=== PATIENT | male | born 1965 | race Caucasian/White ===

== ENCOUNTER 2018-05-18 14:30 | Outpatient (RCR) | payer MEDICAID, SELFPAY ==
--- NOTE | 2018-07-21 13:14 | COCO.CNN ---
Primary Reason for Visit Medical/Dental/Vision (DSMES (Visit date 05/18/18 at [facility]) Referral to Care Coordination Referral to Care Coordination: No Referral to Services: No - Referral From Referral From: PCP Care Plan - Plan of Care Assessment/Background: Edward is here for f/u DSME support. He presents with the following. DM MEDS: Started Victoza 0.6mg 3 days ago. Currently taking U-500 45u at breakfast and supper. Unable to routinely take dose of U-500 at lunch. MONITORING: FBS today 145mg/dl. Had woke up with some sweating in the early AM over the past 2 days, he did not check BS at the time however symptoms relieved with glucose tablets. Previous CGM did show pattern of nocturnal hypoglycemia more than ? the nights in a week. OTHER: Injury to R thigh from latrine cleaner chain ~1wk ago. Had used some ointment initially but is not now. He feels it is ?not? improving. Visual inspection reveals dry, healing/scabbed wound bed ~ thumb size with no pain, erythema or warmth. Bruised area fading. . INTERVENTION: DM MEDS: (Discussed Victoza dosing and what to do if he misses dose, and how to titrate. Reviewed importance of insulin timing). RISK REDUCTION: (Hypoglycemia risks, prevention, treatment protocol. LT complications of hyperglycemia and evident need of mid-day insulin coverage. Wound care/monitoring measures) PROBLEM SOLVING: (options to improve success with lifestyle and DM management). HEALTHY EATING: (Carb ID, goals, carb counting and portion review). Plan of Care: Edward is still interested in moving forward to get his own personal CGM and eventually would like an insulin pump. He is assisted with completing the CGM application so insurance coverage may be determined. Drop supper U-500 by additional 10% to 35u, especially on days he is able to take noon time U-500 dose. F/u appt scheduled with CDE in 2wks. SMPE Self Management Goals: Prevent low blood sugars by taking U-500 BEFORE breakfast and supper meals, and at lunch when able (as above with supper dose reduction). * *. Increase Victoza to 1.2mg on Tuesday and then 1.8mg in 1 more week. Continue to monitor leg wound for s/s of infection. Report in 3 days if no improvement. Confidence Level (enter 1-10): 7 Action Plan/Progress: Pt did not show for 06/14/18 DSMES visit with CDE at [facility]. Attempt made to reschedule. MONET Cabrera, CDE
--- NOTE | 2018-07-21 13:22 | PDOC.CNN_ITS ---
Primary Reason for Visit Medical/Dental/Vision (DSMES (Visit date 05/18/18 at [facility]) Referral to Care Coordination Referral to Care Coordination: No Referral to Services: No - Referral From Referral From: PCP Care Plan - Plan of Care Assessment/Background: Edward is here for f/u DSME support. He presents with the following. DM MEDS: Started Victoza 0.6mg 3 days ago. Currently taking U-500 45u at breakfast and supper. Unable to routinely take dose of U-500 at lunch. MONITORING: FBS today 145mg/dl. Had woke up with some sweating in the early AM over the past 2 days, he did not check BS at the time however symptoms relieved with glucose tablets. Previous CGM did show pattern of nocturnal hypoglycemia more than the nights in a week. 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 Had used some ointment initially but is not now. He feels it is not improving. Visual inspection reveals dry, healing/scabbed wound bed ~ thumb size with no pain, erythema or warmth. Bruised area fading. - . INTERVENTION: DM MEDS: (Discussed Victoza dosing and what to do if he misses dose, and how to titrate. Reviewed importance of insulin timing). RISK REDUCTION: (Hypoglycemia risks, prevention , treatment protocol. LT complications of hyperglycemia and evident need of mid -day insulin coverage. Wound care/monitoring measures) PROBLEM SOLVING: ( options to improve success with lifestyle and DM management). HEALTHY EATING: (Carb ID, goals, carb counting and portion review). Plan of Care: Edward is still interested in moving forward to get his own personal CGM and eventually would like an insulin pump. He is assisted with completing the CGM application so insurance coverage may be determined. Drop supper U-500 by additional 10% to 35u, especially on days he is able to take noon time U-500 dose. F/u appt scheduled with CDE in 2wks. SMPE Self Management Goals: Prevent low blood sugars by taking U-500 BEFORE breakfast and supper meals, and at lunch when able (as above with supper dose reduction). * *. Increase Victoza to 1.2mg on Tuesday and then 1.8mg in 1 more week. Continue to monitor leg wound for s/s of infection. Report in 3 days if no improvement. Confidence Level (enter 1-10): 7 Action Plan/Progress: Pt did not show for 06/14/18 DSMES visit with CDE at [facility]. Attempt made to reschedule. Rick RN, CDE
== END 2018-07-21 14:30 ==
LOC: COCO 14:30
PROVIDERS: PCP Nurse Practitioner Family; Visit Provider Nurse Practitioner
DX: E11.65 Type 2 diabetes mellitus with hyperglycemia (principal)

== ENCOUNTER 2018-07-26 18:56 | Emergency (ER) | payer MEDICAID, SELFPAY ==
[2018-07-26 19:09] VITALS: BP 141/86; PULSE 96; RESP 16; TEMP 36.5; O2SAT 97
--- NOTE | 2018-07-26 20:02 | W.ED.GENAD ---
Discharge Plan Disposition Patient Disposition: HOME Condition: Fair Discharge Details Chief Complaint: Laceration Clinical Impression: Cellulitis Primary Care Provider: Camilla Sherman ED Provider: Cindy Snow Home Meds and New Rx's Prescriptions: New clindamycin HCl 150 mg capsule 450 mg PO TID Qty: 63 RF: 0 No Action clopidogrel 75 MG tablet 75 mg PO DAILY RF: 0 nitroglycerin 0.4 MG tablet, sublingual 0.4 mg Sublingual q5 minutes as direct RF: 0 sertraline [Zoloft] 100 MG tablet 100 mg PO DAILY Qty: 90 RF: 3 metformin 1,000 MG tablet 1,000 mg PO BID Qty: 180 RF: 3 aspirin 81 MG tablet,chewable 81 mg PO DAILY Qty: 90 RF: 3 rosuvastatin [Crestor] 40 MG tablet 40 mg PO HS Qty: 90 RF: 3 lisinopril 5 MG tablet 5 mg PO DAILY Qty: 90 RF: 3 spironolactone 25 MG tablet 12.5 mg PO DAILY RF: 0 blood sugar diagnostic [[employer] Ultra Test] 1 EACH strip 1 ea Miscellaneous AC & HS Qty: 350 RF: 3 lancets 1 EACH misc 1 ea Miscellaneous QID Qty: 350 RF: 3 triamcinolone acetonide 15 GM cream 1 film Topical 2-4 times daily PRN Qty: 1 RF: 0 pen needle, diabetic 1 EACH needle Miscellaneous TID Qty: 300 RF: 3 insulin regular hum U-500 conc [Humulin R U-500 (Conc) Kwikpen] 500 UNIT/1 ML insulin pen SQ See instructions Qty: 5 RF: 0 liraglutide [Victoza 2-Alfonso] 0.6 MG/0.1 ML pen injector 1.2 mg SQ DAILY Qty: 3 RF: 3 metoprolol succinate 100 MG tablet extended release 24 hr 100 mg PO DAILY RF: 0 Discharge Instructions Instructions: Cellulitis (ED) Additional Instructions: Encourage hydration. Take antibiotics as prescribed. If symptoms take the entire course. I would like you to follow-up with recyclable materials collector as soon as possible. If you develop fever/chills, pain, discharge from spreading of the redness or new/worsening symptoms please seek care urgently once again. Please call recyclable materials collector tomorrow to schedule ointment. Referrals: Karlos Worrell DPM [DPM [facility] STAFF PHYSICIAN] - 3 days ( ) Discharge Data Discharge Date/Time-TO BE ENTERED AT DEPARTURE: 07/26/18 20:26 Medical Decision Making [facility] Narrative Medical decision making narrative: Patient presents today with chief complaint of erythema at the base of the right great toe where the nail has recently fallen off. On exam. He is noted to have erythema. No warmth, no discharge. There are bits of the nail still embedded in the base of the nailbed. Patient is afebrile, nontoxic-appearing. Patient is afebrile. Denies any fevers or chills at home. Will be treated with antibiotics and close follow-up with recyclable materials collector. I asked her daycare director to ensure that follow-up does occur. We discussed new/worsening symptoms emergency care urgently once again. All questions and concerns were addressed and he is in agreement with this plan. HPI - General Adult General Mode of arrival: ambulatory. Date/Time Provider Initiated Documentation: 07/26/18 19:47. Limitations to Documentation: no limitations. Information obtained by: patient and family. HPI Narrative: Patient is a 52-year-old type I diabetic presenting today with chief complaint of right great toe erythema. His report that his very thickened toenail fell off last week. He reports that yesterday he began noting erythema at the base of the nail bed. Has not noted any discharge. Patient has severe neuropathy and is insensate at the affected area. He denies any fevers or chills. Reports that he has been ambulating well and has not noted any systemic symptoms. Glucose is typically well controlled. Reports over the past several days it has been around 130 when he is congested. Patient does have a recyclable materials collector in [facility] but has not seen them in quite some time. Related Data Home Medications Medication Instructions Recorded Confirmed clopidogrel 75 mg PO DAILY tab-cap 07/15/17 07/31/18 nitroglycerin 0.4 mg SUBLINGUAL q5 minutes as 07/20/17 07/31/18 direct spironolactone 12.5 mg PO DAILY 08/04/17 07/31/18 metoprolol succinate 100 mg PO DAILY tab-cap 07/19/18 07/31/18 Previous Rx's Medication Instructions Recorded clindamycin HCl 450 mg PO TID #63 cap 07/26/18 Allergies Allergy/AdvReac Type Severity Reaction Status Date / Time bee venom protein (honey bee) Allergy Severe Swelling/Ed Unverified 07/31/18 14:17 capri Penicillins Allergy Unknown Rash Unverified 07/31/18 14:17 shellfish derived Allergy Unknown Rash; Unverified 07/31/18 14:17 swelling General Stated Complaint: Laceration VAN: 3 Review of Systems Constitutional Reports as per HPI, Denies chills and Denies fever(s) Cardiovascular Denies chest pain and Denies dyspnea Respiratory Denies cough and Denies dyspnea Gastrointestinal Denies change in bowel habits, Denies nausea and Denies vomiting Musculoskeletal Reports as per HPI and Reports numbness (associates with chronic peripheral neuropathy secondary to diabetes. No recent chagne in this) Integumentary/Breasts Reports as per HPI Neurologic Reports as per HPI and Reports numbness (associates with chronic peripheral neuropathy secondary to diabetes. No recent chagne in this) Exam Const General: cooperative, comfortable, no acute distress and well developed Nutritional Appearance: overweight Orientation: alert and awake Eyes General: appearance normal, both eyes and all related structures Resp Effort & Inspection: normal respiratory effort and no respiratory distress Auscultation: clear to auscultation bilaterally Cardio Rate: regular rate Rhythm: regular rhythm Heart Sounds: S1 normal and S2 normal Skin General skin exam: rashes and/or lesions noted (please see below for description) Neuro General: alert and awake Cognition: normal cognition Speech: speech normal Gait: normal gait Sensory Exam: sensory deficits noted (bilateral lower extremity numbness) Extrem General: abnormal to inspection (Exam of RLE signfiicant for a missing great toe nail. Surrounding tissue is erythematous and warm. No discharge. No area of fluctuance. The erythema is primarily at the base of the nail bed. Small amounts of nail remain in the bed. Does not extend proximally), full ROM and normal capillary refill (3 second cap refill) Psych Appearance: grossly normal Mental Status: mental status grossly normal Speech and Movement: speech and movement normal Mood: congruent mood Course Vital Signs Temperature 36.5 C 07/26/18 19:09 Pulse 96 H 07/26/18 19:09 Respiratory Rate 16 07/26/18 19:09 Blood Pressure 141/86 H 07/26/18 19:09 Pulse Oximetry 97 07/26/18 19:09 Temperature 36.5 C 07/26/18 19:09 Pulse 96 H 07/26/18 19:09 Respiratory Rate 16 07/26/18 19:09 Blood Pressure 141/86 H 07/26/18 19:09 Pulse Oximetry 97 07/26/18 19:09
--- NOTE | 2018-07-26 20:06 | ED.GENADUL_ITS ---
Discharge Plan Disposition Patient Disposition: HOME Condition: Fair Discharge Details Chief Complaint: Laceration Clinical Impression: Cellulitis Primary Care Provider: Camilla Sherman ED Provider: Cindy Snow Home Meds and New Rx's Prescriptions: New clindamycin HCl 150 mg capsule 450 mg PO TID Qty: 63 RF: 0 No Action clopidogrel 75 MG tablet 75 mg PO DAILY RF: 0 nitroglycerin 0.4 MG tablet, sublingual 0.4 mg Sublingual q5 minutes as direct RF: 0 sertraline [Zoloft] 100 MG tablet 100 mg PO DAILY Qty: 90 RF: 3 metformin 1,000 MG tablet 1,000 mg PO BID Qty: 180 RF: 3 aspirin 81 MG tablet,chewable 81 mg PO DAILY Qty: 90 RF: 3 rosuvastatin [Crestor] 40 MG tablet 40 mg PO HS Qty: 90 RF: 3 lisinopril 5 MG tablet 5 mg PO DAILY Qty: 90 RF: 3 spironolactone 25 MG tablet 12.5 mg PO DAILY RF: 0 blood sugar diagnostic [[employer] Ultra Test] 1 EACH strip 1 ea Miscellaneous AC & HS Qty: 350 RF: 3 lancets 1 EACH misc 1 ea Miscellaneous QID Qty: 350 RF: 3 triamcinolone acetonide 15 GM cream 1 film Topical 2-4 times daily PRN Qty: 1 RF: 0 pen needle, diabetic 1 EACH needle Miscellaneous TID Qty: 300 RF: 3 insulin regular hum U-500 conc [Humulin R U-500 (Conc) Kwikpen] 500 UNIT/1 ML insulin pen SQ See instructions Qty: 5 RF: 0 liraglutide [Victoza 2-Alfonso] 0.6 MG/0.1 ML pen injector 1.2 mg SQ DAILY Qty: 3 RF: 3 metoprolol succinate 100 MG tablet extended release 24 hr 100 mg PO DAILY RF: 0 Discharge Instructions Instructions: Cellulitis (ED) Additional Instructions: Encourage hydration. Take antibiotics as prescribed. If symptoms take the entire course. I would like you to follow-up with physical instructor as soon as possible. If you develop fever/chills, pain, discharge from spreading of the redness or new/worsening symptoms please seek care urgently once again. Please call physical instructor tomorrow to schedule ointment. Referrals: Karlos Worrell DPM [DPM [facility] STAFF PHYSICIAN] - 3 days ( ) Discharge Data Discharge Date/Time-TO BE ENTERED AT DEPARTURE: 07/26/18 20:26 Medical Decision Making [facility] Narrative Medical decision making narrative: Patient presents today with chief complaint of erythema at the base of the right great toe where the nail has recently fallen off. On exam. He is noted to have erythema. No warmth, no discharge. There are bits of the nail still embedded in the base of the nailbed. Patient is afebrile, nontoxic-appearing. Patient is afebrile. Denies any fevers or chills at home. Will be treated with antibiotics and close follow-up with physical instructor. I asked her career technical supervisor to ensure that follow-up does occur. We discussed new/worsening symptoms emergency care urgently once again. All questions and concerns were addressed and he is in agreement with this plan. HPI - General Adult General Mode of arrival: ambulatory . Date/Time Provider Initiated Documentation: 07/26/18 19:47 . Limitations to Documentation: no limitations . Information obtained by: patient and family . HPI Narrative: Patient is a 52-year-old type I diabetic presenting today with chief complaint of right great toe erythema. His report that his very thickened toenail fell off last week. He reports that yesterday he began noting erythema at the base of the nail bed. Has not noted any discharge. Patient has severe neuropathy and is insensate at the affected area. He denies any fevers or chills. Reports that he has been ambulating well and has not noted any systemic symptoms. Glucose is typically well controlled. Reports over the past several days it has been around 130 when he is congested. Patient does have a physical instructor in [facility] but has not seen them in quite some time. Related Data Home Medications Medication Instructions Recorded Confirmed clopidogrel 75 mg PO DAILY tab-cap 07/15/17 07/31/18 nitroglycerin 0.4 mg SUBLINGUAL q5 minutes as 07/20/17 07/31/18 direct spironolactone 12.5 mg PO DAILY 08/04/17 07/31/18 metoprolol succinate 100 mg PO DAILY tab-cap 07/19/18 07/31/18 Previous Rx's Medication Instructions Recorded clindamycin HCl 450 mg PO TID #63 cap 07/26/18 Allergies Allergy/AdvReac Type Severity Reaction Status Date / Time bee venom protein (honey bee) Allergy Severe Swelling/Ed Unverified 07/31/18 14: 17 capri Penicillins Allergy Unknown Rash Unverified 07/31/18 14:17 shellfish derived Allergy Unknown Rash; Unverified 07/31/18 14:17 swelling General Stated Complaint: Laceration VAN: 3 Review of Systems Constitutional Reports as per HPI, Denies chills and Denies fever(s) Cardiovascular Denies chest pain and Denies dyspnea Respiratory Denies cough and Denies dyspnea Gastrointestinal Denies change in bowel habits, Denies nausea and Denies vomiting Musculoskeletal Reports as per HPI and Reports numbness (associates with chronic peripheral neuropathy secondary to diabetes. No recent chagne in this) Integumentary/Breasts Reports as per HPI Neurologic Reports as per HPI and Reports numbness (associates with chronic peripheral neuropathy secondary to diabetes. No recent chagne in this) Exam Const General: cooperative, comfortable, no acute distress and well developed Nutritional Appearance: overweight Orientation: alert and awake Eyes General: appearance normal, both eyes and all related structures Resp Effort & Inspection: normal respiratory effort and no respiratory distress Auscultation: clear to auscultation bilaterally Cardio Rate: regular rate Rhythm: regular rhythm Heart Sounds: S1 normal and S2 normal Skin General skin exam: rashes and/or lesions noted (please see below for description ) Neuro General: alert and awake Cognition: normal cognition Speech: speech normal Gait: normal gait Sensory Exam: sensory deficits noted (bilateral lower extremity numbness) Extrem General: abnormal to inspection (Exam of RLE signfiicant for a missing great toe nail. Surrounding tissue is erythematous and warm. No discharge. No area of fluctuance. The erythema is primarily at the base of the nail bed. Small amounts of nail remain in the bed. Does not extend proximally), full ROM and normal capillary refill (3 second cap refill) Psych Appearance: grossly normal Mental Status: mental status grossly normal Speech and Movement: speech and movement normal Mood: congruent mood Course Vital Signs Temperature 36.5 C 07/26/18 19:09 Pulse 96 H 07/26/18 19:09 Respiratory Rate 16 07/26/18 19:09 Blood Pressure 141/86 H 07/26/18 19:09 Pulse Oximetry 97 07/26/18 19:09 Temperature 36.5 C 07/26/18 19:09 Pulse 96 H 07/26/18 19:09 Respiratory Rate 16 07/26/18 19:09 Blood Pressure 141/86 H 07/26/18 19:09 Pulse Oximetry 97 07/26/18 19:09
[2018-07-26] MEDS: Clindamycin 150 MG CAP 450 MG PO ×2 (20:20)
[2018-07-26 20:24] VITALS: BP 133/93; PULSE 90; RESP 16; TEMP 37; O2SAT 100
--- NOTE | 2018-07-31 10:48 | PDOC.ERCMPRO ---
Care Management Progress Note 07/31/18-Pt seen in ED on 07/26/18 by DEEPAK Roldan for infected Right Great Toe due poorly controlled Diabetes. Referral faxed to Dr. Josseline Worrell at [facility].
== END 2018-07-26 20:26 | disposition home or self-care (01) ==
PROVIDERS: Emergency Provider Physician Assistant; PCP Nurse Practitioner Family
DX: L03.031 Cellulitis of right toe (principal); I11.0 Hypertensive heart disease with heart failure; I50.9 Heart failure, unspecified; E11.9 Type 2 diabetes mellitus without complications; Z79.4 Long term (current) use of insulin
CPT/HCPCS: 99283

== ENCOUNTER 2018-10-27 06:55 | Day surgery (SDC) | payer MEDICAID, SELFPAY ==
[2018-10-27 07:22] VITALS: BP 128/88; PULSE 99; RESP 20; TEMP 35.3; O2SAT 96
[2018-10-27] MEDS: Lactated Ringers 1,000 ML 30 ML IV (07:49)
--- NOTE | 2018-10-27 08:40 | W.COLOREPORT ---
Date of service: 10/27/18 Time of Service: 08:40 Colonoscopy Report Date of procedure: 10/27/18 Pre-op diagnosis general: Personal history of colon polyps Post-op diagnosis procedure note: other (Normal colon to the cecum) Procedure: Colonoscopy to the cecum Surgeon: Garcia Perry Anesthesia proc note operative: MAC (Rodriguez Kumar CRNA; ASA 2 Mallampati class II) Estimated blood loss (mL): 0 Pathology: none sent Complications: None Disposition: same day Indications: 52-year-old gentleman presenting for colorectal cancer screening with a personal history of colon polyps. He is been asymptomatic since his last colonoscopy, and has no family history of colorectal cancer. The risks and benefits of the procedure have been reviewed with him as has the procedure itself. Consents been obtained to proceed with colonoscopy Prep: Miralax/Dulcolax (Prep quality good) Procedure Start Time: 08:42 Procedure End Time: 09:10 Retraction Time: 15 Findings: In examining the colon from cecum to anus, no abnormalities were noted. Procedure Description: The patient was seen in the day surgery waiting area. His identification was confirmed, and procedure checked. He was then brought to the procedure room. Monitoring for telemetry, blood pressure, oxygen saturation, and end tidal CO2 monitoring were applied. An appropriate time out was performed to confirm, identification, allergies, medication, procedure, was performed. Sedation was titrated for affect by the [employer]; Once adequate sedation was achieved, I performed a inspection of the external perineum, and a digitial rectal examination. No significant external abnormalities were noted. On digital rectal examination, there was no blood, no masses, good rectal tone, and a normal prostate. I advanced the colonoscope from the anus to the cecum under direct visualization. The cecum was identified by the ileal-cecal valve, and the appendiceal orifice. The scope was then withdrawn in circumferential manner from the cecum to the rectum. No abnormalites were noted in the colon. The scope was then withdrawn into the rectum, and retroflexed. No abnormalities were noted of the rectum or anorectal junction. The scope was then withdrawn, terminating the procedure. There were no complications during the procedure, and the patient tolerated the procedure well. He was returned to the day surgery recovery area in good condition. Plan: Will continue with routine screening for colorectal cancer according to current consensus guidelines, which is currently 10 years.
--- NOTE | 2018-10-27 09:19 | W.PM.DSUDISC ---
Discharge Plan Disposition Patient Disposition: HOME Condition: Good Discharge Details Reason For Visit: SCREENING Attending Provider: Garcia Perry Primary Care Provider: Camilla Sherman Home Meds and New Rx's Prescriptions: Continue empagliflozin [Jardiance] 25 mg tablet 25 mg PO DAILY Qty: 90 RF: 3 gabapentin 100 mg capsule 100 mg PO .QHS PRN (Reason: foot pain) Qty: 20 RF: 0 clopidogrel 75 MG tablet 75 mg PO DAILY RF: 0 nitroglycerin 0.4 MG tablet, sublingual 0.4 mg Sublingual q5 minutes as direct RF: 0 metformin 1,000 MG tablet 1,000 mg PO BID Qty: 180 RF: 3 aspirin 81 MG tablet,chewable 81 mg PO DAILY Qty: 90 RF: 3 spironolactone 25 MG tablet 12.5 mg PO DAILY RF: 0 blood sugar diagnostic [[employer] Ultra Test] 1 EACH strip 1 ea Miscellaneous AC & HS Qty: 350 RF: 3 lancets 1 EACH misc 1 ea Miscellaneous QID Qty: 350 RF: 3 pen needle, diabetic 1 EACH needle Miscellaneous TID Qty: 300 RF: 3 insulin regular hum U-500 conc [Humulin R U-500 (Conc) Kwikpen] 500 UNIT/1 ML insulin pen 40 unit SQ BID Qty: 5 RF: 0 metoprolol succinate 100 MG tablet extended release 24 hr 100 mg PO DAILY RF: 0 lisinopril 5 mg tablet 5 mg PO DAILY Qty: 90 RF: 3 rosuvastatin [Crestor] 40 mg tablet 40 mg PO DAILY Qty: 90 RF: 3 sertraline [Zoloft] 100 mg tablet 100 mg PO DAILY Qty: 90 RF: 3 triamcinolone acetonide 15 GM cream 1 film Topical 2-4 times daily PRN PRNRF: 0 liraglutide [Victoza 2-Alfonso] 0.6 MG/0.1 ML pen injector 1.8 mg SQ DAILY RF: 0 Discharge Instructions Instructions: Colonoscopy (DC) Activity:: Activity as Tolerated Diet:: As Tolerated Discharge Orders Discharge Orders: Discharge Order (Routine); Ordered 10/27/18 Ordered By: Garcia Perry DS: Diagnosis Discharge Diagnosis (1) Personal history of colonic polyps: Status: Acute Asessment and Plan: Colonoscopy performed: Colonoscopy Report Date of procedure: 10/27/18 Pre-op diagnosis general: Personal history of colon polyps Post-op diagnosis procedure note: other (Normal colon to the cecum) Procedure: Colonoscopy to the cecum Surgeon: Garcia Perry Anesthesia proc note operative: MAC (Rodriguez Kumar CRNA; ASA 2 Mallampati class II) Estimated blood loss (mL): 0 Pathology: none sent Complications: None Disposition: same day Indications: 52-year-old gentleman presenting for colorectal cancer screening with a personal history of colon polyps. He is been asymptomatic since his last colonoscopy, and has no family history of colorectal cancer. The risks and benefits of the procedure have been reviewed with him as has the procedure itself. Consents been obtained to proceed with colonoscopy Prep: Miralax/Dulcolax (Prep quality good) Procedure Start Time: 08:42 Procedure End Time: 09:10 Retraction Time: 15 Findings: In examining the colon from cecum to anus, no abnormalities were noted. Procedure Description: The patient was seen in the day surgery waiting area. His identification was confirmed, and procedure checked. He was then brought to the procedure room. Monitoring for telemetry, blood pressure, oxygen saturation, and end tidal CO2 monitoring were applied. An appropriate time out was performed to confirm, identification, allergies, medication, procedure, was performed. Sedation was titrated for affect by the PLANT OPERATOR CONTROL ROOM OPERATOR; Once adequate sedation was achieved, I performed a inspection of the external perineum, and a digitial rectal examination. No significant external abnormalities were noted. On digital rectal examination, there was no blood, no masses, good rectal tone, and a normal prostate. I advanced the colonoscope from the anus to the cecum under direct visualization. The cecum was identified by the ileal-cecal valve, and the appendiceal orifice. The scope was then withdrawn in circumferential manner from the cecum to the rectum. No abnormalites were noted in the colon. The scope was then withdrawn into the rectum, and retroflexed. No abnormalities were noted of the rectum or anorectal junction. The scope was then withdrawn, terminating the procedure. There were no complications during the procedure, and the patient tolerated the procedure well. He was returned to the day surgery recovery area in good condition. Plan: Will continue with routine screening for colorectal cancer according to current consensus guidelines, which is currently 10 years.
[2018-10-27 09:40] VITALS: BP 126/79; PULSE 100; RESP 18; TEMP 36.4; O2SAT 99
== END 2018-10-27 09:55 | disposition home or self-care (01) ==
PROVIDERS: PCP Nurse Practitioner Family; Visit Provider Surgery
PROC: 0DJD8ZZ Inspection of Lower Intestinal Tract, Via Natural or Artificial Opening Endoscopic (ICD-10-PCS; CPT 45378; principal; 2018-10-27 08:15)
DX: Z12.11 Encounter for screening for malignant neoplasm of colon (principal); Z86.010 Personal history of colon polyps; E11.9 Type 2 diabetes mellitus without complications; Z79.4 Long term (current) use of insulin; I10 Essential (primary) hypertension; G47.33 Obstructive sleep apnea (adult) (pediatric); I25.10 Atherosclerotic heart disease of native coronary artery without angina pectoris
CPT/HCPCS: 45378

== ENCOUNTER 2018-11-02 05:57 | Emergency (ER) | payer MEDICAID, SELFPAY ==
[2018-11-02] VITALS (47 sets, daily range): BP systolic 103–118; BP diastolic 72–86; PULSE 93–115; RESP 12–38; O2SAT 90–96
--- NOTE | 2018-11-02 06:38 | DI.RAD_ITS ---
SYMPTOM/DIAGNOSIS: CHEST PAIN CHEST X-RAY: Portable AP view. The cardiac silhouette is within normal limits. The lungs are clear and well expanded. No effusions or pneumothoraces are identified. The bones are intact. There is a gas bubble seen in the region of the left hemidiaphragm which appears mostly subdiaphragmatic. There is a question of a supradiaphragmatic component and a hiatal hernia, or gastric volvulus should be considered. Follow up as clinically appropriate.
[2018-11-02] MEDS: Normal Saline Flush 10 ML SYR IVP (06:39)
[2018-11-02] MEDS: fentaNYL 100 MCG/2 ML VIAL IM (06:40)
[2018-11-02] MEDS: Aspirin 81 MG CHEW 243 MG CH (06:41)
--- NOTE | 2018-11-02 06:46 | ED.GENADUL_ITS ---
Discharge Plan Disposition Patient Disposition: HOME Condition: Stable Discharge Details Clinical Impression: Chest pain Primary Care Provider: Camilla Sherman ED Provider: Jaime Taylor Home Meds and New Rx's Prescriptions: No Action empagliflozin [Jardiance] 25 mg tablet 25 mg PO DAILY Qty: 90 RF: 3 gabapentin 100 mg capsule 100 mg PO .QHS PRN (Reason: foot pain) Qty: 20 RF: 0 clopidogrel 75 MG tablet 75 mg PO DAILY RF: 0 nitroglycerin 0.4 MG tablet, sublingual 0.4 mg Sublingual q5 minutes as direct RF: 0 metformin 1,000 MG tablet 1,000 mg PO BID Qty: 180 RF: 3 aspirin 81 MG tablet,chewable 81 mg PO DAILY Qty: 90 RF: 3 spironolactone 25 MG tablet 12.5 mg PO DAILY RF: 0 blood sugar diagnostic [[employer] Ultra Test] 1 EACH strip 1 ea Miscellaneous AC & HS Qty: 350 RF: 3 lancets 1 EACH misc 1 ea Miscellaneous QID Qty: 350 RF: 3 pen needle, diabetic 1 EACH needle Miscellaneous TID Qty: 300 RF: 3 insulin regular hum U-500 conc [Humulin R U-500 (Conc) Kwikpen] 500 UNIT/1 ML insulin pen 40 unit SQ BID Qty: 5 RF: 0 metoprolol succinate 100 MG tablet extended release 24 hr 100 mg PO DAILY RF: 0 lisinopril 5 mg tablet 5 mg PO DAILY Qty: 90 RF: 3 rosuvastatin [Crestor] 40 mg tablet 40 mg PO DAILY Qty: 90 RF: 3 sertraline [Zoloft] 100 mg tablet 100 mg PO DAILY Qty: 90 RF: 3 triamcinolone acetonide 15 GM cream 1 film Topical 2-4 times daily PRN PRNRF: 0 liraglutide [Victoza 2-Alfonso] 0.6 MG/0.1 ML pen injector 1.8 mg SQ DAILY RF: 0 Discharge Instructions Instructions: Chest Pain (ED) Additional Instructions: Please follow-up on November 08 at 1030 for your stress test here in the hospital. In the meantime if you notice any worsening of your symptoms, or any new symptoms such as vomiting, diarrhea, fever, chills, shortness of breath, chest pain, numbness, weakness, or fainting , please return immediately to the emergency department for reevaluation. Please follow up with your primary care provider as soon as possible for reassessment and reevaluation. As always, it was a pleasure participating in your medical care today. Referrals: Camilla Sherman NP [Primary Care Provider] - Medical Decision Making <Pantera Booth MD - Last Filed: 11/02/18 07:14> 53 yo male who states he has a hx of cad with prior stent placement, T2DM, htn, who comes in with chief complaint of chest pain while laying down around 430 this morning. He denies any recent sob, fevers, chills. Denies radiation of the pain, n/v, diaphoresis. HE is in no distress on my exam, no jvd or pedal edema, no abd tenderness, clear lungs on auscultation. HE tried nitro prior to arrival without relief. He has a heart score of 3 based on risk factors and age, will send troponin. He has no significant tachycardia or hypoxia and no evidence of dvt so doubt PE. Has no tearing back pain so doubt dissection and normal vascular exam. labs show no acute findings, he remains hd stable. Recommended observation but he declined and has capacity to make his own decisions, understands risks/benefits including /becoming disabled. HE is willing to stay for a second troponin so will order this and will be signed out to oncoming provider for continued monitoring Differential Diagnosis nstemi, chest wall pain, dissection Imaging Data Radiologic Study: Attestation: I personally reviewed and interpreted this imaging study as follows: Imaging: X-Ray My impression: no acute findings, does have elevation of right hemidiaphragm Lab Data Lab results reviewed: Yes I reviewed the patient's lab results. ECG Data Attestation: I personally reviewed and interpreted this ECG (s) as follows: Interpretation: sinus tachycardia, rate of 111, pr 192, qtc 440, no acute ischemic findings <Jaime Taylor DO - Last Filed: 11/02/18 11:28> The patient was signed out to me my my colleague Dr. Booth. Patient has been doing well, he is still chest pain-free at this time. Heart rate appears stable at around 100-103. While waiting for the second troponin I did order a d-dimer, out of concern for the low likelihood of a PE. D-dimer was negative. Lung sounds remain clear, the patient continues to appear hemodynamically stable and is asking to be discharged. Chest x-ray shows evidence of suspected hiatal hernia, however the radiologist said gastric volvulus may be on the differential of symptomatology correlated with this. Repeat exam demonstrates no abdominal tenderness whatsoever, no complaint of abdominal tenderness, and no history of nausea or vomiting. The patient signs and symptoms are clinically inconsistent with a gastric volvulus. I feel his symptoms are secondary to a hiatal hernia for the chest x-ray findings. With a negative EKG, serial troponins that are negative, and a negative d-dimer, after being rehydrated and still continuing to feel very well I feel he can be discharged home with close cardiology follow-up, as well as an outpatient stress test. 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 We discussed red flags for which to return and the patient understands. We also again offered admission the patient is refusing this and requested to be discharged. I have extensively reviewed the treatment plan and discharge instructions with the patient. I have addressed all patient concerns at this time. The patient was made aware of what symptoms to monitor for that would warrant a return to the emergency department. Discussed the plan with the patient, they demonstrate verbal understanding and agreement with our assessment and plan at this time. CHEST X-RAY: Portable AP view. The cardiac silhouette is within normal limits. The lungs are clear and well expanded. No effusions or pneumothoraces are identified. The bones are intact. There is a gas bubble seen in the region of the left hemidiaphragm which appears mostly subdiaphragmatic. There is a question of a supradiaphragmatic component and a hiatal hernia, or gastric volvulus should be considered. Follow up as clinically appropriate. HPI <Pantera Booth MD - Last Filed: 11/02/18 07:14> General Mode of arrival: ambulatory . Date/Time Provider Initiated Documentation: 11/02/18 06:37 . Limitations to Documentation: no limitations . Information obtained by: patient . History of Present Illness 53 year old M presents to the emergency department with the chief complaint of chest pain, described as moderate, with intensity rated at 5. Quality is described as aching, and is localized to the chest. Patient reports no radiation. Patient started experiencing this hour(s) (2) and it has been constant. No relieving factors improve symptom(s), No exacerbating factors reported . P atient notes no other symptoms.. Patient did receive the following treatments prior to arrival, other (nitro) Related Data Home Medications Medication Instructions Recorded Confirmed clopidogrel 75 mg PO DAILY tab-cap 07/15/17 10/27/18 nitroglycerin 0.4 mg SUBLINGUAL q5 minutes as 07/20/17 10/27/18 direct aspirin 81 mg PO DAILY #90 tab-cap 07/28/17 10/27/18 metformin 1,000 mg PO BID #180 tab-cap 07/28/17 10/27/18 spironolactone 12.5 mg PO DAILY 08/04/17 10/27/18 blood sugar diagnostic [OneTouch #350 strip 08/16/17 08/07/18 Ultra Test] lancets #350 ea 08/24/17 08/07/18 pen needle, diabetic #300 03/02/18 08/07/18 insulin regular hum U-500 conc 40 unit SQ BID #5 box 05/01/18 10/27/18 [Humulin R U-500 (Conc) Kwikpen] metoprolol succinate 100 mg PO DAILY tab-cap 07/19/18 10/27/18 empagliflozin 25 mg tablet 25 mg PO DAILY #90 tab-cap 08/11/18 10/27/18 lisinopril 5 mg tablet 5 mg PO DAILY #90 tab-cap 09/13/18 10/27/18 rosuvastatin 40 mg tablet 40 mg PO DAILY #90 tab-cap 09/13/18 10/27/18 sertraline 100 mg tablet 100 mg PO DAILY #90 tab-cap 09/13/18 10/27/18 gabapentin 100 mg capsule 100 mg PO .QHS PRN #20 cap 10/10/18 10/27/18 liraglutide [Victoza 2-Alfonso] 1.8 mg SQ DAILY 10/26/18 10/27/18 triamcinolone acetonide 1 film TOPICAL 2-4 times daily PRN 10/26/18 10/27/18 PRN Previous Rx's Medication Instructions Recorded blood sugar diagnostic [OneTouch #350 strip 08/16/17 Ultra Test] lancets #350 ea 08/24/17 empagliflozin 25 mg tablet 25 mg PO DAILY #90 tab-cap 08/11/18 lisinopril 5 mg tablet 5 mg PO DAILY #90 tab-cap 09/13/18 rosuvastatin 40 mg tablet 40 mg PO DAILY #90 tab-cap 09/13/18 sertraline 100 mg tablet 100 mg PO DAILY #90 tab-cap 09/13/18 gabapentin 100 mg capsule 100 mg PO .QHS PRN #20 cap 10/10/18 Allergies Allergy/AdvReac Type Severity Reaction Status Date / Time bee venom protein (honey bee) Allergy Severe Swelling/Ed Unverified 10/27/18 07:09 capri Penicillins Allergy Unknown Rash Unverified 10/27/18 07:09 shellfish derived Allergy Unknown Rash; Unverified 10/27/18 07:09 swelling General VAN: 3 Review of Systems <Pantera Booth MD - Last Filed: 11/02/18 07:14> Review of Systems All systems reviewed & are unremarkable except as noted in HPI and below Constitutional Denies chills, Denies fever(s) and Denies weakness ENT Denies change in voice Cardiovascular Denies chest pain and Denies dyspnea Respiratory Denies dyspnea Gastrointestinal Denies abdominal pain, Denies nausea and Denies vomiting Musculoskeletal Denies joint swelling Neurologic Denies weakness Endocrine Denies cold intolerance and Denies heat intolerance Allergic/Immunologic Denies urticaria PFS <Pantera Booth MD - Last Filed: 11/02/18 07:14> Type 2 diabetes mellitus with retinopathy, with long-term current use of insulin (Chronic 10/27/17) Tubular adenoma of colon (Inactive 10/18/14) Sensorineural hearing loss, bilateral (Chronic 11/24/17) Restless leg syndrome (Chronic 10/31/14) Pulmonary hypertension (Chronic 07/14/17) Obstructive sleep apnea, adult (Chronic 10/31/14) Nonproliferative diabetic retinopathy (Chronic) Noncompliance with medication regimen (Chronic 07/06/13) NSTEMI (non-ST elevated myocardial infarction) (Inactive 07/11/17) Morbid obesity (Chronic 07/06/13) Hyperlipidemia (Chronic 07/06/13) Erectile dysfunction (Chronic 07/06/13) Essential hypertension (Chronic 07/06/13) Elevated ferritin level (Chronic 10/20/17) Depression (Chronic 11/25/11) Conductive hearing loss (Chronic 07/06/13) Chronic HFrEF (heart failure with reduced ejection fraction) (Chronic 07/20/18) ASCVD (arteriosclerotic cardiovascular disease) (Chronic 07/28/17) ASCVD (arteriosclerotic cardiovascular disease) Adult BMI > 30 HFrEF (heart failure with reduced ejection fraction) (07/11/17) HLD (hyperlipidemia) HTN (hypertension) Hyperuricemia NSTEMI (non-ST elevated myocardial infarction) (07/11/17) VIVIANE (obstructive sleep apnea) RLS (restless legs syndrome) T2DM (type 2 diabetes mellitus) Social History number of children: 1 current occupational status: employed 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 Smoking/Tobacco Use Status: Never alcohol intake: current alcohol intake frequency: holidays/special occasions only substance use type: does not use Exam <Pantera Booth MD - Last Filed: 11/02/18 07:14> Const General: no acute distress Orientation: alert HENMT Head: normal to inspection Ears: external ears normal General nose exam: external nose normal Mouth: moist mucous membranes Eyes General: appearance normal, both eyes and all related structures Neck Neck: normal visual inspection Resp Effort & Inspection: normal respiratory effort and able to speak in complete sentences Cardio Rate: regular rate GI Palpation: soft Skin General skin exam: no rashes or lesions noted Neuro General: alert and oriented x3 Extrem General: normal to inspection Psych Mental Status: mental status grossly normal Course <Pantera Booth MD - Last Filed: 11/02/18 07:14> Pain Level 8 11/02/18 06:40
[2018-11-02 06:52] LABS: Anion Gap 14.2 mmol/L (3-11); BUN 25 mg/dL (7-18); CO2 23.8 mmol/L (21.0-32.0); CREATININE 0.87 mg/dL (0.70-1.30); Chloride 99 mmol/L (98-107); Glucose 243 mg/dL (70-100); Magnesium 1.6 mg/dL (1.8-2.4); Potassium 3.9 mmol/L (3.5-5.1); Sodium 137 mmol/L (136-145)
[2018-11-02 06:53] LABS: Troponin I < 0.02 ng/mL (0.00-0.06)
[2018-11-02 06:55] LABS: Abs Immature Grans 0.03 k/cumm (0.0-0.09); Absolute Basophil Count 0.02 k/cumm (0.0-0.2); Absolute Eosinophil Count 0.29 k/cumm (0.0-0.7); Absolute Monocyte Count 0.85 k/cumm (0.11-0.7); Absolute Neutrophil Count 7.81 k/cumm (1.2-6.7); Basophils % 0.2; Eosinophils % 2.9; HCT 47.2 % (40.0-50.0); HGB 17.2 g/dL (13.5-17.5); Immature Grans % 0.3; Mean Corp. HGB Concentration 36.4 g/dL (32.0-36.0); Mean Corpuscular Hemoglobin 30.9 pg (27.0-33.0); Mean Corpuscular Volume 84.7 fL (80-95); Mean Platelet Volume 9.7 fL (8.0-11.0); Monocytes % 8.5; Neutrophils % 78.1; Platelet Count 203 x1000/uL (130-400); RBC 5.57 m/cumm (4.50-6.00); RBC Distribution Width 12.5 % (11.8-14.1)
[2018-11-02 06:57] LABS: INR 1.1 (1.0-3.5); PTT Activated 28.1 sec (21.0-31.4)
[2018-11-02] MEDS: Normal Saline 1,000 ML 1000 ML IV (09:04)
[2018-11-02 09:39] LABS: D-Dimer 266 ng/mlFEU (<500)
[2018-11-02 10:56] LABS: Troponin I 0.02 ng/mL (0.00-0.06)
== END 2018-11-02 11:22 | disposition home or self-care (01) ==
PROVIDERS: Emergency Medicine; Emergency Provider Student in an Organized Health Care Education/Training Program; PCP Nurse Practitioner Family
DX: R07.9 Chest pain, unspecified (principal); I10 Essential (primary) hypertension; E11.9 Type 2 diabetes mellitus without complications; Z79.4 Long term (current) use of insulin; Z95.5 Presence of coronary angioplasty implant and graft
CPT/HCPCS: 36415; 80048; 93005; 96360; 96361; 96372; 99285; 71045; 83735; 84484; 85025; 85379; 85610; 85730; 93010

== ENCOUNTER 2018-11-08 00:19 | Outpatient (CLI) | payer MEDICAID, SELFPAY ==
--- NOTE | 2018-11-08 10:30 | ETT_ITS ---
*[facility]* *[facility]* [address] [place] [address] Stress Electrocardiography Fercho protocol Date of study: 11/08/2018 *PATIENT PRESENTATION* Height: 180.3cm (71in) Blood Pressure: Weight: 115.9kg (255lb) BSA: 2.45m^2 Referring physician: Kendal Carr Ordering physician: Jaime Taylor Impressions: Negative stress test after maximal exercise. Summary: 1. Stress ECG conclusions: The stress ECG is negative. De Jesus treadmill score: 6. This score predicts a low risk of cardiac events. 2. Stress: The target heart rate was achieved. The heart rate response to stress is normal. There is a normal resting blood pressure with an appropriate response to stress. The patient experienced no chest pain during stress. Exercise capacity is moderately diminished for age (7 METS). 3. Baseline ECG: Normal sinus rhythm with left anterior fascicular block. Indication: R07.9. History: REASON FOR VISIT: THIS PATIENT WITH A SIGNIFICANT HISTORY OF INSULIN DEPENDENT DIABETES, CORONARY ARTERY DISEASE WITH STENT PLACEMENT IN 2017 AND HYPERTENSION WAS SEEN IN THE ED ON 11/02/18 BECAUSE OF AN EPISODE OF NON RADIATING CHEST PAIN ON 11/02/18 WHILE LYING DOWN THAT AM. PT REPORTS HE HAS HAD NO FURTHER CHEST PAIN SINCE THE AM OF 11/02/18. Risk factors: Hypertension. Diabetes mellitus. Obesity. Dyslipidemia. Cholesterol: 212mg/dl. HDL: 42mg/dl. LDL: 36mg/dl. Triglycerides: 123mg/dl. ALLERGIES: PENICILLIN. SHRIMP. BEE STINGS. MEDICATIONS: CLOPIDOGREL 75 MG DAILY. NITROGLYCERIN 0.4 MG PRN. LISINOPRIL 5 MG DAILY. ASPIRIN 81 MG DAILY. METFORMIN 1000 MG BID. ROSUVASTATIN 40 MG DAILY. SERTRALINE 100 MG DAILY. INSULIN U-500 40 UNITS MORNING AND HS. INSULIN U-500 5 UNITS AT NOON. SPIRONOLACTONE 12.5 MG DAILY. CARVEDILOL 12.5 MG BID. HYDROCHLOROTHIAZIDE 25 MG DAILY. VICTOZA 1.8 MG SQ Q AM. Protocol: Fercho protocol. Baseline ECG: SINUS RHYTHM. HR 97 BPM. Normal sinus rhythm with left anterior fascicular block. Stress protocol: + +---+ + !Stage !HR !BP (mmHg) ! + +---+ + !Baseline supine !97 !142/98 (113)! + +---+ + !Baseline standing !119!122/82 (95) ! + +---+ + !Stage I; 1.7mph, 10degrees; 3 min !129!126/82 (97) ! + +---+ + !Stage II; 2.5mph, 12degrees; 3 min!143!168/92 (117)! + +---+ + !Peak stress !143! ! + +---+ + !Immediate post stress !143!130/78 (95) ! + +---+ + !Recovery; 3 min !106!152/98 (116)! + +---+ + !Recovery; 6 min !103!136/78 (97) ! + +---+ + * Stress results: Maximal heart rate during stress was 143bpm (87% of maximal predicted heart rate). The maximal predicted heart rate was 165bpm. The target heart rate was achieved. The heart rate response to stress is normal. There is a normal resting blood pressure with an appropriate response to stress. The rate-pressure product for the peak heart rate and blood pressure was 65643gi Hg/min. The patient experienced no chest pain during stress. Exercise capacity is moderately diminished for age (7 METS). Stress ECG: TREADMILL PORTION OF STRESS TEST ENDED IN 5 MINUTES & 53 SECONDS DUE TO SHORTNESS OF BREATH AND FATIGUE. NORMAL HEART RATE AND BLOOD PRESSURE RESPONSE TO EXERCISE MAX HR = 143 % OF TARGET = 86 NO ECTOPY APPROXIMATE METS ACHIEVED = 7.05 NO ANGINA NO SIGNIFICANT ST SEGMENT CHANGES MODERATELY DIMINISHED FUNCTIONAL CAPACITY FOR EXERCISE. The stress ECG is negative. De Jesus treadmill score: 6. This score predicts a low risk of cardiac events. Study data: Gonzalo Wilson MD supervised and was readily available during the procedure. This study was interpreted by [facility]. Study status: Routine. Consent: The risks, benefits, and alternatives to the procedure were explained to the patient and informed consent was obtained. Procedure: Initial setup. A baseline ECG was recorded. Surface ECG leads and manual cuff blood pressure measurements were monitored. Heart sounds: Normal. Lung sounds: Normal. Treadmill exercise testing was performed using the Fercho protocol. Study completion: The patient tolerated the procedure well and was discharged from the lab. Discharge: The patient left the laboratory in stable condition. Birthdate: Patient birthdate: 1965. Sex: Gender: male. Study date: Study date: 11/08/2018. Study time: 10:30 AM. Signature Documentation: The Stress ECG portion of this study was interpreted by Gonzalo Wilson MD. Electronically signed by Gonzalo Wilson 11/08/2018 13:13
== END 2018-11-08 00:39 ==
PROVIDERS: PCP Nurse Practitioner Family; Visit Provider Student in an Organized Health Care Education/Training Program
DX: R07.9 Chest pain, unspecified (principal); E11.9 Type 2 diabetes mellitus without complications; Z79.4 Long term (current) use of insulin; I10 Essential (primary) hypertension; I25.2 Old myocardial infarction; I25.10 Atherosclerotic heart disease of native coronary artery without angina pectoris; Z95.5 Presence of coronary angioplasty implant and graft
CPT/HCPCS: 93017

== ENCOUNTER 2018-11-08 09:36 | Outpatient (CLI) | payer MEDICAID, SELFPAY ==
[2018-11-08 10:27] LABS: Abs Immature Grans 0.03 k/cumm (0.0-0.09); Absolute Basophil Count 0.03 k/cumm (0.0-0.2); Absolute Eosinophil Count 0.16 k/cumm (0.0-0.7); Absolute Lymphocyte Count 1.87 k/cumm (1.2-3.4); Absolute Neutrophil Count 4.45 k/cumm (1.2-6.7); Basophils % 0.4; Eosinophils % 2.3; HCT 46.8 % (40.0-50.0); HGB 16.5 g/dL (13.5-17.5); Immature Grans % 0.4; Lymphocytes % 26.6; Mean Corp. HGB Concentration 35.3 g/dL (32.0-36.0); Mean Corpuscular Hemoglobin 30.4 pg (27.0-33.0); Mean Corpuscular Volume 86.3 fL (80-95); Mean Platelet Volume 9.6 fL (8.0-11.0); Monocytes % 7.1; Neutrophils % 63.2; Platelet Count 234 x1000/uL (130-400); RBC 5.42 m/cumm (4.50-6.00); RBC Distribution Width 12.6 % (11.8-14.1); White Blood Cell Count 7.04 k/cumm (4.4-10.8)
[2018-11-08 11:12] LABS: ALT 62 U/L (12-78); AST 24 U/L (15-37); Alkaline Phosphatase 150 U/L (46-116); Anion Gap 10.6 mmol/L (3-11); BUN 25 mg/dL (7-18); Bilirubin, Total 0.5 mg/dL (0.2-1.0); CO2 25.4 mmol/L (21.0-32.0); Calcium 10.3 mg/dL (8.5-10.1); Chloride 98 mmol/L (98-107); Cholesterol 187 mg/dL (50-200); Glucose 363 mg/dL (70-100); HDL Cholesterol 35 mg/dL (40-60); LDL CHOLESTEROL 84 mg/dL (<100); Magnesium 1.9 mg/dL (1.8-2.4); Potassium 4.7 mmol/L (3.5-5.1); Sodium 134 mmol/L (136-145); Total Protein 7.4 g/dL (6.4-8.2); Triglyceride 473 mg/dL (30-150)
[2018-11-08 11:13] LABS: Microalb ug/mg Crea 46.3 ug/mg Cr
[2018-11-08 11:17] LABS: Ferritin 677 ng/mL (8-388)
== END 2018-11-08 09:56 ==
PROVIDERS: PCP Nurse Practitioner Family; Visit Provider Nurse Practitioner Family
DX: E83.42 Hypomagnesemia (principal); E11.65 Type 2 diabetes mellitus with hyperglycemia; E78.5 Hyperlipidemia, unspecified; Z79.4 Long term (current) use of insulin
CPT/HCPCS: 36415; 80053; 80061; 83721; 82043; 82570; 82728; 83735; 85025

== ENCOUNTER 2019-02-05 11:17 | Outpatient (CLI) | payer MEDICAID, SELFPAY ==
[2019-02-05 12:10] LABS: Albumin 3.9 g/dL (3.4-5.0); Calcium 9.5 mg/dL (8.5-10.1)
== END 2019-02-05 11:37 ==
PROVIDERS: PCP Nurse Practitioner Family; Visit Provider Nurse Practitioner Family
DX: E83.52 Hypercalcemia (principal)
CPT/HCPCS: 36415; 82040; 82310

== ENCOUNTER 2019-02-13 11:45 | Observation (INO) | payer MEDICAID, SELFPAY ==
[2019-02-13] VITALS (54 sets, daily range): BP systolic 108–137; BP diastolic 71–90; PULSE 70–97; RESP 14–24; TEMP 36–36.6; O2SAT 94–99
--- NOTE | 2019-02-13 12:08 | DI.RAD_ITS ---
SYMPTOMS/DIAGNOSIS: CHEST PAIN PORTABLE AP CHEST AT 12:35 HOURS: There is mild elevation of the diaphragm on the right as noted on previous examinations. The heart is not enlarged. The lungs are grossly clear. CONCLUSION: No evidence of acute disease.
--- NOTE | 2019-02-13 12:09 | W.ED.GENAD ---
Discharge Plan Disposition Patient Disposition: [facility] INPATIENT Condition: Fair Discharge Details Chief Complaint: Chest Pain Clinical Impression: Chest pain Primary Care Provider: Camilla Sherman ED Provider: Anson Chew [place] Meds and New Rx's Prescriptions: No Action Jardiance 25 mg tablet 25 mg PO DAILY Qty: 90 RF: 3 gabapentin 100 mg capsule 100 mg PO .QHS PRN (Reason: foot pain) Qty: 20 RF: 0 spironolactone 25 mg tablet 12.5 mg PO DAILY Qty: 45 RF: 3 clopidogrel 75 MG tablet 75 mg PO DAILY RF: 0 OneTouch Ultra Test 1 EACH strip 1 ea Miscellaneous AC & HS Qty: 350 RF: 3 lancets 1 EACH misc 1 ea Miscellaneous QID Qty: 350 RF: 3 pen needle, diabetic 1 EACH needle Miscellaneous TID Qty: 300 RF: 3 metoprolol succinate 100 MG tablet extended release 24 hr 100 mg PO DAILY RF: 0 lisinopril 5 mg tablet 5 mg PO DAILY Qty: 90 RF: 3 rosuvastatin [Crestor] 40 mg tablet 40 mg PO DAILY Qty: 90 RF: 3 sertraline [Zoloft] 100 mg tablet 100 mg PO DAILY Qty: 90 RF: 3 Humulin R U-500 (Conc) Kwikpen 500 unit/mL (3 mL) insulin pen 40 unit subcut BID Qty: 5 RF: 6 metformin 1,000 mg tablet 1,000 mg PO BID Qty: 180 RF: 3 nitroglycerin 0.4 mg tablet, sublingual 0.4 mg SL Q5M MDD 3 doses PRN (Reason: chest pain) Qty: 30 RF: 0 aspirin 81 mg tablet,chewable 81 mg PO DAILY Qty: 90 RF: 3 triamcinolone acetonide 15 GM cream 1 film Topical 2-4 times daily PRN PRNRF: 0 Victoza 2-Alfonso 0.6 MG/0.1 ML pen injector 1.8 mg SQ DAILY RF: 0 Medical Decision Making Patient presenting with dyspnea with exertion for the last few days associated with a couple episodes of chest pain at rest. Nitroglycerin resolved his chest pain this morning. His initial EKG shows sinus rhythm at [address] segments. Pulse ox is normal. He has no symptoms currently. He will receive aspirin and we will obtain labs and chest x-ray. I will discuss with cardiology at [facility] but at the very least he should be admitted here to trend his troponins and receive stress testing. Laboratory studies are unremarkable other than his glucose being elevated to 375 and his magnesium being a little low at 1.6. First troponin is negative. Chest x-ray is unremarkable per radiology. Case discussed with cardiology at [facility]. Agree with admission to trend troponins as well as to observe for any further episodes of chest pain. If no issues overnight, echo and stress testing in the morning. Continue his aspirin and Plavix but no heparin necessary at this time. If his troponin trends positive or he redevelops symptoms recommend contacting [facility]. Case discussed with hospitalist. The above discussion with cardiology was relayed to hospitalist, Dr. Yoon. Patient accepted for admission to telemetry for further management and evaluation. Lab Data Lab results reviewed: Yes I reviewed the patient's lab results. ECG Data Attestation: I personally reviewed and interpreted this ECG (s) as follows: Prior ECG tracings: available for review Interpretation: Sinus rhythm at 94. Left axis with normal intervals. Normal ST segments. HPI General Mode of arrival: ambulatory. Date/Time Provider Initiated Documentation: 02/13/19 12:00. Limitations to Documentation: no limitations. Information obtained by: patient and old records reviewed. HPI Narrative: Patient presents to ED with complaint of chest pain. Patient reports that over the last few days he has noticed increased dyspnea with exertion but not pain. 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 Maybe had some shortness of breath associated with it. Bowers sweaty but not lightheaded or nauseated. Resolved on its own. Again this morning when he woke up he had a little more intense chest pain with diaphoresis and shortness of breath. He took a nitroglycerin and this resolved his symptoms but did give him a headache. He laid back down and went to sleep. When he woke up his told him he needed to come here for evaluation. He has not had recurrent chest pain since taking the nitroglycerin. The pain reminded him of the discomfort he had when he had his [place]. He has a stent in the mid LAD. Related Data Home Medications Medication Instructions Recorded Confirmed clopidogrel 75 mg PO DAILY tab-cap 07/15/17 02/13/19 [employer] Ultra Test #350 strip 08/16/17 02/05/19 lancets #350 ea 08/24/17 02/05/19 pen needle, diabetic #300 03/02/18 02/05/19 metoprolol succinate 100 mg PO DAILY tab-cap 07/19/18 02/13/19 empagliflozin 25 mg tablet 25 mg PO DAILY #90 tab-cap 08/11/18 02/13/19 lisinopril 5 mg tablet 5 mg PO DAILY #90 tab-cap 09/13/18 02/13/19 rosuvastatin 40 mg tablet 40 mg PO DAILY #90 tab-cap 09/13/18 02/13/19 sertraline 100 mg tablet 100 mg PO DAILY #90 tab-cap 09/13/18 02/13/19 gabapentin 100 mg capsule 100 mg PO .QHS PRN #20 cap 10/10/18 02/13/19 Victoza 2-Alfonso 1.8 mg SQ DAILY 10/26/18 02/13/19 triamcinolone acetonide 1 film TOPICAL 2-4 times daily PRN 10/26/18 02/13/19 PRN insulin regular human U-500 40 unit SUBCUT BID #5 ml 11/29/18 02/13/19 concentrate 500 unit/mL(3 mL) subcut pen metformin 1,000 mg tablet 1,000 mg PO BID #180 tab-cap 12/08/18 02/13/19 nitroglycerin 0.4 mg sublingual 0.4 mg SL Q5M PRN #30 tab-cap MDD 01/08/19 02/13/19 tablet 3 doses aspirin 81 mg chewable tablet 81 mg PO DAILY #90 tab-cap 01/18/19 02/13/19 spironolactone 25 mg tablet 12.5 mg PO DAILY #45 tab-cap 02/05/19 02/13/19 Previous Rx's Medication Instructions Recorded OneTouch Ultra Test #350 strip 08/16/17 lancets #350 ea 08/24/17 empagliflozin 25 mg tablet 25 mg PO DAILY #90 tab-cap 08/11/18 lisinopril 5 mg tablet 5 mg PO DAILY #90 tab-cap 09/13/18 rosuvastatin 40 mg tablet 40 mg PO DAILY #90 tab-cap 09/13/18 sertraline 100 mg tablet 100 mg PO DAILY #90 tab-cap 09/13/18 gabapentin 100 mg capsule 100 mg PO .QHS PRN #20 cap 10/10/18 insulin regular human U-500 40 unit SUBCUT BID #5 ml 11/29/18 concentrate 500 unit/mL(3 mL) subcut pen metformin 1,000 mg tablet 1,000 mg PO BID #180 tab-cap 12/08/18 nitroglycerin 0.4 mg sublingual 0.4 mg SL Q5M PRN #30 tab-cap MDD 01/08/19 tablet 3 doses aspirin 81 mg chewable tablet 81 mg PO DAILY #90 tab-cap 01/18/19 spironolactone 25 mg tablet 12.5 mg PO DAILY #45 tab-cap 02/05/19 Allergies Allergy/AdvReac Type Severity Reaction Status Date / Time bee venom protein (honey bee) Allergy Severe Swelling/Ed Verified 02/13/19 12:56 capri Penicillins Allergy Unknown Rash Verified 02/13/19 12:56 shellfish derived Allergy Unknown Rash; Verified 02/13/19 12:56 swelling General Stated Complaint: Chest Pain VAN: 2 Review of Systems Constitutional Denies chills, Denies fever(s), Reports headache(s), Denies poor appetite and Denies weakness Eyes Denies change in vision and Denies eye pain ENT Denies dizziness, Denies otalgia, Denies facial pain, Reports headache(s), Denies nasal congestion, Denies neck pain and Denies sore throat Cardiovascular Reports chest pain, Reports diaphoresis, Denies syncope, Denies pedal edema, Denies lightheadedness, Denies radiating jaw, neck or arm pain and Reports dyspnea on exertion Respiratory Denies chest congestion, Denies cough and Reports dyspnea on exertion Gastrointestinal Denies abdominal pain, Denies diarrhea, Reports nausea and Denies vomiting Genitourinary Denies dysuria and Denies flank pain Musculoskeletal Denies back pain and Denies neck pain Integumentary/Breasts Denies rash Neurologic Denies dizziness, Denies syncope, Reports headache(s), Denies focal weakness, Denies sensory deficit, Denies paresthesias and Denies weakness [facility] Medical History Microalbuminuria (Chronic) Type 2 diabetes mellitus with retinopathy, with long-term current use of insulin (Chronic 10/27/17) Tubular adenoma of colon (Inactive 10/18/14) Sensorineural hearing loss, bilateral (Chronic 11/24/17) Restless leg syndrome (Chronic 10/31/14) Pulmonary hypertension (Chronic 07/14/17) Obstructive sleep apnea, adult (Chronic 10/31/14) Nonproliferative diabetic retinopathy (Chronic) Noncompliance with medication regimen (Chronic 07/06/13) NSTEMI (non-ST elevated myocardial infarction) (Inactive 07/11/17) Morbid obesity (Chronic 07/06/13) Hyperlipidemia (Chronic 07/06/13) Erectile dysfunction (Chronic 07/06/13) Essential hypertension (Chronic 07/06/13) Elevated ferritin level (Chronic 10/20/17) Depression (Chronic 11/25/11) Conductive hearing loss (Chronic 07/06/13) Chronic HFrEF (heart failure with reduced ejection fraction) (Chronic 07/20/18) ASCVD (arteriosclerotic cardiovascular disease) (Chronic 07/28/17) Adult BMI > 30 Hyperuricemia RLS (restless legs syndrome) Surgical History S/P coronary artery stent placement (Inactive) Cholecystectomy (Inactive) Colonoscopy - IV Sedation (Inactive 10/14/14) Social History Smoking/Tobacco Use Status: Never Alcohol Intake: current Alcohol Intake frequency: holidays/special occasions only Drug use: Never Substance use type: does not use Household members: spouse Housing: apartment Number of Children: 1 Communication Needs: None 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 Pets and animals: No Current gender identity: male What type of physical activity do you participate in: other Details: skiing Frequency: other 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 mobile lounge driver or operator: No Do you feel safe at home: Yes Do you feel safe in your relationship?: Yes Exam Const General: cooperative, comfortable and no acute distress Orientation: alert and oriented x3 HENMT Head: normocephalic and atraumatic Mouth: moist mucous membranes Neck Neck: trachea midline and supple Chest Chest: no tenderness Resp Effort & Inspection: normal respiratory effort Auscultation: clear to auscultation bilaterally Cardio Rate: regular rate Rhythm: regular rhythm Heart Sounds: S1 normal and S2 normal Pulses: radial pulses present GI Inspection: normal to inspection and non-distended Palpation: soft and nontender Skin Rashes: no rashes Neuro General: alert, oriented x3, moves all extremities, no focal motor deficits and CN's II-XI intact bilaterally Cognition: normal cognition Speech: speech normal Sensory Exam: no sensory deficits noted Extrem General: normal to inspection, no clubbing, cyanosis or edema, no pedal edema and no calf tenderness Course Vital Signs Temperature 97.7 F 02/13/19 11:58 Pulse 97 H 02/13/19 11:58 Respiratory Rate 18 02/13/19 11:58 Blood Pressure 118/82 02/13/19 11:58 Pulse Oximetry 98 02/13/19 11:58 Temperature 97.7 F 02/13/19 11:58 Temperature Source Tympanic 02/13/19 11:58 Pulse 97 H 02/13/19 11:58 Respiratory Rate 18 02/13/19 11:58 Blood Pressure 118/82 02/13/19 11:58 Blood Pressure Position Supine 02/13/19 11:58 Pulse Oximetry 98 02/13/19 11:58 Oxygen Delivery Method Room Air 02/13/19 11:58 Oxygen Flow Rate 0 02/13/19 11:58 Pain Level 9 02/13/19 11:58
[2019-02-13] MEDS: Aspirin 81 MG CHEW 324 MG CH (12:27)
[2019-02-13 12:40] LABS: Abs Immature Grans 0.04 k/cumm (0.0-0.09); Absolute Basophil Count 0.03 k/cumm (0.0-0.2); Absolute Eosinophil Count 0.18 k/cumm (0.0-0.7); Absolute Lymphocyte Count 1.89 k/cumm (1.2-3.4); Absolute Monocyte Count 0.54 k/cumm (0.11-0.7); Absolute Neutrophil Count 5.45 k/cumm (1.2-6.7); Basophils % 0.4; Eosinophils % 2.2; HCT 42.8 % (40.0-50.0); HGB 15.1 g/dL (13.5-17.5); Immature Grans % 0.5; Lymphocytes % 23.2; Mean Corp. HGB Concentration 35.3 g/dL (32.0-36.0); Mean Corpuscular Hemoglobin 30.6 pg (27.0-33.0); Mean Corpuscular Volume 86.8 fL (80-95); Monocytes % 6.6; Neutrophils % 67.1; Platelet Count 205 x1000/uL (130-400); RBC 4.93 m/cumm (4.50-6.00); RBC Distribution Width 12.5 % (11.8-14.1); White Blood Cell Count 8.13 k/cumm (4.4-10.8)
[2019-02-13 12:59] LABS: ALT 81 U/L (12-78); AST 33 U/L (15-37); Albumin 3.5 g/dL (3.4-5.0); Alkaline Phosphatase 122 U/L (46-116); Anion Gap 10.6 mmol/L (3-11); BUN 19 mg/dL (7-18); Bilirubin, Total 0.5 mg/dL (0.2-1.0); CO2 24.4 mmol/L (21.0-32.0); CREATININE 1.05 mg/dL (0.70-1.30); Calcium 8.7 mg/dL (8.5-10.1); Chloride 99 mmol/L (98-107); Glucose 375 mg/dL (70-100); Magnesium 1.6 mg/dL (1.8-2.4); NT-proBNP 115 pg/mL; Potassium 4.3 mmol/L (3.5-5.1); Sodium 134 mmol/L (136-145); Total Protein 6.7 g/dL (6.4-8.2)
[2019-02-13 13:00] LABS: Troponin I < 0.02 ng/mL (0.00-0.06)
--- NOTE | 2019-02-13 15:11 | NUR.NOTE ---
Offered po liquids/solids x2. Patient declined both times. States he eats one meal a day. Declines water to drinkNursing Note:
[2019-02-13] MEDS: Clopidogrel 75 MG TAB PO (16:11)
[2019-02-13 16:47] LABS: Troponin I < 0.02 ng/mL (0.00-0.06)
[2019-02-13] MEDS: Insulin Aspart 300 UNITS/3 ML PEN SC (17:26)
--- NOTE | 2019-02-13 18:15 | W.PM.HP.N ---
Date of service: 02/13/19 Time of Service: 18:15 Assessment and Plan (1) Chest pain: Current visit: Yes Status: Acute Question of unstable angina. [facility] cardiology consulted by ED: recommends trending troponins, but continuing asa/plavix until then. May need a stress test vs heart cath, depending on troponin results. Monitor on tele. (2) ASCVD (arteriosclerotic cardiovascular disease): Current visit: No Status: Chronic S/p MADONNA to LAD in 06/2017 - continue asa, plavix, BB (finding out which one the patient is actually taking), sofie-i, statin. Check lipid panel. (3) Chronic HFrEF (heart failure with reduced ejection fraction): Current visit: No Status: Chronic EF improved to 50%. Monitor volume status. (4) Type 2 diabetes mellitus with hyperglycemia, with long-term current use of insulin: Current visit: No Status: Chronic I asked the patient's to bring in U 500. For now, will cover with 40 units of regular insulin with meals as well as resistant sliding scale. (5) Obstructive sleep apnea, adult: Current visit: No Status: Chronic Patient uses a mouth guard. Previously intolerant of CPAP. (6) Essential hypertension: Current visit: No Status: Chronic Clarifying medications. (7) Hyperlipidemia: Current visit: No Status: Chronic Checking fasting lipid panel Qualifiers: Hyperlipidemia type: unspecified Qualified Code(s): E78.5 - Hyperlipidemia, unspecified (8) DVT prophylaxis: Current visit: Yes Status: Acute Heparin SQ (9) Discharge planning issues: Current visit: Yes Status: Acute Full code. May require transfer to [facility] if cardiac cath is indicated. History of Present Illness Chief Complaint: Chest pain this morning Narrative: Mr Tang is a 53 year old male with PMHx of CAD s/p NSTEMI/MADONNA to LAD at [facility] in 06/2017, chronic systolic CHF/ICMO with EF of 50% in 11/06, poorly controlled IDDM2 with microalbuminuria, hypertension, hyperlipidemia, medical noncompliance, who presented to [facility] ED this morning reporting 2 episodes of chest pain that concerned his , who made him come to the hospital. 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 It happened around noon while he was working. It was dull, L-sided, accompanied by dizziness, nausea, and sweating. His blood sugar at the time was 171. He also noticed he got unusually short of breath walking up a hill. The pain lasted 1 hour. He did not take nitroglycerin with this pain. Today, the same pain woke him up from sleep at 5 am. It didn't go away until he took his nitroglycerin at 5:30. It did completely relieve the pain, but his insisted that he come to the hospital. The pain does remind him of the pain he had when he had the NSTEMI. He states he takes his medications as prescribed. Of note, the patient has a medication list on him that does not match either the medication list we have in our system or the one at [facility]. We are obtaining his medication list from [employer]. Review of Systems Review of Systems 12 systems reviewed. Pertinent positives and negatives are as per HPI. [facility] Medical History Microalbuminuria (Chronic) Type 2 diabetes mellitus with retinopathy, with long-term current use of insulin (Chronic 10/27/17) Tubular adenoma of colon (Inactive 10/18/14) Sensorineural hearing loss, bilateral (Chronic 11/24/17) Restless leg syndrome (Chronic 10/31/14) Pulmonary hypertension (Chronic 07/14/17) Obstructive sleep apnea, adult (Chronic 10/31/14) Nonproliferative diabetic retinopathy (Chronic) Noncompliance with medication regimen (Chronic 07/06/13) NSTEMI (non-ST elevated myocardial infarction) (Inactive 07/11/17) Morbid obesity (Chronic 07/06/13) Hyperlipidemia (Chronic 07/06/13) Erectile dysfunction (Chronic 07/06/13) Essential hypertension (Chronic 07/06/13) Elevated ferritin level (Chronic 10/20/17) Depression (Chronic 11/25/11) Conductive hearing loss (Chronic 07/06/13) Chronic HFrEF (heart failure with reduced ejection fraction) (Chronic 07/20/18) ASCVD (arteriosclerotic cardiovascular disease) (Chronic 07/28/17) Adult BMI > 30 Hyperuricemia RLS (restless legs syndrome) Surgical History S/P coronary artery stent placement (Inactive) Cholecystectomy (Inactive) Colonoscopy - IV Sedation (Inactive 10/14/14) Social History Smoking/Tobacco Use Status: Never Alcohol Intake: current Alcohol Intake frequency: holidays/special occasions only Drug use: Never Substance use type: does not use Household members: spouse Housing: apartment Number of Children: 1 Communication Needs: None 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 Pets and animals: No Current gender identity: male What type of physical activity do you participate in: other Details: skiing Frequency: other 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 cdl driver: No Do you feel safe at home: Yes Do you feel safe in your relationship?: Yes Meds Home Medications Medication Instructions Recorded Confirmed Type clopidogrel 75 mg PO DAILY tab-cap 07/15/17 02/13/19 History OneTouch Ultra Test #350 strip 08/16/17 02/05/19 Rx lancets #350 ea 08/24/17 02/05/19 Rx pen needle, diabetic #300 03/02/18 02/05/19 History lisinopril 5 mg tablet 5 mg PO DAILY #90 tab-cap 09/13/18 02/13/19 Rx sertraline 100 mg tablet 100 mg PO DAILY #90 tab-cap 09/13/18 02/13/19 Rx metformin 1,000 mg tablet 1,000 mg PO BID #180 tab-cap 12/08/18 02/13/19 Rx nitroglycerin 0.4 mg sublingual 0.4 mg SL Q5M PRN #30 tab-cap MDD 01/08/19 02/13/19 Rx tablet 3 doses aspirin 81 mg chewable tablet 81 mg PO DAILY #90 tab-cap 01/18/19 02/13/19 Rx spironolactone 25 mg tablet 12.5 mg PO DAILY #45 tab-cap 02/05/19 02/13/19 Rx carvedilol 12.5 mg PO BID 02/13/19 02/13/19 History insulin regular hum U-500 conc 40 unit SUBCUT AC 02/13/19 02/13/19 History [Humulin R U-500 (Conc) Kwikpen] rosuvastatin [Crestor] 40 mg PO HS 02/13/19 02/13/19 History Allergies Allergy/AdvReac Type Severity Reaction Status Date / Time bee venom protein (honey bee) Allergy Severe Swelling/Ed Verified 02/13/19 12:56 capri Penicillins Allergy Unknown Rash Verified 02/13/19 12:56 shellfish derived Allergy Unknown Rash; Verified 02/13/19 12:56 swelling Exam Narrative Exam Narrative: General: Very pleasant obese male, eating dinner in his bed, not in acute distress Neurological: A&Ox3, no focal deficits Psychiatric: appropriate speech pattern/content Skin: intact HEENT: Atraumatic, normocephalic, EOMI, MMM, no submandibular or cervical lymphadenopathy, no goiter or JVD Cardiovascular: RRR, no m/r/g Lungs: CTAB Gastrointestinal: abdomen is soft, nontender, nondistended Extremities: no e/c/c BLE's, 1+ pedal pulses B. Results Imaging Additional studies: CXR: No evidence of acute disease. EKG: SR, HR 93, L anterior fasciular block, no acute ischemia Labs : 02/13/19 12:05 02/13/19 12:05 Laboratory Results - last 24 hr 02/13/19 02/13/19 02/13/19 12:05 12:05 16:23 WBC 8.13 RBC 4.93 Hgb 15.1 Hct 42.8 MCV 86.8 MCH 30.6 MCHC 35.3 RDW 12.5 Plt Count 205 MPV 10.0 Immature Gran % 0.5 Neutrophils % 67.1 Lymphocytes % 23.2 Monocytes % 6.6 Eosinophils % 2.2 Basophils % 0.4 Absolute Neutrophils 5.45 Absolute Lymphocytes 1.89 Absolute Monocytes 0.54 Absolute Eosinophils 0.18 Absolute Basophils 0.03 Sodium 134 L Potassium 4.3 Chloride 99 Carbon Dioxide 24.4 Anion Gap 10.6 BUN 19 H Creatinine 1.05 Estimated GFR/1.73 m2 >= 60.00 Glucose 375 H Calcium 8.7 Magnesium 1.6 L Total Bilirubin 0.5 AST 33 ALT 81 H Alkaline Phosphatase 122 H Troponin I < 0.02 < 0.02 NT-Pro-B Natriuret Pep 115 Total Protein 6.7 Albumin 3.5 Last Vital Signs Temp 36.5 C 02/13/19 15:10 Pulse 93 H 02/13/19 15:10 Resp 21 02/13/19 16:00 BP 116/84 02/13/19 15:10 Pulse Ox 95 02/13/19 16:00
--- NOTE | 2019-02-13 18:20 | HPE_ITS ---
Date of service: 02/13/19 Time of Service: 18:15 Assessment and Plan (1) Chest pain: Current visit: Yes Status: Acute Question of unstable angina. [facility] cardiology consulted by ED: recommends trending troponins, but continuing asa/plavix until then. May need a stress test vs heart cath, depending on troponin results. Monitor on tele. (2) ASCVD (arteriosclerotic cardiovascular disease): Current visit: No Status: Chronic S/p MADONNA to LAD in 06/2017 - continue asa, plavix, BB (finding out which one the patient is actually taking), sofie-i, statin. Check lipid panel. (3) Chronic HFrEF (heart failure with reduced ejection fraction): Current visit: No Status: Chronic EF improved to 50%. Monitor volume status. (4) Type 2 diabetes mellitus with hyperglycemia, with long-term current use of insulin: Current visit: No Status: Chronic I asked the patient's to bring in U 500. For now, will cover with 40 units of regular insulin with meals as well as resistant sliding scale. (5) Obstructive sleep apnea, adult: Current visit: No Status: Chronic Patient uses a mouth guard. Previously intolerant of CPAP. (6) Essential hypertension: Current visit: No Status: Chronic Clarifying medications. (7) Hyperlipidemia: Current visit: No Status: Chronic Checking fasting lipid panel Qualifiers: Hyperlipidemia type: unspecified Qualified Code(s): E78.5 - Hyperlipidemia, unspecified (8) DVT prophylaxis: Current visit: Yes Status: Acute Heparin SQ (9) Discharge planning issues: Current visit: Yes Status: Acute Full code. May require transfer to [facility] if cardiac cath is indicated. History of Present Illness Chief Complaint: Chest pain this morning Narrative: Mr Tang is a 53 year old male with PMHx of CAD s/p NSTEMI/MADONNA to LAD at [facility] in 06/2017, chronic systolic CHF/ICMO with EF of 50% in 11/06, poorly controlled IDDM2 with microalbuminuria, hypertension, hyperlipidemia, medical noncompliance, who presented to [facility] ED this morning reporting 2 episodes of chest pain that concerned his , who made him come to the hospital. 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 It happened around noon while he was working. It was dull, L-sided, accompanied by dizziness, nausea, and sweating. His blood sugar at the time was 171. He also noticed he got unusually short of breath walking up a hill. The pain lasted 1 hour. He did not take nitroglycerin with this pain. Today, the same pain woke him up from sleep at 5 am. It didn't go away until he took his nitroglycerin at 5:30. It did completely relieve the pain, but his insisted that he come to the hospital. The pain does remind him of the pain he had when he had the NSTEMI. He states he takes his medications as prescribed. Of note, the patient has a medication list on him that does not match either the medication list we have in our system or the one at [facility]. We are obtaining his medication list from [employer]. Review of Systems Review of Systems 12 systems reviewed. Pertinent positives and negatives are as per HPI. [facility] Medical History Microalbuminuria (Chronic) Type 2 diabetes mellitus with retinopathy, with long-term current use of insulin (Chronic 10/27/17) Tubular adenoma of colon (Inactive 10/18/14) Sensorineural hearing loss, bilateral (Chronic 11/24/17) Restless leg syndrome (Chronic 10/31/14) Pulmonary hypertension (Chronic 07/14/17) Obstructive sleep apnea, adult (Chronic 10/31/14) Nonproliferative diabetic retinopathy (Chronic) Noncompliance with medication regimen (Chronic 07/06/13) NSTEMI (non-ST elevated myocardial infarction) (Inactive 07/11/17) Morbid obesity (Chronic 07/06/13) Hyperlipidemia (Chronic 07/06/13) Erectile dysfunction (Chronic 07/06/13) Essential hypertension (Chronic 07/06/13) Elevated ferritin level (Chronic 10/20/17) Depression (Chronic 11/25/11) Conductive hearing loss (Chronic 07/06/13) Chronic HFrEF (heart failure with reduced ejection fraction) (Chronic 07/20/18) ASCVD (arteriosclerotic cardiovascular disease) (Chronic 07/28/17) Adult BMI > 30 Hyperuricemia RLS (restless legs syndrome) Surgical History S/P coronary artery stent placement (Inactive) Cholecystectomy (Inactive) Colonoscopy - IV Sedation (Inactive 10/14/14) Social History Smoking/Tobacco Use Status: Never Alcohol Intake: current Alcohol Intake frequency: holidays/special occasions only Drug use: Never Substance use type: does not use Household members: spouse Housing: apartment Number of Children: 1 Communication Needs: None 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 Pets and animals: No Current gender identity: male What type of physical activity do you participate in: other Details: skiing Frequency: other 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: No Do you feel safe at home: Yes Do you feel safe in your relationship?: Yes Meds Home Medications Medication Instructions Recorded Confirmed Type clopidogrel 75 mg PO DAILY tab-cap 07/15/17 02/13/19 History OneTouch Ultra Test #350 strip 08/16/17 02/05/19 Rx lancets #350 ea 08/24/17 02/05/19 Rx pen needle, diabetic #300 03/02/18 02/05/19 History lisinopril 5 mg tablet 5 mg PO DAILY #90 tab-cap 09/13/18 02/13/19 Rx sertraline 100 mg tablet 100 mg PO DAILY #90 tab-cap 09/13/18 02/13/19 Rx metformin 1,000 mg tablet 1,000 mg PO BID #180 tab-cap 12/08/18 02/13/19 Rx nitroglycerin 0.4 mg sublingual 0.4 mg SL Q5M PRN #30 tab-cap MDD 01/08/19 02/13/19 Rx tablet 3 doses aspirin 81 mg chewable tablet 81 mg PO DAILY #90 tab-cap 01/18/19 02/13/19 Rx spironolactone 25 mg tablet 12.5 mg PO DAILY #45 tab-cap 02/05/19 02/13/19 Rx carvedilol 12.5 mg PO BID 02/13/19 02/13/19 History insulin regular hum U-500 conc 40 unit SUBCUT AC 02/13/19 02/13/19 History [Humulin R U-500 (Conc) Kwikpen] rosuvastatin [Crestor] 40 mg PO HS 02/13/19 02/13/19 History Allergies Allergy/AdvReac Type Severity Reaction Status Date / Time bee venom protein (honey bee) Allergy Severe Swelling/Ed Verified 02/13/19 12:56 capri Penicillins Allergy Unknown Rash Verified 02/13/19 12:56 shellfish derived Allergy Unknown Rash; Verified 02/13/19 12:56 swelling Exam Narrative Exam Narrative: General: Very pleasant obese male, eating dinner in his bed, not in acute distress Neurological: A&Ox3, no focal deficits Psychiatric: appropriate speech pattern/content Skin: intact HEENT: Atraumatic, normocephalic, EOMI, MMM, no submandibular or cervical lymph adenopathy, no goiter or JVD Cardiovascular: RRR, no m/r/g Lungs: CTAB Gastrointestinal: abdomen is soft, nontender, nondistended Extremities: no e/c/c BLE's, 1+ pedal pulses B. Results Imaging Additional studies: CXR: No evidence of acute disease. EKG: SR, HR 93, L anterior fasciular block, no acute ischemia Labs : 02/13/19 12:05 02/13/19 12:05 Laboratory Results - last 24 hr 02/13/19 02/13/19 02/13/19 12:05 12:05 16:23 WBC 8.13 RBC 4.93 Hgb 15.1 Hct 42.8 MCV 86.8 MCH 30.6 MCHC 35.3 RDW 12.5 Plt Count 205 MPV 10.0 Immature Gran % 0.5 Neutrophils % 67.1 Lymphocytes % 23.2 Monocytes % 6.6 Eosinophils % 2.2 Basophils % 0.4 Absolute Neutrophils 5.45 Absolute Lymphocytes 1.89 Absolute Monocytes 0.54 Absolute Eosinophils 0.18 Absolute Basophils 0.03 Sodium 134 L Potassium 4.3 Chloride 99 Carbon Dioxide 24.4 Anion Gap 10.6 BUN 19 H Creatinine 1.05 Estimated GFR/1.73 m2 >= 60.00 Glucose 375 H Calcium 8.7 Magnesium 1.6 L Total Bilirubin 0.5 AST 33 ALT 81 H Alkaline Phosphatase 122 H Troponin I < 0.02 < 0.02 NT-Pro-B Natriuret Pep 115 Total Protein 6.7 Albumin 3.5 Last Vital Signs Temp 36.5 C 02/13/19 15:10 Pulse 93 H 02/13/19 15:10 Resp 21 02/13/19 16:00 BP 116/84 03/26/19 15:10 Pulse Ox 95 02/13/19 16:00
[2019-02-13 19:20] LABS: Troponin I < 0.02 ng/mL (0.00-0.06)
[2019-02-13] MEDS: Carvedilol 6.25 MG TAB 12.5 MG PO (19:28)
[2019-02-13] MEDS: Insulin REGULAR-Human 100 UNITS/ML UNIT 40 UNITS SC (19:28)
[2019-02-13] MEDS: Rosuvastatin 10 MG TAB 40 MG PO (21:44)
[2019-02-14] VITALS (7 sets, daily range): BP systolic 106–124; BP diastolic 65–86; PULSE 72–87; RESP 14–20; TEMP 35.6–36.5; O2SAT 95–97
[2019-02-14 00:38] LABS: Troponin I 0.02 ng/mL (0.00-0.06)
[2019-02-14 07:05] LABS: HCT 43.8 % (40.0-50.0); HGB 15.2 g/dL (13.5-17.5); Mean Corp. HGB Concentration 34.7 g/dL (32.0-36.0); Mean Corpuscular Hemoglobin 30.2 pg (27.0-33.0); Mean Corpuscular Volume 87.1 fL (80-95); Mean Platelet Volume 9.7 fL (8.0-11.0); Platelet Count 214 x1000/uL (130-400); RBC 5.03 m/cumm (4.50-6.00); RBC Distribution Width 12.6 % (11.8-14.1); White Blood Cell Count 7.25 k/cumm (4.4-10.8)
[2019-02-14 07:43] LABS: Anion Gap 10.1 mmol/L (3-11); BUN 21 mg/dL (7-18); CO2 24.9 mmol/L (21.0-32.0); CREATININE 0.77 mg/dL (0.70-1.30); Calcium 8.9 mg/dL (8.5-10.1); Chloride 103 mmol/L (98-107); Glucose 150 mg/dL (70-100); Magnesium 1.8 mg/dL (1.8-2.4); Potassium 4.6 mmol/L (3.5-5.1); Sodium 138 mmol/L (136-145)
[2019-02-14] MEDS: Spironolactone 25 MG TAB 12.5 MG PO (07:43)
[2019-02-14] MEDS: Lisinopril 5 MG TAB PO (07:44)
[2019-02-14] MEDS: Insulin Aspart 300 UNITS/3 ML PEN SC ×2 (07:45→11:52)
[2019-02-14] MEDS: Clopidogrel 75 MG TAB PO (07:45)
[2019-02-14] MEDS: Sertraline 50 MG TAB 100 MG PO (07:45)
[2019-02-14] MEDS: Aspirin 81 MG CHEW PO (07:45)
[2019-02-14] MEDS: Carvedilol 6.25 MG TAB 12.5 MG PO ×2 (07:45→20:20)
--- NOTE | 2019-02-14 07:57 | PDOC.CMIN ---
- If Service Date Differs Date of service: 02/14/19 Time of Service: 07:57 Care Management Initial Assess REASON FOR HOSPITALIZATION:: Chest Pain PAST MEDICAL HISTORY/PAST SURGICAL HISTORY:: Microalbuminuria (Chronic). Type 2 diabetes mellitus with retinopathy, with long-term current use of insulin (Chronic 10/27/17). Tubular adenoma of colon (Inactive 10/18/14). Sensorineural hearing loss, bilateral (Chronic 11/24/17). Restless leg syndrome (Chronic 10/31/14). Pulmonary hypertension (Chronic 07/14/17). Obstructive sleep apnea, adult (Chronic 10/31/14). Nonproliferative diabetic retinopathy (Chronic). Noncompliance with medication regimen (Chronic 07/06/13). NSTEMI (non-ST elevated myocardial infarction) (Inactive 07/11/17). Morbid obesity (Chronic 07/06/13). Hyperlipidemia (Chronic 07/06/13). Erectile dysfunction (Chronic 07/06/13). Essential hypertension (Chronic 07/06/13). Elevated ferritin level (Chronic 10/20/17). Depression (Chronic 11/25/11). Conductive hearing loss (Chronic 07/06/13). Chronic HFrEF (heart failure with reduced ejection fraction) (Chronic 07/20/18). ASCVD (arteriosclerotic cardiovascular disease) (Chronic 07/28/17). Adult BMI > 30. Hyperuricemia. RLS (restless legs syndrome). S/P coronary artery stent placement (Inactive). Cholecystectomy (Inactive). Colonoscopy - IV Sedation (Inactive 10/14/14) PREVIOUS FUNCTIONAL STATUS/SOCIAL/FAMILY SUPPORTS:: Ganesh resides with his Nancy in [facility]. He states that he has a daughter whom does not reside locally though is supportive. 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 At baseline he is independent, drives, and manages ADL's CURRENT FUNCTIONAL STATUS:: Currently Edward is lying in bed when this automotive service writer visits. His Nancy is also in the room, both are pleasant and receptive to discussion. ADVANCE DIRECTIVES:: On file - Candy Tang is agent, Nancy Huston is alternate Has patient been provided with information about the portal?: Yes Did the patient sign up for the portal?: No CODE STATUS:: Full Code INSURANCE COVERAGE / FINANCIAL ISSUES:: Medicare, Financial Asst 100 CURRENT HOME/COMMUNITY SERVICES/EQUIPMENT:: Currently Ganesh has no services in the community. There are two FWW's in the home PRIMARY CARE PHYSICIAN:: Camilla Shreman POTENTIAL DISCHARGE NEEDS:: F/U appointment with PCP. Home Health - RN services for med management PATIENT/FAMILY EDUCATION NEEDS:: Review DC instructions, any limitations, and ongoing DC planning discussion. Discuss 'Ask Me Three' ANTICIPATED BARRIERS TO DISCHARGE:: None identified at this time. TRANSPORTATION:: To transport self home. PLAN:: Ganesh will return home with new home health RN services. He will F/U with PCP and plan of care as prescribed. Edward's car is at [facility] and he will transport himself home.
--- NOTE | 2019-02-14 08:06 | INITIAL_ITS ---
- If Service Date Differs Date of service: 02/14/19 Time of Service: 07:57 Care Management Initial Assess REASON FOR HOSPITALIZATION:: Chest Pain PAST MEDICAL HISTORY/PAST SURGICAL HISTORY:: Microalbuminuria (Chronic). Type 2 diabetes mellitus with retinopathy, with long-term current use of insulin (Chronic 10/27/17). Tubular adenoma of colon (Inactive 10/18/14). Sensorineural hearing loss, bilateral (Chronic 11/24/17). Restless leg syndrome (Chronic 10/31/14). Pulmonary hypertension (Chronic 07/14/17). Obstructive sleep apnea, adult (Chronic 10/31/14). Nonproliferative diabetic retinopathy (Chronic). Noncompliance with medication regimen (Chronic 07/06/13). NSTEMI (non-ST elevated myocardial infarction) (Inactive 07/11/17). Morbid obesity (Chronic 07/06/13). Hyperlipidemia (Chronic 07/06/13). Erectile dysfunction (Chronic 07/06/13). Essential hypertension (Chronic 07/06/13). Elevated ferritin level (Chronic 10/20/17). Depression (Chronic 11/25/11). Conductive hearing loss (Chronic 07/06/13). Chronic HFrEF (heart failure with reduced ejection fraction) (Chronic 07/20/18). ASCVD (arteriosclerotic cardiovascular disease) (Chronic 07/28/17). Adult BMI > 30. Hyperuricemia. RLS (restless legs syndrome). S/P coronary artery stent placement (Inactive). Cholecystectomy (Inactive). Colonoscopy - IV Sedation (Inactive 10/14/14) PREVIOUS FUNCTIONAL STATUS/SOCIAL/FAMILY SUPPORTS:: Ganesh resides with his Nancy in [facility]. He states that he has a daughter whom does not reside locally though is supportive. 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 At baseline he is independent, drives, and manages ADL's CURRENT FUNCTIONAL STATUS:: Currently Edward is lying in bed when this insurance underwriter visits. His Nancy is also in the room, both are pleasant and receptive to discussion. ADVANCE DIRECTIVES:: On file - Candy Tang is agent, Nancy Huston is alternate Has patient been provided with information about the portal?: Yes Did the patient sign up for the portal?: No CODE STATUS:: Full Code INSURANCE COVERAGE / FINANCIAL ISSUES:: Medicare, Financial Asst 100 CURRENT HOME/COMMUNITY SERVICES/EQUIPMENT:: Currently Ganesh has no services in the community. There are two FWW's in the home PRIMARY CARE PHYSICIAN:: Camilla Shemran POTENTIAL DISCHARGE NEEDS:: F/U appointment with PCP. Home Health - RN services for med management PATIENT/FAMILY EDUCATION NEEDS:: Review DC instructions, any limitations, and ongoing DC planning discussion. Discuss 'Ask Me Three' ANTICIPATED BARRIERS TO DISCHARGE:: None identified at this time. TRANSPORTATION:: To transport self home. PLAN:: Ganesh will return home with new home health RN services. He will F/U with PCP and plan of care as prescribed. Edward's car is at [facility] and he will transport himself home.
[2019-02-14] MEDS: Normal Saline Flush 10 ML SYR IVP ×2 (10:05→18:17)
[2019-02-14 11:36] LABS: Cholesterol 112 mg/dL (50-200); HDL Cholesterol 35 mg/dL (40-60); LDL CHOLESTEROL 50 mg/dL (<100); Triglyceride 182 mg/dL (30-150)
--- NOTE | 2019-02-14 11:58 | CHAPLAIN ---
I had a short visit with Ganesh, introduced myself and offered support. According to our [employer], Ganesh is part of the [employer], but he said he is no longer attending there. He was not interested in further conversation.
--- NOTE | 2019-02-14 12:09 | PHARADMIT ---
Admission Pharmacy Clinical Review CHEST PAIN, ? UNSTABLE ANGINA Code Status Full Code Current Weight Wgt- 114.2 kg Renally Cleared and Narrow Therapeutic Index Meds CrCl~ 111mL/min Meds-OK QTc Value / Action Taken QTc-425 NA BP Control, Fever BP- 106/73 Tmax- 36.5C Electrolytes reviewed Na- 138 K+4.6 Mag-1.8 DVT Prophylaxis Lovenox 40mg, Plavix Opiate Usage / Scheduled Bowel Regimen Ordered No Yes Plt/SCr for Heparin / Enoxaparin Plts-214 SCr-0.77 INR for Warfarin NA H/H stable, WBC/Bands H&H- 15.2/43.8 WBC- 7.25 Antibiotic appropriateness none Cultures and Sensitivities none Surgical ABX d/c within 24 hr NA DM control / Insulin Dosing BG-150 Aspart PatOwn U-500 reg Ins Heart Failure (Check EF%) (YVETTE's, B-Block, Diuretics) Coreg, Lisinopril, NTG, Spironolactone IV to PO Switch No Home Meds Reviewed Yes Home Meds Not Ordered Victoza, Metformin, Tresiba, TAC crm, Comments
--- NOTE | 2019-02-14 12:49 | CCONE_ITS ---
Date of service: 02/14/19 Assessment and Plan (1) Chest pain: Current visit: Yes Status: Acute Atypical angina. Ruled out for [place]. Need to consider esophageal and vasospasm. Currently chest pain-free. Normotensive. No evidence of overt heart failure. Electrically stable. Continue all cardiac medications at current dosage including dual antiplatelet therapy. Pending upon the frequency of nitro one can consider adding IMDUR. Obtain exercise treadmill nuclear rest stress test. If high risk stress test transfer for cardiac catheterization. Patient discussed with the daytime hospitalist Dr. Sejal Yoon. Follow-up with outpatient cardiology at [facility] as scheduled (February 2019) Qualifiers: Chest pain type: other chest pain Qualified Code(s): R07.89 - Other chest pain; R07.8 - Other chest pain History of Present Illness Chief Complaint: Chest pain Narrative: 53-year-old and with obesity, sleep apnea, hypertension, hyperlipidemia, insulin-dependent diabetes mellitus and ischemic cardia myopathy. June 2017 non-STEMI; LAD PCI. LVEF of 30-35%, improved to 50% by October 2017. October 2018 at typical, positional chest pain; negative exercise treadmill stress test, low risk De Jesus treadmill score. Yesterday and the day before yesterday 2 episodes of nonexertional chest pain. First episode improved after he drank some water. Second episode resolved with nitro. No recurrent chest pain since yesterday. No ischemic EKG changes. Negative serial troponins. No tachycardia or bradycardia arrhythmias on telemetry. Denies shortness of breath, edema, palpitations, syncope, claudication, focal deficits, bleeding, GI or symptoms. ROS: 10 point ROS was performed; all pertinent positives as mentioned in HPI, all others negative. Allergies reviewed. Medications reviewed. Cardiac medications include. Aspirin 81 mg daily clopidogrel 75 mill grams daily carvedilol 12.5 mg twice daily lisinopril 5 mg daily Spironolactone 12.5 mg daily Rosuvastatin 40 mg nightly PFSH reviewed; pertinent history mentioned as mentioned HPI. Social history: Non-smoker. No alcohol. Family history: No premature coronary artery disease PHYSICAL EXAM General: pleasant, no acute distress HEENT: Anicteric, mucus membranes moist Neck: Supple, normal JVP, brisk carotid upstrokes, no bruits Chest: Non-tender Lungs: Clear to auscultation bilaterally, no crackles or wheezes Cardiac: Regular rate, regular rhythm, normal S1S2, no murmurs Abdomen: Soft, non-tender, bowel sounds present Extremities: No clubbing, cyanosis or edema, equal pulses in all 4 extremities Skin: Warm and dry, no rashes Neuro: Alert and oriented x3, grossly intact DATA: Available records including laboratory and cardiac studies reviewed; pertinent findings mentioned above. Consults Consult date: 02/14/19 Requesting physician: Ivory Yoon [facility] Medical History Microalbuminuria (Chronic) Type 2 diabetes mellitus with retinopathy, with long-term current use of insulin (Chronic 10/27/17) Tubular adenoma of colon (Inactive 10/18/14) Sensorineural hearing loss, bilateral (Chronic 11/24/17) Restless leg syndrome (Chronic 10/31/14) Pulmonary hypertension (Chronic 07/14/17) Obstructive sleep apnea, adult (Chronic 10/31/14) Nonproliferative diabetic retinopathy (Chronic) Noncompliance with medication regimen (Chronic 07/06/13) NSTEMI (non-ST elevated myocardial infarction) (Inactive 07/11/17) Morbid obesity (Chronic 07/06/13) Hyperlipidemia (Chronic 07/06/13) Erectile dysfunction (Chronic 07/06/13) Essential hypertension (Chronic 07/06/13) Elevated ferritin level (Chronic 10/20/17) Depression (Chronic 11/25/11) Conductive hearing loss (Chronic 07/06/13) Chronic HFrEF (heart failure with reduced ejection fraction) (Chronic 07/20/18) ASCVD (arteriosclerotic cardiovascular disease) (Chronic 07/28/17) Adult BMI > 30 Hyperuricemia RLS (restless legs syndrome) Surgical History S/P coronary artery stent placement (Inactive) Cholecystectomy (Inactive) Colonoscopy - IV Sedation (Inactive 10/14/14) Social History Smoking/Tobacco Use Status: Never Alcohol Intake: current Alcohol Intake frequency: holidays/special occasions only Drug use: Never Substance use type: does not use Household members: spouse Housing: apartment Number of Children: 1 Communication Needs: None 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 Pets and animals: No Current gender identity: male What type of physical activity do you participate in: other Details: skiing Frequency: other 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: No Do you feel safe at home: Yes Do you feel safe in your relationship?: Yes Results Last Vital Signs Temp 36.4 C L 02/14/19 11:02 Pulse 82 02/14/19 11:02 Resp 20 02/14/19 11:02 BP 106/73 02/14/19 11:02 Pulse Ox 96 02/14/19 11:02 Labs : 02/14/19 06:40 02/14/19 06:40 Laboratory Results - last 24 hr 02/13/19 02/13/19 02/13/19 12:05 12:05 16:23 WBC 8.13 RBC 4.93 Hgb 15.1 Hct 42.8 MCV 86.8 MCH 30.6 MCHC 35.3 RDW 12.5 Plt Count 205 MPV 10.0 Immature Gran % 0.5 Neutrophils % 67.1 Lymphocytes % 23.2 Monocytes % 6.6 Eosinophils % 2.2 Basophils % 0.4 Absolute Neutrophils 5.45 Absolute Lymphocytes 1.89 Absolute Monocytes 0.54 Absolute Eosinophils 0.18 Absolute Basophils 0.03 Sodium 134 L Potassium 4.3 Chloride 99 Carbon Dioxide 24.4 Anion Gap 10.6 BUN 19 H Creatinine 1.05 Estimated GFR/1.73 m2 >= 60.00 Glucose 375 H Calcium 8.7 Magnesium 1.6 L Total Bilirubin 0.5 AST 33 ALT 81 H Alkaline Phosphatase 122 H Troponin I < 0.02 < 0.02 NT-Pro-B Natriuret Pep 115 Total Protein 6.7 Albumin 3.5 Triglycerides Total Cholesterol LDL Cholesterol Direct HDL Cholesterol 02/13/19 02/14/19 02/14/19 18:35 00:15 06:40 WBC RBC Hgb Hct MCV MCH MCHC RDW Plt Count MPV Immature Gran % Neutrophils % Lymphocytes % Monocytes % Eosinophils % Basophils % Absolute Neutrophils Absolute Lymphocytes Absolute Monocytes Absolute Eosinophils Absolute Basophils Sodium 138 Potassium 4.6 Chloride 103 Carbon Dioxide 24.9 Anion Gap 10.1 BUN 21 H Creatinine 0.77 Estimated GFR/1.73 m2 >= 60.00 Glucose 150 H D Calcium 8.9 Magnesium 1.8 Total Bilirubin AST ALT Alkaline Phosphatase Troponin I < 0.02 0.02 NT-Pro-B Natriuret Pep Total Protein Albumin Triglycerides 182 H Total Cholesterol 112 LDL Cholesterol Direct 50 HDL Cholesterol 35 L 02/14/19 06:40 WBC 7.25 RBC 5.03 Hgb 15.2 Hct 43.8 MCV 87.1 MCH 30.2 MCHC 34.7 RDW 12.6 Plt Count 214 MPV 9.7 Immature Gran % Neutrophils % Lymphocytes % Monocytes % Eosinophils % Basophils % Absolute Neutrophils Absolute Lymphocytes Absolute Monocytes Absolute Eosinophils Absolute Basophils Sodium Potassium Chloride Carbon Dioxide Anion Gap BUN Creatinine Estimated GFR/1.73 m2 Glucose Calcium Magnesium Total Bilirubin AST ALT Alkaline Phosphatase Troponin I NT-Pro-B Natriuret Pep Total Protein Albumin Triglycerides Total Cholesterol LDL Cholesterol Direct HDL Cholesterol
[2019-02-14] MEDS: Acetaminophen 325 MG TAB PO (16:18)
[2019-02-14] MEDS: Enoxaparin 40 MG/0.4 ML SYR SC (18:16)
--- NOTE | 2019-02-14 19:29 | W.PM.PROGNOT ---
Date of Service Date of service: 02/14/19 Time of Service: 14:30 Assessment and Plan (1) Chest pain: Current visit: Yes Status: Acute Will need stress test. Qualifiers: Chest pain type: other chest pain Ischemic chest pain type: Qualified Code(s): R07.89 - Other chest pain; R07.8 - Other chest pain (2) ASCVD (arteriosclerotic cardiovascular disease): Current visit: No Status: Chronic S/p MADONNA to LAD in 06/2017 - continue asa, plavix, BB (finding out which one the patient is actually taking), sofie-i, statin. Lipids at goal. (3) Chronic HFrEF (heart failure with reduced ejection fraction): Current visit: No Status: Chronic EF improved to 50%. Monitor volume status. (4) Type 2 diabetes mellitus with hyperglycemia, with long-term current use of insulin: Current visit: No Status: Chronic Continue U500 + SSI (5) Obstructive sleep apnea, adult: Current visit: No Status: Chronic Patient uses a mouth guard. Previously intolerant of CPAP. (6) Essential hypertension: Current visit: No Status: Chronic patient was actually taking toprol XL as outpatient (at least, he has a full bottle of it, it's not clear he was actually taking it). We will stop coreg and transition to toprol xl. (7) Hyperlipidemia: Current visit: No Status: Chronic lipids at goal Qualifiers: Hyperlipidemia type: unspecified Qualified Code(s): E78.5 - Hyperlipidemia, unspecified (8) DVT prophylaxis: Current visit: Yes Status: Acute Heparin SQ (9) Discharge planning issues: Current visit: Yes Status: Acute Full code. Needs a stress test prior to discharge Subjective Interval history since last seen: The patient states he hadn't had any chest pain today. Denies dizziness, shortness of breath, nausea, vomiting. Recommended by cardiology to undergo a stress test. The patient insists that he takes all his medications while, in fact, I have reviewed patient's physical medications with pharmacy - most of them are in full bottles filled almost 3 months ago, indicating that he wasn't taking them. Exam Narrative Exam Narrative: General: Very pleasant obese male, in bed, comfortable HEENT: Atraumatic, normocephalic, EOMI, MMM, no submandibular or cervical lymphadenopathy, no goiter or JVD Cardiovascular: RRR, no m/r/g Lungs: CTAB Gastrointestinal: abdomen is soft, nontender, nondistended Extremities: no e/c/c BLE's, 1+ pedal pulses B. Objective Objective Clinical Data: Abnormal lab results 02/14/19 Range/Units 06:40 BUN 21 H (7-18) mg/dL Glucose 150 H D (70-100) mg/dL Triglycerides 182 H (30-150) mg/dL HDL Cholesterol 35 L (40-60) mg/dL Vital Signs Temperature 36.5 C 02/14/19 16:13 Temperature Source Tympanic 02/14/19 16:13 Pulse 80 02/14/19 16:13 Pulse Rhythm Regular 02/14/19 18:27 Pulse 91 H 02/13/19 16:00 Respiratory Rate 14 02/14/19 16:13 Respiratory Effort Non-Labored 02/14/19 18:27 Respiratory Depth Normal 02/14/19 18:27 Respiratory Pattern Normal 02/14/19 18:27 Blood Pressure 124/86 02/14/19 16:13 Blood Pressure Mean 92 02/13/19 15:01 Blood Pressure Position Supine 02/13/19 11:58 Pulse Oximetry 95 02/14/19 16:13 Oxygen Delivery Method Room Air 02/14/19 16:13 Oxygen Flow Rate 0 02/14/19 16:13 Pain Level 0 02/14/19 16:13 Intake & Output 02/13/19 02/14/19 02/14/19 23:59 11:59 23:59 Intake Total 600 / 600 980 / 1220 240 / 1220 Output Total 1100 / 1100 Balance 600 / 600 -120 / 120 240 / 120 Weight 118.841 kg 114.2 kg Intake: Oral 600 / 600 980 / 1220 240 / 1220 Output: Urine 1100 / 1100 Other: Urine Color Yellow Yellow Urine Appearance Clear Clear Clear Urine Odor None Normal Comment no urinary issues voiced Stool Characteristics Soft Formed Liquid Voiding Methods Toilet Toilet # Voids 1 Laboratory Results WBC 7.25 k/cumm (4.4-10.8) 02/14/19 06:40 RBC 5.03 m/cumm (4.50-6.00) 02/14/19 06:40 Hgb 15.2 g/dL (13.5-17.5) 02/14/19 06:40 Hct 43.8 % (40.0-50.0) 02/14/19 06:40 MCV 87.1 fL (80-95) 02/14/19 06:40 MCH 30.2 pg (27.0-33.0) 02/14/19 06:40 MCHC 34.7 g/dL (32.0-36.0) 02/14/19 06:40 RDW 12.6 % (11.8-14.1) 02/14/19 06:40 Plt Count 214 x1000/uL (130-400) 02/14/19 06:40 MPV 9.7 fL (8.0-11.0) 02/14/19 06:40 Immature Gran % 0.5 02/13/19 12:05 Neutrophils % 67.1 02/13/19 12:05 Lymphocytes % 23.2 02/13/19 12:05 Monocytes % 6.6 02/13/19 12:05 Eosinophils % 2.2 02/13/19 12:05 Basophils % 0.4 02/13/19 12:05 Absolute Neutrophils 5.45 k/cumm (1.2-6.7) 02/13/19 12:05 Absolute Lymphocytes 1.89 k/cumm (1.2-3.4) 02/13/19 12:05 Absolute Monocytes 0.54 k/cumm (0.11-0.7) 02/13/19 12:05 Absolute Eosinophils 0.18 k/cumm (0.0-0.7) 02/13/19 12:05 Absolute Basophils 0.03 k/cumm (0.0-0.2) 02/13/19 12:05 Sodium 138 mmol/L (136-145) 02/14/19 06:40 Potassium 4.6 mmol/L (3.5-5.1) 02/14/19 06:40 Chloride 103 mmol/L (98-107) 02/14/19 06:40 Carbon Dioxide 24.9 mmol/L (21.0-32.0) 02/14/19 06:40 Anion Gap 10.1 mmol/L (3-11) 02/14/19 06:40 BUN 21 mg/dL (7-18) H 02/14/19 06:40 Creatinine 0.77 mg/dL (0.70-1.30) 02/14/19 06:40 Estimated GFR/1.73 m2 >= 60.00 (mL/min/1.73m2) 02/14/19 06:40 Glucose 150 mg/dL (70-100) H D 02/14/19 06:40 Calcium 8.9 mg/dL (8.5-10.1) 02/14/19 06:40 Magnesium 1.8 mg/dL (1.8-2.4) 02/14/19 06:40 Total Bilirubin 0.5 mg/dL (0.2-1.0) 02/13/19 12:05 AST 33 U/L (15-37) 02/13/19 12:05 ALT 81 U/L (12-78) H 02/13/19 12:05 Alkaline Phosphatase 122 U/L (46-116) H 02/13/19 12:05 Troponin I 0.02 ng/mL (0.00-0.06) 02/14/19 00:15 NT-Pro-B Natriuret Pep 115 pg/mL (-299) 02/13/19 12:05 Total Protein 6.7 g/dL (6.4-8.2) 02/13/19 12:05 Albumin 3.5 g/dL (3.4-5.0) 02/13/19 12:05 Triglycerides 182 mg/dL (30-150) H 02/14/19 06:40 Total Cholesterol 112 mg/dL (50-200) 02/14/19 06:40 LDL Cholesterol Direct 50 mg/dL (<100) 02/14/19 06:40 HDL Cholesterol 35 mg/dL (40-60) L 02/14/19 06:40
[2019-02-14] MEDS: ROSUVASTATIN 20 MG TAB 40 MG PO (22:08)
[2019-02-15 00:37] VITALS: BP 110/68; PULSE 76; RESP 18; TEMP 36.6; O2SAT 96
[2019-02-15 04:00] VITALS: BP 106/66; PULSE 80; RESP 20; TEMP 36.4; O2SAT 98
[2019-02-15 07:00] VITALS: PULSE 66
[2019-02-15 07:30] VITALS: BP 109/74; PULSE 82; RESP 18; TEMP 36.1; O2SAT 97
[2019-02-15] MEDS: Insulin Aspart 300 UNITS/3 ML PEN SC ×2 (08:03→12:07)
[2019-02-15] MEDS: Lisinopril 5 MG TAB PO (08:04)
[2019-02-15] MEDS: Metoprolol CR 100 MG TABCR PO (08:05)
[2019-02-15] MEDS: Sertraline 50 MG TAB 100 MG PO (08:05)
[2019-02-15] MEDS: Clopidogrel 75 MG TAB PO (08:05)
[2019-02-15] MEDS: Spironolactone 25 MG TAB 12.5 MG PO (08:05)
[2019-02-15] MEDS: Aspirin 81 MG CHEW PO (08:05)
[2019-02-15 11:25] VITALS: BP 110/71; PULSE 55; RESP 18; TEMP 36.3; O2SAT 98
--- NOTE | 2019-02-15 12:36 | DSE_ITS ---
Date of service: 02/15/19 Time of Service: 12:25 DS: Diagnosis Discharge Diagnosis (1) Chest pain: Status: Acute (2) ASCVD (arteriosclerotic cardiovascular disease): Status: Chronic (3) Chronic HFrEF (heart failure with reduced ejection fraction): Status: Chronic (4) Type 2 diabetes mellitus with hyperglycemia, with long-term current use of insulin: Status: Chronic (5) Obstructive sleep apnea, adult: Status: Chronic (6) Essential hypertension: Status: Chronic (7) Hyperlipidemia: Status: Chronic Discharge Plan Disposition Patient Disposition: HOME Condition: Stable Discharge Details Chief Complaint: Chest Pain Reason For Visit: CHEST PAIN, ?UNSTABLE ANGINA Admit Date/Time: 02/13/19 14:29 Admit Provider: Ivory Yoon Attending Provider: Ivory Yoon Primary Care Provider: Camilla Sherman ED Provider: Anson Chew [facility] Course Hospital Course: Mr Tang is a 53 year old male with PMHx of CAD/s/p NSTEMI/MADONNA to LAD at [facility] (07/07), no longer on plavix at the time of presentation, as well as ICMO/CHF with latest known EF of 50%, IDDM2, medical noncompliance, who presented to [facility] ED on 02/13/19 with several episodes of chest pain, latest of which was relieved with nitroglycerin. He was placed in observation status on the medical surgical floor under the hospitalist service. He did not have any recurrences of chest pain while observed here. He did not have any arrhythmias, his troponins were negative and EKGs nonischemic. He was evaluated by cardiology and recommended to undergo repeat stress testing (he had a negative stress test in October of 2018, but has been generally noncompliant with his medications). Unfortunately, we will be unable to do this stress test as an inpatient in a reasonable amount of time. Per Dr Wilson, it would be reasonable to obtain this stress test as outpatient. We did resume plavix on this admission and are discharge the patient home with it. The patient should not return to work until he undergoes the stress test as it sounds like his work could be physically demanding. The patient is meeting with a family life educator prior to his discharge. Additionally, as we were able to physically see the patient's pill bottles (there are many of the same medication, he is clearly not taking most of his medications), our case management is arranging for home health nursing to come to the patient's house to assess/help with medications as well as provide some teaching. The patient does have a known reading difficulty and, I am afraid, does not have a good understanding of which medications he is supposed to take and how. It is my recommendation on this patient's discharge that whenever the patient goes to see his health care providers, he is asked to bring in his actual medications rather than a list - to make sure that we all know exactly what he is taking. The list the patient brought with him had major discrepancies from the prescriptions filled at the pharmacy and the pill bottles physically brought in. He will need to follow up for the outpatient stress test early next week - as well as with his PCP. Home Meds and New Rx's Prescriptions: New clopidogrel [Plavix] 75 mg Tablet 75 mg PO DAILY Qty: 30 RF: 0 Continued OneTouch Ultra Test 1 EACH strip 1 ea Miscellaneous AC & HS Qty: 350 RF: 3 lancets 1 EACH misc 1 ea Miscellaneous QID Qty: 350 RF: 3 pen needle, diabetic 1 EACH needle Miscellaneous TID Qty: 300 RF: 3 lisinopril 5 mg tablet 5 mg PO DAILY Qty: 90 RF: 3 sertraline [Zoloft] 100 mg tablet 100 mg PO DAILY Qty: 90 RF: 3 metformin 1,000 mg tablet 1,000 mg PO BID Qty: 180 RF: 3 nitroglycerin 0.4 mg tablet, sublingual 0.4 mg SL Q5M MDD 3 doses PRN (Reason: chest pain) Qty: 30 RF: 0 aspirin 81 mg tablet,chewable 81 mg PO DAILY Qty: 90 RF: 3 rosuvastatin [Crestor] 40 mg tablet 40 mg PO HS RF: 0 Humulin R U-500 (Conc) Kwikpen 500 unit/mL (3 mL) insulin pen 40 unit subcut AC RF: 0 metoprolol succinate [Toprol XL] 100 mg Tablet Extended Release 24 Hr 100 mg PO DAILY RF: 0 Victoza 2-Alfonso 0.6 mg/0.1 mL (18 mg/3 mL) Pen Injector 1.8 mg subcut DAILY RF: 0 Jardiance 25 mg Tablet 25 mg PO DAILY RF: 0 Discharge Instructions Instructions: Cardiac Stress Test (DC), Chest Pain (DC) Additional Instructions: Return to the hospital with any fever, bleeding, chest pain which is prolonged/does not respond to nitroglycerin, or shortness of breath. You may not return to work until you get your stress test. Stand Alone Forms: Nursing Discharge Form Referrals: Camilla Sherman NP [Primary Care Provider] - 03/02/19 10:00 am Activity:: May not return to work until stress test Equipment/Supplies:: No Equipment Needed Diet:: Diabetic cardiac, low caffeine Discharge Orders Discharge Orders: Discharge Order (Routine); Ordered 02/15/19 Ordered By: Ivory Yoon Other Ambulatory Orders: Nuclear Medicine Stress Test (Outpt) (ONCE) Timeframe: [id number] Facility: [facility] - Location: STRESS LAB Ordered By: Ivory Yoon Exam Narrative Exam Narrative: General: Very pleasant obese male, in bed, comfortable HEENT: Atraumatic, normocephalic, EOMI, MMM, no submandibular or cervical lymphadenopathy, no goiter or JVD Cardiovascular: RRR, no m/r/g Lungs: CTAB Gastrointestinal: abdomen is soft, nontender, nondistended Extremities: no e/c/c BLE's, 1+ pedal pulses B. DS: Data Vitals/I&O Vitals and I&O: Vital Signs Temperature 36.1 C L 02/15/19 07:30 Temperature Source Tympanic 02/15/19 07:30 Pulse 82 02/15/19 07:30 Pulse Rhythm Regular 02/14/19 20:20 Pulse 91 H 02/13/19 16:00 Respiratory Rate 18 02/15/19 07:30 Respiratory Effort Non-Labored 02/14/19 20:20 Respiratory Depth Normal 02/14/19 20:20 Respiratory Pattern Normal 02/14/19 20:20 Blood Pressure 109/74 02/15/19 07:30 Blood Pressure Mean 92 02/13/19 15:01 Blood Pressure Position Supine 02/13/19 11:58 Pulse Oximetry 97 02/15/19 07:30 Oxygen Delivery Method Room Air 02/15/19 07:30 Oxygen Flow Rate 0 02/15/19 07:30 Pain Level 0 02/15/19 07:30 Comment 02/15/19 04:00 Intake & Output 0302/15/19 02/15/19 23:59 11:59 23:59 Intake Total 480 / 1460 Output Total 600 / 600 Balance 480 / 360 -600 / -600 Weight 113.8 kg Intake: Oral 480 / 1460 Output: Urine 600 / 600 Other: Urine Color Pale Urine Appearance Clear Clear Urine Odor Normal Voiding Methods Urinal Completed studies during hospitalization [Text1]: CXR: 02/13/19: No evidence of acute disease. [facility] Medical History Microalbuminuria (Chronic) Type 2 diabetes mellitus with retinopathy, with long-term current use of insulin (Chronic 10/27/17) Tubular adenoma of colon (Inactive 10/18/14) Sensorineural hearing loss, bilateral (Chronic 11/24/17) Restless leg syndrome (Chronic 10/31/14) Pulmonary hypertension (Chronic 07/14/17) Obstructive sleep apnea, adult (Chronic 10/31/14) Nonproliferative diabetic retinopathy (Chronic) Noncompliance with medication regimen (Chronic 07/06/13) NSTEMI (non-ST elevated myocardial infarction) (Inactive 07/11/17) Morbid obesity (Chronic 07/06/13) Hyperlipidemia (Chronic 07/06/13) Erectile dysfunction (Chronic 07/06/13) Essential hypertension (Chronic 07/06/13) Elevated ferritin level (Chronic 10/20/17) Depression (Chronic 11/25/11) Conductive hearing loss (Chronic 07/06/13) Chronic HFrEF (heart failure with reduced ejection fraction) (Chronic 07/20/18) ASCVD (arteriosclerotic cardiovascular disease) (Chronic 07/28/17) Adult BMI > 30 Hyperuricemia RLS (restless legs syndrome) Surgical History S/P coronary artery stent placement (Inactive) Cholecystectomy (Inactive) Colonoscopy - IV Sedation (Inactive 10/14/14) Social History Smoking/Tobacco Use Status: Never Alcohol Intake: current Alcohol Intake frequency: holidays/special occasions only Drug use: Never Substance use type: does not use Household members: spouse Housing: apartment Number of Children: 1 Communication Needs: None 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 Pets and animals: No Current gender identity: male What type of physical activity do you participate in: other Details: skiing Frequency: other 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 service parts driver: No Do you feel safe at home: Yes Do you feel safe in your relationship?: Yes
--- NOTE | 2019-02-15 12:41 | PDOC.HHF2F ---
1. Encounter Date and Reason I certify that DANAY HAHN was seen by Ivory Yoon on 02/15/19 and that I had a [id number] encounter with this patient that meets the physician face to face encounter requirements. 2. Clinical Findings Supporting Skilled Need and Homebound Status I certify that home health services are medically necessary, include either intermittent half-way and/or physical/speech therapy, and that this patient is homebound in that absences from the home require considerable and taxing effort and are infrequent or of short duration, or are attributable to the need to receive medical care. [X] (a) Attached documentation from encounter provides clinical findings supporting skilled need and homebound status (including what assistance patient requires to leave the home). The encounter with the patient was in whole, or in part, for the following medical condition, which is the primary reason for home health care: CHEST PAIN, ?UNSTABLE ANGINA Detention: medication assessment and teaching. Help set up pill box. Patient has difficulty with reading. 3. Certification and Authentication I certify that I composed the above information based on my clinical judgement relating to this patient's medical condition and, if applicable, clinical findings communicated to me by the NPP or inpatient physician who performed the Home Health Referral. All further orders will be obtained through ___Sharon Sherman NP (Community Based Physician - PCP)
[2019-02-15 13:06] VITALS: PULSE 80
--- NOTE | 2019-02-15 14:42 | PDOC.CMDIS ---
- If Service Date Differs Date of service: 02/15/19 Time of Service: 14:42 LACE Index Scoring Tool - Questions: Length of Stay (in days): 2 Acuity (Admit via E.D.?): Yes Comorbidities: Diabetes w/o Complication E.D. Visits: 3 - Answers: Total Score: 9 Risk of Readmission: Low Risk Care Management Discharge Reason for Hospitalization: Chest Pain Discharge Plan: Edward will return home today with home health RN services. He will F/U with PCP and plan of care as prescribed. Edward will transport himself home via private vehicle. Patient/Family Education Needs: Review DC instructions, any limitations, and discuss 'Ask Me Three' Services Needed at Discharge: Home Health Care Services (RN)
--- NOTE | 2019-02-15 17:40 | W.NUTRFU ---
Date of service: 02/15/19 Time of Service: 11:30 Nutritional Follow up NOTE: Met with Mr. Tang to discuss meals and snacks that would appropriate for bringing to work and that would sustain his blood sugars. We also discussed eliminating sugar sweetened beverages and using sugar free flavors if he gets tired of water. Provided written materials. Mr. Tang made mention that sometimes he does not have time to eat at work. I strongly encouraged him to discuss with his employer the importance of his eating during his break at work so that he does not get a low blood sugar. He verbalized that he would talk to them about it. Mr. Tang verbalized a good understanding of our session. He will follow up with Danita Casiano RN, CDE in the community for his regular diabetes self management education. Thank you for the consult. Time Spent in Nutritional Counseling and Treatment: ANANTH
== END 2019-02-15 14:28 | disposition home or self-care (01) ==
LOC: ER 16:07 → MS 17:00
PROVIDERS: Admitting Provider Internal Medicine; Emergency Provider Emergency Medicine; PCP Nurse Practitioner Family; Visit Provider Internal Medicine
DX: R07.89 Other chest pain (principal); R42 Dizziness and giddiness; R11.0 Nausea; R06.02 Shortness of breath; E11.65 Type 2 diabetes mellitus with hyperglycemia; I25.10 Atherosclerotic heart disease of native coronary artery without angina pectoris; I50.22 Chronic systolic (congestive) heart failure; I25.2 Old myocardial infarction; I10 Essential (primary) hypertension; E78.5 Hyperlipidemia, unspecified; Z79.4 Long term (current) use of insulin; Z95.5 Presence of coronary angioplasty implant and graft; Z91.19 Patient's noncompliance with other medical treatment and regimen; Z71.3 Dietary counseling and surveillance
CPT/HCPCS: 36415; 80048; 80053; 80061; 83721; 85027; 93005; 99217; 99220; 99225; 99254; 99285; J1650; 71045; 83735; 83880; 84484; 85025; 93010; G0378

== ENCOUNTER 2019-02-19 00:09 | Outpatient (CLI) | payer MEDICAID, SELFPAY ==
--- NOTE | 2019-02-19 08:45 | MERGEMPI_ITS ---
*[facility]* *[facility]* [address] [place] [address] Myocardial Perfusion Imaging - SPECT Fercho protocol Date of study: 02/19/2019 *PATIENT PRESENTATION* Height: 180.3cm (71in) Blood Pressure: Weight: 115.9kg (255lb) BSA: 2.45m^2 Referring physician: Pantera Mcgee MD Ordering physician: Ivory Yoon Impressions: - Abnormal study after pharmacologic stress. - Abnormal contraction consistent with cardiomyopathy. - Med RX for CAD reasonable. Summary: 1. Myocardial perfusion imaging: There is a small sized, moderately intense, predominantly fixed defect involving the inferolateral and apical wall(s). in the distribution of the left circumflex coronary artery. Overall ischemia: small. 2. The calculated left ventricular ejection fraction after stress: 49%. Diffuse left ventricular regional motion abnormalities. 3. Stress: The target heart rate was not achieved. Indication: R07.89. History: REASON FOR VISIT: PT WAS ADMITTED TO THE HOSPITAL ON 02/13/19 DUE TO CHEST PAIN. HE HAS A SIGNIFICANT PAST MEDICAL HISTORY OF CAD S/P NSTEMI/MADONNA TO LAD AT [facility] IN 06/2017. PT NO LONGER ON PLAVIX AT DAY OF HOSPITAL ADMISSISON. HISTORY OF ICMO/CHF WITH LATEST EF OF 50%, HE IS IDDM2. TROPONINS WERE NEGATIVE AND EKGs NON ISCHEMIC. HE IS HERE TODAY PER CARDIOLOGY RECOMMENDATION FOR FOLLOW UP. NO FURTHER EPISODES OF CHEST PAIN SINCE BEING DISCHARGED FROM HOSPITAL ON 02/15/19. Risk factors: Family history of coronary artery disease. Hypertension. Diabetes mellitus. Obesity. Dyslipidemia. Cholesterol: 112mg/dl. HDL: 35mg/dl. LDL: 50mg/dl. Triglycerides: 182mg/dl. ALLERGIES: BEE VENUM PROTEIN. PENICILLINS. SHELLFISH. MEDICATIONS: METOPROLOL SUCCINATE 100 MG DAILY. CLOPIDOGREL 75 MG DAILY. LISINOPRIL 5 MG DAILY. ASPIRIN 81 MG DAILY. NITROGLYCERIN 0.4 MG SL PRN. ROSUVASTATIN 40 MG DAILY AT HS. SERTRALINE 100 MG DAILY. METFORMIN 1,000 MG DAILY. HUMULIN R U-500 40 UNITS SQ AC. VICTOZA 1.8 MG SQ DAILY. JARDIANCE 25 MG DAILY. Imaging Technique: Protocol: Fercho protocol. Acquisition: Gated SPECT; 1 day - rest/stress. The patient was imaged in the supine position. Attenuation correction used. Isotope administration: - Rest. Tc[99m]-sestamibi. Dose: 12.2mCi. Injection time: 08:30 AM. Injection to stress time: 00:45. - Stress. Tc[99m]-sestamibi. Dose: 36.8mCi. Injection time: 10:10 AM. 1-2 min before end of exercise Baseline ECG: SINUS RHYTHM. HR 85 BPM. ABNORMAL R WAVE PROGRESSION, LATE TRANSITION. Stress protocol: + +---+ + + !Stage !HR !BP (mmHg) !Comments ! + +---+ + + !Baseline supine !85 !110/70 (83) ! ! + +---+ + + !Baseline standing !106!100/80 (87) ! ! + +---+ + + !Stage I; 1.7mph, 10degrees; 3 min!113!100/72 (81) ! ! + +---+ + + !Stage II; 2.5mph, 12degrees; 3 !125!140/84 (103)! ! !min ! ! ! ! + +---+ + + !Recovery; 1 min !125!90/62 (71) ! ! + +---+ + + !Recovery; 3 min !104!130/90 (103)! ! + +---+ + + !1 min !117!112/76 (88) !Inject Regadenoson.! + +---+ + + !3 min !113!102/80 (87) ! ! + +---+ + + !6 min !107!112/80 (91) ! ! + +---+ + + * Stress results: Maximal heart rate during stress was 129bpm (78% of maximal predicted heart rate). The maximal predicted heart rate was 165bpm. The target heart rate was not achieved. The rate-pressure product for the peak heart rate and blood pressure was 41839hi Hg/min. Stress ECG: TREADMILL PORTION OF STRESS TEST ENDED IN 6 MINUTES & 20 SECONDS DUE TO LEG CRAMPS AND SHORTNESS OF BREATH. PT UNABLE TO MEET 85% OF TARGET HEART RATE. NORMAL HEART RATE RESPONSE TO EXERCISE. BRIEF DROP IN SYSTOLIC BLOOD PRESSURE OF 50 mmHg UPON IMMEDIATE RECOVERY, OTHERWISE NORMAL BP RESPONSE TO EXERCISE OCCASIONAL PVCs. NO ANGINA NO SIGNIFICANT ST SEGMENT CHANGES. MILDLY DIMINISHED FUNCTIONAL CAPACITY FOR EXERCISE. TRANSITIONED TO PHARMACOLOGICAL STRESS TEST DUE TO PT UNABLE TO REACH HIS TARGET HEART RATE. LEXISCAN STRESS TEST ENDED IN 6 MINUTES AND 16 SECONDS. PT EXPERIENCED NO SYMPTOMS FROM LEXISCAN INJECTION. NORMAL HEART RATE AND BLOOD PRESSURE RESPONSE TO LEXISCAN INJECTION. RARE PVCs. NO ANGINA. NO SIGNIFICANT ST SEGMENT CHANGES. Myocardial perfusion: Imaging information: gated. There is a small sized, moderately intense, predominantly fixed defect involving the inferolateral and apical wall(s). in the distribution of the left circumflex coronary artery. Overall ischemia: small. Ventricular Function (Wall Motion): The calculated left ventricular ejection fraction after stress: 49%. Diffuse left ventricular regional motion abnormalities. Study data: Panetra Mcgee MD supervised and was readily available during the procedure. This study was interpreted by [facility]. Study status: Routine. Consent: The risks, benefits, and alternatives to the procedure were explained to the patient and informed consent was obtained. Procedure: Initial setup. A baseline ECG was recorded. Surface ECG leads and manual cuff blood pressure measurements were monitored. Heart sounds: Normal. Lung sounds: Normal. Treadmill exercise testing was performed using the Fercho protocol. Study completion: All catheters inserted during the procedure were removed. The patient tolerated the procedure well and was discharged from the lab. Discharge: The patient left the laboratory in stable condition. Birthdate: Patient birthdate: 1965. Sex: Gender: male. Study date: Study date: 02/19/2019. Study time: 00:01 AM. Electronically signed by Pantera Mcgee MD 02/19/2019 18:15
[2019-02-19] MEDS: Regadenoson 0.4 MG/5 ML SYR IVP (11:06)
== END 2019-02-19 00:29 ==
PROVIDERS: PCP Nurse Practitioner Family; Visit Provider Internal Medicine
DX: R07.89 Other chest pain (principal); Z95.5 Presence of coronary angioplasty implant and graft; I51.7 Cardiomegaly
CPT/HCPCS: 78452; 93017; J2785

== ENCOUNTER 2019-04-13 13:35 | Outpatient (CLI) | payer MEDICAID, SELFPAY ==
--- NOTE | 2019-04-17 12:04 | DIABASSESS_ITS ---
DESCRIPTION: Ewdard Tang presents for diabetes self management with focus on medical nutrition therapy to identify carbohydrate in foods. He has had longstanding support for his diabetes in the past. NUTRITION: eating low sugar cereal and milk for breakfast; protein and pasta for supper, occasionally has pie chef salad with croutons and olives. 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 He often is not able to eat lunch because he is working. He sometimes has flatbread with olive loaf, cheese and daily. He has given up coke; drinks green tea and diet cranberry juice. He states he is still losing weight. PHYSICAL ACTIVITY/STRESS: States he spends most of his time in his room inactive if he isn't working. He voices a desire to go for a walk, but just can't get there. He admits to being depressed because of his work situation where he is not getting enough hours. 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 MEDICATION: U500 40 units breakfast nad supper. Novolog 3-12 when he eats, if he monitors his blood sugars before. He often does not monitor blood sugars. MONITORIN/22 blood sugar read HIGH; currently less than 200mg/dl. INTERVENTION: He feels he is here to review carbohydrate sources and this is done with him. He voices portions of fruit and bread accurately. Given that his blood sugars are improved and he feels he is doing well with taking insulin, he voices no interest in other diabetes support at this time. Denies hypoglycemia. He does carry butterscotch and cinnamon candies at work. States he has support for work but it isn't helping. PLAN: He will continue to be mindful of his carbohydrate intake and attempt to dose insulin with each meal. Stay in touch with his support for help with his work situation. Individual MNT _2___ units billed TIME IN: 0448 OUT: [id number] No DM group education series being offered at this time.
== END 2019-04-13 13:55 ==
PROVIDERS: PCP Nurse Practitioner Family; Visit Provider Dietitian, Registered
DX: E11.9 Type 2 diabetes mellitus without complications (principal); Z79.4 Long term (current) use of insulin; Z71.3 Dietary counseling and surveillance
CPT/HCPCS: 97802

== ENCOUNTER 2019-05-15 06:01 | Observation (INO) | payer MEDICAID, SELFPAY ==
[2019-05-15] VITALS (56 sets, daily range): BP systolic 91–123; BP diastolic 61–101; PULSE 41–86; RESP 10–174; TEMP 36.1–36.8; O2SAT 94–98
--- NOTE | 2019-05-15 06:08 | ED.GENADUL_ITS ---
Discharge Plan Disposition Patient Disposition: HOME Condition: Stable Discharge Details Chief Complaint: Chest Pain Clinical Impression: Chest pain Admit Date/Time: 05/15/19 09:51 Admit Provider: Mars Tobias Attending Provider: Mars Tobias Primary Care Provider: Camilla Sherman ED Provider: Blake Flower Discharge Data Discharge Date/Time-TO BE ENTERED AT DEPARTURE: 05/15/19 10:27 Medical Decision Making <Pantera Booth MD - Last Filed: 05/15/19 07:06> 53yo male with hx of CAD/s/p NSTEMI/MADONNA to LAD at [facility] (07/07), Iischemic cardiomyopathy, IDDM2, htn, who presents today with chest pain that started last night. He is rating his pain at 10/10 though appears in no distress on arrival speaking in full sentences with no evidence of severe pain on exam. He localizes the pain o the left chest just lateral to the left breast, no rashes, denies falls, fevers, n/v .He denies any radiation of pain. He is very tender in this area on exam, no abdominal tenderness. Denies diaphoresis or increased pain with walking. Given his hx will obtain troponin, ecg unchanged. Given he states that there is an increased pain with deep breaths will obtain CTA to eval for pe. No tearing back pain and normal vascular exam so doubt dissection at this time pt states pain is gone, remains hd stable, lab work shows no acute pathology, awaiting vrad read of the cta. Patient would prefer to have second ecg/troponin and if negative d/c and came to the decision after risks/benefits were discussed of this vs admission. He will remain in the ED And have a 2nd troponin and ecg done at 9am and if negative will d/c and have him f/u with his pcp Medical Records Medical records reviewed: Yes I reviewed the patient's medical records. Imaging Data Radiologic Study: Attestation: I personally reviewed and interpreted this imaging study as follows: Imaging: CT Scan Radiologist's impression: no acute findings Lab Data Lab results reviewed: Yes I reviewed the patient's lab results. ECG Data Attestation: I personally reviewed and interpreted this ECG (s) as follows: Prior ECG tracings: available for review Interpretation: sinus rhythm, rate of 80, pr 194, qtc 425, no acute st t wave ischemic changes from prior ecg <Blake Flower MD - Last Filed: 06/05/19 08:30> Repeat trop neg. Patient has risk factors for acs. Plan to admit for further care. Repeat ecg revieed and interpreted by me: nsr 68bpm, left axis dev, 1mm st elev V1. I spoke with hospitalist and discussed ED presentation and course. He will admit. Care transitioned to hospitalist. HPI <Pantera Booth MD - Last Filed: 05/15/19 07:06> General Mode of arrival: ambulatory . Date/Time Provider Initiated Documentation: 05/15/19 06:05 . Limitations to Documentation: no limitations . Information obtained by: patient . History of Present Illness 53 year old M presents to the emergency department with the chief complaint of chest pain, described as moderate, Quality is described as aching, and is localized to the chest. Patient reports no radiation. Patient started experiencing this day(s) (1) and it has been constant. No relieving factors improve symptom(s), No exacerbating factors reported . Patient notes shortness of breath. Patient did receive the following treatments prior to arrival, none Related Data Home Medications Medication Instructions Recorded Confirmed OneTouch Ultra Test #350 strip 08/16/17 05/22/19 lancets #350 ea 08/24/17 05/22/19 pen needle, diabetic #300 03/02/18 05/22/19 lisinopril 5 mg tablet 5 mg PO DAILY #90 tab-cap 09/13/18 05/22/19 sertraline 100 mg tablet 100 mg PO DAILY #90 tab-cap 09/13/18 05/22/19 metformin 1,000 mg tablet 1,000 mg PO BID #180 tab-cap 12/08/18 05/22/19 nitroglycerin 0.4 mg sublingual 0.4 mg SL Q5M PRN #30 tab-cap MDD 01/08/19 05/22/19 tablet 3 doses aspirin 81 mg chewable tablet 81 mg PO DAILY #90 tab-cap 01/18/19 05/22/19 rosuvastatin [Crestor] 40 mg PO HS 02/13/19 05/22/19 Jardiance 25 mg PO DAILY 02/15/19 05/22/19 clopidogrel [Plavix] 75 mg PO DAILY #30 tab 02/15/19 05/22/19 metoprolol succinate 100 mg 150 mg PO DAILY tab 03/05/19 05/22/19 tablet,extended release 24 hr insulin aspart U-100 100 100 See Rx Instructions SC AC #15 ml 03/14/19 05/22/19 unit/mL subcutaneous pen insulin regular hum U-500 conc 500 See Rx Instructions SC QAM 03/14/19 05/22/19 unit/mL(3 mL) subcut pen flash glucose sensor #1 each 05/03/19 05/22/19 magnesium oxide 400 mg PO DAILY #7 tab 05/16/19 05/22/19 pantoprazole 40 mg PO DAILY@0730 #30 tab 05/16/19 05/22/19 Previous Rx's Medication Instructions Recorded OneTouch Ultra Test #350 strip 08/16/17 lancets #350 ea 08/24/17 lisinopril 5 mg tablet 5 mg PO DAILY #90 tab-cap 09/13/18 sertraline 100 mg tablet 100 mg PO DAILY #90 tab-cap 09/13/18 metformin 1,000 mg tablet 1,000 mg PO BID #180 tab-cap 12/08/18 nitroglycerin 0.4 mg sublingual 0.4 mg SL Q5M PRN #30 tab-cap MDD 01/08/19 tablet 3 doses aspirin 81 mg chewable tablet 81 mg PO DAILY #90 tab-cap 01/18/19 clopidogrel [Plavix] 75 mg PO DAILY #30 tab 02/15/19 insulin aspart U-100 100 100 See Rx Instructions GA AC #15 ml 03/14/19 unit/mL subcutaneous pen flash glucose sensor #1 each 05/03/19 magnesium oxide 400 mg PO DAILY #7 tab 05/16/19 pantoprazole 40 mg PO DAILY@0730 #30 tab 05/16/19 Allergies Allergy/AdvReac Type Severity Reaction Status Date / Time bee venom protein (honey bee) Allergy Severe Swelling/Ed Verified 05/22/19 11:19 capri Penicillins Allergy Unknown Rash Verified 05/22/19 11:19 shellfish derived Allergy Unknown Rash; Verified 05/22/19 11:19 swelling General VAN: 2 Review of Systems <Pantera Booth MD - Last Filed: 05/15/19 07:06> Review of Systems All systems reviewed & are unremarkable except as noted in HPI and below Constitutional Denies chills, Denies fever(s) and Denies weakness Respiratory Denies cough Gastrointestinal Denies abdominal pain, Denies nausea and Denies vomiting Neurologic Denies weakness [facility] <Pantera Booth MD - Last Filed: 05/15/19 07:06> Medical History Hyperuricemia (Inactive) Adult BMI > 30 (Chronic) Microalbuminuria (Chronic) Callus of foot (Chronic) Type 2 diabetes mellitus with retinopathy, with long-term current use of insulin (Chronic 10/27/17) Tubular adenoma of colon (Inactive 10/18/14) Sensorineural hearing loss, bilateral (Chronic 11/24/17) Restless leg syndrome (Chronic 10/31/14) Pulmonary hypertension (Chronic 07/14/17) Obstructive sleep apnea, adult (Chronic 10/31/14) Nonproliferative diabetic retinopathy (Chronic) Noncompliance with medication regimen (Chronic 07/06/13) NSTEMI (non-ST elevated myocardial infarction) (Inactive 07/11/17) Hyperlipidemia (Chronic 07/06/13) Erectile dysfunction (Chronic 07/06/13) Essential hypertension (Chronic 07/06/13) Elevated ferritin level (Chronic 10/20/17) Depression (Chronic 11/25/11) Conductive hearing loss (Chronic 07/06/13) Chronic HFrEF (heart failure with reduced ejection fraction) (Chronic 07/20/18) ASCVD (arteriosclerotic cardiovascular disease) (Chronic 07/28/17) Surgical History S/P coronary artery stent placement (Inactive) Cholecystectomy (Resolved) Colonoscopy - IV Sedation (Resolved 10/14/14) Family History Mother Essential hypertension Father Lung cancer Social History Smoking/Tobacco Use Status: Never Alcohol Intake: never Drug use: Never Substance use type: does not use Household members: spouse Housing: apartment Number of Children: 1 Communication Needs: None 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 Pets and animals: No Current gender identity: male What type of physical activity do you participate in: other Details: skiing Frequency: other 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 haul driver: No Do you feel safe at home: Yes Do you feel safe in your relationship?: Yes Exam <Pantera Booth MD - Last Filed: 05/15/19 07:06> Const General: no acute distress Orientation: alert HENMT Head: normal to inspection Ears: external ears normal General nose exam: external nose normal Mouth: moist mucous membranes Eyes General: appearance normal, both eyes and all related structures Neck Neck: normal visual inspection Resp Effort & Inspection: normal respiratory effort and able to speak in complete sentences Cardio Rate: regular rate Skin General skin exam: no rashes or lesions noted Neuro General: alert and oriented x3 Extrem General: normal to inspection Psych Mental Status: mental status grossly normal Sign Out <Pantera Booth MD - Last Filed: 05/15/19 07:06> Sign Out Data: Sign Out Comment: follow up on repeat troponin and ecg Last updated by Pantera Booth MD at 05/15/19 06:59
[2019-05-15 06:18] LABS: Abs Immature Grans 0.01 k/cumm (0.0-0.09); Absolute Basophil Count 0.02 k/cumm (0.0-0.2); Absolute Eosinophil Count 0.21 k/cumm (0.0-0.7); Absolute Lymphocyte Count 2.09 k/cumm (1.2-3.4); Absolute Monocyte Count 0.76 k/cumm (0.11-0.7); Absolute Neutrophil Count 3.91 k/cumm (1.2-6.7); Basophils % 0.3; HCT 42.4 % (40.0-50.0); HGB 15.1 g/dL (13.5-17.5); Immature Grans % 0.1; Lymphocytes % 29.9; Mean Corp. HGB Concentration 35.6 g/dL (32.0-36.0); Mean Corpuscular Hemoglobin 30.8 pg (27.0-33.0); Mean Corpuscular Volume 86.4 fL (80-95); Mean Platelet Volume 9.4 fL (8.0-11.0); Monocytes % 10.9; Neutrophils % 55.8; Platelet Count 230 x1000/uL (130-400); RBC 4.91 m/cumm (4.50-6.00); RBC Distribution Width 12.3 % (11.8-14.1)
[2019-05-15] MEDS: fentaNYL 100 MCG/2 ML VIAL 75 MCG IVP (06:18)
[2019-05-15] MEDS: Aspirin 81 MG CHEW (06:19)
[2019-05-15] MEDS: Normal Saline Flush 10 ML SYR IVP ×2 (06:21→18:43)
[2019-05-15 06:32] LABS: INR 1.1 (0.9-1.1); PTT Activated 28.1 sec (21.0-31.4)
[2019-05-15] MEDS: Omnipaque 350 MG/ML 100 ML BTL IJ (06:33)
[2019-05-15 06:36] LABS: ALT 51 U/L (12-78); AST 33 U/L (15-37); Albumin 3.8 g/dL (3.4-5.0); Alkaline Phosphatase 152 U/L (46-116); Anion Gap 10.5 mmol/L (3-11); BUN 26 mg/dL (7-18); Bilirubin, Total 0.5 mg/dL (0.2-1.0); CO2 23.5 mmol/L (21.0-32.0); CREATININE 0.95 mg/dL (0.70-1.30); Calcium 9.2 mg/dL (8.5-10.1); Chloride 103 mmol/L (98-107); Glucose 281 mg/dL (70-100); Magnesium 1.6 mg/dL (1.8-2.4); Potassium 4.5 mmol/L (3.5-5.1); Sodium 137 mmol/L (136-145); Total Protein 7.1 g/dL (6.4-8.2)
--- NOTE | 2019-05-15 06:40 | DI.CT_ITS ---
SYMPTOM/DIAGNOSIS: LEFT SIDED PLEURITIC CHEST PAIN CHEST CT FOR PULMONARY EMBOLISM: CT angiography was performed with multi slice acquisition and multi planar and 3D reconstruction. There is no evidence of pulmonary emboli or aortic dissection There is mild aortic and coronary artery calcifications. The aorta is normal in diameter. No pleural or pericardial effusions or infiltrates are seen. There is no evidence of adenopathy. The patient is status post cholecystectomy. The upper portions of the liver and spleen are unremarkable. Degenerative changes are seen in the lower thoracic spine. IMPRESSION: No evidence of pulmonary emboli or other acute abnormality.
[2019-05-15 06:44] LABS: Troponin I < 0.05 ng/mL (0.00-0.06)
[2019-05-15 07:02] LABS: NT-proBNP 237 pg/mL
--- NOTE | 2019-05-15 07:02 | DI.VRAD_ITS ---
EXAM: CT Angiography Chest With Contrast EXAM DATE/TIME: 05/15/2019 6:14 AM CLINICAL HISTORY: 53 years old, male; Left-sided chest pain; Patient HX: Left sided pleuritic chest pain; Additional info: Rescanned bases dur to missed anatomy TECHNIQUE: Imaging protocol: Axial computed tomographic angiography images of the chest with intravenous contrast using CT angiography protocol. Coronal and sagittal reformatted images were created and reviewed. 3D rendering: MIP reconstructed images were created and reviewed. Radiation optimization: All CT scans at this facility use at least one of these dose optimization techniques: automated exposure control; mA and/or kV adjustment per patient size (includes targeted exams where dose is matched to clinical indication); or iterative reconstruction. Contrast material: OMNI 350; Contrast volume: 90 ml; Contrast route: IV; COMPARISON: CR XR PORTABLE CHEST AP 02/13/2019 12:32 PM FINDINGS: Pulmonary arteries: There is no evidence for PE. Aorta: Unremarkable. No aortic aneurysm. No aortic dissection. Lungs: Unremarkable. No consolidation. No masses. Pleural space: Unremarkable. No pneumothorax. No pleural effusion. Heart: Unremarkable. No cardiomegaly. No pericardial effusion. Lymph nodes: Unremarkable. No enlarged lymph nodes. Bones/joints: Unremarkable. No acute fracture. Soft tissues: Unremarkable. IMPRESSION: No acute findings Dictated and Authenticated by: Tereso Howell MD. Ordering:ANDRADE Mott MD
[2019-05-15 09:33] LABS: Troponin I < 0.05 ng/mL (0.00-0.06)
--- NOTE | 2019-05-15 11:00 | MERGE_ITS ---
*[facility]* *[facility]* [address] [place] [address] Date of study: 05/15/2019 Transthoracic Echocardiography M-mode, complete 2D, complete spectral Doppler, and color Doppler *STUDY CONCLUSIONS* Summary: 1. Left ventricle: The cavity size was normal. Wall thickness was normal. Systolic function was mildly to moderately reduced. The estimated ejection fraction was 40-45%. Akinesis of the apical myocardium. Moderate hypokinesis of the entireinferior myocardium. Moderate hypokinesis of the basalinferolateral myocardium. 2. Right ventricle: The cavity size was normal. Wall thickness was normal. Systolic function was normal. *PATIENT PRESENTATION* Height: 180.3cm ((71in) ) S/D Pressure: 108 / 73 Weight: 120.7kg ((265.4lb) ) BSA: 2.5m^2 Test start time: 11:00 AM. Test stop time: 11:50 AM. PERFORMING Unknown PERFORMING [facility] SENIOR WEALTH ADVISOR Trini Bettencourt RT (R)(CT), RDCS CONSULTING Camilla Sherman ORDERING Lisa Arredondo REFERRING Lisa Arredondo *PROCEDURE DATA* Procedure information: The patient was identified by two identifiers. This study was interpreted by [facility]. Pertinent images and digital data are archived for permanent storage and are available for subsequent review. Comparison was made to the study of 07/12/2017. Study status: Routine. Transthoracic echocardiography. M-mode, complete 2D, complete spectral Doppler, and color Doppler. A Transthoracic Echocardiogram was performed. Scanning was performed from the parasternal, apical, subcostal, and suprasternal notch acoustic windows. Images were obtained using an [id number] cardiac ultrasound machine. Image quality was adequate. Study completion: The patient tolerated the procedure well. There were no complications. History: PMH: CP HFrEF LVRF 30-35% hx NSTEMI. *CARDIAC ANATOMY* Left ventricle: The cavity size was normal. Wall thickness was normal. Systolic function was mildly to moderately reduced. The estimated ejection fraction was 40-45%. Regional wall motion abnormalities: Akinesis of the apical myocardium. Moderate hypokinesis of the entireinferior myocardium. Moderate hypokinesis of the basalinferolateral myocardium. There was no evidence of elevated ventricular filling pressure by Doppler parameters. Aortic valve: Trileaflet; normal thickness leaflets. Mobility was not restricted. Doppler: Transvalvular velocity was within the normal range. There was no stenosis. There was no significant regurgitation. VTI ratio of LVOT to aortic valve: 0.85. Valve area (VTI): 3.1cm^2. Indexed valve area (VTI): 1.2cm^2/m^2. Peak velocity ratio of LVOT to aortic valve: 0.75. Valve area (Vmax): 2.7cm^2. Indexed valve area (Vmax): 1.1cm^2/m^2. Mean velocity ratio of LVOT to aortic valve: 0.66. Valve area (Vmean): 2.4cm^2. Indexed valve area (Vmean): 1cm^2/m^2. Mean gradient (S): 3.3mm Hg. Peak gradient (S): 6mm Hg. Aorta: Aortic root: The aortic root was normal in size. Ascending aorta: The ascending aorta was normal in size. Mitral valve: Structurally normal valve. Mobility was not restricted. Doppler: Transvalvular velocity was within the normal range. There was no evidence for stenosis. There was no significant regurgitation. Valve area by pressure half-time: 2.9cm^2. Indexed valve area by pressure half-time: 1.2cm^2/m^2. Left atrium: The atrium was normal in size. Right ventricle: The cavity size was normal. Wall thickness was normal. Systolic function was normal. Pulmonic valve: Structurally normal valve. Doppler: Transvalvular velocity was within the normal range. There was no evidence for stenosis. There was no significant regurgitation. Tricuspid valve: Structurally normal valve. Doppler: Transvalvular velocity was within the normal range. There was no evidence for stenosis. There was trivial regurgitation. Pulmonary artery: Pulmonary systolic pressure was within the normal range, in the range of 20mm Hg to 25mm Hg. Right atrium: The atrium was normal in size. Pericardium: There was no pericardial effusion. Systemic veins: Inferior vena cava: Well visualized. The vessel was patent and normal in size. The respirophasic diameter changes were in the normal range (greater than or equal to 50%). Baseline ECG: Normal sinus rhythm. Measurements Left ventricle Value 07/12/2017 Reference LV ID, ED, PLAX 5.2 cm 6.1 3.5 - 6.0 LV ID, ES, PLAX (H) 4.1 cm 5.1 2.1 - 4.0 LV PW thickness, ED, PLAX 1.0 cm 1.0 LV end-diastolic volume, 100 ml 110 1-p A2C LV ejection fraction, 1-p 39 % 20 A2C LV end-diastolic volume, 99 ml 190 1-p A4C LV ejection fraction, 1-p 45 % 30 A4C LV e', lateral 0.094 m/sec LV E/e', lateral 7 LV e', medial 0.064 m/sec LV E/e', medial 10 LV e', average 0.079 m/sec LV E/e', average 8 Ventricular septum Value 07/12/2017 Reference IVS thickness, ED, PLAX 1.0 cm 1.0 LVOT Value 07/12/2017 Reference LVOT ID, A-P 2.1 cm 2.2 LVOT area 3.6 cm^2 3.8 LVOT peak velocity, S 0.91 m/sec 0.9 LVOT mean velocity, S 0.58 m/sec LVOT VTI, S 18.6 cm 16.1 LVOT peak gradient, S 3.3 mm Hg LVOT mean gradient, S 1.6 mm Hg 2 Stroke volume (SV), LVOT 67 ml DP Stroke index (SV/bsa), 27 ml/m^2 LVOT DP Aortic valve Value 07/12/2017 Reference Aortic valve peak 1.2 m/sec velocity, S Aortic valve mean 0.87 m/sec velocity, S Aortic valve VTI, S 22.0 cm Aortic mean gradient, S 3.3 mm Hg 3 Aortic peak gradient, S 6 mm Hg 5 VTI ratio, LVOT/AV 0.85 0.93 Aortic valve area, VTI 3.1 cm^2 3.6 Velocity ratio, peak, 0.75 LVOT/AV Aortic valve area, peak 2.7 cm^2 3.1 velocity Velocity ratio, mean, 0.66 LVOT/AV Aortic valve area, mean 2.4 cm^2 velocity Aortic valve area/bsa, 1 cm^2/m^2 mean velocity Aorta Value 07/12/2017 Reference Aortic root ID, ED 3.2 cm 3.2 Ascending aorta ID, A-P, S 3.0 cm 2.9 Left atrium Value 07/12/2017 Reference LA ID, A-P, ES 3.7 cm LA ID/bsa, A-P 1.5 cm/m^2 <=2.2 LA area, ES, A4C (H) 23.6 cm^2 29 8.8 - 23.4 LA area, ES, A2C 19 cm^2 LA volume/bsa, ES, 1-p A4C 29 ml/m^2 40 LA volume, ES, 2-p 66 ml LA volume/bsa, ES, 2-p 26 ml/m^2 LA/aortic root ratio 1.17 Mitral valve Value 07/12/2017 Reference Mitral E-wave peak 0.67 m/sec 1.02 velocity Mitral A-wave peak 0.68 m/sec velocity Mitral deceleration time (H) 258 ms 150 - 230 Mitral pressure half-time 75 ms 43 Mitral E/A ratio, peak 0.98 Mitral valve area, PHT, DP 2.9 cm^2 5.1 Tricuspid valve Value 07/12/2017 Reference Tricuspid regurg peak 2.2 m/sec 2.8 velocity Tricuspid peak RV-RA 20.2 mm Hg 31.1 gradient Right atrium Value 07/12/2017 Reference RA area, ES, A4C (H) 21.3 cm^2 15 8.3 - 19.5 Legend: (L) and (H) adonay values outside specified reference range. I have personally reviewed the images and have reviewed and edited the reported findings. Electronically signed by Gonzalo Wilson 05/15/2019 13:34
[2019-05-15] MEDS: Magnesium Oxide 400 MG TAB PO ×2 (11:59→19:16)
[2019-05-15] MEDS: Enoxaparin 40 MG/0.4 ML SYR SC (12:00)
[2019-05-15 13:52] LABS: Troponin I < 0.05 ng/mL (0.00-0.06)
[2019-05-15] MEDS: Insulin Aspart 300 UNITS/3 ML PEN SC (16:35)
--- NOTE | 2019-05-15 16:48 | HPE_ITS ---
Date of service: 05/15/19 Time of Service: 16:48 Assessment and Plan (1) Chest pain: Current visit: No Status: Resolved With history of NSTEMI with MADONNA placement in 2017. With ischemic cariomyopathy with LVEF on echo today of 40-45% with Akinesis of the apical myocardium. Moderate hypokinesis of the entireinferior myocardium. Moderate hypokinesis of the basalinferolateral myocardium. His troponin has been <0.05 x3. He will have stress test tomorrow. Nitro PRN. Continue home regimen including aspirin, plavix, metoprolol, lisinopril and statin. Qualifiers: Chest pain type: other chest pain Qualified Code(s): R07.89 - Other chest pain; R07.8 - Other chest pain (2) ASCVD (arteriosclerotic cardiovascular disease): Current visit: No Status: Chronic as above. (3) Type 2 diabetes mellitus with retinopathy, with long-term current use of insulin: Current visit: No Status: Chronic Poorly controlled, most recent Hgb A1c 13/8 in 01/2019. Continue home insulin regimen with U-500 insulin and aspart per sliding scale. Hold metformin. Continue ADA diet. adjust as needed. Repeat Hgb A1c in the morning. (4) Obstructive sleep apnea, adult: Current visit: No Status: Chronic Has CPAP but does not currently use CPAP. (5) Chronic HFrEF (heart failure with reduced ejection fraction): Current visit: No Status: Chronic Echo today shows LVEF of 40-45% with Akinesis of the apical myocardium. Moderate hypokinesis of the entireinferior myocardium. Moderate hypokinesis of the basalinferolateral myocardium. Appears euvolemic. For MPI tomorrow. (6) DVT prophylaxis: Current visit: Yes Status: Acute Subcutaneous lovenox. (7) Discharge planning issues: Current visit: Yes Status: Acute He is a FULL code. This case was discussed with Dr. Tobias who is in agreement. History of Present Illness Chief Complaint: Chest pain and shortness of breath Narrative: Ganesh Tang is a 53-year-old man with a past medical history significant for coronary artery disease, status post and STEMI with drug-eluting stent to LAD at [facility] in 06/2017, with ischemic cardiomyopathy with previous echo from 2017 showing LVEF of 30 to 35%, type 2 diabetes with diabetic retinopathy, obstructive sleep apnea, does not use CPAP, hyperlipidemia, hypertension and depression. He presented to the emergency department today with chest pain that woke him up in the night and worsened this morning with associated shortness of breath. He described the pain as severe and reminiscent of his previous myocardial infarction. In the emergency department, he had negative troponins x2, his EKG showed normal sinus rhythm with a heart rate in the 80s, no acute ST changes as compared to prior. He had a CTA which was negative. His labs were unremarkable. His vital signs are stable. He was admitted to the [facility] floor to continue to trend his troponins, for echocardiogram and stress test. His repeat echocardiogram today showed his LVEF improved to 40 to 45% with Akinesis of the apical myocardium. Moderate hypokinesis of the entireinferior myocardium. Moderate hypokinesis of the basalinferolateral myocardium. His third troponin was <0.05. At the time of his admission to the [facility], he denies any chest pain at all, no shortness of breath, chest pressure or palpitations. He denies GERD, he is a nonsmoker, he has been eating and drinking without nausea, vomiting or diarrhea. A full review of systems was obtained and was otherwise negative. He will be monitored overnight on telemetry with MPI tomorrow. Of note, he has been seen by [facility] cardiology in the past, and it has been approximately 1 year since his last visit. Review of Systems Review of Systems All systems reviewed & are unremarkable except as noted in HPI and below PFSH Medical History Hyperuricemia (Inactive) Adult BMI > 30 (Chronic) Microalbuminuria (Chronic) Callus of foot (Chronic) Type 2 diabetes mellitus with retinopathy, with long-term current use of insulin (Chronic 10/27/17) Tubular adenoma of colon (Inactive 10/18/14) Sensorineural hearing loss, bilateral (Chronic 11/24/17) Restless leg syndrome (Chronic 10/31/14) Pulmonary hypertension (Chronic 07/14/17) Obstructive sleep apnea, adult (Chronic 10/31/14) Nonproliferative diabetic retinopathy (Chronic) Noncompliance with medication regimen (Chronic 07/06/13) NSTEMI (non-ST elevated myocardial infarction) (Inactive 07/11/17) Hyperlipidemia (Chronic 07/06/13) Erectile dysfunction (Chronic 07/06/13) Essential hypertension (Chronic 07/06/13) Elevated ferritin level (Chronic 10/20/17) Depression (Chronic 11/25/11) Conductive hearing loss (Chronic 07/06/13) Chronic HFrEF (heart failure with reduced ejection fraction) (Chronic 07/20/18) ASCVD (arteriosclerotic cardiovascular disease) (Chronic 07/28/17) Surgical History S/P coronary artery stent placement (Inactive) Cholecystectomy (Resolved) Colonoscopy - IV Sedation (Resolved 10/14/14) Family History Mother Essential hypertension Father Lung cancer Social History Smoking/Tobacco Use Status: Never Alcohol Intake: never Drug use: Never Substance use type: does not use Household members: spouse Housing: apartment Number of Children: 1 Communication Needs: None 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 Pets and animals: No Current gender identity: male What type of physical activity do you participate in: other Details: skiing Frequency: other 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 service parts driver: No Do you feel safe at home: Yes Do you feel safe in your relationship?: Yes Meds Home Medications Medication Instructions Recorded Confirmed Type [place] USATouch Ultra Test #350 strip 08/16/17 05/15/19 Rx lancets #350 ea 08/24/17 05/15/19 Rx pen needle, diabetic #300 03/02/18 05/15/19 History lisinopril 5 mg tablet 5 mg PO DAILY #90 tab-cap 09/13/18 05/15/19 Rx sertraline 100 mg tablet 100 mg PO DAILY #90 tab-cap 09/13/18 05/15/19 Rx metformin 1,000 mg tablet 1,000 mg PO BID #180 tab-cap 12/08/18 05/15/19 Rx nitroglycerin 0.4 mg sublingual 0.4 mg SL Q5M PRN #30 tab-cap MDD 01/08/19 05/15/19 Rx tablet 3 doses aspirin 81 mg chewable tablet 81 mg PO DAILY #90 tab-cap 01/18/19 05/15/19 Rx rosuvastatin [Crestor] 40 mg PO HS 02/13/19 05/15/19 History Jardiance 25 mg PO DAILY 02/15/19 05/15/19 History clopidogrel [Plavix] 75 mg PO DAILY #30 tab 02/15/19 05/15/19 Rx metoprolol succinate ER 100 mg 150 mg PO DAILY tab 03/05/19 05/15/19 History tablet,extended release 24 hr insulin aspart U- 100 100 unit/mL See Rx Instructions SC AC #15 ml 03/14/19 05/15/19 Rx subcutaneous pen insulin regular human U-500 See Rx Instructions SC QAM 03/14/19 05/15/19 History concentrate 500 unit/mL(3 mL) subcut pen flash glucose sensor kit #1 each 05/03/19 05/15/19 Rx Allergies Allergy/AdvReac Type Severity Reaction Status Date / Time bee venom protein (honey bee) Allergy Severe Swelling/Ed Verified 03/14/19 15:11 capri Penicillins Allergy Unknown Rash Verified 03/14/19 15:11 shellfish derived Allergy Unknown Rash; Verified 03/14/19 15:11 swelling Exam Narrative Exam Narrative: General: male, appears older than stated age, overweight, alert and oriented x3, no acute distress. HEENT: Normocephalic, atraumatic, pupils equal and round, extraocular movements intact, mucous membranes moist. Neck: Supple, no JVD. Cardiovascular: Heart has regular rate and rhythm, no murmur appreciated. Respiratory: Respirations even and unlabored, lung sounds clear to auscultation throughout. Gastrointestinal: Normoactive bowel sounds throughout, abdomen soft, nontender on palpation. Extremities: No clubbing, cyanosis or edema. Results Labs : 05/15/19 06:10 05/15/19 06:10 Laboratory Results - last 24 hr 05/15/19 05/15/19 05/15/19 06:10 06:10 06:10 WBC 7.00 RBC 4.91 Hgb 15.1 Hct 42.4 MCV 86.4 MCH 30.8 MCHC 35.6 RDW 12.3 Plt Count 230 MPV 9.4 Immature Gran % 0.1 Neutrophils % 55.8 Lymphocytes % 29.9 Monocytes % 10.9 Eosinophils % 3.0 Basophils % 0.3 Absolute Neutrophils 3.91 Absolute Lymphocytes 2.09 Absolute Monocytes 0.76 H Absolute Eosinophils 0.21 Absolute Basophils 0.02 PT 11.0 INR 1.1 APTT 28.1 Sodium 137 Potassium 4.5 Chloride 103 Carbon Dioxide 23.5 Anion Gap 10.5 BUN 26 H Creatinine 0.95 Estimated GFR/1.73 m2 >= 60.00 Glucose 281 H Calcium 9.2 Magnesium 1.6 L Total Bilirubin 0.5 AST 33 ALT 51 Alkaline Phosphatase 152 H Troponin I < 0.05 NT-Pro-B Natriuret Pep 237 Total Protein 7.1 Albumin 3.8 05/15/19 05/15/19 09:00 13:15 WBC RBC Hgb Hct MCV MCH MCHC RDW Plt Count MPV Immature Gran % Neutrophils % Lymphocytes % Monocytes % Eosinophils % Basophils % Absolute Neutrophils Absolute Lymphocytes Absolute Monocytes Absolute Eosinophils Absolute Basophils PT INR APTT Sodium Potassium Chloride Carbon Dioxide Anion Gap BUN Creatinine Estimated GFR/1.73 m2 Glucose Calcium Magnesium Total Bilirubin AST ALT Alkaline Phosphatase Troponin I < 0.05 < 0.05 NT-Pro-B Natriuret Pep Total Protein Albumin Last Vital Signs Temp 36.7 C 05/15/19 15:00 Pulse 75 05/15/19 15:00 Resp 28 H 05/15/19 15:00 BP 105/78 05/15/19 15:00 Pulse Ox 98 05/15/19 15:00
[2019-05-15] MEDS: Rosuvastatin 10 MG TAB 40 MG PO (21:32)
[2019-05-16] VITALS (9 sets, daily range): BP systolic 98–114; BP diastolic 70–88; PULSE 73–110; RESP 17–18; TEMP 35.9–36.5; O2SAT 97–98
[2019-05-16 07:18] LABS: HGB 14.6 g/dL (13.5-17.5); Mean Corp. HGB Concentration 34.8 g/dL (32.0-36.0); Mean Corpuscular Hemoglobin 30.4 pg (27.0-33.0); Mean Corpuscular Volume 87.3 fL (80-95); Mean Platelet Volume 9.3 fL (8.0-11.0); Platelet Count 218 x1000/uL (130-400); RBC 4.81 m/cumm (4.50-6.00); RBC Distribution Width 12.5 % (11.8-14.1); White Blood Cell Count 6.13 k/cumm (4.4-10.8)
[2019-05-16 07:30] LABS: Anion Gap 8.5 mmol/L (3-11); BUN 22 mg/dL (7-18); CO2 24.5 mmol/L (21.0-32.0); CREATININE 0.79 mg/dL (0.70-1.30); Calcium 8.8 mg/dL (8.5-10.1); Chloride 104 mmol/L (98-107); Glucose 154 mg/dL (70-100); Magnesium 1.6 mg/dL (1.8-2.4); Potassium 4.6 mmol/L (3.5-5.1); Sodium 137 mmol/L (136-145)
--- NOTE | 2019-05-16 09:30 | MERGEMPI_ITS ---
*[facility]* *[facility]* [address] [place] [address] Myocardial Perfusion Imaging - SPECT Fercho protocol Date of study: 05/16/2019 *PATIENT PRESENTATION* Height: 180.3cm (71in) Blood Pressure: Weight: 118.6kg (261lb) BSA: 2.48m^2 Referring physician: Lisa Arredondo Ordering physician: Lisa Arredondo Impressions: Normal myocardial perfusion and contraction after pharmacological stress. Summary: 1. Myocardial perfusion imaging: No myocardial perfusion defects noted. 2. The calculated left ventricular ejection fraction after stress: 51%. LV global systolic function is low normal. 3. Stress ECG conclusions: The stress ECG is negative. 4. Imaging information: gated. Image quality reduced due to diaphragmatic attenuation. Attenuation correction used. Indication: R07.9, Appropriate Use Criteria: A (Appropriate). History: REASON FOR TESTING: ADMITTED 05/15/19 TO [facility] FOR CHEST PAIN. SHARP PAINTO LESFT CHEST WITH ASSOCIATED SHORTNESS OF BREATH. PAIN DID NOT RADIATE. LAST MPI 02/19/2019- SEE REPORT IN [facility]. PMH: NSTEMI WITH MADONNA TO LAD IN 2017. ASCVD, TYPE 2 DM WITH RETINOPATHY, VIVIANE BUT DOES NOT USE CPAP, CHRONIC HEART FAILURE WITH REDUCED EF. (SEE ECHO REPORT FROM 05/15/19.) HYPERTENSION, HYPERLIPIDEMIA,DEPRESSION, TUBULAR ADENOMA OF COLON, PULMONARY HYPERTENSION, RESTLESS LEG SYNDROME. FAMILY HX: MOTHER- HYPERTENSION. SMOKING: NEVER. EXCERCISE:NO REGULAR EXCERCISE. STARTED WORKING IN [employer] 1 WEEK AGO. Risk factors: Hypertension. Diabetes mellitus. Obesity. Dyslipidemia. Cholesterol: 112mg/dl. HDL: 35mg/dl. LDL: 50mg/dl. Triglycerides: 182mg/dl. ALLERGIES: BEE VENOM, PENICILLINS, SHELLFISH. MEDICATIONS: REGULAR INSULIN U-500 DIRECTED, SERTRALINE 100 MG DAILY, ROSUVASTATIN 40 MG HS, NITROGLYCERIN 0.4 MG DIRECTED, METOPROLOL SUCCINATE ER 150 MG DAILY, METFORMIN 1000 MG BID, LISINOPRIL 5 MG DAILY, CLOPIDOGREL 75 MG DAILY, ASPIRIN 81 MG DAILY, JARDIANCE 25 MG DAILY. Imaging Technique: Protocol: Fercho protocol. Acquisition: Gated SPECT; 1 day - rest/stress. The patient was imaged in the supine position. Attenuation correction used. Isotope administration: - Rest. Tc[99m]-sestamibi. Dose: 12.5mCi. Injection time: 09:30 AM. Injection to stress time: 00:45. - Stress. Tc[99m]-sestamibi. Dose: 37mCi. Injection time: 10:30 AM. 1-2 min before end of exercise Baseline ECG: LAST EKG 05/15/19=SINUS RHYTHM, OLD INFERIOR INFARCT. TODAY'S EKG- SINUS RHYTHM , LAD LAFB, ABNORMAL R-WAVE PROGRESSION. Normal ECG. Stress protocol: +--------+---+ + + !Stage !HR !BP (mmHg) !Comments ! +--------+---+ + + !Baseline!92 !126/88 (101)! ! +--------+---+ + + !1 min !103!120/58 (79) !Inject Regadenoson.! +--------+---+ + + !3 min !110!118/70 (86) ! ! +--------+---+ + + !6 min !107!118/76 (90) ! ! +--------+---+ + + * Stress results: The rate-pressure product for the peak heart rate and blood pressure was 92913ah Hg/min. Stress ECG: LEXISCAN TESTING ENDED IN 6 MINS THE MEDICATION EFFECT NO LONGER PRESENT. MAX HR WAS 114, WITH A NORMAL BLOOD PRESSURE RESPONSE. ECTOPY: NONE SEEN. ANGINA: NO REPORTED CHEST PAIN OR PRESSURE. ISCHEMIA: NO ISCHEMIC CHANGES NOTED. The stress ECG is negative. Myocardial perfusion: Imaging information: gated. Image quality reduced due to diaphragmatic attenuation. Left ventricular size is normal. No myocardial perfusion defects noted. Ventricular Function (Wall Motion): The calculated left ventricular ejection fraction after stress: 51%. LV global systolic function is low normal. Study data: Gonzalo Wilson MD supervised and was readily available during the procedure. This study was interpreted by [facility]. Study status: Routine. Consent: The risks, benefits, and alternatives to the procedure were explained to the patient and informed consent was obtained. Procedure: Initial setup. A baseline ECG was recorded. Surface ECG leads and manual cuff blood pressure measurements were monitored. Heart sounds: Normal. Lung sounds: Normal. Regadenoson stress test. Stress testing was performed, with regadenoson infusion. Study completion: All catheters inserted during the procedure were removed. The patient tolerated the procedure well and was discharged from the lab. Discharge: The patient left the laboratory in stable condition. Birthdate: Patient birthdate: 1965. Sex: Gender: male. Study date: Study date: 05/16/2019. Study time: 00:01 AM. Signature Documentation: - The imaging portion of this study was interpreted by Nuclear Canvass Manager Gonzalo Wilson MD. - The imaging portion of this study was interpreted by Nuclear Radiologist Gerry Santiago MD. - The Stress ECG portion of this study was interpreted by Gonzalo Wilson MD. Electronically signed by Gonzalo Wilson 05/16/2019 12:59
--- NOTE | 2019-05-16 09:54 | PDOC.CMIN ---
- If Service Date Differs Date of service: 05/16/19 Time of Service: 09:54 Care Management Initial Assess REASON FOR HOSPITALIZATION:: chest pain PAST MEDICAL HISTORY/PAST SURGICAL HISTORY:: Medical History: Hyperuricemia (Inactive). Adult BMI > 30 (Chronic). Microalbuminuria (Chronic). Callus of foot (Chronic). Type 2 diabetes mellitus with retinopathy, with long-term current use of insulin (Chronic 10/27/17). Tubular adenoma of colon (Inactive 10/18/14). Sensorineural hearing loss, bilateral (Chronic 11/24/17). Restless leg syndrome (Chronic 10/31/14). Pulmonary hypertension (Chronic 07/14/17). Obstructive sleep apnea, adult (Chronic 10/31/14). Nonproliferative diabetic retinopathy (Chronic). Noncompliance with medication regimen (Chronic 07/06/13). NSTEMI (non-ST elevated myocardial infarction) (Inactive 07/11/17). Hyperlipidemia (Chronic 07/06/13). Erectile dysfunction (Chronic 07/06/13). Essential hypertension (Chronic 07/06/13). Elevated ferritin level (Chronic 10/20/17). Depression (Chronic 11/25/11). Conductive hearing loss (Chronic 07/06/13). Chronic HFrEF (heart failure with reduced ejection fraction) (Chronic 07/20/18). ASCVD (arteriosclerotic cardiovascular disease) (Chronic 07/28/17). Surgical History: S/P coronary artery stent placement (Inactive). Cholecystectomy (Resolved). Colonoscopy - IV Sedation (Resolved 10/14/14) PREVIOUS FUNCTIONAL STATUS/SOCIAL/FAMILY SUPPORTS:: Edward lives in [facility] in a first floor apartment with his . 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 He is independent with self care and all activities. Edward did share that he is considering disability because he finds that he doesn not have the stamina he used to following his cardiac problems. CURRENT FUNCTIONAL STATUS:: Edward was sitting up in bed during CM visit. He was pleasant and readily engaged in conversation. He expects to be discharged later today. ADVANCE DIRECTIVES:: On file at [facility]. JAMARCUS Tang [phone] Has patient been provided with information about the portal?: Yes Did the patient sign up for the portal?: No CODE STATUS:: Full Code INSURANCE COVERAGE / FINANCIAL ISSUES:: Medicaid Vt. Financial Assist 100 CURRENT HOME/COMMUNITY SERVICES/EQUIPMENT:: none currently PRIMARY CARE PHYSICIAN:: Camilla Sherman POTENTIAL DISCHARGE NEEDS:: follow up with PCP and discharge plan of care PATIENT/FAMILY EDUCATION NEEDS:: Discharge plan, limitations, folow up plan, Ask Me Three ANTICIPATED BARRIERS TO DISCHARGE:: none identified TRANSPORTATION:: via private vehicle with family when ready PLAN:: Edward will be discharged home with no new services. He will be transported by family via private vehicle. He will follow up with his PCP and hat lining blocker and discharge plan of care.
--- NOTE | 2019-05-16 10:17 | INITIAL_ITS ---
- If Service Date Differs Date of service: 05/16/19 Time of Service: 09:54 Care Management Initial Assess REASON FOR HOSPITALIZATION:: chest pain PAST MEDICAL HISTORY/PAST SURGICAL HISTORY:: Medical History: Hyperuricemia (Inactive). Adult BMI > 30 (Chronic). Microalbuminuria (Chronic). Callus of foot (Chronic). Type 2 diabetes mellitus with retinopathy, with long-term current use of insulin (Chronic 10/27/17). Tubular adenoma of colon (Inactive 10/18/14). Sensorineural hearing loss, bilateral (Chronic 11/24/17). Restless leg syndrome (Chronic 10/31/14). Pulmonary hypertension (Chronic 07/14/17). Obstructive sleep apnea, adult (Chronic 10/31/14). Nonproliferative diabetic retinopathy (Chronic). Noncompliance with medication regimen (Chronic 07/06/13). NSTEMI (non-ST elevated myocardial infarction) (Inactive 07/11/17). Hyperlipidemia (Chronic 07/06/13). Erectile dysfunction (Chronic 07/06/13). Essential hypertension (Chronic 07/06/13). Elevated ferritin level (Chronic 10/20/17). Depression (Chronic 11/25/11). Conductive hearing loss (Chronic 07/06/13). Chronic HFrEF (heart failure with reduced ejection fraction) (Chronic 07/20/18). ASCVD (arteriosclerotic cardiovascular disease) (Chronic 07/28/17). Surgical History: S/P coronary artery stent placement (Inactive). Cholecystectomy (Resolved). Colonoscopy - IV Sedation (Resolved 10/14/14) PREVIOUS FUNCTIONAL STATUS/SOCIAL/FAMILY SUPPORTS:: Edward lives in [facility] in a first floor apartment with his . 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 He is independent with self care and all activities. Edward did share that he is considering disability because he finds that he doesn not have the stamina he used to following his cardiac problems. CURRENT FUNCTIONAL STATUS:: Edward was sitting up in bed during CM visit. He was pleasant and readily engaged in conversation. He expects to be discharged later today. ADVANCE DIRECTIVES:: On file at [facility]. JAMARCUS Tang [phone] Has patient been provided with information about the portal?: Yes Did the patient sign up for the portal?: No CODE STATUS:: Full Code INSURANCE COVERAGE / FINANCIAL ISSUES:: Medicaid Vt. Financial Assist 100 CURRENT HOME/COMMUNITY SERVICES/EQUIPMENT:: none currently PRIMARY CARE PHYSICIAN:: Camilla Sherman POTENTIAL DISCHARGE NEEDS:: follow up with PCP and discharge plan of care PATIENT/FAMILY EDUCATION NEEDS:: Discharge plan, limitations, folow up plan, Ask Me Three ANTICIPATED BARRIERS TO DISCHARGE:: none identified TRANSPORTATION:: via private vehicle with family when ready PLAN:: Edward will be discharged home with no new services. He will be transported by family via private vehicle. He will follow up with his PCP and coal tram driver and discharge plan of care.
[2019-05-16] MEDS: Regadenoson 0.4 MG/5 ML SYR IVP (11:03)
[2019-05-16] MEDS: Enoxaparin 40 MG/0.4 ML SYR SC (11:33)
[2019-05-16] MEDS: Pantoprazole 40 MG TABCR PO (11:34)
[2019-05-16] MEDS: Aspirin 81 MG CHEW PO (11:34)
[2019-05-16] MEDS: Sertraline 50 MG TAB 100 MG PO (11:35)
[2019-05-16] MEDS: Clopidogrel 75 MG TAB PO (11:35)
[2019-05-16] MEDS: Magnesium Oxide 400 MG TAB PO (11:35)
[2019-05-16] MEDS: Metoprolol CR 50 MG TABCR 150 MG PO (11:35)
[2019-05-16] MEDS: MAGNESIUM SULFATE 2 GM/50 ML BAG IVPB (11:36)
[2019-05-16] MEDS: Lisinopril 5 MG TAB PO (11:36)
[2019-05-16] MEDS: Normal Saline Flush 10 ML SYR IVP (11:37)
[2019-05-16] MEDS: Insulin Aspart 300 UNITS/3 ML PEN SC (11:46)
[2019-05-16] MEDS: Normal Saline 500 ML 30 ML IVPB (11:57)
--- NOTE | 2019-05-16 15:10 | CHAPLAIN ---
Ganesh said he hadn't seen a doctor yet, when I visited this morning, so he was unsure what that plans are for him. He is listed as being a member of the [facility] [employer], but said he no longer attends there. He was not interested in a longer conversation.
--- NOTE | 2019-05-16 15:44 | DSE_ITS ---
Date of service: 05/16/19 Time of Service: 15:44 DS: Diagnosis Discharge Diagnosis (1) Chest pain: Status: Resolved (2) ASCVD (arteriosclerotic cardiovascular disease): Status: Chronic (3) Type 2 diabetes mellitus with retinopathy, with long-term current use of insulin: Status: Chronic (4) Obstructive sleep apnea, adult: Status: Chronic (5) Chronic HFrEF (heart failure with reduced ejection fraction): Status: Chronic Discharge Plan Disposition Patient Disposition: HOME Condition: Stable Discharge Details Reason For Visit: CHEST PAIN, ECG CHANGE Admit Date/Time: 05/15/19 09:51 Admit Provider: Mars Tobias Attending Provider: Mars Tobias Primary Care Provider: Camilla Sherman Hospital Course Hospital Course: Ganesh Tang is a 53-year-old man with a past medical history significant for coronary artery disease, status post and STEMI with drug-eluting stent to LAD at [facility] in 06/2017, with ischemic cardiomyopathy with previous echo from 2017 showing LVEF of 30 to 35%, type 2 diabetes with diabetic retinopathy, obstructive sleep apnea, does not use CPAP, hyperlipidemia, hypertension and depression. He presented to the emergency department yesterday with chest pain that woke him up in the night and worsened in the morning with associated shortness of breath. He described the pain as severe and reminiscent of his previous myocardial infarction. In the emergency department, he had negative troponins x2, his EKG showed normal sinus rhythm with a heart rate in the 80s, no acute ST changes as compared to prior. He had a CTA which was negative. His labs were unremarkable. His vital signs are stable. He was admitted to the [facility] floor to continue to trend his troponins, for echocardiogram and stress test. His echocardiogram showed an improved LEVF from previous in 2017, of 40-45% with Akinesis of the apical myocardium. Moderate hypokinesis of the entireinferior myocardium. Moderate hypokinesis of the basalinferolateral myocardium. His troponins were <0.05 x3. He had no chest pain throughout his overnight stay. He was monitored on telemetry and in sinus rhythm in 70s-90s. He went on to have an MPI which was negative. He had no further chest pain. He is on aspirin and plavix and has not been on a PPI. He was started on started on Protonix. It is possible that his chest pain could represent GERD. He will be continued on PPI therapy at the time of discharge. Of note, he had what appeared to be a possible IV infiltration to his right forearm. Given that he had a Lexiscan, this was discussed with Radiology due to the concern for skin/tissue injury. Pantera in Radiology stated that he actually flushed the IV himself and administrated the medications for the Lexiscan and he reports that the site flushed well prior to and after the medication. He did not feel that it was likely that if this is an infiltration that it happened during the MPI. He is advised to monitor the site closely, apply warm and cool compresses, elevated and contact his PCP or return to the ED if the site changes. His diabetes was fairly well controlled while at the hospital. His previous Hgb A1c was elevated at 13.8. A repeat A1c was pending at the time of discharge. He will follow up with his PCP and cardiology. Home Meds and New Rx's Prescriptions: New magnesium oxide 400 mg (241.3 mg magnesium) Tablet 400 mg PO DAILY Qty: 7 RF: 0 pantoprazole 40 mg Tablet,Delayed Release (Dr/Ec) 40 mg PO DAILY@0730 Qty: 30 RF: 0 Continued Novolog Flexpen U-100 Insulin 100 unit/mL insulin pen See Rx Instructions SC AC Qty: 15 RF: 3 insulin regular hum U-500 conc 500 unit/mL (3 mL) insulin pen See Patient Comments SC QAM RF: 0 OneTouch Ultra Test 1 EACH strip 1 ea Miscellaneous AC & HS Qty: 350 RF: 3 lancets 1 EACH misc 1 ea Miscellaneous QID Qty: 350 RF: 3 pen needle, diabetic 1 EACH needle Miscellaneous TID Qty: 300 RF: 3 lisinopril 5 mg tablet 5 mg PO DAILY Qty: 90 RF: 3 sertraline [Zoloft] 100 mg tablet 100 mg PO DAILY Qty: 90 RF: 3 metformin 1,000 mg tablet 1,000 mg PO BID Qty: 180 RF: 3 nitroglycerin 0.4 mg tablet, sublingual 0.4 mg SL Q5M MDD 3 doses PRN (Reason: chest pain) Qty: 30 RF: 0 aspirin 81 mg tablet,chewable 81 mg PO DAILY Qty: 90 RF: 3 metoprolol succinate 100 mg tablet extended release 24 hr 150 mg PO DAILY RF: 0 FreeStyle Flako 14 Day Sensor kit .ROUTE .MEDSUPPLY Qty: 1 RF: 0 rosuvastatin [Crestor] 40 mg tablet 40 mg PO HS RF: 0 Jardiance 25 mg Tablet 25 mg PO DAILY RF: 0 clopidogrel [Plavix] 75 mg Tablet 75 mg PO DAILY Qty: 30 RF: 0 Discharge Instructions Instructions: Chest Pain (ED), Gastroesophageal Reflux Disease (DC) Additional Instructions: Your MPI was negative. Follow up with your PCP and cardiology as scheduled. Continue taking Magnesium for 1 week. Take Protonix every day. Elevate your Right arm and apply warm and cool compresses. Monitor your arm, if you notice skin changes, return to the ED or have your PCP evaluate it. Referrals: Mar Goncalves NP [NURSE PRACTITIONER] - 05/22/19 11:30 am Activity:: Activity as Tolerated Equipment/Supplies:: No Equipment Needed Diet:: Carb Counting Discharge Orders Discharge Orders: Discharge Order (Routine); Ordered 05/16/19 Ordered By: Lisa Arredondo Exam Narrative Exam Narrative: General: male, appears older than stated age, overweight, alert and oriented x3, no acute distress. HEENT: Normocephalic, atraumatic, pupils equal and round, extraocular movements intact, mucous membranes moist. Neck: Supple, no JVD. Cardiovascular: Heart has regular rate and rhythm, no murmur appreciated. Respiratory: Respirations even and unlabored, lung sounds clear to auscultation throughout. Gastrointestinal: Normoactive bowel sounds throughout, abdomen soft, nontender on palpation. Extremities: No clubbing, cyanosis or edema. DS: Data Vitals/I&O Vitals and I&O: Vital Signs Temperature 36.2 C L 05/16/19 11:23 Temperature Source Tympanic 05/16/19 11:23 Pulse 82 05/16/19 14:49 Pulse Rhythm Regular 05/16/19 07:27 Pulse 80 05/15/19 10:01 Respiratory Rate 17 05/16/19 11:23 Respiratory Effort Non-Labored 05/16/19 07:27 Respiratory Depth Normal 05/16/19 07:27 Respiratory Pattern Normal 05/16/19 07:27 Blood Pressure 114/88 05/16/19 11:23 Blood Pressure Mean 105 05/15/19 10:01 Blood Pressure Position Sitting 05/15/19 06:07 Pulse Oximetry 98 05/16/19 11:23 Oxygen Delivery Method Room Air 05/16/19 11:23 Oxygen Flow Rate 0 05/16/19 11:23 Pain Level 0 05/15/19 19:28 Intake & Output 05/15/19 05/16/19 05/16/19 23:59 11:59 23:59 Intake Total 490 / 490 Balance 490 / -110 Weight 114.8 kg Intake: IV Oral 480 / 480 Other: Urine Color Yellow Urine Appearance Clear Comment Patient reports voiding. This RN did not assess void. Voiding Methods Toilet Completed studies during hospitalization [Text1]: 05/15/19: CHEST CT FOR PULMONARY EMBOLISM: CT angiography was performed with multi slice acquisition and multi planar and 3D reconstruction. There is no evidence of pulmonary emboli or aortic dissection There is mild aortic and coronary artery calcifications. The aorta is normal in diameter. No pleural or pericardial effusions or infiltrates are seen. There is no evidence of adenopathy. The patient is status post cholecystectomy. The upper portions of the liver and spleen are unremarkable. Degenerative changes are seen in the lower thoracic spine. IMPRESSION: No evidence of pulmonary emboli or other acute abnormality. Date of study: 05/15/2019 Transthoracic Echocardiography M-mode, complete 2D, complete spectral Doppler, and color Doppler *STUDY CONCLUSIONS* Summary: 1. Left ventricle: The cavity size was normal. Wall thickness was normal. Systolic function was mildly to moderately reduced. The estimated ejection fraction was 40-45%. Akinesis of the apical myocardium. Moderate hypokinesis of the entireinferior myocardium. Moderate hypokinesis of the basalinferolateral myocardium. 2. Right ventricle: The cavity size was normal. Wall thickness was normal. Systolic function was normal. Date of study: 05/16/2019 *PATIENT PRESENTATION* Height: 180.3cm (71in) Blood Pressure: Weight: 118.6kg (261lb) BSA: 2.48m^2 Referring physician: Lisa Arredondo Ordering physician: Lisa Arredondo Impressions: Normal myocardial perfusion and contraction after pharmacological stress. Summary: 1. Myocardial perfusion imaging: No myocardial perfusion defects noted. 2. The calculated left ventricular ejection fraction after stress: 51%. LV global systolic function is low normal. 3. Stress ECG conclusions: The stress ECG is negative. 4. Imaging information: gated. Image quality reduced due to diaphragmatic attenuation. Attenuation correction used. Labs on day of discharge: Labs from last 24 hours 05/16/19 05/16/19 05/16/19 06:46 06:46 06:46 WBC 6.13 RBC 4.81 Hgb 14.6 Hct 42.0 MCV 87.3 MCH 30.4 MCHC 34.8 RDW 12.5 Plt Count 218 MPV 9.3 Sodium 137 Potassium 4.6 Chloride 104 Carbon Dioxide 24.5 Anion Gap 8.5 BUN 22 H Creatinine 0.79 Estimated GFR/1.73 m2 >= 60.00 Glucose 154 H D Hemoglobin A1c Pending Calcium 8.8 Magnesium 1.6 L [facility] Medical History Hyperuricemia (Inactive) Adult BMI > 30 (Chronic) Microalbuminuria (Chronic) Callus of foot (Chronic) Type 2 diabetes mellitus with retinopathy, with long-term current use of insulin (Chronic 10/27/17) Tubular adenoma of colon (Inactive 10/18/14) Sensorineural hearing loss, bilateral (Chronic 11/24/17) Restless leg syndrome (Chronic 10/31/14) Pulmonary hypertension (Chronic 07/14/17) Obstructive sleep apnea, adult (Chronic 10/31/14) Nonproliferative diabetic retinopathy (Chronic) Noncompliance with medication regimen (Chronic 07/06/13) NSTEMI (non-ST elevated myocardial infarction) (Inactive 07/11/17) Hyperlipidemia (Chronic 07/06/13) Erectile dysfunction (Chronic 07/06/13) Essential hypertension (Chronic 07/06/13) Elevated ferritin level (Chronic 10/20/17) Depression (Chronic 11/25/11) Conductive hearing loss (Chronic 07/06/13) Chronic HFrEF (heart failure with reduced ejection fraction) (Chronic 07/20/18) ASCVD (arteriosclerotic cardiovascular disease) (Chronic 07/28/17) Surgical History S/P coronary artery stent placement (Inactive) Cholecystectomy (Resolved) Colonoscopy - IV Sedation (Resolved 10/14/14) Family History Mother Essential hypertension Father Lung cancer Social History Smoking/Tobacco Use Status: Never Alcohol Intake: never Drug use: Never Substance use type: does not use Household members: spouse Housing: apartment Number of Children: 1 Communication Needs: None 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
--- NOTE | 2019-05-16 16:18 | PDOC.CMDIS ---
- If Service Date Differs Date of service: 05/16/19 Time of Service: 16:18 LACE Index Scoring Tool - Questions: Length of Stay (in days): 1 Acuity (Admit via E.D.?): Yes Comorbidities: Previous M.I., Diabetes w/o Complication, Congestive Heart Failure E.D. Visits: 4 - Answers: Total Score: 13 Risk of Readmission: High Risk Care Management Discharge Reason for Hospitalization: chest pain Discharge Plan: Edward will be discharged home with no new services. He will be transported by family via private vehicle. 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 Patient/Family Education Needs: Discharge plan, limitations, follow up plan and Ask Me Three.
--- NOTE | 2019-05-16 16:23 | CMDISCH_ITS ---
- If Service Date Differs Date of service: 05/16/19 Time of Service: 16:18 LACE Index Scoring Tool - Questions: Length of Stay (in days): 1 Acuity (Admit via E.D.?): Yes Comorbidities: Previous M.I., Diabetes w/o Complication, Congestive Heart Failure E.D. Visits: 4 - Answers: Total Score: 13 Risk of Readmission: High Risk Care Management Discharge Reason for Hospitalization: chest pain Discharge Plan: Edward will be discharged home with no new services. He will be transported by family via private vehicle. He will follow up with his PCP and client professional and discharge plan of care. Patient/Family Education Needs: Discharge plan, limitations, follow up plan and Ask Me Three.
[2019-05-17 08:34] LABS: Hemoglobin A1C 7.7 % (4.5-6.2)
== END 2019-05-16 18:00 | disposition home or self-care (01) ==
LOC: ER 10:10 → MS 10:33
PROVIDERS: Emergency Medicine; Nurse Practitioner; Admitting Provider Internal Medicine; Emergency Provider Student in an Organized Health Care Education/Training Program; PCP Nurse Practitioner Family; Visit Provider Internal Medicine
DX: R07.89 Other chest pain (principal); I25.10 Atherosclerotic heart disease of native coronary artery without angina pectoris; E11.319 Type 2 diabetes mellitus with unspecified diabetic retinopathy without macular edema; G47.33 Obstructive sleep apnea (adult) (pediatric); I50.22 Chronic systolic (congestive) heart failure; I25.2 Old myocardial infarction; Z95.5 Presence of coronary angioplasty implant and graft; I25.5 Ischemic cardiomyopathy; I11.0 Hypertensive heart disease with heart failure; E78.5 Hyperlipidemia, unspecified; Z79.4 Long term (current) use of insulin
CPT/HCPCS: 36410; 36415; 71275; 78452; 80048; 80053; 85027; 93005; 96374; 99222; 99239; 99285; J1650; 83036; 83735; 83880; 84484; 85025; 85610; 85730; 93010; 93017; 93306; 99217; 99219; G0378; J2785; J3010; J3490

== ENCOUNTER 2019-07-19 21:46 | Emergency (ER) | payer MEDICAID, SELFPAY ==
[2019-07-19 21:52] VITALS: BP 125/69; PULSE 85; RESP 16; TEMP 36.4; O2SAT 97
--- NOTE | 2019-07-19 22:34 | DI.RAD_ITS ---
SYMPTOM/DIAGNOSIS: DIABETIC, PLANTAR FOOT INFECTION RIGHT FOOT: There is soft tissue swelling over the metatarsal region. No foreign body is seen. There is no evidence of fracture or bony erosions. IMPRESSION: Soft tissue swelling.
--- NOTE | 2019-07-19 22:45 | ED.GENADUL_ITS ---
Discharge Plan Disposition Patient Disposition: HOME Condition: Stable Discharge Details Chief Complaint: Cellulitis Clinical Impression: Diabetic infection of right foot Primary Care Provider: Camilla Sherman ED Provider: Amauri Malone Home Meds and New Rx's Prescriptions: New clindamycin HCl 150 mg capsule 450 mg PO TID 10 Days Qty: 90 RF: 0 Continued Victoza 3-Alfonso 0.6 mg/0.1 mL (18 mg/3 mL) pen injector 1.8 mg SC DAILY Qty: 9 RF: 3 magnesium oxide 400 mg (241.3 mg magnesium) tablet 400 mg PO DAILY Qty: 90 RF: 0 Novolog Flexpen U-100 Insulin 100 unit/mL insulin pen See Rx Instructions SC AC Qty: 15 RF: 3 insulin regular hum U-500 conc 500 unit/mL (3 mL) insulin pen See Rx Instructions SC BID RF: 0 (DME) lancets 1 EACH misc 1 ea Miscellaneous QID Qty: 350 RF: 3 (DME) pen needle, diabetic 1 EACH needle Miscellaneous TID Qty: 300 RF: 3 lisinopril 5 mg tablet 5 mg PO DAILY Qty: 90 RF: 3 sertraline [Zoloft] 100 mg tablet 100 mg PO DAILY Qty: 90 RF: 3 metformin 1,000 mg tablet 1,000 mg PO BID Qty: 180 RF: 3 nitroglycerin 0.4 mg tablet, sublingual 0.4 mg SL Q5M MDD 3 doses PRN (Reason: chest pain) Qty: 30 RF: 0 aspirin 81 mg tablet,chewable 81 mg PO DAILY Qty: 90 RF: 3 metoprolol succinate 100 mg tablet extended release 24 hr 150 mg PO DAILY RF: 0 (DME) FreeStyle Flako 14 Day Sensor kit See Dose Instructions .ROUTE .MEDSUPPLY Qty: 1 RF: 0 (DME) Blood Glucose Test Strip See Rx Instructions .ROUTE .MEDSUPPLY Qty: 400 RF: 3 pantoprazole 40 mg tablet,delayed release (DR/EC) 40 mg PO QAM Qty: 90 RF: 3 rosuvastatin [Crestor] 40 mg tablet 40 mg PO HS RF: 0 Jardiance 25 mg Tablet 25 mg PO DAILY RF: 0 clopidogrel [Plavix] 75 mg Tablet 75 mg PO DAILY Qty: 30 RF: 0 Discharge Instructions Instructions: Cellulitis (ED), Diabetic Foot Ulcers (ED) Additional Instructions: Please take the antibiotic as prescribed and for the full course of medication. While on the antibiotic it is important that you use a probiotic just take 2 hours after your morning dose of antibiotic for the next 2 weeks. Stay well- hydrated and return to the emergency department immediately for any significant or rapid worsening of symptoms otherwise return to the emergency department in 2 days for reassessment. Stand Alone Forms: Work Release Referrals: [facility] Emergency Dept. [Outside] - 2 days (Return for reassessment) Discharge Data Discharge Date/Time-TO BE ENTERED AT DEPARTURE: 07/19/19 23:41 Medical Decision Making Patient presenting the emergency department chief complaint of swelling to the right foot. Patient states that he stands all day at work and when he took his boots and shoes off he noted some redness and swelling to his right foot. Physical exam shows a blister to the plantar aspect of the foot with significant erythema surrounding the second through fourth toe and also going on to the dorsal aspect of the foot. Patient does have 1+ edema to the foot but no calf or thigh tenderness, no diffuse erythema, otherwise unremarkable exam. Concern for cellulitis and given that patient is a diabetic plan to check radiological imaging to ensure no signs of osteomyelitis. Given moderate infection I do feel that clindamycin is an appropriate choice. Patient does have penicillin allergy. Discussed with patient use of probiotics while on clindamycin. Radiological imaging reviewed and shows no signs of osteomyelitis/that patient is able to be safely discharged on p.o. medications. Plan to have patient return in 48 hours for wound recheck or return sooner for any significant or rapid worsening of symptoms. Patient is agreeable to this plan of care. After discussion of diagnosis and plan of care patient has no further needs, questions, or concerns and states clear understanding to return to the emergency department for any worsening symptoms. HPI General Mode of arrival: ambulatory . Date/Time Provider Initiated Documentation: 07/19/19 21:58 . Limitations to Documentation: no limitations . Information obtained by: patient and RN notes reviewed . History of Present Illness 53 year old M presents to the emergency department with the chief complaint of Right foot swelling, described as moderate, Quality is described as other (Denies pain or discomfort), and is localized to the right and lower extremity. Patient started experiencing this day(s) (1) and it has been constant. No relieving factors improve symptom(s), No exacerbating factors reported . Patient notes no other symptoms.. Patient did receive the following treatments prior to arrival, none Related Data Home Medications Medication Instructions Recorded Confirmed lancets #350 ea 08/24/17 05/22/19 pen needle, diabetic #300 03/02/18 05/22/19 lisinopril 5 mg tablet 5 mg PO DAILY #90 tab-cap 09/13/18 07/21/19 sertraline 100 mg tablet 100 mg PO DAILY #90 tab-cap 09/13/18 07/21/19 metformin 1,000 mg tablet 1,000 mg PO BID #180 tab-cap 12/08/18 07/21/19 nitroglycerin 0.4 mg sublingual 0.4 mg SL Q5M PRN #30 tab-cap MDD 01/08/19 07/21/19 tablet 3 doses aspirin 81 mg chewable tablet 81 mg PO DAILY #90 tab-cap 01/18/19 07/21/19 rosuvastatin [Crestor] 40 mg PO HS 02/13/19 07/21/19 Jardiance 25 mg PO DAILY 02/15/19 07/21/19 clopidogrel [Plavix] 75 mg PO DAILY #30 tab 02/15/19 07/21/19 metoprolol succinate 100 mg 150 mg PO DAILY tab 03/05/19 07/21/19 tablet,extended release 24 hr insulin aspart U-100 100 unit/mL See Rx Instructions SC AC #15 ml 03/14/19 07/21/19 (3 mL) subcutaneous pen flash glucose sensor #1 each 05/03/19 05/22/19 blood sugar diagnostic #400 each 06/22/19 pantoprazole 40 mg tablet,delayed 40 mg PO QAM #90 tab-cap 06/28/19 07/21/19 release clindamycin HCl 450 mg PO TID 10 Days #90 cap 07/19/19 07/21/19 insulin regular hum U-500 conc See Rx Instructions SC BID ml 07/19/19 07/21/19 liraglutide 0.6 mg/0.1 mL (18 mg/3 1.8 mg SC DAILY #9 ml 07/19/19 07/21/19 mL) subcutaneous pen injector magnesium oxide 400 mg (241.3 mg 400 mg PO DAILY #90 tab-cap 07/19/19 07/21/19 magnesium) tablet Previous Rx's Medication Instructions Recorded lancets #350 ea 08/24/17 lisinopril 5 mg tablet 5 mg PO DAILY #90 tab-cap 09/13/18 sertraline 100 mg tablet 100 mg PO DAILY #90 tab-cap 09/13/18 metformin 1,000 mg tablet 1,000 mg PO BID #180 tab-cap 12/08/18 nitroglycerin 0.4 mg sublingual 0.4 mg SL Q5M PRN #30 tab-cap MDD 01/08/19 tablet 3 doses aspirin 81 mg chewable tablet 81 mg PO DAILY #90 tab-cap 01/18/19 clopidogrel [Plavix] 75 mg PO DAILY #30 tab 02/15/19 insulin aspart U-100 100 unit/mL See Rx Instructions SC AC #15 ml 03/14/19 (3 mL) subcutaneous pen flash glucose sensor #1 each 05/03/19 blood sugar diagnostic #400 each 06/22/19 pantoprazole 40 mg tablet,delayed 40 mg PO QAM #90 tab-cap 06/28/19 release clindamycin HCl 450 mg PO TID 10 Days #90 cap 07/19/19 liraglutide 0.6 mg/0.1 mL (18 mg/3 1.8 mg SC DAILY #9 ml 07/19/19 mL) subcutaneous pen injector magnesium oxide 400 mg (241.3 mg 400 mg PO DAILY #90 tab-cap 07/19/19 magnesium) tablet Allergies Allergy/AdvReac Type Severity Reaction Status Date / Time bee venom protein (honey bee) Allergy Severe Swelling/Ed Verified 07/21/19 09:44 capri Penicillins Allergy Unknown Rash Verified 07/21/19 09:44 shellfish derived Allergy Unknown Rash; Verified 07/21/19 09:44 swelling General Stated Complaint: Cellulitis VAN: 4 Review of Systems Constitutional Denies body ache(s), Denies chills and Denies fever(s) Cardiovascular Denies chest pain, Reports pedal edema (Right leg) and Denies dyspnea Respiratory Denies dyspnea Gastrointestinal Denies abdominal pain, Denies nausea and Denies vomiting Musculoskeletal Denies limited range of motion and Denies tingling Integumentary/Breasts Reports as per HPI, Denies rash and Reports skin swelling Neurologic Denies tingling PFS Social History (Updated 07/19/19 @ 13:57 by Danita Oh) Smoking/Tobacco Use Status: Never Alcohol Intake: never Drug use: Never Substance use type: does not use Household members: spouse Housing: apartment Number of Children: 1 Communication Needs: None 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: No Do you feel safe at home: Yes Do you feel safe in your relationship?: Yes Exam Const General: cooperative, no acute distress and not ill appearing Orientation: alert, awake and oriented x3 HENMT Mouth: moist mucous membranes Resp Effort & Inspection: normal respiratory effort, able to speak in complete sentences and no respiratory distress Auscultation: clear to auscultation bilaterally Cardio Rate: regular rate and not tachycardic Rhythm: regular rhythm Heart Sounds: no click, no gallops, no murmurs and no rubs Pulses: posterior tibial pulses present and dorsalis pedis pulses present Neuro General: alert, awake, oriented x3, moves all extremities and no focal motor deficits Extrem Left lower extremity: lower leg Details: erythema Location: of the mid lower leg Location: anteriorly, ankle Details: pitting edema and foot Details: normal capillary refill, toes with normal ROM and other (Blister to the plantar aspect of foot with surrounding erythema. No purulent drainage. ); no tenderness Course Vital Signs Temperature 36.4 C L 07/19/19 21:52 Pulse 85 07/19/19 21:52 Respiratory Rate 16 07/19/19 21:52 Blood Pressure 125/69 07/19/19 21:52 Pulse Oximetry 97 07/19/19 21:52 Temperature 36.4 C L 07/19/19 21:52 Temperature Source Temporal Artery Scan 07/19/19 21:52 Pulse 85 07/19/19 21:52 Respiratory Rate 16 07/19/19 21:52 Respiratory Effort 07/19/19 21:52 Blood Pressure 125/69 07/19/19 21:52 Pulse Oximetry 97 07/19/19 21:52 Oxygen Delivery Method Room Air 07/19/19 21:52 Oxygen Flow Rate 0 07/19/19 21:52 Pain Level 0 07/19/19 21:52
--- NOTE | 2019-07-19 22:52 | DI.VRAD_ITS ---
EXAM: XR Right Foot Complete EXAM DATE/TIME: 07/19/2019 10:29 PM CLINICAL HISTORY: 53 years old, male; Other: Diabetic plantar foot infection TECHNIQUE: Imaging protocol: XR Right foot. Views: 3 or more views. COMPARISON: No relevant prior studies available. FINDINGS: Bones/joints: No fracture or dislocation. Soft tissues: Soft tissue edema. This likely represents cellulitis. No osteomyelitis. IMPRESSION: Soft tissue edema. This likely represents cellulitis. No osteomyelitis. Dictated and Authenticated by: Ranjit Simpson MD. Ordering:MARVIN Baugh MD
[2019-07-19] MEDS: Clindamycin 150 MG CAP 450 MG PO ×2 (22:54→23:35)
[2019-07-19 23:42] VITALS: BP 123/82; PULSE 85; RESP 16; O2SAT 95
== END 2019-07-19 23:41 | disposition home or self-care (01) ==
PROVIDERS: Emergency Provider Nurse Practitioner Family; PCP Nurse Practitioner Family
DX: E11.621 Type 2 diabetes mellitus with foot ulcer (principal); Z79.4 Long term (current) use of insulin
CPT/HCPCS: 99283; 73630

== ENCOUNTER 2019-07-21 09:38 | Emergency (ER) | payer MEDICAID, SELFPAY ==
[2019-07-21 09:42] VITALS: BP 127/87; PULSE 91; RESP 18; TEMP 36.4; O2SAT 96
--- NOTE | 2019-07-21 09:51 | ED.GENADUL_ITS ---
Discharge Plan Disposition Patient Disposition: HOME Condition: Improving Discharge Details Chief Complaint: Recheck Clinical Impression: Encounter for wound re-check Primary Care Provider: Camilla Sherman ED Provider: Amauri Malone Home Meds and New Rx's Prescriptions: Continued Victoza 3-Alfonso 0.6 mg/0.1 mL (18 mg/3 mL) pen injector 1.8 mg SC DAILY Qty: 9 RF: 3 magnesium oxide 400 mg (241.3 mg magnesium) tablet 400 mg PO DAILY Qty: 90 RF: 0 Novolog Flexpen U-100 Insulin 100 unit/mL insulin pen See Rx Instructions SC AC Qty: 15 RF: 3 insulin regular hum U-500 conc 500 unit/mL (3 mL) insulin pen See Rx Instructions SC BID RF: 0 (DME) lancets 1 EACH misc 1 ea Miscellaneous QID Qty: 350 RF: 3 (DME) pen needle, diabetic 1 EACH needle Miscellaneous TID Qty: 300 RF: 3 lisinopril 5 mg tablet 5 mg PO DAILY Qty: 90 RF: 3 sertraline [Zoloft] 100 mg tablet 100 mg PO DAILY Qty: 90 RF: 3 metformin 1,000 mg tablet 1,000 mg PO BID Qty: 180 RF: 3 nitroglycerin 0.4 mg tablet, sublingual 0.4 mg SL Q5M MDD 3 doses PRN (Reason: chest pain) Qty: 30 RF: 0 aspirin 81 mg tablet,chewable 81 mg PO DAILY Qty: 90 RF: 3 metoprolol succinate 100 mg tablet extended release 24 hr 150 mg PO DAILY RF: 0 (DME) FreeStyle Flako 14 Day Sensor kit See Dose Instructions .ROUTE .MEDSUPPLY Qty: 1 RF: 0 (DME) Blood Glucose Test Strip See Rx Instructions .ROUTE .MEDSUPPLY Qty: 400 RF: 3 pantoprazole 40 mg tablet,delayed release (DR/EC) 40 mg PO QAM Qty: 90 RF: 3 rosuvastatin [Crestor] 40 mg tablet 40 mg PO HS RF: 0 Jardiance 25 mg Tablet 25 mg PO DAILY RF: 0 clopidogrel [Plavix] 75 mg Tablet 75 mg PO DAILY Qty: 30 RF: 0 clindamycin HCl 150 mg capsule 450 mg PO TID 10 Days Qty: 90 RF: 0 Discharge Instructions Instructions: Diabetic Foot Ulcers (ED) Additional Instructions: Continue to take your antibiotics as prescribed and return to the emergency department immediately for any new or significant worsening of symptoms. Follow-up with your primary care provider next week for reassessment. Continue to take and use probiotics to help prevent any gastrointestinal side effects. Referrals: Camilla Sherman NP [Primary Care Provider] - (Please call the office on Tuesday for arrangement of follow-up appointment) Discharge Data Discharge Date/Time-TO BE ENTERED AT DEPARTURE: 07/21/19 09:57 Medical Decision Making Patient presenting to the emergency department for wound recheck. Patient is a diabetic with a open blister to the plantar aspect of the right foot. I saw patient 2 days ago when he had significant erythema to the second through fourth toes starting at the plantar surface and going up to the dorsal midfoot. Patient also had significant edema of the foot and ankle at that time. Patient has been on clindamycin and taking it as prescribed and has noticed significant improvement of symptoms, no further swelling or edema, and drastic decrease of erythema. Given this improvement I do not feel that patient requires any fur ther treatment but to continue to take antibiotics and his normally prescribed medication. Return precautions were discussed. After discussion of diagnosis and plan of care patient has no further needs, questions, or concerns and states clear understanding to return to the emergency department for any worsening symptoms. HPI General Mode of arrival: ambulatory . Date/Time Provider Initiated Documentation: 07/21/19 09:51 . Limitations to Documentation: no limitations . Information obtained by: patient and RN notes reviewed . History of Present Illness 53 year old M presents to the emergency department with the chief complaint of Foot infection recheck, Quality is described as other (Denies pain or discomfort), and is localized to the right and lower extremity. Patient started experiencing this day(s) (2) Patient notes no other symptoms.. Related Data Home Medications Medication Instructions Recorded Confirmed lancets #350 ea 08/24/17 05/22/19 pen needle, diabetic #300 03/02/18 05/22/19 lisinopril 5 mg tablet 5 mg PO DAILY #90 tab-cap 09/13/18 07/21/19 sertraline 100 mg tablet 100 mg PO DAILY #90 tab-cap 09/13/18 07/21/19 metformin 1,000 mg tablet 1,000 mg PO BID #180 tab-cap 12/08/18 07/21/19 nitroglycerin 0.4 mg sublingual 0.4 mg SL Q5M PRN #30 tab-cap MDD 01/08/19 07/21/19 tablet 3 doses aspirin 81 mg chewable tablet 81 mg PO DAILY #90 tab-cap 01/18/19 07/21/19 rosuvastatin [Crestor] 40 mg PO HS 02/13/19 07/21/19 Jardiance 25 mg PO DAILY 02/15/19 07/21/19 clopidogrel [Plavix] 75 mg PO DAILY #30 tab 02/15/19 07/21/19 metoprolol succinate 100 mg 150 mg PO DAILY tab 03/05/19 07/21/19 tablet,extended release 24 hr insulin aspart U-100 100 unit/mL See Rx Instructions SC AC #15 ml 03/14/19 07/21/19 (3 mL) subcutaneous pen flash glucose sensor #1 each 05/03/19 05/22/19 blood sugar diagnostic #400 each 06/22/19 pantoprazole 40 mg tablet,delayed 40 mg PO QAM #90 tab-cap 06/28/19 07/21/19 release clindamycin HCl 450 mg PO TID 10 Days #90 cap 07/19/19 07/21/19 insulin regular hum U-500 conc See Rx Instructions SC BID ml 07/19/19 07/21/19 liraglutide 0.6 mg/0.1 mL (18 mg/3 1.8 mg SC DAILY #9 ml 07/19/19 07/21/19 mL) subcutaneous pen injector magnesium oxide 400 mg (241.3 mg 400 mg PO DAILY #90 tab-cap 07/19/19 07/21/19 magnesium) tablet Previous Rx's Medication Instructions Recorded lancets #350 ea 08/24/17 lisinopril 5 mg tablet 5 mg PO DAILY #90 tab-cap 09/13/18 sertraline 100 mg tablet 100 mg PO DAILY #90 tab-cap 09/13/18 metformin 1,000 mg tablet 1,000 mg PO BID #180 tab-cap 12/08/18 nitroglycerin 0.4 mg sublingual 0.4 mg SL Q5M PRN #30 tab-cap MDD 01/08/19 tablet 3 doses aspirin 81 mg chewable tablet 81 mg PO DAILY #90 tab-cap 01/18/19 clopidogrel [Plavix] 75 mg PO DAILY #30 tab 02/15/19 insulin aspart U-100 100 unit/mL See Rx Instructions SC AC #15 ml 03/14/19 (3 mL) subcutaneous pen flash glucose sensor #1 each 05/03/19 blood sugar diagnostic #400 each 06/22/19 pantoprazole 40 mg tablet,delayed 40 mg PO QAM #90 tab-cap 06/28/19 release clindamycin HCl 450 mg PO TID 10 Days #90 cap 07/19/19 liraglutide 0.6 mg/0.1 mL (18 mg/3 1.8 mg SC DAILY #9 ml 07/19/19 mL) subcutaneous pen injector magnesium oxide 400 mg (241.3 mg 400 mg PO DAILY #90 tab-cap 07/19/19 magnesium) tablet Allergies Allergy/AdvReac Type Severity Reaction Status Date / Time bee venom protein (honey bee) Allergy Severe Swelling/Ed Verified 07/21/19 09:44 capri Penicillins Allergy Unknown Rash Verified 07/21/19 09:44 shellfish derived Allergy Unknown Rash; Verified 07/21/19 09:44 swelling General Stated Complaint: Recheck VAN: 5 Review of Systems Constitutional Denies chills and Denies fever(s) Gastrointestinal Denies abdominal pain, Denies nausea and Denies vomiting Integumentary/Breasts Reports as per HPI, Reports erythema and Denies skin swelling [facility] Social History (Updated 07/19/19 @ 13:57 by Danita Casiano) Smoking/Tobacco Use Status: Never Alcohol Intake: never Drug use: Never Substance use type: does not use Household members: spouse Housing: apartment Number of Children: 1 Communication Needs: None 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 Do you feel safe at home: Yes Do you feel safe in your relationship?: Yes Exam Const General: cooperative, no acute distress and not ill appearing Orientation: alert, awake and oriented x3 HENMT Mouth: moist mucous membranes Resp Effort & Inspection: normal respiratory effort, able to speak in complete sentences and no respiratory distress Cardio Rate: regular rate Rhythm: regular rhythm Neuro General: alert, awake, oriented x3, moves all extremities and no focal motor deficits Extrem Right lower extremity: ankle Details: normal to inspection, no edema and normal ROM; no tenderness, no swelling and no ecchymosis and foot Details: toes with normal ROM, no edema, vascular exam Details: dorsalis pedis pulse present, posterior tibial pulse present and normal capillary refill, tendon exam Details: active flexion normal and active extension normal and other (Blister still present on the plantar aspect but significant improvement of erythema surrounding); no tenderness Course Vital Signs Temperature 36.4 C L 07/21/19 09:42 Pulse 91 H 07/21/19 09:42 Respiratory Rate 18 07/21/19 09:42 Blood Pressure 127/87 07/21/19 09:42 Pulse Oximetry 96 07/21/19 09:42 Temperature 36.4 C L 07/21/19 09:42 Temperature Source Skin 07/21/19 09:42 Pulse 91 H 07/21/19 09:42 Respiratory Rate 18 07/21/19 09:42 Blood Pressure 127/87 07/21/19 09:42 Pulse Oximetry 96 07/21/19 09:42 Pain Level 0 07/21/19 09:42
--- NOTE | 2019-07-21 11:20 | NUR.NOTE ---
Faxed referral to [facility] 07/21/19
== END 2019-07-21 09:57 | disposition home or self-care (01) ==
LOC: ER 09:55
PROVIDERS: Emergency Provider Nurse Practitioner Family; PCP Nurse Practitioner Family
DX: L08.9 Local infection of the skin and subcutaneous tissue, unspecified (principal); Z48.02 Encounter for removal of sutures; E11.9 Type 2 diabetes mellitus without complications; Z79.4 Long term (current) use of insulin
CPT/HCPCS: 99281; 99282

== ENCOUNTER 2019-09-08 16:42 | Emergency (ER) | payer SELFPAY ==
[2019-09-08 16:46] VITALS: BP 134/93; PULSE 68; RESP 16; TEMP 36.5; O2SAT 95
--- NOTE | 2019-09-08 17:09 | DI.RAD_ITS ---
EXAM: XR FOOT RT COMPLETE INDICATION: diabetic wound plantar foot, r/o osteomyelitis. COMPARISON: XR ANKLE RT COMPLETE from 09/08/2019 TECHNIQUE: 2D digital imaging was performed. FINDINGS: No fracture or dislocation is seen. There are no bony erosions or foreign bodies. Mild degenerativ e changes are seen. IMPRESSION: No radiographic evidence osteomyelitis.
--- NOTE | 2019-09-08 17:10 | DI.RAD_ITS ---
EXAM: XR ANKLE RT COMPLETE CLINICAL HISTORY: pain, eccymosis TECHNIQUE: COMPARISON: No exams were available for comparison FINDINGS: Three views were obtained. The ankle mortise appears well maintained. There are degenerative change s of the joints of the ankle. No evidence of acute fracture. No specific evidence of osteomyelitis. If there is a high clinical suspicion of osteomyelitis, additional evaluation with MRI would be rec ommended. IMPRESSION:
--- NOTE | 2019-09-08 17:11 | W.ED.GENAD ---
Discharge Plan Disposition Patient Disposition: HOME Condition: Good Discharge Details Chief Complaint: Cellulitis Clinical Impression: Cellulitis, Ulcer Primary Care Provider: Camilla Sherman ED Provider: Armida Bates Home Meds and New Rx's Prescriptions: New clindamycin HCl 300 mg capsule 300 mg PO TID Qty: 30 RF: 0 No Action Victoza 3-Alfonso 0.6 mg/0.1 mL (18 mg/3 mL) pen injector 1.8 mg SC DAILY Qty: 9 RF: 3 magnesium oxide 400 mg (241.3 mg magnesium) tablet 400 mg PO DAILY Qty: 90 RF: 0 insulin regular hum U-500 conc 500 unit/mL (3 mL) insulin pen See Rx Instructions SC BID RF: 0 Novolog Flexpen U-100 Insulin 100 unit/mL insulin pen See Rx Instructions SC AC Qty: 15 RF: 3 (DME) lancets 1 EACH misc 1 ea Miscellaneous QID Qty: 350 RF: 3 (DME) pen needle, diabetic 1 EACH needle Miscellaneous TID Qty: 300 RF: 3 lisinopril 5 mg tablet 5 mg PO DAILY Qty: 90 RF: 3 sertraline [Zoloft] 100 mg tablet 100 mg PO DAILY Qty: 90 RF: 3 metformin 1,000 mg tablet 1,000 mg PO BID Qty: 180 RF: 3 nitroglycerin 0.4 mg tablet, sublingual 0.4 mg SL Q5M MDD 3 doses PRN (Reason: chest pain) Qty: 30 RF: 0 aspirin 81 mg tablet,chewable 81 mg PO DAILY Qty: 90 RF: 3 metoprolol succinate 100 mg tablet extended release 24 hr 150 mg PO DAILY RF: 0 (DME) FreeStyle Flako 14 Day Sensor kit See Dose Instructions .ROUTE .MEDSUPPLY Qty: 1 RF: 0 (DME) Blood Glucose Test Strip See Rx Instructions .ROUTE .MEDSUPPLY Qty: 400 RF: 3 pantoprazole 40 mg tablet,delayed release (DR/EC) 40 mg PO QAM Qty: 90 RF: 3 rosuvastatin [Crestor] 40 mg tablet 40 mg PO HS RF: 0 Jardiance 25 mg Tablet 25 mg PO DAILY RF: 0 clopidogrel [Plavix] 75 mg Tablet 75 mg PO DAILY Qty: 30 RF: 0 Discharge Instructions Instructions: Cellulitis (ED) Additional Instructions: Elevate leg for swelling. Wash foot with soap and water once or twice daily. Apply topical anabolic ointment to the wound. Using antibiotic by mouth as prescribed. Please follow-up promptly with your pantry goods maker. For any increase in swelling, pain or worsening have immediate reevaluation in the emergency room as discussed. Please follow your blood sugars closely. They were noted to be elevated today. Return for any worsening or concerns sooner if needed Medical Decision Making 53-year-old diabetic man with multiple comorbidities presents for pain in his foot for the last 2 weeks associated with mild skin changes specifically mild erythema of the cotton and ecchymosis of the lateral foot. Patient does have a ulcerative wound on the plantar aspect of his foot which is been managed with podiatry this year. Patient reports he was seen in the end of June for similar concerns of foot infection. Patient reports at that time his symptoms were significantly worse. Patient reports very minimal swelling at this time his previous infection of his foot he had significant swelling. Patient reports he was treated with oral antibiotics which successfully relieved his swelling and infectious symptoms. He is followed by podiatry Dr. Lieberman. Patient denies fever, chills, nausea, vomiting. He reports his blood sugars have been adequate recently. Patient denies obvious injury or trauma to his foot On exam patient has chronic pretibial skin changes bilaterally mild increase in erythema of the pretibial distal cotton noted on the right. Patient with a large callus approximately the size of a quarter on the plantar aspect of his right foot with some foul odor without obvious drainage. Pain with palpation of the site. No significant cellulitis of the right foot. Ecchymosis noted at the medial and lateral aspects of the foot on exam. X-ray does not reveal any osteomyelitis. No obvious fractures. Labs are reassuring no obvious leukocytosis. Patient does have elevation of his blood sugar did receive IV fluid and blood sugars did improve to 262. Patient counseled regarding care and management of his blood sugars and compliance with his medications. I spoke with a nurse who called back to send along a message to his pantry goods maker regarding his current infection and necessity for prompt follow-up. Patient also advised to call his pantry goods maker on Tuesday morning. Will prescribe clindamycin as the patient responded well to this management in the end of June. Patient agrees with plan of care. The patient was stable and requested discharge. Prior to discharge, my usual and customary return precautions were reviewed with the patient - this included follow-up instructions and reasons to return to the Emergency Department if conditions worsens, does not improve as expected, or other new concerns arise. HPI General Date/Time Provider Initiated Documentation: 09/08/19 16:45. HPI Narrative: Patient presents for complaints of wound on the right foot which is chronic. Patient is diabetic. Patient noted ecchymosis to the lateral foot which prompted his evaluation today. Patient also reports 2 weeks of increased discomfort with ambulation on the right foot. Denies any specific injury or trauma. Patient reports 1 month ago he was seen for swelling of the foot which was causing difficulty ambulating. He required antibiotics to improve swelling. He is concerned with the possibility of developing another infection. Denies ill feeling or systemic symptoms. Specifically no fever, chills, nausea or vomiting. Eating and drink without difficulty. Patient is followed by podiatry. Related Data Home Medications Medication Instructions Recorded Confirmed lancets #350 ea 08/24/17 05/22/19 pen needle, diabetic #300 03/02/18 05/22/19 lisinopril 5 mg tablet 5 mg PO DAILY #90 tab-cap 09/13/18 09/08/19 sertraline 100 mg tablet 100 mg PO DAILY #90 tab-cap 09/13/18 09/08/19 metformin 1,000 mg tablet 1,000 mg PO BID #180 tab-cap 12/08/18 09/08/19 nitroglycerin 0.4 mg sublingual 0.4 mg SL Q5M PRN #30 tab-cap MDD 01/08/19 09/08/19 tablet 3 doses aspirin 81 mg chewable tablet 81 mg PO DAILY #90 tab-cap 01/18/19 09/08/19 rosuvastatin [Crestor] 40 mg PO HS 02/13/19 09/08/19 Jardiance 25 mg PO DAILY 02/15/19 09/08/19 clopidogrel [Plavix] 75 mg PO DAILY #30 tab 02/15/19 09/08/19 metoprolol succinate 100 mg 150 mg PO DAILY tab 03/05/19 09/08/19 tablet,extended release 24 hr insulin aspart U-100 100 unit/mL See Rx Instructions SC AC #15 ml 03/14/19 09/08/19 (3 mL) subcutaneous pen flash glucose sensor #1 each 05/03/19 05/22/19 blood sugar diagnostic #400 each 06/22/19 pantoprazole 40 mg tablet,delayed 40 mg PO QAM #90 tab-cap 06/28/19 09/08/19 release liraglutide 0.6 mg/0.1 mL (18 mg/3 1.8 mg SC DAILY #9 ml 07/19/19 09/08/19 mL) subcutaneous pen injector magnesium oxide 400 mg (241.3 mg 400 mg PO DAILY #90 tab-cap 07/19/19 09/08/19 magnesium) tablet insulin regular hum U-500 conc See Rx Instructions SC BID ml 08/16/19 09/08/19 clindamycin HCl 300 mg PO TID #30 cap 09/08/19 Previous Rx's Medication Instructions Recorded lancets #350 ea 08/24/17 lisinopril 5 mg tablet 5 mg PO DAILY #90 tab-cap 09/13/18 sertraline 100 mg tablet 100 mg PO DAILY #90 tab-cap 09/13/18 metformin 1,000 mg tablet 1,000 mg PO BID #180 tab-cap 12/08/18 nitroglycerin 0.4 mg sublingual 0.4 mg SL Q5M PRN #30 tab-cap MDD 01/08/19 tablet 3 doses aspirin 81 mg chewable tablet 81 mg PO DAILY #90 tab-cap 01/18/19 clopidogrel [Plavix] 75 mg PO DAILY #30 tab 02/15/19 insulin aspart U-100 100 unit/mL See Rx Instructions SC AC #15 ml 03/14/19 (3 mL) subcutaneous pen flash glucose sensor #1 each 05/03/19 blood sugar diagnostic #400 each 06/22/19 pantoprazole 40 mg tablet,delayed 40 mg PO QAM #90 tab-cap 06/28/19 release liraglutide 0.6 mg/0.1 mL (18 mg/3 1.8 mg SC DAILY #9 ml 07/19/19 mL) subcutaneous pen injector magnesium oxide 400 mg (241.3 mg 400 mg PO DAILY #90 tab-cap 07/19/19 magnesium) tablet clindamycin HCl 300 mg PO TID #30 cap 09/08/19 Allergies Allergy/AdvReac Type Severity Reaction Status Date / Time bee venom protein (honey bee) Allergy Severe Swelling/Ed Verified 09/08/19 16:49 capri Penicillins Allergy Unknown Rash Verified 09/08/19 16:49 shellfish derived Allergy Unknown Rash; Verified 09/08/19 16:49 swelling General Stated Complaint: Cellulitis VAN: 4 Review of Systems Review of Systems ROS Unobtainable: All systems reviewed & are unremarkable except as noted in HPI and below Constitutional Constitutional: Denies chills, Denies fever(s) and Denies malaise Musculoskeletal Musculoskeletal: Denies numbness Integumentary/Breasts Skin/Breast: Reports unusual bruising and Reports wounds Neurologic Neurologic: Denies numbness [facility] Medical History Adult BMI > 30 (Chronic) ASCVD (arteriosclerotic cardiovascular disease) (Chronic 07/28/17) NSTEMI with HFrEF 07/11/2017 s/p MADONNA to mLAD on 07/14/2017 at [facility] Callus of foot (Chronic) I advised to purchase pumice stone and gentle smooth out the surface of the callus. Chronic HFrEF (heart failure with reduced ejection fraction) (Chronic 07/20/18) LVEF 30-35% on index presentation improved to 50% on f/u echo Conductive hearing loss (Chronic 07/06/13) Depression (Chronic 11/25/11) Elevated ferritin level (Chronic 10/20/17) Erectile dysfunction (Chronic 07/06/13) Essential hypertension (Chronic 07/06/13) Gastroesophageal reflux disease (Chronic) Hyperlipidemia (Chronic 07/06/13) 11/2017 labwork: 10-year ASCVD risk = ~6.1% --> continue current high intensity statin therapy (h/o ASCVD) Hyperuricemia (Inactive) Hypomagnesemia (Acute) Microalbuminuria (Chronic) Noncompliance with medication regimen (Chronic 07/06/13) Nonproliferative diabetic retinopathy (Chronic) NSTEMI (non-ST elevated myocardial infarction) (Inactive 07/11/17) 06/2017: S/p MADONNA to mLAD at [facility] Will require DAPT for a minimum of 1 year Obstructive sleep apnea, adult (Chronic 10/31/14) Severe, C-pap, Dr. Almeida continue on CPAP therapy with mask of choice,heated humidification and ramp. pressure should be set at 12 cm/H2o,alternatively auto CPAP 8-14 cm/H2O can be used. (sleep study note cameron Pulmonary hypertension (Chronic 07/14/17) 07/14/17 mild pulm hypertension, mild pulm capillary wedge pressure, elevated left ventricular end diastolic pressure, one vessel CAD-LAD w/ stent oinsertion Restless leg syndrome (Chronic 10/31/14) Per Sleep Lab Dr. Bui Sensorineural hearing loss, bilateral (Chronic 11/24/17) Tubular adenoma of colon (Inactive 10/18/14) Type 2 diabetes mellitus with retinopathy, with long-term current use of insulin (Chronic 10/27/17) Surgical History Cholecystectomy (Resolved) Colonoscopy - IV Sedation (Resolved 10/14/14) tubular adenoma Dr. Blancas S/P coronary artery stent placement (Inactive) s/p MADONNA to LAD mid 2; Dr. 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 Well hydrated. Alert and alert. MUSCULOSKELETAL: Normal Gait. FROM of all extremities. No calf pain with palpation, ankle pain with palpation. Mild foot pain with palpation specifically at the site of a plantar ulcer. Malodorous. Ulcers approximately the size of a quarter with a small central area without obvious necrosis of the tissue. Pain with palpation of the foot. Ecchymosis noted along the lateral aspects of the foot. SKIN: Normal. Dry. No rashes. Patient with a plantar foot ulcer. NEURO: Alert and awake. Speech clear. PSYCH: Normal affect. Cooperative. Course Vital Signs Vital signs: Vital Signs Temperature 36.5 C 09/08/19 16:46 Pulse 68 09/08/19 16:46 Respiratory Rate 16 09/08/19 16:46 Blood Pressure 134/93 H 09/08/19 16:46 Pulse Oximetry 95 09/08/19 16:46 Temperature 36.5 C 09/08/19 16:46 Temperature Source Skin 09/08/19 16:46 Pulse 68 09/08/19 16:46 Respiratory Rate 16 09/08/19 16:46 Respiratory Effort Incrsd Work of Breathing 09/08/19 16:50 Blood Pressure 134/93 H 09/08/19 16:46 Pulse Oximetry 95 09/08/19 16:46 Pain Level 1 09/08/19 16:46
[2019-09-08 17:30] LABS: Abs Immature Grans 0.03 k/cumm (0.0-0.09); Absolute Basophil Count 0.04 k/cumm (0.0-0.2); Absolute Eosinophil Count 0.21 k/cumm (0.0-0.7); Absolute Lymphocyte Count 2.15 k/cumm (1.2-3.4); Absolute Monocyte Count 0.84 k/cumm (0.11-0.7); Absolute Neutrophil Count 5.85 k/cumm (1.2-6.7); Basophils % 0.4; Eosinophils % 2.3; HCT 41.9 % (40.0-50.0); HGB 14.9 g/dL (13.5-17.5); Immature Grans % 0.3; Lymphocytes % 23.6; Mean Corp. HGB Concentration 35.6 g/dL (32.0-36.0); Mean Corpuscular Hemoglobin 30.6 pg (27.0-33.0); Mean Platelet Volume 9.3 fL (8.0-11.0); Monocytes % 9.2; Neutrophils % 64.2; Platelet Count 245 x1000/uL (130-400); RBC 4.87 m/cumm (4.50-6.00); RBC Distribution Width 12.9 % (11.8-14.1); White Blood Cell Count 9.12 k/cumm (4.4-10.8)
[2019-09-08 17:40] LABS: ALT 30 U/L (16-63); AST 21 U/L (15-37); Albumin 3.6 g/dL (3.4-5.0); Alkaline Phosphatase 134 U/L (46-116); Anion Gap 8.2 mmol/L (3-11); BUN 18 mg/dL (7-18); Bilirubin, Total 0.5 mg/dL (0.2-1.0); CO2 26.8 mmol/L (21.0-32.0); CREATININE 1.23 mg/dL (0.70-1.30); Chloride 98 mmol/L (98-107); Glucose 357 mg/dL (70-100); Potassium 4.4 mmol/L (3.5-5.1); Sodium 133 mmol/L (136-145); Total Protein 7.1 g/dL (6.4-8.2)
[2019-09-08] MEDS: Normal Saline 1,000 ML 1000 ML IV (17:51)
--- NOTE | 2019-09-08 18:18 | DI.VRAD_ITS ---
PROCEDURE INFORMATION: Exam: XR Right Foot Complete Exam date and time: 09/08/2019 5:11 PM Clinical history: 53 years old, male; Other: Diabetic wound plantar foot, R/O osteomyelitis TECHNIQUE: Imaging protocol: XR Right foot. Views: 3 or more views. COMPARISON: CR XR foot RT complete 07/19/2019 10:32 PM FINDINGS: Bones/joints: Osseous anatomic alignment is well preserved. No acutely displaced fracture or dislocation. Joint spaces are well preserved. Soft tissues: Mild plantar soft tissue swelling. IMPRESSION: No definitive radiographic evidence for acute osteomyelitis. Dictated and Authenticated by: Geoffrey Viramontes MD. Ordering:JORJE Huffman MD
--- NOTE | 2019-09-08 18:19 | DI.VRAD_ITS ---
PROCEDURE INFORMATION: Exam: XR Right Ankle Exam date and time: 09/08/2019 5:11 PM Clinical history: 53 years old, male; Other: Diabetic wound plantar foot, R/O osteomyelitis TECHNIQUE: Imaging protocol: XR Right ankle. Views: 3 or more views. COMPARISON: CR XR foot RT complete 07/19/2019 10:32 PM FINDINGS: Bones/joints: Osseous anatomic alignment is well preserved. No acutely displaced fracture or dislocation. Joint spaces are well preserved. Soft tissues: No significant soft tissue swelling. IMPRESSION: Negative for acute skeletal pathology. Specifically, no discrete evidence for acute osteomyelitis. Dictated and Authenticated by: Geoffrey Viramontes MD. Ordering:JORJE Huffman MD
[2019-09-08] MEDS: CLINDAMYCIN 600 MG/50 ML BAG 100 MG IVPB (18:26)
[2019-09-08 20:00] VITALS: BP 133/81; PULSE 77; RESP 17; O2SAT 98
== END 2019-09-08 20:00 | disposition home or self-care (01) ==
PROVIDERS: Emergency Provider Physician Assistant; PCP Nurse Practitioner Family
DX: L97.519 Non-pressure chronic ulcer of other part of right foot with unspecified severity (principal); L03.115 Cellulitis of right lower limb; I10 Essential (primary) hypertension; E11.8 Type 2 diabetes mellitus with unspecified complications; Z79.4 Long term (current) use of insulin
CPT/HCPCS: 80053; 96361; 96365; 99284; 73610; 73630; 85025

== ENCOUNTER 2019-09-15 18:28 | Emergency (ER) | payer SELFPAY ==
[2019-09-15 18:31] VITALS: BP 111/75; PULSE 82; RESP 22; TEMP 36.7; O2SAT 96
--- NOTE | 2019-09-15 18:52 | W.ED.GENAD ---
Discharge Plan Disposition Patient Disposition: HOME Discharge Details Chief Complaint: Cellulitis Clinical Impression: Foot ulcer, right, Foot callus Primary Care Provider: Camilla Sherman ED Provider: Blake Flower Home Meds and New Rx's Prescriptions: Continued Victoza 3-Alfonso 0.6 mg/0.1 mL (18 mg/3 mL) pen injector 1.8 mg SC DAILY Qty: 9 RF: 3 magnesium oxide 400 mg (241.3 mg magnesium) tablet 400 mg PO DAILY Qty: 90 RF: 0 insulin regular hum U-500 conc 500 unit/mL (3 mL) insulin pen See Rx Instructions SC BID RF: 0 Novolog Flexpen U-100 Insulin 100 unit/mL insulin pen See Rx Instructions SC AC Qty: 15 RF: 3 (DME) lancets 1 EACH misc 1 ea Miscellaneous QID Qty: 350 RF: 3 (DME) pen needle, diabetic 1 EACH needle Miscellaneous TID Qty: 300 RF: 3 lisinopril 5 mg tablet 5 mg PO DAILY Qty: 90 RF: 3 sertraline [Zoloft] 100 mg tablet 100 mg PO DAILY Qty: 90 RF: 3 metformin 1,000 mg tablet 1,000 mg PO BID Qty: 180 RF: 3 nitroglycerin 0.4 mg tablet, sublingual 0.4 mg SL Q5M MDD 3 doses PRN (Reason: chest pain) Qty: 30 RF: 0 aspirin 81 mg tablet,chewable 81 mg PO DAILY Qty: 90 RF: 3 metoprolol succinate 100 mg tablet extended release 24 hr 150 mg PO DAILY RF: 0 (DME) FreeStyle Flako 14 Day Sensor kit See Dose Instructions .ROUTE .MEDSUPPLY Qty: 1 RF: 0 (DME) Blood Glucose Test Strip See Rx Instructions .ROUTE .MEDSUPPLY Qty: 400 RF: 3 pantoprazole 40 mg tablet,delayed release (DR/EC) 40 mg PO QAM Qty: 90 RF: 3 Jardiance 25 mg tablet 25 mg PO DAILY Qty: 90 RF: 3 clindamycin HCl 300 mg capsule 300 mg PO TID Qty: 30 RF: 0 rosuvastatin [Crestor] 40 mg tablet 40 mg PO HS RF: 0 clopidogrel [Plavix] 75 mg Tablet 75 mg PO DAILY Qty: 30 RF: 0 Discharge Instructions Instructions: [facility] for People with Diabetes (ED) Additional Instructions: Please continue to take antibiotic as prescribed. Complete the full course. Please keep wound clean, dry and protected. Please contact podiatry to arrange follow-up. Please contact your primary care physician to arrange follow-up. Return to the ER for any worsening or new concerning symptoms. Stand Alone Forms: Work Release Referrals: Camilla Sherman NP [Primary Care Provider] - Karlos Worrell DPM [[facility] STAFF PHYSICIAN] - Discharge Data Discharge Date/Time-TO BE ENTERED AT DEPARTURE: 09/15/19 19:10 Medical Decision Making 53-year-old male with with chronic calluses of his right foot, currently being treated with clindamycin for associated cellulitis, here today with decreased inflammation but with cracking and bleeding from central callus. Inflammatory changes have significantly improved. Patient was advised to continue clindamycin and complete full course. Blood sugar only mildly elevated today. We discussed need to monitor sugars closely and take insulin as prescribed. Patient was instructed on foot hygiene. Patient was encouraged to follow-up with podiatry. I explained that while the skin lesion is likely a callus with central skin cracking, I do have concerns that this could be neoplastic. He verbalized understanding discharge instructions and importance of timely follow-up. HPI General Mode of arrival: ambulatory. Date/Time Provider Initiated Documentation: 09/15/19 18:29. Limitations to Documentation: no limitations. Information obtained by: patient. HPI Narrative: 53-year-old male with history of diabetes presents with bleeding foot ulcer. Patient notes that he had a callus on the sole of right foot for months. He was seen here on 09/08/2019 for increased inflammation surrounding the callus. He was thought to have cellulitiis and was started on clindamycin which he has been taking as prescribed. He notes redness and inflammation has improved. Last night he notes foot callus seemed to split and was bleeding. Bleeding was mild and has stopped with dressing. Patient also notes that blood sugars have been elevated despite taking insulin. He is still on course of clindamycin. Related Data Home Medications Medication Instructions Recorded Confirmed lancets #350 ea 08/24/17 05/22/19 pen needle, diabetic #300 03/02/18 05/22/19 lisinopril 5 mg tablet 5 mg PO DAILY #90 tab-cap 09/13/18 09/15/19 sertraline 100 mg tablet 100 mg PO DAILY #90 tab-cap 09/13/18 09/15/19 metformin 1,000 mg tablet 1,000 mg PO BID #180 tab-cap 12/08/18 09/15/19 nitroglycerin 0.4 mg sublingual 0.4 mg SL Q5M PRN #30 tab-cap MDD 01/08/19 09/15/19 tablet 3 doses aspirin 81 mg chewable tablet 81 mg PO DAILY #90 tab-cap 01/18/19 09/15/19 rosuvastatin [Crestor] 40 mg PO HS 02/13/19 09/15/19 clopidogrel [Plavix] 75 mg PO DAILY #30 tab 02/15/19 09/15/19 metoprolol succinate 100 mg 150 mg PO DAILY tab 03/05/19 09/15/19 tablet,extended release 24 hr insulin aspart U-100 100 unit/mL See Rx Instructions SC AC #15 ml 03/14/19 09/15/19 (3 mL) subcutaneous pen flash glucose sensor #1 each 05/03/19 05/22/19 blood sugar diagnostic #400 each 06/22/19 pantoprazole 40 mg tablet,delayed 40 mg PO QAM #90 tab-cap 06/28/19 09/15/19 release liraglutide 0.6 mg/0.1 mL (18 mg/3 1.8 mg SC DAILY #9 ml 07/19/19 09/15/19 mL) subcutaneous pen injector magnesium oxide 400 mg (241.3 mg 400 mg PO DAILY #90 tab-cap 07/19/19 09/15/19 magnesium) tablet insulin regular hum U-500 conc See Rx Instructions SC BID ml 08/16/19 09/15/19 clindamycin HCl 300 mg PO TID #30 cap 09/08/19 09/15/19 empagliflozin 25 mg tablet 25 mg PO DAILY #90 tab-cap 09/10/19 09/15/19 Previous Rx's Medication Instructions Recorded lancets #350 ea 08/24/17 lisinopril 5 mg tablet 5 mg PO DAILY #90 tab-cap 09/13/18 sertraline 100 mg tablet 100 mg PO DAILY #90 tab-cap 09/13/18 metformin 1,000 mg tablet 1,000 mg PO BID #180 tab-cap 12/08/18 nitroglycerin 0.4 mg sublingual 0.4 mg SL Q5M PRN #30 tab-cap MDD 01/08/19 tablet 3 doses aspirin 81 mg chewable tablet 81 mg PO DAILY #90 tab-cap 01/18/19 clopidogrel [Plavix] 75 mg PO DAILY #30 tab 02/15/19 insulin aspart U-100 100 unit/mL See Rx Instructions SC AC #15 ml 03/14/19 (3 mL) subcutaneous pen flash glucose sensor #1 each 05/03/19 blood sugar diagnostic #400 each 06/22/19 pantoprazole 40 mg tablet,delayed 40 mg PO QAM #90 tab-cap 06/28/19 release liraglutide 0.6 mg/0.1 mL (18 mg/3 1.8 mg SC DAILY #9 ml 07/19/19 mL) subcutaneous pen injector magnesium oxide 400 mg (241.3 mg 400 mg PO DAILY #90 tab-cap 07/19/19 magnesium) tablet clindamycin HCl 300 mg PO TID #30 cap 09/08/19 empagliflozin 25 mg tablet 25 mg PO DAILY #90 tab-cap 09/10/19 Allergies Allergy/AdvReac Type Severity Reaction Status Date / Time bee venom protein (honey bee) Allergy Severe Swelling/Ed Verified 09/15/19 18:36 capri Penicillins Allergy Unknown Rash Verified 09/15/19 18:36 shellfish derived Allergy Unknown Rash; Verified 09/15/19 18:36 swelling General Stated Complaint: Cellulitis VAN: 3 Review of Systems Constitutional Constitutional: Denies fever(s) Integumentary/Breasts Skin/Breast: Reports as per [facility] Medical History Adult BMI > 30 (Chronic) ASCVD (arteriosclerotic cardiovascular disease) (Chronic 07/28/17) NSTEMI with HFrEF 07/11/2017 [place] MADONNA [place] [facility] [place]us of foot (Chronic) I advised to purchase pumice stone and gentle smooth out the surface of the callus. Chronic HFrEF (heart failure with reduced ejection fraction) (Chronic 07/20/18) LVEF 30-35% on index presentation improved to 50% on f/u echo Conductive hearing loss (Chronic 07/06/13) Depression (Chronic 11/25/11) Elevated ferritin level (Chronic 10/20/17) Erectile dysfunction (Chronic 07/06/13) Essential hypertension (Chronic 07/06/13) Gastroesophageal reflux disease (Chronic) Hyperlipidemia (Chronic 07/06/13) 11/2017 labwork: 10-year ASCVD risk = ~6.1% --> continue current high intensity statin therapy (h/o ASCVD) Hyperuricemia (Inactive) Hypomagnesemia (Acute) Microalbuminuria (Chronic) Noncompliance with medication regimen (Chronic 07/06/13) Nonproliferative diabetic retinopathy (Chronic) NSTEMI (non-ST elevated myocardial infarction) (Inactive 07/11/17) 06/2017: [place] [facility] [place] require DAPT for a minimum of 1 year Obstructive sleep apnea, adult (Chronic 10/31/14) Severe, C-pap, Dr. Almeida continue on CPAP therapy with mask of choice,heated humidification and ramp. pressure should be set at 12 cm/H2o,alternatively auto CPAP 8-14 cm/H2O can be used. (sleep study note cameron Pulmonary hypertension (Chronic 07/14/17) 07/14/17 mild pulm hypertension, mild pulm capillary wedge pressure, elevated left ventricular end diastolic pressure, one vessel CAD-LAD w/ stent oinsertion Restless leg syndrome (Chronic 10/31/14) Per Sleep Lab Dr. Bui Sensorineural hearing loss, bilateral (Chronic 11/24/17) Tubular adenoma of colon (Inactive 10/18/14) Type 2 diabetes mellitus with retinopathy, with long-term current use of insulin (Chronic 10/27/17) Surgical History Cholecystectomy (Resolved) Colonoscopy - IV Sedation (Resolved 10/14/14) tubular adenoma Dr. Blancas S/P coronary artery stent placement (Inactive) s/p MADONNA to LAD mid 2; Dr. 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 residential recycle driver: No Do you feel safe at home: Yes Do you feel safe in your relationship?: Yes Exam Const General: cooperative, comfortable and no acute distress Cardio Rate: regular rate Pulses: dorsalis pedis pulses present on the right 1+ Skin Lesions: lesion noted (Quarter size callus base of right foot with central cracking, no bleeding) Other: No inflammatory changes surrounding callus, no erythema, no fluctuance or induration Course Vital Signs Vital signs: Vital Signs Temperature 36.7 C 09/15/19 18:31 Pulse 82 09/15/19 18:31 Respiratory Rate 22 09/15/19 18:31 Blood Pressure 111/75 09/15/19 18:31 Pulse Oximetry 96 09/15/19 18:31 Temperature 36.7 C 09/15/19 18:31 Temperature Source Skin 09/15/19 18:31 Pulse 82 09/15/19 18:31 Respiratory Rate 22 09/15/19 18:31 Blood Pressure 111/75 09/15/19 18:31 Blood Pressure Position Sitting 09/15/19 18:31 Pulse Oximetry 96 09/15/19 18:31 Oxygen Delivery Method Room Air 09/15/19 18:31 Oxygen Flow Rate 0 09/15/19 18:31 Pain Level 0 09/15/19 18:31
== END 2019-09-15 19:10 | disposition home or self-care (01) ==
LOC: ER 18:54
PROVIDERS: Emergency Provider Student in an Organized Health Care Education/Training Program; PCP Nurse Practitioner Family
DX: E11.621 Type 2 diabetes mellitus with foot ulcer (principal); L84 Corns and callosities; I10 Essential (primary) hypertension
CPT/HCPCS: 36415; 36416; 80053; 82962; 99283; 85025

== ENCOUNTER 2019-10-15 19:43 | Emergency (ER) | payer BC, SELFPAY ==
[2019-10-15 19:47] VITALS: BP 141/77; PULSE 98; RESP 19; TEMP 36.8; O2SAT 96
--- NOTE | 2019-10-15 19:57 | W.ED.GENAD ---
Discharge Plan Disposition Patient Disposition: HOME Condition: Good Discharge Details Chief Complaint: RashLesion Clinical Impression: Purpura Primary Care Provider: Camilla Sherman ED Provider: Cindy Snow Home Meds and New Rx's Prescriptions: Continued Victoza 3-Alfonso 0.6 mg/0.1 mL (18 mg/3 mL) pen injector 1.8 mg SC DAILY Qty: 9 RF: 3 magnesium oxide 400 mg (241.3 mg magnesium) tablet 400 mg PO DAILY Qty: 90 RF: 0 (DME) lancets 1 EACH misc 1 ea Miscellaneous QID Qty: 350 RF: 3 (DME) pen needle, diabetic 1 EACH needle Miscellaneous TID Qty: 300 RF: 3 sertraline [Zoloft] 100 mg tablet 100 mg PO DAILY Qty: 90 RF: 3 metformin 1,000 mg tablet 1,000 mg PO BID Qty: 180 RF: 3 nitroglycerin 0.4 mg tablet, sublingual 0.4 mg SL Q5M MDD 3 doses PRN (Reason: chest pain) Qty: 30 RF: 0 aspirin 81 mg tablet,chewable 81 mg PO DAILY Qty: 90 RF: 3 (DME) FreeStyle Flako 14 Day Sensor kit See Dose Instructions .ROUTE .MEDSUPPLY Qty: 1 RF: 0 (DME) Blood Glucose Test Strip See Rx Instructions .ROUTE .MEDSUPPLY Qty: 400 RF: 3 pantoprazole 40 mg tablet,delayed release (DR/EC) 40 mg PO QAM Qty: 90 RF: 3 Jardiance 25 mg tablet 25 mg PO DAILY Qty: 90 RF: 3 Novolog Flexpen U-100 Insulin 100 unit/mL (3 mL) insulin pen See Rx Instructions SC AC Qty: 15 RF: 3 insulin regular hum U-500 conc 500 unit/mL (3 mL) insulin pen See Rx Instructions SC BID Qty: 6 RF: 3 lisinopril 5 mg tablet 5 mg PO DAILY Qty: 90 RF: 3 metoprolol succinate 100 mg tablet extended release 24 hr 150 mg PO DAILY Qty: 135 RF: 3 rosuvastatin [Crestor] 40 mg tablet 40 mg PO HS Qty: 90 RF: 3 clopidogrel [Plavix] 75 mg Tablet 75 mg PO DAILY Qty: 30 RF: 0 Discharge Instructions Instructions: Hydrocortisone (On the skin), Purpura (ED) Additional Instructions: Encourage hydration. Please monitor your glucose closely. Please contact your venue attendant tomorrow to reschedule appointment. If you develop fever/chills, spreading of the rash, pain with rash, have blood in your stool, blood in your urine, coughing up blood or have other new/worsening symptoms please seek care urgently once again. Otherwise, please follow-up with primary care this week for reevaluation. Referrals: Camilla Sherman NP [Primary Care Provider] - Discharge Data Discharge Date/Time-TO BE ENTERED AT DEPARTURE: 10/15/19 20:31 Medical Decision Making Patient is a 53-year-old male with history of hypomagnesemia, GERD, hyperuricemia, callus of the right foot, insulin-dependent type 2 diabetes, hypertension, VIVIANE, and STEMI, hyperlipidemia, depression, chronic heart failure with reduced ejection fraction, aortic sclerotic cardiovascular disease. He reports that this afternoon he was getting to the shower when he noted a rash to bilateral lower extremities. States of 5 today, these areas have been slightly itchy and he has been scratching at them. Is currently reporting that he has absolutely no symptoms. Is denying any itching, pain. No recent fevers or chills. Denies any chest pain, shortness of breath. Has not noted easy bleeding. Patient is on Plavix and has been taking this as prescribed. Denies any paresthesia, melena, hemoptysis, hematuria. Has not noted bleeding in his gums. Patient does see a accounting methods analyst regularly for a large callus on his right foot. Missed an appointment with them today. Patient is nondiabetic and reports that his glucose is typically in the 200s. On exam, patient has purpura rash but this area is also scaly consistent with dry skin. Patient was also evaluated by Dr. Gordon. He agrees with assesment of dry skin with non palpable purpura. Without systemic symptoms or evidence of bleeding, he felt that this is most consistent with hypersensitivity vasculitis, likely linked to his boots that he wears at work. He has a new pair of boots being made through podiatry. Dr. Gordon advised hydrocortisone cream be applied to rash Discussed these findings and recommendations with the patient in depth. Patient was given strict return precautions. He will be begun on the hydrocortisone this evening. Advised follow-up with primary care this week. He will also call accounting methods analyst tomorrow to schedule follow-up appointment. All of his questions or concerns were addressed and is in agreement this plan HPI General Mode of arrival: ambulatory. Date/Time Provider Initiated Documentation: 10/15/19 19:57. Limitations to Documentation: no limitations. Information obtained by: RN notes reviewed. History of Present Illness 53 year old M presents to the emergency department with the chief complaint of rash to bilateral lower extremities, described as mild, Quality is described as other (denies feeling hte rash, patient visualized this evening during shower), and is localized to the left, right and lower extremity. Patient reports no radiation. Patient started experiencing this hour(s) and it has been constant. No relieving factors improve symptom(s), No exacerbating factors reported . Patient notes no other symptoms.. Patient did receive the following treatments prior to arrival, none Related Data Home Medications Medication Instructions Recorded Confirmed lancets #350 ea 08/24/17 10/15/19 pen needle, diabetic #300 03/02/18 10/15/19 sertraline 100 mg tablet 100 mg PO DAILY #90 tab-cap 09/13/18 10/15/19 metformin 1,000 mg tablet 1,000 mg PO BID #180 tab-cap 12/08/18 10/15/19 nitroglycerin 0.4 mg sublingual 0.4 mg SL Q5M PRN #30 tab-cap MDD 01/08/19 10/15/19 tablet 3 doses aspirin 81 mg chewable tablet 81 mg PO DAILY #90 tab-cap 01/18/19 10/15/19 clopidogrel [Plavix] 75 mg PO DAILY #30 tab 02/15/19 10/15/19 flash glucose sensor #1 each 05/03/19 10/15/19 blood sugar diagnostic #400 each 06/22/19 10/15/19 pantoprazole 40 mg tablet,delayed 40 mg PO QAM #90 tab-cap 06/28/19 10/15/19 release liraglutide 0.6 mg/0.1 mL (18 mg/3 1.8 mg SC DAILY #9 ml 07/19/19 10/15/19 mL) subcutaneous pen injector magnesium oxide 400 mg (241.3 mg 400 mg PO DAILY #90 tab-cap 07/19/19 10/15/19 magnesium) tablet empagliflozin 25 mg tablet 25 mg PO DAILY #90 tab-cap 09/10/19 10/15/19 insulin aspart U-100 100 unit/mL See Rx Instructions SC AC #15 ml 10/04/19 10/15/19 (3 mL) subcutaneous pen insulin regular hum U-500 conc See Rx Instructions SC BID #6 ml 10/04/19 10/15/19 lisinopril 5 mg tablet 5 mg PO DAILY #90 tab-cap 10/04/19 10/15/19 metoprolol succinate 100 mg 150 mg PO DAILY #135 tab-cap 10/04/19 10/15/19 tablet,extended release 24 hr rosuvastatin 40 mg tablet 40 mg PO HS #90 tab-cap 10/04/19 10/15/19 Previous Rx's Medication Instructions Recorded lancets #350 ea 08/24/17 sertraline 100 mg tablet 100 mg PO DAILY #90 tab-cap 09/13/18 metformin 1,000 mg tablet 1,000 mg PO BID #180 tab-cap 12/08/18 nitroglycerin 0.4 mg sublingual 0.4 mg SL Q5M PRN #30 tab-cap MDD 01/08/19 tablet 3 doses aspirin 81 mg chewable tablet 81 mg PO DAILY #90 tab-cap 01/18/19 clopidogrel [Plavix] 75 mg PO DAILY #30 tab 02/15/19 flash glucose sensor #1 each 05/03/19 blood sugar diagnostic #400 each 06/22/19 pantoprazole 40 mg tablet,delayed 40 mg PO QAM #90 tab-cap 06/28/19 release liraglutide 0.6 mg/0.1 mL (18 mg/3 1.8 mg SC DAILY #9 ml 07/19/19 mL) subcutaneous pen injector magnesium oxide 400 mg (241.3 mg 400 mg PO DAILY #90 tab-cap 07/19/19 magnesium) tablet empagliflozin 25 mg tablet 25 mg PO DAILY #90 tab-cap 09/10/19 insulin aspart U-100 100 unit/mL See Rx Instructions SC AC #15 ml 10/04/19 (3 mL) subcutaneous pen insulin regular hum U-500 conc See Rx Instructions SC BID #6 ml 10/04/19 lisinopril 5 mg tablet 5 mg PO DAILY #90 tab-cap 10/04/19 metoprolol succinate 100 mg 150 mg PO DAILY #135 tab-cap 10/04/19 tablet,extended release 24 hr rosuvastatin 40 mg tablet 40 mg PO HS #90 tab-cap 10/04/19 Allergies Allergy/AdvReac Type Severity Reaction Status Date / Time bee venom protein (honey bee) Allergy Severe Swelling/Ed Verified 10/15/19 20:07 capri Penicillins Allergy Unknown Rash Verified 10/15/19 20:07 shellfish derived Allergy Unknown Rash; Verified 10/15/19 20:07 swelling General Stated Complaint: RashLesion VAN: 4 Review of Systems Constitutional Constitutional: Reports as per HPI, Denies chills and Denies fever(s) ENT Ears, Nose, Mouth, and Throat: Denies bleeding gums Cardiovascular Cardiovascular: Denies chest pain, Denies chest pain at rest, Denies diaphoresis, Denies claudication, Denies leg ulcers, Denies leg edema, Denies lightheadedness, Denies palpitations, Denies dyspnea and Reports dyspnea on exertion (chronic SOB when going up stairs >1 year) Respiratory Respiratory: Denies cough, Denies hemoptysis, Denies dyspnea and Reports dyspnea on exertion (chronic SOB when going up stairs >1 year) Gastrointestinal Gastrointestinal: Denies melena and Denies hematochezia Genitourinary Genitourinary: Denies hematuria Musculoskeletal Musculoskeletal: Reports as per HPI Integumentary/Breasts Skin/Breast: Reports as per HPI Neurologic Neurologic: Reports as per HPI, Denies sensory deficit and Denies paresthesias Endocrine Endocrine: Denies palpitations [facility] Medical History Adult BMI > 30 (Chronic) ASCVD (arteriosclerotic cardiovascular disease) (Chronic 07/28/17) NSTEMI with HFrEF 07/11/2017 [place]AD[place]NA [place] [facility] [place]us of foot (Chronic) I advised to purchase pumice stone and gentle smooth out the surface of the callus. Chronic HFrEF (heart failure with reduced ejection fraction) (Chronic 07/20/18) LVEF 30-35% on index presentation improved to 50% on f/u echo Conductive hearing loss (Chronic 07/06/13) Depression (Chronic 11/25/11) Elevated ferritin level (Chronic 10/20/17) Erectile dysfunction (Chronic 07/06/13) Essential hypertension (Chronic 07/06/13) Gastroesophageal reflux disease (Chronic) Hyperlipidemia (Chronic 07/06/13) 11/2017 labwork: 10-year ASCVD risk = ~6.1% --> continue current high intensity statin therapy (h/o ASCVD) Hyperuricemia (Inactive) Hypomagnesemia (Acute) Microalbuminuria (Chronic) Noncompliance with medication regimen (Chronic 07/06/13) Nonproliferative diabetic retinopathy (Chronic) NSTEMI (non-ST elevated myocardial infarction) (Inactive 07/11/17) 06/2017: [place] [facility] [place] require DAPT for a minimum of 1 year Obstructive sleep apnea, adult (Chronic 10/31/14) Severe, C-pap, Dr. Almeida continue on CPAP therapy with mask of choice,heated humidification and ramp. pressure should be set at 12 cm/H2o,alternatively auto CPAP 8-14 cm/H2O can be used. (sleep study note cameron Pulmonary hypertension (Chronic 07/14/17) 07/14/17 mild pulm hypertension, mild pulm capillary wedge pressure, elevated left ventricular end diastolic pressure, one vessel CAD-LAD w/ stent oinsertion Restless leg syndrome (Chronic 10/31/14) Per Sleep Lab Dr. Bui Sensorineural hearing loss, bilateral (Chronic 11/24/17) Tubular adenoma of colon (Inactive 10/18/14) Type 2 diabetes mellitus with retinopathy, with long-term current use of insulin (Chronic 10/27/17) Surgical History Cholecystectomy (Resolved) Colonoscopy - IV Sedation (Resolved 10/14/14) tubular adenoma Dr. Blancas S/P coronary artery stent placement (Inactive) s/p MADONNA to LAD mid 2; Dr. Fercho Eddy, [facility], 07/14/2017 Social History Smoking/Tobacco Use Status: Never Alcohol Intake: never Drug use: Never Substance use type: does not use Household members: spouse Housing: apartment Number of Children: 1 Communication Needs: None 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 patient transportation driver: No Do you feel safe at home: Yes Do you feel safe in your relationship?: Yes Exam Const General: cooperative, healthy appearing, comfortable, no acute distress and well developed Nutritional Appearance: well nourished and overweight Orientation: alert and awake Resp Effort & Inspection: normal respiratory effort, able to speak in complete sentences and no respiratory distress Auscultation: clear to auscultation bilaterally Cardio Rate: regular rate Rhythm: regular rhythm Heart Sounds: S1 normal and S2 normal Neuro General: alert and awake Cognition: normal cognition Speech: speech normal Gait: normal gait Sensory Exam: no sensory deficits noted Extrem Upper/lower leg/hip images: 1. 2. areas of rash. Patient has 2+ distal pulses, calves are soft and nontender. No pedal edema. Has scattered dry/scaly areas of skin over nonpalpable purpura. Non blanchable. Anterior only. Psych Appearance: grossly normal and well kempt Mental Status: mental status grossly normal Speech and Movement: speech and movement normal Course Vital Signs Vital signs: Vital Signs Temperature 36.8 C 10/15/19 19:47 Pulse 98 H 10/15/19 19:47 Respiratory Rate 10/15/19 19:47 Blood Pressure 141/77 H 10/15/19 19:47 Pulse Oximetry 96 10/15/19 19:47 Temperature 36.8 C 10/15/19 19:47 Temperature Source Skin 10/15/19 19:47 Pulse 98 H 10/15/19 19:47 Respiratory Rate 10/15/19 19:47 Blood Pressure 141/77 H 10/15/19 19:47 Blood Pressure Position Sitting 10/15/19 19:47 Pulse Oximetry 96 10/15/19 19:47 Oxygen Delivery Method Room Air 10/15/19 19:47 Oxygen Flow Rate 0 10/15/19 19:47 Pain Level 0 10/15/19 19:47
[2019-10-15] MEDS: Hydrocortisone 1% CR 30 GM TUBE TP (20:19)
== END 2019-10-15 20:31 | disposition home or self-care (01) ==
PROVIDERS: Emergency Provider Physician Assistant; PCP Nurse Practitioner Family
DX: D69.2 Other nonthrombocytopenic purpura (principal); I50.9 Heart failure, unspecified; I11.0 Hypertensive heart disease with heart failure; E11.9 Type 2 diabetes mellitus without complications; Z79.4 Long term (current) use of insulin
CPT/HCPCS: 99282

== ENCOUNTER 2019-12-26 15:07 | Emergency (ER) | payer BC, SELFPAY ==
[2019-12-26] VITALS (35 sets, daily range): BP systolic 128–155; BP diastolic 67–97; PULSE 83–113; RESP 13–38; TEMP 36.6; O2SAT 94–97
--- NOTE | 2019-12-26 15:20 | DI.RAD_ITS ---
EXAM: XR PORTABLE CHEST AP CLINICAL HISTORY: CENTRAL LEFT CHEST PAIN. TECHNIQUE: 2D digital imaging was performed. COMPARISON: XR PORTABLE CHEST AP from 02/13/2019 FINDINGS: LUNGS: Clear. No pleural abnormality seen. HEART: Normal. MEDIASTINUM: Normal. OTHER FINDINGS: None. IMPRESSION: No acute pulmonary findings.
--- NOTE | 2019-12-26 15:25 | ED.GENADUL_ITS ---
Discharge Plan Disposition Patient Disposition: [facility] Condition: Good Discharge Details Chief Complaint: Chest Pain Clinical Impression: Chest pain Primary Care Provider: Camilla Sherman ED Provider: Jaime Taylor Home Meds and New Rx's Prescriptions: No Action Victoza 3-Alfonso 0.6 mg/0.1 mL (18 mg/3 mL) pen injector 1.8 mg SC DAILY Qty: 9 RF: 3 magnesium oxide 400 mg (241.3 mg magnesium) tablet 400 mg PO DAILY Qty: 90 RF: 0 sertraline [Zoloft] 100 mg tablet 150 mg PO DAILY Qty: 145 RF: 3 rosuvastatin [Crestor] 40 mg tablet 40 mg PO HS Qty: 90 RF: 3 triamcinolone acetonide 0.5 % cream 1 applic TP .BID-QID Qty: 15 RF: 0 ammonium lactate 12 % cream 1 applic TP QD-BID PRN (Reason: dry skin) Qty: 140 RF: 3 (DME) lancets 1 EACH misc 1 ea Miscellaneous QID Qty: 350 RF: 3 (DME) pen needle, diabetic 1 EACH needle Miscellaneous TID Qty: 300 RF: 3 metformin 1,000 mg tablet 1,000 mg PO BID Qty: 180 RF: 3 nitroglycerin 0.4 mg tablet, sublingual 0.4 mg SL Q5M MDD 3 doses PRN (Reason: chest pain) Qty: 30 RF: 0 aspirin 81 mg tablet,chewable 81 mg PO DAILY Qty: 90 RF: 3 (DME) FreeStyle Flako 14 Day Sensor kit See Dose Instructions .ROUTE .MEDSUPPLY Qty: 1 RF: 0 (DME) Blood Glucose Test Strip See Rx Instructions .ROUTE .MEDSUPPLY Qty: 400 RF: 3 pantoprazole 40 mg tablet,delayed release (DR/EC) 40 mg PO QAM Qty: 90 RF: 3 Jardiance 25 mg tablet 25 mg PO DAILY Qty: 90 RF: 3 insulin aspart U-100 [Novolog Flexpen U-100 Insulin] 100 unit/mL (3 mL) insulin pen See Rx Instructions SC AC Qty: 15 RF: 3 insulin regular hum U-500 conc 500 unit/mL (3 mL) insulin pen See Rx Instructions SC BID Qty: 6 RF: 3 lisinopril 5 mg tablet 5 mg PO DAILY Qty: 90 RF: 3 metoprolol succinate 100 mg tablet extended release 24 hr 150 mg PO DAILY Qty: 135 RF: 3 clopidogrel [Plavix] 75 mg Tablet 75 mg PO DAILY Qty: 30 RF: 0 Medical Decision Making 54-year-old male with a past medical history of coronary artery disease with stent, hypertension, high cholesterol, diabetes, who presents today for evaluation of chest pain. Patient states that earlier this morning while resting he developed mild sternal left-sided chest pain and achiness. No radiation to his arm neck or shoulder. He took 1 nitroglycerin at 1 PM and had a slight improvement of his symptoms. Then later today 2 PM when he stood up he got lightheaded, and syncopized and this was at 2 PM. His chest pain continued throughout the day, and EMS was called, he was given 2 nitroglycerin by EMS, this notably improved his symptomatology. He was brought to the ER for further evaluation. Currently the patient has mild to moderate chest pain. He denies any tearing or ripping sensation. He denies history of PE, DVT, dissection or aneurysm. He does take aspirin and Plavix daily. He states that this feels slightly different than when he had his myocardial infarction in the past. Physical exam is notably unremarkable, lung sounds are clear, no calf tenderness. No tearing or ripping sensation, normal pulses bilaterally, vital signs stable. Patient has continued pain, he was given nitroglycerin ointment and had near complete resolution of his pain after this. Differential at this time includes cardiac etiology, pneumonia, signs and symptoms are clinically inconsistent with dissection at this time. We will continue to monitor closely. With the patient's resolution of his pain with the nitroglycerin I feel most concerned for cardiac etiology. 8:36 PM Patient's troponin has returned normal, EKG shows no evidence of STEMI. White count normal hemoglobin normal. Chest x-ray negative for acute process. Bedside personally limited cardiac echo demonstrates a small trace pericardial effusion, no focal hypokinesis that I can appreciate. Ejection fraction appears to be roughly around 45 to 50%. Patient's pain is nearly completely resolved with the nitroglycerin ointment. Patient feels well. With the patient's notable cardiac disease, in conjunction with his symptomatology that is relieved with nitroglycerin I am concerned for potential cardiac etiology. At this time his symptoms appear clinically inconsistent with dissection or aneurysm or PE. We did attempt to admit the patient here, Dr. Friedman did accept the patient, however we are informed shortly thereafter that there is no staffing available for the bed that was currently available here at [facility]. Because of this the patient will require transfer. We did contact Marie and I spoke with Fallon Olivares, she agrees with the assessment and plan, patient will be admitted under to [facility]. I have extensively reviewed the treatment plan with the patient. I have addressed all patient concerns at this time. I have also discussed the plan with the admitting physician and they agree with the current assessment and plan and have agreed to assume responsibility for the patient. All parties demonstrate verbal understanding and agreement with our assessment and plan at this time. At time of transfer the patient was reassessed and continued to demonstrate current medical stability. No signs of acute respiratory distress requiring intubation, hemodynamic instability requiring pressor support, or rapidly declining mental status. The patient is stable for transport. EKG 15: 10 Rate 107, sinus tachycardia, [place] 174, QTc 470, QRS 112, sinus tachycardia with a left axis anterior fascicular block, no significant ST elevations or depressions, mild artifact. No evidence of STEMI. No significant changes from prior EKG of 05/15/2019 FINDINGS: LUNGS: Clear. No pleural abnormality seen. HEART: Normal. MEDIASTINUM: Normal. OTHER FINDINGS: None. IMPRESSION: No acute pulmonary findings. HPI General Date/Time Provider Initiated Documentation: 12/26/19 15:12 . HPI Narrative: 54-year-old male with a past medical history of coronary artery disease with stent, hypertension, high cholesterol, diabetes, who presents today for evaluation of chest pain. Patient states that earlier this morning while resting he developed mild sternal left-sided chest pain and achiness. No radiation to his arm neck or shoulder. He took 1 nitroglycerin at 1 PM and had a slight improvement of his symptoms. Then later today 2 PM when he stood up he got lightheaded, and syncopized and this was at 2 PM. His chest pain continued throughout the day, and EMS was called, he was given 2 nitroglycerin by EMS, this notably improved his symptomatology. He was brought to the ER for further evaluation. Currently the patient has mild to moderate chest pain. He denies any tearing or ripping sensation. He denies history of PE, DVT, dissection or aneurysm. He does take aspirin and Plavix daily. He states that this feels slightly different than when he had his myocardial infarction in the past. He denies any other complaints at this time. No other modifying factors. Related Data Home Medications Medication Instructions Recorded Confirmed lancets #350 ea 08/24/17 12/26/19 pen needle, diabetic #300 03/02/18 12/26/19 metformin 1,000 mg tablet 1,000 mg PO BID #180 tab-cap 12/08/18 12/26/19 nitroglycerin 0.4 mg sublingual 0.4 mg SL Q5M PRN #30 tab-cap MDD 01/08/19 12/26/19 tablet 3 doses aspirin 81 mg chewable tablet 81 mg PO DAILY #90 tab-cap 01/18/19 12/26/19 clopidogrel [Plavix] 75 mg PO DAILY #30 tab 02/15/19 12/26/19 flash glucose sensor #1 each 05/03/19 12/26/19 blood sugar diagnostic #400 each 06/22/19 12/26/19 pantoprazole 40 mg tablet,delayed 40 mg PO QAM #90 tab-cap 06/28/19 12/26/19 release liraglutide 0.6 mg/0.1 mL (18 mg/3 1.8 mg SC DAILY #9 ml 07/19/19 12/26/19 mL) subcutaneous pen injector magnesium oxide 400 mg (241.3 mg 400 mg PO DAILY #90 tab-cap 07/19/19 12/26/19 magnesium) tablet empagliflozin 25 mg tablet 25 mg PO DAILY #90 tab-cap 09/10/19 12/26/19 insulin aspart U-100 100 unit/mL See Rx Instructions SC AC #15 ml 10/04/19 12/26/19 (3 mL) subcutaneous pen insulin regular hum U-500 conc See Rx Instructions SC BID #6 ml 10/04/19 12/26/19 lisinopril 5 mg tablet 5 mg PO DAILY #90 tab-cap 10/04/19 12/26/19 metoprolol succinate 100 mg 150 mg PO DAILY #135 tab-cap 10/04/19 12/26/19 tablet,extended release 24 hr ammonium lactate 12 % topical cream 1 applic TP QD-BID PRN #140 gm 10/19/19 12/26/19 triamcinolone acetonide 0.5 % 1 applic TP .BID-QID #15 gm 10/19/19 12/26/19 topical cream rosuvastatin 40 mg tablet 40 mg PO HS #90 tab-cap 11/22/19 12/26/19 sertraline 100 mg tablet 150 mg PO DAILY #145 tab-cap 11/22/19 12/26/19 Previous Rx's Medication Instructions Recorded lancets #350 ea 08/24/17 metformin 1,000 mg tablet 1,000 mg PO BID #180 tab-cap 12/08/18 nitroglycerin 0.4 mg sublingual 0.4 mg SL Q5M PRN #30 tab-cap MDD 01/08/19 tablet 3 doses aspirin 81 mg chewable tablet 81 mg PO DAILY #90 tab-cap 01/18/19 clopidogrel [Plavix] 75 mg PO DAILY #30 tab 02/15/19 flash glucose sensor #1 each 05/03/19 blood sugar diagnostic #400 each 06/22/19 pantoprazole 40 mg tablet,delayed 40 mg PO QAM #90 tab-cap 06/28/19 release liraglutide 0.6 mg/0.1 mL (18 mg/3 1.8 mg SC DAILY #9 ml 07/19/19 mL) subcutaneous pen injector magnesium oxide 400 mg (241.3 mg 400 mg PO DAILY #90 tab-cap 07/19/19 magnesium) tablet empagliflozin 25 mg tablet 25 mg PO DAILY #90 tab-cap 09/10/19 insulin aspart U-100 100 unit/mL See Rx Instructions SC AC #15 ml 10/04/19 (3 mL) subcutaneous pen insulin regular hum U-500 conc See Rx Instructions SC BID #6 ml 10/04/19 lisinopril 5 mg tablet 5 mg PO DAILY #90 tab-cap 10/04/19 metoprolol succinate 100 mg 150 mg PO DAILY #135 tab-cap 10/04/19 tablet,extended release 24 hr ammonium lactate 12 % topical cream 1 applic TP QD-BID PRN #140 gm 10/19/19 triamcinolone acetonide 0.5 % 1 applic TP .BID-QID #15 gm 10/19/19 topical cream rosuvastatin 40 mg tablet 40 mg PO HS #90 tab-cap 11/22/19 sertraline 100 mg tablet 150 mg PO DAILY #145 tab-cap 11/22/19 Allergies Allergy/AdvReac Type Severity Reaction Status Date / Time bee venom protein (honey bee) Allergy Severe Swelling/Ed Verified 12/26/19 15:11 capri Penicillins Allergy Unknown Rash Verified 12/26/19 15:11 shellfish derived Allergy Unknown Rash; Verified 12/26/19 15:11 swelling General Stated Complaint: Chest Pain VAN: 2 Review of Systems All systems reviewed & are unremarkable except as noted in HPI and below PFSH Medical History Adult BMI > 30 (Chronic) ASCVD (arteriosclerotic cardiovascular disease) (Chronic 07/28/17) NSTEMI with HFrEF 07/11/2017 s/p MADONNA to mLAD on 07/14/2017 at [facility] [place] Callus of foot (Chronic) I advised to purchase pumice stone and gentle smooth out the surface of the callus. Chronic HFrEF (heart failure with reduced ejection fraction) (Chronic 07/20/18) LVEF 30-35% on index presentation improved to 50% on f/u echo Conductive hearing loss (Chronic 07/06/13) Depression (Chronic 11/25/11) Elevated ferritin level (Chronic 10/20/17) Erectile dysfunction (Chronic 07/06/13) Essential hypertension (Chronic 07/06/13) Gastroesophageal reflux disease (Chronic) Hyperlipidemia (Chronic 07/06/13) 11/2017 labwork: 10-year ASCVD risk = ~6.1% --> continue current high intensity statin therapy (h/o ASCVD) Hyperuricemia (Inactive) Hypomagnesemia (Acute) Microalbuminuria (Chronic) Noncompliance with medication regimen (Chronic 07/06/13) Nonproliferative diabetic retinopathy (Chronic) NSTEMI (non-ST elevated myocardial infarction) (Inactive 07/11/17) 06/2017: S/p MADONNA to mLAD at [facility] Will require DAPT for a minimum of 1 year Obstructive sleep apnea, adult (Chronic 10/31/14) Severe, C-pap, Dr. Almeida continue on CPAP therapy with mask of choice,heated humidification and ramp. pressure should be set at 12 cm/H2o,alternatively auto CPAP 8-14 cm/H2O can be used. (sleep study note cameron Pulmonary hypertension (Chronic 07/14/17) 07/14/17 mild pulm hypertension, mild pulm capillary wedge pressure, elevated left ventricular end diastolic pressure, one vessel CAD-LAD w/ stent oinsertion Restless leg syndrome (Chronic 10/31/14) Per Sleep Lab Dr. Bui Sensorineural hearing loss, bilateral (Chronic 11/24/17) Tubular adenoma of colon (Inactive 10/18/14) Type 2 diabetes mellitus with retinopathy, with long-term current use of insulin (Chronic 10/27/17) Surgical History Cholecystectomy (Resolved) Colonoscopy - IV Sedation (Resolved 10/14/14) tubular adenoma Dr. Blancas S/P coronary artery stent placement (Inactive) s/p AMDONNA to LAD mid 2; Dr. 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 3.ENT: Atraumatic external nose and ears. Moist MM. Neck: Symmetric, trachea midline, No thyromegaly. 4.CVS: +S1/S2, No murmurs or gallops. Peripheral pulses 2+ and equal in all extremities. Brisk capillary refill in all extremities. Radial pulses +2 bilaterally. 5.RESP: Unlabored respiratory effort. Clear to auscultation bilaterally. No wheezes rales or rhonchi 6.GI: Soft, Nontender/Nondistended, No hepatosplenomegaly. No guarding or rebound. 7.MSK: Normocephalic/Atraumatic, Extremities w/o deformity or ttp No cyanosis or clubbing, Normal movement of all extremities, no calf tenderness. 8.Skin: Warm, Dry. No rashes or lesions. 9.Neuro: associate justice II-XII grossly intact. Sensation grossly intact, no focal neurologic deficits. 10.Psych: (AAO) x3. Appropriate mood and affect Course Vital Signs Vital signs: Vital Signs Temperature 36.6 C 12/26/19 15:08 Pulse 113 H 12/26/19 15:08 Respiratory Rate 13 12/26/19 15:08 Blood Pressure 148/93 H 12/26/19 15:08 Pulse Oximetry 95 12/26/19 15:08 Temperature 36.6 C 12/26/19 15:08 Temperature Source Temporal Artery Scan 12/26/19 15:08 Pulse 113 H 12/26/19 15:08 Respiratory Rate 13 12/26/19 15:08 Blood Pressure 148/93 H 12/26/19 15:08 Blood Pressure Position Supine 12/26/19 15:08 Pulse Oximetry 95 12/26/19 15:08 Oxygen Delivery Method Room Air 12/26/19 15:08 Oxygen Flow Rate 0 12/26/19 15:08
[2019-12-26 15:27] LABS: Abs Immature Grans 0.01 k/cumm (0.0-0.09); Absolute Basophil Count 0.03 k/cumm (0.0-0.2); Absolute Eosinophil Count 0.31 k/cumm (0.0-0.7); Absolute Monocyte Count 0.67 k/cumm (0.11-0.7); Absolute Neutrophil Count 3.33 k/cumm (1.2-6.7); Basophils % 0.5; Eosinophils % 4.8; HCT 41.3 % (40.0-50.0); HGB 14.4 g/dL (13.5-17.5); Immature Grans % 0.2 %; Lymphocytes % 32.6; Mean Corp. HGB Concentration 34.9 g/dL (32.0-36.0); Mean Corpuscular Hemoglobin 30.5 pg (27.0-33.0); Mean Corpuscular Volume 87.5 fL (80-95); Monocytes % 10.4; Neutrophils % 51.5; Platelet Count 245 x1000/uL (130-400); RBC 4.72 m/cumm (4.50-6.00); RBC Distribution Width 12.8 % (11.8-14.1); White Blood Cell Count 6.45 k/cumm (4.4-10.8)
[2019-12-26 15:39] LABS: INR 1.1 (0.9-1.1); PTT Activated 29.6 sec (21.0-31.4); Prothrombin Time 11.1 sec (9.3-11.0)
[2019-12-26 15:43] LABS: ALT 30 U/L (16-63); AST 15 U/L (15-37); Albumin 3.4 g/dL (3.4-5.0); Alkaline Phosphatase 130 U/L (46-116); BUN 12 mg/dL (7-18); Bilirubin, Total 0.4 mg/dL (0.2-1.0); CREATININE 0.85 mg/dL (0.70-1.30); Calcium 9.1 mg/dL (8.5-10.1); Chloride 105 mmol/L (98-107); Glucose 206 mg/dL (74-106); Lipase 108 U/L (73-393); Potassium 4.2 mmol/L (3.5-5.1); Sodium 139 mmol/L (136-145); Total Protein 6.7 g/dL (6.4-8.2)
[2019-12-26 15:48] LABS: Troponin I < 0.05 ng/Ml (<0.06)
--- NOTE | 2019-12-26 16:00 | NUR.NOTE ---
pt states that he has no money and no insurance . he is running out of all of his med sof Nursing Note:
--- NOTE | 2019-12-26 16:50 | CMPROGNOTE_ITS ---
- If Service Date Differs Date of service: 12/26/19 Time of Service: 16:50 Care Management Progress Note Ganesh is a 54 year old male who lives in [facility] with his , My. He is seen in the ED today for chest pain. FABI meets with Edward and his at the request of the ED provider. Edward reports he is currently unemployed. He has no health insurance, but has applied for Medicaid and is awaiting a determination. Due to lack of health insurance, Edward has been unable to pay for his medications and has been out of some of his meds for at least a week. P: FABI facilitates a referral to [facility] and speaks with Lyla who advises she will outreach to Edward tomorrow morning.
[2019-12-26 18:21] LABS: Troponin I < 0.05 ng/Ml (<0.06)
--- NOTE | 2019-12-26 19:43 | HPE_ITS ---
Date of service: 12/26/19 Time of Service: 19:44 Assessment and Plan Assessment and plan (1) Chest pain: Status: Acute Assessment and plan: CP. Improvement with NTG is non-specific, and negative troponin and no EKG changes is reassuring to a degree regarding ADS. Still patient at increased risk. Will complete troponin series, consider repeat MPI if negative. I do note some evidence in support of chest wall pain, though by no means diagnostic at all. Otherwise usual meds as is, except will cover sugars with sliding scale in place of scheduled evening dose of regular. History of Present Illness History of Present Illness Chief Complaint: CP Narrative: 54 male with h/o CAD, s/p OK 2017, no CP since, negative MPI 05/09. Today, at rest, noted left sided CP, non-radiating, associated with perhaps some diaphoresis and lightheadedness. NYG w/o help. EMS summoned. Received additional NTG and here in ER Nitro paste. Initial EKG (with CP) shows NSR, LAD. poor RW progression -- all no change from baseline. CXR negative, troponin x 2 negative. States pain is improved though not gone. Admitted for further management. States that today's pain is entirely different from that he had during [place]. Review of Systems All systems reviewed & are unremarkable except as noted in HPI and below PFSH Medical History Adult BMI > 30 (Chronic) ASCVD (arteriosclerotic cardiovascular disease) (Chronic 07/28/17) NSTEMI with HFrEF 07/11/2017 s/p MADONNA to [place]AD [place] 07[place]14[place] [facility] [place]us of foot (Chronic) I advised to purchase pumice stone and gentle smooth out the surface of the callus. Chronic HFrEF (heart failure with reduced ejection fraction) (Chronic 07/20/18) LVEF 30-35% on index presentation improved to 50% on f/u echo Conductive hearing loss (Chronic 07/06/13) Depression (Chronic 11/25/11) Elevated ferritin level (Chronic 10/20/17) Erectile dysfunction (Chronic 07/06/13) Essential hypertension (Chronic 07/06/13) Gastroesophageal reflux disease (Chronic) Hyperlipidemia (Chronic 07/06/13) 11/2017 labwork: 10-year ASCVD risk = ~6.1% --> continue current high intensity statin therapy (h/o ASCVD) Hyperuricemia (Inactive) Hypomagnesemia (Acute) Microalbuminuria (Chronic) Noncompliance with medication regimen (Chronic 07/06/13) Nonproliferative diabetic retinopathy (Chronic) NSTEMI (non-ST elevated myocardial infarction) (Inactive 07/11/17) 06/2017: S/[place] MADONNA to [place] [facility] Will require DAPT for a minimum of 1 year Obstructive sleep apnea, adult (Chronic 10/31/14) Severe, C-pap, Dr. Almeida continue on CPAP therapy with mask of choice,heated humidification and ramp. pressure should be set at 12 cm/H2o,alternatively auto CPAP 8-14 cm/H2O can be used. (sleep study note cameron Pulmonary hypertension (Chronic 07/14/17) 07/14/17 mild pulm hypertension, mild pulm capillary wedge pressure, elevated left ventricular end diastolic pressure, one vessel CAD-LAD w/ stent oinsertion Restless leg syndrome (Chronic 10/31/14) Per Sleep Lab Dr. Bui Sensorineural hearing loss, bilateral (Chronic 11/24/17) Tubular adenoma of colon (Inactive 10/18/14) Type 2 diabetes mellitus with retinopathy, with long-term current use of insulin (Chronic 10/27/17) Surgical History Cholecystectomy (Resolved) Colonoscopy - IV Sedation (Resolved 10/14/14) tubular adenoma Dr. Blancas S/P coronary artery stent placement (Inactive) s/p MADONNA to LAD mid 2; Dr. 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: No Do you feel safe at home: Yes Do you feel safe in your relationship?: Yes Meds Home Medications and Allergies Home Medications Medication Instructions Recorded Confirmed Type lancets #350 ea 08/24/17 12/26/19 Rx pen needle, diabetic #300 03/02/18 12/26/19 History metformin 1,000 mg tablet 1,000 mg PO BID #180 tab-cap 12/08/18 12/26/19 Rx nitroglycerin 0.4 mg sublingual 0.4 mg SL Q5M PRN #30 tab-cap MDD 01/08/1904/09 Rx tablet 3 doses aspirin 81 mg chewable tablet 81 mg PO DAILY #90 tab-cap 01/18/19 12/26/19 Rx clopidogrel [Plavix] 75 mg PO DAILY #30 tab 02/15/19 12/26/19 Rx flash glucose sensor #1 each 05/03/19 12/26/19 Rx blood sugar diagnostic #400 each 06/22/19 12/26/19 Rx pantoprazole 40 mg tablet,delayed 40 mg PO QAM #90 tab-cap 06/28/19 12/26/19 Rx release liraglutide 0.6 mg/0.1 mL (18 mg/3 1.8 mg SC DAILY #9 ml 07/19/19 12/26/19 Rx mL) subcutaneous pen injector magnesium oxide 400 mg (241.3 mg 400 mg PO DAILY #90 tab-cap 07/19/19 12/26/19 Rx magnesium) tablet empagliflozin 25 mg tablet 25 mg PO DAILY #90 tab-cap 09/10/19 12/26/19 Rx insulin aspart U-100 100 unit/mL See Rx Instructions SC AC #15 ml 10/04/19 12/26/19 Rx (3 mL) subcutaneous pen insulin regular hum U-500 conc See Rx Instructions SC BID #6 ml 10/04/19 12/26/19 Rx lisinopril 5 mg tablet 5 mg PO DAILY #90 tab-cap 10/04/19 12/26/19 Rx metoprolol succinate 100 mg 150 mg PO DAILY #135 tab-cap 10/04/19 12/26/19 Rx tablet,extended release 24 hr ammonium lactate 12 % topical cream 1 applic TP QD-BID PRN #140 gm 10/19/19 12/26/19 Rx triamcinolone acetonide 0.5 % 1 applic TP .BID-QID #15 gm 10/19/19 12/26/19 Rx topical cream rosuvastatin 40 mg tablet 40 mg PO HS #90 tab-cap 11/22/19 12/26/19 Rx sertraline 100 mg tablet 150 mg PO DAILY #145 tab-cap 11/22/19 12/26/19 Rx Allergies Allergy/AdvReac Type Severity Reaction Status Date / Time bee venom protein (honey bee) Allergy Severe Swelling/Ed Verified 12/26/19 15:11 capri Penicillins Allergy Unknown Rash Verified 12/26/19 15:11 shellfish derived Allergy Unknown Rash; Verified 12/26/19 15:11 swelling Exam Narrative Exam Narrative: 132/86, 90, 18, 36.6. HEENT unremarkable; neck supple w/o JVD; lungs clear; heart RRR w/o MRG; no chest tenderness but resisted LUE adductionj produces left parasternal pain (though not identical to his presenting pain); abdomen soft and NT; extremities w/o edema pulses 2+/= Results Labs Result diagrams: 12/26/19 15:15 12/26/19 15:15 Labs: Laboratory Results - last 24 hr 12/26/19 12/26/19 12/26/19 15:15 15:15 15:15 WBC 6.45 RBC 4.72 Hgb 14.4 Hct 41.3 MCV 87.5 MCH 30.5 MCHC 34.9 RDW 12.8 Plt Count 245 MPV 9.0 Immature Gran % 0.2 Neutrophils % 51.5 Lymphocytes % 32.6 Monocytes % 10.4 Eosinophils % 4.8 Basophils % 0.5 Absolute Neutrophils 3.33 Absolute Lymphocytes 2.10 Absolute Monocytes 0.67 Absolute Eosinophils 0.31 Absolute Basophils 0.03 PT 11.1 H INR 1.1 APTT 29.6 Sodium 139 Potassium 4.2 Chloride 105 Carbon Dioxide 27.0 Anion Gap 7.0 BUN 12 Creatinine 0.85 Estimated GFR/1.73 m2 >= 60.00 Glucose 206 H Calcium 9.1 Total Bilirubin 0.4 AST 15 ALT 30 Alkaline Phosphatase 130 H Troponin I < 0.05 Total Protein 6.7 Albumin 3.4 Lipase 108 12/26/19 18:03 WBC RBC Hgb Hct MCV MCH MCHC RDW Plt Count MPV Immature Gran % Neutrophils % Lymphocytes % Monocytes % Eosinophils % Basophils % Absolute Neutrophils Absolute Lymphocytes Absolute Monocytes Absolute Eosinophils Absolute Basophils PT INR APTT Sodium Potassium Chloride Carbon Dioxide Anion Gap BUN Creatinine Estimated GFR/1.73 m2 Glucose Calcium Total Bilirubin AST ALT Alkaline Phosphatase Troponin I < 0.05 Total Protein Albumin Lipase Last Vital Signs Temp 36.6 C 12/26/19 15:08 Pulse 90 12/26/19 19:10 Resp 18 12/26/19 19:10 BP 132/86 12/26/19 19:10 Pulse Ox 97 12/26/19 19:10
== END 2019-12-26 20:55 | disposition short-term general hospital (02) ==
PROVIDERS: Emergency Provider Student in an Organized Health Care Education/Training Program; PCP Nurse Practitioner Family
DX: R55 Syncope and collapse (principal); R07.9 Chest pain, unspecified; I50.22 Chronic systolic (congestive) heart failure; E11.9 Type 2 diabetes mellitus without complications; Z79.4 Long term (current) use of insulin; I25.10 Atherosclerotic heart disease of native coronary artery without angina pectoris; Z95.5 Presence of coronary angioplasty implant and graft; I10 Essential (primary) hypertension
CPT/HCPCS: 36415; 80053; 83690; 93005; 99222; 99283; 99285; 71045; 84484; 85025; 85610; 85730; 93010

== ENCOUNTER 2020-01-19 10:53 | Emergency (ER) | payer BC, SELFPAY ==
[2020-01-19] VITALS (33 sets, daily range): BP systolic 108–141; BP diastolic 76–91; PULSE 73–103; RESP 14–28; TEMP 36.6–36.9; O2SAT 95–98
[2020-01-19 11:17] LABS: Abs Immature Grans 0.02 k/cumm (0.0-0.09); Absolute Basophil Count 0.05 k/cumm (0.0-0.2); Absolute Eosinophil Count 0.17 k/cumm (0.0-0.7); Absolute Lymphocyte Count 2.24 k/cumm (1.2-3.4); Absolute Monocyte Count 0.57 k/cumm (0.11-0.7); Absolute Neutrophil Count 3.54 k/cumm (1.2-6.7); Basophils % 0.8; Eosinophils % 2.6; HCT 42.1 % (40.0-50.0); HGB 15.2 g/dL (13.5-17.5); Immature Grans % 0.3 %; Mean Corp. HGB Concentration 36.1 g/dL (32.0-36.0); Mean Corpuscular Hemoglobin 30.4 pg (27.0-33.0); Mean Corpuscular Volume 84.2 fL (80-95); Mean Platelet Volume 9.8 fL (8.0-11.0); Monocytes % 8.6; Neutrophils % 53.7; Platelet Count 250 x1000/uL (130-400); RBC Distribution Width 12.2 % (11.8-14.1); White Blood Cell Count 6.59 k/cumm (4.4-10.8)
--- NOTE | 2020-01-19 11:20 | NUR.NOTE ---
Nursing Note: Calex administered 324mg PO Aspirin to PT en route. PA made aware.
[2020-01-19 11:30] LABS: INR 1.1 (0.9-1.1); PTT Activated 29.1 sec (21.0-31.4); Prothrombin Time 11.1 sec (9.3-11.0)
[2020-01-19 11:33] LABS: ALT 19 U/L (16-63); AST 11 U/L (15-37); Albumin 3.7 g/dL (3.4-5.0); Alkaline Phosphatase 191 U/L (46-116); BUN 23 mg/dL (7-18); Bilirubin, Total 0.5 mg/dL (0.2-1.0); CREATININE 1.13 mg/dL (0.70-1.30); Calcium 8.3 mg/dL (8.5-10.1); Chloride 96 mmol/L (98-107); Glucose 470 mg/dL (74-106); Magnesium 1.7 mg/dL (1.8-2.4); Potassium 3.8 mmol/L (3.5-5.1); Sodium 132 mmol/L (136-145); Total Protein 7.2 g/dL (6.4-8.2); Troponin I < 0.05 ng/Ml (<0.06)
[2020-01-19 11:39] LABS: NT-proBNP 301 pg/mL (<300)
--- NOTE | 2020-01-19 12:45 | DI.RAD_ITS ---
EXAM: XR CHEST 2V PA LATERAL INDICATION: cough/CP. COMPARISON: XR PORTABLE CHEST AP from 12/26/2019 TECHNIQUE: 2D digital imaging was performed. FINDINGS: The heart size is normal. The lungs are not well inflated. There are minimal linear areas of scarri ng or atelectasis. No infiltrate, effusion or pulmonary edema is seen. IMPRESSION: No acute abnormality. DATA REPOSITORY: RADIATION DOSE DELIVERED:
--- NOTE | 2020-01-19 13:33 | DI.VRAD_ITS ---
PROCEDURE INFORMATION: Exam: XR Chest, 2 Views Exam date and time: 01/19/2020 12:46 PM Age: 54 years old Clinical indication: Cough TECHNIQUE: Imaging protocol: XR of the chest Views: 2 views. COMPARISON: CR XR PORTABLE CHEST AP 12/26/2019 3:26 PM FINDINGS: Lungs: Unremarkable. No consolidation. Pleural space: Unremarkable. No pleural effusion. No pneumothorax. Heart/Mediastinum: Unremarkable. No cardiomegaly. Bones/joints: Unremarkable. IMPRESSION: No acute findings. Dictated and Authenticated by: Tesfaye Leija MD. Ordering:SELINA Ivory MD
[2020-01-19] MEDS: Normal Saline 1,000 ML 1000 ML IV (13:54)
[2020-01-19 14:19] LABS: D-Dimer 448 ng/mlFEU (<500)
[2020-01-19 14:29] LABS: Troponin I < 0.05 ng/Ml (<0.06)
--- NOTE | 2020-01-19 14:57 | W.ED.GENAD ---
Discharge Plan Disposition Patient Disposition: HOME Condition: Stable Discharge Details Chief Complaint: RespSymp Clinical Impression: Cough Primary Care Provider: Camilla Sherman ED Provider: Cachorro Garza Home Meds and New Rx's Prescriptions: Continued Victoza 3-Alfonso 0.6 mg/0.1 mL (18 mg/3 mL) pen injector 1.8 mg SC DAILY Qty: 9 RF: 3 magnesium oxide 400 mg (241.3 mg magnesium) tablet 400 mg PO DAILY Qty: 90 RF: 0 sertraline [Zoloft] 100 mg tablet 150 mg PO DAILY Qty: 145 RF: 3 rosuvastatin [Crestor] 40 mg tablet 40 mg PO HS Qty: 90 RF: 3 triamcinolone acetonide 0.5 % cream 1 applic TP .BID-QID Qty: 15 RF: 0 ammonium lactate 12 % cream 1 applic TP QD-BID PRN (Reason: dry skin) Qty: 140 RF: 3 (DME) lancets 1 EACH misc 1 ea Miscellaneous QID Qty: 350 RF: 3 (DME) pen needle, diabetic 1 EACH needle Miscellaneous TID Qty: 300 RF: 3 metformin 1,000 mg tablet 1,000 mg PO BID Qty: 180 RF: 3 nitroglycerin 0.4 mg tablet, sublingual 0.4 mg SL Q5M MDD 3 doses PRN (Reason: chest pain) Qty: 30 RF: 0 aspirin 81 mg tablet,chewable 81 mg PO DAILY Qty: 90 RF: 3 (DME) FreeStyle Flako 14 Day Sensor kit See Dose Instructions .ROUTE .MEDSUPPLY Qty: 1 RF: 0 (DME) Blood Glucose Test Strip See Rx Instructions .ROUTE .MEDSUPPLY Qty: 400 RF: 3 pantoprazole 40 mg tablet,delayed release (DR/EC) 40 mg PO QAM Qty: 90 RF: 3 Jardiance 25 mg tablet 25 mg PO DAILY Qty: 90 RF: 3 insulin regular hum U-500 conc 500 unit/mL (3 mL) insulin pen See Rx Instructions SC BID Qty: 6 RF: 3 lisinopril 5 mg tablet 5 mg PO DAILY Qty: 90 RF: 3 metoprolol succinate 100 mg tablet extended release 24 hr 150 mg PO DAILY Qty: 135 RF: 3 clopidogrel [Plavix] 75 mg Tablet 75 mg PO DAILY Qty: 30 RF: 0 Discharge Instructions Instructions: Acute Cough (ED) Additional Instructions: Work-up in the ER reveals no pneumonia, pulmonary embolism, and the cardiac work-up was negative. Likely a viral cough. Please take your medications as directed, do not skip taking your diabetic medications. [id number] medications for symptomatic control. Please watch for new or worsening symptoms and return to the ER for any concerns. I do recommend reaching out your primary care provider on Tuesday for prompt outpatient reevaluation Medical Decision Making 54-year-old gentleman with a significant past medical history, known to be noncompliant, presents to the ER today reporting to me a 2-week history of dry cough worsening in nature. Exacerbated by exertion. Only has some mild right-sided chest wall discomfort with coughing otherwise is pain-free. Patient tells me he is concerned about pneumonia. Patient is afebrile, satting 99% on room air, lungs are clear to auscultation. He did not take his morning diabetic medications. Given his multiple comorbidities and noncompliance will initiate cardiac work-up, obtain chest x-ray, flu swab, give IV fluid and reassess. Differential includes but not exclusive to flu, pneumonia, viral syndrome, bronchitis, ACS, PE, hyperglycemia, noncompliance, CHF, DKA Pulse in triage was 103 however upon my evaluation he was 94. White count of 6.59, sodium 132, chloride 96, anion gap 12, BUN 23, glucose 470, calcium 8.3, magnesium 1.7, BNP 301. D-dimer 448, initial troponin less than 0.05. Chest x-ray negative. Flu negative Upon reevaluation patient is resting comfortably, he has been in the ER for several hours and I have only heard him cough a few times. He appears well, nontoxic and was able to ambulate steadily. Patient is agreeable to stay in the ER for a repeat troponin, 3-hour rule out. His glucose is now in the mid 350s with IV fluid. Patient tells me he plans on taking his daily medications as soon as he gets home. He does not appear to be in DKA, I am hesitant to give additional medications to drive his glucose down further and then have him take additional medications at home and become hypoglycemic. Given his noncompliance, it is reasonable to believe that his glucose does run high on a fairly regular basis. Repeat troponin less than 0.05. Findings and work-up discussed with patient and family. They have no additional questions or concerns and are comfortable discharge. Discussed the importance of being compliant with all of his medications. We discussed the importance of outpatient follow-up. Medical Records Medical records reviewed: Yes I reviewed the patient's medical records. Imaging Data Radiologic Study: Attestation: I personally reviewed and interpreted this imaging study as follows: Imaging: X-Ray My impression: Chest x-ray negative, as read by me. Reviewed impression by virtual radiology as no acute findings Lab Data Lab results reviewed: Yes I reviewed the patient's lab results. Lab results narrative: 01/19/20 11:15 Nasopharynx Influenza Types A,B Antigen - Final Laboratory Tests Range/Units 01/19/20 01/19/20 01/19/20 11:10 11:11 11:11 WBC (4.4-10.8) k/cumm RBC (4.50-6.00) m/cumm Hgb (13.5-17.5) g/dL Hct (40.0-50.0) % MCV (80-95) fL MCH (27.0-33.0) pg MCHC (32.0-36.0) g/dL RDW (11.8-14.1) % Plt Count (130-400) x1000/uL MPV (8.0-11.0) fL Immature Gran % % Neutrophils % Lymphocytes % Monocytes % Eosinophils % Basophils % Absolute Neutrophils (1.2-6.7) k/cumm Absolute Lymphocytes (1.2-3.4) k/cumm Absolute Monocytes (0.11-0.7) k/cumm Absolute Eosinophils (0.0-0.7) k/cumm Absolute Basophils (0.0-0.2) k/cumm PT (9.3-11.0) sec 11.1 H INR (0.9-1.1) 1.1 APTT (21.0-31.4) sec 29.1 D-Dimer (<500) ng/mlFEU 448 Sodium (136-145) mmol/L 132 L Potassium (3.5-5.1) mmol/L 3.8 Chloride (98-107) mmol/L 96 L Carbon Dioxide (21.0-32.0) mmol/L 24.0 Anion Gap (3-11) mmol/L 12.0 H BUN (7-18) mg/dL 23 H Creatinine (0.70-1.30) mg/dL 1.13 Estimated GFR/1.73 m2 (mL/min/1.73m2) >= 60.00 Glucose (74-106) mg/dL 470 H Calcium (8.5-10.1) mg/dL 8.3 L Magnesium (1.8-2.4) mg/dL 1.7 L Total Bilirubin (0.2-1.0) mg/dL 0.5 AST (15-37) U/L 11 L ALT (16-63) U/L 19 Alkaline Phosphatase (46-116) U/L 191 H Troponin I (<0.06) ng/Ml < 0.05 NT-Pro-B Natriuret Pep (<300) pg/mL Total Protein (6.4-8.2) g/dL 7.2 Albumin (3.4-5.0) g/dL 3.7 Range/Units 01/19/20 01/19/20 01/19/20 11:11 11:11 14:09 WBC (4.4-10.8) k/cumm 6.59 RBC (4.50-6.00) m/cumm 5.00 Hgb (13.5-17.5) g/dL 15.2 Hct (40.0-50.0) % 42.1 MCV (80-95) fL 84.2 MCH (27.0-33.0) pg 30.4 MCHC (32.0-36.0) g/dL 36.1 H RDW (11.8-14.1) % 12.2 Plt Count (130-400) x1000/uL 250 MPV (8.0-11.0) fL 9.8 Immature Gran % % 0.3 Neutrophils % 53.7 Lymphocytes % 34.0 Monocytes % 8.6 Eosinophils % 2.6 Basophils % 0.8 Absolute Neutrophils (1.2-6.7) k/cumm 3.54 Absolute Lymphocytes (1.2-3.4) k/cumm 2.24 Absolute Monocytes (0.11-0.7) k/cumm 0.57 Absolute Eosinophils (0.0-0.7) k/cumm 0.17 Absolute Basophils (0.0-0.2) k/cumm 0.05 PT (9.3-11.0) sec INR (0.9-1.1) APTT (21.0-31.4) sec D-Dimer (<500) ng/mlFEU Sodium (136-145) mmol/L Potassium (3.5-5.1) mmol/L Chloride (98-107) mmol/L Carbon Dioxide (21.0-32.0) mmol/L Anion Gap (3-11) mmol/L BUN (7-18) mg/dL Creatinine (0.70-1.30) mg/dL Estimated GFR/1.73 m2 (mL/min/1.73m2) Glucose (74-106) mg/dL Calcium (8.5-10.1) mg/dL Magnesium (1.8-2.4) mg/dL Total Bilirubin (0.2-1.0) mg/dL AST (15-37) U/L ALT (16-63) U/L Alkaline Phosphatase (46-116) U/L Troponin I (<0.06) ng/Ml < 0.05 NT-Pro-B Natriuret Pep (<300) pg/mL 301 H Total Protein (6.4-8.2) g/dL Albumin (3.4-5.0) g/dL ECG Data Attestation: I personally reviewed and interpreted this ECG (s) as follows: Interpretation: EKG performed at 11:00. Sinus rhythm, ventricular rate of 100. There appears to be poor R wave progression. No acute ST elevation or depression segments. HPI General Mode of arrival: EMS. Date/Time Provider Initiated Documentation: 01/19/20 11:06. Limitations to Documentation: no limitations. Information obtained by: patient and family. HPI Narrative: This is a 54-year-old gentleman with a significant past medical history of STEMI, depression, hypomagnesemia, GERD, obesity, type 2 diabetes, pulmonary hypertension, sleep apnea, noncompliance, CHF, ASCVD, presented to the ER via EMS for what he describes as cough and shortness of breath. He reports a dry cough for approximately 2 weeks, getting worse. He reports that he walked to the store today, felt increased shortness of breath after experiencing a coughing episode. He reports that he does have occasional chest discomfort with severe coughing but has had no other chest pain. 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 He is a rather vague and poor historian. He does report that he did not take his morning diabetic medications. Patient denies being a smoker or history of smoking. Related Data Home Medications Medication Instructions Recorded Confirmed lancets #350 ea 08/24/17 01/19/20 pen needle, diabetic #300 03/02/18 01/19/20 metformin 1,000 mg tablet 1,000 mg PO BID #180 tab-cap 12/08/18 01/19/20 nitroglycerin 0.4 mg sublingual 0.4 mg SL Q5M PRN #30 tab-cap MDD 01/08/19 01/19/20 tablet 3 doses aspirin 81 mg chewable tablet 81 mg PO DAILY #90 tab-cap 01/18/19 12/26/19 clopidogrel [Plavix] 75 mg PO DAILY #30 tab 02/15/19 01/19/20 flash glucose sensor #1 each 05/03/19 01/19/20 blood sugar diagnostic #400 each 06/22/19 01/19/20 pantoprazole 40 mg tablet,delayed 40 mg PO QAM #90 tab-cap 06/28/19 01/19/20 release liraglutide 0.6 mg/0.1 mL (18 mg/3 1.8 mg SC DAILY #9 ml 07/19/19 12/26/19 mL) subcutaneous pen injector magnesium oxide 400 mg (241.3 mg 400 mg PO DAILY #90 tab-cap 07/19/19 01/19/20 magnesium) tablet empagliflozin 25 mg tablet 25 mg PO DAILY #90 tab-cap 09/10/19 01/19/20 insulin regular hum U-500 conc See Rx Instructions SC BID #6 ml 10/04/19 01/19/20 lisinopril 5 mg tablet 5 mg PO DAILY #90 tab-cap 10/04/19 01/19/20 metoprolol succinate 100 mg 150 mg PO DAILY #135 tab-cap 10/04/19 01/19/20 tablet,extended release 24 hr ammonium lactate 12 % topical cream 1 applic TP QD-BID PRN #140 gm 10/19/19 01/19/20 triamcinolone acetonide 0.5 % 1 applic TP .BID-QID #15 gm 10/19/19 01/19/20 topical cream rosuvastatin 40 mg tablet 40 mg PO HS #90 tab-cap 11/22/19 01/19/20 sertraline 100 mg tablet 150 mg PO DAILY #145 tab-cap 11/22/19 01/19/20 Previous Rx's Medication Instructions Recorded lancets #350 ea 08/24/17 metformin 1,000 mg tablet 1,000 mg PO BID #180 tab-cap 12/08/18 nitroglycerin 0.4 mg sublingual 0.4 mg SL Q5M PRN #30 tab-cap MDD 01/08/19 tablet 3 doses aspirin 81 mg chewable tablet 81 mg PO DAILY #90 tab-cap 01/18/19 clopidogrel [Plavix] 75 mg PO DAILY #30 tab 02/15/19 flash glucose sensor #1 each 05/03/19 blood sugar diagnostic #400 each 06/22/19 pantoprazole 40 mg tablet,delayed 40 mg PO QAM #90 tab-cap 06/28/19 release liraglutide 0.6 mg/0.1 mL (18 mg/3 1.8 mg SC DAILY #9 ml 07/19/19 mL) subcutaneous pen injector magnesium oxide 400 mg (241.3 mg 400 mg PO DAILY #90 tab-cap 07/19/19 magnesium) tablet empagliflozin 25 mg tablet 25 mg PO DAILY #90 tab-cap 09/10/19 insulin regular hum U-500 conc See Rx Instructions SC BID #6 ml 10/04/19 lisinopril 5 mg tablet 5 mg PO DAILY #90 tab-cap 10/04/19 metoprolol succinate 100 mg 150 mg PO DAILY #135 tab-cap 10/04/19 tablet,extended release 24 hr ammonium lactate 12 % topical cream 1 applic TP QD-BID PRN #140 gm 10/19/19 triamcinolone acetonide 0.5 % 1 applic TP .BID-QID #15 gm 10/19/19 topical cream rosuvastatin 40 mg tablet 40 mg PO HS #90 tab-cap 11/22/19 sertraline 100 mg tablet 150 mg PO DAILY #145 tab-cap 11/22/19 Allergies Allergy/AdvReac Type Severity Reaction Status Date / Time bee venom protein (honey bee) Allergy Severe Swelling/Ed Verified 01/19/20 10:57 capri Penicillins Allergy Unknown Rash Verified 01/19/20 10:57 shellfish derived Allergy Unknown Rash; Verified 01/19/20 10:57 swelling General Stated Complaint: RespSymp VAN: 3 Review of Systems Constitutional Constitutional: Denies chills, Denies fatigue, Denies fever(s) and Denies headache(s) ENT Ears, Nose, Mouth, and Throat: Denies headache(s), Denies nasal discharge and Denies sore throat Cardiovascular Cardiovascular: Reports chest pain (With coughing), Denies chest pain at rest, Denies chest pain with activity and Reports dyspnea Respiratory Respiratory: Reports cough, Reports pain with cough and Reports dyspnea Gastrointestinal Gastrointestinal: Denies abdominal pain, Denies nausea and Denies vomiting Musculoskeletal Musculoskeletal: Denies myalgias Integumentary/Breasts Skin/Breast: Denies rash Neurologic Neurologic: Denies headache(s) Endocrine Endocrine: Denies fatigue [facility] Medical History Adult BMI > 30 (Chronic) ASCVD (arteriosclerotic cardiovascular disease) (Chronic 07/28/17) NSTEMI with HFrEF 07/11/2017 s/p MADONNA to mLAD on 07/14/2017 at [facility] [place] Callus of foot (Chronic) I advised to purchase pumice stone and gentle smooth out the surface of the callus. Chronic HFrEF (heart failure with reduced ejection fraction) (Chronic 07/20/18) LVEF 30-35% on index presentation improved to 50% on f/u echo Conductive hearing loss (Chronic 07/06/13) Depression (Chronic 11/25/11) Elevated ferritin level (Chronic 10/20/17) Erectile dysfunction (Chronic 07/06/13) Essential hypertension (Chronic 07/06/13) Gastroesophageal reflux disease (Chronic) Hyperlipidemia (Chronic 07/06/13) 11/2017 labwork: 10-year ASCVD risk = ~6.1% --> continue current high intensity statin therapy (h/o ASCVD) Hyperuricemia (Inactive) Hypomagnesemia (Acute) Microalbuminuria (Chronic) Noncompliance with medication regimen (Chronic 07/06/13) Nonproliferative diabetic retinopathy (Chronic) NSTEMI (non-ST elevated myocardial infarction) (Inactive 07/11/17) 06/2017: S/p MADONNA to mLAD at [facility] [place] Will require DAPT for a minimum of 1 year Obstructive sleep apnea, adult (Chronic 10/31/14) Severe, C-pap, Dr. Almeida continue on CPAP therapy with mask of choice,heated humidification and ramp. pressure should be set at 12 cm/H2o,alternatively auto CPAP 8-14 cm/H2O can be used. (sleep study note cameron Pulmonary hypertension (Chronic 07/14/17) 07/14/17 mild pulm hypertension, mild pulm capillary wedge pressure, elevated left ventricular end diastolic pressure, one vessel CAD-LAD w/ stent oinsertion Restless leg syndrome (Chronic 10/31/14) Per Sleep Lab Dr. Bui Sensorineural hearing loss, bilateral (Chronic 11/24/17) Tubular adenoma of colon (Inactive 10/18/14) Type 2 diabetes mellitus with retinopathy, with long-term current use of insulin (Chronic 10/27/17) Surgical History Cholecystectomy (Resolved) Colonoscopy - IV Sedation (Resolved 10/14/14) tubular adenoma Dr. Blancas S/P coronary artery stent placement (Inactive) s/p MADONNA to LAD mid 2; Dr. Fercho Eddy, 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 light truck driver: No Do you feel safe at home: Yes Do you feel safe in your relationship?: Yes Exam Const General: cooperative, healthy appearing, comfortable and no acute distress Orientation: alert and awake HENKY Head: normal to inspection, normocephalic and atraumatic Mouth: oral mucosae normal and moist mucous membranes Throat: posterior oropharynx normal Eyes Conjunctivae: conjunctivae normal Neck Neck: normal visual inspection, full ROM, no lymphadenopathy, no meningeal signs, trachea midline and supple Resp Effort & Inspection: normal respiratory effort, able to speak in complete sentences and cough Quality of cough: dry (Mild) Auscultation: clear to auscultation bilaterally Cardio Rate: regular rate Rhythm: regular rhythm GI Palpation: soft, not firm, not rigid and nontender Auscultation: normal bowel sounds Back/Spine/Pelvis Back: No back tenderness Skin General skin exam: no rashes or lesions noted Neuro General: alert, awake, moves all extremities and no focal motor deficits Gait: normal gait Sensory Exam: no sensory deficits noted Extrem General: normal to inspection Psych Appearance: grossly normal Mental Status: mental status grossly normal Course Vital Signs Vital signs: Vital Signs Temperature 36.6 C 01/19/20 10:54 Pulse 103 H 01/19/20 10:54 Respiratory Rate 18 01/19/20 10:54 Blood Pressure 134/90 01/19/20 10:54 Pulse Oximetry 97 01/19/20 10:54 Temperature 36.9 C 01/19/20 14:47 Temperature Source Temporal Artery Scan 01/19/20 10:54 Pulse 86 01/19/20 14:46 Pulse 90 01/19/20 13:40 Respiratory Rate 24 01/19/20 13:40 Respiratory Effort Non-Labored 01/19/20 11:04 Respiratory Depth Normal 01/19/20 11:04 Blood Pressure 129/86 01/19/20 14:46 Blood Pressure Mean 96 01/19/20 14:46 Blood Pressure Position Sitting 01/19/20 10:54 Pulse Oximetry 97 01/19/20 14:46 Oxygen Delivery Method Room Air 01/19/20 10:54 Oxygen Flow Rate 0 01/19/20 10:54 Pain Level 0 01/19/20 14:47 Lab/Test Results Lab/Test Results: 01/19/20 11:15 Nasopharynx Influenza Types A,B Antigen - Final Laboratory Tests Range/Units 01/19/20 01/19/20 01/19/20 11:10 11:11 11:11 WBC (4.4-10.8) k/cumm RBC (4.50-6.00) m/cumm Hgb (13.5-17.5) g/dL Hct (40.0-50.0) % MCV (80-95) fL MCH (27.0-33.0) pg MCHC (32.0-36.0) g/dL RDW (11.8-14.1) % Plt Count (130-400) x1000/uL MPV (8.0-11.0) fL Immature Gran % % Neutrophils % Lymphocytes % Monocytes % Eosinophils % Basophils % Absolute Neutrophils (1.2-6.7) k/cumm Absolute Lymphocytes (1.2-3.4) k/cumm Absolute Monocytes (0.11-0.7) k/cumm Absolute Eosinophils (0.0-0.7) k/cumm Absolute Basophils (0.0-0.2) k/cumm PT (9.3-11.0) sec 11.1 H INR (0.9-1.1) 1.1 APTT (21.0-31.4) sec 29.1 D-Dimer (<500) ng/mlFEU 448 Sodium (136-145) mmol/L 132 L Potassium (3.5-5.1) mmol/L 3.8 Chloride (98-107) mmol/L 96 L Carbon Dioxide (21.0-32.0) mmol/L 24.0 Anion Gap (3-11) mmol/L 12.0 H BUN (7-18) mg/dL 23 H Creatinine (0.70-1.30) mg/dL 1.13 Estimated GFR/1.73 m2 (mL/min/1.73m2) >= 60.00 Glucose (74-106) mg/dL 470 H Calcium (8.5-10.1) mg/dL 8.3 L Magnesium (1.8-2.4) mg/dL 1.7 L Total Bilirubin (0.2-1.0) mg/dL 0.5 AST (15-37) U/L 11 L ALT (16-63) U/L 19 Alkaline Phosphatase (46-116) U/L 191 H Troponin I (<0.06) ng/Ml < 0.05 NT-Pro-B Natriuret Pep (<300) pg/mL Total Protein (6.4-8.2) g/dL 7.2 Albumin (3.4-5.0) g/dL 3.7 Range/Units 01/19/20 01/19/20 01/19/20 11:11 11:11 14:09 WBC (4.4-10.8) k/cumm 6.59 RBC (4.50-6.00) m/cumm 5.00 Hgb (13.5-17.5) g/dL 15.2 Hct (40.0-50.0) % 42.1 MCV (80-95) fL 84.2 MCH (27.0-33.0) pg 30.4 MCHC (32.0-36.0) g/dL 36.1 H RDW (11.8-14.1) % 12.2 Plt Count (130-400) x1000/uL 250 MPV (8.0-11.0) fL 9.8 Immature Gran % % 0.3 Neutrophils % 53.7 Lymphocytes % 34.0 Monocytes % 8.6 Eosinophils % 2.6 Basophils % 0.8 Absolute Neutrophils (1.2-6.7) k/cumm 3.54 Absolute Lymphocytes (1.2-3.4) k/cumm 2.24 Absolute Monocytes (0.11-0.7) k/cumm 0.57 Absolute Eosinophils (0.0-0.7) k/cumm 0.17 Absolute Basophils (0.0-0.2) k/cumm 0.05 PT (9.3-11.0) sec INR (0.9-1.1) APTT (21.0-31.4) sec D-Dimer (<500) ng/mlFEU Sodium (136-145) mmol/L Potassium (3.5-5.1) mmol/L Chloride (98-107) mmol/L Carbon Dioxide (21.0-32.0) mmol/L Anion Gap (3-11) mmol/L BUN (7-18) mg/dL Creatinine (0.70-1.30) mg/dL Estimated GFR/1.73 m2 (mL/min/1.73m2) Glucose (74-106) mg/dL Calcium (8.5-10.1) mg/dL Magnesium (1.8-2.4) mg/dL Total Bilirubin (0.2-1.0) mg/dL AST (15-37) U/L ALT (16-63) U/L Alkaline Phosphatase (46-116) U/L Troponin I (<0.06) ng/Ml < 0.05 NT-Pro-B Natriuret Pep (<300) pg/mL 301 H Total Protein (6.4-8.2) g/dL Albumin (3.4-5.0) g/dL
== END 2020-01-19 15:22 | disposition home or self-care (01) ==
PROVIDERS: Emergency Provider Physician Assistant; PCP Nurse Practitioner Family
DX: R05 Cough (principal); I10 Essential (primary) hypertension; E11.9 Type 2 diabetes mellitus without complications; Z79.4 Long term (current) use of insulin
CPT/HCPCS: 36416; 80053; 82962; 87449; 96360; 99285; 71046; 83735; 83880; 84484; 85025; 85379; 85610; 85730; 99284

== ENCOUNTER 2020-04-03 13:10 | Outpatient (CLI) | payer MEDICAID, SELFPAY ==
--- NOTE | 2020-04-03 14:33 | DI.RAD_ITS ---
EXAM: XR FOOT RT COMPLETE CLINICAL HISTORY: infected DM ulcer, r/o osteomyelitis, E11.621, L97.519 TECHNIQUE: COMPARISON: CR,XR XR FOOT RT COMPLETE from 09/08/2019 FINDINGS: Three views were obtained. There are mild degenerative changes of the joints of midfoot and interpha langeal joints. No gross erosive or destructive process seen. There is reportedly a clinical suspic ion of osteomyelitis, you may wish to consider additional evaluation with MRI. IMPRESSION:
[2020-04-03 15:24] LABS: Abs Immature Grans 0.03 k/cumm (0.0-0.09); Absolute Basophil Count 0.07 k/cumm (0.0-0.2); Absolute Eosinophil Count 0.51 k/cumm (0.0-0.7); Absolute Monocyte Count 0.68 k/cumm (0.11-0.7); Absolute Neutrophil Count 5.99 k/cumm (1.2-6.7); Basophils % 0.7; Eosinophils % 5.4; HCT 43.6 % (40.0-50.0); HGB 15.8 g/dL (13.5-17.5); Immature Grans % 0.3 %; Lymphocytes % 23.2; Mean Corp. HGB Concentration 36.2 g/dL (32.0-36.0); Mean Corpuscular Hemoglobin 30.9 pg (27.0-33.0); Mean Corpuscular Volume 85.2 fL (80-95); Monocytes % 7.2; Neutrophils % 63.2; Platelet Count 281 x1000/uL (130-400); RBC 5.12 m/cumm (4.50-6.00); RBC Distribution Width 12.7 % (11.8-14.1); White Blood Cell Count 9.48 k/cumm (4.4-10.8)
[2020-04-03 16:18] LABS: ESR 8 mm/hr (1-20)
[2020-04-03 17:41] LABS: C-Reactive Protein 0.07 mg/dL (0.0-0.3)
== END 2020-04-03 13:30 ==
PROVIDERS: PCP Nurse Practitioner Family; Visit Provider Nurse Practitioner Family
DX: E11.621 Type 2 diabetes mellitus with foot ulcer (principal); L97.518 Non-pressure chronic ulcer of other part of right foot with other specified severity; M19.071 Primary osteoarthritis, right ankle and foot
CPT/HCPCS: 85652; 87040; 73630; 85025; 86140

== ENCOUNTER 2020-07-21 12:17 | Outpatient (REF) | payer MEDICAID, SELFPAY ==
[2020-07-21 19:55] LABS: COMMENT (LAB VIEW ONLY) 104.41 mg/dL; Microalb ug/mg Crea 40.1 ug/mg Cr
== END 2020-07-21 12:37 ==
LOC: LBN 12:17
PROVIDERS: PCP Nurse Practitioner Family; Visit Provider Nurse Practitioner Family
DX: E11.65 Type 2 diabetes mellitus with hyperglycemia (principal); Z79.4 Long term (current) use of insulin
CPT/HCPCS: 82043; 82570

== ENCOUNTER 2020-07-22 03:14 | Outpatient (CLI) | payer MEDICAID, SELFPAY ==
[2020-07-22 10:40] LABS: Absolute Basophil Count 0.04 10^3/uL (0.0-0.2); Absolute Lymphocyte Count 1.71 10^3/uL (1.2-3.4); Absolute Monocyte Count 1.18 10^3/uL (0.1-0.8); Absolute Neutrophil Count 10.46 10^3/uL (1.2-6.7); Basophils % 0.3; HCT 39.9 % (40.0-50.0); HGB 13.7 g/dL (13.5-17.5); Immature Grans % 0.7; Lymphocytes % 12.4; MCH 29.7 pg (27.0-33.0); MCHC 34.3 % (32.0-36.0); MCV 86.6 fL (80-95); MPV 9.2 fL (8.0-11.0); Monocytes % 8.6; Nucleated RBC 0 %; Platelet Count 275 10^3/uL (130-400); RBC 4.61 10^6/uL (4.36-5.78); RDW 11.9 % (11.8-14.1); RDW-SD 37.7 fL; WBC 13.76 10^3/uL (4.4-10.8)
[2020-07-22 10:41] LABS: Absolute Eosinophil Count 0.28 10^3/uL (0.0-0.7)
[2020-07-22 11:21] LABS: ESR 95 mm/hr (1-20)
[2020-07-22 11:37] LABS: Anion Gap 10.8 mmol/L (3-11); BUN 19 mg/dL (7-18); C-Reactive Protein 14.64 mg/dL (0.0-0.3); CO2 26.2 mmol/L (21.0-32.0); CREATININE 0.99 mg/dL (0.70-1.30); Chloride 98 mmol/L (98-107); Glucose 222 mg/dL (74-106); Potassium 4.1 mmol/L (3.5-5.1); Sodium 135 mmol/L (136-145)
== END 2020-07-22 03:34 ==
PROVIDERS: PCP Nurse Practitioner Family; Visit Provider Nurse Practitioner Family
DX: E11.621 Type 2 diabetes mellitus with foot ulcer (principal); L03.115 Cellulitis of right lower limb; L97.519 Non-pressure chronic ulcer of other part of right foot with unspecified severity
CPT/HCPCS: 36415; 80048; 85652; 85025; 86140

== ENCOUNTER 2020-07-22 22:53 | Inpatient (IN) | payer MEDICAID, SELFPAY ==
[2020-07-22 22:55] VITALS: BP 110/68; PULSE 89; RESP 18; TEMP 36.2; O2SAT 98
--- NOTE | 2020-07-22 23:00 | DI.RAD_ITS ---
EXAM: XR FOOT RT COMPLETE CLINICAL HISTORY: diabetic foot infection, ?osteomyelitis. TECHNIQUE: 2D digital imaging was performed. COMPARISON: CR XR FOOT RT COMPLETE from 04/03/2020 FINDINGS: BONES: No acute fracture is present. No bony destructive lesion is seen. JOINTS: No dislocation present. SOFT TISSUE: Soft tissue swelling of the foot distally. IMPRESSION: No definite radiographic evidence of osteomyelitis. DATA REPOSITORY: RADIATION DOSE DELIVERED:
--- NOTE | 2020-07-22 23:10 | W.ED.GENAD ---
Discharge Plan Disposition Patient Disposition: [facility] INPATIENT Condition: Stable Discharge Details Chief Complaint: RashLesion Clinical Impression: Diabetic foot infection Primary Care Provider: Camilla Sherman ED Provider: Pantera Booth [place] Meds and New Rx's Prescriptions: No Action rosuvastatin [Crestor] 40 mg tablet 40 mg PO HS Qty: 90 RF: 3 triamcinolone acetonide 0.5 % cream 1 applic TP .BID-QID Qty: 15 RF: 0 ammonium lactate 12 % cream 1 applic TP QD-BID PRN (Reason: dry skin) Qty: 140 RF: 3 (DME) lancets Misc See Rx Instructions .ROUTE .MEDSUPPLY Qty: 400 RF: 3 sertraline [Zoloft] 100 mg tablet 200 mg PO DAILY Qty: 180 RF: 3 clindamycin HCl 300 mg capsule 300 mg PO QID 7 Days Qty: 28 RF: 0 insulin regular hum U-500 conc 500 unit/mL (3 mL) insulin pen See Rx Instructions SC BID Qty: 6 RF: 3 (DME) pen needle, diabetic 1 EACH needle Miscellaneous TID Qty: 300 RF: 3 nitroglycerin 0.4 mg tablet, sublingual 0.4 mg SL Q5M MDD 3 doses PRN (Reason: chest pain) Qty: 30 RF: 0 (DME) FreeStyle Flako 14 Day Sensor kit See Dose Instructions .ROUTE .MEDSUPPLY Qty: 1 RF: 0 (DME) Blood Glucose Test Strip See Rx Instructions .ROUTE .MEDSUPPLY Qty: 400 RF: 3 pantoprazole 40 mg tablet,delayed release (DR/EC) 40 mg PO QAM Qty: 90 RF: 3 Jardiance 25 mg tablet 25 mg PO DAILY Qty: 90 RF: 3 lisinopril 5 mg tablet 5 mg PO DAILY Qty: 90 RF: 3 metoprolol succinate 100 mg tablet extended release 24 hr 150 mg PO DAILY Qty: 135 RF: 3 aspirin 81 mg tablet,chewable 81 mg PO DAILY Qty: 90 RF: 3 magnesium oxide 400 mg (241.3 mg magnesium) tablet 400 mg PO DAILY Qty: 90 RF: 3 metformin 1,000 mg tablet 1,000 mg PO BID Qty: 180 RF: 3 spironolactone 25 mg tablet 12.5 mg PO DAILY Qty: 45 RF: 3 clopidogrel [Plavix] 75 mg Tablet 75 mg PO DAILY Qty: 30 RF: 0 Medical Decision Making 54 yo male with multiple medical problems comes in with cc of right foot swelling and redness. He was diagnosed with a diabetic foot infection yesterday via telehealth visit with pcp's office and started on clindamycin and despite taking this for over 24 hours has worsening right foot redness and swelling so came here. No fevers or chills. His right foot is warm to touch and red, full rom, no crepitus or severe pain. HAs a 1cm ulcer on plantar surface of right foot no tunneling noted. Suspect worsening diabetic foot infection vs osteo will obtain lab work and xray and monitor pt remains stable xray without clear osteo, does have leukocytosis and elevated crp, esr still pending. Given worsening infection despite 24 hours of abx will admit for IV abx Differential Diagnosis Differential Diagnosis: diabetic foot infection, osteo Medical Records Medical records reviewed: Yes I reviewed the patient's medical records. Imaging Data Radiologic Study: Attestation: I personally reviewed and interpreted this imaging study as follows: Imaging: X-Ray Radiologist's impression: no acute findings Lab Data Lab results reviewed: Yes I reviewed the patient's lab results. HPI General Mode of arrival: wheelchair. Date/Time Provider Initiated Documentation: 07/22/20 22:55. Limitations to Documentation: no limitations. Information obtained by: patient. History of Present Illness 54 year old M presents to the emergency department with the chief complaint of right foot swelling/redness, Patient started experiencing this day(s) (2) and it has been other (worsening). No relieving factors improve symptom(s), No exacerbating factors reported . Patient did receive the following treatments prior to arrival, none Related Data Home Medications Medication Instructions Recorded Confirmed pen needle, diabetic #300 03/02/18 07/21/20 nitroglycerin 0.4 mg sublingual 0.4 mg SL Q5M PRN #30 tab-cap MDD 01/08/19 07/22/20 tablet 3 doses clopidogrel [Plavix] 75 mg PO DAILY #30 tab 02/15/19 07/22/20 flash glucose sensor #1 each 05/03/19 07/21/20 blood sugar diagnostic #400 each 06/22/19 07/21/20 pantoprazole 40 mg tablet,delayed 40 mg PO QAM #90 tab-cap 06/28/19 07/22/20 release empagliflozin 25 mg tablet 25 mg PO DAILY #90 tab-cap 09/10/19 07/22/20 lisinopril 5 mg tablet 5 mg PO DAILY #90 tab-cap 10/04/19 07/22/20 metoprolol succinate 100 mg 150 mg PO DAILY #135 tab-cap 10/04/19 07/22/20 tablet,extended release 24 hr ammonium lactate 12 % topical cream 1 applic TP QD-BID PRN #140 gm 10/19/19 07/22/20 triamcinolone acetonide 0.5 % 1 applic TP .BID-QID #15 gm 10/19/19 07/22/20 topical cream rosuvastatin 40 mg tablet 40 mg PO HS #90 tab-cap 11/22/19 07/22/20 aspirin 81 mg chewable tablet 81 mg PO DAILY #90 tab-cap 02/06/20 07/22/20 magnesium oxide 400 mg (241.3 mg 400 mg PO DAILY #90 tab-cap 02/06/20 07/22/20 magnesium) tablet metformin 1,000 mg tablet 1,000 mg PO BID #180 tab-cap 02/07/20 07/22/20 lancets #400 each 04/24/20 07/21/20 spironolactone 25 mg tablet 12.5 mg PO DAILY #45 tab-cap 04/25/20 07/22/20 sertraline 100 mg tablet 200 mg PO DAILY #180 tab-cap 06/05/20 07/22/20 clindamycin HCl 300 mg capsule 300 mg PO QID 7 Days #28 tab-cap 07/21/20 07/22/20 insulin regular hum U-500 conc See Rx Instructions SC BID #6 ml 07/21/20 07/22/20 Previous Rx's Medication Instructions Recorded nitroglycerin 0.4 mg sublingual 0.4 mg SL Q5M PRN #30 tab-cap MDD 01/08/19 tablet 3 doses clopidogrel [Plavix] 75 mg PO DAILY #30 tab 02/15/19 flash glucose sensor #1 each 05/03/19 blood sugar diagnostic #400 each 06/22/19 pantoprazole 40 mg tablet,delayed 40 mg PO QAM #90 tab-cap 06/28/19 release empagliflozin 25 mg tablet 25 mg PO DAILY #90 tab-cap 09/10/19 lisinopril 5 mg tablet 5 mg PO DAILY #90 tab-cap 10/04/19 metoprolol succinate 100 mg 150 mg PO DAILY #135 tab-cap 10/04/19 tablet,extended release 24 hr ammonium lactate 12 % topical cream 1 applic TP QD-BID PRN #140 gm 10/19/19 triamcinolone acetonide 0.5 % 1 applic TP .BID-QID #15 gm 10/19/19 topical cream rosuvastatin 40 mg tablet 40 mg PO HS #90 tab-cap 11/22/19 aspirin 81 mg chewable tablet 81 mg PO DAILY #90 tab-cap 02/06/20 magnesium oxide 400 mg (241.3 mg 400 mg PO DAILY #90 tab-cap 02/06/20 magnesium) tablet metformin 1,000 mg tablet 1,000 mg PO BID #180 tab-cap 02/07/20 lancets #400 each 04/24/20 spironolactone 25 mg tablet 12.5 mg PO DAILY #45 tab-cap 04/25/20 sertraline 100 mg tablet 200 mg PO DAILY #180 tab-cap 06/05/20 clindamycin HCl 300 mg capsule 300 mg PO QID 7 Days #28 tab-cap 07/21/20 insulin regular hum U-500 conc See Rx Instructions SC BID #6 ml 07/21/20 Allergies Allergy/AdvReac Type Severity Reaction Status Date / Time bee venom protein (honey bee) Allergy Severe Swelling/Ed Verified 07/22/20 23:00 capri Penicillins Allergy Unknown Rash Verified 07/22/20 23:00 shellfish derived Allergy Unknown Rash; Verified 07/22/20 23:00 swelling General Stated Complaint: RashLesion VAN: 3 Review of Systems All systems reviewed & are unremarkable except as noted in HPI and below Constitutional Constitutional: Denies chills, Denies fever(s) and Denies weakness Cardiovascular Cardiovascular: Denies chest pain and Denies dyspnea Respiratory Respiratory: Denies cough and Denies dyspnea Gastrointestinal Gastrointestinal: Denies abdominal pain, Denies nausea and Denies vomiting Musculoskeletal Musculoskeletal: Denies joint swelling Neurologic Neurologic: Denies weakness Psychiatric Psychiatric: Denies depression [facility] Medical History (Updated 07/22/20 @ 23:54 by Pantera Booth MD) Adult BMI > 30 (Chronic) ASCVD (arteriosclerotic cardiovascular disease) (Chronic 07/28/17) NSTEMI with HFrEF 07/11/2017 s/p MADONNA to [place]AD [place]14[place] [facility] [place]us of foot (Chronic) I advised to purchase pumice stone and gentle smooth out the surface of the callus. Chronic HFrEF (heart failure with reduced ejection fraction) (Chronic 07/20/18) LVEF 30-35% on index presentation improved to 50% on f/u echo Conductive hearing loss (Chronic 07/06/13) Depression (Chronic 11/25/11) Diabetic foot ulcer (Acute) Elevated ferritin level (Chronic 10/20/17) Erectile dysfunction (Chronic 07/06/13) Essential hypertension (Chronic 07/06/13) Gastroesophageal reflux disease (Chronic) Hyperlipidemia (Chronic 07/06/13) 11/2017 labwork: 10-year ASCVD risk = ~6.1% --> continue current high intensity statin therapy (h/o ASCVD) Hyperuricemia (Inactive) Hypomagnesemia (Acute) Microalbuminuria (Chronic) Noncompliance with medication regimen (Chronic 07/06/13) Nonproliferative diabetic retinopathy (Chronic) NSTEMI (non-ST elevated myocardial infarction) (Inactive 07/11/17) 06/2017: S/p MADONNA to [place]AD [place] [facility] Will require DAPT for a minimum of 1 year Obstructive sleep apnea, adult (Chronic 10/31/14) Severe, C-pap, Dr. Almeida continue on CPAP therapy with mask of choice,heated humidification and ramp. pressure should be set at 12 cm/H2o,alternatively auto CPAP 8-14 cm/H2O can be used. (sleep study note cameron Pulmonary hypertension (Chronic 07/14/17) 07/14/17 mild pulm hypertension, mild pulm capillary wedge pressure, elevated left ventricular end diastolic pressure, one vessel CAD-LAD w/ stent oinsertion Restless leg syndrome (Chronic 10/31/14) Per Sleep Lab Dr. Bui Sensorineural hearing loss, bilateral (Chronic 11/24/17) Tubular adenoma of colon (Inactive 10/18/14) Type 2 diabetes mellitus with retinopathy, with long-term current use of insulin (Chronic 10/27/17) Surgical History Cholecystectomy (Resolved) Colonoscopy - IV Sedation (Resolved 10/14/14) tubular adenoma Dr. Blancas S/P coronary artery stent placement (Inactive) s/p MADONNA to LAD mid 2; Dr. 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 Do you feel safe at home: Yes Do you feel safe in your relationship?: Yes Exam Const General: no acute distress Orientation: alert HENMT Head: normal to inspection Ears: external ears normal General nose exam: external nose normal Mouth: moist mucous membranes Eyes General: appearance normal, both eyes and all related structures Neck Neck: normal visual inspection Resp Effort & Inspection: normal respiratory effort and able to speak in complete sentences Cardio Rate: regular rate Skin General skin exam: no petechiae Neuro General: patient alert and patient oriented x3 Extrem General: normal to inspection Psych Mental Status: mental status grossly normal Course Vital Signs Vital signs: Vital Signs Temperature 36.2 C L 07/22/20 22:55 Pulse 89 07/22/20 22:55 Respiratory Rate 18 07/22/20 22:55 Blood Pressure 110/68 07/22/20 22:55 Pulse Oximetry 98 07/22/20 22:55 Temperature 36.2 C L 07/22/20 22:55 Temperature Source Temporal Artery Scan 07/22/20 22:55 Pulse 89 07/22/20 22:55 Respiratory Rate 18 07/22/20 22:55 Respiratory Effort Non-Labored 07/22/20 23:03 Blood Pressure 110/68 07/22/20 22:55 Blood Pressure Position Sitting 07/22/20 22:55 Pulse Oximetry 98 07/22/20 22:55 Oxygen Delivery Method Room Air 07/22/20 22:55 Oxygen Flow Rate 0 07/22/20 22:55 Pain Level 10 07/22/20 22:55 Lab/Test Results Lab/Test Results: 07/22/20 23:04 Blood Blood Culture - Pending 07/22/20 23:04 Blood Blood Culture - Pending
[2020-07-22 23:24] LABS: Abs Immature Grans 0.08 10^3/uL (0.0-0.06); Absolute Basophil Count 0.03 10^3/uL (0.0-0.2); Absolute Eosinophil Count 0.16 10^3/uL (0.0-0.7); Absolute Monocyte Count 1.44 10^3/uL (0.1-0.8); Basophils % 0.2; Eosinophils % 1.1; HCT 37.1 % (40.0-50.0); HGB 12.8 g/dL (13.5-17.5); Immature Grans % 0.6; Lymphocytes % 10.3; MCH 29.5 pg (27.0-33.0); MCHC 34.5 % (32.0-36.0); MCV 85.5 fL (80-95); MPV 9.1 fL (8.0-11.0); Monocytes % 9.9; Neutrophils % 77.9; Nucleated RBC 0 %; Platelet Count 298 10^3/uL (130-400); RBC 4.34 10^6/uL (4.36-5.78); RDW-SD 37.8 fL
[2020-07-22 23:28] LABS: Absolute Lymphocyte Count 1.49 10^3/uL (1.2-3.4)
[2020-07-22 23:37] LABS: ALT 16 U/L (16-63); AST 13 U/L (15-37); Alkaline Phosphatase 110 U/L (46-116); Anion Gap 9.3 mmol/L (3-11); BUN 22 mg/dL (7-18); Bilirubin, Total 0.8 mg/dL (0.2-1.0); C-Reactive Protein 16.75 mg/dL (0.0-0.3); CO2 26.7 mmol/L (21.0-32.0); CREATININE 1.08 mg/dL (0.70-1.30); Calcium 9.2 mg/dL (8.5-10.1); Chloride 97 mmol/L (98-107); Glucose 250 mg/dL (74-106); Potassium 4.1 mmol/L (3.5-5.1); Sodium 133 mmol/L (136-145); Total Protein 7.3 g/dL (6.4-8.2)
[2020-07-22 23:43] LABS: INR 1.2 (0.9-1.1); PTT Activated 38.9 sec (21.0-31.4); Prothrombin Time 11.9 sec (9.3-11.0)
--- NOTE | 2020-07-22 23:45 | DI.VRAD_ITS ---
PROCEDURE INFORMATION: Exam: XR Right Foot Complete Exam date and time: 07/22/2020 11:27 PM Age: 54 years old Clinical indication: Right; Patient HX: Pain and redness in R foot proximal to 2nd , 3rd, and 4th toes. Diabetic foot infection, ? osteomyelitis TECHNIQUE: Imaging protocol: XR Right foot. Views: 3 or more views. COMPARISON: CR XR FOOT RT COMPLETE 04/03/2020 2:18 PM FINDINGS: Bones/joints: Osseous anatomic alignment is well preserved. No acutely displaced fracture or dislocation. Joint spaces are well preserved. Soft tissues: Mild soft tissue swelling at the distal segments of the foot. IMPRESSION: No definitive radiographic evidence for osteomyelitis. Dictated and Authenticated by: Geoffrey Viramontes MD. Ordering:ANDRADE Mott MD
[2020-07-22 23:54] LABS: Procalcitonin 0.1 ng/mL
[2020-07-23] VITALS (9 sets, daily range): BP systolic 96–115; BP diastolic 51–75; PULSE 69–84; RESP 16–20; TEMP 36–37.7; O2SAT 95–99
[2020-07-23 00:06] LABS: ESR 100 mm/hr (1-20)
[2020-07-23] MEDS: CIPROFLOXACIN 400 MG/200 ML BAG 200 MG IVPB ×3 (00:09→23:25)
[2020-07-23] MEDS: VANCOMYCIN 2,000 MG in Normal Saline 500 ML 333.3333 MG IVPB (01:16)
[2020-07-23] MEDS: metroNIDAZOLE 500 MG/100 ML BAG 100 MG IVPB ×4 (03:15→20:52)
[2020-07-23] MEDS: Normal Saline Flush 10 ML SYR IVP ×3 (04:30→23:25)
--- NOTE | 2020-07-23 06:10 | HPE_ITS ---
Date of service: 07/23/20 Time of Service: 06:10 Assessment and Plan Assessment and plan (1) Diabetic foot infection: Status: Acute Assessment and plan: Diabetic foot ulcer. Given overall picture I would strongly suspect osteo. Will obtain wound culture, continue antibiotic regimen as is for now and consult Podiatry. History of Present Illness History of Present Illness Chief Complaint: foot ulcer Narrative: 54 male diabetic. Reports months of right foot ulcer, being managed by podiatry. Reports pain and swelling over past 2-3 days. Started on Clinda as outpatient, h ere due to persistent and worsening symptoms. In ER purulent ulcer noted. Film neg for osteo, ESR 100, CRP 16, WBC 14K. Blood cxx obtained and started on Vanco, Cipro and Flagyl (note PCN allergy). Review of Systems All systems reviewed & are unremarkable except as noted in HPI and below PFSH Medical History Adult BMI > 30 (Chronic) ASCVD (arteriosclerotic cardiovascular disease) (Chronic 07/28/17) NSTEMI with HFrEF 07/11/2017 s/p MADONNA to mLAD on 07/14/2017 at [facility] [place] Callus of foot (Chronic) I advised to purchase pumice stone and gentle smooth out the surface of the callus. Chronic HFrEF (heart failure with reduced ejection fraction) (Chronic 07/20/18) LVEF 30-35% on index presentation improved to 50% on f/u echo Conductive hearing loss (Chronic 07/06/13) Depression (Chronic 11/25/11) Diabetic foot ulcer (Acute) Elevated ferritin level (Chronic 10/20/17) Erectile dysfunction (Chronic 07/06/13) Essential hypertension (Chronic 07/06/13) Gastroesophageal reflux disease (Chronic) Hyperlipidemia (Chronic 07/06/13) 11/2017 labwork: 10-year ASCVD risk = ~6.1% --> continue current high intensity statin therapy (h/o ASCVD) Hyperuricemia (Inactive) Hypomagnesemia (Acute) Microalbuminuria (Chronic) Noncompliance with medication regimen (Chronic 07/06/13) Nonproliferative diabetic retinopathy (Chronic) NSTEMI (non-ST elevated myocardial infarction) (Inactive 07/11/17) 06/2017: S/p MADONNA to mLAD at [facility] [place] Will require DAPT for a minimum of 1 year Obstructive sleep apnea, adult (Chronic 10/31/14) Severe, C-pap, Dr. Almeida continue on CPAP therapy with mask of choice,heated humidification and ramp. pressure should be set at 12 cm/H2o,alternatively auto CPAP 8-14 cm/H2O can be used. (sleep study note cameron Pulmonary hypertension (Chronic 07/14/17) 07/14/17 mild pulm hypertension, mild pulm capillary wedge pressure, elevated left ventricular end diastolic pressure, one vessel CAD-LAD w/ stent oinsertion Restless leg syndrome (Chronic 10/31/14) Per Sleep Lab Dr. Bui Sensorineural hearing loss, bilateral (Chronic 11/24/17) Tubular adenoma of colon (Inactive 10/18/14) Type 2 diabetes mellitus with retinopathy, with long-term current use of insulin (Chronic 10/27/17) Surgical History Cholecystectomy (Resolved) Colonoscopy - IV Sedation (Resolved 10/14/14) tubular adenoma Dr. Blancas S/P coronary artery stent placement (Inactive) s/p MADONNA to LAD mid 2; Dr. 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 Do you feel safe at home: Yes Do you feel safe in your relationship?: Yes Meds Home Medications and Allergies Home Medications Medication Instructions Recorded Confirmed Type pen needle, diabetic #300 03/02/18 07/21/20 History nitroglycerin 0.4 mg sublingual 0.4 mg SL Q5M PRN #30 tab-cap MDD 01/08/19 07/22/20 Rx tablet 3 doses clopidogrel [Plavix] 75 mg PO DAILY #30 tab 02/15/19 07/22/20 Rx flash glucose sensor #1 each 05/03/19 07/21/20 Rx blood sugar diagnostic #400 each 06/22/19 07/21/20 Rx pantoprazole 40 mg tablet,delayed 40 mg PO QAM #90 tab-cap 06/28/19 07/22/20 Rx release empagliflozin 25 mg tablet 25 mg PO DAILY #90 tab-cap 09/10/19 07/22/20 Rx lisinopril 5 mg tablet 5 mg PO DAILY #90 tab-cap 10/04/19 07/22/20 Rx metoprolol succinate 100 mg 150 mg PO DAILY #135 tab-cap 10/04/19 07/22/20 Rx tablet,extended release 24 hr ammonium lactate 12 % topical cream 1 applic TP QD-BID PRN #140 gm 10/19/19 07/22/20 Rx triamcinolone acetonide 0.5 % 1 applic TP .BID-QID #15 gm 10/19/19 07/22/20 Rx topical cream rosuvastatin 40 mg tablet 40 mg PO HS #90 tab-cap 11/22/19 07/22/20 Rx aspirin 81 mg chewable tablet 81 mg PO DAILY #90 tab-cap 02/06/20 07/22/20 Rx magnesium oxide 400 mg (241.3 mg 400 mg PO DAILY #90 tab-cap 02/06/20 07/22/20 Rx magnesium) tablet metformin 1,000 mg tablet 1,000 mg PO BID #180 tab-cap 02/07/20 07/22/20 Rx lancets #400 each 04/24/20 07/21/20 Rx spironolactone 25 mg tablet 12.5 mg PO DAILY #45 tab-cap 04/25/20 07/22/20 Rx sertraline 100 mg tablet 200 mg PO DAILY #180 tab-cap 06/05/20 07/22/20 Rx clindamycin HCl 300 mg capsule 300 mg PO QID 7 Days #28 tab-cap 07/21/20 07/22/20 Rx insulin regular hum U-500 conc See Rx Instructions SC BID #6 ml 07/21/20 07/22/20 Rx Allergies Allergy/AdvReac Type Severity Reaction Status Date / Time bee venom protein (honey bee) Allergy Severe Swelling/Ed Verified 07/22/20 23:00 capri Penicillins Allergy Unknown Rash Verified 07/22/20 23:00 shellfish derived Allergy Unknown Rash; Verified 07/22/20 23:00 swelling Exam Narrative Exam Narrative: 104/67, 82, 37.2, 17, 97% RA. HEENT unremarkable; lungs clear; hear RRR w/o MRG; abdomen soft and NT extremities: right foot is warm, swollen and with ulcer overlying MT 2 with gross purulent D/C. PT pulse strong. Results Labs Result diagrams: 07/22/20 23:13 07/22/20 23:13 Labs: Laboratory Results - last 24 hr 07/22/20 07/22/20 07/22/20 23:13 23:13 23:13 WBC RBC Hgb Hct MCV MCH MCHC RDW Plt Count MPV Immature Gran % Neutrophils % Lymphocytes % Monocytes % Eosinophils % Basophils % Nucleated RBC % Absolute Neutrophils Absolute Lymphocytes Absolute Monocytes Absolute Eosinophils Absolute Basophils ESR PT INR APTT VBG Lactate 1.0 Sodium 133 L Potassium 4.1 Chloride 97 L Carbon Dioxide 26.7 Anion Gap 9.3 BUN 22 H Creatinine 1.08 Estimated GFR/1.73 m2 >= 60.00 Glucose 250 H Calcium 9.2 Total Bilirubin 0.8 AST 13 L ALT 16 Alkaline Phosphatase 110 C-Reactive Protein 16.75 H Total Protein 7.3 Albumin 3.0 L Procalcitonin 0.1 07/22/20 07/22/20 23:13 23:13 WBC 14.50 H RBC 4.34 L Hgb 12.8 L Hct 37.1 L MCV 85.5 MCH 29.5 MCHC 34.5 RDW 12.0 Plt Count 298 MPV 9.1 Immature Gran % 0.6 Neutrophils % 77.9 Lymphocytes % 10.3 Monocytes % 9.9 Eosinophils % 1.1 Basophils % 0.2 Nucleated RBC % 0 Absolute Neutrophils 11.30 H Absolute Lymphocytes 1.49 Absolute Monocytes 1.44 H Absolute Eosinophils 0.16 Absolute Basophils 0.03 ESR 100 H PT 11.9 H INR 1.2 H APTT 38.9 H VBG Lactate Sodium Potassium Chloride Carbon Dioxide Anion Gap BUN Creatinine Estimated GFR/1.73 m2 Glucose Calcium Total Bilirubin AST ALT Alkaline Phosphatase C-Reactive Protein Total Protein Albumin Procalcitonin Last Vital Signs Temp 37.2 C 07/23/20 03:55 Pulse 82 07/23/20 03:55 Resp 17 07/23/20 03:55 BP 104/67 07/23/20 03:55 Pulse Ox 97 07/23/20 03:55 COVID-19 Screening Have you,or household,traveled outside [place] in last 14 days?: No Had IN PERSON contact w/suspected or confirmed C-19 person: No
[2020-07-23 08:07] LABS: HCT 34.6 % (40.0-50.0); HGB 12.1 g/dL (13.5-17.5); MCH 29.7 pg (27.0-33.0); MPV 9.4 fL (8.0-11.0); Platelet Count 255 10^3/uL (130-400); RBC 4.07 10^6/uL (4.36-5.78); RDW-SD 37.3 fL; WBC 13.14 10^3/uL (4.4-10.8)
[2020-07-23] MEDS: Aspirin 81 MG CHEW PO (08:26)
[2020-07-23] MEDS: metFORMIN 500 MG TAB 1000 MG PO ×2 (08:26→17:11)
[2020-07-23] MEDS: Magnesium Oxide 400 MG TAB PO (08:26)
[2020-07-23] MEDS: Pantoprazole 40 MG TABCR PO (08:27)
[2020-07-23] MEDS: Metoprolol CR 50 MG TABCR 150 MG PO (08:27)
[2020-07-23] MEDS: Clopidogrel 75 MG TAB PO (08:27)
[2020-07-23] MEDS: Lisinopril 5 MG TAB PO (08:27)
[2020-07-23] MEDS: Insulin Aspart 300 UNITS/3 ML PEN SC ×3 (08:28→23:39)
[2020-07-23] MEDS: VANCOMYCIN 1,250 MG in Normal Saline 250 ML 166.6666 MG IVPB (10:06)
[2020-07-23 10:36] LABS: Anion Gap 10.7 mmol/L (3-11); BUN 19 mg/dL (7-18); CO2 24.3 mmol/L (21.0-32.0); CREATININE 0.88 mg/dL (0.70-1.30); Calcium 8.7 mg/dL (8.5-10.1); Chloride 99 mmol/L (98-107); Glucose 249 mg/dL (74-106); Magnesium 1.3 mg/dL (1.8-2.4); Potassium 4.1 mmol/L (3.5-5.1); Sodium 134 mmol/L (136-145)
[2020-07-23] MEDS: Heparin 5,000 UNITS/ML VIAL 5000 UNITS SC ×2 (11:08→18:22)
[2020-07-23] MEDS: MAGNESIUM SULFATE 4 GM/100 ML BAG IVPB (12:15)
--- NOTE | 2020-07-23 12:56 | PDOC.CMIN ---
- If Service Date Differs Date of service: 07/23/20 Time of Service: 12:56 Care Management Initial Assess REASON FOR HOSPITALIZATION:: Diabetic foot ulcer PAST MEDICAL HISTORY/PAST SURGICAL HISTORY:: Medical History: Hyperuricemia (Inactive). Adult BMI > 30 (Chronic). Microalbuminuria (Chronic). Callus of foot (Chronic). Type 2 diabetes mellitus with retinopathy, with long-term current use of insulin (Chronic 10/27/17). Tubular adenoma of colon (Inactive 10/18/14). Sensorineural hearing loss, bilateral (Chronic 11/24/17). Restless leg syndrome (Chronic 10/31/14). Pulmonary hypertension (Chronic 07/14/17). Obstructive sleep apnea, adult (Chronic 10/31/14). Nonproliferative diabetic retinopathy (Chronic). Noncompliance with medication regimen (Chronic 07/06/13). NSTEMI (non-ST elevated myocardial infarction) (Inactive 07/11/17). Hyperlipidemia (Chronic 07/06/13). Erectile dysfunction (Chronic 07/06/13). Essential hypertension (Chronic 07/06/13). Elevated ferritin level (Chronic 10/20/17). Depression (Chronic 11/25/11). Conductive hearing loss (Chronic 07/06/13). Chronic HFrEF (heart failure with reduced ejection fraction) (Chronic 07/20/18). ASCVD (arteriosclerotic cardiovascular disease) (Chronic 07/28/17). Surgical History: S/P coronary artery stent placement (Inactive). Cholecystectomy (Resolved). Colonoscopy - IV Sedation (Resolved 10/14/14) PREVIOUS FUNCTIONAL STATUS/SOCIAL/FAMILY SUPPORTS:: Edward lives with his spouse here in [place], he has been out of work related to his foot ulcer. He is applying for disability with the help of [facility]. Edward's spouse is Candy he has one son who lives in [place]. He is independent with ADL's and transportation. Edward has a limited ability to read and write, he learns well by demonstration and verbal teaching. CURRENT FUNCTIONAL STATUS:: Edward is alert he is engaged during assessment. He states he has been seeing for his foot in [place], [place]. He states he stopped working because of the pain and difficulty walking on his foot. He states he has had this ulcer for several months. ADVANCE DIRECTIVES:: On file agent is Candy Has patient been provided with info about the portal/API?: Yes Did the patient sign up for the portal?: No CODE STATUS:: Full Code INSURANCE COVERAGE / FINANCIAL ISSUES:: Medicaid CURRENT HOME/COMMUNITY SERVICES/EQUIPMENT:: [facility], no other services. PRIMARY CARE PHYSICIAN:: Camilla Sherman POTENTIAL DISCHARGE NEEDS:: Follow up with pcp, new referral to home for nursing if needed. PATIENT/FAMILY EDUCATION NEEDS:: Discharge education, limitations and follow up plan of care including ask me three and self management. ANTICIPATED BARRIERS TO DISCHARGE:: None TRANSPORTATION:: Self his car is in the parking lot. PLAN:: Edward will be discharged home when medically ready. Awaiting a podiatry consult to determined treatment. Edward agrees to home health services for nursing for wound care and ongoing assessment of his foot. CM to continue assess for discharge needs.
[2020-07-23 14:21] LABS: COVID-19 RT-PCR UVMMC Result Negative (Negative)
--- NOTE | 2020-07-23 14:36 | CHAPLAIN ---
Ganesh was in bed when I visited. He did not seem interested in further conversation than introductions. I let him know I'm available if I canbe of any help. Ganesh is connected to the [facility] [employer], but declined my offer to contact the jain for him.
--- NOTE | 2020-07-23 16:16 | PHA.REVIEW ---
Pharmacy Admission Review - Admission Clinical Review (Last Reviewed 07/23/20 @ 06:13 by Keven Friedman MD) Diabetic foot infection (Acute) bee venom protein (honey bee) Allergy (Severe, Verified 07/22/20 23:00) Swelling/Edema Penicillins Allergy (Unknown, Verified 07/22/20 23:00) Rash shellfish derived Allergy (Unknown, Verified 07/22/20 23:00) Rash; swelling Height 5 ft 11 in Weight 113.9 kg - Renal Dosing Renal Dosing: BUN 19 mg/dL (7-18) H 07/23/20 07:45 Creatinine 0.88 mg/dL (0.70-1.30) 07/23/20 07:45 Medications needing adjustments: Reviewed - Anticoagulation Anticoagulation: Hgb 12.1 g/dL (13.5-17.5) L 07/23/20 07:55 Hct 34.6 % (40.0-50.0) L 07/23/20 07:55 Plt Count 255 10^3/uL (130-400) 07/23/20 07:55 INR 1.2 (0.9-1.1) H 07/22/20 23:13 Creatinine 0.88 mg/dL (0.70-1.30) 07/23/20 07:45 DVT Prohphylaxis: Reviewed Medications: Heparin Therapeutic Anticoagulation: Reviewed Medications: Aspirin - Opiate Usage Scheduled Bowel Reg ordered if on Opiates?: Yes - Relevant Labs ESR 100 mm/hr (1-20) H 07/22/20 23:13 Sodium 134 mmol/L (136-145) L 07/23/20 07:45 Potassium 4.1 mmol/L (3.5-5.1) 07/23/20 07:45 Chloride 99 mmol/L (98-107) 07/23/20 07:45 Magnesium 1.3 mg/dL (1.8-2.4) L 07/23/20 07:45 C-Reactive Protein 16.75 mg/dL (0.0-0.3) H 07/22/20 23:13 Electrolytes, C-Reactive P, ESR: Reviewed - DM Control DM Control: Glucose 249 mg/dL (74-106) H 07/23/20 07:45 Finger Stick Blood Glucose 250 Finger Stick Blood Glucose 250 Finger Stick Blood Glucose 279 Insulin Dosing: Reviewed - Heart Failure/VT EF%, YVETTE's, B-Blockers, Diuretics: Reviewed - BP Control BP Control: Blood Pressure 106/75 Blood Pressure 115/73 Blood Pressure 106/64 If elevated: Reviewed - Qtc Review If Elevated: N/A - IV to PO Switch IV Medications: Reviewed - Home Meds Home Med List reviewed: Intervened (confirmed home med list; spoke with pt's pharmacy -- jardiance has not been filled in awhile but still active med per PRACHI's med list; dc'd clindamycin from home med list) - Current meds Current Medication Order Review: Intervened (adjusted some times, dc'd ed orders/dup orders)
--- NOTE | 2020-07-23 16:33 | PGE_ITS ---
Date of Service Date of service: 07/23/20 Time of Service: 16:33 Subjective Subjective Interval history since last seen: The patient states that he feels better. His RLE is not hurting as much. He was evaluated by Dr Valencia, who was able to insert the probe to at least 4.5 cm. He obtained a deeper wound culture. Blood cx positive for GPCs. Current abx appropriate. Will recheck cultures in the am, obtain echo, and for MRI w/w/o contrast tomorrow. Anticipate he will require surgical debridement. Objective Objective Clinical Data: Abnormal lab results 07/22/20 07/22/20 07/22/20 Range/Units 23:13 23:13 23:13 WBC 14.50 H (4.4-10.8) 10^3/uL RBC 4.34 L (4.36-5.78) 10^6/uL Hgb 12.8 L (13.5-17.5) g/dL Hct 37.1 L (40.0-50.0) % Absolute Neutrophils 11.30 H (1.2-6.7) 10^3/uL Absolute Monocytes 1.44 H (0.1-0.8) 10^3/uL ESR 100 H (1-20) mm/hr PT (9.3-11.0) sec INR (0.9-1.1) APTT (21.0-31.4) sec Sodium 133 L (136-145) mmol/L Chloride 97 L (98-107) mmol/L BUN 22 H (7-18) mg/dL Glucose 250 H (74-106) mg/dL Magnesium (1.8-2.4) mg/dL AST 13 L (15-37) U/L C-Reactive Protein 16.75 H (0.0-0.3) mg/dL Albumin 3.0 L (3.4-5.0) g/dL 07/22/20 07/23/20 07/23/20 Range/Units 23:13 07:45 07:55 WBC 13.14 H (4.4-10.8) 10^3/uL RBC 4.07 L (4.36-5.78) 10^6/uL Hgb 12.1 L (13.5-17.5) g/dL Hct 34.6 L (40.0-50.0) % Absolute Neutrophils (1.2-6.7) 10^3/uL Absolute Monocytes (0.1-0.8) 10^3/uL ESR (1-20) mm/hr PT 11.9 H (9.3-11.0) sec INR 1.2 H (0.9-1.1) APTT 38.9 H (21.0-31.4) sec Sodium 134 L (136-145) mmol/L Chloride (98-107) mmol/L BUN 19 H (7-18) mg/dL Glucose 249 H (74-106) mg/dL Magnesium 1.3 L (1.8-2.4) mg/dL AST (15-37) U/L C-Reactive Protein (0.0-0.3) mg/dL Albumin (3.4-5.0) g/dL Vital Signs Temperature 36.6 C 07/23/20 16:08 Temperature Source Tympanic 07/23/20 16:08 Pulse 83 07/23/20 16:08 Pulse Rhythm Regular 07/23/20 05:53 Respiratory Rate 20 07/23/20 16:08 Respiratory Effort Non-Labored 07/23/20 05:53 Respiratory Depth Normal 07/23/20 05:53 Respiratory Pattern Normal 07/23/20 05:53 Blood Pressure 106/75 07/23/20 16:08 Blood Pressure Position Sitting 07/22/20 22:55 Pulse Oximetry 96 07/23/20 16:08 Oxygen Delivery Method Room Air 07/23/20 16:08 Oxygen Flow Rate 0 07/23/20 16:08 Pain Level 0 07/23/20 16:08 Intake & Output 07/22/20 07/23/20 07/23/20 23:59 11:59 23:59 Intake Total 1140 / 1620 480 / 1620 Output Total 600 / 600 Balance 540 / 1020 480 / 1020 Weight 102.058 kg 113.9 kg Intake: IV 900 / 900 Oral 240 / 720 480 / 720 Output: Urine 600 / 600 Other: Urine Color Yellow Urine Appearance Clear Urine Odor Normal Voiding Methods Urinal Laboratory Results WBC 13.14 10^3/uL (4.4-10.8) H 07/23/20 07:55 RBC 4.07 10^6/uL (4.36-5.78) L 07/23/20 07:55 Hgb 12.1 g/dL (13.5-17.5) L 07/23/20 07:55 Hct 34.6 % (40.0-50.0) L 07/23/20 07:55 MCV 85.0 fL (80-95) 07/23/20 07:55 MCH 29.7 pg (27.0-33.0) 07/23/20 07:55 MCHC 35.0 % (32.0-36.0) 07/23/20 07:55 RDW 12.0 % (11.8-14.1) 07/23/20 07:55 Plt Count 255 10^3/uL (130-400) 07/23/20 07:55 MPV 9.4 fL (8.0-11.0) 07/23/20 07:55 Immature Gran % 0.6 07/22/20 23:13 Neutrophils % 77.9 07/22/20 23:13 Lymphocytes % 10.3 07/22/20 23:13 Monocytes % 9.9 07/22/20 23:13 Eosinophils % 1.1 07/22/20 23:13 Basophils % 0.2 07/22/20 23:13 Nucleated RBC % 0 % 07/22/20 23:13 Absolute Neutrophils 11.30 10^3/uL (1.2-6.7) H 07/22/20 23:13 Absolute Lymphocytes 1.49 10^3/uL (1.2-3.4) 07/22/20 23:13 Absolute Monocytes 1.44 10^3/uL (0.1-0.8) H 07/22/20 23:13 Absolute Eosinophils 0.16 10^3/uL (0.0-0.7) 07/22/20 23:13 Absolute Basophils 0.03 10^3/uL (0.0-0.2) 07/22/20 23:13 ESR 100 mm/hr (1-20) H 07/22/20 23:13 PT 11.9 sec (9.3-11.0) H 07/22/20 23:13 INR 1.2 (0.9-1.1) H 07/22/20 23:13 APTT 38.9 sec (21.0-31.4) H 07/22/20 23:13 VBG Lactate 1.0 mmol/L (0.6-1.4) 07/22/20 23:13 Sodium 134 mmol/L (136-145) L 07/23/20 07:45 Potassium 4.1 mmol/L (3.5-5.1) 07/23/20 07:45 Chloride 99 mmol/L (98-107) 07/23/20 07:45 Carbon Dioxide 24.3 mmol/L (21.0-32.0) 07/23/20 07:45 Anion Gap 10.7 mmol/L (3-11) 07/23/20 07:45 BUN 19 mg/dL (7-18) H 07/23/20 07:45 Creatinine 0.88 mg/dL (0.70-1.30) 07/23/20 07:45 Estimated GFR/1.73 m2 >= 60.00 (mL/min/1.73m2) 07/23/20 07:45 Glucose 249 mg/dL (74-106) H 07/23/20 07:45 Calcium 8.7 mg/dL (8.5-10.1) 07/23/20 07:45 Magnesium 1.3 mg/dL (1.8-2.4) L 07/23/20 07:45 Total Bilirubin 0.8 mg/dL (0.2-1.0) 07/22/20 23:13 AST 13 U/L (15-37) L 07/22/20 23:13 ALT 16 U/L (16-63) 07/22/20 23:13 Alkaline Phosphatase 110 U/L (46-116) 07/22/20 23:13 C-Reactive Protein 16.75 mg/dL (0.0-0.3) H 07/22/20 23:13 Total Protein 7.3 g/dL (6.4-8.2) 07/22/20 23:13 Albumin 3.0 g/dL (3.4-5.0) L 07/22/20 23:13 Procalcitonin 0.1 ng/mL 07/22/20 23:13 COVID-19 PCR Negative (Negative) 07/23/20 00:09 Nasopharyn COVID-19 PCR Not Applicable 07/23/20 00:09 Ref Test Perform Site [facility] lab 07/23/20 00:09
--- NOTE | 2020-07-23 16:40 | W.PODCONSULT ---
Date of service: 07/23/20 Time of Service: 16:41 History of Present Illness History of Present Illness Chief Complaint: Diabetic ulcer right foot with cellulitis Narrative: 54-year-old white male seen on the floor in his bed with longstanding callus under the right second metatarsal head which is subsequently advanced to become a diabetic wound of the right foot with cellulitis. He had increasing pain and was admitted through the emergency department. He indicates that he is had podiatry care by Dr. Benson for this since early this year which has consisted of wound debridement, diabetic shoes and diabetic inserts. He does admit to neuropathy. [facility] Medical History Adult BMI > 30 (Chronic) ASCVD (arteriosclerotic cardiovascular disease) (Chronic 07/28/17) NSTEMI with HFrEF 07/11/2017 s/p MADONNA to mLAD on 07/14/2017 at [facility] [place] Callus of foot (Chronic) I advised to purchase pumice stone and gentle smooth out the surface of the callus. Chronic HFrEF (heart failure with reduced ejection fraction) (Chronic 07/20/18) LVEF 30-35% on index presentation improved to 50% on f/u echo Conductive hearing loss (Chronic 07/06/13) Depression (Chronic 11/25/11) Diabetic foot ulcer (Acute) Elevated ferritin level (Chronic 10/20/17) Erectile dysfunction (Chronic 07/06/13) Essential hypertension (Chronic 07/06/13) Gastroesophageal reflux disease (Chronic) Hyperlipidemia (Chronic 07/06/13) 11/2017 labwork: 10-year ASCVD risk = ~6.1% --> continue current high intensity statin therapy (h/o ASCVD) Hyperuricemia (Inactive) Hypomagnesemia (Acute) Microalbuminuria (Chronic) Noncompliance with medication regimen (Chronic 07/06/13) Nonproliferative diabetic retinopathy (Chronic) NSTEMI (non-ST elevated myocardial infarction) (Inactive 07/11/17) 06/2017: S/p MADONNA to mLAD at [facility] [place] Will require DAPT for a minimum of 1 year Obstructive sleep apnea, adult (Chronic 10/31/14) Severe, C-pap, Dr. Almeida continue on CPAP therapy with mask of choice,heated humidification and ramp. pressure should be set at 12 cm/H2o,alternatively auto CPAP 8-14 cm/H2O can be used. (sleep study note [facility] Pulmonary hypertension (Chronic 07/14/17) 07/14/17 mild pulm hypertension, mild pulm capillary wedge pressure, elevated left ventricular end diastolic pressure, one vessel CAD-LAD w/ stent oinsertion Restless leg syndrome (Chronic 10/31/14) Per Sleep Lab Dr. Bui Sensorineural hearing loss, bilateral (Chronic 11/24/17) Tubular adenoma of colon (Inactive 10/18/14) Type 2 diabetes mellitus with retinopathy, with long-term current use of insulin (Chronic 10/27/17) Surgical History Cholecystectomy (Resolved) Colonoscopy - IV Sedation (Resolved 10/14/14) tubular adenoma Dr. Blancas S/P coronary artery stent placement (Inactive) s/p MADONNA to LAD mid 2; Dr. Fercho Eddy, [facility], 07/14/2017 Family History Mother Essential hypertension Father Lung cancer Social History Smoking/Tobacco Use Status: Never Alcohol Intake: never Drug use: Never Substance use type: does not use Household members: spouse Housing: apartment Number of Children: 1 Communication Needs: None 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 transit driver: No Do you feel safe at home: Yes Do you feel safe in your relationship?: Yes Exam Narrative Exam Narrative: Patient is resting comfortably in bed. He does indicate that he is feeling a little better since his admission with less foot pain. He denies shortness of breath or chest pain. Peripheral pulses are manually palpable at the ankle 2 out of 4 bilaterally. Feet are warm to the touch. He has good capillary return to all toes. Pedal hair is appreciated. There is a hypertrophic callus centered under the right second metatarsal head with yellowish-green purulence coming from the wound with erythema surrounding the wound with cellulitis extending dorsally through the second intermetatarsal space between the toes and extending proximally to about midway down the metatarsals. Muscle groups of 5 out of 5 bilaterally Skeletal exam reveals contractures of the lesser toes. The wound is under the right second metatarsal head. Admission radiographs are negative for obvious osteomyelitis but additional imaging will be ordered, MRI with and without contrast for tomorrow as osteomyelitis is highly suspect. Neurologically he has decreased sensation in both feet as I am able to debride and manipulate this wound with minimal discomfort. Lab work was reviewed with WBCs at 13.14, absolute neutrophils of 11.30 sed rate 100 CRP 16.75 Impressions: Mal perforans diabetic ulceration right forefoot with cellulitis and abscess Diabetic neuropathy Plan: #10 scalpel I sharply debrided the wound and was able to express approximately 2 cc of a creamy greenish-yellow pus from the wound. The wound was probed and tracked directly down towards the second metatarsal head then distal laterally through the intermetatarsal space practically to the deep surface of the skin dorsally on the foot approximately 4 to 4-1/2 cm in depth. The ulcer itself measured 5 mm in length by 3 mm in width and was 4-1/2 cm deep. The hypertrophic border surrounding the central wound measured 6 cm x 7.2cm. A deep culture was obtained and sent to microbiology for Gram stain and sensitivities. The wound was packed with Nu Gauze, 4 x 4's and a Kerlix roll. Dr. Yoon entered the room and evaluated the wound during the debridement and has offered to order the MRI on the patient's behalf. I agree with the current antibiotic coverage pending culture results. Surgical washout will likely be needed, extent of debridement pending MRI findings. Will follow after the MRI studies. Results Last Vital Signs Temp 36.6 C 07/23/20 16:08 Pulse 83 07/23/20 16:08 Resp 20 07/23/20 16:08 BP 106/75 07/23/20 16:08 Pulse Ox 96 07/23/20 16:08 Labs Result diagrams: 07/23/20 07:55 07/23/20 07:45 Labs: Laboratory Results - last 24 hr 07/22/20 07/22/20 07/22/20 23:13 23:13 23:13 WBC RBC Hgb Hct MCV MCH MCHC RDW Plt Count MPV Immature Gran % Neutrophils % Lymphocytes % Monocytes % Eosinophils % Basophils % Nucleated RBC % Absolute Neutrophils Absolute Lymphocytes Absolute Monocytes Absolute Eosinophils Absolute Basophils ESR PT INR APTT VBG Lactate 1.0 Sodium 133 L Potassium 4.1 Chloride 97 L Carbon Dioxide 26.7 Anion Gap 9.3 BUN 22 H Creatinine 1.08 Estimated GFR/1.73 m2 >= 60.00 Glucose 250 H Calcium 9.2 Magnesium Total Bilirubin 0.8 AST 13 L ALT 16 Alkaline Phosphatase 110 C-Reactive Protein 16.75 H Total Protein 7.3 Albumin 3.0 L Procalcitonin 0.1 COVID-19 PCR Nasopharyn COVID-19 PCR Ref Test Perform Site 07/22/20 07/22/20 07/23/20 23:13 23:13 00:09 WBC 14.50 H RBC 4.34 L Hgb 12.8 L Hct 37.1 L MCV 85.5 MCH 29.5 MCHC 34.5 RDW 12.0 Plt Count 298 MPV 9.1 Immature Gran % 0.6 Neutrophils % 77.9 Lymphocytes % 10.3 Monocytes % 9.9 Eosinophils % 1.1 Basophils % 0.2 Nucleated RBC % 0 Absolute Neutrophils 11.30 H Absolute Lymphocytes 1.49 Absolute Monocytes 1.44 H Absolute Eosinophils 0.16 Absolute Basophils 0.03 ESR 100 H PT 11.9 H INR 1.2 H APTT 38.9 H VBG Lactate Sodium Potassium Chloride Carbon Dioxide Anion Gap BUN Creatinine Estimated GFR/1.73 m2 Glucose Calcium Magnesium Total Bilirubin AST ALT Alkaline Phosphatase C-Reactive Protein Total Protein Albumin Procalcitonin COVID-19 PCR Negative Nasopharyn COVID-19 PCR Not Applicable Ref Test Perform Site [facility] 07/23/20 07/23/20 07:45 07:55 WBC 13.14 H RBC 4.07 L Hgb 12.1 L Hct 34.6 L MCV 85.0 MCH 29.7 MCHC 35.0 RDW 12.0 Plt Count 255 MPV 9.4 Immature Gran % Neutrophils % Lymphocytes % Monocytes % Eosinophils % Basophils % Nucleated RBC % Absolute Neutrophils Absolute Lymphocytes Absolute Monocytes Absolute Eosinophils Absolute Basophils ESR PT INR APTT VBG Lactate Sodium 134 L Potassium 4.1 Chloride 99 Carbon Dioxide 24.3 Anion Gap 10.7 BUN 19 H Creatinine 0.88 Estimated GFR/1.73 m2 >= 60.00 Glucose 249 H Calcium 8.7 Magnesium 1.3 L Total Bilirubin AST ALT Alkaline Phosphatase C-Reactive Protein Total Protein Albumin Procalcitonin COVID-19 PCR Nasopharyn COVID-19 PCR Ref Test Perform Site
[2020-07-23] MEDS: Acetaminophen 500 MG TAB 1000 MG PO (20:52)
[2020-07-23] MEDS: VANCOMYCIN 1,250 MG in Normal Saline 250 ML 167 MG IVPB (21:03)
[2020-07-24 01:55] VITALS: BP 107/71; PULSE 77; RESP 18; TEMP 36.5; O2SAT 94
[2020-07-24] MEDS: metroNIDAZOLE 500 MG/100 ML BAG 100 MG IVPB ×4 (02:04→19:37)
[2020-07-24] MEDS: Heparin 5,000 UNITS/ML VIAL 5000 UNITS SC ×3 (02:05→18:08)
[2020-07-24] MEDS: VANCOMYCIN 1,250 MG in Normal Saline 250 ML 167 MG IVPB (06:35)
[2020-07-24 07:26] LABS: Anion Gap 7.9 mmol/L (3-11); BUN 18 mg/dL (7-18); CO2 24.1 mmol/L (21.0-32.0); CREATININE 0.73 mg/dL (0.70-1.30); Calcium 8.5 mg/dL (8.5-10.1); Calculated LDL 45 mg/dL (<100); Chloride 106 mmol/L (98-107); Cholesterol 92 mg/dL (<200); Glucose 179 mg/dL (74-106); HDL Cholesterol 29 mg/dL (40-60); Magnesium 1.5 mg/dL (1.8-2.4); Potassium 4.1 mmol/L (3.5-5.1); Sodium 138 mmol/L (136-145); Triglyceride 92 mg/dL (<150)
[2020-07-24 07:32] LABS: Absolute Basophil Count 0.05 10^3/uL (0.0-0.2); Absolute Eosinophil Count 0.44 10^3/uL (0.0-0.7); Absolute Lymphocyte Count 1.83 10^3/uL (1.2-3.4); Absolute Monocyte Count 0.94 10^3/uL (0.1-0.8); Absolute Neutrophil Count 6.64 10^3/uL (1.2-6.7); Basophils % 0.5; Eosinophils % 4.4; HCT 33.8 % (40.0-50.0); HGB 11.7 g/dL (13.5-17.5); Lymphocytes % 18.3; MCH 29.8 pg (27.0-33.0); MCHC 34.6 % (32.0-36.0); MCV 86.2 fL (80-95); MPV 9.4 fL (8.0-11.0); Monocytes % 9.4; Neutrophils % 66.4; Nucleated RBC 0 %; Platelet Count 256 10^3/uL (130-400); RBC 3.92 10^6/uL (4.36-5.78); RDW 12.1 % (11.8-14.1); RDW-SD 38.4 fL
[2020-07-24 07:37] LABS: C-Reactive Protein 15.62 mg/dL (0.0-0.3)
--- NOTE | 2020-07-24 08:00 | DI.US_ITS ---
APPROVED REPORT EXAM: Comprehensive 2D, Doppler, and color-flow Echocardiogram Patient Location: In-Patient Room/Bed: [address] Recording Monitor: Yumiko Acosta RDCS (AE) Indications: Bacteremia Other Information Study Quality: Adequate Conclusion Normal left ventricular wall thickness and chamber size. Estimated ejection fraction is 40 to 45%. The inferior and posterior guzman are hypocontractile. Findings are similar to prior echocardiogram f rom 2019. LV function has improved compared to 2017 Normal right ventricular size and function Both atria are normal in size Minimally sclerotic aortic valve, without stenosis or regurgitation Structurally normal mitral, tricuspid, and pulmonic valves Trace mitral and tricuspid regurgitation No valvular vegetations identified Wall motion Left Ventricle The left ventricle is normal size. Left ventricular systolic function is mildly decreased. There is n ormal left ventricular wall thickness. Inferior and posterior guzman are hypokinetic There is no ventr icular septal defect visualized. LVEF is 40 to 45% Right Ventricle The right ventricle is normal size. The right ventricular systolic function is normal. The RVSP is 17 .1 mmHg. Atria The left atrium size is normal. The right atrium size is normal. The interatrial septum is intact wit h no evidence for an atrial septal defect. Aortic Valve The Aortic valve is minimally sclerotic. Aortic valve is trileaflet. There is no aortic valvular sten osis. No aortic regurgitation is present. Mitral Valve The mitral valve is normal in structure. No evidence of mitral valve stenosis. Trace mitral regurgita tion. Tricuspid Valve The tricuspid valve is normal in structure. There is no tricuspid valve stenosis. Trace tricuspid reg urgitation. Pulmonic Valve The pulmonary valve is normal in structure. There is no pulmonic valvular stenosis. There is no pulmo mary valvular regurgitation. Great Vessels The aortic root is normal in size. The ascending aorta is normal in size. Aortic arch is normal in ca liber. IVC is normal in size and collapses >50% with inspiration. Pericardium There is no pericardial effusion. 2D Dimensions IVSD d PLAX 1.02 cm M: 0.6-1.2 LV Vol A2C d MOD 106.4 mL LVPW d PLAX 1.02 cm M: 0.6 - 1.2 LV Vol A4C d MOD 102.7 mL LVID d PLAX 4.62 cm M: 4.2 - 5.8 LA vol/ BSA A2C s A-L 29.6 mL/m2 LVDs 3.55 cm M: 2.5 - 4.0 LA vol/ BSA A4C s A-L 32.0 mL/m2 Ao Root d 2.67 cm M: 3.1 - 3.7 LA Vol/ BSA Biplane s A-L 31.6 mL/m2 RA Area A4C 20.65 cm2 LA Area A4C s MOD 23.99 cm2 RA Vol/ BSA A4C s A-L 29.9 mL/m2 LA Area A2C s MOD 22.48 cm2 Ao Asc Diam d 3.14 cm M: 2.6 - 3.4 LV EF A4C MOD 42.2 % LV EF Teichholz 45.7 % LV EF A2C MOD 43.3 % LVEF (Nix's) 42.11 % M: 52 - 72 LV EF Biplane MOD 42.1 % LV Volume 77.47 mL M: 62 - 150 SV 45.61 mL LV Volume Index 33.39 mL/m2 M: 34 - 74 SV Index 19.64 mL/m2 LV Vol Biplane MOD 108.3 mL FS 22.65 % M-Mode TAPSE 2.35 cm (M/F) >1.7 LV Diastology MV E' medial 0.067 (>0.07 m/s) E/A Ratio 1.1 LV E/e MED 10.70 (<14) MV E Vmax 0.72 (0.4-1.3 m/s) MV E' lateral 0.104 (>0.1 m/s) MV A Vmax 0.65 (0.4-1.3 m/s) LV E/e LAT 6.95 (<14) MV E/A Ratio 1.08 MV E/E' medial 10.70 MV E/E' lateral 6.97 Aortic Valve LVOT Area 3.41 cm2 AoV Area Vmax 2.42 cm2 LVOT Vmax 0.92 m/s AoV Area/ BSA (Vmax) 1.04 cm2/m2 LVOT Mean Antony. 0.60 m/s MARY ELLEN Mean Antony. 2.09 cm2 LVOT Peak Grad 3.4 mmHg MARY ELLEN Mean Antony. Index 0.90 cm2/m2 LVOT Mean Grad 1.7 mmHg LVOT VTI 0.184 m LVOT Diam s 2.05 cm AoV Vmax 1.30 m/s Velocity Ratio 0.70 AoV Mean Antony. 0.98 m/s AoV Peak Grad 6.8 mmHg LVOT SV 62.65 mL AoV Mean Grad 4.2 mmHg AoV VTI 0.244 m AoV Area VTI 2.57 cm2 AoV Area/ BSA (VTI) 1.11 cm/m2 Mitral Valve MV DT 200 (160-240 msec) MV PHT 58 msec MV Area PHT 3.79 cm2 Pulmonary Valve PV Vmax 0.90 (0.5-1.5 m/s) RVOT Peak Gr. 2.23 mmHg PV Peak Grad 3.2 mmHg RVOT Mean Gr. 1.10 mmHg PV Mean Grad 1.7 mmHg RVOT VTI 0.146 m PV VTI 0.162 m RVOT Vmax 0.75 m/s Tricuspid Valve TR Peak Grad 14.0 mmHg TR Vmax 1.88 m/s RA Pressure 3.00 mmHg RVSP (TR) 17.1 mmHg
--- NOTE | 2020-07-24 08:00 | DI.MRI_ITS ---
EXAM: MR LOWER EXTREMITY RT WO/W CLINICAL HISTORY: suspected osteomyelitis R foot; diabetic foot ulce. TECHNIQUE: Multiplanar multisequence MRI was performed. COMPARISON: No exams were available for comparison FINDINGS: The study is limited due to significant patient motion artifact. There is minimal marrow edema seen in the head of the 2nd metatarsal and the base of the proximal phalanx of the 2nd toe. Signal is oth erwise within normal limits. Mild edema is seen in the soft tissues of the plantar surface of the fo ot in the region of the heads of the 2nd and 3rd metatarsals. No focal fluid collection is seen to s uggest an abscess. There is a defect seen on the skin surface beneath the head of the 2nd metatarsal consistent with the patient's ulcer. IMPRESSION: 1. Skin defect beneath the head of the 2nd metatarsal with associated subcutaneous edema consistent w ith the patient's ulcer. 2. No evidence of an abscess. 3. Minimal marrow edema in the head of the 2nd metatarsal and the base of the proximal phalanx of the 2nd toe. This may be reactive. Osteomyelitis cannot be definitely excluded. 4. Findings were discussed with the patient's physician on the date of the examination. DATA REPOSITORY:
[2020-07-24 08:08] VITALS: BP 129/84; PULSE 75; RESP 19; TEMP 36.2; O2SAT 97
[2020-07-24] MEDS: Insulin Aspart 300 UNITS/3 ML PEN SC (08:11)
[2020-07-24] MEDS: Clopidogrel 75 MG TAB PO (08:12)
[2020-07-24] MEDS: Magnesium Oxide 400 MG TAB PO (08:12)
[2020-07-24] MEDS: Metoprolol CR 50 MG TABCR 150 MG PO (08:12)
[2020-07-24] MEDS: metFORMIN 500 MG TAB 1000 MG PO ×2 (08:12→16:29)
[2020-07-24] MEDS: Pantoprazole 40 MG TABCR PO (08:13)
[2020-07-24] MEDS: Lisinopril 5 MG TAB PO (08:13)
[2020-07-24] MEDS: Aspirin 81 MG CHEW PO (08:13)
[2020-07-24] MEDS: Gadoterate meglumine 20 ML VIAL IVP (11:24)
[2020-07-24] MEDS: MAGNESIUM SULFATE 4 GM/100 ML BAG IVPB (12:13)
[2020-07-24] MEDS: CIPROFLOXACIN 400 MG/200 ML BAG 200 MG IVPB ×2 (12:13→23:36)
[2020-07-24 12:19] VITALS: BP 139/81; PULSE 81; RESP 20; TEMP 36.4; O2SAT 97
[2020-07-24 15:30] VITALS: BP 136/55; PULSE 75; RESP 19; TEMP 36.8; O2SAT 97
[2020-07-24 15:31] LABS: Vancomycin, Trough 13.5 ug/mL (10.0-20.0)
--- NOTE | 2020-07-24 16:25 | W.PM.PROGNOT ---
Date of Service Date of service: 07/24/20 Time of Service: 16:25 Assessment and Plan Assessment and plan (1) Sepsis: Status: Acute Assessment and plan: Due to RLE diabetic foot ulcer with abscess (drained yesterday by Dr Valencia) with GPC bacteremia. Echo without evidence of endocarditis (TTE). Repeat blood cultures are pending. Continue empiric vancomycin, cipro/flagyl. (2) Diabetic foot infection: Status: Acute Assessment and plan: as above (3) Type 2 diabetes mellitus with retinopathy, with long-term current use of insulin: Status: Chronic Assessment and plan: I am decreasing his regular insulin in half for tonight and tomorrow morning as he will be NPO after midnight. Qualifiers: Diabetic retinopathy severity: with unspecified retinopathy severity Diabetes mellitus macular edema: macular edema presence unspecified Laterality: unspecified laterality Qualified Code(s): E11.319 - Type 2 diabetes mellitus with unspecified diabetic retinopathy without macular edema; Z79.4 - medical terminologist (current) use of insulin (4) Chronic systolic CHF (congestive heart failure): Status: Chronic Assessment and plan: EF 45%, improved from prior. Clinically euvolemic. Limit IVF intraoperatively, if possible. (5) ASCVD (arteriosclerotic cardiovascular disease): Status: Chronic Assessment and plan: No evidence for ACS on this admission. NSTEMI with HFrEF 07/11/2017 s/p MADONNA to mLAD on 07/14/2017 at [facility] [place]. Given the fact that the patient's EF has improved, I think he is optimized for procedure tomorrow. (6) DVT prophylaxis: Status: Acute Assessment and plan: Hold heparin SC after tonight's dose. (7) Discharge planning issues: Status: Acute Subjective Subjective Interval history since last seen: Mr Tang states that he is feeling ok. His right leg is breading machine tender. He denies dizziness, chest pain, shortness of breath, nausea. Case discussed with Dr Valencia, who is planning to take the patient to the OR tomorrow morning. Exam Narrative Exam Narrative: General: Pleasant obese male, comfortable in bed HEENT: EOMI, MMM Heart: RRR, no m/r/g Lungs: CTAB Abdomen: soft, nontender, nondistended Extremities: RLE - foot dressed, c/d/i; L foot - no lesions. No edema/clubbing/cyanosis. Objective Objective Clinical Data: Abnormal lab results 07/24/20 07/24/20 Range/Units 06:30 06:30 RBC 3.92 L (4.36-5.78) 10^6/uL Hgb 11.7 L (13.5-17.5) g/dL Hct 33.8 L (40.0-50.0) % Absolute Monocytes 0.94 H (0.1-0.8) 10^3/uL Glucose 179 H (74-106) mg/dL Magnesium 1.5 L (1.8-2.4) mg/dL C-Reactive Protein 15.62 H (0.0-0.3) mg/dL HDL Cholesterol 29 L (40-60) mg/dL Vital Signs Temperature 36.8 C 07/24/20 15:30 Temperature Source Tympanic 07/24/20 15:30 Pulse 75 07/24/20 15:30 Pulse Rhythm Regular 07/24/20 12:10 Respiratory Rate 19 07/24/20 15:30 Respiratory Effort Non-Labored 07/24/20 12:10 Respiratory Depth Normal 07/24/20 12:10 Respiratory Pattern Normal 07/24/20 12:10 Blood Pressure 136/55 L 07/24/20 15:30 Blood Pressure Position Sitting 07/22/20 22:55 Pulse Oximetry 97 07/24/20 15:30 Oxygen Delivery Method Room Air 07/24/20 15:30 Oxygen Flow Rate 0 07/24/20 15:30 Pain Level 0 07/24/20 15:30 Intake & Output 07/23/20 07/24/20 07/24/20 23:59 11:59 23:59 Intake Total 1450 / 2840 860 / 860 Output Total 650 / 1550 1300 / 1300 Balance 800 / 1290 -440 / -440 Weight 112.2 kg Intake: IV 770 / 1920 420 / 420 Oral 680 / 920 440 / 440 Output: Urine 650 / 1550 1300 / 1300 Other: Urine Color Light Peyton Yellow Urine Appearance Clear Clear Clear Urine Odor None Normal Stool Size Small Large Stool Characteristics Liquid Liquid Voiding Methods Toilet Urinal Laboratory Results WBC 10.00 10^3/uL (4.4-10.8) 07/24/20 06:30 RBC 3.92 10^6/uL (4.36-5.78) L 07/24/20 06:30 Hgb 11.7 g/dL (13.5-17.5) L 07/24/20 06:30 Hct 33.8 % (40.0-50.0) L 07/24/20 06:30 MCV 86.2 fL (80-95) 07/24/20 06:30 MCH 29.8 pg (27.0-33.0) 07/24/20 06:30 MCHC 34.6 % (32.0-36.0) 07/24/20 06:30 RDW 12.1 % (11.8-14.1) 07/24/20 06:30 Plt Count 256 10^3/uL (130-400) 07/24/20 06:30 MPV 9.4 fL (8.0-11.0) 07/24/20 06:30 Immature Gran % 1.0 07/24/20 06:30 Neutrophils % 66.4 07/24/20 06:30 Lymphocytes % 18.3 07/24/20 06:30 Monocytes % 9.4 07/24/20 06:30 Eosinophils % 4.4 07/24/20 06:30 Basophils % 0.5 07/24/20 06:30 Nucleated RBC % 0 % 07/24/20 06:30 Absolute Neutrophils 6.64 10^3/uL (1.2-6.7) 07/24/20 06:30 Absolute Lymphocytes 1.83 10^3/uL (1.2-3.4) 07/24/20 06:30 Absolute Monocytes 0.94 10^3/uL (0.1-0.8) H 07/24/20 06:30 Absolute Eosinophils 0.44 10^3/uL (0.0-0.7) 07/24/20 06:30 Absolute Basophils 0.05 10^3/uL (0.0-0.2) 07/24/20 06:30 ESR 100 mm/hr (1-20) H 07/22/20 23:13 PT 11.9 sec (9.3-11.0) H 07/22/20 23:13 INR 1.2 (0.9-1.1) H 07/22/20 23:13 APTT 38.9 sec (21.0-31.4) H 07/22/20 23:13 VBG Lactate 1.0 mmol/L (0.6-1.4) 07/22/20 23:13 Sodium 138 mmol/L (136-145) 07/24/20 06:30 Potassium 4.1 mmol/L (3.5-5.1) 07/24/20 06:30 Chloride 106 mmol/L (98-107) 07/24/20 06:30 Carbon Dioxide 24.1 mmol/L (21.0-32.0) 07/24/20 06:30 Anion Gap 7.9 mmol/L (3-11) 07/24/20 06:30 BUN 18 mg/dL (7-18) 07/24/20 06:30 Creatinine 0.73 mg/dL (0.70-1.30) 07/24/20 06:30 Estimated GFR/1.73 m2 >= 60.00 (mL/min/1.73m2) 07/24/20 06:30 Glucose 179 mg/dL (74-106) H 07/24/20 06:30 Calcium 8.5 mg/dL (8.5-10.1) 07/24/20 06:30 Magnesium 1.5 mg/dL (1.8-2.4) L 07/24/20 06:30 Total Bilirubin 0.8 mg/dL (0.2-1.0) 07/22/20 23:13 AST 13 U/L (15-37) L 07/22/20 23:13 ALT 16 U/L (16-63) 07/22/20 23:13 Alkaline Phosphatase 110 U/L (46-116) 07/22/20 23:13 C-Reactive Protein 15.62 mg/dL (0.0-0.3) H 07/24/20 06:30 Total Protein 7.3 g/dL (6.4-8.2) 07/22/20 23:13 Albumin 3.0 g/dL (3.4-5.0) L 07/22/20 23:13 Triglycerides 92 mg/dL (<150) 07/24/20 06:30 Total Cholesterol 92 mg/dL (<200) 07/24/20 06:30 LDL Cholesterol, Calc 45 mg/dL (<100) 07/24/20 06:30 HDL Cholesterol 29 mg/dL (40-60) L 07/24/20 06:30 Procalcitonin 0.1 ng/mL 07/22/20 23:13 Vancomycin Trough Cancelled 07/24/20 23:00 COVID-19 PCR Negative (Negative) 07/23/20 00:09 Bravo COVID-19 PCR Not Applicable 07/23/20 00:09 Ref Test Perform Site [place] [facility] lab 07/23/20 00:09 Echo: Normal left ventricular wall thickness and chamber size. Estimated ejection fraction is 40 to 45%. The inferior and posterior guzman are hypocontractile. Findings are similar to prior echocardiogram from 2019. LV function has improved compared to 2017 Normal right ventricular size and function Both atria are normal in size Minimally sclerotic aortic valve, without stenosis or regurgitation Structurally normal mitral, tricuspid, and pulmonic valves Trace mitral and tricuspid regurgitation No valvular vegetations identified MRI RLE w/w/o contrast: 1. Skin defect beneath the head of the 2nd metatarsal with associated subcutaneous edema consistent with the patient's ulcer. 2. No evidence of an abscess. 3. Minimal marrow edema in the head of the 2nd metatarsal and the base of the proximal phalanx of the 2nd toe. This may be reactive. Osteomyelitis cannot be definitely excluded. (per Dr Valencia, it appears that there is not osteomyelitis). 4. Findings were discussed with the patient's physician on the date of the examination.
[2020-07-24] MEDS: VANCOMYCIN 1,250 MG in Normal Saline 250 ML 166.6666 MG IVPB ×2 (16:28→23:36)
--- NOTE | 2020-07-24 17:43 | PGE_ITS ---
Date of Service Date of service: 07/24/20 Time of Service: 17:44 Subjective Subjective Patient reports: no new complaints and feels better Exam Narrative Exam Narrative: Patient is resting comfortably in bed. He does indicate that he is feeling a little better since his admission with no foot pain. He denies shortness of breath or chest pain. Peripheral pulses are manually palpable at the ankle 2 out of 4 bilaterally. Feet are warm to the touch. He has good capillary return to all toes. Pedal hair is appreciated. There is an ulcer under the right second metatarsal head with ongoing yellowish-green purulence coming from the wound with erythema surrounding the wound with cellulitis extending dorsally through the second intermetatarsal space between the toes and extending proximally to about midway down the metatarsals. This has not significantly improved. Muscle groups of 5 out of 5 bilaterally Skeletal exam reveals contractures of the lesser toes. The wound is located under the right second metatarsal head. An MRI was completed with and without contrast. The study is considered negative for osteomyelitis of the second metatarsal phalangeal joint but there was significant motion during the study and the reading is considered soft. I did discuss the images with Dr. Cleveland of radiology. Neurologically he has decreased sensation (diabetic neuropathy) in both feet as I am able to manipulate this wound with minimal discomfort. Purulence is expressed through the plantar wound with palpation of the foot. Lab work was reviewed with his WBCs normalizing to 10.0, CRP 15.62. Microbiology identifies group C streptococcal infection both from his wound and blood specimen. 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 Potential risk and complications of surgery were discussed with Ganesh including the potential need for serial debridements, ongoing infection and loss of tissue. All of his questions have been answered. Informed consent has been obtained. Objective Objective Clinical Data: Abnormal lab results 07/24/20 07/24/20 Range/Units 06:30 06:30 RBC 3.92 L (4.36-5.78) 10^6/uL Hgb 11.7 L (13.5-17.5) g/dL Hct 33.8 L (40.0-50.0) % Absolute Monocytes 0.94 H (0.1-0.8) 10^3/uL Glucose 179 H (74-106) mg/dL Magnesium 1.5 L (1.8-2.4) mg/dL C-Reactive Protein 15.62 H (0.0-0.3) mg/dL HDL Cholesterol 29 L (40-60) mg/dL Vital Signs Temperature 36.8 C 07/24/20 15:30 Temperature Source Tympanic 07/24/20 15:30 Pulse 75 07/24/20 15:30 Pulse Rhythm Regular 07/24/20 12:10 Respiratory Rate 19 07/24/20 15:30 Respiratory Effort Non-Labored 07/24/20 12:10 Respiratory Depth Normal 07/24/20 12:10 Respiratory Pattern Normal 07/24/20 12:10 Blood Pressure 136/55 L 07/24/20 15:30 Blood Pressure Position Sitting 07/22/20 22:55 Pulse Oximetry 97 07/24/20 15:30 Oxygen Delivery Method Room Air 07/24/20 15:30 Oxygen Flow Rate 0 07/24/20 15:30 Pain Level 0 07/24/20 15:30 Intake & Output 07/23/20 07/24/20 07/24/20 18:59 06:59 18:59 Intake Total 1470 / 2560 1090 / 2560 340 / 340 Output Total 900 / 2100 1200 / 2100 900 / 900 Balance 570 / 460 -110 / 460 -560 / -560 Weight 113.9 kg 112.2 kg Intake: IV 750 / 1440 690 / 1440 100 / 100 Oral 720 / 1120 400 / 1120 240 / 240 Output: Urine 900 / 2100 1200 / 2100 900 / 900 Other: Urine Color Yellow Yellow Urine Appearance Clear Clear Clear Urine Odor Normal Stool Size Small Large Stool Characteristics Liquid Liquid Voiding Methods Urinal Urinal Urinal Laboratory Results WBC 10.00 10^3/uL (4.4-10.8) 07/24/20 06:30 RBC 3.92 10^6/uL (4.36-5.78) L 07/24/20 06:30 Hgb 11.7 g/dL (13.5-17.5) L 07/24/20 06:30 Hct 33.8 % (40.0-50.0) L 07/24/20 06:30 MCV 86.2 fL (80-95) 07/24/20 06:30 MCH 29.8 pg (27.0-33.0) 07/24/20 06:30 MCHC 34.6 % (32.0-36.0) 07/24/20 06:30 RDW 12.1 % (11.8-14.1) 07/24/20 06:30 Plt Count 256 10^3/uL (130-400) 07/24/20 06:30 MPV 9.4 fL (8.0-11.0) 07/24/20 06:30 Immature Gran % 1.0 07/24/20 06:30 Neutrophils % 66.4 07/24/20 06:30 Lymphocytes % 18.3 07/24/20 06:30 Monocytes % 9.4 07/24/20 06:30 Eosinophils % 4.4 07/24/20 06:30 Basophils % 0.5 07/24/20 06:30 Nucleated RBC % 0 % 07/24/20 06:30 Absolute Neutrophils 6.64 10^3/uL (1.2-6.7) 07/24/20 06:30 Absolute Lymphocytes 1.83 10^3/uL (1.2-3.4) 07/24/20 06:30 Absolute Monocytes 0.94 10^3/uL (0.1-0.8) H 07/24/20 06:30 Absolute Eosinophils 0.44 10^3/uL (0.0-0.7) 07/24/20 06:30 Absolute Basophils 0.05 10^3/uL (0.0-0.2) 07/24/20 06:30 ESR 100 mm/hr (1-20) H 07/22/20 23:13 PT 11.9 sec (9.3-11.0) H 07/22/20 23:13 INR 1.2 (0.9-1.1) H 07/22/20 23:13 APTT 38.9 sec (21.0-31.4) H 07/22/20 23:13 VBG Lactate 1.0 mmol/L (0.6-1.4) 07/22/20 23:13 Sodium 138 mmol/L (136-145) 07/24/20 06:30 Potassium 4.1 mmol/L (3.5-5.1) 07/24/20 06:30 Chloride 106 mmol/L (98-107) 07/24/20 06:30 Carbon Dioxide 24.1 mmol/L (21.0-32.0) 07/24/20 06:30 Anion Gap 7.9 mmol/L (3-11) 07/24/20 06:30 BUN 18 mg/dL (7-18) 07/24/20 06:30 Creatinine 0.73 mg/dL (0.70-1.30) 07/24/20 06:30 Estimated GFR/1.73 m2 >= 60.00 (mL/min/1.73m2) 07/24/20 06:30 Glucose 179 mg/dL (74-106) H 07/24/20 06:30 Calcium 8.5 mg/dL (8.5-10.1) 07/24/20 06:30 Magnesium 1.5 mg/dL (1.8-2.4) L 07/24/20 06:30 Total Bilirubin 0.8 mg/dL (0.2-1.0) 07/22/20 23:13 AST 13 U/L (15-37) L 07/22/20 23:13 ALT 16 U/L (16-63) 07/22/20 23:13 Alkaline Phosphatase 110 U/L (46-116) 07/22/20 23:13 C-Reactive Protein 15.62 mg/dL (0.0-0.3) H 07/24/20 06:30 Total Protein 7.3 g/dL (6.4-8.2) 07/22/20 23:13 Albumin 3.0 g/dL (3.4-5.0) L 07/22/20 23:13 Triglycerides 92 mg/dL (<150) 07/24/20 06:30 Total Cholesterol 92 mg/dL (<200) 07/24/20 06:30 LDL Cholesterol, Calc 45 mg/dL (<100) 07/24/20 06:30 HDL Cholesterol 29 mg/dL (40-60) L 07/24/20 06:30 Procalcitonin 0.1 ng/mL 07/22/20 23:13 Vancomycin Trough Cancelled 07/24/20 23:00 COVID-19 PCR Negative (Negative) 07/23/20 00:09 Addiarypaul COVID-19 PCR Not Applicable 07/23/20 00:[address] [facility] [facility] 07/[facility] 00:09
--- NOTE | 2020-07-24 18:03 | PDOC.CMPRO ---
- If Service Date Differs Date of service: 07/24/20 Time of Service: 18:03 Care Management Progress Note S/O: Ganesh was sitting up in bed on his phone when CM met with him. He reported that he was doing well today. Per report, he will be going to the OR tomorrow for debridement and washout of the wound on his foot. CM discussed the potential need for HH RN upon discharge for his wound care. CM will continue to follow. A: Ganesh is a 54 year old male admitted to [facility] on 07/23/20 with a Diabetic foot infection. P: Edward will go to the OR tomorrow with Dr. Trejo. Anticipate he will return home when medically cleared. He will likely have new HH RN for wound care, which he is agreeable to. CM will continue to follow.
[2020-07-24 19:13] VITALS: BP 109/71; PULSE 81; RESP 18; TEMP 36.8; O2SAT 95
[2020-07-24] MEDS: Normal Saline Flush 10 ML SYR IVP ×2 (19:39→23:35)
[2020-07-24] MEDS: Acetaminophen 500 MG TAB 1000 MG PO (20:49)
[2020-07-25] MEDS: metroNIDAZOLE 500 MG/100 ML BAG 100 MG IVPB ×2 (02:16→08:45)
[2020-07-25 03:25] VITALS: BP 122/80; PULSE 79; RESP 17; TEMP 36.2; O2SAT 96
[2020-07-25 07:03] LABS: Abs Immature Grans 0.07 10^3/uL (0.0-0.06); Absolute Basophil Count 0.05 10^3/uL (0.0-0.2); Absolute Eosinophil Count 0.51 10^3/uL (0.0-0.7); Absolute Lymphocyte Count 1.71 10^3/uL (1.2-3.4); Absolute Monocyte Count 0.74 10^3/uL (0.1-0.8); Absolute Neutrophil Count 6.27 10^3/uL (1.2-6.7); Basophils % 0.5; Eosinophils % 5.5; HCT 35.5 % (40.0-50.0); Immature Grans % 0.7; Lymphocytes % 18.3; MCH 29.7 pg (27.0-33.0); MCHC 33.8 % (32.0-36.0); MCV 87.9 fL (80-95); MPV 8.9 fL (8.0-11.0); Monocytes % 7.9; Neutrophils % 67.1; Nucleated RBC 0 %; Platelet Count 278 10^3/uL (130-400); RBC 4.04 10^6/uL (4.36-5.78); RDW 12.1 % (11.8-14.1); RDW-SD 39.1 fL; WBC 9.35 10^3/uL (4.4-10.8)
[2020-07-25 07:09] LABS: BUN 13 mg/dL (7-18); C-Reactive Protein 12.58 mg/dL (0.0-0.3); CREATININE 0.88 mg/dL (0.70-1.30); Calcium 8.8 mg/dL (8.5-10.1); Chloride 103 mmol/L (98-107); Glucose 217 mg/dL (74-106); Magnesium 1.5 mg/dL (1.8-2.4); Potassium 4.3 mmol/L (3.5-5.1); Sodium 135 mmol/L (136-145)
[2020-07-25 07:10] VITALS: BP 124/82; PULSE 83; RESP 16; TEMP 35.9; O2SAT 97
[2020-07-25] MEDS: Lactated Ringers 1,000 ML 50 ML IV (07:33)
[2020-07-25] MEDS: Bupivacaine 0.5% Pres-Free 30 ML VIAL (07:44)
[2020-07-25] MEDS: Lidocaine 1% Multi-Dose 50 ML VIAL (07:44)
[2020-07-25 08:07] LABS: Procalcitonin 0.1 ng/mL
--- NOTE | 2020-07-25 08:31 | ROE_ITS ---
Date of service: 07/25/20 Time of Service: 08:32 Operative Note Operative Note DATE OF PROCEDURE: 07/25/20 PRE-OP DIAGNOSIS: Mal perforans diabetic ulcer right foot POST-OP DIAGNOSIS: same PROCEDURE: debridement wound, right foot SURGEON: Charles Valencia ANESTHESIA: MAC ESTIMATED BLOOD LOSS: 5 PATHOLOGY: none sent COMPLICATIONS: None Patient was transported to: no change Patient's condition: stable Implants: 1/4 kayce drain, 1/4 packing tape Indications: 54-year-old male, poorly controlled diabetic, with ulceration under the right second metatarsal head with cellulitis extending dorsally into the second intermetatarsal space. Wound and blood cultures are positive for group C Streptococcus. He is being brought to the OR for debridement of the wound. Findings: Sinus tract was appreciated from the plantar aspect of the foot just plantar and lateral to the second metatarsal head extending dorsally into the second intermetatarsal space. Creamy yellowish pus noted. Procedure Description: Ganesh was brought to the operating room placed in the supine position with the right foot was prepped and draped in usual sterile podiatric fashion. Anesthesia was achieved through monitored anesthesia and a local block of the right ankle utilizing 17 cc of a 50: 50 mixture, 1% lidocaine plain, 0.5% Marcaine plain. A [place] elevator was inserted into the wound plantarly and went all the way to the deep surface of the dorsal skin between the metatarsal heads 2 and 3. Purulence was noted coming from the wound. With a rounger wound was debrided at its plantar surface opening the wound to healthy margins. Debridement was performed resecting devitalized appearing tissue as needed. The wound was further opened plantarly with a #15 scalpel paralleling the underlying freer elevator. This incision was then deepened in controlled depth fashion. Significantly improved visualization was appreciated. There was some devitalized tissue and fat noted along the sinus tract which was removed with blunt dissection and rongeur debridement. A curette was then inserted and the sinus tract was curettaged until nothing but healthy appearing tissue was appreciated. The wound measured 4.8 cm deep from plantar to dorsal, 1.2 cm in width and 2.8 cm in length. The [place] elevator was then thrust upwards from the plantar wound and a stab incision was made dorsally over the skin so as to afford an exit point dorsally. A hemostat was inserted from plantar to dorsal and 1/4 inch Kayce drain inserted. Copious irrigation was now performed through a 60 cc syringe and an 18-gauge needle utilizing 300 cc of normal sa line, inspection of the wound failed to reveal any additional necrotic tissue and no further purulence was identified. The plantar wound was packed with quarter inch iodoform Nu Gauze and covered with 4 x 4's Kerlix rolls x2Elaine Andersen left the OR with vital signs stable vascular status intact and will remain in-house for bedrest and IV antibiotics.
[2020-07-25] MEDS: Metoprolol CR 50 MG TABCR 150 MG PO (08:43)
[2020-07-25] MEDS: Magnesium Oxide 400 MG TAB PO (08:44)
[2020-07-25] MEDS: Pantoprazole 40 MG TABCR PO (08:44)
[2020-07-25] MEDS: Lisinopril 5 MG TAB PO (08:44)
[2020-07-25] MEDS: metFORMIN 500 MG TAB 1000 MG PO ×2 (08:44→16:21)
[2020-07-25] MEDS: VANCOMYCIN 1,250 MG in Normal Saline 250 ML 166.6666 MG IVPB (08:44)
[2020-07-25] MEDS: Aspirin 81 MG CHEW PO (08:44)
[2020-07-25] MEDS: Insulin Aspart 300 UNITS/3 ML PEN SC ×3 (08:56→17:10)
[2020-07-25] MEDS: MAGNESIUM SULFATE 4 GM/100 ML BAG IVPB (11:01)
[2020-07-25 11:06] VITALS: BP 130/86; PULSE 84; RESP 20; TEMP 36.6; O2SAT 96
--- NOTE | 2020-07-25 11:09 | PDOC.CMPRO ---
- If Service Date Differs Date of service: 07/25/20 Time of Service: 11:09 Care Management Progress Note S/O: Ganesh remains acute, repeat blood cultures are pending, he will need two weeks of IV abx from the time of negative cultures. Frequency and abx coverage to be determined. Edward does have medicaid and depending on frequency could have home abx infusion with home health vs outpatient infusion room. If neither of those work he will transition to [facility] to compete his course of IV abx. A: Ganesh is a 54 year old male admitted to [facility] on 07/23/20 with a Diabetic foot infection, positive blood cultures and now status post debridement and wash out. P: Edward will return home when medically ready, he agrees to RN for wound care and assessment. CM will continue to follow and coordinate discharge disposition and services.
[2020-07-25] MEDS: CIPROFLOXACIN 400 MG/200 ML BAG 200 MG IVPB (12:16)
[2020-07-25 15:19] LABS: Vancomycin, Trough 15.6 ug/mL (10.0-20.0)
--- NOTE | 2020-07-25 15:58 | PGE_ITS ---
Date of Service Date of service: 07/25/20 Time of Service: 15:58 Assessment and Plan Assessment and plan (1) Sepsis: Status: Acute Assessment and plan: Due to RLE diabetic foot ulcer with polymicrobial abscess (drained by Dr Valencia on 07/23/2020) with Group C strep bacteremia. Group C strep is also one of the organisms growing in the wound among with staph. Repeat blood cultures from 07/24/2020 show NGTD. No vegetations on echo. End date for antibiotics should be 08/07/2020. Which antibiotics will be determined by the final wound culture. Continue vancomycin. D/c cipro/flagyl and start cefazolin 2 grams IV Q8 hrs. 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 Clinically euvolemic. Due to cough and slight rales postoperatively, will give one dose of PO lasix now. (5) ASCVD (arteriosclerotic cardiovascular disease): Status: Chronic Assessment and plan: No evidence for ACS on this admission. NSTEMI with HFrEF 07/11/2017 s/p MADONNA to mLAD on 07/14/2017 at [facility] [place]. Resume plavix tomorrow if ok with podiatry. (6) DVT prophylaxis: Status: Acute Assessment and plan: Resume sc heparin (7) Discharge planning issues: Status: Acute Assessment and plan: Full code WIll require 2 weeks of IV abx (choice to be determined by culture results). Subjective Subjective Interval history since last seen: S/p debridement of R foot wound by Dr Valencia today without complications. He denies dizziness, chest pain, endorses a dry cough ever since surgery, denies n/v. No RLE pain today. We talked about awaiting wound cultures as well as blood culture results prior to determining how long and which antibiotics to stay on. Exam Narrative Exam Narrative: General: Pleasant obese male, comfortable in bed HEENT: EOMI, MMM Heart: RRR, no m/r/g Lungs: Slight rales at B bases, dry cough Abdomen: soft, nontender, nondistended Extremities: RLE - foot dressed, c/d/i; No edema/clubbing/cyanosis. Objective Objective Clinical Data: Abnormal lab results 07/25/20 07/25/20 Range/Units 06:30 06:30 RBC 4.04 L (4.36-5.78) 10^6/uL Hgb 12.0 L (13.5-17.5) g/dL Hct 35.5 L (40.0-50.0) % Sodium 135 L (136-145) mmol/L Glucose 217 H (74-106) mg/dL Magnesium 1.5 L (1.8-2.4) mg/dL C-Reactive Protein 12.58 H (0.0-0.3) mg/dL Vital Signs Temperature 36.6 C 07/25/20 11:06 Temperature Source Temporal Artery Scan 07/25/20 11:06 Pulse 84 07/25/20 11:06 Pulse Rhythm Regular 07/25/20 09:06 Respiratory Rate 20 07/25/20 11:06 Respiratory Effort Non-Labored 07/25/20 09:06 Respiratory Depth Normal 07/25/20 09:06 Respiratory Pattern Normal 07/25/20 09:06 Blood Pressure 130/86 07/25/20 11:06 Blood Pressure Position Sitting 07/22/20 22:55 Pulse Oximetry 96 07/25/20 11:06 Oxygen Delivery Method Room Air 07/25/20 11:06 Oxygen Flow Rate 0 07/25/20 11:06 Pain Level 0 07/25/20 07:10 Intake & Output 07/24/20 07/25/20 07/25/20 23:59 11:59 23:59 Intake Total 830 / 1690 1240 / 1730 490 / 1730 Output Total 750 / 2050 200 / 1125 925 / 1125 Balance 80 / -360 1040 / 605 -435 / 605 Weight 112.3 kg Intake: IV 650 / 1070 1000 / 1000 Oral 180 / 620 240 / 730 490 / 730 Output: Urine 750 / 2050 200 / 1125 925 / 1125 Other: Urine Color Yellow Light Peyton Light Peyton Urine Appearance Clear Clear Clear Urine Odor Normal Strong Comment Void x1 in the bedside commode. Mixed with stool. Stool Size Large Moderate Stool Characteristics Liquid Soft Formed Brown Voiding Methods Urinal Urinal Urinal Laboratory Results WBC 9.35 10^3/uL (4.4-10.8) 07/25/20 06:30 RBC 4.04 10^6/uL (4.36-5.78) L 07/25/20 06:30 Hgb 12.0 g/dL (13.5-17.5) L 07/25/20 06:30 Hct 35.5 % (40.0-50.0) L 07/25/20 06:30 MCV 87.9 fL (80-95) 07/25/20 06:30 MCH 29.7 pg (27.0-33.0) 07/25/20 06:30 MCHC 33.8 % (32.0-36.0) 07/25/20 06:30 RDW 12.1 % (11.8-14.1) 07/25/20 06:30 Plt Count 278 10^3/uL (130-400) 07/25/20 06:30 MPV 8.9 fL (8.0-11.0) 07/25/20 06:30 Immature Gran % 0.7 07/25/20 06:30 Neutrophils % 67.1 07/25/20 06:30 Lymphocytes % 18.3 07/25/20 06:30 Monocytes % 7.9 07/25/20 06:30 Eosinophils % 5.5 07/25/20 06:30 Basophils % 0.5 07/25/20 06:30 Nucleated RBC % 0 % 07/25/20 06:30 Absolute Neutrophils 6.27 10^3/uL (1.2-6.7) 07/25/20 06:30 Absolute Lymphocytes 1.71 10^3/uL (1.2-3.4) 07/25/20 06:30 Absolute Monocytes 0.74 10^3/uL (0.1-0.8) 07/25/20 06:30 Absolute Eosinophils 0.51 10^3/uL (0.0-0.7) 09/04/20 06:30 Absolute Basophils 0.05 10^3/uL (0.0-0.2) 07/25/20 06:30 ESR 100 mm/hr (1-20) H 07/22/20 23:13 PT 11.9 sec (9.3-11.0) H 07/22/20 23:13 INR 1.2 (0.9-1.1) H 07/22/20 23:13 APTT 38.9 sec (21.0-31.4) H 07/22/20 23:13 VBG Lactate 1.0 mmol/L (0.6-1.4) 07/22/20 23:13 Sodium 135 mmol/L (136-145) L 07/25/20 06:30 Potassium 4.3 mmol/L (3.5-5.1) 07/25/20 06:30 Chloride 103 mmol/L (98-107) 07/25/20 06:30 Carbon Dioxide 24.0 mmol/L (21.0-32.0) 07/25/20 06:30 Anion Gap 8.0 mmol/L (3-11) 07/25/20 06:30 BUN 13 mg/dL (7-18) 07/25/20 06:30 Creatinine 0.88 mg/dL (0.70-1.30) 07/25/20 06:30 Estimated GFR/1.73 m2 >= 60.00 (mL/min/1.73m2) 07/25/20 06:30 Glucose 217 mg/dL (74-106) H 07/25/20 06:30 Calcium 8.8 mg/dL (8.5-10.1) 07/25/20 06:30 Magnesium 1.5 mg/dL (1.8-2.4) L 07/25/20 06:30 Total Bilirubin 0.8 mg/dL (0.2-1.0) 07/22/20 23:13 AST 13 U/L (15-37) L 07/22/20 23:13 ALT 16 U/L (16-63) 07/22/20 23:13 Alkaline Phosphatase 110 U/L (46-116) 07/22/20 23:13 C-Reactive Protein 12.58 mg/dL (0.0-0.3) H 07/25/20 06:30 Total Protein 7.3 g/dL (6.4-8.2) 07/22/20 23:13 Albumin 3.0 g/dL (3.4-5.0) L 07/22/20 23:13 Triglycerides 92 mg/dL (<150) 07/24/20 06:30 Total Cholesterol 92 mg/dL (<200) 07/24/20 06:30 LDL Cholesterol, Calc 45 mg/dL (<100) 07/24/20 06:30 HDL Cholesterol 29 mg/dL (40-60) L 07/24/20 06:30 Procalcitonin 0.1 ng/mL 07/25/20 06:30 Vancomycin Trough 15.6 ug/mL (10.0-20.0) 07/25/20 15:03 COVID-19 PCR Negative (Negative) 07/23/20 00:09 Nasopharyn COVID-19 PCR Not Applicable 07/23/20 00:09 Ref Test Perform Site [facility] lab 07/23/20 00:09
[2020-07-25 16:05] VITALS: BP 123/82; PULSE 82; RESP 18; TEMP 36.5; O2SAT 96
[2020-07-25] MEDS: Furosemide 20 MG TAB PO (16:20)
[2020-07-25] MEDS: Heparin 5,000 UNITS/ML VIAL 5000 UNITS SC (18:00)
[2020-07-25] MEDS: ceFAZolin 2 GM/50 ML BAG IVPB (18:00)
[2020-07-25 19:30] VITALS: BP 126/82; PULSE 85; RESP 18; TEMP 36.9; O2SAT 95
[2020-07-25] MEDS: Magnesium Chloride 64 MG TABCR PO (19:53)
[2020-07-25] MEDS: Dextrose 50%-Water 25 GM/50 ML SYR IVP (21:45)
[2020-07-25 23:25] VITALS: BP 124/85; PULSE 84; RESP 17; TEMP 36.6; O2SAT 96
[2020-07-25] MEDS: Normal Saline Flush 10 ML SYR IVP (23:33)
[2020-07-26] VITALS (7 sets, daily range): BP systolic 106–132; BP diastolic 65–95; PULSE 63–85; RESP 17–75; TEMP 36.1–36.6; O2SAT 95–98
[2020-07-26] MEDS: ceFAZolin 2 GM/50 ML BAG IVPB ×2 (01:43→10:45)
[2020-07-26] MEDS: Normal Saline Flush 10 ML SYR IVP ×3 (01:43→12:41)
[2020-07-26] MEDS: Heparin 5,000 UNITS/ML VIAL 5000 UNITS SC ×3 (01:44→17:32)
[2020-07-26 07:48] LABS: Abs Immature Grans 0.11 10^3/uL (0.0-0.06); Absolute Basophil Count 0.07 10^3/uL (0.0-0.2); Absolute Eosinophil Count 0.62 10^3/uL (0.0-0.7); Absolute Lymphocyte Count 2.13 10^3/uL (1.2-3.4); Absolute Monocyte Count 0.74 10^3/uL (0.1-0.8); Absolute Neutrophil Count 5.26 10^3/uL (1.2-6.7); Basophils % 0.8; Eosinophils % 6.9; HCT 34.9 % (40.0-50.0); HGB 11.8 g/dL (13.5-17.5); Immature Grans % 1.2; Lymphocytes % 23.9; MCH 29.3 pg (27.0-33.0); MCHC 33.8 % (32.0-36.0); MCV 86.6 fL (80-95); Monocytes % 8.3; Neutrophils % 58.9; Nucleated RBC 0 %; Platelet Count 300 10^3/uL (130-400); RBC 4.03 10^6/uL (4.36-5.78); RDW 11.9 % (11.8-14.1); RDW-SD 38.4 fL; WBC 8.93 10^3/uL (4.4-10.8)
[2020-07-26 08:01] LABS: Anion Gap 5.8 mmol/L (3-11); BUN 10 mg/dL (7-18); C-Reactive Protein 9.36 mg/dL (0.0-0.3); CO2 26.2 mmol/L (21.0-32.0); CREATININE 0.75 mg/dL (0.70-1.30); Calcium 8.7 mg/dL (8.5-10.1); Chloride 102 mmol/L (98-107); Glucose 225 mg/dL (74-106); Magnesium 1.4 mg/dL (1.8-2.4); Potassium 4.2 mmol/L (3.5-5.1); Sodium 134 mmol/L (136-145)
[2020-07-26] MEDS: metFORMIN 500 MG TAB 1000 MG PO ×2 (08:12→16:56)
[2020-07-26] MEDS: Pantoprazole 40 MG TABCR PO (08:12)
[2020-07-26] MEDS: Metoprolol CR 50 MG TABCR 150 MG PO (08:12)
[2020-07-26] MEDS: Magnesium Chloride 64 MG TABCR PO ×2 (08:12→19:51)
[2020-07-26] MEDS: Aspirin 81 MG CHEW PO (08:12)
[2020-07-26] MEDS: Lisinopril 5 MG TAB PO (08:12)
[2020-07-26] MEDS: Insulin Aspart 300 UNITS/3 ML PEN SC ×2 (08:13→12:42)
--- NOTE | 2020-07-26 09:38 | PDOC.CMPRO ---
- If Service Date Differs Date of service: 07/26/20 Time of Service: 09:38 Care Management Progress Note S/O:Edward remains acute today, is consulting and treating RLE diabetic ulcer. Edward will need a total of two weeks of IV abx from time of negitive blood cultures which were done on 07/24/2020 and negative thus far. Abx to be determined based on sensitives. Abx regimen is determined, CM can set up home vs SB1 for completion of the two weeks. Anticipate end date to be August 06. CM reviewed chart, discharge plan and goals of care reviewed at morning rounds. CM to continue to follow for discharge planning and disposition needs. A:Edward is a 54 year old male admitted with Diabetic ulcer, positive blood cultures and long history of uncontrolled diabetes. P: Edward will be discharged home when medically ready, awaiting final abx schedule to determine SB1 vs Home infusions. Edward will need new home health services upon discharge for nursing, and wound care. CM to continue to assess and coordinate discharge needs and disposition.
--- NOTE | 2020-07-26 10:10 | RESPIRATORY ---
RT spoke with patient concerning his medical history of VIVIANE. Patient stated he does have VIVIANE but doesn't use a machine nor us anything for it. RT asked is he used oxygen and patient stated he tried it but it dried his nose out.
--- NOTE | 2020-07-26 11:35 | W.PM.PROGNOT ---
Date of Service Date of service: 07/26/20 Time of Service: 11:35 Subjective Subjective Patient reports: no new complaints Interval history since last seen: He is resting comfortably in bed. He had a reported low sugar last night but this morning is in the upper 200s. The hospitalist is aware. Otherwise he is doing well. Exam Narrative Exam Narrative: Morning labs are reviewed, CRP is trending downward now at 9.36. WBCs are normalized at 8.93, RBCs 4.03, hemoglobin 11.8, hematocrit 34.9 Vitals are stable with a BP 119/80 pulse 75 respiration 18 O2 sat at room air is 96% Dressings on his right foot are clean and dry. The dressings are removed. A little bit of bloody drainage is seen on the deeper layer of dressings as expected. The packing and [place] drain are intact. The packing is removed from the plantar aspect of the right foot. No purulence is identified and the wound appears to be cleaning up nicely. No signs of erythema observed plantarly or dorsally at this time. Deep palpation of the foot fails to elicit any purulent material with just a little bit of bloody drainage being expressed. Microbiology reveals group C Streptococcus and MSSA organisms. His current antibiotics include ceftriaxone 2 g every 24. Impressions: 24 hours status post debridement wound right foot as above doing well Plan: The packing was removed the wound was irrigated and repacked with normal saline gauze dressings. The [place] drain will be removed tomorrow by nursing during dressing change. Ganesh will require 2 weeks of IV antibiotics (timed by his last blood culture) due to his positive blood cultures which should also adequately cover the foot wound. Ganesh understands that this wound is going to heal by secondary intention and will take upwards of couple months to resolve. He is also aware of the need for better diabetic control and hygiene as well as Diabetic shoe gear. He is to remain in house for ongoing bedrest, IV antibiotics and wound care. I did discuss the case with the hospitalist. I plan on returning for rounds on Tuesday but am available if needed over the weekend. Objective Objective Clinical Data: Abnormal lab results 07/26/20 07/26/20 Range/Units 07:00 07:00 RBC 4.03 L (4.36-5.78) 10^6/uL Hgb 11.8 L (13.5-17.5) g/dL Hct 34.9 L (40.0-50.0) % Sodium 134 L (136-145) mmol/L Glucose 225 H (74-106) mg/dL Magnesium 1.4 L (1.8-2.4) mg/dL C-Reactive Protein 9.36 H (0.0-0.3) mg/dL Vital Signs Temperature 36.1 C L 07/26/20 07:43 Temperature Source Temporal Artery Scan 07/26/20 07:43 Pulse 75 07/26/20 07:43 Pulse Rhythm Regular 07/26/20 08:26 Respiratory Rate 18 07/26/20 07:43 Respiratory Effort Non-Labored 07/26/20 08:26 Respiratory Depth Normal 07/26/20 08:26 Respiratory Pattern Normal 07/26/20 08:26 Blood Pressure 119/80 07/26/20 07:43 Blood Pressure Position Sitting 07/22/20 22:55 Pulse Oximetry 96 07/26/20 07:43 Oxygen Delivery Method Room Air 07/26/20 07:43 Oxygen Flow Rate 0 07/26/20 07:43 Pain Level 0 07/26/20 07:43 Intake & Output 07/25/20 07/26/20 07/26/20 18:59 06:59 18:59 Intake Total 1480 / 2770 790 / 2770 500 / 500 Output Total 925 / 2575 1100 / 2575 1650 / 1650 Balance 555 / 195 -310 / 195 -1150 / -1150 Weight 113.2 kg Intake: IV 750 / 1300 550 / 1300 Oral 730 / 1470 240 / 1470 500 / 500 Output: Urine 925 / 2575 1100 / 2575 1650 / 1650 Other: Urine Color Light Peyton Yellow Yellow Urine Appearance Clear Clear Clear Urine Odor Strong Normal None Comment Void x1 in the bedside commode. Mixed with stool. Stool Size Moderate Moderate Stool Characteristics Soft Soft Formed Brown Voiding Methods Urinal Urinal Urinal Laboratory Results WBC 8.93 10^3/uL (4.4-10.8) 07/26/20 07:00 RBC 4.03 10^6/uL (4.36-5.78) L 07/26/20 07:00 Hgb 11.8 g/dL (13.5-17.5) L 07/26/20 07:00 Hct 34.9 % (40.0-50.0) L 07/26/20 07:00 MCV 86.6 fL (80-95) 07/26/20 07:00 MCH 29.3 pg (27.0-33.0) 07/26/20 07:00 MCHC 33.8 % (32.0-36.0) 07/26/20 07:00 RDW 11.9 % (11.8-14.1) 07/26/20 07:00 Plt Count 300 10^3/uL (130-400) 07/26/20 07:00 MPV 9.0 fL (8.0-11.0) 07/26/20 07:00 Immature Gran % 1.2 07/26/20 07:00 Neutrophils % 58.9 07/26/20 07:00 Lymphocytes % 23.9 07/26/20 07:00 Monocytes % 8.3 07/26/20 07:00 Eosinophils % 6.9 07/26/20 07:00 Basophils % 0.8 07/26/20 07:00 Nucleated RBC % 0 % 07/26/20 07:00 Absolute Neutrophils 5.26 10^3/uL (1.2-6.7) 07/26/20 07:00 Absolute Lymphocytes 2.13 10^3/uL (1.2-3.4) 07/26/20 07:00 Absolute Monocytes 0.74 10^3/uL (0.1-0.8) 07/26/20 07:00 Absolute Eosinophils 0.62 10^3/uL (0.0-0.7) 07/26/20 07:00 Absolute Basophils 0.07 10^3/uL (0.0-0.2) 07/26/20 07:00 ESR 100 mm/hr (1-20) H 07/22/20 23:13 PT 11.9 sec (9.3-11.0) H 07/22/20 23:13 INR 1.2 (0.9-1.1) H 07/22/20 23:13 APTT 38.9 sec (21.0-31.4) H 07/22/20 23:13 VBG Lactate 1.0 mmol/L (0.6-1.4) 07/22/20 23:13 Sodium 134 mmol/L (136-145) L 07/26/20 07:00 Potassium 4.2 mmol/L (3.5-5.1) 07/26/20 07:00 Chloride 102 mmol/L (98-107) 07/26/20 07:00 Carbon Dioxide 26.2 mmol/L (21.0-32.0) 07/26/20 07:00 Anion Gap 5.8 mmol/L (3-11) 07/26/20 07:00 BUN 10 mg/dL (7-18) 07/26/20 07:00 Creatinine 0.75 mg/dL (0.70-1.30) 07/26/20 07:00 Estimated GFR/1.73 m2 >= 60.00 (mL/min/1.73m2) 07/26/20 07:00 Glucose 225 mg/dL (74-106) H 07/26/20 07:00 Calcium 8.7 mg/dL (8.5-10.1) 07/26/20 07:00 Magnesium 1.4 mg/dL (1.8-2.4) L 07/26/20 07:00 Total Bilirubin 0.8 mg/dL (0.2-1.0) 07/22/20 23:13 AST 13 U/L (15-37) L 07/22/20 23:13 ALT 16 U/L (16-63) 07/22/20 23:13 Alkaline Phosphatase 110 U/L (46-116) 07/22/20 23:13 C-Reactive Protein 9.36 mg/dL (0.0-0.3) H 07/26/20 07:00 Total Protein 7.3 g/dL (6.4-8.2) 07/22/20 23:13 Albumin 3.0 g/dL (3.4-5.0) L 07/22/20 23:13 Triglycerides 92 mg/dL (<150) 07/24/20 06:30 Total Cholesterol 92 mg/dL (<200) 07/24/20 06:30 LDL Cholesterol, Calc 45 mg/dL (<100) 07/24/20 06:30 HDL Cholesterol 29 mg/dL (40-60) L 07/24/20 06:30 Procalcitonin 0.1 ng/mL 07/25/20 06:30 Vancomycin Trough 15.6 ug/mL (10.0-20.0) 07/25/20 15:03 COVID-19 PCR Negative (Negative) 07/23/20 00:09 Nasopharyn COVID-19 PCR Not Applicable 07/23/20 00:09 Ref Test Perform Site [facility] 07/23/20 00:09
--- NOTE | 2020-07-26 14:17 | PGE_ITS ---
Date of Service Date of service: 07/26/20 Time of Service: 11:11 Assessment and Plan Assessment and plan (1) Sepsis: Status: Acute Assessment and plan: Blood cx growing group C strep. Foot wound growing same and staph aureus. Clinically resolved. Changed antibiotic coverage to Rocephin 2 gram IV daily. Repeat blood cxs NGTD. Will need PICC placement for IV antibiotics; 2 weeks duration with end date of 08/07/2020. Echocardiogram with no vegetations noted. Qualifiers: Sepsis acute organ dysfunction status: unspecified Sepsis type: Streptococcus, unspecified Qualified Code(s): A40.9 - Streptococcal sepsis, unspecified (2) Diabetic foot infection: Status: Acute Assessment and plan: Cont wound care per Podiatry. Planning on removing drain tomorrow. (3) Type 2 diabetes mellitus with retinopathy, with long-term current use of insulin: Status: Chronic Assessment and plan: Cont BID Humulin R U-500 BID with SS correction dosing. Cont Metformin Had been up to 283 yesterday then 57 at 20:34 last PM Rebound to 264 after interventions with glucose. Monitor at current insulin dosing. 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 Cont LIsinopril and Metoprolol (5) Chronic HFrEF (heart failure with reduced ejection fraction): Status: Chronic Assessment and plan: Cont BB, ACEI and ASA (6) Discharge planning issues: Status: Acute Assessment and plan: Home with and daily Rocephin vs swingbed. Subjective Subjective Patient reports: no new complaints Interval history since last seen: No pain in R foot No F/C Appetite is OK Exam Const General: cooperative Nutritional Appearance: obese Orientation: alert Resp Effort & Inspection: normal respiratory effort Auscultation: clear to auscultation bilaterally and diminished lung sounds Cardio Rate: regular rate Rhythm: regular rhythm Heart Sounds: S1 normal and S2 normal Extrem General: no clubbing, cyanosis or edema Ankle/foot/toe images: 1. [place] drain in place that extends through the foot. No erythema or purulent drainage. Objective Objective Clinical Data: Abnormal lab results 07/26/20 07/26/20 Range/Units 07:00 07:00 RBC 4.03 L (4.36-5.78) 10^6/uL Hgb 11.8 L (13.5-17.5) g/dL Hct 34.9 L (40.0-50.0) % Sodium 134 L (136-145) mmol/L Glucose 225 H (74-106) mg/dL Magnesium 1.4 L (1.8-2.4) mg/dL C-Reactive Protein 9.36 H (0.0-0.3) mg/dL Vital Signs Temperature 36.2 C L 07/26/20 11:45 Temperature Source Temporal Artery Scan 07/26/20 11:45 Pulse 75 07/26/20 11:45 Pulse Rhythm Regular 07/26/20 08:26 Respiratory Rate 75 H 07/26/20 11:45 Respiratory Effort Non-Labored 07/26/20 08:26 Respiratory Depth Normal 07/26/20 08:26 Respiratory Pattern Normal 07/26/20 08:26 Blood Pressure 132/86 07/26/20 11:45 Blood Pressure Position Sitting 07/22/20 22:55 Pulse Oximetry 95 07/26/20 11:45 Oxygen Delivery Method Room Air 07/26/20 11:45 Oxygen Flow Rate 0 07/26/20 11:45 Pain Level 0 07/26/20 11:45 Intake & Output 07/25/20 07/26/20 07/26/20 23:59 11:59 23:59 Intake Total 1030 / 2270 1170 / 1170 Output Total 1425 / 1625 2250 / 2250 Balance -395 / 645 -1080 / -1080 Weight 113.2 kg Intake: IV 300 / 1300 550 / 550 Oral 730 / 970 620 / 620 Output: Urine 1425 / 1625 2250 / 2250 Other: Urine Color Yellow Yellow Urine Appearance Clear Clear Urine Odor Normal None Comment Void x1 in the bedside commode. Mixed with stool. Stool Size Moderate Moderate Stool Characteristics Soft Soft Formed Brown Voiding Methods Urinal Urinal Laboratory Results WBC 8.93 10^3/uL (4.4-10.8) 07/26/20 07:00 RBC 4.03 10^6/uL (4.36-5.78) L 07/26/20 07:00 Hgb 11.8 g/dL (13.5-17.5) L 07/26/20 07:00 Hct 34.9 % (40.0-50.0) L 07/26/20 07:00 MCV 86.6 fL (80-95) 07/26/20 07:00 MCH 29.3 pg (27.0-33.0) 07/26/20 07:00 MCHC 33.8 % (32.0-36.0) 07/26/20 07:00 RDW 11.9 % (11.8-14.1) 07/26/20 07:00 Plt Count 300 10^3/uL (130-400) 07/26/20 07:00 MPV 9.0 fL (8.0-11.0) 07/26/20 07:00 Immature Gran % 1.2 07/26/20 07:00 Neutrophils % 58.9 07/26/20 07:00 Lymphocytes % 23.9 07/26/20 07:00 Monocytes % 8.3 07/26/20 07:00 Eosinophils % 6.9 07/26/20 07:00 Basophils % 0.8 07/26/20 07:00 Nucleated RBC % 0 % 07/26/20 07:00 Absolute Neutrophils 5.26 10^3/uL (1.2-6.7) 07/26/20 07:00 Absolute Lymphocytes 2.13 10^3/uL (1.2-3.4) 07/26/20 07:00 Absolute Monocytes 0.74 10^3/uL (0.1-0.8) 07/26/20 07:00 Absolute Eosinophils 0.62 10^3/uL (0.0-0.7) 07/26/20 07:00 Absolute Basophils 0.07 10^3/uL (0.0-0.2) 07/26/20 07:00 ESR 100 mm/hr (1-20) H 07/22/20 23:13 PT 11.9 sec (9.3-11.0) H 07/22/20 23:13 INR 1.2 (0.9-1.1) H 07/22/20 23:13 APTT 38.9 sec (21.0-31.4) H 07/22/20 23:13 VBG Lactate 1.0 mmol/L (0.6-1.4) 07/22/20 23:13 Sodium 134 mmol/L (136-145) L 07/26/20 07:00 Potassium 4.2 mmol/L (3.5-5.1) 07/26/20 07:00 Chloride 102 mmol/L (98-107) 07/26/20 07:00 Carbon Dioxide 26.2 mmol/L (21.0-32.0) 07/26/20 07:00 Anion Gap 5.8 mmol/L (3-11) 07/26/20 07:00 BUN 10 mg/dL (7-18) 07/26/20 07:00 Creatinine 0.75 mg/dL (0.70-1.30) 07/26/20 07:00 Estimated GFR/1.73 m2 >= 60.00 (mL/min/1.73m2) 07/26/20 07:00 Glucose 225 mg/dL (74-106) H 07/26/20 07:00 Calcium 8.7 mg/dL (8.5-10.1) 07/26/20 07:00 Magnesium 1.4 mg/dL (1.8-2.4) L 07/26/20 07:00 Total Bilirubin 0.8 mg/dL (0.2-1.0) 07/22/20 23:13 AST 13 U/L (15-37) L 07/22/20 23:13 ALT 16 U/L (16-63) 07/22/20 23:13 Alkaline Phosphatase 110 U/L (46-116) 07/22/20 23:13 C-Reactive Protein 9.36 mg/dL (0.0-0.3) H 07/26/20 07:00 Total Protein 7.3 g/dL (6.4-8.2) 07/22/20 23:13 Albumin 3.0 g/dL (3.4-5.0) L 07/22/20 23:13 Triglycerides 92 mg/dL (<150) 07/24/20 06:30 Total Cholesterol 92 mg/dL (<200) 07/24/20 06:30 LDL Cholesterol, Calc 45 mg/dL (<100) 07/24/20 06:30 HDL Cholesterol 29 mg/dL (40-60) L 07/24/20 06:30 Procalcitonin 0.1 ng/mL 07/25/20 06:30 Vancomycin Trough 15.6 ug/mL (10.0-20.0) 07/25/20 15:03 COVID-19 PCR Negative (Negative) 07/23/20 00:09 Nasopharyn COVID-19 PCR Not Applicable 07/23/20 00:09 Ref Test Perform Site [facility] 07/23/20 00:09
[2020-07-26] MEDS: cefTRIAXone 2 GM/50 ML BAG IVPB (17:33)
[2020-07-27] MEDS: Heparin 5,000 UNITS/ML VIAL 5000 UNITS SC ×3 (02:59→17:31)
[2020-07-27 03:00] VITALS: BP 130/82; PULSE 90; RESP 18; TEMP 36.2; O2SAT 95
[2020-07-27 08:03] VITALS: BP 121/81; PULSE 88; RESP 18; TEMP 36.7; O2SAT 98
[2020-07-27 08:07] LABS: Abs Immature Grans 0.12 10^3/uL (0.0-0.06); Absolute Basophil Count 0.06 10^3/uL (0.0-0.2); Absolute Eosinophil Count 0.59 10^3/uL (0.0-0.7); Absolute Lymphocyte Count 1.83 10^3/uL (1.2-3.4); Absolute Monocyte Count 0.55 10^3/uL (0.1-0.8); Absolute Neutrophil Count 4.45 10^3/uL (1.2-6.7); Basophils % 0.8; Eosinophils % 7.8; HCT 37.8 % (40.0-50.0); HGB 12.5 g/dL (13.5-17.5); Immature Grans % 1.6; Lymphocytes % 24.1; MCH 28.9 pg (27.0-33.0); MCHC 33.1 % (32.0-36.0); MCV 87.5 fL (80-95); MPV 8.8 fL (8.0-11.0); Monocytes % 7.2; Neutrophils % 58.5; Nucleated RBC 0 %; Platelet Count 316 10^3/uL (130-400); RBC 4.32 10^6/uL (4.36-5.78); RDW 12.2 % (11.8-14.1); RDW-SD 39.4 fL
[2020-07-27] MEDS: Pantoprazole 40 MG TABCR PO (08:26)
[2020-07-27] MEDS: metFORMIN 500 MG TAB 1000 MG PO ×2 (08:26→17:00)
[2020-07-27] MEDS: Aspirin 81 MG CHEW PO (08:26)
[2020-07-27] MEDS: Magnesium Chloride 64 MG TABCR PO ×2 (08:26→20:01)
[2020-07-27] MEDS: Lisinopril 5 MG TAB PO (08:26)
[2020-07-27] MEDS: Metoprolol CR 50 MG TABCR 150 MG PO (08:27)
[2020-07-27] MEDS: Insulin Aspart 300 UNITS/3 ML PEN SC ×2 (08:27→12:04)
--- NOTE | 2020-07-27 11:37 | CMPROGNOTE_ITS ---
- If Service Date Differs Date of service: 07/27/20 Time of Service: 11:37 Care Management Progress Note S/O:Edward remains acute today, is consulting and treating RLE diabetic ulcer. Edward will need a total of two weeks of IV abx from time of negative blood cultures which were done on 07/24/2020 and negative thus far. Edward has transition to IV Rocephrin once a day. He continues to have wound care. He will stay here until the completion of his abx. 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 Edward will potentially transition to swing bed over the weekend at the latest Tuesday per provider. will seem him on Tuesday. Anticipate end date to be August 06. CM reviewed chart, discharge plan and goals of care reviewed at morning rounds. CM to continue to follow for discharge planning and disposition needs. A:Edward is a 54 year old male admitted with Diabetic ulcer, positive blood cultures and long history of uncontrolled diabetes. P: Edward will transition to swing bed level 1 for IV abx and wound care. Edward javed l need new home health services upon discharge for nursing, and wound care. CM to continue to assess and coordinate discharge needs and disposition. Edward will transport himself home at time of discharge.
[2020-07-27 11:49] VITALS: BP 119/76; PULSE 89; RESP 18; TEMP 36.3; O2SAT 96
--- NOTE | 2020-07-27 15:07 | PGE_ITS ---
Date of Service Date of service: 07/27/20 Time of Service: 15:07 Assessment and Plan Assessment and plan (1) Discharge planning issues: Status: Acute Assessment and plan: Planning to d/c to swing bed status; possibly tomorrow. (2) Diabetic foot infection: Status: Acute Assessment and plan: Wound grew staph aureus and strep Cont rocephin. (3) Type 2 diabetes mellitus with hyperglycemia, with long-term current use of insulin: Status: Chronic Assessment and plan: Wide variations in glucose levels; 71 last PM up to 222 this AM. No symptoms with low normal readings. Cont current insulin and metformin (4) Sepsis: Status: Acute Assessment and plan: Resolved. On Ceftriaxone for 2 weeks. Strep group C grew in blood. Qualifiers: Sepsis acute organ dysfunction status: unspecified Sepsis type: Streptococcus, unspecified Qualified Code(s): A40.9 - Streptococcal sepsis, unspecified Subjective Subjective Patient reports: no new complaints and feels better Interval history since last seen: No F/C, pain. Exam Const General: cooperative and no acute distress Nutritional Appearance: obese Resp Effort & Inspection: normal respiratory effort Auscultation: clear to auscultation bilaterally Cardio Rate: regular rate Rhythm: regular rhythm Heart Sounds: S1 normal and S2 normal Skin Lesions: other (R foot ulcer with bandage in place.) Extrem General: no pedal edema and no calf tenderness Objective Objective Clinical Data: Abnormal lab results 07/27/20 Range/Units 07:25 RBC 4.32 L (4.36-5.78) 10^6/uL Hgb 12.5 L (13.5-17.5) g/dL Hct 37.8 L (40.0-50.0) % Vital Signs Temperature 36.3 C L 07/27/20 11:49 Temperature Source Temporal Artery Scan 07/27/20 11:49 Pulse 89 07/27/20 11:49 Pulse Rhythm Regular 07/27/20 11:31 Respiratory Rate 18 07/27/20 11:49 Respiratory Effort 07/27/20 11:31 Respiratory Depth Normal 07/27/20 11:31 Respiratory Pattern Normal 07/27/20 11:31 Blood Pressure 119/76 07/27/20 11:49 Blood Pressure Position Sitting 07/22/20 22:55 Pulse Oximetry 96 07/27/20 11:49 Oxygen Delivery Method Room Air 07/27/20 11:49 Oxygen Flow Rate 0 07/27/20 11:49 Pain Level 0 07/27/20 11:49 Intake & Output 07/26/20 07/27/20 07/27/20 23:59 11:59 23:59 Intake Total 490 / 1960 390 / 630 240 / 630 Output Total 525 / 2775 1600 / 1600 Balance -35 / -815 -1210 / -970 240 / -970 Weight 113.1 kg Intake: Oral 490 / 1110 390 / 630 240 / 630 Output: Drainage 0 / 0 Right Foot 0 / 0 Urine 525 / 2775 1600 / 1600 Other: Urine Color Pale Yellow Yellow Urine Appearance Clear Clear Urine Odor Normal None Voiding Methods Toilet Toilet Laboratory Results WBC 7.60 10^3/uL (4.4-10.8) 07/27/20 07:25 RBC 4.32 10^6/uL (4.36-5.78) L 07/27/20 07:25 Hgb 12.5 g/dL (13.5-17.5) L 07/27/20 07:25 Hct 37.8 % (40.0-50.0) L 07/27/20 07:25 MCV 87.5 fL (80-95) 07/27/20 07:25 MCH 28.9 pg (27.0-33.0) 07/27/20 07:25 MCHC 33.1 % (32.0-36.0) 07/27/20 07:25 RDW 12.2 % (11.8-14.1) 07/27/20 07:25 Plt Count 316 10^3/uL (130-400) 07/27/20 07:25 MPV 8.8 fL (8.0-11.0) 07/27/20 07:25 Immature Gran % 1.6 07/27/20 07:25 Neutrophils % 58.5 07/27/20 07:25 Lymphocytes % 24.1 07/27/20 07:25 Monocytes % 7.2 07/27/20 07:25 Eosinophils % 7.8 07/27/20 07:25 Basophils % 0.8 07/27/20 07:25 Nucleated RBC % 0 % 07/27/20 07:25 Absolute Neutrophils 4.45 10^3/uL (1.2-6.7) 07/27/20 07:25 Absolute Lymphocytes 1.83 10^3/uL (1.2-3.4) 07/27/20 07:25 Absolute Monocytes 0.55 10^3/uL (0.1-0.8) 07/27/20 07:25 Absolute Eosinophils 0.59 10^3/uL (0.0-0.7) 07/27/20 07:25 Absolute Basophils 0.06 10^3/uL (0.0-0.2) 07/27/20 07:25 ESR 100 mm/hr (1-20) H 07/22/20 23:13 PT 11.9 sec (9.3-11.0) H 07/22/20 23:13 INR 1.2 (0.9-1.1) H 07/22/20 23:13 APTT 38.9 sec (21.0-31.4) H 07/22/20 23:13 VBG Lactate 1.0 mmol/L (0.6-1.4) 07/22/20 23:13 Sodium 134 mmol/L (136-145) L 07/26/20 07:00 Potassium 4.2 mmol/L (3.5-5.1) 07/26/20 07:00 Chloride 102 mmol/L (98-107) 07/26/20 07:00 Carbon Dioxide 26.2 mmol/L (21.0-32.0) 07/26/20 07:00 Anion Gap 5.8 mmol/L (3-11) 07/26/20 07:00 BUN 10 mg/dL (7-18) 07/26/20 07:00 Creatinine 0.75 mg/dL (0.70-1.30) 07/26/20 07:00 Estimated GFR/1.73 m2 >= 60.00 (mL/min/1.73m2) 07/26/20 07:00 Glucose 225 mg/dL (74-106) H 07/26/20 07:00 Calcium 8.7 mg/dL (8.5-10.1) 07/26/20 07:00 Magnesium 1.4 mg/dL (1.8-2.4) L 07/26/20 07:00 Total Bilirubin 0.8 mg/dL (0.2-1.0) 07/22/20 23:13 AST 13 U/L (15-37) L 07/22/20 23:13 ALT 16 U/L (16-63) 07/22/20 23:13 Alkaline Phosphatase 110 U/L (46-116) 07/22/20 23:13 C-Reactive Protein 9.36 mg/dL (0.0-0.3) H 07/26/20 07:00 Total Protein 7.3 g/dL (6.4-8.2) 07/22/20 23:13 Albumin 3.0 g/dL (3.4-5.0) L 07/22/20 23:13 Triglycerides 92 mg/dL (<150) 07/24/20 06:30 Total Cholesterol 92 mg/dL (<200) 07/24/20 06:30 LDL Cholesterol, Calc 45 mg/dL (<100) 07/24/20 06:30 HDL Cholesterol 29 mg/dL (40-60) L 07/24/20 06:30 Procalcitonin 0.1 ng/mL 07/25/20 06:30 Vancomycin Trough 15.6 ug/mL (10.0-20.0) 07/25/20 15:03 COVID-19 PCR Negative (Negative) 07/23/20 00:09 Nasopharyn COVID-19 PCR Not Applicable 07/23/20 00:09 Ref Test Perform Site [facility] lab 07/23/20 00:09
[2020-07-27] MEDS: cefTRIAXone 2 GM/50 ML BAG IVPB (17:30)
[2020-07-27] MEDS: Normal Saline Flush 10 ML SYR IVP (17:31)
[2020-07-27 20:02] VITALS: BP 126/80; PULSE 83; RESP 18; TEMP 36.5; O2SAT 96
[2020-07-27 23:52] VITALS: BP 121/82; PULSE 86; RESP 18; TEMP 36.4; O2SAT 97
[2020-07-28] MEDS: Heparin 5,000 UNITS/ML VIAL 5000 UNITS SC ×2 (02:35→10:11)
[2020-07-28 03:52] VITALS: BP 127/78; PULSE 83; RESP 18; TEMP 36.2; O2SAT 98
[2020-07-28 07:15] VITALS: BP 133/83; PULSE 54; RESP 16; TEMP 35.5; O2SAT 97
[2020-07-28 07:16] LABS: Anion Gap 6.7 mmol/L (3-11); BUN 15 mg/dL (7-18); CO2 26.3 mmol/L (21.0-32.0); CREATININE 0.76 mg/dL (0.70-1.30); Calcium 8.9 mg/dL (8.5-10.1); Chloride 102 mmol/L (98-107); Glucose 174 mg/dL (74-106); Potassium 4.3 mmol/L (3.5-5.1); Sodium 135 mmol/L (136-145)
[2020-07-28 07:20] LABS: Abs Immature Grans 0.21 10^3/uL (0.0-0.06); Absolute Basophil Count 0.07 10^3/uL (0.0-0.2); Absolute Eosinophil Count 0.72 10^3/uL (0.0-0.7); Absolute Lymphocyte Count 2.59 10^3/uL (1.2-3.4); Absolute Monocyte Count 0.54 10^3/uL (0.1-0.8); Absolute Neutrophil Count 4.61 10^3/uL (1.2-6.7); Basophils % 0.8; Eosinophils % 8.2; HCT 38.4 % (40.0-50.0); HGB 12.9 g/dL (13.5-17.5); Immature Grans % 2.4; Lymphocytes % 29.6; MCH 29.7 pg (27.0-33.0); MCHC 33.6 % (32.0-36.0); MCV 88.5 fL (80-95); MPV 8.8 fL (8.0-11.0); Monocytes % 6.2; Neutrophils % 52.8; Nucleated RBC 0 %; Platelet Count 350 10^3/uL (130-400); RBC 4.34 10^6/uL (4.36-5.78); RDW 12.2 % (11.8-14.1); RDW-SD 39.8 fL; WBC 8.74 10^3/uL (4.4-10.8)
[2020-07-28] MEDS: Insulin Aspart 300 UNITS/3 ML PEN SC (08:17)
[2020-07-28] MEDS: Magnesium Chloride 64 MG TABCR PO (08:18)
[2020-07-28] MEDS: Metoprolol CR 50 MG TABCR 150 MG PO (08:18)
[2020-07-28] MEDS: metFORMIN 500 MG TAB 1000 MG PO (08:18)
[2020-07-28] MEDS: Aspirin 81 MG CHEW PO (08:19)
[2020-07-28] MEDS: Lisinopril 5 MG TAB PO (08:19)
[2020-07-28] MEDS: Pantoprazole 40 MG TABCR PO (08:19)
--- NOTE | 2020-07-28 09:38 | PDOC.CMPRO ---
- If Service Date Differs Date of service: 07/28/20 Time of Service: 09:38 Care Management Progress Note S/O:Edward was sitting up in bed when CM met with him. He was pleasant and cooperative. He will transition to SB-1 status today to complete his IVAB regimen. A:Edward is a 54 year old male admitted with Diabetic ulcer, positive blood cultures and long history of uncontrolled diabetes. P: Edward will transition to swing bed level 1 for IV abx and wound care. Edward will need new home health services upon discharge for nursing, and wound care. CM to continue to assess and coordinate discharge needs and disposition. Edward will transport himself home at time of discharge.
[2020-07-28 11:46] VITALS: BP 127/88; PULSE 89; RESP 18; TEMP 36.4; O2SAT 95
--- NOTE | 2020-07-28 13:28 | DSE_ITS ---
Date of service: 07/28/20 Time of Service: 13:28 DS: Diagnosis Discharge Diagnosis (1) Discharge planning issues: Status: Acute (2) Diabetic foot infection: Status: Acute (3) Type 2 diabetes mellitus with hyperglycemia, with long-term current use of insulin: Status: Chronic (4) Sepsis: Status: Acute Discharge Plan Disposition Patient Disposition: [facility] SWING BED LEVEL 2 Condition: Stable Discharge Details Chief Complaint: RashLesion Clinical Impression: Diabetic foot infection Reason For Visit: DIABETIC FOOT INFECTION Admit Date/Time: 07/23/20 10:21 Admit Provider: Keven Friedman Attending Provider: Keven Friedman Primary Care Provider: Camilla Sherman ED Provider: Pantera Booth Home Meds and New Rx's Prescriptions: No Action rosuvastatin [Crestor] 40 mg tablet 40 mg PO HS Qty: 90 RF: 3 triamcinolone acetonide 0.5 % cream 1 applic TP .BID-QID Qty: 15 RF: 0 ammonium lactate 12 % cream 1 applic TP QD-BID PRN (Reason: dry skin) Qty: 140 RF: 3 (DME) lancets Misc See Rx Instructions .ROUTE .MEDSUPPLY Qty: 400 RF: 3 sertraline [Zoloft] 100 mg tablet 200 mg PO DAILY Qty: 180 RF: 3 insulin regular hum U-500 conc 500 unit/mL (3 mL) insulin pen See Rx Instructions SC BID Qty: 6 RF: 3 (DME) pen needle, diabetic 1 EACH needle Miscellaneous TID Qty: 300 RF: 3 nitroglycerin 0.4 mg tablet, sublingual 0.4 mg SL Q5M MDD 3 doses PRN (Reason: chest pain) Qty: 30 RF: 0 (DME) FreeStyle Flako 14 Day Sensor kit See Dose Instructions .ROUTE .MEDSUPPLY Qty: 1 RF: 0 (DME) Blood Glucose Test Strip See Rx Instructions .ROUTE .MEDSUPPLY Qty: 400 RF: 3 pantoprazole 40 mg tablet,delayed release (DR/EC) 40 mg PO QAM Qty: 90 RF: 3 Jardiance 25 mg tablet 25 mg PO DAILY Qty: 90 RF: 3 lisinopril 5 mg tablet 5 mg PO DAILY Qty: 90 RF: 3 metoprolol succinate 100 mg tablet extended release 24 hr 150 mg PO DAILY Qty: 135 RF: 3 aspirin 81 mg tablet,chewable 81 mg PO DAILY Qty: 90 RF: 3 magnesium oxide 400 mg (241.3 mg magnesium) tablet 400 mg PO DAILY Qty: 90 RF: 3 metformin 1,000 mg tablet 1,000 mg PO BID Qty: 180 RF: 3 spironolactone 25 mg tablet 12.5 mg PO DAILY Qty: 45 RF: 3 clopidogrel [Plavix] 75 mg Tablet 75 mg PO DAILY Qty: 30 RF: 0 Discharge Instructions Activity:: Activity as Tolerated Equipment/Supplies:: No Equipment Needed Diet:: Carb Counting DS: Summary Status at Discharge Functional status at discharge: independent ambulation Overall status at discharge: patient is progressing back to baseline Mental Status: mental status grossly normal Speech and Movement: speech and movement normal Mood: congruent mood Affect: normal affect Exam Const General: cooperative and no acute distress Neck Neck: normal visual inspection and full ROM Resp Effort & Inspection: normal respiratory effort Auscultation: clear to auscultation bilaterally Cardio Rate: regular rate Rhythm: regular rhythm Heart Sounds: S1 normal and S2 normal Extrem General: no clubbing, cyanosis or edema Ankle/foot/toe images: 1. R foot ulcer / s/p debridement. Bandage in place. No purulent drainage. 2. Psych Mental Status: mental status grossly normal Speech and Movement: speech and movement normal Mood: congruent mood Affect: normal affect DS: Data Vitals/I&O Vitals and I&O: Vital Signs Temperature 36.4 C L 07/28/20 11:46 Temperature Source Temporal Artery Scan 07/28/20 11:46 Pulse 89 07/28/20 11:46 Pulse Rhythm Regular 07/28/20 10:56 Respiratory Rate 18 07/28/20 11:46 Respiratory Effort Non-Labored 07/28/20 10:56 Respiratory Depth Normal 07/28/20 10:56 Respiratory Pattern Normal 07/28/20 10:56 Blood Pressure 127/88 07/28/20 11:46 Blood Pressure Position Sitting 07/22/20 22:55 Pulse Oximetry 95 07/28/20 11:46 Oxygen Delivery Method Room Air 07/28/20 11:46 Oxygen Flow Rate 0 07/28/20 11:46 Pain Level 0 07/28/20 11:46 Intake & Output 09/06/20 09/07/20 09/07/20 23:59 11:59 23:59 Intake Total 540 / 930 Output Total 900 / 2500 1100 / 1100 Balance -360 / -1570 -1100 / -1100 Weight 112.9 kg Intake: Oral 540 / 930 Output: Urine 900 / 2500 1100 / 1100 Other: Urine Color Yellow Yellow Urine Appearance Clear Clear Urine Odor None Voiding Methods Toilet Urinal Data Completed and Pending Labs on day of discharge: Labs from last 24 hours 07/28/20 07/28/20 06:55 06:55 WBC 8.74 RBC 4.34 L Hgb 12.9 L Hct 38.4 L MCV 88.5 MCH 29.7 MCHC 33.6 RDW 12.2 Plt Count 350 MPV 8.8 Immature Gran % 2.4 Neutrophils % 52.8 Lymphocytes % 29.6 Monocytes % 6.2 Eosinophils % 8.2 Basophils % 0.8 Nucleated RBC % 0 Absolute Neutrophils 4.61 Absolute Lymphocytes 2.59 Absolute Monocytes 0.54 Absolute Eosinophils 0.72 H Absolute Basophils 0.07 Sodium 135 L Potassium 4.3 Chloride 102 Carbon Dioxide 26.3 Anion Gap 6.7 BUN 15 Creatinine 0.76 Estimated GFR/1.73 m2 >= 60.00 Glucose 174 H Calcium 8.9 Preliminary micro results at discharge 07/24/20 06:37 Blood Culture - Preliminary Blood NO GROWTH 96 HOURS 07/24/20 06:30 Blood Culture - Preliminary Blood NO GROWTH 96 HOURS [facility] Medical History Adult BMI > 30 (Chronic) ASCVD (arteriosclerotic cardiovascular disease) (Chronic 07/28/17) NSTEMI with HFrEF 07/11/2017 s/p MADONNA to mLAD on 07/14/[address] [facility] [place] Callus of foot (Chronic) I advised to purchase pumice stone and gentle smooth out the surface of the callus. Chronic HFrEF (heart failure with reduced ejection fraction) (Chronic 07/20/18) LVEF 30-35% on index presentation improved to 50% on f/u echo Conductive hearing loss (Chronic 07/06/13) Depression (Chronic 11/25/11) Diabetic foot ulcer (Acute) Elevated ferritin level (Chronic 10/20/17) Erectile dysfunction (Chronic 07/06/13) Essential hypertension (Chronic 07/06/13) Gastroesophageal reflux disease (Chronic) Hyperlipidemia (Chronic 07/06/13) 11/2017 labwork: 10-year ASCVD risk = ~6.1% --> continue current high intensity statin therapy (h/o ASCVD) Hyperuricemia (Inactive) Hypomagnesemia (Acute) Microalbuminuria (Chronic) Noncompliance with medication regimen (Chronic 07/06/13) Nonproliferative diabetic retinopathy (Chronic) NSTEMI (non-ST elevated myocardial infarction) (Inactive 07/11/17) 06/2017: S/p MADONNA to mLAD at [facility] [place] Will require DAPT for a minimum of 1 year Obstructive sleep apnea, adult (Chronic 10/31/14) Severe, C-pap, Dr. Almeida continue on CPAP therapy with mask of choice,heated humidification and ramp. pressure should be set at 12 cm/H2o,alternatively auto CPAP 8-14 cm/H2O can be used. (sleep study note cameron Pulmonary hypertension (Chronic 07/14/17) 07/14/17 mild pulm hypertension, mild pulm capillary wedge pressure, elevated left ventricular end diastolic pressure, one vessel CAD-LAD w/ stent oins ertion Restless leg syndrome (Chronic 10/31/14) Per Sleep Lab Dr. Bui Sensorineural hearing loss, bilateral (Chronic 11/24/17) Tubular adenoma of colon (Inactive 10/18/14) Type 2 diabetes mellitus with retinopathy, with long-term current use of insulin (Chronic 10/27/17) Surgical History Cholecystectomy (Resolved) Colonoscopy - IV Sedation (Resolved 10/14/14) tubular adenoma Dr. Blancas S/P coronary artery stent placement (Inactive) s/p MADONNA to LAD mid 2; Dr. 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
--- NOTE | 2020-07-28 13:28 | NUR.NOTE ---
pt being discharged from acute care to swingbed status for IV ABX.Nursing Note:
== END 2020-07-28 14:38 | disposition swing bed (61) | DRG 854 ==
LOC: ER 23:59 → MS 07-23 00:37
PROVIDERS: Family Medicine; Internal Medicine; Podiatrist; Admitting Provider General Practice; Emergency Provider Emergency Medicine; PCP Nurse Practitioner Family; Visit Provider General Practice
PROC: 0JBQ0ZZ Excision of Right Foot Subcutaneous Tissue and Fascia, Open Approach (ICD-10-PCS; CPT 11042; principal; 2020-07-25 07:30)
DX: A40.8 Other streptococcal sepsis (principal); L03.115 Cellulitis of right lower limb; L97.518 Non-pressure chronic ulcer of other part of right foot with other specified severity; I50.22 Chronic systolic (congestive) heart failure; E11.628 Type 2 diabetes mellitus with other skin complications; B95.4 Other streptococcus as the cause of diseases classified elsewhere; B95.61 Methicillin susceptible Staphylococcus aureus infection as the cause of diseases classified elsewhere; E11.621 Type 2 diabetes mellitus with foot ulcer; E11.65 Type 2 diabetes mellitus with hyperglycemia; E11.42 Type 2 diabetes mellitus with diabetic polyneuropathy; Z79.4 Long term (current) use of insulin; I25.10 Atherosclerotic heart disease of native coronary artery without angina pectoris; I25.2 Old myocardial infarction; Z95.5 Presence of coronary angioplasty implant and graft; F32.9 Major depressive disorder, single episode, unspecified; I11.0 Hypertensive heart disease with heart failure; K21.9 Gastro-esophageal reflux disease without esophagitis; E78.5 Hyperlipidemia, unspecified; E11.3299 Type 2 diabetes mellitus with mild nonproliferative diabetic retinopathy without macular edema, unspecified eye; G47.33 Obstructive sleep apnea (adult) (pediatric); G25.81 Restless legs syndrome; H90.3 Sensorineural hearing loss, bilateral
CPT/HCPCS: 97597; 11042; 36415; 80048; 80053; 80061; 84145; 85027; 85652; 87040; 87077; 96365; 99222; 99232; 99233; 99239; 99285; NC; U0003; 73630; 73720; 80202; 83605; 83735; 85025; 85610; 85730; 86140; 87070; 87186; 87205; 93306; 99284; G0378; J0690; J0744; J1644; J3370; J3475

== ENCOUNTER 2020-07-28 13:41 | Inpatient (IN) | payer MEDICAID, SELFPAY ==
--- NOTE | 2020-07-28 14:02 | HPE_ITS ---
Assessment and Plan Assessment and plan (1) Diabetic foot ulcer: Status: Acute Assessment and plan: S/P debridement. Podiatry managing. No current local infection. Now on rocephin 2 gram IV daily. Qualifiers: Diabetic foot ulcer location: other Diabetes mellitus type: type 2 Laterality: right Non-pressure ulcer stage: unspecified non-pressure ulcer stage Qualified Code(s): E11.621 - Type 2 diabetes mellitus with foot ulcer; L97.519 - Non-pressure chronic ulcer of other part of right foot with unspecified severity (2) Type 2 diabetes mellitus with hyperglycemia, with long-term current use of insulin: Status: Chronic Assessment and plan: Cont basal/bolus insulin Adjusting for AM low readings. Consistent carb diet. (3) Essential hypertension: Status: Chronic Assessment and plan: Controlled. Cont Lisinopril and Metoprolol (4) Bacteremia: Status: Acute Assessment and plan: Group C strep bacteremia Completing a 14 day course of antibiotics: Rocephin 2 gram IV daily. Echocardiogram was negative for valvular vegetations. History of Present Illness History of Present Illness Chief Complaint: Bacteremia and diabetic foot ulcer Narrative: 54 male diabetic. Reports months of right foot ulcer, being managed by podiatry. Reports pain and swelling over past 2-3 days. Started on Clindamycin as outpatient. Presented due to persistent and worsening symptoms. In ER purulent ulcer noted. Film neg for osteo, ESR 100, CRP 16, WBC 14K. Blood cx obtained and started on Vanco, Cipro and Flagyl (note PCN allergy). Podiatry consulted. He underwent ulcer/wound debridement with mary drain placement. Group C streptococcus and MSSA organisms growing in wound culture. The Group C strep also grew in blood cultures. Antibiotic coverage changed to Rocephine 2 gram IV daily and will complete a 14 day course of antibiotics. Wound s/p debridement is w/o erythema or drainage. He currently c/o no F/C, pain. Appetite is good w/o N/V/abd pain. Review of Systems All systems reviewed & are unremarkable except as noted in HPI and below PFSH Medical History Adult BMI > 30 (Chronic) ASCVD (arteriosclerotic cardiovascular disease) (Chronic 07/28/17) NSTEMI with HFrEF 07/11/2017 [place]NA [place] [facility] [place] of foot (Chronic) I advised to purchase pumice stone and gentle smooth out the surface of the callus. Chronic HFrEF (heart failure with reduced ejection fraction) (Chronic 07/20/18) LVEF 30-35% on index presentation improved to 50% on f/u echo Conductive hearing loss (Chronic 07/06/13) Depression (Chronic 11/25/11) Diabetic foot ulcer (Acute) Elevated ferritin level (Chronic 10/20/17) Erectile dysfunction (Chronic 07/06/13) Essential hypertension (Chronic 07/06/13) Gastroesophageal reflux disease (Chronic) Hyperlipidemia (Chronic 07/06/13) 11/2017 labwork: 10-year ASCVD risk = ~6.1% --> continue current high intensity statin therapy (h/o ASCVD) Hyperuricemia (Inactive) Hypomagnesemia (Acute) Microalbuminuria (Chronic) Noncompliance with medication regimen (Chronic 07/06/13) Nonproliferative diabetic retinopathy (Chronic) NSTEMI (non-ST elevated myocardial infarction) (Inactive 07/11/17) 06/2017: [place] [facility] [place] require DAP[place] for a minimum of 1 year Obstructive sleep apnea, adult (Chronic 10/31/14) Severe, C-pap, Dr. Almeida continue on CPAP therapy with mask of choice,heated humidification and ramp. pressure should be set at 12 cm/H2o,alternatively auto CPAP 8-14 cm/H2O can be used. (sleep study note cameron Pulmonary hypertension (Chronic 07/14/17) 07/14/17 mild pulm hypertension, mild pulm capillary wedge pressure, elevated left ventricular end diastolic pressure, one vessel CAD-LAD w/ stent oinsertion Restless leg syndrome (Chronic 10/31/14) Per Sleep Lab Dr. Bui Sensorineural hearing loss, bilateral (Chronic 11/24/17) Tubular adenoma of colon (Inactive 10/18/14) Type 2 diabetes mellitus with retinopathy, with long-term current use of insulin (Chronic 10/27/17) Surgical History Cholecystectomy (Resolved) Colonoscopy - IV Sedation (Resolved 10/14/14) tubular adenoma Dr. Blancas S/P coronary artery stent placement (Inactive) s/p MADONNA to LAD mid 2; Dr. 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 Do you feel safe at home: Yes Do you feel safe in your relationship?: Yes Meds Home Medications and Allergies Home Medications Medication Instructions Recorded Confirmed Type pen needle, diabetic #300 03/02/18 07/21/20 History nitroglycerin 0.4 mg sublingual 0.4 mg SL Q5M PRN #30 tab-cap MDD 01/08/19 07/22/20 Rx tablet 3 doses clopidogrel [Plavix] 75 mg PO DAILY #30 tab 02/15/19 07/22/20 Rx flash glucose sensor #1 each 05/03/19 07/21/20 Rx blood sugar diagnostic #400 each 06/22/19 07/21/20 Rx pantoprazole 40 mg tablet,delayed 40 mg PO QAM #90 tab-cap 06/28/19 07/22/20 Rx release empagliflozin 25 mg tablet 25 mg PO DAILY #90 tab-cap 09/10/19 07/22/20 Rx lisinopril 5 mg tablet 5 mg PO DAILY #90 tab-cap 10/04/19 07/22/20 Rx metoprolol succinate 100 mg 150 mg PO DAILY #135 tab-cap 10/04/19 07/22/20 Rx tablet,extended release 24 hr ammonium lactate 12 % topical cream 1 applic TP QD-BID PRN #140 gm 10/19/19 07/22/20 Rx triamcinolone acetonide 0.5 % 1 applic TP .BID-QID #15 gm 10/19/19 07/22/20 Rx topical cream rosuvastatin 40 mg tablet 40 mg PO HS #90 tab-cap 11/22/19 07/22/20 Rx aspirin 81 mg chewable tablet 81 mg PO DAILY #90 tab-cap 02/06/20 07/22/20 Rx magnesium oxide 400 mg (241.3 mg 400 mg PO DAILY #90 tab-cap 02/06/20 07/22/20 Rx magnesium) tablet metformin 1,000 mg tablet 1,000 mg PO BID #180 tab-cap 02/07/20 07/22/20 Rx lancets #400 each 04/24/20 07/21/20 Rx spironolactone 25 mg tablet 12.5 mg PO DAILY #45 tab-cap 04/25/20 07/22/20 Rx sertraline 100 mg tablet 200 mg PO DAILY #180 tab-cap 06/05/20 07/22/20 Rx insulin regular hum U-500 conc See Rx Instructions SC BID #6 ml 07/21/20 07/22/20 Rx Allergies Allergy/AdvReac Type Severity Reaction Status Date / Time bee venom protein (honey bee) Allergy Severe Swelling/Ed Verified 07/22/20 23:00 capri Penicillins Allergy Unknown Rash Verified 07/22/20 23:00 shellfish derived Allergy Unknown Rash; Verified 07/22/20 23:00 swelling Exam Const General: cooperative and no acute distress Nutritional Appearance: obese Eyes Conjunctivae: conjunctivae normal Pupils: PERRL Resp Effort & Inspection: normal respiratory effort Auscultation: clear to auscultation bilaterally Cardio Jugular venous pressure: no JVD Rate: regular rate Rhythm: regular rhythm Heart Sounds: S1 normal and S2 normal GI Inspection: obesity Palpation: soft Auscultation: normal bowel sounds Skin General skin exam: no rashes or lesions noted and other (brawny skin discoloration of ankles) Extrem General: no pedal edema and no calf tenderness Psych Appearance: grossly normal Mental Status: mental status grossly normal Mood: congruent mood Affect: blunted Attitude: cooperative COVID-19 Screening Have you,or household,traveled outside [place] in last 14 days?: No
[2020-07-28 15:30] VITALS: BP 121/88; PULSE 81; RESP 18; TEMP 36.3; O2SAT 97
[2020-07-28] MEDS: metFORMIN 500 MG TAB 1000 MG PO (17:01)
[2020-07-28] MEDS: Normal Saline Flush 10 ML SYR IVP (17:02)
[2020-07-28] MEDS: cefTRIAXone 2 GM/50 ML BAG IVPB (17:02)
[2020-07-28] MEDS: Heparin 5,000 UNITS/ML VIAL 5000 UNITS SC (17:44)
[2020-07-28 19:15] VITALS: BP 148/89; PULSE 97; RESP 18; TEMP 36.7; O2SAT 97
--- NOTE | 2020-07-28 19:22 | CMSA_ITS ---
- If Service Date Differs Date of service: 07/28/20 Time of Service: 17:00 SB Psychosocial/Act.Assessment - Hospital Admission Admission Date: 07/23/20 Admission From:: ED - Swing Bed Admission Swing Bed Admit Date:: 07/28/20 Swing Bed Level of Care: Level 1/SNF - Social Supports PREVIOUS FUNCTIONAL STATUS/SOCIAL/FAMILY SUPPORTS:: Edward lives with his spouse here in [place], he has been out of work related to his foot ulcer. He is applying for disability with the help of [facility]. Edward's spouse is Candy he has one son who lives in [place]. He is independent with ADL's and transportation. Edward has a limited ability to read and write, he learns well by demonstration and verbal teaching. - Prior to Admission Living Arrangements/Environment Prior to Admission:: see above - Education Highest Grade Completed:: 12 Where did you attend School:: [employer] Special Education/Training:: some college - Work History Employment Status:: unemployed since October [employer]:: [employer] - : No [place]'s Spouse: No - Baptist Active Scientology Member:: Yes Scientology Affliation: [employer] evangelical Will Scientology Members or Hotel Lobby Concierge Visit:: No - Community Community Supports/Involvement: none - Interests Hobbies:: working on old cars Crafts:: putting models together Sports:: watches football Music:: Country, Rock and Roll, Likes [employer]unes Radio TV/Movies:: Fast and [employer] Furious has all 8 movies Outdoor Activities:: Hunting, snowmobiling - Present Functional Status Physical Abilities:: independent Cognitive:: intact Communication:: good Sensory Systems: wears hearing aids (currently broken and at home). and glasses - Medical History PAST MEDICAL HISTORY/PAST SURGICAL HISTORY:: Medical History: Hyperuricemia (Inactive). Adult BMI > 30 (Chronic). Microalbuminuria (Chronic). Callus of foot (Chronic). Type 2 diabetes mellitus with retinopathy, with long-term current use of insulin (Chronic 10/27/17). Tubular adenoma of colon (Inactive 10/18/14). Sensorineural hearing loss, bilateral (Chronic 11/24/17). Restless leg syndrome (Chronic 10/31/14). Pulmonary hypertension (Chronic 07/14/17). Obstructive sleep apnea, adult (Chronic 10/31/14). Nonproliferative diabetic retinopathy (Chronic). Noncompliance with medication regimen (Chronic 07/06/13). NSTEMI (non-ST elevated myocardial infarction) (Inactive 07/11/17). Hyperlipidemia (Chronic 07/06/13). Erectile dysfunction (Chronic 07/06/13). Essential hypertension (Chronic 07/06/13). Elevated ferritin level (Chronic 10/20/17). Depression (Chronic 11/25/11). Conductive hearing loss (Chronic 07/06/13). Chronic HFrEF (heart failure with reduced ejection fraction) (Chronic 07/20/18). ASCVD (arteriosclerotic cardiovascular disease) (Chronic 07/28/17). Surgical History: S/P coronary artery stent placement (Inactive). Cholecystectomy (Resolved). Colonoscopy - IV Sedation (Resolved 10/14/14) General Health:: fair. Has a cardiac stent, Diabetes and hypertension Past Psychiatric Treatment:: none - Admission Data Reason for Swing Bed Admission:: IVAB Discharge Plan:: Visual Manager: Sissy Burt Date Assessment was completed:: 07/28/20
--- NOTE | 2020-07-28 19:50 | CMSCP_ITS ---
- If Service Date Differs Date of service: 07/28/20 Time of Service: 19:50 Swingbed Plan of Care Plan of care: SWING BED PROGRAM ACTIVITIES/DISCHARGE PLAN OF CARE ACTIVITIES PLAN Date:07/28/20 Identified Need:individualized activity plan Intervention/Plan: Ben has been offered and accepted word search books, maze puzzles and coloring materials from the [employer]. He plays music and plays games on his phone and visits with staff. He states that he has many firnds that work at [facility]. Initials [facility] DISCHARGE PLAN Date: 07/28/20 Identified Need: Safe Discharge plan Intervention/Plan:Ben will be discharged home with no new services and will follow up with his community providers. Initials: [facility]
[2020-07-28] MEDS: Magnesium Chloride 64 MG TABCR PO (20:31)
[2020-07-28 22:55] VITALS: BP 133/87; PULSE 82; RESP 18; TEMP 36.1; O2SAT 97
[2020-07-29] MEDS: Heparin 5,000 UNITS/ML VIAL 5000 UNITS SC ×3 (02:42→17:24)
--- NOTE | 2020-07-29 07:35 | W.PM.PROGNOT ---
Date of Service Date of service: 07/29/20 Time of Service: 07:35 Subjective Subjective Patient reports: no new complaints Interval history since last seen: 54-year-old male now on swing status seen at bedside resting comfortably. He is 4 days status post debridement diabetic wound right second metatarsal head with a through and through Kayce drain that was placed intraoperatively and has been removed. The wound is currently being managed with normal saline wet-to-dry packings. Microbiology reveals group C streptococcus and MSSA organism. He is currently receiving Rocephin 2 g IV daily. The hospitalist continues to manage his diabetes and other comorbidities. Exam Narrative Exam Narrative: Packings are removed from his right foot. The wound appears clean. No erythema or cellulitis is observed. The depth of the wound is showing granulation tissue without signs of sepsis. No contracture has occurred as of yet and the depth of the wound remains full-thickness going deep into the second intermetatarsal space. Pulses easily palpable at the ankle and dorsum of the foot. Ample pedal hair is observed. No peripheral edema or is noted. Calves are soft to palpation without signs of DVT. Good capillary return of all toes noted. He has normal muscle function although semirigid hammertoe deformities are appreciated which remain unchanged from his preoperative levels. He remains densely neuropathic has no complaints of pain in his right foot at this time. Impressions: Diabetic ulcer right second metatarsal head region 4 days status post debridement Plan: I will ask nursing to place a wound VAC to the right foot wound in an effort to encourage contracture granulation and wound closure. Standard protocols will be adhered to setting the wound VAC at 125 mmHg and changing it on a Tuesday regimen although since today is Tuesday the first change will occur on Tuesday. Ganesh understands we have asked him to keep weight off the ball of the foot if he gets out of bed to use the bathroom and to heel touch in the surgical shoe. I will ask PT to assess him and assist with ambulation. All questions were answered he is agreeable to this. Objective Objective Clinical Data: Vital Signs Temperature 36.1 C L 07/28/20 22:55 Temperature Source Tympanic 07/28/20 22:55 Pulse 82 07/28/20 22:55 Pulse Rhythm Regular 07/28/20 23:50 Respiratory Rate 18 09/07/20 22:55 Respiratory Effort Non-Labored 07/28/20 23:50 Respiratory Depth Normal 07/28/20 23:50 Respiratory Pattern Normal 07/28/20 23:50 Blood Pressure 133/87 07/28/20 22:55 Pulse Oximetry 97 07/28/20 22:55 Oxygen Delivery Method Room Air 07/28/20 22:55 Oxygen Flow Rate 0 07/28/20 22:55 Pain Level 0 07/28/20 22:55 Intake & Output 07/28/20 07/29/20 07/29/20 18:59 06:59 18:59 Intake Total 420 / 420 Output Total 700 / 700 Balance 420 / -280 -700 / -280 Weight 112.9 kg Intake: IV 50 / 50 Oral 370 / 370 Output: Urine 700 / 700 Other: Urine Color Yellow Light Peyton Urine Appearance Clear Urine Odor Normal Voiding Methods Toilet Bedside Commode Urinal
[2020-07-29 08:32] VITALS: BP 121/80; PULSE 87; RESP 18; TEMP 36.6; O2SAT 96
--- NOTE | 2020-07-29 08:34 | PT.INIE ---
Date of service: 07/29/20 Time of Service: 08:40 PT Notes Visit Reasons: STREPTOCOCCAL BACTEREMIA Inpatient Physical Therapy Evaluation Date: 07/29/20 Referring Doctor: Charles Valencia DPM PT Orders: PT CONSULT: Assess and assist with mobility Precautions: No WB ball of right foot, heel touch with surgical shoe, wound vac to be applied today Patient Profile/Admitting Diagnosis: Bactermia, diabetic foot ulcer, Type 2 diabetes mellitus with hyperglycemia, essential hypertension PMHX: Adult BMI > 30 (Chronic) ASCVD (arteriosclerotic cardiovascular disease) (Chronic 07/28/17) NSTEMI with HFrEF 07/11/2017 s/p MADONNA to mLAD on 07/14/2017 at [facility] Callus of foot (Chronic) I advised to purchase pumice stone and gentle smooth out the surface of the callus. Chronic HFrEF (heart failure with reduced ejection fraction) (Chronic 07/20/18) LVEF 30-35% on index presentation improved to 50% on f/u echo Conductive hearing loss (Chronic 07/06/13) Depression (Chronic 11/25/11) Diabetic foot ulcer (Acute) Elevated ferritin level (Chronic 10/20/17) Erectile dysfunction (Chronic 07/06/13) Essential hypertension (Chronic 07/06/13) Gastroesophageal reflux disease (Chronic) Hyperlipidemia (Chronic 07/06/13) 11/2017 labwork: 10-year ASCVD risk = ~6.1% --> continue current high intensity statin therapy (h/o ASCVD) Hyperuricemia (Inactive) Hypomagnesemia (Acute) Microalbuminuria (Chronic) Noncompliance with medication regimen (Chronic 07/06/13) Nonproliferative diabetic retinopathy (Chronic) NSTEMI (non-ST elevated myocardial infarction) (Inactive 07/11/17) 06/2017: S/p MADONNA to mLAD at [facility] Will require DAPT for a minimum of 1 year Obstructive sleep apnea, adult (Chronic 10/31/14) Severe, C-pap, Dr. Almeida continue on CPAP therapy with mask of choice,heated humidification and ramp. pressure should be set at 12 cm/H2o,alternatively auto CPAP 8-14 cm/H2O can be used. (sleep study note cameron Pulmonary hypertension (Chronic 07/14/17) 07/14/17 mild pulm hypertension, mild pulm capillary wedge pressure, elevated left ventricular end diastolic pressure, one vessel CAD-LAD w/ stent oinsertion Restless leg syndrome (Chronic 10/31/14) Per Sleep Lab Dr. Bui Sensorineural hearing loss, bilateral (Chronic 11/24/17) Tubular adenoma of colon (Inactive 10/18/14) Type 2 diabetes mellitus with retinopathy, with long-term current use of insulin (Chronic 10/27/17) Social History/Home Situation: Patient is primary caregiver of whom has memory issues after brain surgery, has steps or ramp to enter Current Functional Limitations: Impaired ambulation mobility Equipment Owned/DME: None Subjective: This PT spoke with nursing prior to seeing patient. Patient resting comfortably in bed upon entering room and agreeable to PT. Objective: General Observation: Patient Mental Status: Good Pain: 0/10 ROM: Right Upper Extremity: WNL Left Upper Extremity: WNL Right Lower Extremity: impaired ankle DF, otherwise WNL Left Lower Extremity: WNL Strength: Right Upper Extremity: Shoulder flexion 4+/5, Shoulder ER 4/5, otherwise WNL Left Upper Extremity: Shoulder ER 4/5, otherwise WNL Right Lower Extremity: ankle DF 4/5, otherwise WNL Left Lower Extremity: WNL Sensation: Intact Bed Mobility/Transfers: Independent Gait: SBA - harder to maintain heel touch walking independent in room. With use of FWW he is able to better and more safely ambulate. Needed instruction to push up from chair surface rather than pull on walker. Balance: Static Sitting: Good Dynamic Sitting: Good Static Standing: Fair Dynamic Standing: Poor Special Tests: Mobility Limitations Standardized Measure [facility] AM-PAC 6 clicks Basic Mobility Inpatient Short Form: Raw Score: 21 CMS Score: 28.97% Informed Consent/Education: Patient instructed in purpose of PT consult and plan of care. Assessment: Patient is a 54 year old male referred to physical therapy services with the diagnosis of diabetic foot ulcer. He underwent wound debridment on 07/25/20 for diabetic wound of right second metatarsal head. Culture came back positive for C streptococcus and MSSA. He reports no pain in the foot. Patient is independent with bed mobility and sit to stand transfers. Ambulating in room to chair he has a hard time maintaining toe touch only. FWW was trialed and he is able to maintain better balance and positioning to accomplish this. Instructed him to push off from chair rather than pull on walker to stand. Patient presents with clinical signs and symptoms consistent with difficulty walking and impaired gait. Wound VAC will be applied to right foot today. Patient will benefit from skilled PT services to promote independence and safe mobility and equipment management. Patient is assessed as Moderate 59925 complexity based on the following: History: See above Examination: See above Presentation: Evolving Decision Making: Moderate Goals: Goals x1 week 1. Gait - ambulate 50ft with FWW and maintaining precautions 2. Stairs - be able to perform 4 steps safely with step to gait 3. Independent with home exercise program Plan of Care/Treatment Plan: 1-2x/day, 7 days/week x 1 week. Plan of care has been reviewed with the MORGUE TECHNICIAN providing the service under Physical Therapy direction. Initiate Physical Therapy intervention for strengthening, bed mobility, transfers, gait, stairs, balance training, use of assistive device. DISCHARGE RECOMMENDATIONS: Home with assistive device TREATMENT CODE/TIME: 8:40 - 9:00 [id number] (20 minutes)
[2020-07-29] MEDS: metFORMIN 500 MG TAB 1000 MG PO ×2 (08:44→17:24)
[2020-07-29] MEDS: Magnesium Chloride 64 MG TABCR PO ×2 (08:45→19:27)
[2020-07-29] MEDS: Aspirin 81 MG CHEW PO (08:45)
[2020-07-29] MEDS: Insulin Aspart 300 UNITS/3 ML PEN SC ×2 (08:45→12:05)
[2020-07-29] MEDS: Metoprolol CR 50 MG TABCR 150 MG PO (08:45)
[2020-07-29] MEDS: Lisinopril 5 MG TAB PO (08:45)
[2020-07-29] MEDS: Pantoprazole 40 MG TABCR PO (08:45)
--- NOTE | 2020-07-29 10:00 | CMPROGNOTE_ITS ---
- If Service Date Differs Date of service: 07/29/20 Time of Service: 10:00 Care Management Progress Note S/O:Ganesh remains in SB1 for IV abx last dose date is 08/06/20.CM reviewed chart, discharge plan and goals of care reviewed at morning rounds. CM to continue to follow for discharge planning and disposition needs. A:Edward is a 54 year old male admitted with diabetic foot ulcer, positive blood cultures, and who will have a wound vac placed. P: Edward will be discharged home when medically ready, wound vac is being placed today, CM will continue to assess disposition needs including wound vac, home health nursing and PT. Edward plans on transporting himself home this to be det ermined pending wound.
--- NOTE | 2020-07-29 14:57 | PTTR_ITS ---
Date of service: 07/29/20 Time of Service: 14:57 PT Notes Visit Reasons: STREPTOCOCCAL BACTEREMIA Inpatient Physical Therapy Treatment Note [facility] Date: 07/29/2020 PRECAUTIONS: Fall, NWB on ball of R foot, wound vac SUBJECTIVE: Ganesh is pleasant and agreeable to participating in PT. He states that he does a lot of walking at home. He feels he is doing well keeping weight off the ball of his foot. OBJECTIVE: PAIN: No c/o pain BED MOBILITY/TRANSFERS Supine-sit: I Sit-supine: I Sit-stand: S - I Stand-sit: S - I Bed-Chair: S Chair-bed: S GAIT Assistive Device: FWW Weight bearing: NWB on ball of R foot Assist: SBA Distance: 10' x2 + 200' TOILETING: Patient toileted independently ASSESSMENT: Patient tolerated session without complaint. He was able to tole rate a progression in gait distance with FWW support and SBA. He demonstrates independence with bed mobility and toileting at this time. PLAN: Continue with global strengthening and gait training TREATMENT CODE/TIME: 25 minutes; 63682 x2
[2020-07-29 15:38] VITALS: BP 118/68; PULSE 82; RESP 18; TEMP 36.3; O2SAT 94
[2020-07-29] MEDS: cefTRIAXone 2 GM/50 ML BAG IVPB (15:46)
[2020-07-29] MEDS: Normal Saline Flush 10 ML SYR IVP ×2 (15:46→19:26)
--- NOTE | 2020-07-29 17:21 | PHA.REVIEW ---
Pharmacy Admission Review - Admission Clinical Review (Last Reviewed 07/28/20 @ 14:03 by David Raman MD) Bacteremia (Acute) Diabetic foot ulcer (Acute) bee venom protein (honey bee) Allergy (Severe, Verified 07/22/20 23:00) Swelling/Edema Penicillins Allergy (Unknown, Verified 07/22/20 23:00) Rash shellfish derived Allergy (Unknown, Verified 07/22/20 23:00) Rash; swelling Height 5 ft 10.87 in Weight 112.9 kg - Renal Dosing Medications needing adjustments: Reviewed - Anticoagulation DVT Prohphylaxis: Reviewed Medications: Heparin Therapeutic Anticoagulation: N/A - Opiate Usage Evaluate Pain Scale/Pains Meds: N/A - Relevant Labs Electrolytes, C-Reactive P, ESR: N/A - DM Control DM Control: Finger Stick Blood Glucose 79 Finger Stick Blood Glucose 79 Finger Stick Blood Glucose 140 Finger Stick Blood Glucose 140 Insulin Dosing: Intervened (Had to change u500 order from 46 u to 45 u -- MD made aware that u500 pens can only be dosed in increments of 5) - Heart Failure/IN EF%, YVETTE's, B-Blockers, Diuretics: Reviewed - BP Control BP Control: Blood Pressure 118/68 Blood Pressure 121/80 If elevated: Reviewed - Qtc Review If Elevated: N/A - IV to PO Switch IV Medications: Reviewed - Home Meds Home Med List reviewed: Reviewed - Current meds Current Medication Order Review: Reviewed (Bacteremia will require a 14 day course of antibiotics)
[2020-07-29 19:30] VITALS: BP 122/64; PULSE 77; RESP 17; TEMP 36.5; O2SAT 97
[2020-07-30] MEDS: Heparin 5,000 UNITS/ML VIAL 5000 UNITS SC ×3 (02:25→17:05)
[2020-07-30 03:25] VITALS: BP 112/72; PULSE 79; RESP 17; TEMP 36.5; O2SAT 97
[2020-07-30 07:09] LABS: HCT 36.9 % (40.0-50.0); HGB 12.3 g/dL (13.5-17.5); MCH 29.5 pg (27.0-33.0); MCHC 33.3 % (32.0-36.0); MCV 88.5 fL (80-95); MPV 8.5 fL (8.0-11.0); Platelet Count 351 10^3/uL (130-400); RBC 4.17 10^6/uL (4.36-5.78); RDW 12.5 % (11.8-14.1); RDW-SD 40.6 fL; WBC 7.87 10^3/uL (4.4-10.8)
[2020-07-30 07:30] VITALS: BP 116/75; PULSE 82; RESP 17; TEMP 36.4; O2SAT 95
[2020-07-30] MEDS: Insulin Aspart 300 UNITS/3 ML PEN SC (08:05)
[2020-07-30] MEDS: Lisinopril 5 MG TAB PO (08:06)
[2020-07-30] MEDS: metFORMIN 500 MG TAB 1000 MG PO ×2 (08:06→17:05)
[2020-07-30] MEDS: Metoprolol CR 50 MG TABCR 150 MG PO (08:06)
[2020-07-30] MEDS: Aspirin 81 MG CHEW PO (08:06)
[2020-07-30] MEDS: Pantoprazole 40 MG TABCR PO (08:06)
[2020-07-30] MEDS: Magnesium Chloride 64 MG TABCR PO ×2 (08:07→19:48)
--- NOTE | 2020-07-30 10:48 | PT.INTREAT ---
Date of service: 07/30/20 Time of Service: 10:48 PT Notes Visit Reasons: STREPTOCOCCAL BACTEREMIA Inpatient Physical Therapy Treatment Note [facility] Date: 07/30/2020 PRECAUTIONS: Fall, NWB on ball of R foot, wound vac SUBJECTIVE: Ganesh is pleasant and agreeable to participating in PT. He feels he is doing well keeping weight off the ball of his foot. He reports that he has been ambulating and transferring independently in his room, and feels safe. OBJECTIVE: Patient has been cleared to be independent within his room with transfers and ambulation. He must don post-op shoe, maintain weight bear status, and transport wound vac safely and appropriately. PAIN: No c/o pain BED MOBILITY/TRANSFERS Supine-sit: I Sit-supine: I Sit-stand: I Stand-sit: I Bed-Chair: I Chair-bed: I GAIT Assistive Device: SPC No AD Weight bearing: NWB on ball of R foot Assist: CGA-SBA with SPC I without AD Distance: 200' with SPC 20' without AD Deviation: Unsteady, path deviation, LOB x2 with SPC No issues without AD Patient was observed donning/doffing post-op shoe independently, patient was observed transporting wound vac safely and appropriately during gait training. ASSESSMENT: Patient tolerated session without complaint. He was able to tolerate a progression in gait distance with FWW support and SBA. He demonstrates independence with bed mobility and toileting at this time. PLAN: Start maintenance program 1-2x/week for progressed distance gait training with least restrictive device. TREATMENT CODE/TIME: 20 minutes; [id number]
--- NOTE | 2020-07-30 13:13 | CMACTNOTE_ITS ---
- If Service Date Differs Date of service: 07/30/20 Time of Service: 13:13 Care Management Activity Note Edward is in SB-1 to complete a course of IV antibiotics. He has many interests including working on [employer] cars, putting together models and watching movies. He has been working on Word Searches and has been provided with coloring pictures and crayons as well as maze puzzles. Edward also has many games on his phone which he plays from time to time. He will likely watch television when it is again available and listens to music on his phone at night. P: Edward will return home upon completion of his IV antibiotic therapy. He will likely need wound management if he continues to require a wound vac. CM will continue to support Edward and assess for discharge planning needs.
[2020-07-30] MEDS: Normal Saline 500 ML 30 ML IVPB (16:06)
[2020-07-30] MEDS: cefTRIAXone 2 GM/50 ML BAG IVPB (16:07)
[2020-07-30] MEDS: Normal Saline Flush 10 ML SYR IVP ×2 (16:08→17:55)
[2020-07-30 16:17] VITALS: BP 114/83; PULSE 87; RESP 18; TEMP 36.3; O2SAT 96
[2020-07-30] MEDS: Normal Saline Flush 10 ML SYR 20 ML IVP (19:49)
[2020-07-31 00:11] VITALS: BP 100/66; PULSE 82; RESP 18; TEMP 36.2; O2SAT 96
[2020-07-31] MEDS: Heparin 5,000 UNITS/ML VIAL 5000 UNITS SC ×3 (01:38→17:57)
[2020-07-31 07:32] VITALS: BP 120/83; PULSE 89; RESP 16; TEMP 35.8; O2SAT 96
[2020-07-31] MEDS: Magnesium Chloride 64 MG TABCR PO ×2 (08:07→20:08)
[2020-07-31] MEDS: Pantoprazole 40 MG TABCR PO (08:07)
[2020-07-31] MEDS: Aspirin 81 MG CHEW PO (08:08)
[2020-07-31] MEDS: Lisinopril 5 MG TAB PO (08:08)
[2020-07-31] MEDS: Metoprolol CR 50 MG TABCR 150 MG PO (08:08)
[2020-07-31] MEDS: metFORMIN 500 MG TAB 1000 MG PO ×2 (08:08→16:11)
[2020-07-31] MEDS: Insulin Aspart 300 UNITS/3 ML PEN SC ×3 (08:09→21:39)
[2020-07-31] MEDS: Normal Saline Flush 10 ML SYR 20 ML IVP ×2 (08:09→20:09)
--- NOTE | 2020-07-31 13:54 | CHAPLAIN ---
Edward was in bed watching something on his phone when I visited. He said he has been bored while he's here on swing bed. Care Management has given him puzzles, word searches and drawings to color and he said he likes doing those. He was going to ask for me. He told me about the antique cars and motorcycles he's working on and his dream to have his own garage where he can fix up cars. Edward has not had any visitors since he's been here.
[2020-07-31 15:30] VITALS: BP 111/73; PULSE 47; RESP 18; TEMP 36.6; O2SAT 96
[2020-07-31] MEDS: cefTRIAXone 2 GM/50 ML BAG IVPB (16:07)
[2020-07-31] MEDS: Normal Saline Flush 10 ML SYR IVP ×2 (16:11→17:57)
[2020-07-31 19:10] VITALS: BP 116/76; PULSE 76; RESP 17; TEMP 36.2; O2SAT 97
[2020-08-01] MEDS: Heparin 5,000 UNITS/ML VIAL 5000 UNITS SC ×3 (02:15→17:23)
[2020-08-01 06:56] LABS: HCT 38.1 % (40.0-50.0); HGB 12.7 g/dL (13.5-17.5); MCH 29.4 pg (27.0-33.0); MCHC 33.3 % (32.0-36.0); MCV 88.2 fL (80-95); MPV 8.6 fL (8.0-11.0); Platelet Count 338 10^3/uL (130-400); RBC 4.32 10^6/uL (4.36-5.78); RDW 12.5 % (11.8-14.1); RDW-SD 39.6 fL; WBC 8.49 10^3/uL (4.4-10.8)
[2020-08-01 07:39] VITALS: BP 108/74; PULSE 82; RESP 19; TEMP 35.7; O2SAT 97
[2020-08-01] MEDS: Normal Saline Flush 10 ML SYR IVP (08:38)
[2020-08-01] MEDS: Insulin Aspart 300 UNITS/3 ML PEN SC (08:39)
[2020-08-01] MEDS: Magnesium Chloride 64 MG TABCR PO ×2 (08:40→20:49)
[2020-08-01] MEDS: Lisinopril 5 MG TAB PO (08:40)
[2020-08-01] MEDS: metFORMIN 500 MG TAB 1000 MG PO ×2 (08:40→17:23)
[2020-08-01] MEDS: Pantoprazole 40 MG TABCR PO (08:40)
[2020-08-01] MEDS: Aspirin 81 MG CHEW PO (08:40)
[2020-08-01] MEDS: Metoprolol CR 50 MG TABCR 150 MG PO (08:40)
[2020-08-01] MEDS: Normal Saline Flush 10 ML SYR 20 ML IVP ×2 (08:42→20:49)
[2020-08-01 09:14] LABS: C-Reactive Protein 0.43 mg/dL (0.0-0.3)
--- NOTE | 2020-08-01 09:14 | PGE_ITS ---
Date of Service Date of service: 08/01/20 Time of Service: 09:15 Subjective Subjective Patient reports: no new complaints Interval history since last seen: Edward is resting comfortably in bed. He is tolerating his IV ceftriaxone and wound VAC without difficulty. He has no new complaints. He has been up and about with physical therapy and needs a walker secondary to imbalance which is a chronic issue for him. Exam Narrative Exam Narrative: Edward is seen at bedside. The wound VAC is intact and operating normally. Morning labs were reviewed. Wound vac was removed from his right foot. The wound is showing early signs of granulation tissue.There is some hypertrophy around the margin as well as along the inner wall of the wound. There is no odor, no signs of sepsis, no erythema appreciated. The dorsal incision is still having a little serous drainage but appears to be healing up uneventfully. Peripheral pulses are well maintained, no peripheral edema, calf is soft to palpation no additional skin breakdown noted. He remains moderately neuropathic secondary to diabetes. Impressions: 1 week status post debridement right foot for diabetic ulcer Plan: With a #10 scalpel the periphery and side guzman of the wound was sharply debrided partial thickness, with good bleeding noted. Measurements were obtained 3 cm in length 0.8 cm in width and 1.4 cm deep. 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 The wound is responding positively to the wound VAC treatment. We will continue with the wound VAC at the current settings, continue with the planned course of IV ceftriaxone. I did add a CRP to his morning labs which is still pending. I will continue to follow and appreciate the hospitalist continued medical management. Objective Objective Clinical Data: Abnormal lab results 08/01/20 Range/Units 06:40 RBC 4.32 L (4.36-5.78) 10^6/uL Hgb 12.7 L (13.5-17.5) g/dL Hct 38.1 L (40.0-50.0) % Vital Signs Temperature 35.7 C L 08/01/20 07:39 Temperature Source Tympanic 08/01/20 07:39 Pulse 82 08/01/20 07:39 Pulse Rhythm Regular 08/01/20 01:00 Respiratory Rate 19 08/01/20 07:39 Respiratory Effort 08/01/20 01:00 Respiratory Depth Normal 08/01/20 01:00 Respiratory Pattern Normal 08/01/20 01:00 Blood Pressure 108/74 08/01/20 07:39 Pulse Oximetry 97 08/01/20 07:39 Oxygen Delivery Method Room Air 08/01/20 07:39 Oxygen Flow Rate 0 08/01/20 07:39 Pain Level 0 08/01/20 07:39 Comment 07/31/20 17:00 Intake & Output 07/31/20 08/01/20 08/01/20 18:59 06:59 18:59 Intake Total 1180 / 1180 Output Total 775 / 1675 900 / 1675 Balance 405 / -495 -900 / -495 Intake: IV 150 / 150 Oral 1030 / 1030 Output: Urine 775 / 1675 900 / 1675 Other: Urine Color Pale Yellow Yellow Urine Appearance Clear Urine Odor Normal Comment Per pt. report, void x1 in the toilet. Voiding Methods Toilet Urinal Laboratory Results WBC 8.49 10^3/uL (4.4-10.8) 08/01/20 06:40 RBC 4.32 10^6/uL (4.36-5.78) L 08/01/20 06:40 Hgb 12.7 g/dL (13.5-17.5) L 08/01/20 06:40 Hct 38.1 % (40.0-50.0) L 08/01/20 06:40 MCV 88.2 fL (80-95) 08/01/20 06:40 MCH 29.4 pg (27.0-33.0) 08/01/20 06:40 MCHC 33.3 % (32.0-36.0) 08/01/20 06:40 RDW 12.5 % (11.8-14.1) 08/01/20 06:40 Plt Count 338 10^3/uL (130-400) 08/01/20 06:40 MPV 8.6 fL (8.0-11.0) 08/01/20 06:40
[2020-08-01] MEDS: Clopidogrel 75 MG TAB PO (09:39)
--- NOTE | 2020-08-01 10:03 | W.NUTRFU ---
Date of service: 08/01/20 Time of Service: 10:03 Nutritional Follow up NOTE: aGnesh continues on Diabetic Diet with excellent intake. Continues to meet 100% nutrient and fluid needs. Fluctuating blood sugars noted, sliding scale insulin for correction. Will continue to follow. Time Spent in Nutritional Counseling and Treatment: 0 time spent face to face
--- NOTE | 2020-08-01 13:16 | CMPROGNOTE_ITS ---
- If Service Date Differs Date of service: 08/01/20 Time of Service: 13:16 Care Management Progress Note S/O: Edward was sitting up in bed when CM met with him. He was open and friendly and talked a bit about his struggles with diabetes. He stated that he thinks he needs an insulin pump because he has not been able to control his glucose levels well. He verbalized that he has discussed this with his PCP. CM contacted the PCP office and confirmed this. An Endocrinology referral has been sent to [facility] by PCP. CM contacted adult educator and Edward will be seen on Tuesday to review his concerns. P: Edward will be discharged home with no new services. He will follow up with his PCP and discharge plan of care and transport with . CM will continue to support Edward and his discharge needs.
[2020-08-01 15:27] VITALS: BP 99/69; PULSE 81; RESP 18; TEMP 35.5; O2SAT 97
[2020-08-01] MEDS: Normal Saline 500 ML 30 ML IVPB (15:34)
[2020-08-01] MEDS: cefTRIAXone 2 GM/50 ML BAG IVPB (15:34)
[2020-08-01 19:07] VITALS: BP 107/74; PULSE 82; RESP 17; TEMP 36.3; O2SAT 97
[2020-08-01 23:20] VITALS: BP 111/77; PULSE 91; RESP 17; TEMP 36; O2SAT 97
[2020-08-02] MEDS: Heparin 5,000 UNITS/ML VIAL 5000 UNITS SC ×3 (02:34→17:29)
[2020-08-02 06:34] VITALS: BP 125/88; PULSE 87; RESP 18; TEMP 36.1; O2SAT 98
[2020-08-02 07:38] VITALS: BP 125/82; PULSE 85; RESP 18; TEMP 35.8; O2SAT 96
[2020-08-02 07:57] LABS: HCT 42.5 % (40.0-50.0); HGB 14.3 g/dL (13.5-17.5); MCH 29.7 pg (27.0-33.0); MCHC 33.6 % (32.0-36.0); MCV 88.2 fL (80-95); MPV 8.6 fL (8.0-11.0); Platelet Count 394 10^3/uL (130-400); RBC 4.82 10^6/uL (4.36-5.78); RDW 12.6 % (11.8-14.1); RDW-SD 40.2 fL; WBC 9.03 10^3/uL (4.4-10.8)
[2020-08-02] MEDS: Lisinopril 5 MG TAB PO (09:08)
[2020-08-02] MEDS: Pantoprazole 40 MG TABCR PO (09:08)
[2020-08-02] MEDS: Clopidogrel 75 MG TAB PO (09:08)
[2020-08-02] MEDS: Aspirin 81 MG CHEW PO (09:09)
[2020-08-02] MEDS: metFORMIN 500 MG TAB 1000 MG PO ×2 (09:09→17:04)
[2020-08-02] MEDS: Metoprolol CR 50 MG TABCR 150 MG PO (09:10)
[2020-08-02] MEDS: Insulin Aspart 300 UNITS/3 ML PEN SC ×2 (09:10→11:45)
[2020-08-02] MEDS: Magnesium Chloride 64 MG TABCR PO ×2 (09:13→19:22)
[2020-08-02] MEDS: Normal Saline Flush 10 ML SYR 20 ML IVP ×2 (09:14→19:22)
[2020-08-02 15:09] VITALS: BP 101/65; PULSE 82; RESP 18; TEMP 36.7; O2SAT 96
[2020-08-02] MEDS: cefTRIAXone 2 GM/50 ML BAG IVPB (16:12)
[2020-08-02] MEDS: Normal Saline Flush 10 ML SYR IVP (16:13)
[2020-08-02 19:00] VITALS: BP 116/77; PULSE 85; RESP 18; TEMP 36.3; O2SAT 95
[2020-08-02] MEDS: Insulin Glargine 300 UNITS/3 ML PEN 15 UNITS SC (21:19)
[2020-08-02 22:57] VITALS: BP 113/77; PULSE 83; RESP 18; TEMP 36.4; O2SAT 96
[2020-08-03] MEDS: Heparin 5,000 UNITS/ML VIAL 5000 UNITS SC ×3 (02:38→18:19)
[2020-08-03] MEDS: Magnesium Chloride 64 MG TABCR PO ×2 (07:37→19:50)
[2020-08-03] MEDS: Clopidogrel 75 MG TAB PO (07:38)
[2020-08-03] MEDS: Pantoprazole 40 MG TABCR PO (07:38)
[2020-08-03] MEDS: metFORMIN 500 MG TAB 1000 MG PO ×2 (07:38→16:54)
[2020-08-03] MEDS: Aspirin 81 MG CHEW PO (07:38)
[2020-08-03] MEDS: Lisinopril 5 MG TAB PO (07:39)
[2020-08-03] MEDS: Metoprolol CR 50 MG TABCR 150 MG PO (07:39)
[2020-08-03 07:55] VITALS: BP 122/71; PULSE 79; RESP 19; TEMP 35.8; O2SAT 96
[2020-08-03] MEDS: Insulin Aspart 300 UNITS/3 ML PEN SC ×3 (09:18→22:10)
[2020-08-03] MEDS: Normal Saline Flush 10 ML SYR 20 ML IVP ×2 (09:20→19:49)
[2020-08-03 15:14] VITALS: BP 112/74; PULSE 84; RESP 17; TEMP 36.5; O2SAT 94
[2020-08-03] MEDS: cefTRIAXone 2 GM/50 ML BAG IVPB (15:37)
[2020-08-03] MEDS: Normal Saline Flush 10 ML SYR IVP (15:38)
[2020-08-03 19:25] VITALS: BP 111/75; PULSE 89; RESP 18; TEMP 36; O2SAT 96
[2020-08-03] MEDS: Insulin Glargine 300 UNITS/3 ML PEN 15 UNITS SC (22:09)
[2020-08-04] MEDS: Heparin 5,000 UNITS/ML VIAL 5000 UNITS SC ×3 (02:50→17:41)
[2020-08-04 03:14] VITALS: BP 118/80; PULSE 83; RESP 17; TEMP 36.2; O2SAT 96
[2020-08-04 07:24] LABS: HCT 38.5 % (40.0-50.0); HGB 12.8 g/dL (13.5-17.5); MCH 29.5 pg (27.0-33.0); MCHC 33.2 % (32.0-36.0); MCV 88.7 fL (80-95); MPV 8.9 fL (8.0-11.0); Platelet Count 327 10^3/uL (130-400); RBC 4.34 10^6/uL (4.36-5.78); RDW 12.6 % (11.8-14.1); RDW-SD 40.3 fL; WBC 7.56 10^3/uL (4.4-10.8)
[2020-08-04 08:39] LABS: Anion Gap 8.9 mmol/L (3-11); BUN 21 mg/dL (7-18); C-Reactive Protein 0.24 mg/dL (0.0-0.3); CO2 25.1 mmol/L (21.0-32.0); CREATININE 0.81 mg/dL (0.70-1.30); Calcium 9.4 mg/dL (8.5-10.1); Chloride 103 mmol/L (98-107); Glucose 187 mg/dL (74-106); Potassium 4.7 mmol/L (3.5-5.1); Sodium 137 mmol/L (136-145)
[2020-08-04] MEDS: Insulin Aspart 300 UNITS/3 ML PEN SC ×3 (08:50→16:51)
[2020-08-04] MEDS: metFORMIN 500 MG TAB 1000 MG PO ×2 (08:52→16:51)
[2020-08-04] MEDS: Magnesium Chloride 64 MG TABCR PO ×2 (08:53→21:32)
[2020-08-04] MEDS: Metoprolol CR 50 MG TABCR 150 MG PO (08:54)
[2020-08-04] MEDS: Lisinopril 5 MG TAB PO (08:54)
[2020-08-04] MEDS: Clopidogrel 75 MG TAB PO (08:55)
[2020-08-04] MEDS: Aspirin 81 MG CHEW PO (08:55)
[2020-08-04] MEDS: Pantoprazole 40 MG TABCR PO (08:55)
[2020-08-04] MEDS: Normal Saline Flush 10 ML SYR 20 ML IVP ×2 (08:57→21:31)
--- NOTE | 2020-08-04 09:53 | PGE_ITS ---
Date of Service Date of service: 08/04/20 Time of Service: 09:55 Assessment and Plan Assessment and plan (1) Diabetic foot ulcer: Start date: 08/04/20 Start time: 09:59 Status: Acute Assessment and plan: S/P debridement. Podiatry managing. No current local infection. Now on rocephin 2 gram IV daily. On SB, surveillance labs CRP 0.[address] Valencia regarding wound vac Qualifiers: Diabetic foot ulcer location: other Diabetes mellitus type: type 2 Laterality: right Non-pressure ulcer stage: unspecified non-pressure ulcer stage Qualified Code(s): E11.621 - Type 2 diabetes mellitus with foot ulcer; L97.519 - Non-pressure chronic ulcer of other part of right foot with unspe cified severity (2) Type 2 diabetes mellitus with hyperglycemia, with long-term current use of insulin: Start date: 08/04/20 Start time: 10:01 Status: Chronic Assessment and plan: Cont basal/bolus insulin Adjusting for AM low readings. Consistent carb diet. (3) Essential hypertension: Start date: 08/04/20 Start time: 10:01 Status: Chronic Assessment and plan: Controlled. Cont Lisinopril and Metoprolol (4) Bacteremia: Start date: 08/04/20 Start time: 10:04 Status: Acute Assessment and plan: Group C strep bacteremia Completing a 14 day course of antibiotics: Rocephin 2 gram IV daily. End date 08/07 Echocardiogram was negative for valvular vegetations. above case discussed with Dr. Mendoza who is in agreement. Subjective Subjective Patient reports: no new complaints Interval history since last seen: Feels better, laying in bed. Denies N/V/D, not in any pain. End date for antibiotic infusion 08/07 Exam Const General: cooperative and no acute distress Nutritional Appearance: obese Eyes Conjunctivae: conjunctivae normal Pupils: PERRL Resp Effort & Inspection: normal respiratory effort Auscultation: clear to auscultation bilaterally Cardio Jugular venous pressure: no JVD Rate: regular rate Rhythm: regular rhythm Heart Sounds: S1 normal and S2 normal GI Inspection: obesity Palpation: soft Auscultation: normal bowel sounds Skin General skin exam: no rashes or lesions noted and other (brawny skin discoloration of ankles) Extrem General: no pedal edema and no calf tenderness Psych Appearance: grossly normal Mental Status: mental status grossly normal Mood: congruent mood Affect: blunted Attitude: cooperative Objective Last Vital Signs Temp 36.2 C L 08/04/20 03:14 Pulse 83 08/04/20 03:14 Resp 17 08/04/20 03:14 BP 118/80 08/04/20 03:14 Pulse Ox 96 08/04/20 03:14 Laboratory Results - last 24 hr 08/04/20 08/04/20 07:07 07:07 WBC 7.56 RBC 4.34 L Hgb 12.8 L Hct 38.5 L MCV 88.7 MCH 29.5 MCHC 33.2 RDW 12.6 Plt Count 327 MPV 8.9 Sodium 137 Potassium 4.7 Chloride 103 Carbon Dioxide 25.1 Anion Gap 8.9 BUN 21 H Creatinine 0.81 Estimated GFR/1.73 m2 >= 60.00 Glucose 187 H Calcium 9.4 C-Reactive Protein 0.24
[2020-08-04 10:00] VITALS: BP 134/80; PULSE 74; RESP 18; TEMP 36.3; O2SAT 95
[2020-08-04 16:02] VITALS: BP 116/76; PULSE 84; RESP 19; TEMP 36.3; O2SAT 95
[2020-08-04] MEDS: Normal Saline 500 ML 30 ML IVPB (16:48)
[2020-08-04] MEDS: cefTRIAXone 2 GM/50 ML BAG IVPB (16:49)
[2020-08-04 21:24] VITALS: BP 123/79; PULSE 85; RESP 18; TEMP 36.7; O2SAT 93
[2020-08-04] MEDS: Insulin Glargine 300 UNITS/3 ML PEN 15 UNITS SC (21:34)
[2020-08-05] MEDS: Heparin 5,000 UNITS/ML VIAL 5000 UNITS SC ×3 (02:26→18:07)
[2020-08-05 03:55] VITALS: BP 132/78; PULSE 74; RESP 17; TEMP 36.9; O2SAT 98
[2020-08-05 08:09] VITALS: BP 108/68; PULSE 83; RESP 17; TEMP 36.5; O2SAT 97
[2020-08-05] MEDS: Normal Saline Flush 10 ML SYR 20 ML IVP ×2 (08:52→20:10)
[2020-08-05] MEDS: Magnesium Chloride 64 MG TABCR PO ×2 (08:53→20:09)
[2020-08-05] MEDS: Pantoprazole 40 MG TABCR PO (08:53)
[2020-08-05] MEDS: Metoprolol CR 50 MG TABCR 150 MG PO (08:53)
[2020-08-05] MEDS: Clopidogrel 75 MG TAB PO (08:53)
[2020-08-05] MEDS: metFORMIN 500 MG TAB 1000 MG PO ×2 (08:53→17:16)
[2020-08-05] MEDS: Lisinopril 5 MG TAB PO (08:53)
[2020-08-05] MEDS: Aspirin 81 MG CHEW PO (08:53)
[2020-08-05] MEDS: Insulin Aspart 300 UNITS/3 ML PEN SC ×2 (08:54→12:32)
[2020-08-05 16:10] VITALS: BP 114/77; PULSE 84; RESP 18; TEMP 36.4; O2SAT 98
[2020-08-05] MEDS: Normal Saline 500 ML 30 ML IVPB (17:15)
[2020-08-05] MEDS: cefTRIAXone 2 GM/50 ML BAG IVPB (17:16)
--- NOTE | 2020-08-05 17:18 | W.PM.PROGNOT ---
Date of Service Date of service: 08/05/20 Time of Service: 17:18 Subjective Subjective Patient reports: no new complaints and feels better Interval history since last seen: Ganesh is seen at bedside. He is resting comfortably and has no new complaints. He denies any pain in his right foot. He is scheduled for his final dose of Rocephin on . He is looking forward to going home on . Exam Narrative Exam Narrative: Lab work continues to trend to normal levels and inflammatory markers have normalized. Right foot is warm to the touch with good pulsations, pedal hair is noted. No peripheral edema or DVT noted. Wound VAC is removed from his right foot. The wound appears pink and healthy it is shalonda and granulating. There is no erythema, no purulence, no cellulitis no signs of infection. The wound measured yesterday 2.7 in length 0.7 in width 1.3 in depth. Today the wound is smaller measuring 2.4 cm in length by 0.6 cm in width by 1 cm in depth. The dorsal incision area has healed and there is no drainage or signs of infection evident. Impressions: 11 days status post debridement right diabetic wound with group C streptococcus and staph aureus MSSA organisms identified Plan: Reapplied the wound VAC to his right foot at 125 mmHg constant suction. He is scheduled to receive his last IV dose of IV Rocephin on . I will have nursing remove current wound VAC and replace it with a bina wound VAC system which can be left on for 1 week. Home health will make visits to assess for functionality of the wound VAC and reinforce and/or adjust as needed . I plan to see him in the office on 14 August and will continue managing the wound as needed. I appreciate the fine nursing care and hospitalist attention Ganesh has received during his stay. Objective Last Vital Signs Temp 36.4 C L 08/05/20 16:10 Pulse 84 08/05/20 16:10 Resp 18 08/05/20 16:10 BP 114/77 08/05/20 16:10 Pulse Ox 98 08/05/20 16:10
[2020-08-05 20:17] VITALS: BP 120/75; PULSE 87; RESP 18; TEMP 36.8; O2SAT 96
[2020-08-05] MEDS: Insulin Glargine 300 UNITS/3 ML PEN 15 UNITS SC (22:20)
[2020-08-06] MEDS: Heparin 5,000 UNITS/ML VIAL 5000 UNITS SC ×3 (01:59→17:19)
[2020-08-06 06:00] VITALS: BP 118/78; PULSE 45; RESP 18; TEMP 36.5; O2SAT 96
[2020-08-06 07:23] LABS: HCT 41.6 % (40.0-50.0); MCH 29.9 pg (27.0-33.0); MCHC 33.7 % (32.0-36.0); MCV 88.9 fL (80-95); MPV 8.9 fL (8.0-11.0); Platelet Count 386 10^3/uL (130-400); RBC 4.68 10^6/uL (4.36-5.78); RDW-SD 41.4 fL; WBC 8.94 10^3/uL (4.4-10.8)
[2020-08-06 07:54] VITALS: BP 121/83; PULSE 87; RESP 19; TEMP 36.1; O2SAT 95
[2020-08-06] MEDS: Insulin Aspart 300 UNITS/3 ML PEN SC (08:24)
[2020-08-06] MEDS: Clopidogrel 75 MG TAB PO (09:20)
[2020-08-06] MEDS: Pantoprazole 40 MG TABCR PO (09:20)
[2020-08-06] MEDS: metFORMIN 500 MG TAB 1000 MG PO ×2 (09:21→17:19)
[2020-08-06] MEDS: Aspirin 81 MG CHEW PO (09:21)
[2020-08-06] MEDS: Normal Saline Flush 10 ML SYR 20 ML IVP ×2 (09:23→19:53)
[2020-08-06] MEDS: Lisinopril 5 MG TAB PO (09:28)
[2020-08-06] MEDS: Magnesium Chloride 64 MG TABCR PO ×2 (09:28→19:53)
[2020-08-06] MEDS: Metoprolol CR 50 MG TABCR 150 MG PO (09:38)
[2020-08-06 16:20] VITALS: BP 123/64; PULSE 70; RESP 18; TEMP 36.2; O2SAT 98
[2020-08-06] MEDS: cefTRIAXone 2 GM/50 ML BAG IVPB (16:26)
[2020-08-06] MEDS: Normal Saline 500 ML 30 ML IVPB (16:27)
[2020-08-06] MEDS: Normal Saline Flush 10 ML SYR IVP (16:28)
--- NOTE | 2020-08-06 16:43 | DM INPTCON_ITS ---
Date of service: 08/06/20 Time of Service: 11:00 Diabetes Inpatient Consult DESCRIPTION/ASSESSMENT: Edward is a 54 y/o male w/ hx DM2, long-term insulin use and hyperglycemia. Noted: documented microalbuminuria indicating potential compromised kidney function r/t DM. Currently has DM related foot ulcer He reports blood sugar levels in the high 300's recently and documentation shows A1c 14.0 on 07/21. He is on 1000mg metformin BID and insulin u-500. He reports 50 units BID. His BG levels are going down w/ diet of <60g/CHO per meal period and structured insulin dosing in the inpatient setting. He requested information on CGM to help w/ tracking BG and states that he takes his BG readings 3x/day at home using glucometer. He appears motivated to change lifestyle as a result of his DM related foot injury which may help w/ hx medication non-compliance. INTERVENTION: Recommend double portion pro at meals to help with wound healing. Provided copy of current sliding scale for reference. Reviewed insulin and metformin regimen to verify comprehension. Explained, demonstrated and recommended carbs and cals phone gabriela to help w/ CHO counting. Reviewed CHO counting techniques providing literature and recipe review to reiterate CHO content in a favorite food he often prepares. Provided contact info to make this RD available as a resource for culinary nutrition advice to help with DM self managment. PLAN: Monitor weights, labs and BG levels. Edward agrees to Inform florist helper, account manager education and dentist of recent developments r/t DM and schedule visits. Recommend F/U outpatient appointment per PCP referral to review BG levels and relationship to food choices along with support and encouragement to promote self management techniques for DM. Discuss CGM option at F/U outpatient appoi ntment. Time Spent in Nutritional Counseling and Treatment: 30 minutes
[2020-08-06 19:58] VITALS: BP 108/69; PULSE 82; RESP 18; TEMP 36; O2SAT 97
[2020-08-06] MEDS: Insulin Glargine 300 UNITS/3 ML PEN 15 UNITS SC (21:22)
[2020-08-07] MEDS: Heparin 5,000 UNITS/ML VIAL 5000 UNITS SC ×2 (01:36→09:35)
[2020-08-07 03:48] VITALS: BP 123/82; PULSE 86; RESP 18; TEMP 36.7; O2SAT 97
[2020-08-07 07:23] VITALS: BP 111/79; PULSE 90; RESP 17; TEMP 36.4; O2SAT 97
[2020-08-07] MEDS: Magnesium Chloride 64 MG TABCR PO (07:34)
[2020-08-07] MEDS: Metoprolol CR 50 MG TABCR 150 MG PO (07:35)
[2020-08-07] MEDS: Clopidogrel 75 MG TAB PO (07:35)
[2020-08-07] MEDS: metFORMIN 500 MG TAB 1000 MG PO (07:35)
[2020-08-07] MEDS: Lisinopril 5 MG TAB PO (07:35)
[2020-08-07] MEDS: Pantoprazole 40 MG TABCR PO (07:35)
[2020-08-07] MEDS: Aspirin 81 MG CHEW PO (07:35)
[2020-08-07] MEDS: Normal Saline Flush 10 ML SYR 20 ML IVP (07:36)
[2020-08-07] MEDS: Insulin Aspart 300 UNITS/3 ML PEN SC (07:37)
--- NOTE | 2020-08-07 10:03 | W.PM.DS.N ---
Date of service: 08/07/20 Time of Service: 10:03 DS: Diagnosis Discharge Diagnosis (1) Diabetic foot ulcer: Status: Acute (2) Type 2 diabetes mellitus with hyperglycemia, with long-term current use of insulin: Status: Chronic (3) Essential hypertension: Status: Chronic (4) Bacteremia: Status: Acute Discharge Plan Disposition Patient Disposition: HOME W/HOME HEALTH SERVICE Condition: Good Discharge Details Reason For Visit: STREPTOCOCCAL BACTEREMIA Admit Date/Time: 07/28/20 13:41 Admit Provider: David Raman Attending Provider: David Raman Primary Care Provider: Camilla Sherman [facility] Hospital Course: This is a 54 male with history of poorly controlled diabetes mellitus type 2, A1C > 14 who presented to the ED for c/o of right foot ulcer he has had for month, being managed by podiatry outpatient on clindamycin having increased pain and swelling previous 2-3 days. Started on Clindamycin as outpatient. Work up with negative for osteo, his ESR 100, CRP 16, WBC 14K which have all trended downwards with narrowed treatment to Rocephin based on cultures which grew Group C strep and MSSA in wound and Group C in blood. repeat cultures have been negative. Podiatry has been directing care and he also underwent ulcer/wound debridement with mary drain placement, now with a KIRT wound vac system in place. He has complete a 14 day course of antibiotics. Wound s/p debridement is w/o erythema or drainage. His echocardiogram showed no valvular vegetations. diabetic education was following and blood sugars have been better controlled on lantus 15 unit at HS with sliding scale coverage which he has demonstrated ability to perform. sliding scale sheet provided and he will continue at home. He should continue with outpatient diabetic education. Home health nursing will be monitoring wound and medication oversight and routine nursing evaluation of vitals and blood sugars. he is scheduled to follow up outpatient and will continue to be follow by Dr Valencia. discharge plan discussed with Dr Mccoy who is in agreement Home Meds and New Rx's Prescriptions: New Lantus Solostar U-100 Insulin 100 unit/mL (3 mL) Insulin Pen 15 unit subcut HS Qty: 15 RF: 0 insulin aspart U-100 [Novolog Flexpen U-100 Insulin] 100 unit/mL (3 mL) Insulin Pen 0 units subcut 0800,1200,1700,2200 Qty: 15 RF: 0 Continued rosuvastatin [Crestor] 40 mg tablet 40 mg PO HS Qty: 90 RF: 3 triamcinolone acetonide 0.5 % cream 1 applic TP .BID-QID Qty: 15 RF: 0 ammonium lactate 12 % cream 1 applic TP QD-BID PRN (Reason: dry skin) Qty: 140 RF: 3 (DME) lancets Misc See Rx Instructions .ROUTE .MEDSUPPLY Qty: 400 RF: 3 sertraline [Zoloft] 100 mg tablet 200 mg PO DAILY Qty: 180 RF: 3 insulin regular hum U-500 conc 500 unit/mL (3 mL) insulin pen See Rx Instructions SC BID Qty: 6 RF: 3 (DME) pen needle, diabetic 1 EACH needle Miscellaneous TID Qty: 300 RF: 3 nitroglycerin 0.4 mg tablet, sublingual 0.4 mg SL Q5M MDD 3 doses PRN (Reason: chest pain) Qty: 30 RF: 0 (DME) FreeStyle Flako 14 Day Sensor kit See Dose Instructions .ROUTE .MEDSUPPLY Qty: 1 RF: 0 (DME) Blood Glucose Test Strip See Rx Instructions .ROUTE .MEDSUPPLY Qty: 400 RF: 3 pantoprazole 40 mg tablet,delayed release (DR/EC) 40 mg PO QAM Qty: 90 RF: 3 Jardiance 25 mg tablet 25 mg PO DAILY Qty: 90 RF: 3 lisinopril 5 mg tablet 5 mg PO DAILY Qty: 90 RF: 3 metoprolol succinate 100 mg tablet extended release 24 hr 150 mg PO DAILY Qty: 135 RF: 3 aspirin 81 mg tablet,chewable 81 mg PO DAILY Qty: 90 RF: 3 magnesium oxide 400 mg (241.3 mg magnesium) tablet 400 mg PO DAILY Qty: 90 RF: 3 metformin 1,000 mg tablet 1,000 mg PO BID Qty: 180 RF: 3 spironolactone 25 mg tablet 12.5 mg PO DAILY Qty: 45 RF: 3 Discharge Instructions Instructions: Diabetic Foot Ulcers (DC), Bacteremia (DC) Additional Instructions: kirt wound VAC system which can be left on for 5 days up to 1 week. blood sugar monitoring before meals and at bedtime, record and bring to your follow up appointment. follow sliding scale for meal and bedtime coverage as directed, (you have been given a sheet to follow). continue outpatient diabetic education. Stand Alone Forms: Nursing Discharge Form Referrals: Charles Valencia DPM [[facility] STAFF PHYSICIAN] - 08/14/20 3:45 pm Activity:: Activity as Tolerated Equipment/Supplies:: Insulin and needles Diet:: Carb Counting Discharge Orders Discharge Orders: Discharge Order (Routine); Ordered 08/07/20 Ordered By: Yessy Vizcarra DS: Summary Status at Discharge Functional status at discharge: uses cane/walker Overall status at discharge: patient is progressing back to baseline Mental Status: mental status grossly normal Speech and Movement: speech and movement normal Mood: congruent mood Affect: normal affect Exam Const General: cooperative, no acute distress and ill appearing chronically (older appearing than stated age) Nutritional Appearance: obese Orientation: alert and oriented x3 Limitations: altered mental status HENMT Head: normal to inspection, normocephalic and atraumatic Mouth: moist mucous membranes abnormal (slightly dry) Resp Effort & Inspection: normal respiratory effort Cardio Rate: regular rate Rhythm: regular rhythm GI Inspection: normal to inspection Palpation: soft Extrem General: no pedal edema and other (kirt wound device intact to plantar aspect or right foot. no erythema) Psych Mental Status: mental status grossly normal Speech and Movement: speech and movement normal Mood: congruent mood Affect: normal affect DS: Data Vitals/I&O Vitals and I&O: Vital Signs Temperature 36.4 C L 08/07/20 07:23 Temperature Source Tympanic 08/07/20 07:23 Pulse 90 08/07/20 07:23 Pulse Rhythm Regular 08/07/20 09:38 Respiratory Rate 17 08/07/20 07:23 Respiratory Effort Non-Labored 08/07/20 09:38 Respiratory Depth Normal 08/07/20 09:38 Respiratory Pattern Normal 08/07/20 09:38 Blood Pressure 111/79 08/07/20 07:23 Pulse Oximetry 97 08/07/20 07:23 Oxygen Delivery Method Room Air 08/07/20 07:23 Oxygen Flow Rate 0 08/07/20 07:23 Pain Level 0 08/07/20 07:23 Comment 08/01/20 15:27 Intake & Output 08/06/20 08/06/20 08/07/20 11:59 23:59 11:59 Intake Total 1060 / 1690 630 / 1690 1000 / 1000 Output Total 880 / 1380 500 / 1380 1200 / 1200 Balance 180 / 310 130 / 310 -200 / -200 Intake: IV 520 / 550 30 / 550 520 / 520 Oral 540 / 1140 600 / 1140 480 / 480 Output: Output, Wound Vac (mls) 0 / 0 Urine 880 / 1380 500 / 1380 1200 / 1200 Other: Urine Color Yellow Yellow Yellow Urine Appearance Clear Clear Clear Urine Odor Normal Normal Normal Stool Size Moderate Stool Characteristics Soft Formed Voiding Methods Urinal Urinal Urinal [facility] Medical History (Updated 07/28/20 @ 14:07 by David Raman MD) Adult BMI > 30 ASCVD (arteriosclerotic cardiovascular disease) (07/28/17) NSTEMI with HFrEF 07/11/2017 s/p MADONNA [place]AD [place]14[place] [facility] [place]us of foot I advised to purchase pumice stone and gentle smooth out the surface of the callus. Chronic HFrEF (heart failure with reduced ejection fraction) (07/20/18) LVEF 30-35% on index presentation improved to 50% on f/u echo Conductive hearing loss (07/06/13) Depression (11/25/11) Diabetic foot ulcer Elevated ferritin level (10/20/17) Erectile dysfunction (07/06/13) Essential hypertension (07/06/13) Gastroesophageal reflux disease Hyperlipidemia (07/06/13) 11/2017 labwork: 10-year ASCVD risk = ~6.1% --> continue current high intensity statin therapy (h/o ASCVD) Hyperuricemia Hypomagnesemia Microalbuminuria Noncompliance with medication regimen (07/06/13) Nonproliferative diabetic retinopathy NSTEMI (non-ST elevated myocardial infarction) (07/11/17) 06/2017: S/[place]ADONNA to [place] [facility] [place] Will require DAPT for a minimum of 1 year Obstructive sleep apnea, adult (10/31/14) Severe, C-pap, Dr. Almeida continue on CPAP therapy with mask of choice,heated humidification and ramp. pressure should be set at 12 cm/H2o,alternatively auto CPAP 8-14 cm/H2O can be used. (sleep study note cameron Pulmonary hypertension (07/14/17) 07/14/17 mild pulm hypertension, mild pulm capillary wedge pressure, elevated left ventricular end diastolic pressure, one vessel CAD-LAD w/ stent oinsertion Restless leg syndrome (10/31/14) Per Sleep Lab Dr. Bui Sensorineural hearing loss, bilateral (11/24/17) Tubular adenoma of colon (10/18/14) Type 2 diabetes mellitus with retinopathy, with long-term current use of insulin (10/27/17) Surgical History Cholecystectomy Colonoscopy - IV Sedation (10/14/14) tubular adenoma Dr. Blancas S/P coronary artery stent placement s/p MADONNA to LAD mid 2; Dr. Fercho Eddy, [facility], 07/14/2017 Family History Mother Essential hypertension Father Lung cancer Social History Smoking/Tobacco Use Status: Never Alcohol Intake: never Drug use: Never Substance use type: does not use Household members: spouse Housing: apartment Number of Children: 1 Communication Needs: None 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 lead driver: No Do you feel safe at home: Yes Do you feel safe in your relationship?: Yes
--- NOTE | 2020-08-07 13:29 | PDOC.CMDIS ---
- If Service Date Differs Date of service: 08/07/20 Time of Service: 13:29 LACE Index Scoring Tool - Questions: Length of Stay (in days): 14 or more Acuity (Admit via E.D.?): Yes Comorbidities: Previous M.I., Diabetes w/o Complication, Congestive Heart Failure E.D. Visits: 5 - Answers: Total Score: 19 Risk of Readmission: High Risk Care Management Discharge Reason for Hospitalization: Diabetic foot ulcer Discharge Plan: Edward will be discharged home with new home health nursing. He has a single use wound vac device (Elias) which will be followed ny . He will follow up with Dr. Valencia, his provider and discharge plan of care and transport home with his sister. Patient/Family Education Needs: Discharge plan, limitations, follow up plan and Ask Me Three. Services Needed at Discharge: Home Health Care Services
--- NOTE | 2020-08-07 13:37 | PDOC.HHF2F_ITS ---
Home Health Certification Home Health Certification: 1. Encounter Date and Reason I certify that DANAY HAHN was seen by Yessy Vizcarra on 08/07/20 and that I had a [id number] encounter with this patient that meets the physician face to face encounter requirements. 2. Clinical Findings Supporting Skilled Need and Homebound Status I certify that home health services are medically necessary, include either intermittent half-way and/or physical/speech therapy, and that this patie nt is homebound in that absences from the home require considerable and taxing effort and are infrequent or of short duration, or are attributable to the need to receive medical care. [X] (a) Attached documentation from encounter provides clinical findings supporting skilled need and homebound status (including what assistance patient requires to leave the home). The encounter with the patient was in whole, or in part, for the following medical condition, which is the primary reason for home health care: STREPTOCOCCAL BACTEREMIA Care Home: routine nursing care, medication oversight, wound care, diabetes management. KIRT wound system with weekly and prn changes. please use wet to dry dressing if system fails and arrange follow up with Dr Valencia. Homebound: patient is unable to safely leave home as ambulation is impaired d/t foot wound and wound vac system, weight restriction on right foot. 3. Certification and Authentication I certify that I composed the above information based on my clinical judgment relating to this patient's medical condition and, if applicable, clinical findings communicated to me by the NPP or inpatient physician who performed the Home Health Referral. All further orders will be obtained through (Community Based Physician - PCP)
--- NOTE | 2020-08-08 18:20 | INDS_ITS ---
Date of service: 08/08/20 PT Notes Visit Reasons: STREPTOCOCCAL BACTEREMIA PT Inpatient Physical Discharge Summary Date: 08/08/20 Dates of Service: 07/29/2020 through 08/05/2020 Referring Doctor: Charles Valencia DPM PT Orders: PT CONSULT: Assess and assist with mobility Precautions: No WB ball of right foot, heel touch with surgical shoe, wound vac to be applied today Patient Profile/Admitting Diagnosis: Bactermia, diabetic foot ulcer, Type 2 diabetes mellitus with hyperglycemia, essential hypertension PMHX: Adult BMI > 30 (Chronic) ASCVD (arteriosclerotic cardiovascular disease) (Chronic 07/28/17) NSTEMI with HFrEF 07/11/2017 s/[place] MADONNA [place]AD [place]14[place] [facility] [place] Callus of foot (Chronic) I advised to purchase pumice stone and gentle smooth out the surface of the callus. Chronic HFrEF (heart failure with reduced ejection fraction) (Chronic 07/20/18) LVEF 30-35% on index presentation improved to 50% on f/u echo Conductive hearing loss (Chronic 07/06/13) Depression (Chronic 11/25/11) Diabetic foot ulcer (Acute) Elevated ferritin level (Chronic 10/20/17) Erectile dysfunction (Chronic 07/06/13) Essential hypertension (Chronic 07/06/13) Gastroesophageal reflux disease (Chronic) Hyperlipidemia (Chronic 07/06/13) 11/2017 labwork: 10-year ASCVD risk = ~6.1% --> continue current high intensity statin therapy (h/o ASCVD) Hyperuricemia (Inactive) Hypomagnesemia (Acute) Microalbuminuria (Chronic) Noncompliance with medication regimen (Chronic 07/06/13) Nonproliferative diabetic retinopathy (Chronic) NSTEMI (non-ST elevated myocardial infarction) (Inactive 07/11/17) 06/2017: S/p MADONNA to [place]AD [place] [facility] [place] Will require DAPT for a minimum of 1 year Obstructive sleep apnea, adult (Chronic 10/31/14) Severe, C-pap, Dr. Almeida continue on CPAP therapy with mask of choice,heated humidification and ramp. pressure should be set at 12 cm/H2o,alternatively auto CPAP 8-14 cm/H2O can be used. (sleep study note cameron Pulmonary hypertension (Chronic 07/14/17) 07/14/17 mild pulm hypertension, mild pulm capillary wedge pressure, elevated left ventricular end diastolic pressure, one vessel CAD-LAD w/ stent oinsertion Restless leg syndrome (Chronic 10/31/14) Per Sleep Lab Dr. 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 Objective: General Observation: Wound vac on R foot Mental Status: Alert and oriented x 4 Pain: 0/10 ROM: Right Upper Extremity: WNL Left Upper Extremity: WNL Right Lower Extremity: impaired ankle DF, otherwise WNL Left Lower Extremity: WNL Strength: Right Upper Extremity: Shoulder flexion 4+/5, Shoulder ER 4/5, otherwise WNL Left Upper Extremity: Shoulder ER 4/5, otherwise WNL Right Lower Extremity: ankle DF 4/5, otherwise WNL Left Lower Extremity: WNL Sensation: Reduced on sole of R foot Bed Mobility/Transfers: Independent Gait: Modified independent using front wheeled walker with a right heel WB for 250 feet with no SOB, LOB nor pain complaint. Balance: Static Sitting: Normal Dynamic Sitting: Normal Static Standing: Good Dynamic Standing: Fair Assessment: Edward demonstrates ability improved during this episode of care and is discharged notified and intact walker level today. Patient is a 54 year old male referred to physical therapy services with the diagnosis of diabetic foot ulcer. He underwent wound debridment on 07/25/20 for diabetic wound of right second metatarsal head. Culture came back positive for C streptococcus and MSSA. Goals: Goals x1 week 1. Gait - ambulate 50ft with FWW and maintaining precautions MET 2. Stairs - be able to perform 4 steps safely with step to gait MET 3. Independent with home exercise program MET DISCHARGE RECOMMENDATIONS: Home with FWW. TREATMENT CODE/TIME: [id number] x 27-minute beginning at 11:15 AM. Thank you for the opportunity to participate in the care of this patient. Janet Lopez PT, DPT, CLT [facility] [place], [place]
== END 2020-08-07 13:42 | disposition home health service (06) | DRG 638 ==
PROVIDERS: Family Medicine; Internal Medicine; Nurse Practitioner Family; Podiatrist; Admitting Provider Family Medicine; PCP Nurse Practitioner Family; Visit Provider Family Medicine
DX: E11.621 Type 2 diabetes mellitus with foot ulcer (principal); R78.81 Bacteremia; I50.22 Chronic systolic (congestive) heart failure; Z79.2 Long term (current) use of antibiotics; L97.519 Non-pressure chronic ulcer of other part of right foot with unspecified severity; Z97.8 Presence of other specified devices; Z48.01 Encounter for change or removal of surgical wound dressing; I11.0 Hypertensive heart disease with heart failure; E11.65 Type 2 diabetes mellitus with hyperglycemia; Z79.4 Long term (current) use of insulin; B95.4 Other streptococcus as the cause of diseases classified elsewhere; B95.61 Methicillin susceptible Staphylococcus aureus infection as the cause of diseases classified elsewhere; E11.42 Type 2 diabetes mellitus with diabetic polyneuropathy; K21.9 Gastro-esophageal reflux disease without esophagitis; E78.5 Hyperlipidemia, unspecified; Z71.3 Dietary counseling and surveillance; Z68.34 Body mass index [BMI] 34.0-34.9, adult
CPT/HCPCS: 36410; 36415; 80048; 85027; 90686; 97162; 97530; 99226; 99305; 99308; 99309; 99316; 86140; 87324; J1644

== ENCOUNTER 2020-08-26 00:50 | Outpatient (CLI) | payer MEDICAID, SELFPAY ==
[2020-08-26] MEDS: Gadoterate meglumine 20 ML VIAL IVP (10:47)
--- NOTE | 2020-08-26 11:15 | DI.MRI_ITS ---
EXAM: MR LOWER EXTREMITY RT WO/W CLINICAL HISTORY: DIABETIC ULCER,? OSTEOMYELITIS 2-3 MPJ. TECHNIQUE: Multiplanar multisequence MRI was performed. COMPARISON: MR MR LOWER EXTREMITY RT WO/W from 07/24/2020 FINDINGS: MR examination of the forefoot was obtained according to the usual protocol with additional pre and p ost contrast T1 fat sat imaging. Patient reportedly has a chronic diabetic ulcer at 2nd to 3rd MTP region. There is abnormal marrow signal involving the heads of the 2nd and 3rd metatarsal and the proximal ph alanges of the 2nd and 3rd toes. There is also marrow enhancement involving these bones. No additio nal bony involvement seen in the forefoot. There is increased signal on T2 weighted imaging and enhancement in the region surrounding the 2nd an d 3rd MTP joints. There is a roughly 21 x 11 x 3 millimeter in diameter nonenhancing fluid collectio n with enhancing rim consistent with abscess which lies between heads of the 2nd and 3rd metatarsals and the bases of the proximal phalanges of the 2nd and 3rd toes. No additional convincing abscess id entified. Ligaments and tendons of the forefoot as visualized appear grossly intact. Motion artifact causes so me decrease in visualization of the anatomy. IMPRESSION: Findings suggesting osteomyelitis of the heads of the 2nd and 3rd metatarsals, extending to the mid d iaphysis, and osteomyelitis of the proximal phalanges of the 2nd and 3rd toes. There is a presumed a bscess associated with the inter metatarsal head region at this 2/3 metatarsal level extending adjace nt to bases of the proximal phalanges of the 2nd and 3rd toes. DATA REPOSITORY:
== END 2020-08-26 01:10 ==
PROVIDERS: PCP Nurse Practitioner Family; Visit Provider Podiatrist
DX: E11.621 Type 2 diabetes mellitus with foot ulcer (principal); L97.418 Non-pressure chronic ulcer of right heel and midfoot with other specified severity
CPT/HCPCS: 73720

== ENCOUNTER 2020-08-26 12:22 | Outpatient (CLI) | payer MEDICAID, SELFPAY ==
--- NOTE | 2020-08-26 13:00 | NS.NUTBLAN_ITS ---
ASSESSMENT: Edward Presents w/ insulin dependent DM for a CGM placement ( freestyle maynor) to help with BG tracking and trends to help facilitate optimum TIR. This RD met with this patient during recent hospital stay and he received basic DM edu and literature. He then arranged fo outpatient appointment to place his new CGM and receive teaching on set up and use. He is currently on 35units u-500 am, w/ 20 units Lantus. He uses sliding scale for preprandial novolg ~ 3-5 units per meal period. He was at [facility] to day for R foot cellulitis. He states that he has made diet changes and has been trying to keep his CHO's to minimum levels. <60g per meal period was the recommendation upon recent inpatient discharge. He came to this appointment with thorough BG record for one week. Mostly in good ranges for PWD with one postprandial at 266mg/dl. Noted: patient has hx numerical and alphabetical illiteracy per this RD's consultation with his previous CDE. He reports that he has been feeling fine and when denied any episodes hypoglycemia. when asked what he would do in a hypoglycemic event he produced some hard candies from his pocket.Edward seems motivated to use some self management techniques to the best of his ability as evidenced by his attempts at record keeping, reported CHO control and willingness to try out CGM option. INTERVENTION: Reviewed video and written directions for placement of CGM with patient. Explained the interstitial fluid vs blood glucose differences in readings. Edward was able to place the device and understood that he would wait one hour in order to wand it over his arm to obtain readings. We reviewed food choices and set goal to reduce -500 with MD approval. Advised Edward where he could get additional adhesives for the device. Provided 2 transparent surgical bandages to help w/ adhesion. Noted: when escorting Edward back to the lobby he felt he had to stop and c/o potential hypoglycemia. He stated he did not have lunch, (14:15) at that time. Provided snacks and and stayed with him in lob (~ 10 min) until he felt he could ambulate and stated he felt better. Sister was there to pick him up and I asked her to get him some food and beverage FAUSTINO. Called Edward the next day to ask how things were and he stated the device was giving low readings of 77 and 55 mg/dl and then device showed low status. Contacted nurse CDE at [facility] and we agreed he is on too much u-500. She is currently arranging for an acute visit today at [facility] to help w/ hypoglycemia and adjust insulin dose. PLAN: This RD will F/U with nurse CDE at [facility] to verify outcomes. Edward will be returning to [facility] for re-assessment and CGM data analysis to fine tune his nutrient timing, review insulin regimen and replace CGM transmitter for reiterating placement technique and to promote self management.
== END 2020-08-26 12:42 ==
PROVIDERS: PCP Nurse Practitioner Family; Visit Provider Nurse Practitioner Family
DX: E11.9 Type 2 diabetes mellitus without complications (principal); Z79.4 Long term (current) use of insulin; Z71.3 Dietary counseling and surveillance
CPT/HCPCS: 97802

== ENCOUNTER 2020-08-29 07:49 | Outpatient (CLI) | payer MEDICAID, SELFPAY ==
[2020-08-31 12:40] LABS: COVID-19 RT-PCR Result NEGATIVE (Negative)
== END 2020-08-29 08:09 ==
PROVIDERS: PCP Nurse Practitioner Family; Visit Provider Podiatrist
DX: Z11.59 Encounter for screening for other viral diseases (principal); Z01.818 Encounter for other preprocedural examination
CPT/HCPCS: U0003

== ENCOUNTER 2020-09-03 10:27 | Inpatient (IN) | payer MEDICAID, SELFPAY ==
[2020-09-03 10:38] VITALS: BP 113/79; PULSE 85; RESP 16; TEMP 36.1; O2SAT 98
[2020-09-03] MEDS: Lactated Ringers 1,000 ML 80 ML IV ×2 (11:39→23:29)
[2020-09-03] MEDS: CLINDAMYCIN 600 MG/50 ML BAG 100 MG IVPB (12:51)
[2020-09-03] MEDS: Bupivacaine 0.5% Pres-Free 30 ML VIAL (13:19)
[2020-09-03] MEDS: Lidocaine 1% Multi-Dose 50 ML VIAL (13:19)
--- NOTE | 2020-09-03 13:30 | BONE_PTH ---
PATIENT: Ganesh Tang JR LOC: U#:[id number] AGE/SX: 54/M ROOM: MS.205 RE09/03/[address]: Ivory Yoon : 1965 BED: A DIS: 09/08/2020 SPEC #: [id number] RECD: 09/03/20 17:00 STATUS: LUL REQ #: [id number] RADHA: 09/03/20 13:[address]: Charles Valencia DEPT: Surgical Specimen RECD BY: Lyla Jerez ENTERED: 09/03/20 17:02 SP TYPE: Bone OTHR DR: Camilla Sherman APRN Tissues: 1 - BONE BX/CURRETTE NOT PATH FRACTURE 2 - BONE BX/CURRETTE NOT PATH FRACTURE Procedures: GROSS AND MICRO LEVEL 4 DECALCIFICATION Comments: [id number]
--- NOTE | 2020-09-03 14:41 | W.PM.OP ---
Date of service: 09/03/20 Time of Service: 14:42 Operative Note Operative Note DATE OF PROCEDURE: 09/03/20 PRE-OP DIAGNOSIS: Osteomyelitis second and third MPJs right foot PROCEDURE: Debridement right foot removing infected bone including the second and third metatarsal phalangeal joint ANESTHESIA: GETA ESTIMATED BLOOD LOSS: 3 PATHOLOGY: other TOURNIQUET TIME: 72 COMPLICATIONS: None Patient was transported to: floor Patient's condition: stable Implants: Stimulan peads with tobramycin 1.2 g Indications: 54-year-old male with poorly controlled diabetes history of diabetic ulceration on the right forefoot with abscess progressing to osteomyelitis affecting the second and third rays, MPJs. He has failed outpatient management with oral antibiotics. Procedure Description: Ganesh was brought to the operative suite placed in supine position with a right foot prepped and draped in the usual sterile podiatric fashion. Anesthesia was obtained via local block of the right ankle consisting of 20 cc 50-50 mixture 1% lidocaine plain, 0.5% Marcaine plain. And anesthesia are assessed. The right foot was exsanguinated well-padded ankle tourniquet inflated 250 mmHg. Attention was directed to the second intermetatarsal space where a 5 cm incision was made ending at the metatarsal phalangeal joints. A lazy S was then extended onto the second toe ending at the midportion of the proximal phalanx. The incision was deepened in controlled depth with hemostasis being acquired with electrocautery. Dissection was carried down to the second metatarsal phalangeal joint utilizing blunt dissection. The second MPJ was incised please note there was no gross purulence but the tissues had a grayish appearance and did not have that nice healthy white pearly appearance that one would expect. The excessive capsule and grayish material was resected sharp. A McGlamry metatarsal elevator was then inserted through the second metatarsal phalangeal joint and the second metatarsal head delivered into the wound. The head appeared somewhat thin and grayish in appearance particularly along its lateral aspect with power instrumentation the head was resected at its anatomic neck. This bone was removed from the field the base of the proximal phalanx was also resected and removed from the field. Biopsies of the head were obtained for microbiology and the bone was sent to pathology for gross ID and evaluation. Dissection was now performed laterally through the same incision going over to the third MPJ level. The third MPJ was then incised and once again the head of the metatarsal delivered into the wound utilizing a McGlamry metatarsal elevator. No dave purulence was identified. The third metatarsal head was then resected at its anatomic neck. The bone appeared hard and healthy at this level and appeared to maintain a decent metatarsal parabola. The base of the third proximal phalanx was now resected the head and base was sent to pathology and its on identified cup for evaluation. Please note I did take a couple of bony pieces from the head of the third metatarsal placed that in the same cup as the sample of the second metatarsal and sent that out for microbiology cultures and sensitivities. The wound was copiously irrigated and no additional necrotic tissue or signs of infection were evident. Stimulant antibiotic beads utilizing 1.2 g of tobramycin was then mixed formed and implanted into the second and third metatarsal phalangeal joint spaces. This was subsequently closed with the overlying soft tissues 3-0 Vicryl closing the joint capsules followed by 4-0 Vicryl for the subcutaneous tissues and 4-0 nylon to coapt the skin. Xeroform gauze fluff compression dressings were applied. Tourniquet was released at approximately 73 minutes with vascularity returning immediately to all toes. Edward left the OR with vital signs stable vascular status intact and will remain in house for IV antibiotics and wound care.
--- NOTE | 2020-09-03 14:49 | W.PM.HP.N ---
Date of service: 09/03/20 Time of Service: 14:59 Assessment and Plan Assessment and plan (1) Osteomyelitis: Status: Acute Assessment and plan: resected in OR today by Dr Valencia, tobramycin antibiotic beads placed. biopsies pending. plan 6 weeks of antibiotics, ceftriaxone [address] PICC line follow weekly labs with baseline scheduled for tomorrow. (2) Type 2 diabetes mellitus with hyperglycemia, with long-term current use of insulin: Status: Chronic Assessment and plan: will continue carb consistent diet, sliding scale coverage ac/hs. diabetic education was having low blood sugars outpatient and U500 was discontinued. will continue lantus only, adjust as needed. (3) Chronic systolic CHF (congestive heart failure): Status: Chronic Assessment and plan: stable, continue spironalactone, lisinopril and beta tish. echo 07/24/20 Estimated ejection fraction is 40 to 45%. The inferior and posterior guzman are hypocontractile. Findings are similar to prior echocardiogram from 2019. LV function has improved compared to 2017. No valvular vegetations identified (4) Gastroesophageal reflux disease: Status: Chronic Assessment and plan: continue PPI (5) Essential hypertension: Status: Chronic Assessment and plan: stable, continue lisinopril and metoprolol and monitor. History of Present Illness History of Present Illness Chief Complaint: osteomyelitis Narrative: This is a 54 year old male with poorly controlled diabetes, recent diabetic foot infection with bacteremia, strep c, wound grew staph and strep c, followed by Dr Valencia from podiatry. admitted to med/surg following resection for now osteomyelitis confirmed by MRI. He will need 6 weeks of IV antibiotics. Review of Systems Constitutional Constitutional: Denies fever(s) and Denies weakness Cardiovascular Cardiovascular: Denies chest pain and Denies dyspnea Respiratory Respiratory: Denies cough and Denies dyspnea Gastrointestinal Gastrointestinal: Denies abdominal pain, Denies diarrhea, Denies nausea and Denies vomiting Integumentary/Breasts Skin/Breast: Reports lesions and Reports rash Neurologic Neurologic: Denies weakness [facility] Medical History (Updated 09/03/20 @ 15:03 by Yessy Vizcarra NP) Adult BMI > 30 ASCVD (arteriosclerotic cardiovascular disease) (07/28/17) NSTEMI with HFrEF 07/11/2017 s/p MADONNA to [place]AD [place] 07[place]14[place]2017 [place] [facility] Callus of foot I advised to purchase pumice stone and gentle smooth out the surface of the callus. Chronic HFrEF (heart failure with reduced ejection fraction) (07/20/18) LVEF 30-35% on index presentation improved to 50% on f/u echo Conductive hearing loss (07/06/13) Depression (11/25/11) Diabetic foot ulcer Elevated ferritin level (10/20/17) Erectile dysfunction (07/06/13) Essential hypertension (07/06/13) Gastroesophageal reflux disease Hyperlipidemia (07/06/13) 11/2017 labwork: 10-year ASCVD risk = ~6.1% --> continue current high intensity statin therapy (h/o ASCVD) Hyperuricemia Hypomagnesemia Microalbuminuria Noncompliance with medication regimen (07/06/13) Nonproliferative diabetic retinopathy NSTEMI (non-ST elevated myocardial infarction) (07/11/17) 06/2017: S/p MADONNA to mLAD [place] [facility] Will require DAPT for a minimum of 1 year Obstructive sleep apnea, adult (10/31/14) Pt. states he has not been using device 09/01/20 Severe, C-pap, Dr. Almeida continue on CPAP therapy with mask of choice,heated humidification and ramp. pressure should be set at 12 cm/H2o,alternatively auto CPAP 8-14 cm/H2O can be used. (sleep study note cameron Pulmonary hypertension (07/14/17) 07/14/17 mild pulm hypertension, mild pulm capillary wedge pressure, elevated left ventricular end diastolic pressure, one vessel CAD-LAD w/ stent oinsertion Restless leg syndrome (10/31/14) Per Sleep Lab Dr. Bui Sensorineural hearing loss, bilateral (11/24/17) Tubular adenoma of colon (10/18/14) Type 2 diabetes mellitus with retinopathy, with long-term current use of insulin (10/27/17) Surgical History Cholecystectomy Colonoscopy - IV Sedation (10/14/14) tubular adenoma Dr. Blancas S/P coronary artery stent placement s/p MADONNA to LAD mid 2; Dr. Fercho Eddy, [facility], 07/14/2017 Family History Mother Essential hypertension Father Lung cancer Social History Smoking/Tobacco Use Status: Never Alcohol Intake: never Drug use: Never Substance use type: does not use Household members: spouse Housing: apartment Number of Children: 1 Communication Needs: None 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 livery car driver: No Do you feel safe at home: Yes Do you feel safe in your relationship?: Yes Meds Home Medications and Allergies Home Medications Medication Instructions Recorded Confirmed Type pen needle, diabetic #300 03/02/18 09/01/20 History nitroglycerin 0.4 mg sublingual 0.4 mg SL Q5M PRN #30 tab-cap MDD 01/08/19 09/03/20 Rx tablet 3 doses flash glucose sensor #1 each 05/03/19 09/01/20 Rx blood sugar diagnostic #400 each 06/22/19 09/01/20 Rx lisinopril 5 mg tablet 5 mg PO DAILY #90 tab-cap 10/04/19 09/03/20 Rx metoprolol succinate 100 mg 150 mg PO DAILY #135 tab-cap 10/04/19 09/03/20 Rx tablet,extended release 24 hr ammonium lactate 12 % topical cream 1 applic TP QD-BID PRN #140 gm 10/19/19 09/03/20 Rx triamcinolone acetonide 0.5 % 1 applic TP .BID-QID #15 gm 10/19/19 09/03/20 Rx topical cream rosuvastatin 40 mg tablet 40 mg PO HS #90 tab-cap 11/22/19 09/03/20 Rx aspirin 81 mg chewable tablet 81 mg PO DAILY #90 tab-cap 02/06/20 09/03/20 Rx magnesium oxide 400 mg (241.3 mg 400 mg PO DAILY #90 tab-cap 02/06/20 09/03/20 Rx magnesium) tablet metformin 1,000 mg tablet 1,000 mg PO BID #180 tab-cap 02/07/20 09/03/20 Rx lancets #400 each 04/24/20 09/01/20 Rx spironolactone 25 mg tablet 12.5 mg PO DAILY #45 tab-cap 04/25/20 09/03/20 Rx sertraline 100 mg tablet 200 mg PO DAILY #180 tab-cap 06/05/20 09/03/20 Rx insulin regular hum U-500 conc See Rx Instructions SC BID #6 ml 07/21/20 09/03/20 Rx alcohol swabs 1 pad TOPICAL QID #400 ea 08/08/20 09/03/20 Rx empagliflozin 25 mg tablet 25 mg PO DAILY #90 tab-cap 08/08/20 09/03/20 Rx clopidogrel 75 mg tablet 75 mg PO DAILY #90 tab 08/11/20 09/01/20 Rx pantoprazole 40 mg tablet,delayed 40 mg PO QAM #90 tab-cap 08/11/20 09/03/20 Rx release insulin aspart U-100 100 unit/mL See Rx Instructions SUBCUT AC #15 08/14/20 09/03/20 Rx (3 mL) subcutaneous pen ml flash glucose scanning reader #1 ea 08/18/20 09/01/20 Rx flash glucose sensor #6 ea 08/18/20 09/01/20 Rx insulin glargine [Lantus Solostar 2 unit SUBCUT HS 09/01/20 09/03/20 History U-100 Insulin] sulfamethoxazole-trimethoprim 1 tab PO BID 09/01/20 09/03/20 History Allergies Allergy/AdvReac Type Severity Reaction Status Date / Time bee venom protein (honey bee) Allergy Severe Swelling/Ed Verified 09/03/20 10:46 capri Penicillins Allergy Unknown Rash Verified 09/03/20 10:46 shellfish derived Allergy Unknown Rash; Verified 09/03/20 10:46 swelling Exam Const General: cooperative, comfortable, no acute distress and ill appearing chronically Nutritional Appearance: overweight Orientation: alert, awake and oriented x3 HENMT Head: normal to inspection, normocephalic and atraumatic Mouth: oral mucosae normal Chest Chest: normal inspection of the chest Resp Effort & Inspection: normal respiratory effort Auscultation: clear to auscultation bilaterally Cardio Rate: regular rate Rhythm: regular rhythm GI Inspection: normal to inspection Palpation: soft Auscultation: normal bowel sounds Skin Lesions: other (dressing intact, no proximal erythema beyond dressing) Rashes: no rashes Neuro General: patient alert, patient awake and patient oriented x3 Extrem General: no pedal edema Results Last Vital Signs Temp 36.1 C L 09/03/20 10:38 Pulse 85 09/03/20 10:38 Resp 16 09/03/20 10:38 BP 113/79 09/03/20 10:38 Pulse Ox 98 09/03/20 10:38 COVID-19 Screening Have you,or household,traveled outside [place] in last 14 days?: No Had IN PERSON contact w/suspected or confirmed C-19 person: No
[2020-09-03 15:19] VITALS: BP 101/70; PULSE 74; RESP 18; TEMP 36.4; O2SAT 94
[2020-09-03] MEDS: cefTRIAXone 2 GM/50 ML BAG IVPB (16:31)
[2020-09-03] MEDS: Normal Saline Flush 10 ML SYR IVP (16:32)
[2020-09-03] MEDS: Normal Saline Flush 10 ML SYR IV (17:56)
[2020-09-03] MEDS: ROSUVASTATIN 20 MG TAB 40 MG PO (21:33)
[2020-09-03 23:25] VITALS: BP 102/61; PULSE 99; RESP 20; TEMP 37.4; O2SAT 96
[2020-09-04] MEDS: Acetaminophen 325 MG TAB 650 MG PO ×2 (02:13→21:56)
[2020-09-04 07:46] VITALS: BP 116/76; PULSE 90; RESP 16; TEMP 36.7; O2SAT 96
[2020-09-04 07:53] LABS: Abs Immature Grans 0.02 10^3/uL (0.0-0.06); Absolute Basophil Count 0.04 10^3/uL (0.0-0.2); Absolute Eosinophil Count 0.29 10^3/uL (0.0-0.7); Absolute Lymphocyte Count 1.45 10^3/uL (1.2-3.4); Absolute Monocyte Count 0.58 10^3/uL (0.1-0.8); Basophils % 0.6; Eosinophils % 4.2; HCT 36.5 % (40.0-50.0); HGB 12.4 g/dL (13.5-17.5); Immature Grans % 0.3; Lymphocytes % 21.1; MCH 29.5 pg (27.0-33.0); MCV 86.9 fL (80-95); MPV 9.1 fL (8.0-11.0); Monocytes % 8.4; Neutrophils % 65.4; Nucleated RBC 0 %; Platelet Count 201 10^3/uL (130-400); RDW 13.4 % (11.8-14.1); RDW-SD 42.5 fL; WBC 6.88 10^3/uL (4.4-10.8)
[2020-09-04 08:22] LABS: ALT 23 U/L (16-63); AST 19 U/L (15-37); Albumin 3.3 g/dL (3.4-5.0); Alkaline Phosphatase 77 U/L (46-116); Anion Gap 9.8 mmol/L (3-11); BUN 20 mg/dL (7-18); Bilirubin, Total 0.7 mg/dL (0.2-1.0); C-Reactive Protein 2.21 mg/dL (0.0-0.3); CO2 25.2 mmol/L (21.0-32.0); CREATININE 1.02 mg/dL (0.70-1.30); Calcium 8.9 mg/dL (8.5-10.1); Chloride 100 mmol/L (98-107); Glucose 145 mg/dL (74-106); Potassium 4.1 mmol/L (3.5-5.1); Sodium 135 mmol/L (136-145); Total Protein 6.6 g/dL (6.4-8.2)
[2020-09-04] MEDS: Spironolactone 25 MG TAB 12.5 MG PO (08:34)
[2020-09-04] MEDS: Metoprolol CR 50 MG TABCR 150 MG PO (08:35)
[2020-09-04] MEDS: Sertraline 50 MG TAB 200 MG PO (08:36)
[2020-09-04] MEDS: Clopidogrel 75 MG TAB PO (08:36)
[2020-09-04] MEDS: Magnesium Oxide 400 MG TAB PO (08:36)
[2020-09-04] MEDS: Aspirin 81 MG CHEW PO (08:37)
[2020-09-04] MEDS: Lisinopril 5 MG TAB PO (08:37)
[2020-09-04] MEDS: Pantoprazole 40 MG TABCR PO (08:37)
[2020-09-04] MEDS: Insulin Aspart 300 UNITS/3 ML PEN SC ×3 (08:37→17:06)
[2020-09-04 10:10] LABS: ESR 28 mm/hr (1-20)
--- NOTE | 2020-09-04 11:32 | INITIAL_ITS ---
- If Service Date Differs Date of service: 09/04/20 Time of Service: 11:32 Care Management Initial Assess REASON FOR HOSPITALIZATION:: Osteomyelitis status post resection of the second and third metatarsal joint PAST MEDICAL HISTORY/PAST SURGICAL HISTORY:: Medical History: Hyperuricemia (Inactive). Adult BMI > 30 (Chronic). Microalbuminuria (Chronic). Callus of foot (Chronic). Type 2 diabetes mellitus with retinopathy, with long-term current use of insulin (Chronic 10/27/17). Tubular adenoma of colon (Inactive 10/18/14). Sensorineural hearing loss, bilateral (Chronic 11/24/17). Restless leg syndrome (Chronic 10/31/14). Pulmonary hypertension (Chronic 07/14/17). Obstructive sleep apnea, adult (Chronic 10/31/14). Nonproliferative diabetic retinopathy (Chronic). Noncompliance with medication regimen (Chronic 07/06/13). NSTEMI (non-ST elevated myocardial infarction) (Inactive 07/11/17). Hyperlipidemia (Chronic 07/06/13). Erectile dysfunction (Chronic 07/06/13). Essential hypertension (Chronic 07/06/13). Elevated ferritin level (Chronic 10/20/17). Depression (Chronic 11/25/11). Conductive hearing loss (Chronic 07/06/13). Chronic HFrEF (heart failure with reduced ejection fraction) (Chronic 07/20/18). ASCVD (arteriosclerotic cardiovascular disease) (Chronic 07/28/17). Surgical History: S/P coronary artery stent placement (Inactive). Cholecystectomy (Resolved). Colonoscopy - IV Sedation (Resolved 10/14/14) PREVIOUS FUNCTIONAL STATUS/SOCIAL/FAMILY SUPPORTS:: Edward lives with his spouse here in [place], he has been out of work related to his foot ulcer. He is applying for disability with the help of [facility]. Edward's spouse is Candy he has one son who lives in [place]. He is independent with ADL's and transportation. Edward has a limited ability to read and write, he learns well by demonstration and verbal teaching. CURRENT FUNCTIONAL STATUS:: Edward is alert during assessment he is engaged with CM and answers all questions appropiately. ADVANCE DIRECTIVES:: On file agent is Candy Has patient been provided with info about the portal/API?: Yes Did the patient sign up for the portal?: No CODE STATUS:: Full Code INSURANCE COVERAGE / FINANCIAL ISSUES:: Medicaid CURRENT HOME/COMMUNITY SERVICES/EQUIPMENT:: Home Health Nursing. PRIMARY CARE PHYSICIAN:: Camilla Sherman POTENTIAL DISCHARGE NEEDS:: Edward will need 6 weeks of IV abx, he would prefer to stay at [facility] for treatment. He will need close follow up after discharge with provider, podiatry, and DM educator. PATIENT/FAMILY EDUCATION NEEDS:: Discharge education, limitations and follow up plan of care including ask me three and self management. ANTICIPATED BARRIERS TO DISCHARGE:: None TRANSPORTATION:: Via private car with family at time of discharge PLAN:: Edward is acute today he will likely transition to swing bed when medically ready. He continues to need adjustment to his insulin due to hypoglycemia. CM will prepare the SB1 paperwork and notify medicaid once the patient is transitioned.
--- NOTE | 2020-09-04 11:46 | PGE_ITS ---
Date of Service Date of service: 09/04/20 Time of Service: 11:47 Assessment and Plan Assessment and plan (1) Osteomyelitis: Status: Acute Assessment and plan: Post op day [address] Valencia, tobramycin antibiotic beads placed. biopsies pending. plan 6 weeks of antibiotics through Oct 15 place PICC line follow weekly labs with baseline scheduled for tomorrow. (2) Type 2 diabetes mellitus with hyperglycemia, with long-term current use of insulin: Status: Chronic Assessment and plan: will continue carb consistent diet, sliding scale coverage ac/hs. diabetic education lantus discontinued for BS 86-170. (3) Chronic systolic CHF (congestive heart failure): Status: Chronic Assessment and plan: stable, continue spironalactone, lisinopril and beta tish. echo 07/24/20 Estimated ejection fraction is 40 to 45%. The inferior and posterior guzman are hypocontractile. Findings are similar to prior echocardiogram from 2019. LV function has improved compared to 2017. No valvular vegetations identified (4) Gastroesophageal reflux disease: Status: Chronic Assessment and plan: continue PPI (5) Essential hypertension: Status: Chronic Assessment and plan: stable, continue lisinopril and metoprolol and monitor. (6) DVT prophylaxis: Status: Acute Assessment and plan: enoxaparin daily Subjective Subjective Patient reports: tolerating liquids well, tolerating a regular diet, flatus and afebrile; denies nausea, vomiting and shortness of breath Interval history since last seen: patient reports he didn't sleep well last night. blood sugars 86-170, HS lantus held. no symptoms of hypoglycemia. Exam Const General: cooperative, comfortable, no acute distress and ill appearing chronically Nutritional Appearance: overweight Orientation: alert, awake and oriented x3 [facility] Head: normal to inspection, normocephalic and atraumatic Mouth: oral mucosae normal Chest Chest: normal inspection of the chest Resp Effort & Inspection: normal respiratory effort Auscultation: clear to auscultation bilaterally Cardio Rate: regular rate Rhythm: regular rhythm GI Inspection: normal to inspection Palpation: soft Auscultation: normal bowel sounds Skin Lesions: other (dressing intact, no proximal erythema beyond dressing) Rashes: no rashes Neuro General: patient alert, patient awake and patient oriented x3 Extrem General: no pedal edema Objective Last Vital Signs Temp 36.7 C 09/04/20 07:46 Pulse 90 10/15/20 07:46 Resp 16 09/04/20 07:46 BP 116/76 09/04/20 07:46 Pulse Ox 96 09/04/20 07:46 Laboratory Results - last 24 hr 09/04/20 09/04/20 07:30 07:30 WBC 6.88 RBC 4.20 L Hgb 12.4 L Hct 36.5 L MCV 86.9 MCH 29.5 MCHC 34.0 RDW 13.4 Plt Count 201 D MPV 9.1 Immature Gran % 0.3 Neutrophils % 65.4 Lymphocytes % 21.1 Monocytes % 8.4 Eosinophils % 4.2 Basophils % 0.6 Nucleated RBC % 0 Absolute Neutrophils 4.50 Absolute Lymphocytes 1.45 Absolute Monocytes 0.58 Absolute Eosinophils 0.29 Absolute Basophils 0.04 ESR 28 H Sodium 135 L Potassium 4.1 Chloride 100 Carbon Dioxide 25.2 Anion Gap 9.8 BUN 20 H Creatinine 1.02 Estimated GFR/1.73 m2 >= 60.00 Glucose 145 H Calcium 8.9 Total Bilirubin 0.7 AST 19 ALT 23 Alkaline Phosphatase 77 C-Reactive Protein 2.21 H Total Protein 6.6 Albumin 3.3 L
--- NOTE | 2020-09-04 14:43 | PHA.REVIEW ---
Pharmacy Admission Review - Admission Clinical Review (Last Reviewed 09/03/20 @ 10:46 by Latasha Garrett) DVT prophylaxis (Acute) Osteomyelitis (Acute) bee venom protein (honey bee) Allergy (Severe, Verified 09/03/20 10:46) Swelling/Edema Penicillins Allergy (Unknown, Verified 09/03/20 10:46) Rash shellfish derived Allergy (Unknown, Verified 09/03/20 10:46) Rash; swelling Height 5 ft 11 in Weight 112.7 kg - Renal Dosing Renal Dosing: BUN 20 mg/dL (7-18) H 09/04/20 07:30 Creatinine 1.02 mg/dL (0.70-1.30) 09/04/20 07:30 Medications needing adjustments: Reviewed - Anticoagulation Anticoagulation: Hgb 12.4 g/dL (13.5-17.5) L 09/04/20 07:30 Hct 36.5 % (40.0-50.0) L 09/04/20 07:30 Plt Count 201 10^3/uL (130-400) D 09/04/20 07:30 Creatinine 1.02 mg/dL (0.70-1.30) 09/04/20 07:30 DVT Prohphylaxis: Reviewed Medications: Enoxaparin - Opiate Usage Evaluate Pain Scale/Pains Meds: N/A - Relevant Labs ESR 28 mm/hr (1-20) H 09/04/20 07:30 Sodium 135 mmol/L (136-145) L 09/04/20 07:30 Potassium 4.1 mmol/L (3.5-5.1) 09/04/20 07:30 Chloride 100 mmol/L (98-107) 09/04/20 07:30 C-Reactive Protein 2.21 mg/dL (0.0-0.3) H 09/04/20 07:30 Electrolytes, C-Reactive P, ESR: Reviewed - DM Control DM Control: Glucose 145 mg/dL (74-106) H 09/04/20 07:30 Finger Stick Blood Glucose 268 Finger Stick Blood Glucose 268 Finger Stick Blood Glucose 170 Finger Stick Blood Glucose 170 Insulin Dosing: Reviewed (aspart plus 15u of glargine at HS (U500 was recently dc'd as outpt due to episodes of hypoglycemia)) - Heart Failure/IL EF%, YVETTE's, B-Blockers, Diuretics: Reviewed (EF 40-45%) - BP Control BP Control: Blood Pressure 116/76 If elevated: Reviewed - Qtc Review If Elevated: N/A - IV to PO Switch IV Medications: Reviewed - Home Meds Home Med List reviewed: Intervened Relevent Home Meds Not ordered & why?: Metformin (insulin protocol ordered); U500 dc'd as outpatient per provider -- discontinued from home med list - Current meds Current Medication Order Review: Reviewed (HS glargine dose cancelled due to slightly low BS reading last night but reordered today to be given in the AM) - Comments Comments/Follow Ups: Ceftriaxone IV x 6 weeks for osteomyelitis -- will most likely swing for tx
[2020-09-04 16:15] VITALS: BP 126/80; PULSE 82; RESP 19; TEMP 36.8; O2SAT 95
[2020-09-04] MEDS: Normal Saline Flush 10 ML SYR IV (16:24)
[2020-09-04] MEDS: cefTRIAXone 2 GM/50 ML BAG IVPB (16:25)
--- NOTE | 2020-09-04 18:19 | W.PM.PROGNOT ---
Date of Service Date of service: 09/04/20 Time of Service: 18:19 Subjective Subjective Patient reports: pain is less Interval history since last seen: Edward is seen resting comfortably in his room. He does indicate that he has a little burning pain in the right foot over the surgical region. He also had difficulty sleeping last night and wonders if he can get something to help. Exam Narrative Exam Narrative: 24 hours status post debridement right foot with resection second and third metatarsal phalangeal joints. Antibiotic beads with tobramycin was inserted intraoperatively. Dressings are removed from the right foot. Some bloody drainage seen on the dressings as expected. The incision is well coapted with simple interrupted suture noted. No active bleeding or drainage is appreciated. He has good capillary return to all toes and his foot is warm to the touch. Calves are soft to palpation no findings of DVT. He is back on his Plavix. The plantar ulceration is healing nicely without signs of active infection. Microbiology Gram stain shows gram-positive cocci sensitivities and ID to follow He did receive his PICC line and is on ceftriaxone 2 g daily. Impressions: Postop day #1 status post debridement second and third metatarsal phalangeal joint with antibiotic beads tobramycin right foot Plan: He is scheduled for 6 weeks of IV ceftriaxone. I will ask nursing to wash the foot every other day with soap and water, Xeroform gauze fluff dressings. He may ambulate as tolerated but he should be encouraged to keep his foot elevated when not ambulating. He should wear his surgical shoe during all weightbearing activities. I appreciate the hospitalist medical management and will continue to round during this admission. Objective Last Vital Signs Temp 36.7 C 09/04/20 07:46 Pulse 90 09/04/20 07:46 Resp 16 09/04/20 07:46 BP 116/76 09/04/20 07:46 Pulse Ox 96 09/04/20 07:46 Laboratory Results - last 24 hr 09/04/20 09/04/20 07:30 07:30 WBC 6.88 RBC 4.20 L Hgb 12.4 L Hct 36.5 L MCV 86.9 MCH 29.5 MCHC 34.0 RDW 13.4 Plt Count 201 D MPV 9.1 Immature Gran % 0.3 Neutrophils % 65.4 Lymphocytes % 21.1 Monocytes % 8.4 Eosinophils % 4.2 Basophils % 0.6 Nucleated RBC % 0 Absolute Neutrophils 4.50 Absolute Lymphocytes 1.45 Absolute Monocytes 0.58 Absolute Eosinophils 0.29 Absolute Basophils 0.04 ESR 28 H Sodium 135 L Potassium 4.1 Chloride 100 Carbon Dioxide 25.2 Anion Gap 9.8 BUN 20 H Creatinine 1.02 Estimated GFR/1.73 m2 >= 60.00 Glucose 145 H Calcium 8.9 Total Bilirubin 0.7 AST 19 ALT 23 Alkaline Phosphatase 77 C-Reactive Protein 2.21 H Total Protein 6.6 Albumin 3.3 L
[2020-09-04] MEDS: Melatonin 3 MG TAB 9 MG PO (21:56)
[2020-09-04] MEDS: ROSUVASTATIN 20 MG TAB 40 MG PO (21:57)
[2020-09-04 23:00] VITALS: BP 105/70; PULSE 78; RESP 17; TEMP 36.7; O2SAT 95
[2020-09-05 08:15] VITALS: BP 111/77; PULSE 76; RESP 18; TEMP 35.7; O2SAT 95
[2020-09-05] MEDS: Magnesium Oxide 400 MG TAB PO (08:46)
[2020-09-05] MEDS: Spironolactone 25 MG TAB 12.5 MG PO (08:46)
[2020-09-05] MEDS: Aspirin 81 MG CHEW PO (08:46)
[2020-09-05] MEDS: Pantoprazole 40 MG TABCR PO (08:47)
[2020-09-05] MEDS: Clopidogrel 75 MG TAB PO (08:48)
[2020-09-05] MEDS: Lisinopril 5 MG TAB PO (08:48)
[2020-09-05] MEDS: Sertraline 50 MG TAB 200 MG PO (08:48)
[2020-09-05] MEDS: Metoprolol CR 50 MG TABCR 150 MG PO (08:49)
[2020-09-05] MEDS: Enoxaparin 40 MG/0.4 ML SYR SC (08:49)
[2020-09-05] MEDS: Insulin Aspart 300 UNITS/3 ML PEN SC ×3 (08:49→16:54)
[2020-09-05] MEDS: Insulin Glargine 300 UNITS/3 ML PEN 15 UNITS SC (08:50)
--- NOTE | 2020-09-05 09:03 | W.PM.DS.N ---
Date of service: 09/05/20 Time of Service: 09:03 DS: Diagnosis Discharge Diagnosis (1) Osteomyelitis: Status: Acute (2) Type 2 diabetes mellitus with hyperglycemia, with long-term current use of insulin: Status: Chronic (3) Chronic systolic CHF (congestive heart failure): Status: Chronic (4) Gastroesophageal reflux disease: Status: Chronic (5) Essential hypertension: Status: Chronic Discharge Plan Discharge Details Reason For Visit: OSTEOMYELITIS Admit Date/Time: 09/03/20 10:27 Admit Provider: Ivory Yoon Attending Provider: Ivory Yoon Primary Care Provider: Camilla Sherman Home Meds and New Rx's Prescriptions: No Action rosuvastatin [Crestor] 40 mg tablet 40 mg PO HS Qty: 90 RF: 3 triamcinolone acetonide 0.5 % cream 1 applic TP .BID-QID Qty: 15 RF: 0 ammonium lactate 12 % cream 1 applic TP QD-BID PRN (Reason: dry skin) Qty: 140 RF: 3 (DME) lancets Misc See Rx Instructions .ROUTE .MEDSUPPLY Qty: 400 RF: 3 sertraline [Zoloft] 100 mg tablet 200 mg PO DAILY Qty: 180 RF: 3 (DME) FreeStyle Flako 14 Day Sensor Kit See Rx Instructions .ROUTE .MEDSUPPLY Qty: 6 RF: 3 (DME) FreeStyle Flako 14 Day [place] Misc See Rx Instructions .ROUTE .MEDSUPPLY Qty: 1 RF: 0 (DME) pen needle, diabetic 1 EACH needle Miscellaneous TID Qty: 300 RF: 3 nitroglycerin 0.4 mg tablet, sublingual 0.4 mg SL Q5M MDD 3 doses PRN (Reason: chest pain) Qty: 30 RF: 0 (DME) FreeStyle Flako 14 Day Sensor kit See Dose Instructions .ROUTE .MEDSUPPLY Qty: 1 RF: 0 (DME) Blood Glucose Test Strip See Rx Instructions .ROUTE .MEDSUPPLY Qty: 400 RF: 3 lisinopril 5 mg tablet 5 mg PO DAILY Qty: 90 RF: 3 metoprolol succinate 100 mg tablet extended release 24 hr 150 mg PO DAILY Qty: 135 RF: 3 aspirin 81 mg tablet,chewable 81 mg PO DAILY Qty: 90 RF: 3 magnesium oxide 400 mg (241.3 mg magnesium) tablet 400 mg PO DAILY Qty: 90 RF: 3 metformin 1,000 mg tablet 1,000 mg PO BID Qty: 180 RF: 3 spironolactone 25 mg tablet 12.5 mg PO DAILY Qty: 45 RF: 3 alcohol swabs [Alcohol Pads] Pads, Medicated 1 pad topical QID Qty: 400 RF: 3 Jardiance 25 mg tablet 25 mg PO DAILY Qty: 90 RF: 3 pantoprazole 40 mg tablet,delayed release (DR/EC) 40 mg PO QAM Qty: 90 RF: 3 clopidogrel [Plavix] 75 mg tablet 75 mg PO DAILY Qty: 90 RF: 3 insulin aspart U-100 [Novolog Flexpen U-100 Insulin] 100 unit/mL (3 mL) insulin pen See Rx Instructions subcut AC Qty: 15 RF: 3 sulfamethoxazole-trimethoprim 800-160 mg tablet 1 tab PO BID RF: 0 Lantus Solostar U-100 Insulin 100 unit/mL (3 mL) insulin pen 2 unit subcut HS RF: 0 DS: Data Vitals/I&O Vitals and I&O: Vital Signs Temperature 36.7 C 09/04/20 23:00 Temperature Source Tympanic 09/04/20 23:00 Pulse 78 09/04/20 23:00 Pulse Rhythm Regular 09/04/20 19:41 Respiratory Rate 17 09/04/20 23:00 Respiratory Effort Non-Labored 09/04/20 19:41 Respiratory Depth Normal 09/04/20 19:41 Respiratory Pattern Normal 09/04/20 19:41 Blood Pressure 105/70 09/04/20 23:00 Pulse Oximetry 95 09/04/20 23:00 Oxygen Delivery Method Room Air 09/04/20 23:00 Oxygen Flow Rate 0 09/04/20 23:00 Pain Level 0 09/05/20 07:33 Comment 09/05/20 07:33 Intake & Output 09/04/20 09/04/20 09/05/20 11:59 23:59 11:59 Intake Total 1320 / 1820 500 / 1820 Output Total 1875 / 2575 700 / 2575 500 / 500 Balance -555 / -755 -200 / -755 -500 / -500 Intake: IV 1000 / 1020 20 / 1020 Oral 320 / 800 480 / 800 Output: Urine 1875 / 2575 700 / 2575 500 / 500 Other: Urine Color Yellow Yellow Yellow Urine Appearance Clear Clear Clear Urine Odor None Voiding Methods Urinal Urinal Data Completed and Pending Labs on day of discharge: Labs from last 24 hours 09/04/20 07:30 ESR 28 H 09/03/20 13:46 Toe - Right Second Digit Wound Culture - Pending Preliminary micro results at discharge 09/03/20 13:46 Wound Culture - Pending Toe - Right Second Digit [facility] Medical History (Updated 09/04/20 @ 12:32 by Yessy Vizcarra NP) Adult BMI > 30 ASCVD (arteriosclerotic cardiovascular disease) (07/28/17) NSTEMI with HFrEF 07/11/2017 s/p MADONNA to mLAD on 07/14/2017 at [facility] Callus of foot I advised to purchase pumice stone and gentle smooth out the surface of the callus. Chronic HFrEF (heart failure with reduced ejection fraction) (07/20/18) LVEF 30-35% on index presentation improved to 50% on f/u echo Conductive hearing loss (07/06/13) Depression (11/25/11) Diabetic foot ulcer Elevated ferritin level (10/20/17) Erectile dysfunction (07/06/13) Essential hypertension (07/06/13) Gastroesophageal reflux disease Hyperlipidemia (07/06/13) 11/2017 labwork: 10-year ASCVD risk = ~6.1% --> continue current high intensity statin therapy (h/o ASCVD) Hyperuricemia Hypomagnesemia Microalbuminuria Noncompliance with medication regimen (07/06/13) Nonproliferative diabetic retinopathy NSTEMI (non-ST elevated myocardial infarction) (07/11/17) 06/2017: S/p MADONNA to mLAD at [facility] Will require DAPT for a minimum of 1 year Obstructive sleep apnea, adult (10/31/14) Pt. states he has not been using device 09/01/20 Severe, C-pap, Dr. Almeida continue on CPAP therapy with mask of choice,heated humidification and ramp. pressure should be set at 12 cm/H2o,alternatively auto CPAP 8-14 cm/H2O can be used. (sleep study note cameron Pulmonary hypertension (07/14/17) 07/14/17 mild pulm hypertension, mild pulm capillary wedge pressure, elevated left ventricular end diastolic pressure, one vessel CAD-LAD w/ stent oinsertion Restless leg syndrome (10/31/14) Per Sleep Lab Dr. Bui Sensorineural hearing loss, bilateral (11/24/17) Tubular adenoma of colon (10/18/14) Type 2 diabetes mellitus with retinopathy, with long-term current use of insulin (10/27/17) Surgical History Cholecystectomy Colonoscopy - IV Sedation (10/14/14) tubular adenoma Dr. Blancas S/P coronary artery stent placement s/p MADONNA to LAD mid 2; Dr. Fercho Eddy, [facility], 07/14/2017 Family History Mother Essential hypertension Father Lung cancer Social History Smoking/Tobacco Use Status: Never Alcohol Intake: never Drug use: Never Substance use type: does not use Household members: spouse Housing: apartment Number of Children: 1 Communication Needs: None 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
[2020-09-05 12:07] VITALS: BP 110/72; PULSE 81; RESP 18; TEMP 35.5; O2SAT 96
--- NOTE | 2020-09-05 13:19 | NUR.NOTE ---
Nursing Note: At 1319 on 09/05/20, pt. was transferred from acute status to swingbed status per MD order. RN will reassess as necessary.
--- NOTE | 2020-09-05 13:37 | W.PM.PROGNOT ---
Date of Service Date of service: 09/05/20 Time of Service: 13:37 Assessment and Plan Assessment and plan (1) Osteomyelitis: Status: Acute Assessment and plan: Post op day [address] Valencia, tobramycin antibiotic beads placed. biopsies pending. plan 6 weeks of antibiotics through Oct 15 place PICC line follow weekly labs with baseline scheduled for tomorrow. (2) Type 2 diabetes mellitus with hyperglycemia, with long-term current use of insulin: Status: Chronic Assessment and plan: will continue carb consistent diet, sliding scale coverage ac/hs. diabetic education lantus resumed today, 15 units daily, blood sugars yesterday 170-270, today 180 and 230 so far (3) Chronic systolic CHF (congestive heart failure): Status: Chronic Assessment and plan: stable, continue spironalactone, lisinopril and beta tish. echo 07/24/20 Estimated ejection fraction is 40 to 45%. The inferior and posterior guzman are hypocontractile. Findings are similar to prior echocardiogram from 2019. LV function has improved compared to 2017. No valvular vegetations identified (4) Gastroesophageal reflux disease: Status: Chronic Assessment and plan: continue PPI (5) Essential hypertension: Status: Chronic Assessment and plan: stable, continue lisinopril and metoprolol and monitor. (6) DVT prophylaxis: Status: Acute Assessment and plan: enoxaparin while hospitalized, none at discharge (discussed with Dr Valencia who does not want bedrest) (7) Discharge planning issues: Status: Acute Assessment and plan: anticipate discharge to home tuesday, will need daily infusion of antibiotics and weekly labs through oct 15, 2020 case discussed with Dara who is in agreement Subjective Subjective Patient reports: no new complaints, feels better, tolerating liquids well, tolerating a regular diet, voiding w/o difficulty and afebrile Exam Const General: cooperative, comfortable, no acute distress and ill appearing chronically Nutritional Appearance: overweight Orientation: alert, awake and oriented x3 HENMT Head: normal to inspection, normocephalic and atraumatic Mouth: oral mucosae normal Chest Chest: normal inspection of the chest Resp Effort & Inspection: normal respiratory effort Auscultation: clear to auscultation bilaterally Cardio Rate: regular rate Rhythm: regular rhythm GI Inspection: normal to inspection Palpation: soft Auscultation: normal bowel sounds Skin Lesions: other (dressing intact, no proximal erythema beyond dressing) Rashes: no rashes Neuro General: patient alert, patient awake and patient oriented x3 Extrem General: no pedal edema Objective Last Vital Signs Temp 35.5 C L 09/05/20 12:07 Pulse 81 09/05/20 12:07 Resp 18 09/05/20 12:07 BP 110/72 09/05/20 12:07 Pulse Ox 96 09/05/20 12:07
--- NOTE | 2020-09-05 14:54 | CMPROGNOTE_ITS ---
- If Service Date Differs Date of service: 09/05/20 Time of Service: 14:54 Care Management Progress Note S/O: Edward continues to need adjustment of his insulin. He agrees to home IV abx once if day if approved. CM faxed the orders to [facility] for verification of coverage. Edward has a PICC line in place. Edward has a CGM and will continue to work with DM educator. Edward is concerned that he continues to need a finger stick while wearing the CGM. However his glucose reading and finger stick reading is at times a 100 point difference. CM has reached out to DM educator and requested for him to look at the information. CM did contact [facility] to verify receipr of home infusion orders. A: Edward is a 54 year old male admitted for osteomylitis and status post resection P:Edward will plan to be discharged on Tuesday with home IV abx waiting confirmation from [facility] he will need resumption of home health nursing. Family will transport home via private car with family.
[2020-09-05] MEDS: cefTRIAXone 2 GM/50 ML BAG IVPB (15:32)
[2020-09-05] MEDS: Normal Saline Flush 10 ML SYR IV ×2 (15:33→16:41)
[2020-09-05 15:36] VITALS: BP 103/76; PULSE 76; RESP 16; TEMP 37.5; O2SAT 96
[2020-09-05] MEDS: Acetaminophen 325 MG TAB 650 MG PO (15:40)
[2020-09-05 20:30] VITALS: BP 105/72; PULSE 75; RESP 18; TEMP 36.6; O2SAT 96
[2020-09-05] MEDS: Normal Saline Flush 10 ML SYR IVP (21:38)
[2020-09-05] MEDS: Melatonin 3 MG TAB 9 MG PO (21:38)
[2020-09-05] MEDS: ROSUVASTATIN 20 MG TAB 40 MG PO (21:39)
[2020-09-06 03:52] VITALS: BP 103/67; PULSE 75; RESP 17; TEMP 37; O2SAT 98
[2020-09-06 07:37] VITALS: BP 108/74; PULSE 76; RESP 16; TEMP 36.5; O2SAT 98
--- NOTE | 2020-09-06 08:59 | PDOC.CMPRO ---
Care Management Progress Note S/O: Edward continues to be closely monitored, and continues to require adjustments of his insulin dosing. Edward has a CGM and will continue to work with DM educator. Edward is concerned that he continues to need a finger stick while wearing the CGM. However his glucose reading and finger stick reading is at times a 100 point difference. CM has reached out to DM educator and requested for him to look at the information. A: Edward is a 54 year old male admitted for osteomylitis and status post resection P: Anticipate Edward will discharge home on Tuesday with new orders for VNA: RN and NEYEHUDA (IV ABX), FABI was contacted by NEYEHUDA who reported Ganesh will have full coverage for medication. PICC is in place and will remain for home infusion. Ganesh will also follow up with his PCP and transport home via private vehicle with family.
[2020-09-06] MEDS: Spironolactone 25 MG TAB 12.5 MG PO (09:44)
[2020-09-06] MEDS: Pantoprazole 40 MG TABCR PO (09:44)
[2020-09-06] MEDS: Metoprolol CR 50 MG TABCR 150 MG PO (09:44)
[2020-09-06] MEDS: Magnesium Oxide 400 MG TAB PO (09:44)
[2020-09-06] MEDS: Sertraline 50 MG TAB 200 MG PO (09:44)
[2020-09-06] MEDS: Clopidogrel 75 MG TAB PO (09:44)
[2020-09-06] MEDS: Lisinopril 5 MG TAB PO (09:44)
[2020-09-06] MEDS: Aspirin 81 MG CHEW PO (09:44)
[2020-09-06] MEDS: Insulin Glargine 300 UNITS/3 ML PEN 15 UNITS SC (09:45)
[2020-09-06] MEDS: Normal Saline Flush 10 ML SYR IVP ×2 (09:45→20:10)
[2020-09-06] MEDS: Enoxaparin 40 MG/0.4 ML SYR SC (09:45)
[2020-09-06] MEDS: Insulin Aspart 300 UNITS/3 ML PEN SC ×3 (09:45→17:10)
--- NOTE | 2020-09-06 10:55 | W.PM.PROGNOT ---
Date of Service Date of service: 09/06/20 Time of Service: 10:55 Assessment and Plan Assessment and plan (1) Osteomyelitis: Start date: 09/06/20 Start time: 10:58 Status: Acute Assessment and plan: Post op day [address] Valencia, tobramycin antibiotic beads placed. biopsies pending. plan 6 weeks of antibiotics through Oct 15 place PICC line follow weekly labs with baseline scheduled for tomorrow. (2) Type 2 diabetes mellitus with hyperglycemia, with long-term current use of insulin: Start date: 09/06/20 Start time: 10:58 Status: Chronic Assessment and plan: will continue carb consistent diet, sliding scale coverage ac/hs. diabetic education lantus resumed today, 15 units daily, blood sugars yesterday 170-270, today 180 and 230 so far (3) Chronic systolic CHF (congestive heart failure): Start date: 09/06/20 Start time: 10:59 Status: Chronic Assessment and plan: stable, continue spironalactone, lisinopril and beta tish. echo 07/24/20 Estimated ejection fraction is 40 to 45%. The inferior and posterior guzman are hypocontractile. Findings are similar to prior echocardiogram from 2019. LV function has improved compared to 2017. No valvular vegetations identified (4) Gastroesophageal reflux disease: Start date: 09/06/20 Start time: 10:59 Status: Chronic Assessment and plan: continue PPI (5) Essential hypertension: Start date: 09/06/20 Start time: 10:59 Status: Chronic Assessment and plan: stable, continue lisinopril and metoprolol and monitor. (6) DVT prophylaxis: Start date: 09/06/20 Start time: 10:59 Status: Acute Assessment and plan: enoxaparin while hospitalized, none at discharge (discussed with Dr Valencia who does not want bedrest) (7) Discharge planning issues: Status: Acute Assessment and plan: anticipate discharge to home tuesday, will need daily infusion of antibiotics and weekly labs through oct 15, [address] Mendoza who is in agreement Subjective Subjective Patient reports: no new complaints Interval history since last seen: Doing well. Will discharge home on Tuesday with 6 weeks ceftriaxone. End date 10/15. Will do surveillance labs for am. Exam Const General: cooperative, comfortable, no acute distress and ill appearing chronically Nutritional Appearance: overweight Orientation: alert, awake and oriented x3 [facility] Head: normal to inspection, normocephalic and atraumatic Mouth: oral mucosae normal Chest Chest: normal inspection of the chest Resp Effort & Inspection: normal respiratory effort Auscultation: clear to auscultation bilaterally Cardio Rate: regular rate Rhythm: regular rhythm GI Inspection: normal to inspection Palpation: soft Auscultation: normal bowel sounds Skin Lesions: other (dressing intact, no proximal erythema beyond dressing) Rashes: no rashes Neuro General: patient alert, patient awake and patient oriented x3 Extrem General: no pedal edema Objective Last Vital Signs Temp 37.0 C 09/06/20 03:52 Pulse 75 09/06/20 03:52 Resp 17 09/06/20 03:52 BP 103/67 09/06/20 03:52 Pulse Ox 98 09/06/20 03:52
[2020-09-06 11:53] VITALS: BP 109/72; PULSE 83; RESP 19; TEMP 36.3; O2SAT 96
[2020-09-06 15:42] VITALS: BP 108/72; PULSE 76; RESP 18; TEMP 36.5; O2SAT 97
[2020-09-06] MEDS: Normal Saline 500 ML 100 ML IV (17:09)
[2020-09-06] MEDS: cefTRIAXone 2 GM/50 ML BAG IVPB (17:10)
[2020-09-06] MEDS: Normal Saline Flush 10 ML SYR IV (17:10)
[2020-09-06] MEDS: Melatonin 3 MG TAB 9 MG PO (21:29)
[2020-09-06] MEDS: ROSUVASTATIN 20 MG TAB 40 MG PO (21:29)
[2020-09-06 23:16] VITALS: BP 91/62; PULSE 75; RESP 16; TEMP 36.9; O2SAT 96
[2020-09-07 03:32] VITALS: BP 119/76; PULSE 73; RESP 18; TEMP 36.7; O2SAT 98
[2020-09-07 07:27] VITALS: BP 124/86; PULSE 74; RESP 17; TEMP 36.4; O2SAT 95
[2020-09-07] MEDS: Normal Saline Flush 10 ML SYR IV ×3 (08:16→14:58)
[2020-09-07 08:31] LABS: HCT 39.5 % (40.0-50.0); HGB 13.2 g/dL (13.5-17.5); MCH 29.3 pg (27.0-33.0); MCHC 33.4 % (32.0-36.0); MCV 87.8 fL (80-95); Platelet Count 240 10^3/uL (130-400); RDW 13.2 % (11.8-14.1); RDW-SD 42.7 fL; WBC 7.78 10^3/uL (4.4-10.8)
--- NOTE | 2020-09-07 08:33 | PDOC.CMPRO ---
Care Management Progress Note S/O: Edward continues to be closely monitored, but is making progress toward discharge. Anticipate he will return home tomorrow after receiving his daily antibiotic infusion; CM continues to follow. A: Edward is a 54 year old male admitted for osteomylitis and status post resection P: Anticipate Edward will discharge home on Tuesday with new orders for VNA: RN and ALEXANDRA (IV ABX), FABI was contacted by NEYEHUDA who reported Ganesh will have full coverage for medication. PICC is in place and will remain for home infusion. Ganesh will also follow up with his PCP and transport home via private vehicle with family.
[2020-09-07 08:37] LABS: BUN 22 mg/dL (7-18); C-Reactive Protein 4.97 mg/dL (0.0-0.3); CREATININE 0.77 mg/dL (0.70-1.30); Calcium 9.4 mg/dL (8.5-10.1); Chloride 102 mmol/L (98-107); Glucose 206 mg/dL (74-106); Potassium 4.4 mmol/L (3.5-5.1); Sodium 135 mmol/L (136-145)
[2020-09-07] MEDS: Insulin Glargine 300 UNITS/3 ML PEN 15 UNITS SC (09:02)
[2020-09-07] MEDS: Insulin Aspart 300 UNITS/3 ML PEN SC ×3 (09:02→17:27)
[2020-09-07] MEDS: Normal Saline Flush 10 ML SYR IVP ×2 (09:03→19:52)
[2020-09-07] MEDS: Aspirin 81 MG CHEW PO (09:03)
[2020-09-07] MEDS: Metoprolol CR 50 MG TABCR 150 MG PO (09:03)
[2020-09-07] MEDS: Clopidogrel 75 MG TAB PO (09:03)
[2020-09-07] MEDS: Enoxaparin 40 MG/0.4 ML SYR SC (09:03)
[2020-09-07] MEDS: Spironolactone 25 MG TAB 12.5 MG PO (09:03)
[2020-09-07] MEDS: Magnesium Oxide 400 MG TAB PO (09:04)
[2020-09-07] MEDS: Lisinopril 5 MG TAB PO (09:04)
[2020-09-07] MEDS: Pantoprazole 40 MG TABCR PO (09:04)
[2020-09-07] MEDS: Sertraline 50 MG TAB 200 MG PO (09:04)
--- NOTE | 2020-09-07 11:26 | W.PM.PROGNOT ---
Date of Service Date of service: 09/07/20 Time of Service: Assessment and Plan Assessment and plan (1) Osteomyelitis: Start date: 09/07/20 Start time: 11:28 Status: Acute Assessment and plan: Post op day [address] Valencia, tobramycin antibiotic beads placed. biopsies pending. plan 6 weeks of antibiotics through Oct 15 PICC line placed. follow weekly labs with baseline scheduled for tomorrow. Labs stable. Would repeat CBC & CRP in a week Qualifiers: Osteomyelitis type: other acute (2) Type 2 diabetes mellitus with hyperglycemia, with long-term current use of insulin: Start date: 09/07/20 Start time: 11:30 Status: Chronic Assessment and plan: will continue carb consistent diet, sliding scale coverage ac/hs. diabetic education lantus resumed today, 15 units daily, 194 today will increase lantus to 18 units daily (3) Chronic systolic CHF (congestive heart failure): Start date: 09/07/20 Start time: 11:31 Status: Chronic Assessment and plan: stable, continue spironalactone, lisinopril and beta tish. echo 07/24/20 Estimated ejection fraction is 40 to 45%. The inferior and posterior guzman are hypocontractile. Findings are similar to prior echocardiogram from 2019. LV function has improved compared to 2017. No valvular vegetations identified (4) Gastroesophageal reflux disease: Start date: 09/07/20 Start time: 11:31 Status: Chronic Assessment and plan: continue PPI (5) Essential hypertension: Start date: 09/07/20 Start time: 11:31 Status: Chronic Assessment and plan: stable, continue lisinopril and metoprolol and monitor. (6) DVT prophylaxis: Start date: 09/07/20 Start time: 11:31 Status: Acute Assessment and plan: enoxaparin while hospitalized, none at discharge (discussed with Dr Valencia who does not want bedrest) (7) Discharge planning issues: Start date: 09/07/20 Start time: 11: Status: Acute Assessment and plan: anticipate discharge to home tuesday, will need daily infusion of antibiotics and weekly labs through oct 15, [address] Mendoza who is in agreement Subjective Subjective Patient reports: no new complaints Interval history since last seen: Doing well. No pain, tolerating food and liquids. Denies CP, N/V/D. Home with VNA tomorrow. Exam Const General: cooperative, comfortable, no acute distress and ill appearing chronically Nutritional Appearance: overweight Orientation: alert, awake and oriented x3 HENMT Head: normal to inspection, normocephalic and atraumatic Mouth: oral mucosae normal Chest Chest: normal inspection of the chest Resp Effort & Inspection: normal respiratory effort Auscultation: clear to auscultation bilaterally Cardio Rate: regular rate Rhythm: regular rhythm GI Inspection: normal to inspection Palpation: soft Auscultation: normal bowel sounds Skin Lesions: other (dressing intact, no proximal erythema beyond dressing) Rashes: no rashes Neuro General: patient alert, patient awake and patient oriented x3 Extrem General: no pedal edema Objective Last Vital Signs Temp 36.4 C L 09/07/20 07:27 Pulse 74 09/07/20 07:27 Resp 17 09/07/20 07:27 BP 124/86 09/07/20 07:27 Pulse Ox 95 09/07/20 07:27 Laboratory Results - last 24 hr 09/07/20 09/07/20 08:20 08:20 WBC 7.78 RBC 4.50 Hgb 13.2 L Hct 39.5 L MCV 87.8 MCH 29.3 MCHC 33.4 RDW 13.2 Plt Count 240 MPV 9.0 Sodium 135 L Potassium 4.4 Chloride 102 Carbon Dioxide 28.0 Anion Gap 5.0 BUN 22 H Creatinine 0.77 Estimated GFR/1.73 m2 >= 60.00 Glucose 206 H Calcium 9.4 C-Reactive Protein 4.97 H
[2020-09-07] MEDS: cefTRIAXone 2 GM/50 ML BAG IVPB (13:44)
[2020-09-07 15:22] VITALS: BP 118/73; PULSE 73; RESP 16; TEMP 36.2; O2SAT 95
[2020-09-07] MEDS: Melatonin 3 MG TAB 9 MG PO (21:50)
[2020-09-07] MEDS: ROSUVASTATIN 20 MG TAB 40 MG PO (21:50)
[2020-09-07 23:55] VITALS: BP 109/63; PULSE 77; RESP 18; TEMP 36.8; O2SAT 95
[2020-09-08] MEDS: Zolpidem 5 MG TAB PO (03:05)
[2020-09-08 07:29] VITALS: BP 108/74; PULSE 74; RESP 18; TEMP 35.4; O2SAT 97
[2020-09-08] MEDS: Insulin Aspart 300 UNITS/3 ML PEN SC ×2 (08:10→11:48)
--- NOTE | 2020-09-08 08:32 | W.PM.DS.N ---
Date of service: 09/08/20 Time of Service: 08:32 DS: Diagnosis Discharge Diagnosis (1) Osteomyelitis: Start date: 09/08/20 Start time: 08:32 Status: Acute Asessment and Plan: Post op day [address] Valencia. Biopsies pending. Will be discharged home on ceftriaxone IV with PICC line in place. Antibiotics through 10/15. [facility] for infusion and wound care. Follow up with Dr. Valencia as an outpatient. Wound culture with no growth to date Ambulate as tolerated and keep foot elevated when not ambulating, wear surgical shoe with all wt bearing activities. (2) Type 2 diabetes mellitus with hyperglycemia, with long-term current use of insulin: Start date: 09/08/20 Start time: 08:41 Status: Chronic Asessment and Plan: Continue to monitor fingersticks. Continue low carb/ heart healthy diet. (3) Chronic systolic CHF (congestive heart failure): Start date: 09/08/20 Start time: 08:43 Status: Chronic Asessment and Plan: Continue YVETTE, BB, statin and nitro as needed. (4) Gastroesophageal reflux disease: Start date: 09/08/20 Start time: 08:46 Status: Chronic Asessment and Plan: Continue protonix (5) Essential hypertension: Start date: 09/08/20 Start time: 08:47 Status: Chronic Asessment and Plan: Continue YVETTE and BB Above case discussed with Dr. Mendoza who is in agreement. Discharge Plan Disposition Patient Disposition: HOME W/HOME HEALTH SERVICE Condition: Improving Discharge Details Reason For Visit: OSTEOMYELITIS Admit Date/Time: 09/03/20 10:27 Admit Provider: Ivory Yoon Attending Provider: Ivory Yoon Primary Care Provider: [facility] Hospital Course Hospital Course: 54 y.o male with PMH of poorly controlled IDDM, CHF, HTN, HLD, admitted after having resection of for recent diabetic foot infection by Dr. Valencia. Mr. Tang had a resection of second and third metatarsal phalangeal joints. MRI confirmed osteo mylitis and he was placed on 2 gram ceftriaxone. He was admitted for further management of his osteo and has been doing well. He has minimal pain after surgery but his appears to be well controlled. He has been afebrile, recent labs with no leukocytosis, CRP 4.97. He denies pain and is ready to go home. He is being discharged home with PICC line in place. He will have weekly labs and receive Ceftriaxone 2 gm through 10/15. Podiatry Recommendations: Nursing to wash the foot every other day with soap and water, Xeroform gauze fluff dressings. He may ambulate as tolerated but he should be encouraged to keep his foot elevated when not ambulating. He should wear his surgical shoe during all weightbearing activities. Home Meds and New Rx's Prescriptions: New ceftriaxone in dextrose,iso-os 2 gram/50 mL Piggyback 2 g IVPB Q24H Qty: 1 RF: 0 Continued rosuvastatin [Crestor] 40 mg tablet 40 mg PO HS Qty: 90 RF: 3 triamcinolone acetonide 0.5 % cream 1 applic TP .BID-QID Qty: 15 RF: 0 ammonium lactate 12 % cream 1 applic TP QD-BID PRN (Reason: dry skin) Qty: 140 RF: 3 sertraline [Zoloft] 100 mg tablet 200 mg PO DAILY Qty: 180 RF: 3 nitroglycerin 0.4 mg tablet, sublingual 0.4 mg SL Q5M MDD 3 doses PRN (Reason: chest pain) Qty: 30 RF: 0 lisinopril 5 mg tablet 5 mg PO DAILY Qty: 90 RF: 3 metoprolol succinate 100 mg tablet extended release 24 hr 150 mg PO DAILY Qty: 135 RF: 3 aspirin 81 mg tablet,chewable 81 mg PO DAILY Qty: 90 RF: 3 magnesium oxide 400 mg (241.3 mg magnesium) tablet 400 mg PO DAILY Qty: 90 RF: 3 metformin 1,000 mg tablet 1,000 mg PO BID Qty: 180 RF: 3 spironolactone 25 mg tablet 12.5 mg PO DAILY Qty: 45 RF: 3 alcohol swabs [Alcohol Pads] Pads, Medicated 1 pad topical QID Qty: 400 RF: 3 Jardiance 25 mg tablet 25 mg PO DAILY Qty: 90 RF: 3 pantoprazole 40 mg tablet,delayed release (DR/EC) 40 mg PO QAM Qty: 90 RF: 3 clopidogrel [Plavix] 75 mg tablet 75 mg PO DAILY Qty: 90 RF: 3 insulin aspart U-100 [Novolog Flexpen U-100 Insulin] 100 unit/mL (3 mL) insulin pen See Rx Instructions subcut AC Qty: 15 RF: 3 Lantus Solostar U-100 Insulin 100 unit/mL (3 mL) insulin pen 2 unit subcut HS RF: 0 Discontinued sulfamethoxazole-trimethoprim 800-160 mg tablet 1 tab PO BID RF: 0 No Action (DME) lancets Misc See Rx Instructions .ROUTE .MEDSUPPLY Qty: 400 RF: 3 (DME) FreeStyle Flako 14 Day Sensor Kit See Rx Instructions .ROUTE .MEDSUPPLY Qty: 6 RF: 3 (DME) FreeStyle Flako 14 Day Marydel Misc See Rx Instructions .ROUTE .MEDSUPPLY Qty: 1 RF: 0 (DME) pen needle, diabetic 1 EACH needle Miscellaneous TID Qty: 300 RF: 3 (DME) FreeStyle Flako 14 Day Sensor kit See Dose Instructions .ROUTE .MEDSUPPLY Qty: 1 RF: 0 (DME) Blood Glucose Test Strip See Rx Instructions .ROUTE .MEDSUPPLY Qty: 400 RF: 3 Discharge Instructions Instructions: Osteomyelitis (DC) Additional Instructions: You are being discharged home with a PICC line. Do not take dressing off or touch picc. You will have [facility] set up for infusions at home. You may walk around just wear your surgical shoe. Elevate leg when not walking around nursing to wash the foot every other day with soap and water, Xeroform gauze fluff dressings. Stand Alone Forms: Nursing Discharge Form Activity:: Activity as Tolerated Equipment/Supplies:: No Equipment Needed Diet:: Carb Counting Discharge Orders Discharge Orders: Discharge Order (Routine); Ordered 09/08/20 Ordered By: Jemma Stephenson DS: Summary Status at Discharge Functional status at discharge: independent ambulation Overall status at discharge: patient is progressing back to baseline Mental Status: mental status grossly normal Speech and Movement: speech and movement normal Mood: congruent mood Affect: normal affect Exam Const General: cooperative, comfortable, no acute distress and ill appearing chronically Nutritional Appearance: overweight Orientation: alert, awake and oriented x3 HENMT Head: normal to inspection, normocephalic and atraumatic Mouth: oral mucosae normal Chest Chest: normal inspection of the chest Resp Effort & Inspection: normal respiratory effort Auscultation: clear to auscultation bilaterally Cardio Rate: regular rate Rhythm: regular rhythm GI Inspection: normal to inspection Palpation: soft Auscultation: normal bowel sounds Skin Lesions: other (dressing intact, no proximal erythema beyond dressing) Rashes: no rashes Neuro General: patient alert, patient awake and patient oriented x3 Extrem General: no pedal edema Psych Mental Status: mental status grossly normal Speech and Movement: speech and movement normal Mood: congruent mood Affect: normal affect DS: Data Vitals/I&O Vitals and I&O: Vital Signs Temperature 35.4 C L 09/08/20 07:29 Temperature Source Tympanic 09/08/20 07:29 Pulse 74 09/08/20 07:29 Pulse Rhythm Regular 09/08/20 02:55 Respiratory Rate 18 09/08/20 07:29 Respiratory Effort Non-Labored 09/08/20 02:55 Respiratory Depth Normal 09/08/20 02:55 Respiratory Pattern Normal 09/08/20 02:55 Blood Pressure 108/74 09/08/20 07:29 Pulse Oximetry 97 09/08/20 07:29 Oxygen Delivery Method Room Air 09/08/20 07:29 Oxygen Flow Rate 0 09/08/20 07:29 Pain Level 0 09/08/20 07:29 Comment 09/07/20 14:00 Intake & Output 09/07/20 09/07/20 09/08/20 11:59 23:59 11:59 Intake Total 290 / 1740 1450 / 1740 Output Total 550 / 730 180 / 730 390 / 390 Balance -260 / 1010 1270 / 1010 -390 / -390 Intake: IV 50 / 170 120 / 170 Oral 240 / 1570 1330 / 1570 Output: Urine 550 / 730 180 / 730 390 / 390 Other: Urine Color Straw Yellow Pale Urine Appearance Clear Clear Clear Urine Odor Normal Normal Normal Comment Void x1 in the urinal. no output at this time. Voiding Methods Urinal Urinal Urinal Data Completed and Pending Completed studies during hospitalization [Text1]: FINDINGS: MR examination of the forefoot was obtained according to the usual protocol with additional pre and post contrast T1 fat sat imaging. Patient reportedly has a chronic diabetic ulcer at 2nd to 3rd MTP region. There is abnormal marrow signal involving the heads of the 2nd and 3rd metatarsal and the proximal phalanges of the 2nd and 3rd toes. There is also marrow enhancement involving these bones. No additional bony involvement seen in the forefoot. There is increased signal on T2 weighted imaging and enhancement in the region surrounding the 2nd and 3rd MTP joints. There is a roughly 21 x 11 x 3 millimeter in diameter nonenhancing fluid collection with enhancing rim consistent with abscess which lies between heads of the 2nd and 3rd metatarsals and the bases of the proximal phalanges of the 2nd and 3rd toes. No additional convincing abscess identified. Ligaments and tendons of the forefoot as visualized appear grossly intact. Motion artifact causes some decrease in visualization of the anatomy. IMPRESSION: Findings suggesting osteomyelitis of the heads of the 2nd and 3rd metatarsals, extending to the mid diaphysis, and osteomyelitis of the proximal phalanges of the 2nd and 3rd toes. There is a presumed abscess associated with the inter metatarsal head region at this 2/3 metatarsal level extending adjacent to bases of the proximal phalanges of the 2nd and 3rd toes. Labs on day of discharge: Labs from last 24 hours 09/07/20 09/07/20 08:20 08:20 WBC 7.78 RBC 4.50 Hgb 13.2 L Hct 39.5 L MCV 87.8 MCH 29.3 MCHC 33.4 RDW 13.2 Plt Count 240 MPV 9.0 Sodium 135 L Potassium 4.4 Chloride 102 Carbon Dioxide 28.0 Anion Gap 5.0 BUN 22 H Creatinine 0.77 Estimated GFR/1.73 m2 >= 60.00 Glucose 206 H Calcium 9.4 C-Reactive Protein 4.97 H Preliminary micro results at discharge 09/03/20 13:46 Wound Culture - Preliminary Toe - Right Second [facility] Medical History Adult BMI > 30 ASCVD (arteriosclerotic cardiovascular disease) (07/28/17) NSTEMI with HFrEF 07/11/2017 s/p MADONNA to mLAD on 07/14/2017 at [facility] Callus of foot I advised to purchase pumice stone and gentle smooth out the surface of the callus. Chronic HFrEF (heart failure with reduced ejection fraction) (07/20/18) LVEF 30-35% on index presentation improved to 50% on f/u echo Conductive hearing loss (07/06/13) Depression (11/25/11) Diabetic foot ulcer Elevated ferritin level (10/20/17) Erectile dysfunction (07/06/13) Essential hypertension (07/06/13) Gastroesophageal reflux disease Hyperlipidemia (07/06/13) 11/2017 labwork: 10-year ASCVD risk = ~6.1% --> continue current high intensity statin therapy (h/o ASCVD) Hyperuricemia Hypomagnesemia Microalbuminuria Noncompliance with medication regimen (07/06/13) Nonproliferative diabetic retinopathy NSTEMI (non-ST elevated myocardial infarction) (07/11/17) 06/2017: S/p MADONNA to mLAD at [facility] Will require DAPT for a minimum of 1 year Obstructive sleep apnea, adult (10/31/14) Pt. states he has not been using device 09/01/20 Severe, C-pap, Dr. Almeida continue on CPAP therapy with mask of choice,heated humidification and ramp. pressure should be set at 12 cm/H2o,alternatively auto CPAP 8-14 cm/H2O can be used. (sleep study note cameron Pulmonary hypertension (07/14/17) 07/14/17 mild pulm hypertension, mild pulm capillary wedge pressure, elevated left ventricular end diastolic pressure, one vessel CAD-LAD w/ stent oinsertion Restless leg syndrome (10/31/14) Per Sleep Lab Dr. Bui Sensorineural hearing loss, bilateral (11/24/17) Tubular adenoma of colon (10/18/14) Type 2 diabetes mellitus with retinopathy, with long-term current use of insulin (10/27/17) Surgical History Cholecystectomy Colonoscopy - IV Sedation (10/14/14) tubular adenoma Dr. Blancas S/P coronary artery stent placement s/p MADONNA to LAD mid 2; Dr. Fercho Eddy, [facility], 07/14/2017 Family History Mother Essential hypertension Father Lung cancer Social History Smoking/Tobacco Use Status: Never Alcohol Intake: never Drug use: Never Substance use type: does not use Household members: spouse Housing: apartment Number of Children: 1 Communication Needs: None 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
[2020-09-08] MEDS: Insulin Glargine 300 UNITS/3 ML PEN 18 UNITS SC (09:01)
[2020-09-08] MEDS: Enoxaparin 40 MG/0.4 ML SYR SC (09:02)
[2020-09-08] MEDS: Normal Saline Flush 10 ML SYR IVP (09:02)
[2020-09-08] MEDS: Sertraline 50 MG TAB 200 MG PO (09:03)
[2020-09-08] MEDS: Metoprolol CR 50 MG TABCR 150 MG PO (09:03)
[2020-09-08] MEDS: Magnesium Oxide 400 MG TAB PO (09:03)
[2020-09-08] MEDS: Spironolactone 25 MG TAB 12.5 MG PO (09:05)
[2020-09-08] MEDS: Lisinopril 5 MG TAB PO (09:05)
[2020-09-08] MEDS: Pantoprazole 40 MG TABCR PO (09:05)
[2020-09-08] MEDS: Clopidogrel 75 MG TAB PO (09:06)
[2020-09-08] MEDS: Aspirin 81 MG CHEW PO (09:06)
--- NOTE | 2020-09-08 09:24 | PDOC.HHF2F_ITS ---
Home Health Certification Home Health Certification: 1. Encounter Date and Reason I certify that DANAY HAHN was seen by Jemma Stephenson on 09/08/20 and that I had a [id number] encounter with this patient that meets the physician face to face encounter requirements. 2. Clinical Findings Supporting Skilled Need and Homebound Status I certify that home health services are medically necessary, include either intermittent fpc and/or physical/speech therapy, and that this patie nt is homebound in that absences from the home require considerable and taxing effort and are infrequent or of short duration, or are attributable to the need to receive medical care. [X] (a) Attached documentation from encounter provides clinical findings supporting skilled need and homebound status (including what assistance patient requires to leave the home). The encounter with the patient was in whole, or in part, for the following medical condition, which is the primary reason for home health care: OSTEOMYELITIS Residential: Patient would benefit from nursing services for PICC line care, wound drsg changes and infusion therapy, weekly labs. Wound care instructions: nursing to wash the foot every other day with soap and water, Xeroform gauze fluff dressings. He may ambulate as tolerated but he should be encouraged to keep his foot elevated when not ambulating. He should wear his surgical shoe during all weightbearing activities. Homebound: Unable to leave home without assistance. 3. Certification and Authentication I certify that I composed the above information based on my clinical judgement relating to this patient's medical condition and, if applicable, clinical findings communicated to me by the NPP or inpatient physician who performed the Home Health Referral. All further orders will be obtained through _Camilla Sherman (Community Based Physician - PCP)
--- NOTE | 2020-09-08 11:13 | PDOC.CMDIS ---
- If Service Date Differs Date of service: 09/08/20 Time of Service: 11:13 LACE Index Scoring Tool - Questions: Length of Stay (in days): 4 - 6 Acuity (Admit via E.D.?): Yes Comorbidities: Previous M.I., Diabetes w/o Complication E.D. Visits: 6 - Answers: Total Score: 13 Risk of Readmission: High Risk Care Management Discharge Reason for Hospitalization: Osteomyelitis status post resection of the second and third metatarsal joint Discharge Plan: Edward is being discharged home today with home IV abx via [facility] and [facility]. He will have six weeks of Abx covered at a 100%. CM contacted Edward over the phone once he returned home and notified him of 8 pm delivery by [facility]. CM contacted home health and provided information r/t time of next abx and delivery of supplies. Edward will also have wound care by [facility]. Patient/Family Education Needs: Discharge education, limitations and follow up plan of care including ask me three and self management. Services Needed at Discharge: Home Health Care Services, Infusion Therapy
[2020-09-08] MEDS: cefTRIAXone 2 GM/50 ML BAG IVPB (11:49)
[2020-09-08] MEDS: Normal Saline 500 ML 30 ML IV (11:52)
[2020-09-08] MEDS: Normal Saline Flush 10 ML SYR IV (11:54)
== END 2020-09-08 13:59 | disposition home health service (06) | DRG 629 ==
LOC: PDS 10:27 → MS 14:45
PROVIDERS: Internal Medicine; Nurse Practitioner Acute Care; Podiatrist; Admitting Provider Internal Medicine; PCP Nurse Practitioner Family; Visit Provider Internal Medicine
PROC: 0QBN0ZX Excision of Right Metatarsal, Open Approach, Diagnostic (ICD-10-PCS; CPT 28104; principal; 2020-09-03 13:00)
DX: E11.621 Type 2 diabetes mellitus with foot ulcer; M86.8X7 Other osteomyelitis, ankle and foot; I50.22 Chronic systolic (congestive) heart failure; L97.516 Non-pressure chronic ulcer of other part of right foot with bone involvement without evidence of necrosis; I11.0 Hypertensive heart disease with heart failure; I25.10 Atherosclerotic heart disease of native coronary artery without angina pectoris; I25.2 Old myocardial infarction; Z95.5 Presence of coronary angioplasty implant and graft; F32.9 Major depressive disorder, single episode, unspecified; I27.20 Pulmonary hypertension, unspecified; E11.3299 Type 2 diabetes mellitus with mild nonproliferative diabetic retinopathy without macular edema, unspecified eye; E11.65 Type 2 diabetes mellitus with hyperglycemia; E78.5 Hyperlipidemia, unspecified; E66.01 Morbid (severe) obesity due to excess calories; G47.33 Obstructive sleep apnea (adult) (pediatric); K21.9 Gastro-esophageal reflux disease without esophagitis; G25.81 Restless legs syndrome; Z79.4 Long term (current) use of insulin
CPT/HCPCS: 28104; 28126; 36573; 80048; 80053; 85027; 85652; 88305; 99223; 99233; 99239; 99309; J1650; 85025; 86140; 87070; 87205; 88304; 88311; J2001; J2704; J3010

== ENCOUNTER 2020-09-16 16:06 | Outpatient (REF) | payer MEDICAID, SELFPAY ==
[2020-09-16 16:41] LABS: Abs Immature Grans 0.04 10^3/uL (0.0-0.06); Absolute Basophil Count 0.04 10^3/uL (0.0-0.2); Absolute Eosinophil Count 1.05 10^3/uL (0.0-0.7); Absolute Lymphocyte Count 2.17 10^3/uL (1.2-3.4); Absolute Monocyte Count 0.59 10^3/uL (0.1-0.8); Basophils % 0.4; Eosinophils % 11.7; HCT 42.7 % (40.0-50.0); Immature Grans % 0.4; Lymphocytes % 24.1; MCH 29.1 pg (27.0-33.0); MCHC 32.8 % (32.0-36.0); MCV 88.8 fL (80-95); MPV 9.5 fL (8.0-11.0); Monocytes % 6.6; Neutrophils % 56.8; Nucleated RBC 0 %; Platelet Count 304 10^3/uL (130-400); RBC 4.81 10^6/uL (4.36-5.78); RDW 13.4 % (11.8-14.1); RDW-SD 43.1 fL; WBC 8.99 10^3/uL (4.4-10.8)
[2020-09-16 16:48] LABS: ALT 29 U/L (16-63); AST 22 U/L (15-37); Albumin 3.3 g/dL (3.4-5.0); Alkaline Phosphatase 80 U/L (46-116); Anion Gap 10.4 mmol/L (3-11); BUN 24 mg/dL (7-18); Bilirubin, Total 0.2 mg/dL (0.2-1.0); C-Reactive Protein 0.35 mg/dL (0.0-0.3); CO2 21.6 mmol/L (21.0-32.0); CREATININE 0.94 mg/dL (0.70-1.30); Calcium 7.8 mg/dL (8.5-10.1); Chloride 105 mmol/L (98-107); Glucose 222 mg/dL (74-106); Potassium 3.9 mmol/L (3.5-5.1); Sodium 137 mmol/L (136-145); Total Protein 6.2 g/dL (6.4-8.2)
[2020-09-16 17:58] LABS: ESR 23 mm/hr (1-20)
== END 2020-09-16 16:26 ==
LOC: LBN 16:06
PROVIDERS: PCP Nurse Practitioner Family; Visit Provider Nurse Practitioner Family
DX: M86.9 Osteomyelitis, unspecified (principal); E11.621 Type 2 diabetes mellitus with foot ulcer
CPT/HCPCS: 80053; 85652; 85025; 86140

== ENCOUNTER 2020-09-22 09:06 | Outpatient (REF) | payer MEDICAID, SELFPAY ==
[2020-09-22 13:21] LABS: Abs Immature Grans 0.01 10^3/uL (0.0-0.06); Absolute Basophil Count 0.05 10^3/uL (0.0-0.2); Absolute Eosinophil Count 0.53 10^3/uL (0.0-0.7); Absolute Lymphocyte Count 2.04 10^3/uL (1.2-3.4); Absolute Monocyte Count 0.63 10^3/uL (0.1-0.8); Basophils % 0.7; HCT 40.4 % (40.0-50.0); HGB 13.5 g/dL (13.5-17.5); Immature Grans % 0.1; MCH 29.5 pg (27.0-33.0); MCHC 33.4 % (32.0-36.0); MCV 88.4 fL (80-95); MPV 9.8 fL (8.0-11.0); Monocytes % 8.3; Neutrophils % 56.9; Nucleated RBC 0 %; Platelet Count 275 10^3/uL (130-400); RBC 4.57 10^6/uL (4.36-5.78); RDW 13.6 % (11.8-14.1); RDW-SD 43.8 fL; WBC 7.56 10^3/uL (4.4-10.8)
[2020-09-22 13:39] LABS: ALT 29 U/L (16-63); AST 17 U/L (15-37); Albumin 3.1 g/dL (3.4-5.0); Alkaline Phosphatase 119 U/L (46-116); Anion Gap 6.7 mmol/L (3-11); BUN 18 mg/dL (7-18); Bilirubin, Total 0.2 mg/dL (0.2-1.0); CO2 24.3 mmol/L (21.0-32.0); CREATININE 0.76 mg/dL (0.70-1.30); Calcium 7.7 mg/dL (8.5-10.1); Chloride 109 mmol/L (98-107); Glucose 167 mg/dL (74-106); Potassium 3.9 mmol/L (3.5-5.1); Sodium 140 mmol/L (136-145); Total Protein 5.5 g/dL (6.4-8.2)
[2020-09-22 14:00] LABS: C-Reactive Protein < 0.05 mg/dL (0.0-0.3)
[2020-09-22 14:23] LABS: ESR 16 mm/hr (1-20)
== END 2020-09-22 09:26 ==
LOC: LBN 09:06
PROVIDERS: PCP Nurse Practitioner Family; Visit Provider Nurse Practitioner Family
DX: M86.9 Osteomyelitis, unspecified (principal); I11.0 Hypertensive heart disease with heart failure; Z79.2 Long term (current) use of antibiotics
CPT/HCPCS: 80053; 85652; 85025; 86140

== ENCOUNTER 2020-09-30 11:28 | Outpatient (REF) | payer MEDICAID, SELFPAY ==
[2020-09-30 11:54] LABS: Abs Immature Grans 0.02 10^3/uL (0.0-0.06); Absolute Basophil Count 0.05 10^3/uL (0.0-0.2); Absolute Eosinophil Count 0.44 10^3/uL (0.0-0.7); Absolute Lymphocyte Count 1.64 10^3/uL (1.2-3.4); Absolute Monocyte Count 0.51 10^3/uL (0.1-0.8); Basophils % 0.7; Eosinophils % 6.3; HCT 43.1 % (40.0-50.0); HGB 14.5 g/dL (13.5-17.5); Immature Grans % 0.3; Lymphocytes % 23.6; MCH 29.8 pg (27.0-33.0); MCHC 33.6 % (32.0-36.0); MCV 88.5 fL (80-95); MPV 10.1 fL (8.0-11.0); Monocytes % 7.3; Neutrophils % 61.8; Nucleated RBC 0 %; Platelet Count 238 10^3/uL (130-400); RBC 4.87 10^6/uL (4.36-5.78); RDW 13.7 % (11.8-14.1); RDW-SD 44.2 fL; WBC 6.96 10^3/uL (4.4-10.8)
[2020-09-30 13:46] LABS: ESR 9 mm/hr (1-20)
[2020-09-30 13:50] LABS: ALT 36 U/L (16-63); AST 21 U/L (15-37); Albumin 3.3 g/dL (3.4-5.0); Alkaline Phosphatase 140 U/L (46-116); Anion Gap 9.9 mmol/L (3-11); BUN 22 mg/dL (7-18); Bilirubin, Total 0.2 mg/dL (0.2-1.0); C-Reactive Protein 0.08 mg/dL (0.0-0.3); CO2 23.1 mmol/L (21.0-32.0); CREATININE 0.69 mg/dL (0.70-1.30); Calcium 7.9 mg/dL (8.5-10.1); Chloride 110 mmol/L (98-107); Glucose 231 mg/dL (74-106); Potassium 4.3 mmol/L (3.5-5.1); Sodium 143 mmol/L (136-145); Total Protein 5.9 g/dL (6.4-8.2)
== END 2020-09-30 11:48 ==
LOC: LBN 11:28
PROVIDERS: PCP Nurse Practitioner Family; Visit Provider Nurse Practitioner Family
DX: M86.9 Osteomyelitis, unspecified (principal); I11.0 Hypertensive heart disease with heart failure; Z79.2 Long term (current) use of antibiotics
CPT/HCPCS: 80053; 85652; 85025; 86140

== ENCOUNTER 2020-10-06 01:26 | Outpatient (CLI) | payer MEDICAID, SELFPAY ==
--- NOTE | 2020-10-06 11:00 | NS.NUTBLAN_ITS ---
ASSESSMENT: Edward returns for F/U related to DM self management and working with his new CGM to interpret data and receive education on the capabilities of the device. He appears to be engaged and making posiive incremental progress with his DM management skill set. He has been able to track his BG and utilize the emoteSharestyle maynor device to take preemptive action on pending hypoglycemic episodes with the arrow trend feature. When asked to review the times during a 14 day period when he was able to offset these episodes he demonstrated his ability to revisit the dates on the device and tried to recall his food intake on those days. He had some trouble remembering his exact meals but was able to explain the steps he took when he saw his BG trending downward to avoid dangerous levels. He stated that he was able to take these actions prior to feeling any s/s hypoglycemia. He also had a few episodes of high sugar but very few >200mg/dl. We reviewed his PO intake for the day prior to this appointment and used the device to check his BG in the office. Noted: BG was 201 mg/dl. He is on orders for 6u Lantus ( now u -100 type ), but stated that he has been taking 16 u at night. He continues to use the sliding scale for his bolus insulin. Edward also stated he would like some help making choices at the grocery store. Noted: His CGM is set for 70-108mg/dl. INTERVENTION: Together we reviewed Edward's meal choices and counted the CHO's in the meals. We got on the phone with [employer] services representative to help facilitate BG monitoring with both Edward and this RD. We reviewed TIR ( 70% ) and length of TIR ( 16hrs/18min/day) and reviewed optimum glycemic variability ( 36%). Re- educated Edward that he must use the wand at least 4-5X/day to gather solid data for tracking trends. Edward was advised by this RD to contact his PCP to make sure his Basal insulin regimen was accurate. Edward followed up and called me back to state that his MD said he could use the 16 units Lantus at night if he felt comfortable w/ that. Noted: his insulin regimen was decreased significantly by [facility] ~ 30 days ago after serious hypoglycemic episode. Checked with [facility] about accompanying Edward on grocery shopping trips. At this time they can not provide that service r/t Covid-19. Edward has RD contact info for f/u questions r/t meal planing. I commended Edward on his recent progress and encouraged continued contact for support. MONITOR/EVAL: Edward agreed to set up his LibreView feature, continue his healthier eating regimen, and set up f/u appointment with this RD In 30 days to continue to learn more about self management for his DM and get the support he requires to be successful and increase his skill set using his CGM. Time Spent Face To Face: 1 Hour/ 4 Units
== END 2020-10-06 01:46 ==
PROVIDERS: PCP Nurse Practitioner Family; Visit Provider Dietitian, Registered
DX: E11.9 Type 2 diabetes mellitus without complications (principal); Z79.4 Long term (current) use of insulin; Z71.3 Dietary counseling and surveillance
CPT/HCPCS: 97803

== ENCOUNTER 2020-10-07 11:27 | Outpatient (REF) | payer MEDICAID, SELFPAY ==
[2020-10-07 12:54] LABS: Abs Immature Grans 0.03 10^3/uL (0.0-0.06); Absolute Basophil Count 0.06 10^3/uL (0.0-0.2); Absolute Eosinophil Count 0.48 10^3/uL (0.0-0.7); Absolute Lymphocyte Count 1.87 10^3/uL (1.2-3.4); Absolute Monocyte Count 0.55 10^3/uL (0.1-0.8); Absolute Neutrophil Count 4.72 10^3/uL (1.2-6.7); Basophils % 0.8; Eosinophils % 6.2; HCT 44.2 % (40.0-50.0); HGB 14.7 g/dL (13.5-17.5); Immature Grans % 0.4; Lymphocytes % 24.3; MCH 29.5 pg (27.0-33.0); MCHC 33.3 % (32.0-36.0); MCV 88.6 fL (80-95); MPV 9.9 fL (8.0-11.0); Monocytes % 7.1; Neutrophils % 61.2; Nucleated RBC 0 %; Platelet Count 235 10^3/uL (130-400); RBC 4.99 10^6/uL (4.36-5.78); RDW 13.8 % (11.8-14.1); RDW-SD 44.2 fL; WBC 7.71 10^3/uL (4.4-10.8)
[2020-10-07 13:13] LABS: ALT 41 U/L (16-63); AST 27 U/L (15-37); Albumin 3.6 g/dL (3.4-5.0); Alkaline Phosphatase 115 U/L (46-116); Anion Gap 8.4 mmol/L (3-11); BUN 24 mg/dL (7-18); Bilirubin, Total 0.3 mg/dL (0.2-1.0); C-Reactive Protein 0.06 mg/dL (0.0-0.3); CO2 23.6 mmol/L (21.0-32.0); CREATININE 0.79 mg/dL (0.70-1.30); Calcium 8.3 mg/dL (8.5-10.1); Chloride 106 mmol/L (98-107); Glucose 197 mg/dL (74-106); Potassium 4.3 mmol/L (3.5-5.1); Sodium 138 mmol/L (136-145); Total Protein 6.2 g/dL (6.4-8.2)
[2020-10-07 14:13] LABS: ESR 14 mm/hr (1-20)
== END 2020-10-07 11:47 ==
LOC: LBN 11:27
PROVIDERS: PCP Nurse Practitioner Family; Visit Provider Nurse Practitioner Family
DX: M86.9 Osteomyelitis, unspecified (principal); I11.0 Hypertensive heart disease with heart failure; Z79.2 Long term (current) use of antibiotics
CPT/HCPCS: 80053; 85652; 85025; 86140

== ENCOUNTER 2020-10-13 10:50 | Outpatient (REF) | payer MEDICAID, SELFPAY ==
[2020-10-13 11:33] LABS: Abs Immature Grans 0.02 10^3/uL (0.0-0.06); Absolute Basophil Count 0.06 10^3/uL (0.0-0.2); Absolute Eosinophil Count 0.43 10^3/uL (0.0-0.7); Absolute Lymphocyte Count 2.18 10^3/uL (1.2-3.4); Absolute Neutrophil Count 3.62 10^3/uL (1.2-6.7); Basophils % 0.9; Eosinophils % 6.2; HCT 42.2 % (40.0-50.0); HGB 14.3 g/dL (13.5-17.5); Immature Grans % 0.3; Lymphocytes % 31.5; MCH 30.1 pg (27.0-33.0); MCHC 33.9 % (32.0-36.0); MCV 88.8 fL (80-95); MPV 9.9 fL (8.0-11.0); Monocytes % 8.7; Neutrophils % 52.4; Nucleated RBC 0 %; Platelet Count 193 10^3/uL (130-400); RBC 4.75 10^6/uL (4.36-5.78); RDW 13.8 % (11.8-14.1); RDW-SD 44.8 fL; WBC 6.91 10^3/uL (4.4-10.8)
[2020-10-13 12:02] LABS: ALT 30 U/L (16-63); AST 16 U/L (15-37); Albumin 3.3 g/dL (3.4-5.0); Alkaline Phosphatase 125 U/L (46-116); Anion Gap 8.8 mmol/L (3-11); BUN 23 mg/dL (7-18); Bilirubin, Total 0.2 mg/dL (0.2-1.0); C-Reactive Protein 0.08 mg/dL (0.0-0.3); CO2 24.2 mmol/L (21.0-32.0); CREATININE 0.64 mg/dL (0.70-1.30); Calcium 7.7 mg/dL (8.5-10.1); Chloride 110 mmol/L (98-107); Glucose 172 mg/dL (74-106); Potassium 3.7 mmol/L (3.5-5.1); Sodium 143 mmol/L (136-145); Total Protein 5.8 g/dL (6.4-8.2)
[2020-10-13 13:17] LABS: ESR 11 mm/hr (1-20)
== END 2020-10-13 11:10 ==
LOC: NCHCN 10:50
PROVIDERS: PCP Nurse Practitioner Family; Visit Provider Nurse Practitioner Family
DX: M86.171 Other acute osteomyelitis, right ankle and foot (principal); I11.0 Hypertensive heart disease with heart failure; Z79.2 Long term (current) use of antibiotics
CPT/HCPCS: 80053; 85652; 85025; 86140

== ENCOUNTER 2021-01-29 15:48 | Outpatient (REF) | payer MEDICAID, SELFPAY ==
--- NOTE | 2021-01-29 13:30 | ORMUBX_PTH ---
PATIENT: Ganesh Tang JR LOC: N U#:[id number] AGE/SX: 55/M ROOM: RE01/29/[address]: Jase Schuster MD : [id number] BED: DIS: 01/29/2021 SPEC #: [id number] RECD: 01/29/21 18:04 STATUS: LUL REMike #: [id number] RADHA: 01/29/21 13:[address]: Jase Schuster DEPT: Surgical Specimen RECD BY: Lyla Jerez ENTERED: 01/29/21 18:06 SP TYPE: ORMUBX OTHR DR: Camilla Sherman APRN Tissues: 1 - MUCOSA, NOS Procedures: GROSS AND MICRO LEVEL 4 SPECIAL STAIN 1 Comments: [id number]
== END 2021-01-29 15:49 | disposition home or self-care (01) ==
LOC: LBN 15:48
PROVIDERS: PCP Nurse Practitioner Family; Visit Provider Otolaryngology
DX: D10.39 Benign neoplasm of other parts of mouth (principal)
CPT/HCPCS: 88305; 88312

== ENCOUNTER 2021-07-09 03:16 | Outpatient (CLI) | payer MEDICAID, SELFPAY ==
--- NOTE | 2021-07-09 11:00 | NS.NUTBLAN_ITS ---
Edward returns for Medical Nutrition Therapy for diabetes self management education. He uses a Flako 14 day continuous glucose monitor and brings it in for down load. He reports that his A1C was 11.8 in May since he had stopped using his lantus insulin and was not taking his meal time insulin. He had also stopped his metformin. Wt: 260 lbs. Food recored indicates mostly well balanced meals, however, skips meals frequently. In June, he restarted his 51 u lantus in AM, and his 1000 mg metformin BID. Glycemic Report from last 14 days from CGM indicates: In target range: 83% of time High blood sugars 12% of time Low blood sugars 4% of time no very high or very low glucose readings. Overall, blood sugars well controlled at this time with above insulin regime. He reports not taking meal time insulin until numbers are > 180 mg/dl. This occurs infrequently. If Edward continues to take his 51 units lantus, 1000 mg metformin BID, suspect next A1C will be much improved. Edward reports stopping meds due to depression. [facility] case workers joined Edward today at meeting and has been a great advocate for him. No follow up planned at this time.
== END 2021-07-09 03:17 | disposition home or self-care (01) ==
LOC: DS 03:16
PROVIDERS: PCP Nurse Practitioner Family; Visit Provider Dietitian, Registered
DX: E11.9 Type 2 diabetes mellitus without complications (principal); Z79.4 Long term (current) use of insulin; Z71.3 Dietary counseling and surveillance
CPT/HCPCS: 97803

== ENCOUNTER 2021-11-04 00:53 | Outpatient (CLI) | payer MEDICAID, SELFPAY ==
--- NOTE | 2021-11-04 13:00 | NS.NUTBLAN_ITS ---
Edward returns for Medical Nutrition Therapy for diabetes self management education. He uses a Flako 14 Continuous Glucose Monitor and brings it in for data down load. Most recent A1C: 7% (down from 11.8% in June 10). Wt: 259 lbs, up 11 lbs in last 12 months. DM meds: 46 units lantus at HS, metformin 1000 mg BID, emphaflozin 25 mg qd, novolog 12-16 units at meals. Edward reports that he sleeps most of the day ( 8am to 4 pm) and then stays up most of the night watching TV and snacking. Food Recall: M&Ms, bolonge sandwich, pickles, german muffin with PB, 1% milk- 2 cups per day Exercise: none- reports frequent dizzy spells and back pain. Ambulatory Glucose Profile: Dates: 10/21/21-11/04/21 Actual Goal Average Blood Sugar: 169 mg/dl 80-120 mg/dl Glucose Management Indicato: 7.4% > 7% Glucose Variability: 33.9% < 36% Time In Range (70-180 mg/dl) 61% >70% Below 70 mg/dl: 0% < 4% Below 54 mg/dl : 0% < 1% Above 180 mg/dl: 29% < 25% Above 250 mg/dl: 10% < 5% Edward and I reviewed is AGP report and reviewed glycemic excursions. He was able to identify certain meals and snacks that caused hyperglycemia (Pizza with fries, candy). Of note, hyperglycemia most common 6 pm- 11 pm. He reports that he eats during that time. He reports working with Qinti and taking Dm meds as prescribed. Dizzy spells not from hypoglycemia- may need adjustment in BP meds. Edward and I also reviewed carb counting. At this time, he is unwilling to count carbs. Alarms in Flako 2 may help him adjust portions in future. Recommend changing CGM to a FLAKO 2 READER AND FLAKO 2 SENSORS that provide ALARMS for hypo and hyperglycemia and can help him reduce portions that drive his blood sugar up. Follow up scheduled for 12/03/21 at 2 pm
== END 2021-11-04 00:54 | disposition home or self-care (01) ==
LOC: DS 00:53
PROVIDERS: PCP Nurse Practitioner Family; Visit Provider Dietitian, Registered
DX: E11.9 Type 2 diabetes mellitus without complications (principal); Z79.4 Long term (current) use of insulin; Z71.3 Dietary counseling and surveillance
CPT/HCPCS: 97803

== ENCOUNTER 2021-11-25 03:49 | Outpatient (CLI) | payer MEDICAID, SELFPAY ==
[2021-11-25 13:13] LABS: Abs Immature Grans 0.04 10^3/uL (0.0-0.06); Absolute Basophil Count 0.08 10^3/uL (0.0-0.2); Absolute Eosinophil Count 0.26 10^3/uL (0.0-0.7); Absolute Lymphocyte Count 1.95 10^3/uL (1.2-3.4); Absolute Monocyte Count 0.57 10^3/uL (0.1-0.8); Absolute Neutrophil Count 5.11 10^3/uL (1.2-6.7); Eosinophils % 3.2; HCT 50.2 % (40.0-50.0); Immature Grans % 0.5; Lymphocytes % 24.3; MCH 31.3 pg (27.0-33.0); MCHC 33.9 % (32.0-36.0); MCV 92.4 fL (80-95); MPV 9.1 fL (8.0-11.0); Monocytes % 7.1; Neutrophils % 63.9; Nucleated RBC 0 %; Platelet Count 221 10^3/uL (130-400); RBC 5.43 10^6/uL (4.36-5.78); RDW 12.7 % (11.8-14.1); RDW-SD 43.3 fL; WBC 8.01 10^3/uL (4.4-10.8)
[2021-11-25 14:12] LABS: COMMENT (LAB VIEW ONLY) 123.71 mg/dL
[2021-11-25 14:14] LABS: Microalb ug/mg Crea 129.3 ug/mg Cr
[2021-11-25 15:00] LABS: ALT 60 U/L (16-63); AST 32 U/L (15-37); Albumin 4.4 g/dL (3.4-5.0); Alkaline Phosphatase 80 U/L (46-116); BUN 30 mg/dL (7-18); Bilirubin, Total 0.5 mg/dL (0.2-1.0); CREATININE 1.3 mg/dL (0.70-1.30); Calcium 9.4 mg/dL (8.5-10.1); Calculated LDL 39 mg/dL (<100); Chloride 102 mmol/L (98-107); Cholesterol 127 mg/dL (<200); Glucose 181 mg/dL (74-106); HDL Cholesterol 35 mg/dL (40-60); Potassium 5.1 mmol/L (3.5-5.1); Sodium 143 mmol/L (136-145); Total Protein 7.4 g/dL (6.4-8.2); Triglyceride 268 mg/dL (<150)
[2021-11-26 10:26] LABS: HIV-1/2 Ag & Ab Screen Negative (Negative)
== END 2021-11-25 03:50 | disposition home or self-care (01) ==
LOC: LBO 03:49
PROVIDERS: PCP Nurse Practitioner Family; Visit Provider Nurse Practitioner Family
DX: Z51.81 Encounter for therapeutic drug level monitoring (principal); E11.319 Type 2 diabetes mellitus with unspecified diabetic retinopathy without macular edema; I10 Essential (primary) hypertension; Z79.4 Long term (current) use of insulin; E83.42 Hypomagnesemia; Z11.4 Encounter for screening for human immunodeficiency virus [HIV]; E78.5 Hyperlipidemia, unspecified
CPT/HCPCS: 36415; 80053; 80061; 87389; 82043; 82570; 83036; 83735; 85025

== ENCOUNTER 2022-03-29 01:58 | Outpatient (CLI) | payer MEDICAID, SELFPAY ==
--- NOTE | 2022-03-29 12:00 | NS.NUTBLAN_ITS ---
Edward was referred for diabetes self management education. He recently received a Flako 2 continuous glucose monitor with alarms. Session today included programing new reader and reviewing glycemic data from last 14 days (March 16- March 29, 2022). Ambulatory Glucose Profile: Average Blood Sugars: 249 mg/dl. Time in Range (70-180 mg/dl) 11% 181-250 mg/dl: 46% of time > 250 mg/dl: 43% of time No hypoglycemia Edward has not hit glycemic targets in last 14 days. It appears by the graph, that he has not taken insulin at all. After long discussion, he admits to not taking meal time insulin. Edward reports taking 10 mg Jardiance qd, 1000 mg metformin BID, 50 units lantus HS. He was under the impression not to take meal time insulin unless blood sugars > 300 mg/dl before meals. He is prescribed 12 units rapid insulin at meals. He reports that all his insulin is up to date and keeps insulin at room temperature. He reports injecting into his upper arm. Session today focused on importance of taking meal time insulin at all meals. He may also benefit from splitting the lantus dose to BID (25 u AM, 25 u PM). Diet recall indicated high intake of simple carbs, however, he has stopped drinking daily. We reviewed basic diabetes meal recommendations. He does most of the cooking at home. He reports not walking daily as he often sleeps during day. Has been having a lot of issues with insomnia. Seeing counselor weekly. May benefit from a sleep aid. Edward is very motivated to improve his blood sugar numbers however, will need to start taking insulin at all meals, improve his meal choices, sleep consistently and incorporate exercise daily Follow up planned 04/13/22 at 1 pm.
== END 2022-03-29 01:59 | disposition home or self-care (01) ==
LOC: DS 01:58
PROVIDERS: PCP Nurse Practitioner Family; Visit Provider Dietitian, Registered
DX: E11.9 Type 2 diabetes mellitus without complications (principal); Z79.4 Long term (current) use of insulin; Z79.84 Long term (current) use of oral hypoglycemic drugs; Z71.3 Dietary counseling and surveillance
CPT/HCPCS: 97803

== ENCOUNTER → 2022-09-28 14:21 | Outpatient (CLI) | payer MEDICARE, MEDICAID, SELFPAY ==
--- NOTE | 2022-09-28 | DI.RAD_ITS ---
Exam(s) XR WRIST RT COMPL NAVICULAR EXAM: XR WRIST RT COMPL NAVICULAR CLINICAL HISTORY: RIGHT WRIST PAIN-M25.531. TECHNIQUE: 2D digital imaging was performed of the right wrist. Four views were obtained. Scaphoid, PA, lateral and oblique views were obtained. COMPARISON: No exams were available for comparison FINDINGS: BONES: No acute fracture is present. No bony destructive lesion is seen. JOINTS: The carpal bones are normally aligned. SOFT TISSUE: Vascular calcifications are present. IMPRESSION: No acute abnormality. DATA REPOSITORY: RADIATION DOSE DELIVERED:
== END ==
PROVIDERS: PCP Nurse Practitioner Family; Visit Provider Nurse Practitioner Family
DX: M25.531 Pain in right wrist (principal)
CPT/HCPCS: 73110

== ENCOUNTER 2022-12-21 03:08 | Outpatient (CLI) | payer MEDICARE, MEDICAID, SELFPAY ==
[2022-12-21 12:53] LABS: Abs Immature Grans 0.05 10^3/uL (0.0-0.06); Absolute Basophil Count 0.08 10^3/uL (0.0-0.2); Absolute Eosinophil Count 0.44 10^3/uL (0.0-0.7); Absolute Lymphocyte Count 2.25 10^3/uL (1.2-3.4); Absolute Monocyte Count 0.66 10^3/uL (0.1-0.8); Absolute Neutrophil Count 6.56 10^3/uL (1.2-6.7); Basophils % 0.8; Eosinophils % 4.4; HCT 53.4 % (40.0-50.0); HGB 17.6 g/dL (13.5-17.5); Immature Grans % 0.5; Lymphocytes % 22.4; MCH 29.5 pg (27.0-33.0); MCV 89 fL (80-95); Monocytes % 6.6; Neutrophils % 65.3; Platelet Count 235 10^3/uL (130-400); RBC 5.97 10^6/uL (4.36-5.78); RDW-SD 42.5 fL; WBC 10.04 10^3/uL (4.4-10.8)
[2022-12-21 13:21] LABS: Hemoglobin A1C 7.1 % (<5.7)
[2022-12-21 13:38] LABS: COMMENT (LAB VIEW ONLY) 77.53 mg/dL; Microalb ug/mg Crea 40.5 ug/mg Cr
[2022-12-21 13:47] LABS: ALT 81 U/L (16-63); AST 57 U/L (15-37); Albumin 4.4 g/dL (3.4-5.0); Alkaline Phosphatase 111 U/L (46-116); Anion Gap 8.3 mmol/L (3-11); BUN 32 mg/dL (7-18); Bilirubin, Total 0.6 mg/dL (0.2-1.0); CO2 28.7 mmol/L (21.0-32.0); CREATININE 1.3 mg/dL (0.70-1.30); Calcium 9.9 mg/dL (8.5-10.1); Calculated LDL 39 mg/dL (<100); Chloride 100 mmol/L (98-107); Cholesterol 144 mg/dL (<200); Estimated GFR 63.28 (mL/min/1.73m2); Glucose 253 mg/dL (74-106); HDL Cholesterol 41 mg/dL (40-60); Potassium 4.6 mmol/L (3.5-5.1); Sodium 137 mmol/L (136-145); Total Protein 7.9 g/dL (6.4-8.2); Triglyceride 322 mg/dL (<150)
== END 2022-12-21 03:09 | disposition home or self-care (01) ==
LOC: LBO 03:08
PROVIDERS: PCP Nurse Practitioner Family; Visit Provider Nurse Practitioner Family
DX: I10 Essential (primary) hypertension (principal); E11.65 Type 2 diabetes mellitus with hyperglycemia; Z79.4 Long term (current) use of insulin; E78.5 Hyperlipidemia, unspecified
CPT/HCPCS: 36415; 80053; 80061; 82043; 82570; 83036; 83735; 85025

== ENCOUNTER 2023-02-10 11:35 | Outpatient (CLI) | payer MEDICARE, MEDICAID, SELFPAY ==
--- NOTE | 2023-02-10 11:30 | RT.EKG_ITS ---
APPROVED REPORT Exam: Resting ECG Reason for Exam: lightheadedness Patient Location: O HR:77 bpm ECG Measurements Heart Rate 77 AXIS ID 176 P 24 QRSd 123 QRS -48 QT 399 T 37 QTc 452 Conclusion Sinus rhythm...normal P axis, V-rate 50- 99
== END 2023-02-10 11:36 | disposition home or self-care (01) ==
LOC: DI.KIM 11:38
PROVIDERS: PCP Nurse Practitioner Family; Visit Provider Nurse Practitioner Family
DX: R42 Dizziness and giddiness (principal)
CPT/HCPCS: 93010

== ENCOUNTER 2023-02-25 15:14 | Outpatient (CLI) | payer MEDICARE, MEDICAID, SELFPAY ==
[2023-02-25 15:37] LABS: TSH (W/Ref FT4) 4.03 uIU/mL (0.36-3.74)
[2023-02-25 16:02] LABS: FREE T4 0.91 ng/dL (0.76-1.46)
== END 2023-02-25 15:15 | disposition home or self-care (01) ==
LOC: LBO 15:15
PROVIDERS: PCP Nurse Practitioner Family; Visit Provider Nurse Practitioner Family
DX: R53.83 Other fatigue (principal)
CPT/HCPCS: 36415; 84439; 84443

== ENCOUNTER 2023-06-23 04:16 | Outpatient (CLI) | payer OTHER, MEDICAID, SELFPAY ==
[2023-06-23 13:44] LABS: ALT 55 U/L (16-63); AST 35 U/L (15-37); Albumin 4.1 g/dL (3.4-5.0); Alkaline Phosphatase 88 U/L (46-116); Bilirubin, Direct 0.2 mg/dL (0.0-0.2); Bilirubin, Total 0.6 mg/dL (0.2-1.0); TSH (W/Ref FT4) 2.94 uIU/mL (0.36-3.74); Total Protein 7.5 g/dL (6.4-8.2)
[2023-06-23 14:20] LABS: Vitamin B12 371 pg/mL (193-986)
== END 2023-06-23 04:17 | disposition home or self-care (01) ==
PROVIDERS: PCP Nurse Practitioner Family; Visit Provider Nurse Practitioner Family
DX: R79.89 Other specified abnormal findings of blood chemistry (principal); Z86.39 Personal history of other endocrine, nutritional and metabolic disease; E03.8 Other specified hypothyroidism
CPT/HCPCS: 36415; 80076; 82607; 84443

== ENCOUNTER 2023-07-04 10:25 | Outpatient (REF) | payer OTHER, MEDICAID, SELFPAY | END 2023-07-04 10:26 | disposition home or self-care (01) | LOC: LBO 10:25 | PROVIDERS: PCP Nurse Practitioner Family; Visit Provider Nurse Practitioner | DX: R31.9 Hematuria, unspecified (principal); R82.998 Other abnormal findings in urine | CPT/HCPCS: 87086 ==

== ENCOUNTER → 2023-07-18 01:35 | Outpatient (CLI) | payer OTHER, MEDICAID, SELFPAY ==
--- NOTE | 2023-07-18 07:30 | DI.CT_ITS ---
Exam(s) CT ABDOMEN PELVIS WO EXAM: CT ABDOMEN PELVIS WO CLINICAL HISTORY: gross hematuria x 2. Nonsmoker, R31.0. TECHNIQUE: Imaging Protocol: Axial computed tomography images with coronal and sagittal reformatted images were created and reviewed. Oral: no COMPARISON: CT RENAL COLIC WO CONTRAST from 11/19/[address] CHEST PE CTA from 05/15/2019 FINDINGS: ABDOMEN: Lung Bases: Scattered patchy bilateral ground-glass opacities could indicate viral pneumonitis. Liver: Hepatic steatosis. No measurable mass. Gallbladder and biliary tract: Status post cholecystectomy. No radiodense calculus or dilation. Pancreas: Normal density, no abnormal calcifications or inflammatory process. Spleen: Normal. Kidneys: Normal size, contour and axis. 10 millimeter stone left renal pelvis causing only slight lexa al pelvic dilatation. Two other tiny punctate nonobstructing left renal calculi are seen. No masses s een. Adrenal glands: No masses seen. Lymph nodes: Within normal limits. Abdominal Aorta: Abdominal portion non-dilated. PELVIS: Bladder: Symmetric distention, no gross wall thickening. Bowel: No obstruction or bowel wall thickening. Peritoneal cavity: No ascites, collection or mesenteric inflammatory response. Reproductive organs: Prostate within normal limits. Vas deferens heavily calcified. Bones: Degenerative changes in the spine. IMPRESSION: 10 millimeter stone in the left renal pelvis with minimal left renal pelvic dilatation. RADIATION DOSE DELIVERED: 1,456.74mGy.cm Total DLP DATA REPOSITORY: All CT scans at this facility are submitted to the National Radiology Data Registry (NRDR) Dose Index Registry (DIR) with the [employer] (ACR). RADIATION OPTIMIZATION: All CT scans at this facility use at least one of these dose optimization te chniques: automated exposure control; mA and/or kV adjustment per patient size (includes targeted exa ms where dose is matched to clinical indication); or iterative reconstruction.
== END ==
PROVIDERS: PCP Nurse Practitioner Family; Visit Provider Nurse Practitioner
DX: Z90.49 Acquired absence of other specified parts of digestive tract; N20.0 Calculus of kidney
CPT/HCPCS: 74176

== ENCOUNTER → 2023-08-01 12:45 | Outpatient (BNVA) | payer OTHER, SELFPAY | PROVIDERS: PCP Nurse Practitioner Family; Referring Provider Nurse Practitioner Family; Visit Provider Nurse Practitioner Gerontology | DX: R31.0 Gross hematuria (principal); N20.0 Calculus of kidney; E11.65 Type 2 diabetes mellitus with hyperglycemia; I10 Essential (primary) hypertension | CPT/HCPCS: 81003; 99214 ==

== ENCOUNTER 2023-08-01 14:58 | Outpatient (REF) | payer OTHER, SELFPAY ==
[2023-08-01 16:58] LABS: Bilirubin Moderate (Negative); Blood Large (Negative); Clarity Clear (Clear); Glucose 500 mg/dL (Negative); Ketones 40 mg/dL (Negative); Leukocyte Esterase Negative (Negative); Nitrite Negative (Negative); Specific Gravity 1.025 (1.005-1.025); Urobilinogen 0.2 mg/dL (Up to 0.2); pH 5.5 (5-8)
[2023-08-01 17:14] LABS: Bacteria Rare HPF (Negative); C & S Indicated? Yes; Casts Negative LPF (Negative); Crystals Negative HPF (Negative); Epithelial Cells Rare HPF (Negative); Mucus Trace (Negative); Other Cells Rare Yeast (Negative); WBC 0-2 HPF (0-5)
== END 2023-08-01 14:59 | disposition home or self-care (01) ==
LOC: LBN 14:58
PROVIDERS: PCP Nurse Practitioner Family; Visit Provider Nurse Practitioner Gerontology
DX: R31.9 Hematuria, unspecified (principal); R82.998 Other abnormal findings in urine
CPT/HCPCS: 81003; 81015; 87086

== ENCOUNTER 2023-08-31 19:02 | Observation (INO) | payer OTHER, SELFPAY ==
[2023-08-31] VITALS (36 sets, daily range): BP systolic 110–163; BP diastolic 52–111; PULSE 58–110; RESP 16–30; TEMP 35.6–36.6; O2SAT 91–97
--- NOTE | 2023-08-31 19:00 | RT.EKG_ITS ---
APPROVED REPORT Exam: Resting ECG Reason for Exam: chest pain Patient Location: E HR:99 bpm ECG Measurements Heart Rate 99 AXIS [place] 187 P 15 QRSd 126 QRS 115 QT 379 T -26 QTc 486 Conclusion Sinus Rhythm Normal PVCs noted, compared to prior
--- NOTE | 2023-08-31 19:00 | DI.RAD_ITS ---
Exam(s) XR PORTABLE CHEST AP EXAM: XR PORTABLE CHEST AP CLINICAL HISTORY: chest pain TECHNIQUE: 2D digital imaging was performed of the chest. One image was obtained. An AP view was ob tained. COMPARISON: CR XR PORTABLE CHEST AP from 12/26/2019 FINDINGS: MEDIASTINUM: Normal. HEART: Normal. PULMONARY VASCULATURE: Normal. LUNGS: Clear. PLEURAL SPACE: No pleural effusion or pneumothorax. BONE:Within normal limits for the patient's age. OTHER FINDINGS:Normal. IMPRESSION: No acute pulmonary findings. DATA REPOSITORY: RADIATION DOSE DELIVERED:
[2023-08-31 19:21] LABS: Abs Immature Grans 0.02 10^3/uL (0.0-0.06); Absolute Basophil Count 0.06 10^3/uL (0.0-0.2); Absolute Eosinophil Count 0.23 10^3/uL (0.0-0.7); Absolute Monocyte Count 0.62 10^3/uL (0.1-0.8); Absolute Neutrophil Count 3.63 10^3/uL (1.2-6.7); Basophils % 0.8; Eosinophils % 3.2; HGB 15.2 g/dL (13.5-17.5); Immature Grans % 0.3; Lymphocytes % 36.3; MCH 30.2 pg (27.0-33.0); MCHC 34.5 % (32.0-36.0); MCV 87 fL (80-95); MPV 8.7 fL (8.0-11.0); Monocytes % 8.7; Neutrophils % 50.7; Platelet Count 196 10^3/uL (130-400); RBC 5.04 10^6/uL (4.36-5.78); RDW 13.5 % (11.8-14.1); RDW-SD 43.3 fL; WBC 7.16 10^3/uL (4.4-10.8)
[2023-08-31 19:31] LABS: INR 1.2 (0.9-1.1); Prothrombin Time 12.2 sec (9.1-11.1)
[2023-08-31 19:38] LABS: Albumin 3.5 g/dL (3.4-5.0); Alkaline Phosphatase 109 U/L (46-116); Anion Gap 8.3 mmol/L (3-11); BUN 21 mg/dL (7-18); Bilirubin, Total 0.3 mg/dL (0.2-1.0); CO2 26.7 mmol/L (21.0-32.0); CREATININE 1.1 mg/dL (0.70-1.30); Calcium 9.1 mg/dL (8.5-10.1); Chloride 103 mmol/L (98-107); Estimated GFR 77.33 (mL/min/1.73m2); Glucose 152 mg/dL (74-106); Magnesium 1.6 mg/dL (1.8-2.4); Potassium 3.6 mmol/L (3.5-5.1); Sodium 138 mmol/L (136-145); Troponin I < 50 ng/L (<or=60)
--- NOTE | 2023-08-31 19:42 | DI.VRAD_ITS ---
PROCEDURE INFORMATION: Exam: XR Chest Exam date and time: 08/31/2023 7:28 PM Age: 57 years old Clinical indication: Other: Chest pain; Prior surgery; Surgery date: 6+ months; Surgery type: Heart stents TECHNIQUE: Imaging protocol: Radiologic exam of the chest. Views: 1 view. COMPARISON: CR XR CHEST 2V PA LATERAL 01/19/2020 12:46 PM FINDINGS: Lungs: The lungs are clear. There is no pulmonary vascular congestion. Pleural spaces: There are no pleural effusions present. There is no evidence of pneumothorax. Heart/Mediastinum: Heart size is difficult to evaluate due to low lung volumes, but may be near the upper limits of normal. Bones/joints: Unremarkable. IMPRESSION: No active cardiopulmonary disease identified. Dictated and Authenticated by: Norberto Rangel MD. Ordering:HEATHER Delgado MD
--- NOTE | 2023-08-31 19:42 | ED.GENADUL_ITS ---
Discharge Plan Discharge Details Chief Complaint: Chest/Rib Primary Care Provider: Camilla Sherman ED Provider: Song Pascal Home Meds and New Rx's Prescriptions: No Action metoprolol succinate 50 mg tablet extended release 24 hr 50 mg PO DAILY Qty: 90 3RF Ozempic 0.25 mg or 0.5 mg (2 mg/3 mL) pen injector 0.25 - 0.5 mg subcut QWEEK Qty: 10 3RF Rx Instructions: Take 0.25 mg once weekly for 4 weeks then increase to 0.5 mg weekly thereafter cyanocobalamin (vitamin B-12) 1,000 mcg tablet 1,000 mcg PO DAILY Qty: 90 3RF triamcinolone acetonide 0.5 % cream 1 applic TP .BID-QID Qty: 15 0RF Rx Instructions: Apply thin film to affected area(s) two-four times daily until resolution ammonium lactate 12 % cream 1 applic TP QD-BID PRN (Reason: dry skin) Qty: 140 3RF (DME) lancets Misc See Rx Instructions .ROUTE .MEDSUPPLY Qty: 400 3RF Rx Instructions: As directed to check blood glucose four times daily. On insulin. Dispense covered brand. bupropion HCl 150 mg tablet extended release 24 hr 150 mg PO QAM Rx Instructions: Dose increased 07/2022 insulin degludec [Tresiba FlexTouch U-100] 100 unit/mL (3 mL) insulin pen 62 unit subcut QHS Qty: 20 3RF (DME) pen needle, diabetic [BD Ultra-Fine Short Pen Needle] 31 gauge x 5/16 needle See Rx Instructions .ROUTE .COMPLEX Qty: 400 3RF Dose Instruction: USE ONCE DAILY TO ADMINISTER LANTUS Rx Instructions: Use as directed to administer insulin 4 times daily. (DME) Blood Glucose Test Strip See Rx Instructions .ROUTE .MEDSUPPLY Qty: 400 3RF Rx Instructions: As directed to check blood glucose QID. On insulin. Dispense covered brand. alcohol swabs [Alcohol Pads] Pads, Medicated 1 pad topical QID Qty: 400 3RF nitroglycerin 0.4 mg tablet, sublingual 0.4 mg SL Q5M MDD 3 doses PRN (Reason: chest pain) Qty: 30 0RF Rx Instructions: Take 0.4 mg every 5 minutes up to 3 doses; seek emergent medical care if no relief (DME) FreeStyle Flako 2 [place] Misc See Rx Instructions .ROUTE .MEDSUPPLY Qty: 1 0RF Rx Instructions: As directed aspirin 81 mg tablet,chewable 81 mg PO DAILY Qty: 90 3RF Hold Instructions: Home Medication placed on hold at Doctor's office sertraline [Zoloft] 100 mg tablet 200 mg PO DAILY Qty: 180 3RF clopidogrel 75 mg tablet See Rx Instructions .ROUTE .COMPLEX Qty: 90 0RF Hold Instructions: Home Medication placed on hold at Doctor's office Dose Instruction: TAKE 1 TABLET BY MOUTH DAILY Rx Instructions: TAKE 1 TABLET BY MOUTH DAILY metformin 1,000 mg tablet 1,000 mg PO BID Qty: 180 3RF Rx Instructions: spironolactone 25 mg tablet 12.5 mg PO DAILY Qty: 45 3RF lisinopril 2.5 mg tablet 2.5 mg PO DAILY Qty: 90 3RF Jardiance 25 mg tablet See Rx Instructions .ROUTE .COMPLEX Qty: 90 3RF Dose Instruction: TAKE 1 TABLET BY MOUTH DAILY Rx Instructions: TAKE 1 TABLET BY MOUTH DAILY pantoprazole 40 mg tablet,delayed release (DR/EC) See Rx Instructions .ROUTE .COMPLEX Qty: 90 3RF Dose Instruction: TAKE 1 TABLET BY MOUTH EVERY MORNING AT LEAST 30 MINUTES BEFORE FIRST MEAL Rx Instructions: TAKE 1 TABLET BY MOUTH EVERY MORNING AT LEAST 30 MINUTES BEFORE FIRST MEAL magnesium oxide 400 mg (241.3 mg magnesium) tablet 400 mg PO DAILY Qty: 90 3RF rosuvastatin [Crestor] 40 mg tablet 40 mg PO HS Qty: 90 3RF Rx Instructions: FOR CHOLESTEROL & HEART PROTECTION insulin aspart U-100 [Novolog FlexPen U-100 Insulin] 100 unit/mL (3 mL) insulin pen See Rx Instructions subcut AC Qty: 45 3RF Rx Instructions: 12-16 units per sliding scale subcut before meals; (DME) FreeStyle Flako 2 Sensor Kit See Rx Instructions .ROUTE .COMPLEX Qty: 2 0RF Dose Instruction: TO MAINTAIN HBA1C LESS THAN 7%; DIRECTED Rx Instructions: TO MAINTAIN HBA1C LESS THAN 7%; DIRECTED Medical Decision Making Emergent evaluation of chest pain. Patient is high risk and has multiple medical comorbidities and has not been compliant with his medication. His EKG from EMS was reviewed and this is grossly abnormal with a wide-complex tachycardia. EKG in the emergency department has normalized to a sinus rhythm with a rate of 99. He is having PVCs. He has no chest pain at this time. His blood pressure is slightly elevated. Initial differential includes ACS, cardiac dysrhythmia, electrolyte derangement. Initial plan includes telemetry monitoring lab work including cardiac biomarkers. Anticipate serial cardiac biomarkers and possible admission given his risk factors. 2030 patinet complaining of active chest pain at rest. nitro given and pain relieved. concerned for UA. Will discuss [facility] cardiology at [facility]. Will start anticoagulation. Discussed with cat wagon operator at [facility]. They reviewed the EKGs from EMS as well as the ones obtained in this emergency department. No STEMI. No indication for emergent cath 2230 repeat troponin was negative. Discussed with hospitalist here and the patient will be admitted to their service for continued management of unstable angina Medical Records Medical records reviewed: Yes I reviewed the patient's medical records. Imaging Data Radiologic Study: Attestation: I personally reviewed and interpreted this imaging study as follows: My impression: Chest x-ray without significant cardiomegaly, pulmonary edema or pleural effusi on Lab Data Lab results reviewed: Yes I reviewed the patient's lab results. ECG Data Attestation: I personally reviewed and interpreted this ECG (s) as follows: HPI General Date/Time Provider Initiated Documentation: 08/31/23 19:12 . Limitations to Documentation: no limitations . Information obtained by: patient and EMS . HPI Narrative: 57-year-old gentleman with past medical history including hyperlipidemia, obesity, CAD, diabetes, CHF presents for evaluation of cute onset chest pain. Patient was at home resting when he had substernal chest pain. Associated with palpitations and mild shortness of breath. Associated with nausea, no vomiting, no diaphoresis. Patient reports that he took a full dose aspirin and a nitroglycerin and his symptoms resolved. He reports that at this time he feels fine. He reports that he has an upcoming procedure and that he has not been taking his medications because he was told to stop them. Related Data Home Medications Medication Instructions Recorded Confirmed blood sugar diagnostic (Blood #400 ea 06/22/19 08/31/23 Glucose Test strips) ammonium lactate 12 % topical cream 1 applic topical QD-BID PRN dry 10/19/19 08/31/23 skin #140 grams triamcinolone acetonide 0.5 % 1 applic topical .BID-QID #15 grams 10/19/19 08/31/23 topical cream lancets #400 ea 04/24/20 08/31/23 alcohol swabs (Alcohol Pads) 1 pad topical QID Prior to 08/08/20 08/31/23 administering insulin for diabetes #400 ea nitroglycerin 0.4 mg sublingual 0.4 mg sublingual Q5M PRN chest 06/08/21 08/31/23 tablet pain #30 tab-caps flash glucose scanning reader #1 ea 11/11/21 08/31/23 (FreeStyle Flako 2 [place]) aspirin 81 mg chewable tablet 81 mg PO DAILY #90 tab-caps 03/31/22 08/31/23 sertraline 100 mg tablet (Zoloft) 200 mg PO DAILY #180 tab-caps 03/31/22 08/31/23 clopidogrel 75 mg tablet See Rx Instructions .Route 07/06/22 08/31/23 .COMPLEX #90 tabs bupropion HCl 150 mg 24 hr tablet, 150 mg PO QAM 08/23/22 08/31/23 extended release empagliflozin 25 mg tablet See Rx Instructions .Route 11/03/22 08/31/23 (Jardiance) .COMPLEX #90 tabs lisinopril 2.5 mg tablet 2.5 mg PO DAILY #90 tab-caps 11/03/22 08/31/23 metformin 1,000 mg tablet 1,000 mg PO BID diabetes #180 11/03/22 08/31/23 tab-caps spironolactone 25 mg tablet 12.5 mg PO DAILY #45 tab-caps 11/03/22 08/31/23 pantoprazole 40 mg tablet,delayed See Rx Instructions .Route 11/04/22 08/31/23 release .COMPLEX #90 tabs insulin degludec 100 unit/mL (3 62 unit (0.62 mL) subcut QHS Dx: 11/26/22 08/31/23 mL) subcutaneous pen (Tresiba E11.9 to maintain HbA1c less than FlexTouch U-100 insulin) 7% #20 SYRGS magnesium oxide 400 mg (241.3 mg 400 mg PO DAILY #90 tab-caps 11/26/22 08/31/23 magnesium) tablet rosuvastatin 40 mg tablet (Crestor) 40 mg PO HS #90 tab-caps 01/05/23 08/31/23 insulin aspart U-100 100 unit/mL See Rx Instructions subcut AC #45 01/19/23 08/31/23 (3 mL) subcutaneous pen (Novolog mL FlexPen U-100 Insulin aspart) metoprolol succinate 50 mg 50 mg PO DAILY #90 tab-caps 02/10/23 08/31/23 tablet,extended release 24 hr pen needle, diabetic 31 gauge x #400 ea 02/25/23 08/31/2304/05 (BD Ultra-Fine Short Pen Needle) cyanocobalamin (vitamin B-12) 1,000 mcg PO DAILY #90 tab-caps 06/30/23 08/31/23 1,000 mcg tablet semaglutide 0.25 mg or 0.5 mg (2 0.25 - 0.5 mg (0.368 - 0.736 mL) 06/30/23 08/31/23 mg/3 mL) subcutaneous pen injector subcut QWEEK #10 mL (Ozempic) flash glucose sensor (FreeStyle #2 ea 07/28/23 08/31/23 Flako 2 Sensor kit) Previous Rx's Medication Instructions Recorded blood sugar diagnostic (Blood #400 ea 06/22/19 Glucose Test strips) ammonium lactate 12 % topical cream 1 applic topical QD-BID PRN dry 10/19/19 skin #140 grams triamcinolone acetonide 0.5 % 1 applic topical .BID-QID #15 grams 10/19/19 topical cream lancets #400 ea 04/24/20 alcohol swabs (Alcohol Pads) 1 pad topical QID Prior to 08/08/20 administering insulin for diabetes #400 ea nitroglycerin 0.4 mg sublingual 0.4 mg sublingual Q5M PRN chest 06/08/21 tablet pain #30 tab-caps flash glucose scanning reader #1 ea 11/11/21 (FreeStyle Flako 2 [place]) aspirin 81 mg chewable tablet 81 mg PO DAILY #90 tab-caps 03/31/22 sertraline 100 mg tablet (Zoloft) 200 mg PO DAILY #180 tab-caps 03/31/22 clopidogrel 75 mg tablet See Rx Instructions .Route 07/06/22 .COMPLEX #90 tabs empagliflozin 25 mg tablet See Rx Instructions .Route 11/03/22 (Jardiance) .COMPLEX #90 tabs lisinopril 2.5 mg tablet 2.5 mg PO DAILY #90 tab-caps 11/03/22 metformin 1,000 mg tablet 1,000 mg PO BID diabetes #180 11/03/22 tab-caps spironolactone 25 mg tablet 12.5 mg PO DAILY #45 tab-caps 11/03/22 pantoprazole 40 mg tablet,delayed See Rx Instructions .Route 11/04/22 release .COMPLEX #90 tabs insulin degludec 100 unit/mL (3 62 unit (0.62 mL) subcut QHS Dx: 11/26/22 mL) subcutaneous pen (Tresiba E11.9 to maintain HbA1c less than FlexTouch U-100 insulin) 7% #20 SYRGS magnesium oxide 400 mg (241.3 mg 400 mg PO DAILY #90 tab-caps 11/26/22 magnesium) tablet rosuvastatin 40 mg tablet (Crestor) 40 mg PO HS #90 tab-caps 01/05/23 insulin aspart U-100 100 unit/mL See Rx Instructions subcut AC #45 01/19/23 (3 mL) subcutaneous pen (Novolog mL FlexPen U-100 Insulin aspart) metoprolol succinate 50 mg 50 mg PO DAILY #90 tab-caps 02/10/23 tablet,extended release 24 hr pen needle, diabetic 31 gauge x #400 ea 02/25/2304/05 (BD Ultra-Fine Short Pen Needle) cyanocobalamin (vitamin B-12) 1,000 mcg PO DAILY #90 tab-caps 06/30/23 1,000 mcg tablet semaglutide 0.25 mg or 0.5 mg (2 0.25 - 0.5 mg (0.368 - 0.736 mL) 06/30/23 mg/3 mL) subcutaneous pen injector subcut QWEEK #10 mL (Ozempic) flash glucose sensor (FreeStyle #2 ea 07/28/23 Flako 2 Sensor kit) Allergies Allergy/AdvReac Type Severity Reaction Status Date / Time bee venom protein (honey bee) Allergy Severe Swelling/Ed Verified 08/31/23 21:33 capri Penicillins Allergy Unknown Rash Verified 08/31/23 21:33 shellfish derived Allergy Unknown Rash; Verified 08/31/23 21:33 swelling General Stated Complaint: Chest/Rib VAN: 2 PFSH All Active Problems (Updated 08/31/23 @ 23:00 by Keven Friedman MD) Chest pain (Acute) Vitamin B12 deficiency (Acute) Subclinical hypothyroidism (Chronic ~02/2023) Monitor Chronic HFrEF (heart failure with reduced ejection fraction) (Chronic 07/20/18) 2018: LVEF 30-35% at presentation; most recent echo 07/24/2020: LVEF 40-45% Type 2 diabetes mellitus with hyperglycemia, with long-term current use of insulin (Chronic 11/25/15) ASCVD (arteriosclerotic cardiovascular disease) (Chronic 07/28/17) NSTEMI with HFrEF 07/11/2017 s/p MADONNA to mLAD on 07/14/2017 at [facility] [place] Obesity (Chronic) Hypomagnesemia (Chronic) Gastroesophageal reflux disease (Chronic) Microalbuminuria (Chronic) Callus of foot (Chronic) Type 2 diabetes mellitus with retinopathy, with long-term current use of insulin (Chronic 10/27/17) Restless leg syndrome (Chronic 10/31/14) Sleep Medicine Obstructive sleep apnea, adult (Chronic 10/31/14) Pt. states he has not been using device 09/01/20 Severe, C-pap, Dr. Almeida continue on CPAP therapy with mask of choice,heated humidification and ramp. pressure should be set at 12 cm/H2o,alternatively auto CPAP 8-14 cm/H2O can be used. (sleep study note cameron Nonproliferative diabetic retinopathy (Chronic) Noncompliance with medication regimen (Chronic 07/06/13) Hyperlipidemia (Chronic 07/06/13) Erectile dysfunction (Chronic 07/06/13) Essential hypertension (Chronic 07/06/13) Depression (Chronic 11/25/11) Sensorineural hearing loss, bilateral (Chronic 11/24/17) Conductive hearing loss in left ear (Acute) Medical History Diabetic foot ulcer NSTEMI (non-ST elevated myocardial infarction) (07/11/17) 06/2017: S/p MADONNA to mLAD at [facility] [place]; DAPT for a minimum of 1 year Osteomyelitis Tubular adenoma of colon (10/18/14) Surgical History Cholecystectomy Colonoscopy - IV Sedation (10/14/14) tubular adenoma Dr. Blancas Lesion of oral mucosa 01/29/[address] Schuster. 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 No dysplasia. PAS stain negative for fungal organisms S/P coronary artery stent placement s/p MADONNA to LAD mid 2; Dr. Fercho Eddy, 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 pile driver operator helper: No Do you feel safe at home: Yes Do you feel safe in your relationship?: Yes Exam Narrative Exam Narrative: Review of Systems: All systems reviewed & are unremarkable except as noted in HPI and below Exam: Const: Well-appearing, no acute distress, obese HEENT: NACT / Eyes: PERRL, no conjunctival injection, and symmetrical lids / EARS Atraumatic external nose and ears / MOUTH Moist MM / NECK: Symmetric, trachea midline, No thyromegaly / THROAT oropharynx clear CVS: RRR, No murmurs or gallops. Peripheral pulses 2+ and equal in all extremities. Brisk capillary refill in all extremities. RESP: Unlabored respiratory effort, Clear to auscultation bilaterally. No wheezes rales or rhonchi GI: Soft, Nontender/Nondistended, No hepatosplenomegaly. No guarding or rebound. MSK: Extremities w/o deformity or TTP, No cyanosis or clubbing, full range of motion , no edema Skin: Warm, Dry. No rashes or lesions. 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 Sensation grossly intact, no focal neurologic deficits. Psych: (AAO) x3. Appropriate mood and affect Course Vital Signs Vital signs: Vital Signs Temperature 35.6 C L 08/31/23 19:02 Pulse 105 H 08/31/23 19:02 Respiratory Rate 18 08/31/23 19:02 Blood Pressure 163/111 H 08/31/23 19:02 Temperature 35.6 C L 08/31/23 19:02 Temperature Source Tympanic 08/31/23 19:02 Pulse 105 H 08/31/23 19:02 Respiratory Rate 18 08/31/23 19:02 Respiratory Effort Normal 08/31/23 19:35 Respiratory Depth Normal 08/31/23 19:35 Respiratory Pattern Normal 08/31/23 19:35 Blood Pressure 163/111 H 08/31/23 19:02 Blood Pressure Position Supine 08/31/23 19:02 Oxygen Delivery Method Room Air 08/31/23 19:02 Oxygen Flow Rate 0 08/31/23 19:02 Pain Level 0 08/31/23 19:02 Lab/Test Results Lab/Test Results: Laboratory Tests Range/Units 08/31/23 08/31/23 19:06 19:06 WBC (4.4-10.8) 10^3/uL 7.16 RBC (4.36-5.78) 10^6/uL 5.04 Hgb (13.5-17.5) g/dL 15.2 Hct (40.0-50.0) % 44.0 MCV (80-95) fL 87 MCH (27.0-33.0) pg 30.2 MCHC (32.0-36.0) % 34.5 RDW (11.8-14.1) % 13.5 Plt Count (130-400) 10^3/uL 196 MPV (8.0-11.0) fL 8.7 Immature Gran % 0.3 Neutrophils % 50.7 Lymphocytes % 36.3 Monocytes % 8.7 Eosinophils % 3.2 Basophils % 0.8 Nucleated RBC % (0.0-0.3) % 0.0 Absolute Neutrophils (1.2-6.7) 10^3/uL 3.63 Absolute Lymphocytes (1.2-3.4) 10^3/uL 2.60 Absolute Monocytes (0.1-0.8) 10^3/uL 0.62 Absolute Eosinophils (0.0-0.7) 10^3/uL 0.23 Absolute Basophils (0.0-0.2) 10^3/uL 0.06 PT (9.1-11.1) sec 12.2 H INR (0.9-1.1) 1.2 H Critical Care Time Critical Care Time Critical Care Time: Yes Total Critical Care Time: 37 Attestation: Upon my evaluation, this patient had a high probability of imminent or life- threatening deterioration due to unstable angina which required my direct attention, intervention, and personal management. I have personally provided 37 minutes of critical care time exclusive of time spent on separately billable procedures. Time includes review of laboratory data, radiology results, discussion with consultants, and monitoring for potenti al decompensation. Interventions were performed as documented above.
[2023-08-31 20:03] LABS: ALT 30 U/L (16-63); AST 24 U/L (15-37)
--- NOTE | 2023-08-31 20:30 | RT.EKG_ITS ---
APPROVED REPORT Exam: Resting ECG Reason for Exam: CP Patient Location: E HR:96 bpm ECG Measurements Heart Rate 96 AXIS [place] 186 P -17 QRSd 115 QRS -53 QT 392 T 83 QTc 496 Conclusion sinus 96 PVCs no significant change from prior
[2023-08-31] MEDS: nitroGLYcerin 0.4 MG TAB (20:32)
[2023-08-31 20:40] LABS: TSH (W/Ref FT4) 2.86 uIU/mL (0.36-3.74)
[2023-08-31] MEDS: Heparin in 0.45% NaCl 25,000 UNIT/250 ML BAG 10 UNIT IV (21:03)
[2023-08-31 21:08] LABS: PTT Activated 30.8 sec (23.6-32.8)
[2023-08-31 22:21] LABS: Troponin I < 50 ng/L (<or=60)
--- NOTE | 2023-08-31 22:48 | W.PM.HP.N ---
Date of service: 08/31/23 Time of Service: 22:48 Assessment and Plan Assessment and plan (1) Chest pain: Status: Acute Assessment and plan: Though we have no objective evidence at this point, I think this is high probability of ACS (unstable angina) -- and notably possibly precipitated by his mistakenly not taking his beta tish over the past week. I would continue heparin, trend troponin and plan on stress test in AM (note that will continue beta tish on hold pending stress test). Will resume usual DUAP DM: will reduce basal insulin by /, plus SS coverage. Hold oral meds Reviewed ADs, requests Full Code. History of Present Illness History of Present Illness Chief Complaint: CP Narrative: 57 male with h/o DM, CAD, CHF -- patient states that he was told to hold all his medications approx five days [employer] for upcoming urological procedure (though review of records shows this applied only to his antiplatelet agents and one of his diabetic meds (Ozempic)). Regardless, this evening while at rest he experienced an episode of CP which he describes as identical to when he had an VT. Took NTG with relief within 2 minutes and summoned EMS. In ER initial evaluation of note for frequent ventricular ectopy but no ischemic EKG changes and negative troponin. Patient had second episode of CP here in ER, again responsive to NTG. Patient started on heparin infusion, Cardiology consulted, advised repeat troponin and f/u thereafter. Trop #2 negative. I was asked to evaluate for admission. Patient states he feels fine at present, denies CP or SOB. Review of Systems Narrative: per HPI PFSH All Active Problems (Updated 08/31/23 @ 23:00 by Keven Friedman MD) Chest pain (Acute) Vitamin B12 deficiency (Acute) Subclinical hypothyroidism (Chronic ~02/2023) Monitor Chronic HFrEF (heart failure with reduced ejection fraction) (Chronic 07/20/18) 2018: LVEF 30-35% at presentation; most recent echo 07/24/2020: LVEF 40-45% Type 2 diabetes mellitus with hyperglycemia, with long-term current use of insulin (Chronic 11/25/15) ASCVD (arteriosclerotic cardiovascular disease) (Chronic 07/28/17) NSTEMI with HFrEF 07/11/2017 s/p MADONNA to mLAD on 07/14/2017 at [facility] Obesity (Chronic) Hypomagnesemia (Chronic) Gastroesophageal reflux disease (Chronic) Microalbuminuria (Chronic) Callus of foot (Chronic) Type 2 diabetes mellitus with retinopathy, with long-term current use of insulin (Chronic 10/27/17) Restless leg syndrome (Chronic 10/31/14) Sleep Medicine Obstructive sleep apnea, adult (Chronic 10/31/14) Pt. states he has not been using device 09/01/20 Severe, C-pap, Dr. Almeida continue on CPAP therapy with mask of choice,heated humidification and ramp. pressure should be set at 12 cm/H2o,alternatively auto CPAP 8-14 cm/H2O can be used. (sleep study note cameron Nonproliferative diabetic retinopathy (Chronic) Noncompliance with medication regimen (Chronic 07/06/13) Hyperlipidemia (Chronic 07/06/13) Erectile dysfunction (Chronic 07/06/13) Essential hypertension (Chronic 07/06/13) Depression (Chronic 11/25/11) Sensorineural hearing loss, bilateral (Chronic 11/24/17) Conductive hearing loss in left ear (Acute) Medical History Diabetic foot ulcer NSTEMI (non-ST elevated myocardial infarction) (07/11/17) 06/2017: S/p MADONNA to mLAD at [facility]; DAPT for a minimum of 1 year Osteomyelitis Tubular adenoma of colon (10/18/14) Surgical History Cholecystectomy Colonoscopy - IV Sedation (10/14/14) tubular adenoma Dr. Blancas Lesion of oral mucosa 01/29/[address] Schuster. 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 No dysplasia. PAS stain negative for fungal organisms S/P coronary artery stent placement s/p MADONNA to LAD mid 2; Dr. 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: No Do you feel safe at home: Yes Do you feel safe in your relationship?: Yes Meds Allergies and Home Medications Allergies Allergy/AdvReac Type Severity Reaction Status Date / Time bee venom protein (honey bee) Allergy Severe Swelling/Ed Verified 08/31/23 21:33 capri Penicillins Allergy Unknown Rash Verified 08/31/23 21:33 shellfish derived Allergy Unknown Rash; Verified 08/31/23 21:33 swelling Home Medications Medication Instructions Recorded Confirmed Type blood sugar diagnostic (Blood #400 ea 06/22/19 08/31/23 Rx Glucose Test strips) ammonium lactate 12 % topical cream 1 applic topical QD-BID PRN dry 10/19/19 08/31/23 Rx skin #140 grams triamcinolone acetonide 0.5 % 1 applic topical .BID-QID #15 grams 10/19/19 08/31/23 Rx topical cream lancets #400 ea 04/24/20 08/31/23 Rx alcohol swabs (Alcohol Pads) 1 pad topical QID Prior to 08/08/20 08/31/23 Rx administering insulin for diabetes #400 ea nitroglycerin 0.4 mg sublingual 0.4 mg sublingual Q5M PRN chest 06/08/21 08/31/23 Rx tablet pain #30 tab-caps flash glucose scanning reader #1 ea 11/11/21 08/31/23 Rx (FreeStyle Flako 2 [place]) aspirin 81 mg chewable tablet 81 mg PO DAILY #90 tab-caps 03/31/22 08/31/23 Rx sertraline 100 mg tablet (Zoloft) 200 mg PO DAILY #180 tab-caps 03/31/22 08/31/23 Rx clopidogrel 75 mg tablet See Rx Instructions .Route 07/06/22 08/31/23 Rx .COMPLEX #90 tabs bupropion HCl 150 mg 24 hr tablet, 150 mg PO QAM 08/23/22 08/31/23 History extended release empagliflozin 25 mg tablet See Rx Instructions .Route 11/03/22 08/31/23 Rx (Jardiance) .COMPLEX #90 tabs lisinopril 2.5 mg tablet 2.5 mg PO DAILY #90 tab-caps 11/03/22 08/31/23 Rx metformin 1,000 mg tablet 1,000 mg PO BID diabetes #180 11/03/22 08/31/23 Rx tab-caps spironolactone 25 mg tablet 12.5 mg PO DAILY #45 tab-caps 11/03/22 08/31/23 Rx pantoprazole 40 mg tablet,delayed See Rx Instructions .Route 11/04/22 08/31/23 Rx release .COMPLEX #90 tabs insulin degludec 100 unit/mL (3 62 unit (0.62 mL) subcut QHS Dx: 11/26/22 08/31/23 Rx mL) subcutaneous pen (Tresiba E11.9 to maintain HbA1c less than FlexTouch U-100 insulin) 7% #20 SYRGS magnesium oxide 400 mg (241.3 mg 400 mg PO DAILY #90 tab-caps 11/26/22 08/31/23 Rx magnesium) tablet rosuvastatin 40 mg tablet (Crestor) 40 mg PO HS #90 tab-caps 01/05/23 08/31/23 Rx insulin aspart U-100 100 unit/mL See Rx Instructions subcut AC #45 01/19/23 08/31/23 Rx (3 mL) subcutaneous pen (Novolog mL FlexPen U-100 Insulin aspart) metoprolol succinate 50 mg 50 mg PO DAILY #90 tab-caps 02/10/23 08/31/23 Rx tablet,extended release 24 hr pen needle, diabetic 31 gauge x #400 ea 02/25/23 08/31/23 Rx 5/16 (BD Ultra-Fine Short Pen Needle) cyanocobalamin (vitamin B-12) 1,000 mcg PO DAILY #90 tab-caps 06/30/23 08/31/23 Rx 1,000 mcg tablet semaglutide 0.25 mg or 0.5 mg (2 0.25 - 0.5 mg (0.368 - 0.736 mL) 06/30/23 08/31/23 Rx mg/3 mL) subcutaneous pen injector subcut QWEEK #10 mL (Ozempic) flash glucose sensor (FreeStyle #2 ea 07/28/23 08/31/23 Rx Flako 2 Sensor kit) Exam Narrative Exam Narrative: 121/75, 89, 35.6, 21, 94% RA. HEENT atraumatic; neck supple w/o JVD; lungs clear; heart frequent ectopic; abdomen soft and NT; extremities w/o edema; neuro Ox3,lucid, moves all 4s Results Labs 08/31/23 19:06 08/31/23 19:06 Labs: Laboratory Results - last 24 hr 08/31/23 08/31/23 08/31/23 19:06 19:06 19:06 WBC 7.16 RBC 5.04 Hgb 15.2 Hct 44.0 MCV 87 MCH 30.2 MCHC 34.5 RDW 13.5 Plt Count 196 MPV 8.7 Immature Gran % 0.3 Neutrophils % 50.7 Lymphocytes % 36.3 Monocytes % 8.7 Eosinophils % 3.2 Basophils % 0.8 Nucleated RBC % 0.0 Absolute Neutrophils 3.63 Absolute Lymphocytes 2.60 Absolute Monocytes 0.62 Absolute Eosinophils 0.23 Absolute Basophils 0.06 PT 12.2 H INR 1.2 H APTT Sodium 138 Potassium 3.6 Chloride 103 Carbon Dioxide 26.7 Anion Gap 8.3 BUN 21 H Creatinine 1.1 Est GFR (CKD-EPI 2020) 77.33 Glucose 152 H Calcium 9.1 Magnesium 1.6 L Total Bilirubin 0.3 AST 24 ALT 30 Alkaline Phosphatase 109 Troponin I < 50 Total Protein 7.0 Albumin 3.5 TSH 08/31/23 08/31/23 08/31/23 19:06 20:00 21:58 WBC RBC Hgb Hct MCV MCH MCHC RDW Plt Count MPV Immature Gran % Neutrophils % Lymphocytes % Monocytes % Eosinophils % Basophils % Nucleated RBC % Absolute Neutrophils Absolute Lymphocytes Absolute Monocytes Absolute Eosinophils Absolute Basophils PT INR APTT 30.8 Sodium Potassium Chloride Carbon Dioxide Anion Gap BUN Creatinine Est GFR (CKD-EPI 2020) Glucose Calcium Magnesium Total Bilirubin AST ALT Alkaline Phosphatase Troponin I < 50 Total Protein Albumin TSH 2.86 Last Vital Signs Temp 35.6 C L 08/31/23 19:02 Pulse 89 08/31/23 21:17 Resp 21 08/31/23 21:20 BP 121/75 08/31/23 21:17 Pulse Ox 94 08/31/23 21:20 Time Spent Time spent with Patient: 40-54 minutes Time was spent: preparing to see the patient(eg.review tests), obtaining and/or reviewing separately otained hiistory, ordering medications,tests, procedures and referring, communicating with other health certified social workers in health care
[2023-08-31 22:54] LABS: Source Nasal/Nares
[2023-08-31 23:25] LABS: COVID-19 PCR Negative (Negative)
[2023-09-01] VITALS (10 sets, daily range): BP systolic 120–146; BP diastolic 56–83; PULSE 65–92; RESP 16–18; TEMP 36.4–36.6; O2SAT 94–96
--- NOTE | 2023-09-01 | DI.NM_ITS ---
APPROVED REPORT Conclusion This is a resting myocardial perfusion scan. There is a tiny fixed apical defect
[2023-09-01] MEDS: MAGNESIUM SULFATE 2 GM/50 ML BAG IVPB (01:39)
[2023-09-01 03:13] LABS: PTT Activated 48.2 sec (23.6-32.8)
[2023-09-01 06:40] LABS: HCT 42.4 % (40.0-50.0); HGB 14.6 g/dL (13.5-17.5); MCH 30.1 pg (27.0-33.0); MCHC 34.4 % (32.0-36.0); MCV 87 fL (80-95); MPV 8.8 fL (8.0-11.0); Platelet Count 164 10^3/uL (130-400); RBC 4.85 10^6/uL (4.36-5.78); RDW 13.3 % (11.8-14.1); RDW-SD 42.4 fL; WBC 5.82 10^3/uL (4.4-10.8)
[2023-09-01] MEDS: Pantoprazole 40 MG TABCR PO (09:16)
[2023-09-01] MEDS: Insulin Aspart 300 UNITS/3 ML PEN SC ×2 (09:17→11:57)
[2023-09-01] MEDS: Sertraline 100 MG TAB 200 MG PO (09:20)
[2023-09-01] MEDS: Clopidogrel 75 MG TAB PO (09:20)
[2023-09-01] MEDS: buPROPion-XL 150 MG TABCR PO (09:20)
[2023-09-01] MEDS: Aspirin 81 MG CHEW PO (09:21)
[2023-09-01] MEDS: Spironolactone 25 MG TAB 12.5 MG PO (09:21)
[2023-09-01] MEDS: Cyanocobalamin 100 MCG TABLET 1000 MCG PO (09:22)
[2023-09-01 09:53] LABS: Troponin I < 50 ng/L (<or=60)
[2023-09-01 10:09] LABS: PTT Activated 68.4 sec (23.6-32.8)
[2023-09-01] MEDS: Lisinopril 2.5 MG TAB PO (10:28)
--- NOTE | 2023-09-01 10:47 | PDOC.CMIN ---
Date of service: 09/01/23 Time of Service: 10:50 Care Management Initial Assmt Initial Assessment REASON FOR HOSPITALIZATION:: Chest Pain PREVIOUS FUNCTIONAL STATUS/SOCIAL/FAMILY SUPPORTS:: Ganesh lives in an apartment in [facility]. CURRENT FUNCTIONAL STATUS:: Ganesh was talking with the provider when CM attempted to visit. Per MD, there is no stress test available until Tuesday, therefore he will be discharged today with a follow up stress test outpatient. CM contacted Edward's PCP office, as this will have to be ordered by his PCP, per Cardiology. CM will continue to follow. ADVANCE DIRECTIVES:: On file; Candy (mother) listed as HCA; Nancy (sister) listed as alternate HCA. Has patient been provided with info about the portal/API?: Yes Did the patient sign up for the portal?: No CODE STATUS:: Full Code INSURANCE COVERAGE / FINANCIAL ISSUES:: [employer] MCR replacement. MCR. AIYANA. Financial Assist 100%. CURRENT HOME/COMMUNITY SERVICES/EQUIPMENT:: [facility] case management. PRIMARY CARE PHYSICIAN:: Camilla Sherman POTENTIAL DISCHARGE NEEDS:: Follow up appointments PATIENT/FAMILY EDUCATION NEEDS:: Review discharge instructions and limitations, discussion of self care needs including ask me three. ANTICIPATED BARRIERS TO DISCHARGE:: None identified. TRANSPORTATION:: Via private vehicle by family. PLAN:: Anticipate Ganesh will return home with no new services. He will be transported via private vehicle by family. He will follow up with his PCP and discharge plan of care. CM will continue to follow. PFSH All Active Problems Chest pain (Acute) Vitamin B12 deficiency (Acute) Subclinical hypothyroidism (Chronic ~02/2023) Monitor Chronic HFrEF (heart failure with reduced ejection fraction) (Chronic 07/20/18) 2018: LVEF 30-35% at presentation; most recent echo 07/24/2020: LVEF 40-45% Type 2 diabetes mellitus with hyperglycemia, with long-term current use of insulin (Chronic 11/25/15) ASCVD (arteriosclerotic cardiovascular disease) (Chronic 07/28/17) NSTEMI with HFrEF 07/11/2017 s/p MADONNA to mLAD on 07/14/2017 at [facility] [place] Obesity (Chronic) Hypomagnesemia (Chronic) Gastroesophageal reflux disease (Chronic) Microalbuminuria (Chronic) Callus of foot (Chronic) Type 2 diabetes mellitus with retinopathy, with long-term current use of insulin (Chronic 10/27/17) Restless leg syndrome (Chronic 10/31/14) Sleep Medicine Obstructive sleep apnea, adult (Chronic 10/31/14) Pt. states he has not been using device 09/01/20 Severe, C-pap, Dr. Almeida continue on CPAP therapy with mask of choice,heated humidification and ramp. pressure should be set at 12 cm/H2o,alternatively auto CPAP 8-14 cm/H2O can be used. (sleep study note cameron Nonproliferative diabetic retinopathy (Chronic) Noncompliance with medication regimen (Chronic 07/06/13) Hyperlipidemia (Chronic 07/06/13) Erectile dysfunction (Chronic 07/06/13) Essential hypertension (Chronic 07/06/13) Depression (Chronic 11/25/11) Sensorineural hearing loss, bilateral (Chronic 11/24/17) Conductive hearing loss in left ear (Acute) Medical History Osteomyelitis Diabetic foot ulcer Tubular adenoma of colon (10/18/14) NSTEMI (non-ST elevated myocardial infarction) (07/11/17) 06/2017: S/p MADONNA to mLAD at [facility] [place]; DAPT for a minimum of 1 year Surgical History Lesion of oral mucosa 01/29/[address] Schuster. 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 No dysplasia. PAS stain negative for fungal organisms Colonoscopy - IV Sedation (10/14/14) tubular adenoma Dr. Blancas Cholecystectomy S/P coronary artery stent placement s/p MADONNA to LAD mid 2; Dr. 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
--- NOTE | 2023-09-01 14:41 | W.PM.DS.N ---
Date of service: 09/01/23 Time of Service: 14:41 DS: Diagnosis Discharge Diagnosis (1) Chest pain: Status: Acute Discharge Plan Disposition Patient Disposition: Home Condition: Good Discharge Details Reason For Visit: CP Admit Date/Time: 08/31/23 23:42 Admit Provider: Keven Friedman Attending Provider: Keven Friedman Primary Care Provider: Camilla Sherman Hospital Course Hospital Course: 57 yr old male w/ hx of type II DM on insulin, CAD w/ prior coronary stents, presents w/ acute chest pain/pressure occurring while at rest. CP relieved w/ SL NTG. On arrival to E.D. at [facility], chest symptoms had resolved. EKG demonstrated sinus rhythm w/ frequent PVC but no runs of VT, and evidence of old anterior infarct. Serial troponin I were checked and came back normal. He was scheduled for stress MPI w/ lexiscan and the resting scan was completed on the morning of 09/01 but because the project asst left early, the stress scan could not be completed. The next available time for stress testing is for September 05. Diagnostic imaging would not allow the hospitalist to schedule the outpatient completion of his stress test, insisting the order has to come from his PCP. As the patient was pain free and desiring to return home, he was discharged home to follow up w/ his PCP next week and to have his PCP order the stress test. An Rx for Imdur 30 mg was prescribed. Patient should return if he has recurrent chest pain that is not relieved w/ his nitroglycerin. Home Meds and New Rx's Prescriptions: New isosorbide mononitrate 30 mg tablet extended release 24 hr 30 mg PO DAILY Qty: 30 0RF Continued metoprolol succinate 50 mg tablet extended release 24 hr 50 mg PO DAILY Qty: 90 3RF Ozempic 0.25 mg or 0.5 mg (2 mg/3 mL) pen injector 0.25 - 0.5 mg subcut QWEEK Qty: 10 3RF Rx Instructions: Take 0.25 mg once weekly for 4 weeks then increase to 0.5 mg weekly thereafter cyanocobalamin (vitamin B-12) 1,000 mcg tablet 1,000 mcg PO DAILY Qty: 90 3RF triamcinolone acetonide 0.5 % cream 1 applic TP .BID-QID Qty: 15 0RF Rx Instructions: Apply thin film to affected area(s) two-four times daily until resolution ammonium lactate 12 % cream 1 applic TP QD-BID PRN (Reason: dry skin) Qty: 140 3RF (DME) lancets Mis See Rx Instructions .ROUTE .MEDSUPPLY Qty: 400 3RF Rx Instructions: As directed to check blood glucose four times daily. On insulin. Dispense covered brand. bupropion HCl 150 mg tablet extended release 24 hr 150 mg PO QAM Rx Instructions: Dose increased 07/2022 insulin degludec [Tresiba FlexTouch U-100] 100 unit/mL (3 mL) insulin pen 62 unit subcut QHS Qty: 20 3RF (DME) pen needle, diabetic [BD Ultra-Fine Short Pen Needle] 31 gauge x 5/16 needle See Rx Instructions .ROUTE .COMPLEX Qty: 400 3RF Dose Instruction: USE ONCE DAILY TO ADMINISTER LANTUS Rx Instructions: Use as directed to administer insulin 4 times daily. (DME) Blood Glucose Test Strip See Rx Instructions .ROUTE .MEDSUPPLY Qty: 400 3RF Rx Instructions: As directed to check blood glucose QID. On insulin. Dispense covered brand. alcohol swabs [Alcohol Pads] Pads, Medicated 1 pad topical QID Qty: 400 3RF nitroglycerin 0.4 mg tablet, sublingual 0.4 mg SL Q5M MDD 3 doses PRN (Reason: chest pain) Qty: 30 0RF Rx Instructions: Take 0.4 mg every 5 minutes up to 3 doses; seek emergent medical care if no relief (DME) FreeStyle Flako 2 [facility] [place] See Rx Instructions .ROUTE .MEDSUPPLY Qty: 1 0RF Rx Instructions: As directed aspirin 81 mg tablet,chewable 81 mg PO DAILY Qty: 90 3RF Hold Instructions: Home Medication placed on hold at Doctor's office sertraline [Zoloft] 100 mg tablet 200 mg PO DAILY Qty: 180 3RF clopidogrel 75 mg tablet See Rx Instructions .ROUTE .COMPLEX Qty: 90 0RF Hold Instructions: Home Medication placed on hold at Doctor's office Dose Instruction: TAKE 1 TABLET BY MOUTH DAILY Rx Instructions: TAKE 1 TABLET BY MOUTH DAILY metformin 1,000 mg tablet 1,000 mg PO BID Qty: 180 3RF Rx Instructions: spironolactone 25 mg tablet 12.5 mg PO DAILY Qty: 45 3RF lisinopril 2.5 mg tablet 2.5 mg PO DAILY Qty: 90 3RF Jardiance 25 mg tablet See Rx Instructions .ROUTE .COMPLEX Qty: 90 3RF Dose Instruction: TAKE 1 TABLET BY MOUTH DAILY Rx Instructions: TAKE 1 TABLET BY MOUTH DAILY pantoprazole 40 mg tablet,delayed release (DR/EC) See Rx Instructions .ROUTE .COMPLEX Qty: 90 3RF Dose Instruction: TAKE 1 TABLET BY MOUTH EVERY MORNING AT LEAST 30 MINUTES BEFORE FIRST MEAL Rx Instructions: TAKE 1 TABLET BY MOUTH EVERY MORNING AT LEAST 30 MINUTES BEFORE FIRST MEAL magnesium oxide 400 mg (241.3 mg magnesium) tablet 400 mg PO DAILY Qty: 90 3RF rosuvastatin [Crestor] 40 mg tablet 40 mg PO HS Qty: 90 3RF Rx Instructions: FOR CHOLESTEROL & HEART PROTECTION insulin aspart U-100 [Novolog FlexPen U-100 Insulin] 100 unit/mL (3 mL) insulin pen See Rx Instructions subcut AC Qty: 45 3RF Rx Instructions: 12-16 units per sliding scale subcut before meals; (DME) FreeStyle Flako 2 Sensor Kit See Rx Instructions .ROUTE .COMPLEX Qty: 2 0RF Dose Instruction: TO MAINTAIN HBA1C LESS THAN 7%; DIRECTED Rx Instructions: TO MAINTAIN HBA1C LESS THAN 7%; DIRECTED Discharge Instructions Instructions: Isosorbide Mononitrate (By mouth), Angina (DC) Additional Instructions: I have ordered a follow up stress test w/ nuclear scanning for Tuesday, however, your PCP, Camilla Sherman has to order this and get this approved by your insurance for this to be scheduled. If you have further chest pain/pressure, particularly if it is not relieved by your nitroglycerin, call EMS to be brought back to [facility] emergency department. You have been started on a long acting nitrate called isosorbide mononitrate to prevent angina. This does not replace the nitroglycerin tablets that you use to alleviate acute angina episodes. Stand Alone Forms: Nursing Discharge Form Referrals: Camilla Sherman NP [Primary Care Provider] - (patient completed resting MPI but d/t cardiology leaving [facility] early, the stress portion needs rescheduled. Please reach out to D.I. to schedule FAUSTINO) Activity:: Activity as Tolerated Equipment/Supplies:: No Equipment Needed Diet:: Carb Counting Discharge Orders Discharge Orders: Discharge Order (Routine); Ordered 09/01/23 Ordered By: Cachorro Mendoza Other Ambulatory Orders: NM MPI rest & stress grp (Routine) Timeframe: [id number] Location: None Selected Ordered By: Cachorro Mendoza DS: Summary Time Spent with Patient providing and/or coordinating discharge services: Greater than 30 minutes Status at Discharge Functional status at discharge: independent ambulation Overall status at discharge: patient is back to baseline Mental Status: mental status grossly normal Speech and Movement: speech and movement normal Mood: congruent mood Affect: normal affect Exam Narrative Exam Narrative: Middle age obese white male who appears to be comfortable. He denies any chest pain or pressure. He is asking to return home today LUngs: clear Heart: RRR, no murmur or rub or gallops Abdomen: obese, soft, nontender Psych Mental Status: mental status grossly normal Speech and Movement: speech and movement normal Mood: congruent mood Affect: normal affect DS: Data Vitals/I&O Vitals and I&O: Vital Signs Temperature 36.4 C L 09/01/23 09:20 Temperature Source Tympanic 09/01/23 09:20 Pulse 76 09/01/23 09:20 Pulse Rhythm Regular 09/01/23 10:35 Pulse 88 09/01/23 00:31 Respiratory Rate 18 09/01/23 09:20 Respiratory Effort Normal 09/01/23 10:35 Respiratory Depth Normal 09/01/23 10:35 Respiratory Pattern Normal 09/01/23 10:35 Blood Pressure 146/83 H 09/01/23 09:20 Blood Pressure Mean 91 09/01/23 00:31 Blood Pressure Position Supine 08/31/23 19:02 Pulse Oximetry 96 09/01/23 09:20 Oxygen Delivery Method Room Air 09/01/23 09:20 Oxygen Flow Rate 0 09/01/23 09:20 Pain Level 0 09/01/23 09:20 Intake & Output 08/31/23 09/01/23 09/01/23 23:59 11:59 23:59 Intake Total 151.666 / 151.666 Output Total 525 / 525 Balance -373.334 / -373.334 Weight 117 kg 112.945 kg Intake: IV 151.666 / 151.666 Output: Urine 525 / 525 Other: Urine Color Yellow Urine Appearance Cloudy Comment Data entered from paper down-time documentation. Data Completed and Pending Labs on day of discharge: Labs from last 24 hours 09/01/23 09/01/23 09/01/23 09:36 06:08 02:58 WBC 5.82 RBC 4.85 Hgb 14.6 Hct 42.4 MCV 87 MCH 30.1 MCHC 34.4 RDW 13.3 Plt Count 164 MPV 8.8 Immature Gran % Neutrophils % Lymphocytes % Monocytes % Eosinophils % Basophils % Nucleated RBC % Absolute Neutrophils Absolute Lymphocytes Absolute Monocytes Absolute Eosinophils Absolute Basophils PT INR APTT 68.4 H 48.2 H Sodium Potassium Chloride Carbon Dioxide Anion Gap BUN Creatinine Est GFR (CKD-EPI 2020) Glucose Calcium Magnesium Total Bilirubin AST ALT Alkaline Phosphatase Troponin I < 50 Total Protein Albumin TSH COVID-19 Source SARS-CoV-2 (PCR) 08/31/23 08/31/23 08/31/23 22:52 21:58 20:00 WBC RBC Hgb Hct MCV MCH MCHC RDW Plt Count MPV Immature Gran % Neutrophils % Lymphocytes % Monocytes % Eosinophils % Basophils % Nucleated RBC % Absolute Neutrophils Absolute Lymphocytes Absolute Monocytes Absolute Eosinophils Absolute Basophils PT INR APTT Sodium Potassium Chloride Carbon Dioxide Anion Gap BUN Creatinine Est GFR (CKD-EPI 2020) Glucose Calcium Magnesium Total Bilirubin AST ALT Alkaline Phosphatase Troponin I < 50 Total Protein Albumin TSH 2.86 COVID-19 Source Nasal/Nares SARS-CoV-2 (PCR) Negative 08/31/23 19:06 WBC 7.16 RBC 5.04 Hgb 15.2 Hct 44.0 MCV 87 MCH 30.2 MCHC 34.5 RDW 13.5 Plt Count 196 MPV 8.7 Immature Gran % 0.3 Neutrophils % 50.7 Lymphocytes % 36.3 Monocytes % 8.7 Eosinophils % 3.2 Basophils % 0.8 Nucleated RBC % 0.0 Absolute Neutrophils 3.63 Absolute Lymphocytes 2.60 Absolute Monocytes 0.62 Absolute Eosinophils 0.23 Absolute Basophils 0.06 PT 12.2 H INR 1.2 H APTT 30.8 Sodium 138 Potassium 3.6 Chloride 103 Carbon Dioxide 26.7 Anion Gap 8.3 BUN 21 H Creatinine 1.1 Est GFR (CKD-EPI 2020) 77.33 Glucose 152 H Calcium 9.1 Magnesium 1.6 L Total Bilirubin 0.3 AST 24 ALT 30 Alkaline Phosphatase 109 Troponin I < 50 Total Protein 7.0 Albumin 3.5 TSH COVID-19 Source SARS-CoV-2 (PCR) PFSH All Active Problems Chest pain (Acute) Vitamin B12 deficiency (Acute) Subclinical hypothyroidism (Chronic ~02/2023) Monitor Chronic HFrEF (heart failure with reduced ejection fraction) (Chronic 07/20/18) 2018: LVEF 30-35% at presentation; most recent echo 07/24/2020: LVEF 40-45% Type 2 diabetes mellitus with hyperglycemia, with long-term current use of insulin (Chronic 11/25/15) ASCVD (arteriosclerotic cardiovascular disease) (Chronic 07/28/17) NSTEMI with HFrEF 07/11/2017 s/p MADONNA to mLAD on 07/14/2017 at [facility] Obesity (Chronic) Hypomagnesemia (Chronic) Gastroesophageal reflux disease (Chronic) Microalbuminuria (Chronic) Callus of foot (Chronic) Type 2 diabetes mellitus with retinopathy, with long-term current use of insulin (Chronic 10/27/17) Restless leg syndrome (Chronic 10/31/14) Sleep Medicine Obstructive sleep apnea, adult (Chronic 10/31/14) Pt. states he has not been using device 09/01/20 Severe, C-pap, Dr. Almeida continue on CPAP therapy with mask of choice,heated humidification and ramp. pressure should be set at 12 cm/H2o,alternatively auto CPAP 8-14 cm/H2O can be used. (sleep study note cameron Nonproliferative diabetic retinopathy (Chronic) Noncompliance with medication regimen (Chronic 07/06/13) Hyperlipidemia (Chronic 07/06/13) Erectile dysfunction (Chronic 07/06/13) Essential hypertension (Chronic 07/06/13) Depression (Chronic 11/25/11) Sensorineural hearing loss, bilateral (Chronic 11/24/17) Conductive hearing loss in left ear (Acute) Medical History Osteomyelitis Diabetic foot ulcer Tubular adenoma of colon (10/18/14) NSTEMI (non-ST elevated myocardial infarction) (07/11/17) 06/2017: S/p MADONNA to mLAD at [facility]; DAPT for a minimum of 1 year Surgical History Lesion of oral mucosa 01/29/[address] Schuster. 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 No dysplasia. PAS stain negative for fungal organisms Colonoscopy - IV Sedation (10/14/14) tubular adenoma Dr. Blancas Cholecystectomy S/P coronary artery stent placement s/p MADONNA to LAD mid 2; Dr. 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 local delivery driver: No Do you feel safe at home: Yes Do you feel safe in your relationship?: Yes Time Spent with Patient Time Spent with Patient: <45 minutes Time was spent: preparing to see the patient(eg.review tests), ordering medications,tests, procedures, referring, communicating with other health family day carer, indepentently interpreting results, counseling the patient and care coordination
--- NOTE | 2023-09-01 15:11 | CHAPLAIN ---
Edward was up in a chair visiting with a friend William when I stopped in. Edward remembered me from a previous visit. 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 He said he's doing okay here. His friend was trying to bring Edward's to visit, but she fell and they were caught in the rain. I'm not sure what happened to Edward's after that. She's not here. William's t-shirt was soaked from the rain. I will continue to visit.
--- NOTE | 2023-09-01 17:41 | PDOC.CMDIS ---
Date of service: 09/01/23 Time of Service: 17:41 LACE Index Scoring Tool Questions: Length of Stay (in days): 1 Was the patient admitted via the E.D.?: Yes Comorbidities: Diabetes w/o Complication and Congestive Heart Failure E.D. Visits: 0 Answers: Total Score: 7 Risk of Readmission: Low Risk Care Management Discharge Plan Reason for Hospitalization: Chest Pain Discharge Plan: Ganesh returned home today with no new services. CM contacted his PCP office to arrange an outpatient stress test to be ordered as soon as possible, likely early next week. He was transported via private vehicle by family. He will follow up with his PCP and discharge plan of care. Patient/Family Education Needs: Review discharge instructions and limitations, discussion of self care needs including ask me three.
== END 2023-09-01 15:29 | disposition home or self-care (01) ==
LOC: ER 23:25 → MS 09-01 00:36
PROVIDERS: Admitting Provider General Practice; Emergency Provider Emergency Medicine; PCP Nurse Practitioner Family; Visit Provider General Practice
DX: R07.89 Other chest pain (principal); E78.5 Hyperlipidemia, unspecified; T44.7X6A Underdosing of beta-adrenoreceptor antagonists, initial encounter; Z91.138 Patient's unintentional underdosing of medication regimen for other reason; Z79.84 Long term (current) use of oral hypoglycemic drugs; Z79.4 Long term (current) use of insulin; I25.10 Atherosclerotic heart disease of native coronary artery without angina pectoris; D53.8 Other specified nutritional anemias; E03.9 Hypothyroidism, unspecified; I50.22 Chronic systolic (congestive) heart failure; I25.2 Old myocardial infarction; E66.9 Obesity, unspecified; E83.42 Hypomagnesemia; K21.9 Gastro-esophageal reflux disease without esophagitis; E11.319 Type 2 diabetes mellitus with unspecified diabetic retinopathy without macular edema; G47.33 Obstructive sleep apnea (adult) (pediatric); Z91.148 Patient's other noncompliance with medication regimen for other reason; F32.A Depression, unspecified; H90.3 Sensorineural hearing loss, bilateral; Z95.5 Presence of coronary angioplasty implant and graft; I49.3 Ventricular premature depolarization
CPT/HCPCS: 36415; 36416; 80053; 82962; 85027; 87635; 93005; 96365; 96366; 99239; 99291; 71045; 83735; 84443; 84484; 85025; 85610; 85730; 93010; 99222; G0378

== ENCOUNTER → 2023-09-05 01:48 | Outpatient (CLI) | payer OTHER, SELFPAY ==
--- NOTE | 2023-09-05 09:13 | DI.NM_ITS ---
APPROVED REPORT Exam: Pharmacologic Patient Location: Out-Patient Room/Bed: Stress Nurse: Nicolas Lyons RN Ordering Provider:CALLIE GAY, Contact Number: BMI: 34.58 Baseline Rhythm: Sinus Rhythm Comment: Occasionbal unifocal PVC's. Indications: ASCVD, artherosclerotic heart disease, Chest pain. Medical History Medical History: NSTEMI, HTN, DMII, osteomyolitis, Cardiac Medications: Lisinopril, isosorbide mononitrate, metoprolol, spironolactone. , Allergies: isinopril Cardiac Risk Factors: HTN, , Diabetes (insulin), Obesity, CAD. Previous Cardiac Procedures: Myocardial infarction, Stent. Pretest Chest Pain Characteristics: No chest pain Exercise History: Physically active Lung Sounds: Clear to auscultation Heart Sounds: Regular Stress Test Details Test: Pharmacologic stress testing performed using 0.4 mg of regadenoson per 5 mL given IV over 10 s econds. Reason for pharmacologic stress test: physical limitation. Rest Isotope: Tc-99m Sestamibi. Dose: 10.8 Date: 09/05/2023 Injection Time: 0920 Stress Isotope: Tc-99m Sestamibi. Dose: 31.0 Date: 09/05/2023 Injection Time: 1335 HR Resting HR Supine: 74 bpm Max Heart Rate (APMHR): 161.023861 bpm Resting HR Standin bpm Target HR (85% APMHR): 136.277360 bpm Max HR Achieved: 103 bpm % of APMHR: 63.98 Recovery HR: 81 bpm HR response to stress: Blunted HR response to stress BP Resting BP Supine: 98/70 mmHg Resting BP Standin/60 mmHg Max BP: 94/56 mmHg Recovery BP: 79/58 mmHg BP response to stress: Blunted blood pressure response to stress. ECG Resting ECG: Sinus Rhythm Ectopy: Unifocal PVC's Stress ECG: Sinus Rhythm ST Change: No significant ST segment changes noted Arrhythmia: Unifocal PVC's. Recovery ECG: Sinus Rhythm Recovery ST Change: No significant ST segment changes noted Recovery Arrhythmia: Unifocal PVC's. Clinical Rate Pressure Product: [id number] Stress ECG Conclusion 1. Resting electrocardiogram showed an old anterior infarct 2. Patient underwent testing using pharmacologic stress with regadenoson 3. Peak heart rate achieved was 68% of predicted for age 4. Electrocardiographic portion of the test was nondiagnostic 5. See MPI report Stress Test Summary STAGE Time (mins) Speed (mph) Grade (%) HR BP SpO2 SYMPTOMS METS Supine 74 98/70 92 Standing 82 78/60 1 3 1.7 10 92 79/58 94 Fatigue. 4.5 1 min post Lexiscan injection 80 94/56 95 Fatigue. 3 min post Lexiscan injection 81 84/52 97 6 min post Lexiscan injection 81 79/58 95 Attempted Fercho protocol. Severe fatigue shortly after initiation. Walking Catarina initiated. Severe fatigue again with inability to keep pace at 1 MPH. States he's fine and it was his back. Complexio n ashen with dusky circomural and nose color. O2 sats remained normal. Assisted to stretcher. BP 9 9/56 with HR 96. No change in EKG. Symptoms resolved quickly to baseline. Laying Lexiscan done wit hout incident. Baseline BP low prior to attempted Fercho protocol. Dr. Ashley made aware and instruct ed to continue with Fercho if tolerated with approval to transition to Lexiscan if necessary. MPI Conclusion Myocardial perfusion is notable for apical thinning versus tiny area of infarction. There is no isch emia There are no significant wall motion abnormalities Radiologist Interpretation Radiologist agrees with Hogshead Inspector's Interpretation. Radiologist Interpretation by: Jose Galvin MD Interpretation Date/Time: 09/12/2023 15:12:52
[2023-09-05] MEDS: Regadenoson 0.4 MG/5 ML SYR IVP (14:20)
== END ==
PROVIDERS: PCP Nurse Practitioner Family; Visit Provider Family Medicine
DX: R07.9 Chest pain, unspecified (principal); I25.10 Atherosclerotic heart disease of native coronary artery without angina pectoris
CPT/HCPCS: 78452; 93016; 93018; 93017; J2785

== ENCOUNTER 2023-10-17 06:32 | Day surgery (SDC) | payer OTHER, SELFPAY ==
[2023-10-17] VITALS (8 sets, daily range): BP systolic 111–134; BP diastolic 68–87; PULSE 81–97; RESP 12–25; TEMP 36.3–36.6; O2SAT 92–100; BMI 33.9
--- NOTE | 2023-10-17 06:20 | W.ANESPRE ---
General Info Date of Service Date Performed: 10/17/23 Height: 5 ft 11 in Weight: 110.223 kg Body Mass Index (BMI): 33.9 Surgical Procedure: Operation Date: 10/17/23 07:40 Proposed Procedure Side Surgeon p Cystoscopy/Laser/Retrograde/Ureteroscopy/Stone manipulation/ ? Stent Left Dc Balderas MD Meds Allergies and Home Medications Allergies Allergy/AdvReac Type Severity Reaction Status Date / Time bee venom protein (honey bee) Allergy Severe Swelling/Ed Verified 10/11/23 14:00 capri Penicillins Allergy Unknown Rash Verified 10/11/23 14:00 shellfish derived Allergy Unknown Rash; Verified 10/11/23 14:00 swelling Home Medication Medication Instructions Recorded blood sugar diagnostic (Blood #400 ea 06/22/19 Glucose Test strips) triamcinolone acetonide 0.5 % 1 applic topical .BID-QID #15 grams 10/19/19 topical cream lancets #400 ea 04/24/20 alcohol swabs (Alcohol Pads) 1 pad topical QID Prior to 08/08/20 administering insulin for diabetes #400 ea nitroglycerin 0.4 mg sublingual 0.4 mg sublingual Q5M PRN chest 06/08/21 tablet pain #30 tab-caps flash glucose scanning reader #1 ea 11/11/21 (FreeStyle Flako 2 [place]) aspirin 81 mg chewable tablet 81 mg PO DAILY #90 tab-caps 03/31/22 sertraline 100 mg tablet (Zoloft) 200 mg (2 x 100 mg) PO DAILY #180 03/31/22 tab-caps clopidogrel 75 mg tablet See Rx Instructions .Route 07/06/22 .COMPLEX #90 tabs bupropion HCl 150 mg 24 hr tablet, 150 mg PO QAM 08/23/22 extended release magnesium oxide 400 mg (241.3 mg 400 mg PO DAILY #90 tab-caps 11/26/22 magnesium) tablet rosuvastatin 40 mg tablet (Crestor) 40 mg PO HS #90 tab-caps 01/05/23 insulin aspart U-100 100 unit/mL See Rx Instructions subcut AC #45 01/19/23 (3 mL) subcutaneous pen (Novolog mL FlexPen U-100 Insulin aspart) metoprolol succinate 50 mg 50 mg PO DAILY #90 tab-caps 02/10/23 tablet,extended release 24 hr pen needle, diabetic 31 gauge x #400 ea 02/25/23/16 (BD Ultra-Fine Short Pen Needle) cyanocobalamin (vitamin B-12) 1,000 mcg PO DAILY #90 tab-caps 06/30/23 1,000 mcg tablet semaglutide 0.25 mg or 0.5 mg (2 0.25 - 0.5 mg (0.368 - 0.736 mL) 06/30/23 mg/3 mL) subcutaneous pen injector subcut QWEEK #10 mL (Ozempic) flash glucose sensor (FreeStyle #2 ea 07/28/23 Flako 2 Sensor kit) empagliflozin 25 mg tablet See Rx Instructions .Route 09/26/23 (Jardiance) .COMPLEX #90 tabs lisinopril 2.5 mg tablet 2.5 mg PO DAILY #90 tab-caps 09/26/23 metformin 1,000 mg tablet 1,000 mg PO BID diabetes #180 09/26/23 tab-caps pantoprazole 40 mg tablet,delayed See Rx Instructions .Route 09/26/23 release .COMPLEX #90 tabs spironolactone 25 mg tablet 12.5 mg (1/2 x 25 mg) PO DAILY #45 09/26/23 tab-caps insulin degludec 100 unit/mL (3 55 unit subcut QHS Dx: E11.9 to 10/03/23 mL) subcutaneous pen (Tresiba maintain HbA1c less than 7% FlexTouch U-100 insulin) isosorbide mononitrate 30 mg 30 mg PO DAILY #30 tabs 10/03/23 tablet,extended release 24 hr Current Visit Medications: Current Medications Generic Name Dose Route Start Last Admin Trade Name Soloq PRN Reason Stop Dose Admin Ringer's Solution 1,000 mls @ 80 mls/hr 10/17/23 06:00 IV 11/11/23 23:59 INFUSION KARAN Ciprofloxacin 400 mg in 200 mls @ 200 mls/hr 10/17/23 06:00 Cipro I.V. IVPB 10/17/23 16:00 PREOP KARAN IV Miscellaneous Supplies 1 each 10/17/23 06:00 Iv Access IV 11/11/23 23:59 DIRECTED KARAN Sodium Chloride 0 ml 10/17/23 06:00 Normal Saline Flush 10 Ml Syr IV 11/11/23 23:59 PRN PRN Sodium Chloride 0 ml 10/17/23 06:00 Normal Saline 10 Ml Vial IJ 11/11/23 23:59 DIRECTED PRN Sterile Water 0 ml 10/17/23 06:00 Water,Injection,Sterile 10 Ml Vial IJ 11/11/23 23:59 DIRECTED PRN PFSH Active Problems Active Problems: Problem Status Onset Code Foot ulcer, left L97.529 Chest pain R07.9 Vitamin B12 deficiency E53.8 Subclinical hypothyroidism ~02/2023 E03.8 Chronic HFrEF (heart failure with reduced ejection fraction) 07/20/18 I50.22 Type 2 diabetes mellitus with hyperglycemia, with long-term current use of insulin 11/25/15 E11.65, Z79.4 ASCVD (arteriosclerotic cardiovascular disease) 07/28/17 I25.10 Obesity E66.9 Hypomagnesemia E83.42 Gastroesophageal reflux disease K21.9 Microalbuminuria R80.9 Callus of foot L84 Type 2 diabetes mellitus with retinopathy, with long-term current use of insulin 10/27/17 E11.319, Z79.4 Restless leg syndrome 10/31/14 G25.81 Obstructive sleep apnea, adult 10/31/14 G47.33 Nonproliferative diabetic retinopathy E11.3299 Noncompliance with medication regimen 07/06/13 Z91.14 Hyperlipidemia 07/06/13 E78.5 Erectile dysfunction 07/06/13 N52.9 Essential hypertension 07/06/13 I10 Depression 11/25/11 F32.9 Sensorineural hearing loss, bilateral 11/24/17 H90.3 Conductive hearing loss in left ear H90.12 Medical History Medical History Osteomyelitis Diabetic foot ulcer Tubular adenoma of colon (10/18/14) NSTEMI (non-ST elevated myocardial infarction) (07/11/17) 06/2017[place] [facility] [place] a minimum of 1 year Surgical History Surgical History Lesion of oral mucosa 01/29/[address] Schuster. 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 No dysplasia. PAS stain negative for fungal organisms Colonoscopy - IV Sedation (10/14/14) tubular adenoma Dr. Blancas Cholecystectomy S/P coronary artery stent placement s/p MADONNA to LAD mid 2; Dr. Fercho Eddy, [facility], 07/14/2017 Tobacco Smoking/Tobacco Use Status: Never Passive smoking exposure: No Alcohol Alcohol Intake: never Substance Use Substance use: Never Substance use type: does not use Vital Signs and Lab Results Vital Signs Most Recent Vital Signs in EMR: Temp Pulse Resp BP Pulse Ox 36.5 C 97 H 16 134/82 95 10/17/23 06:21 10/17/23 06:21 10/17/23 06:21 10/17/23 06:21 10/17/23 06:21 Lab Results Blood Type / Crossmatch: No Data to Display Complete Blood Count: No Data to Display Complete Metabolic Panel: No Data to Display Liver Function Panel: No Data to Display Coagulation Panel: No Data to Display Cardiac Panel: No Data to Display Arterial Blood Gas: No Data to Display Venous Blood Gas: No Data to Display Pancreas Panel: No Data to Display Thyroid Panel: No Data to Display Infectious Disease: No Data to Display Blood Cultures: No Data to Display Toxicology Panel: No Data to Display Imaging and Studies Imaging and Studies Study information below may be from another EMR and interpreted by another provider. Please see original notes in EMR for more complete details. EKG Summary: 09/12: sinus, PVCs. Stress Test Summary: 09/12: old AMI on ECG. MPI with apical thinning vs tiny infarction. there is no ischemia. no sig wall motion abnormalities. Echocardiogram Summary: 08/10: LVEF 40-45%, the inferior and posterior guzman are hypocontractile. trivial mitral dn tricuspid regurg. Anesthesia Assessment and Plan Anesthesia History Personal History: No History of Anesthesia Complications Family History: No Family History of Anesthesia Complications Exercise Tolerance Exercise Tolerance: Metabolic Equivalents>4 Cardiac & Pulmonary Exam Cardiac Exam: Normal S1/S2 Heart Sounds Pulmonary Exam: Clear Bilateral Breath Sounds Implantable Cardiac Device Does patient have a Pacemaker or an ICD?: No Airway Exam Known Difficult Airway: No Mallampati Class: 4 Mouth Opening: Normal (> 3cm) Thyromental Distance: Less than 3 cm Neck Range of Motion: Full ROM Neck Circumference: Thick Teeth Condition: Generalized Poor Dentition ASA Classification ASA Score: ASA 3 Emergency Case?: No NPO Status NPO Status: NPO Clears >2 hours, Solids >8 hours Anesthesia Plan Resuscitation Status: Full Code Anesthesia Technique: General Anesthesia Airway Planned: Endotracheal Tube Monitors Used: Standard Monitors Preoperative Comments:: 57 yo male for cysto/stone. Sig PMHx: HTN, HFrEF, ASCVD (2017 MADONNA to mLAD, clopidogrel, isosorbide, nitro. was recently admitted for CP, negative trops, has been feeling well.), GERD, VIVIANE, DM2 (with neuropathy and retinopathy. empagliflozin, metformin, semaglutide (last dose 1 month ago)), depression, never smoker/EtOH. Previous Anes: - Debridement of foot x 2, prop, natural airway no issues. - colo, prop, natural airway. Plan: NEO
--- NOTE | 2023-10-17 07:05 | W.PM.HP.N ---
Date of service: 10/17/23 Time of Service: 07:06 Assessment and Plan Assessment and plan (1) Intermittent gross hematuria: (2) Kidney stones: Status: Chronic Assessment and plan: We will do cystoscopy with bilateral retrograde pyelogram to complete the hematuria work-up. We will plan to do ureteroscopy and holmium laser lithotripsy of his known left renal pelvic stone. History of Present Illness History of Present Illness Chief Complaint: Left kidney stone Narrative: This is a 57-year-old gentleman who has a long history of kidney stones. He is not certain about the stone composition from his previous episodes. He comes in now with a history of intermittent gross hematuria. He had a noncontrast CT scan that demonstrated a 10 mm stone in the left renal pelvis. He is not currently having any flank pain, fevers or chills. He comes in for cystoscopy and bilateral retrograde pyelogram to complete the hematuria work-up. We will plan on doing ureteroscopy and holmium laser lithotripsy of his large left-sided stone. Review of Systems Narrative: No fevers or chills Retinopathy. Decreased hearing acuity. No vision change or dysphasia Hx diabetes. Hypothyroidism. Sleep apnea. SOB due to heart failure. No hemoptysis No chest pain or palpitations GERD. No hepatitis, ulcers, jaundice No seizures or strokes No bleeding disorders or anemia No gout PFSH All Active Problems (Updated 10/17/23 @ 07:15 by Dc Balderas MD) Kidney stones (Chronic) Foot ulcer, left (Acute) Chest pain (Acute) Vitamin B12 deficiency (Acute) Subclinical hypothyroidism (Chronic ~02/2023) Monitor Chronic HFrEF (heart failure with reduced ejection fraction) (Chronic 07/20/18) 2018: LVEF 30-35% at presentation; most recent echo 07/24/2020: LVEF 40-45% Type 2 diabetes mellitus with hyperglycemia, with long-term current use of insulin (Chronic 11/25/15) ASCVD (arteriosclerotic cardiovascular disease) (Chronic 07/28/17) NSTEMI with HFrEF 07/11/2017 [place] [facility] [place] (Chronic) Hypomagnesemia (Chronic) Gastroesophageal reflux disease (Chronic) Microalbuminuria (Chronic) Callus of foot (Chronic) Type 2 diabetes mellitus with retinopathy, with long-term current use of insulin (Chronic 10/27/17) Restless leg syndrome (Chronic 10/31/14) Sleep Medicine Obstructive sleep apnea, adult (Chronic 10/31/14) Pt. states he has not been using device 09/01/20 Severe, C-pap, Dr. Almeida continue on CPAP therapy with mask of choice,heated humidification and ramp. pressure should be set at 12 cm/H2o,alternatively auto CPAP 8-14 cm/H2O can be used. (sleep study note cameron Nonproliferative diabetic retinopathy (Chronic) Noncompliance with medication regimen (Chronic 07/06/13) Hyperlipidemia (Chronic 07/06/13) Erectile dysfunction (Chronic 07/06/13) Essential hypertension (Chronic 07/06/13) Depression (Chronic 11/25/11) Sensorineural hearing loss, bilateral (Chronic 11/24/17) Conductive hearing loss in left ear (Acute) Medical History (Updated 10/17/23 @ 07:15 by Dc Balderas MD) Intermittent gross hematuria Osteomyelitis Diabetic foot ulcer Tubular adenoma of colon (10/18/14) NSTEMI (non-ST elevated myocardial infarction) (07/11/17) 06/2017: [place] [facility] [place] a [place] of 1 year Surgical History Lesion of oral mucosa 01/29/[address] Schuster. 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 No dysplasia. PAS stain negative for fungal organisms Colonoscopy - IV Sedation (10/14/14) tubular adenoma Dr. Blancas Cholecystectomy S/P coronary artery stent placement s/p MADONNA to LAD mid 2; Dr. Fercho Eddy, [facility], 07/14/2017 Family History Mother Essential hypertension Father Lung cancer Social History Smoking/Tobacco Use Status: Never Smoking risk assessment performed?: Yes Alcohol Intake: never Drug use: Never Substance use type: does not use Adopted: No Caregiver/Support person: Yes Foster care: No Household members: spouse Housing: apartment Number of Children: 1 Communication Needs: Hard of Hearing Education Level: high school Do you need help understanding health information?: Never 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 Pets and animals: No Current gender identity: male What is your relationship status?: How often do you talk on the phone with friends or family?: three or more times per week How often do you get together with friends or relatives?: twice per week Do you belong to any clubs or organized social groups?: no Panel score (0-1 are the most socially isolated patients): 2 What type of physical activity do you participate in: walking and other Details: skiing, snowboarding. 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 Do you feel safe at home: Yes Do you feel safe in your relationship?: Yes Meds Allergies and Home Medications Allergies Allergy/AdvReac Type Severity Reaction Status Date / Time bee venom protein (honey bee) Allergy Severe Swelling/Ed Verified 10/11/23 14:00 capri Penicillins Allergy Unknown Rash Verified 10/11/23 14:00 shellfish derived Allergy Unknown Rash; Verified 10/11/23 14:00 swelling Home Medications Medication Instructions Recorded Confirmed Type blood sugar diagnostic (Blood #400 ea 06/22/19 09/23/23 Rx Glucose Test strips) triamcinolone acetonide 0.5 % 1 applic topical .BID-QID #15 grams 10/19/19 10/17/23 Rx topical cream lancets #400 ea 04/24/20 09/23/23 Rx alcohol swabs (Alcohol Pads) 1 pad topical QID Prior to 08/08/20 10/11/23 Rx administering insulin for diabetes #400 ea nitroglycerin 0.4 mg sublingual 0.4 mg sublingual Q5M PRN chest 06/08/21 10/17/23 Rx tablet pain #30 tab-caps flash glucose scanning reader #1 ea 11/11/21 09/23/23 Rx (FreeStyle Flako 2 [place]) aspirin 81 mg chewable tablet 81 mg PO DAILY #90 tab-caps 03/31/22 10/17/23 Rx sertraline 100 mg tablet (Zoloft) 200 mg (2 x 100 mg) PO DAILY #180 03/31/22 10/17/23 Rx tab-caps clopidogrel 75 mg tablet See Rx Instructions .Route 07/06/22 10/17/23 Rx .COMPLEX #90 tabs bupropion HCl 150 mg 24 hr tablet, 150 mg PO QAM 08/23/22 10/17/23 History extended release magnesium oxide 400 mg (241.3 mg 400 mg PO DAILY #90 tab-caps 11/26/22 10/17/23 Rx magnesium) tablet rosuvastatin 40 mg tablet (Crestor) 40 mg PO HS #90 tab-caps 01/05/23 10/17/23 Rx insulin aspart U-100 100 unit/mL See Rx Instructions subcut AC #45 01/19/23 10/17/23 Rx (3 mL) subcutaneous pen (Novolog mL FlexPen U-100 Insulin aspart) metoprolol succinate 50 mg 50 mg PO DAILY #90 tab-caps 02/10/23 10/17/23 Rx tablet,extended release 24 hr pen needle, diabetic 31 gauge x #400 ea 02/25/23 09/23/23 Rx 5/16 (BD Ultra-Fine Short Pen Needle) cyanocobalamin (vitamin B-12) 1,000 mcg PO DAILY #90 tab-caps 06/30/23 10/17/23 Rx 1,000 mcg tablet semaglutide 0.25 mg or 0.5 mg (2 0.25 - 0.5 mg (0.368 - 0.736 mL) 06/30/23 10/11/23 Rx mg/3 mL) subcutaneous pen injector subcut QWEEK #10 mL (Ozempic) flash glucose sensor (FreeStyle #2 ea 07/28/23 09/23/23 Rx Flako 2 Sensor kit) empagliflozin 25 mg tablet See Rx Instructions .Route 09/26/23 10/17/23 Rx (Jardiance) .COMPLEX #90 tabs lisinopril 2.5 mg tablet 2.5 mg PO DAILY #90 tab-caps 09/26/23 10/17/23 Rx metformin 1,000 mg tablet 1,000 mg PO BID diabetes #180 09/26/23 10/17/23 Rx tab-caps pantoprazole 40 mg tablet,delayed See Rx Instructions .Route 09/26/23 10/17/23 Rx release .COMPLEX #90 tabs spironolactone 25 mg tablet 12.5 mg (1/2 x 25 mg) PO DAILY #45 09/26/23 10/17/23 Rx tab-caps insulin degludec 100 unit/mL (3 55 unit subcut QHS Dx: E11.9 to 10/03/23 10/17/23 History mL) subcutaneous pen (Tresiba maintain HbA1c less than 7% FlexTouch U-100 insulin) isosorbide mononitrate 30 mg 30 mg PO DAILY #30 tabs 10/03/23 10/17/23 Rx tablet,extended release 24 hr Exam Const Nutritional Appearance: obese Neck Neck: supple Resp Effort & Inspection: normal respiratory effort Auscultation: clear to auscultation bilaterally Cardio Rate: regular rate Rhythm: regular rhythm GI Inspection: obesity Palpation: soft Neuro General: patient alert, patient awake and patient oriented x3 Results Last Vital Signs Temp 36.5 C 10/17/23 06:21 Pulse 97 H 10/17/23 06:21 Resp 16 10/17/23 06:21 BP 134/82 10/17/23 06:21 Pulse Ox 95 10/17/23 06:21 Time Spent Time spent with Patient: <40 minutes Time was spent: other
[2023-10-17] MEDS: CIPROFLOXACIN 400 MG/200 ML BAG 200 MG IVPB (07:17)
[2023-10-17] MEDS: Lactated Ringers 1,000 ML 80 ML IV (07:17)
[2023-10-17] MEDS: Lidocaine 2% Jelly 11 ML SYR (08:00)
[2023-10-17] MEDS: Omnipaque 300 MG/ML 50 ML BTL (08:20)
--- NOTE | 2023-10-17 08:38 | PDOC.DSDIS_ITS ---
Date of service: 10/17/23 Time of Service: 08:38 Discharge Plan Disposition Condition: Stable Discharge Details Reason For Visit: ureteroscopy Attending Provider: Dc Balderas Primary Care Provider: Camilla Sherman Home Meds and New Rx's Prescriptions: No Action metoprolol succinate 50 mg tablet extended release 24 hr 50 mg PO DAILY Qty: 90 3RF Ozempic 0.25 mg or 0.5 mg (2 mg/3 mL) pen injector 0.25 - 0.5 mg subcut QWEEK Qty: 10 3RF Rx Instructions: Take 0.25 mg once weekly for 4 weeks then increase to 0.5 mg weekly thereafter cyanocobalamin (vitamin B-12) 1,000 mcg tablet 1,000 mcg PO DAILY Qty: 90 3RF triamcinolone acetonide 0.5 % cream 1 applic TP .BID-QID Qty: 15 0RF Rx Instructions: Apply thin film to affected area(s) two-four times daily until resolution (DME) lancets Misc See Rx Instructions .ROUTE .MEDSUPPLY Qty: 400 3RF Rx Instructions: As directed to check blood glucose four times daily. On insulin. Dispense covered brand. bupropion HCl 150 mg tablet extended release 24 hr 150 mg PO QAM Rx Instructions: Dose increased 07/2022 (DME) pen needle, diabetic [BD Ultra-Fine Short Pen Needle] 31 gauge x 5/16 needle See Rx Instructions .ROUTE .COMPLEX Qty: 400 3RF Dose Instruction: USE ONCE DAILY TO ADMINISTER LANTUS Rx Instructions: Use as directed to administer insulin 4 times daily. insulin degludec [Tresiba FlexTouch U-100] 100 unit/mL (3 mL) insulin pen 55 unit subcut QHS (DME) Blood Glucose Test Strip See Rx Instructions .ROUTE .MEDSUPPLY Qty: 400 3RF Rx Instructions: As directed to check blood glucose QID. On insulin. Dispense covered brand. alcohol swabs [Alcohol Pads] Pads, Medicated 1 pad topical QID Qty: 400 3RF nitroglycerin 0.4 mg tablet, sublingual 0.4 mg SL Q5M MDD 3 doses PRN (Reason: chest pain) Qty: 30 0RF Rx Instructions: Take 0.4 mg every 5 minutes up to 3 doses; seek emergent medical care if no relief (DME) FreeStyle Flako 2 [place] Misc See Rx Instructions .ROUTE .MEDSUPPLY Qty: 1 0RF Rx Instructions: As directed aspirin 81 mg tablet,chewable 81 mg PO DAILY Qty: 90 3RF Hold Instructions: Home Medication placed on hold at Doctor's office sertraline [Zoloft] 100 mg tablet 200 mg PO DAILY Qty: 180 3RF clopidogrel 75 mg tablet See Rx Instructions .ROUTE .COMPLEX Qty: 90 0RF Hold Instructions: Home Medication placed on hold at Doctor's office Dose Instruction: TAKE 1 TABLET BY MOUTH DAILY Rx Instructions: TAKE 1 TABLET BY MOUTH DAILY magnesium oxide 400 mg (241.3 mg magnesium) tablet 400 mg PO DAILY Qty: 90 3RF rosuvastatin [Crestor] 40 mg tablet 40 mg PO HS Qty: 90 3RF Rx Instructions: FOR CHOLESTEROL & HEART PROTECTION insulin aspart U-100 [Novolog FlexPen U-100 Insulin] 100 unit/mL (3 mL) insulin pen See Rx Instructions subcut AC Qty: 45 3RF Rx Instructions: 12-16 units per sliding scale subcut before meals; (DME) FreeStyle Flako 2 Sensor Kit See Rx Instructions .ROUTE .COMPLEX Qty: 2 0RF Dose Instruction: TO MAINTAIN HBA1C LESS THAN 7%; DIRECTED Rx Instructions: TO MAINTAIN HBA1C LESS THAN 7%; DIRECTED Jardiance 25 mg tablet See Rx Instructions .ROUTE .COMPLEX Qty: 90 3RF Dose Instruction: TAKE 1 TABLET BY MOUTH DAILY Rx Instructions: TAKE 1 TABLET BY MOUTH DAILY lisinopril 2.5 mg tablet 2.5 mg PO DAILY Qty: 90 3RF spironolactone 25 mg tablet 12.5 mg PO DAILY Qty: 45 3RF metformin 1,000 mg tablet 1,000 mg PO BID Qty: 180 3RF Rx Instructions: pantoprazole 40 mg tablet,delayed release (DR/EC) See Rx Instructions .ROUTE .COMPLEX Qty: 90 3RF Dose Instruction: TAKE 1 TABLET BY MOUTH EVERY MORNING AT LEAST 30 MINUTES BEFORE FIRST MEAL Rx Instructions: TAKE 1 TABLET BY MOUTH EVERY MORNING AT LEAST 30 MINUTES BEFORE FIRST MEAL isosorbide mononitrate 30 mg tablet extended release 24 hr 30 mg PO DAILY Qty: 30 0RF Discharge Instructions Additional Instructions: no need to strain urine you have a stent in the ureter - it is not unusual to have blood in the urine and discomfort when you urinate as long as the stent is in place my office will call to arrange followup cystoscopy, stent removal, repeat ureteroscopy to make sure all stone fragments have been removed Activity:: Activity as Tolerated Shower/Bathe:: 24 hours Diet:: As Tolerated DS: Diagnosis Discharge Diagnosis (1) Intermittent gross hematuria: (2) Kidney stones: Status: Chronic
--- NOTE | 2023-10-17 08:44 | PDOC.DSDIS_ITS ---
Date of service: 10/17/23 Time of Service: 08:47 Discharge Plan Disposition Condition: Stable Discharge Details Reason For Visit: ureteroscopy Attending Provider: Dc Balderas Primary Care Provider: Camilla Sherman Home Meds and New Rx's Prescriptions: New tramadol 50 mg tablet 50 mg PO Q8H PRN (Reason: pain) Qty: 20 0RF Rx Instructions: may take if pain not controlled with tylenol and NSAIDs No Action metoprolol succinate 50 mg tablet extended release 24 hr 50 mg PO DAILY Qty: 90 3RF Ozempic 0.25 mg or 0.5 mg (2 mg/3 mL) pen injector 0.25 - 0.5 mg subcut QWEEK Qty: 10 3RF Rx Instructions: Take 0.25 mg once weekly for 4 weeks then increase to 0.5 mg weekly thereafter cyanocobalamin (vitamin B-12) 1,000 mcg tablet 1,000 mcg PO DAILY Qty: 90 3RF triamcinolone acetonide 0.5 % cream 1 applic TP .BID-QID Qty: 15 0RF Rx Instructions: Apply thin film to affected area(s) two-four times daily until resolution (DME) lancets Misc See Rx Instructions .ROUTE .MEDSUPPLY Qty: 400 3RF Rx Instructions: As directed to check blood glucose four times daily. On insulin. Dispense covered brand. bupropion HCl 150 mg tablet extended release 24 hr 150 mg PO QAM Rx Instructions: Dose increased 07/2022 (DME) pen needle, diabetic [BD Ultra-Fine Short Pen Needle] 31 gauge x 5/16 needle See Rx Instructions .ROUTE .COMPLEX Qty: 400 3RF Dose Instruction: USE ONCE DAILY TO ADMINISTER LANTUS Rx Instructions: Use as directed to administer insulin 4 times daily. insulin degludec [Tresiba FlexTouch U-100] 100 unit/mL (3 mL) insulin pen 55 unit subcut QHS (DME) Blood Glucose Test Strip See Rx Instructions .ROUTE .MEDSUPPLY Qty: 400 3RF Rx Instructions: As directed to check blood glucose QID. On insulin. Dispense covered brand. alcohol swabs [Alcohol Pads] Pads, Medicated 1 pad topical QID Qty: 400 3RF nitroglycerin 0.4 mg tablet, sublingual 0.4 mg SL Q5M MDD 3 doses PRN (Reason: chest pain) Qty: 30 0RF Rx Instructions: Take 0.4 mg every 5 minutes up to 3 doses; seek emergent medical care if no relief (DME) FreeStyle Flako 2 [place] Misc See Rx Instructions .ROUTE .MEDSUPPLY Qty: 1 0RF Rx Instructions: As directed aspirin 81 mg tablet,chewable 81 mg PO DAILY Qty: 90 3RF Hold Instructions: Home Medication placed on hold at Doctor's office sertraline [Zoloft] 100 mg tablet 200 mg PO DAILY Qty: 180 3RF clopidogrel 75 mg tablet See Rx Instructions .ROUTE .COMPLEX Qty: 90 0RF Hold Instructions: Home Medication placed on hold at Doctor's office Dose Instruction: TAKE 1 TABLET BY MOUTH DAILY Rx Instructions: TAKE 1 TABLET BY MOUTH DAILY magnesium oxide 400 mg (241.3 mg magnesium) tablet 400 mg PO DAILY Qty: 90 3RF rosuvastatin [Crestor] 40 mg tablet 40 mg PO HS Qty: 90 3RF Rx Instructions: FOR CHOLESTEROL & HEART PROTECTION insulin aspart U-100 [Novolog FlexPen U-100 Insulin] 100 unit/mL (3 mL) insulin pen See Rx Instructions subcut AC Qty: 45 3RF Rx Instructions: 12-16 units per sliding scale subcut before meals; (DME) FreeStyle Flako 2 Sensor Kit See Rx Instructions .ROUTE .COMPLEX Qty: 2 0RF Dose Instruction: TO MAINTAIN HBA1C LESS THAN 7%; DIRECTED Rx Instructions: TO MAINTAIN HBA1C LESS THAN 7%; DIRECTED Jardiance 25 mg tablet See Rx Instructions .ROUTE .COMPLEX Qty: 90 3RF Dose Instruction: TAKE 1 TABLET BY MOUTH DAILY Rx Instructions: TAKE 1 TABLET BY MOUTH DAILY lisinopril 2.5 mg tablet 2.5 mg PO DAILY Qty: 90 3RF spironolactone 25 mg tablet 12.5 mg PO DAILY Qty: 45 3RF metformin 1,000 mg tablet 1,000 mg PO BID Qty: 180 3RF Rx Instructions: pantoprazole 40 mg tablet,delayed release (DR/EC) See Rx Instructions .ROUTE .COMPLEX Qty: 90 3RF Dose Instruction: TAKE 1 TABLET BY MOUTH EVERY MORNING AT LEAST 30 MINUTES BEFORE FIRST MEAL Rx Instructions: TAKE 1 TABLET BY MOUTH EVERY MORNING AT LEAST 30 MINUTES BEFORE FIRST MEAL isosorbide mononitrate 30 mg tablet extended release 24 hr 30 mg PO DAILY Qty: 30 0RF Discharge Instructions Additional Instructions: no need to strain urine you have a stent in the ureter - it is not unusual to have blood in the urine and discomfort when you urinate as long as the stent is in place my office will call to arrange followup cystoscopy, stent removal, repeat u reteroscopy to make sure all stone fragments have been removed Activity:: Activity as Tolerated Shower/Bathe:: 24 hours Diet:: As Tolerated DS: Diagnosis Discharge Diagnosis (1) Intermittent gross hematuria: (2) Kidney stones: Status: Chronic
--- NOTE | 2023-10-17 08:47 | W.PM.OP ---
Date of service: 10/17/23 Time of Service: 08:47 Operative Note Operative Note DATE OF PROCEDURE: 10/17/23 PRE-OP DIAGNOSIS: Hematuria Left kidney stone PROCEDURE: cystoscopy, bilateral retrograde pyelogram, left ureteroscopy with holmium laser lithotripsy, extraction of stone fragments, insert left ureteral stent SURGEON: Dc Balderas ANESTHESIA TYPE: General LMA/ETT Refer to Anesthesia Record ESTIMATED BLOOD LOSS: 10 PATHOLOGY: other (stone for chemical analysis) COMPLICATIONS: None Patient was transported to: PACU Patient's condition: stable Implants: 6 lithuanian by 22 to 30 cm left ureteral stent Indications: This is a 57-year-old gentleman who has a long history of kidney stones. He is unsure of any previous stone analysis having been done He recently presented with gross hematuria. He was evaluated with a noncontrast CT scan which showed a 10 mm stone in the left renal pelvis. His hematuria has since resolved. He presents for cystoscopy, bilateral retrograde pyelograms and left ureteroscopy and holmium laser lithotripsy of his known left kidney stone Findings: stone in left renal pelvis bumped into midpole calyx where it was treated Procedure Description: The patient was given preop of antibiotics. He was brought to the operating room on 10/17/2023. After successful induction of general anesthesia, he was placed in the dorsal lithotomy position. His genitalia was prepped and draped. 2% Xylocaine jelly was instilled into the urethra to act as a local anesthetic. A 22 Y[place] rigid cystoscope was passed through the urethra into the bladder. The urethra and bladder were inspected with the 30 degree lens. The pendulous, bulbar and membranous urethra appeared normal with no strictures. The prostatic urethra showed some lateral lobe enlargement but no papillary lesions along the prostatic urethral mucosa. The bladder neck was entered and the bladder mucosa was inspected. Both ureteral orifices appeared normal with no blood coming from either side. The remainder the bladder showed no papillary lesions. The right ureteral orifice was cannulated with a 5 Y[place]ut access catheter. Retrograde pyelogram was obtained by injecting Omnipaque through the access catheter under fluoroscopic guidance. The right ureter and collecting system appeared normal. The upper tracts drained promptly on a 5-minute drainage film. The left retrograde pyelogram was performed in a similar manner. This time, there was a filling defect in the renal pelvis consistent with the known kidney stone. I passed a guidewire through the lumen of the access catheter and remove the catheter and cystoscope. I then passed a dual-lumen catheter over the wire and positioned a second wire. We chose one of the wires as a working wire and the other is a safety wire. The dual-lumen catheter was removed and the ureteral access sheath was advanced over the working wire. The safety wire was left in place. Flexible ureteroscopy was then performed by passing the scope through the lumen of the access sheath. I was able to advance the scope up to the renal pelvis and actually pushed the stone into a midpole calyx. I then treated the stone in situ with a 272 ?m holmium laser fiber. We used a power setting of 0.8 and a rate of 8. The stone fragmented quite nicely. I was able to grasp 2 large stone fragments and a 0 tip stone basket and remove the fragments in their entirety. The fragments were sent to pathology for chemical analysis. At the completion of the procedure, there was a large amount of small stone debris present so for some visibility issues occurred. We elected to place a ureteral stent and plan on a return visit to the operating room to make sure all stone fragments had been addressed. I removed the ureteral access sheath and passed a 6 Y[place]ut variable length stent over the safety wire. The stent was positioned with the proximal end curled in the renal pelvis and the distal end curled within the bladder. The positioning of the stent was confirmed both fluoroscopically and cystoscopically. The patient tolerated the procedure well with no complications.
--- NOTE | 2023-10-17 08:50 | DI.RAD_ITS ---
Exam(s) XR RETROGRADE IN OR EXAM: XR RETROGRADE IN OR CLINICAL HISTORY: left kidney stone. TECHNIQUE: 2D and realtime digital imaging was performed. CONTRAST MATERIAL: None COMPARISON: No exams were available for comparison FINDINGS: Fluoroscopy was provided during retrograde urologic procedure with placement of ureteral stent. See procedure report for details. IMPRESSION: Total fluoroscopy time 53 seconds RADIATION DOSE DELIVERED: sirena Lee=20.28mGy
--- NOTE | 2023-10-17 09:21 | W.ANESPOSTOP ---
Postoperative Evaluation Date, Time and Location Date Performed: 10/17/23 Time Performed: 09:21 Patient Location: PACU Vital Signs Most Recent Imported Vital Signs: Most Recent Vital Signs Temp Pulse Resp BP Pulse Ox 36.3 C L 81 12 117/73 94 10/17/23 09:15 10/17/23 09:15 10/17/23 09:15 10/17/23 09:15 10/17/23 09:15 Pain Score Most Recent Pain Score: Most Recent Pain Score Pain Level 0 10/17/23 09:15 Assessment Mental Status: Awake (Alert & Oriented to Patient Baseline) Airway and Respiratory Function: Patent airway with normal (patient baseline) respiratory exam Cardiovascular Function: Hemodynamically Stable Hydration Status: Adequately Hydrated Nausea & Vomiting: No Nausea or Vomiting Pain: Pt. Denies Any Pain Peripheral Nerve Block: Patient did not receive a nerve block
[2023-10-17] MEDS: Phenazopyridine 200 MG TAB PO (09:33)
[2023-10-21 10:38] LABS: Source: Left Kidney
== END 2023-10-17 10:27 | disposition home or self-care (01) ==
PROVIDERS: PCP Nurse Practitioner Family; Visit Provider Urology
PROC: (CPT 52356; principal; 2023-10-17 07:30)
DX: N20.0 Calculus of kidney; R31.0 Gross hematuria; G47.33 Obstructive sleep apnea (adult) (pediatric); E11.9 Type 2 diabetes mellitus without complications; I25.10 Atherosclerotic heart disease of native coronary artery without angina pectoris; E78.5 Hyperlipidemia, unspecified; E03.9 Hypothyroidism, unspecified; E66.9 Obesity, unspecified; Z95.5 Presence of coronary angioplasty implant and graft; Z68.33 Body mass index [BMI] 33.0-33.9, adult; I11.0 Hypertensive heart disease with heart failure; I25.2 Old myocardial infarction; Z79.4 Long term (current) use of insulin
CPT/HCPCS: 52356; 74420; 82365; J0131; J0744; J1100; J1885; J2371; J2405; J3010; Q9967

== ENCOUNTER 2023-10-17 21:48 | Emergency (ER) | payer OTHER, SELFPAY ==
[2023-10-17] VITALS (12 sets, daily range): BP systolic 129–152; BP diastolic 82–110; PULSE 73–88; RESP 18–25; TEMP 36.4; O2SAT 93–96
--- NOTE | 2023-10-17 21:43 | ED.GENADUL_ITS ---
Discharge Plan Disposition Patient Disposition: Home Condition: Improving Discharge Details Clinical Impression: Nausea & vomiting Primary Care Provider: Camilla Sherman ED Provider: Yessy Vizcarra Home Meds and New Rx's Prescriptions: New Ondansetron Odt, 3 Tabs/Btl [Zofran Odt, 3 Tabs/Btl] 4 mg PO DISPENSE Qty: 3 0RF Continued metoprolol succinate 50 mg tablet extended release 24 hr 50 mg PO DAILY Qty: 90 3RF Ozempic 0.25 mg or 0.5 mg (2 mg/3 mL) pen injector 0.25 - 0.5 mg subcut QWEEK Qty: 10 3RF Rx Instructions: Take 0.25 mg once weekly for 4 weeks then increase to 0.5 mg weekly thereafter cyanocobalamin (vitamin B-12) 1,000 mcg tablet 1,000 mcg PO DAILY Qty: 90 3RF triamcinolone acetonide 0.5 % cream 1 applic TP .BID-QID Qty: 15 0RF Rx Instructions: Apply thin film to affected area(s) two-four times daily until resolution (DME) lancets Misc See Rx Instructions .ROUTE .MEDSUPPLY Qty: 400 3RF Rx Instructions: As directed to check blood glucose four times daily. On insulin. Dispense covered brand. bupropion HCl 150 mg tablet extended release 24 hr 150 mg PO QAM Rx Instructions: Dose increased 07/2022 (DME) pen needle, diabetic [BD Ultra-Fine Short Pen Needle] 31 gauge x 5/16 needle See Rx Instructions .ROUTE .COMPLEX Qty: 400 3RF Dose Instruction: USE ONCE DAILY TO ADMINISTER LANTUS Rx Instructions: Use as directed to administer insulin 4 times daily. insulin degludec [Tresiba FlexTouch U-100] 100 unit/mL (3 mL) insulin pen 55 unit subcut QHS (DME) Blood Glucose Test Strip See Rx Instructions .ROUTE .MEDSUPPLY Qty: 400 3RF Rx Instructions: As directed to check blood glucose QID. On insulin. Dispense covered brand. alcohol swabs [Alcohol Pads] Pads, Medicated 1 pad topical QID Qty: 400 3RF nitroglycerin 0.4 mg tablet, sublingual 0.4 mg SL Q5M MDD 3 doses PRN (Reason: chest pain) Qty: 30 0RF Rx Instructions: Take 0.4 mg every 5 minutes up to 3 doses; seek emergent medical care if no relief (DME) FreeStyle Flako 2 Crosby Misc See Rx Instructions .ROUTE .MEDSUPPLY Qty: 1 0RF Rx Instructions: As directed aspirin 81 mg tablet,chewable 81 mg PO DAILY Qty: 90 3RF Hold Instructions: Home Medication placed on hold at Doctor's office sertraline [Zoloft] 100 mg tablet 200 mg PO DAILY Qty: 180 3RF clopidogrel 75 mg tablet See Rx Instructions .ROUTE .COMPLEX Qty: 90 0RF Hold Instructions: Home Medication placed on hold at Doctor's office Dose Instruction: TAKE 1 TABLET BY MOUTH DAILY Rx Instructions: TAKE 1 TABLET BY MOUTH DAILY magnesium oxide 400 mg (241.3 mg magnesium) tablet 400 mg PO DAILY Qty: 90 3RF rosuvastatin [Crestor] 40 mg tablet 40 mg PO HS Qty: 90 3RF Rx Instructions: FOR CHOLESTEROL & HEART PROTECTION insulin aspart U-100 [Novolog FlexPen U-100 Insulin] 100 unit/mL (3 mL) insulin pen See Rx Instructions subcut AC Qty: 45 3RF Rx Instructions: 12-16 units per sliding scale subcut before meals; (DME) FreeStyle Flako 2 Sensor Kit See Rx Instructions .ROUTE .COMPLEX Qty: 2 0RF Dose Instruction: TO MAINTAIN HBA1C LESS THAN 7%; DIRECTED Rx Instructions: TO MAINTAIN HBA1C LESS THAN 7%; DIRECTED Jardiance 25 mg tablet See Rx Instructions .ROUTE .COMPLEX Qty: 90 3RF Dose Instruction: TAKE 1 TABLET BY MOUTH DAILY Rx Instructions: TAKE 1 TABLET BY MOUTH DAILY lisinopril 2.5 mg tablet 2.5 mg PO DAILY Qty: 90 3RF spironolactone 25 mg tablet 12.5 mg PO DAILY Qty: 45 3RF metformin 1,000 mg tablet 1,000 mg PO BID Qty: 180 3RF Rx Instructions: pantoprazole 40 mg tablet,delayed release (DR/EC) See Rx Instructions .ROUTE .COMPLEX Qty: 90 3RF Dose Instruction: TAKE 1 TABLET BY MOUTH EVERY MORNING AT LEAST 30 MINUTES BEFORE FIRST MEAL Rx Instructions: TAKE 1 TABLET BY MOUTH EVERY MORNING AT LEAST 30 MINUTES BEFORE FIRST MEAL isosorbide mononitrate 30 mg tablet extended release 24 hr 30 mg PO DAILY Qty: 30 0RF tramadol 50 mg tablet 50 mg PO Q8H PRN (Reason: pain) Qty: 20 0RF Rx Instructions: may take if pain not controlled with tylenol and NSAIDs Discharge Instructions Instructions: Acute Nausea and Vomiting (ED) Additional Instructions: clear liquids to stay hydrated, advance as tolerated. Referrals: Camilla Sherman NP [Primary Care Provider] - Discharge Data Discharge Date/Time-TO BE ENTERED AT DEPARTURE: 10/18/23 00:22 Medical Decision Making Patient underwent urologic procedure in the OR today. Lithotripsy with stent placement. After arriving home proceeded to have intractable nausea and vomiting. He called Dr. Hook who referred him to the emergency department for IV hydration, symptoms improved after receiving ODT Zofran. Will establish IV access and give 1 L of lactated ringers. Hemodynamically he is stable he has no abdominal pain flank pain dysuria or urinary symptoms. Medical Records Medical records reviewed: Yes I reviewed the patient's medical records. Medical records narrative: procedure by Dr Hook today HPI General Mode of arrival: EMS . Date/Time Provider Initiated Documentation: 10/17/23 21:51 . Limitations to Documentation: no limitations . Information obtained by: patient . HPI Narrative: Presents for evaluation of nausea and vomiting, patient did have ureteroscopy with holmium laser lithotripsy of his known left renal pelvic stone today with DR Hook, He originally presented to see DR hook with intermittent hematuria, a non contrast CT showed a 10 mm stone in left renal pelvis. He states he got home at noon time and proceeded to vomit from noon till about 4 PM. He was unable to tolerate any oral intake so he did notify Dr. Hook who advised him to come to the emergency department for IV hydration. He called 911 and was transported by EMS. They did give him a 4 mg ODT tablet and route and he states his nausea is resolving. They were unable to gain IV access. Hemodynamically stable oral mucosa slightly dry Related Data Home Medications Medication Instructions Recorded Confirmed blood sugar diagnostic (Blood #400 ea 06/22/19 10/17/23 Glucose Test strips) triamcinolone acetonide 0.5 % 1 applic topical .BID-QID #15 grams 10/19/19 10/17/23 topical cream lancets #400 ea 04/24/20 10/17/23 alcohol swabs (Alcohol Pads) 1 pad topical QID Prior to 08/08/20 10/17/23 administering insulin for diabetes #400 ea nitroglycerin 0.4 mg sublingual 0.4 mg sublingual Q5M PRN chest 06/08/21 10/17/23 tablet pain #30 tab-caps flash glucose scanning reader #1 ea 11/11/21 10/17/23 (FreeStyle Flako 2 Crosby) aspirin 81 mg chewable tablet 81 mg PO DAILY #90 tab-caps 03/31/22 10/17/23 sertraline 100 mg tablet (Zoloft) 200 mg (2 x 100 mg) PO DAILY #180 03/31/22 10/17/23 tab-caps clopidogrel 75 mg tablet See Rx Instructions .Route 07/06/22 10/17/23 .COMPLEX #90 tabs bupropion HCl 150 mg 24 hr tablet, 150 mg PO QAM 08/23/22 10/17/23 extended release magnesium oxide 400 mg (241.3 mg 400 mg PO DAILY #90 tab-caps 11/26/22 10/17/23 magnesium) tablet rosuvastatin 40 mg tablet (Crestor) 40 mg PO HS #90 tab-caps 01/05/23 10/17/23 insulin aspart U-100 100 unit/mL See Rx Instructions subcut AC #45 01/19/23 10/17/23 (3 mL) subcutaneous pen (Novolog mL FlexPen U-100 Insulin aspart) metoprolol succinate 50 mg 50 mg PO DAILY #90 tab-caps 02/10/23 10/17/23 tablet,extended release 24 hr pen needle, diabetic 31 gauge x #400 ea 02/25/23 10/17/23 5/16 (BD Ultra-Fine Short Pen Needle) cyanocobalamin (vitamin B-12) 1,000 mcg PO DAILY #90 tab-caps 06/30/23 10/17/23 1,000 mcg tablet semaglutide 0.25 mg or 0.5 mg (2 0.25 - 0.5 mg (0.368 - 0.736 mL) 06/30/23 10/17/23 mg/3 mL) subcutaneous pen injector subcut QWEEK #10 mL (Ozempic) flash glucose sensor (FreeStyle #2 ea 07/28/23 10/17/23 Flako 2 Sensor kit) empagliflozin 25 mg tablet See Rx Instructions .Route 09/26/23 10/17/23 (Jardiance) .COMPLEX #90 tabs lisinopril 2.5 mg tablet 2.5 mg PO DAILY #90 tab-caps 09/26/23 10/17/23 metformin 1,000 mg tablet 1,000 mg PO BID diabetes #180 09/26/23 10/17/23 tab-caps pantoprazole 40 mg tablet,delayed See Rx Instructions .Route 09/26/23 10/17/23 release .COMPLEX #90 tabs spironolactone 25 mg tablet 12.5 mg (1/2 x 25 mg) PO DAILY #45 09/26/23 10/17/23 tab-caps insulin degludec 100 unit/mL (3 55 unit subcut QHS Dx: E11.9 to 10/03/23 10/17/23 mL) subcutaneous pen (Tresiba maintain HbA1c less than 7% FlexTouch U-100 insulin) isosorbide mononitrate 30 mg 30 mg PO DAILY #30 tabs 10/03/23 10/17/23 tablet,extended release 24 hr Ondansetron ODT, 3 tabs/btl 4 mg PO DISPENSE #3 tabs 10/17/23 [Zofran ODT, 3 tabs/btl] tramadol 50 mg tablet 50 mg PO Q8H PRN pain #20 tabs 10/17/23 10/17/23 Previous Rx's Medication Instructions Recorded blood sugar diagnostic (Blood #400 ea 06/22/19 Glucose Test strips) triamcinolone acetonide 0.5 % 1 applic topical .BID-QID #15 grams 10/19/19 topical cream lancets #400 ea 04/24/20 alcohol swabs (Alcohol Pads) 1 pad topical QID Prior to 08/08/20 administering insulin for diabetes #400 ea nitroglycerin 0.4 mg sublingual 0.4 mg sublingual Q5M PRN chest 06/08/21 tablet pain #30 tab-caps flash glucose scanning reader #1 ea 11/11/21 (FreeStyle Flako 2 Crosby) aspirin 81 mg chewable tablet 81 mg PO DAILY #90 tab-caps 03/31/22 sertraline 100 mg tablet (Zoloft) 200 mg (2 x 100 mg) PO DAILY #180 03/31/22 tab-caps clopidogrel 75 mg tablet See Rx Instructions .Route 08/16/22 .COMPLEX #90 tabs magnesium oxide 400 mg (241.3 mg 400 mg PO DAILY #90 tab-caps 11/26/22 magnesium) tablet rosuvastatin 40 mg tablet (Crestor) 40 mg PO HS #90 tab-caps 01/05/23 insulin aspart U-100 100 unit/mL See Rx Instructions subcut AC #45 01/19/23 (3 mL) subcutaneous pen (Novolog mL FlexPen U-100 Insulin aspart) metoprolol succinate 50 mg 50 mg PO DAILY #90 tab-caps 02/10/23 tablet,extended release 24 hr pen needle, diabetic 31 gauge x #400 ea 02/25/2304/05 (BD Ultra-Fine Short Pen Needle) cyanocobalamin (vitamin B-12) 1,000 mcg PO DAILY #90 tab-caps 06/30/23 1,000 mcg tablet semaglutide 0.25 mg or 0.5 mg (2 0.25 - 0.5 mg (0.368 - 0.736 mL) 06/30/23 mg/3 mL) subcutaneous pen injector subcut QWEEK #10 mL (Ozempic) flash glucose sensor (FreeStyle #2 ea 07/28/23 Flako 2 Sensor kit) empagliflozin 25 mg tablet See Rx Instructions .Route 09/26/23 (Jardiance) .COMPLEX #90 tabs lisinopril 2.5 mg tablet 2.5 mg PO DAILY #90 tab-caps 09/26/23 metformin 1,000 mg tablet 1,000 mg PO BID diabetes #180 09/26/23 tab-caps pantoprazole 40 mg tablet,delayed See Rx Instructions .Route 09/26/23 release .COMPLEX #90 tabs spironolactone 25 mg tablet 12.5 mg (1/2 x 25 mg) PO DAILY #45 09/26/23 tab-caps isosorbide mononitrate 30 mg 30 mg PO DAILY #30 tabs 10/03/23 tablet,extended release 24 hr Ondansetron ODT, 3 tabs/btl 4 mg PO DISPENSE #3 tabs 10/17/23 [Zofran ODT, 3 tabs/btl] tramadol 50 mg tablet 50 mg PO Q8H PRN pain #20 tabs 10/17/23 Allergies Allergy/AdvReac Type Severity Reaction Status Date / Time bee venom protein (honey bee) Allergy Severe Swelling/Ed Verified 10/17/23 22:55 capri Penicillins Allergy Unknown Rash Verified 10/17/23 22:55 shellfish derived Allergy Unknown Rash; Verified 10/17/23 22:55 swelling General VAN: 2 Review of Systems All systems reviewed & are unremarkable except as noted in HPI and below PFSH All Active Problems (Updated 10/18/23 @ 00:06 by ARPIT GREENFIELD) Nausea & vomiting (Acute) Foot ulcer, left (Acute) Chest pain (Acute) Vitamin B12 deficiency (Acute) Subclinical hypothyroidism (Chronic ~02/2023) Monitor Chronic HFrEF (heart failure with reduced ejection fraction) (Chronic 07/20/18) 2018: LVEF 30-35% at presentation; most recent echo 07/24/2020: LVEF 40-45% Type 2 diabetes mellitus with hyperglycemia, with long-term current use of insulin (Chronic 11/25/15) ASCVD (arteriosclerotic cardiovascular disease) (Chronic 07/28/17) NSTEMI with HFrEF 07/11/2017 [place] [facility] [place] (Chronic) Hypomagnesemia (Chronic) Gastroesophageal reflux disease (Chronic) Microalbuminuria (Chronic) Callus of foot (Chronic) Type 2 diabetes mellitus with retinopathy, with long-term current use of insulin (Chronic 10/27/17) Restless leg syndrome (Chronic 10/31/14) Sleep Medicine Obstructive sleep apnea, adult (Chronic 10/31/14) Pt. states he has not been using device 09/01/20 Severe, C-pap, Dr. Almeida continue on CPAP therapy with mask of choice,heated humidification and ramp. pressure should be set at 12 cm/H2o,alternatively auto CPAP 8-14 cm/H2O can be used. (sleep study note cameron Nonproliferative diabetic retinopathy (Chronic) Noncompliance with medication regimen (Chronic 07/06/13) Hyperlipidemia (Chronic 07/06/13) Erectile dysfunction (Chronic 07/06/13) Essential hypertension (Chronic 07/06/13) Depression (Chronic 11/25/11) Sensorineural hearing loss, bilateral (Chronic 11/24/17) Conductive hearing loss in left ear (Acute) Medical History (Updated 10/18/23 @ 00:06 by ARPIT GREENFIELD) Kidney stones Intermittent gross hematuria Osteomyelitis Diabetic foot ulcer Tubular adenoma of colon (10/18/14) NSTEMI (non-ST elevated myocardial infarction) (07/11/17) 06/2017: [place] [facility] [place] DAP[place] for a minimum of 1 year Surgical History Lesion of oral mucosa 01/29/[address] Schuster. 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 No dysplasia. PAS stain negative for fungal organisms Colonoscopy - IV Sedation (10/14/14) tubular adenoma Dr. Blancas Cholecystectomy S/P coronary artery stent placement s/p MADONNA to LAD mid 2; Dr. Fercho Eddy, [facility], 07/14/2017 Family History Mother Essential hypertension Father Lung cancer Social History Smoking/Tobacco Use Status: Never Smoking risk assessment performed?: Yes Alcohol Intake: never Drug use: Never Substance use type: does not use Adopted: No Caregiver/Support person: Yes Foster care: No Household members: spouse Housing: apartment Number of Children: 1 Communication Needs: Hard of Hearing Education Level: high school Do you need help understanding health information?: Never 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 Pets and animals: No Current gender identity: male What is your relationship status?: How often do you talk on the phone with friends or family?: three or more times per week How often do you get together with friends or relatives?: twice per week Do you belong to any clubs or organized social groups?: no Panel score (0-1 are the most socially isolated patients): 2 What type of physical activity do you participate in: walking and other Details: skiing, snowboarding. 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 after school driver: No Do you feel safe at home: Yes Do you feel safe in your relationship?: Yes Exam Const General: cooperative, comfortable and no acute distress Nutritional Appearance: overweight Orientation: alert, awake and oriented x3 HENMT Head: normal to inspection, normocephalic and atraumatic Mouth: moist mucous membranes abnormal (dry) Eyes General: appearance normal, both eyes and all related structures Resp Effort & Inspection: normal respiratory effort Cardio Rate: regular rate Rhythm: regular rhythm GI Inspection: normal to inspection Palpation: soft and nontender Skin General skin exam: no rashes or lesions noted Neuro General: patient alert, patient awake and patient oriented x3 Extrem General: normal to inspection and full ROM
[2023-10-17] MEDS: Lactated Ringers 1,000 ML 1000 ML IV (21:52)
[2023-10-17] MEDS: Prochlorperazine 10 MG/2 ML VIAL IVP (22:53)
[2023-10-18] MEDS: Ondansetron O.D.T. 4 MG TABEF, 3 TABS/BTL PO (00:18)
[2023-10-18 00:19] VITALS: BP 150/80; PULSE 80; RESP 16; TEMP 36.4; O2SAT 95
[2023-10-18 00:21] VITALS: BP 150/80; PULSE 80; RESP 16; O2SAT 95
== END 2023-10-18 00:22 | disposition home or self-care (01) ==
LOC: ER 22:15
PROVIDERS: Emergency Provider Nurse Practitioner Acute Care; PCP Nurse Practitioner Family
DX: R11.2 Nausea with vomiting, unspecified (principal); Z98.890 Other specified postprocedural states
CPT/HCPCS: 96361; 96374; 99284; J0780

== ENCOUNTER 2023-10-27 14:45 | Emergency (ER) | payer OTHER, SELFPAY ==
[2023-10-27 14:48] VITALS: BP 95/65; PULSE 60; RESP 20; TEMP 36.7; O2SAT 97
--- NOTE | 2023-10-27 15:00 | DI.RAD_ITS ---
Exam(s) XR CHEST 2V PA LATERAL EXAM: XR CHEST 2V PA LATERAL CLINICAL HISTORY: nausea vomiting. TECHNIQUE: 2D digital imaging was performed. COMPARISON: CR,XR XR PORTABLE CHEST AP from 08/31/2023 FINDINGS: 2 views: Heart size is normal. The mediastinum is not widened. Lungs are clear. No infiltrates nor pleural effusions. IMPRESSION: No acute pulmonary findings. DATA REPOSITORY: RADIATION DOSE DELIVERED:
--- NOTE | 2023-10-27 15:01 | DI.CT_ITS ---
Exam(s) CT ABDOMEN PELVIS W EXAM: CT ABDOMEN PELVIS W CLINICAL HISTORY: left lower abd pain nausea vom, recent lithotripsy. TECHNIQUE: Imaging Protocol: Axial computed tomography images with coronal and sagittal reformatted images were created and reviewed CONTRAST MATERIAL: Intravenous: Omnipaque-350 100cc Oral: None COMPARISON: CT CT ABDOMEN PELVIS WO from 07/18/2023 CT,NM NM MPI REST OR STRESS DAY 1 from 09/01/2023 CT,NM,TMT NM MPI REST STRESS DAY 2 from 09/05/2023 FINDINGS: VISUALIZED LUNG BASES: There is unchanged 2 millimeter pleural based benign-appearing nodule in the p osterior basal segment of the left lower lobe.. Lower down in the lateral basal segment of the left lower lobe there is an unchanged 4 millimeter nodule. There are no new nodules evident in the lung b ases and no pleural effusions. ABDOMEN: There is no ascites. LIVER: There are no focal hepatic lesions evident. No dilated intrahepatic ducts. GALLBLADDER/BILIARY: The gallbladder is again noted to be surgically absent. There is no dilatation of the biliary tree, both intra and extrahepatic. CBD is not dilated. PANCREAS: Duodenal diverticulum is noted at the pancreatic head level. There are no significant foca l pancreatic findings. Pancreatic duct is not dilated. SPLEEN: Spleen size upper normal. No splenic lesions. Splenic and portal veins are patent. ADRENALS: Left adrenal gland unremarkable. There is an oval nodule at the genu of the right adrenal gland measuring 2.2 by 1.4 cm, increased in size from 07/18/2023 KIDNEYS:Right kidney unremarkable. There is a double-pigtail left ureteral stent extending from the renal pelvis down into the urinary bladder. Enhancement pattern of the superior aspect of the kidney is heterogeneous suggesting pyelonephritis. Cannot exclude developing abscess as this is relatively focal. There is no hydronephrosis. No calculi nor hydronephrosis in this region. There is a tiny nonobstructive calculus in lower pole of the left kidney. The distal pigtail of the stent is in the urinary bladder. The bladder wall is diffusely thickened. There is some gas in the urinary bladder which is probably related to the recent instrumentation. ABDOMINAL AORTA: Abdominal aorta is not enlarged. LYMPH NODES:There is no retroperitoneal nor paraaortic adenopathy. ABDOMINAL WALL: No evidence of significant anterior abdominal wall nor inguinal hernia. GI: There is no evidence of bowel obstruction, free air, nor abscess. PELVIS: GI: No evidence of appendicitis.No evidence of sigmoid diverticulitis. LYMPH NODES: There is no intrapelvic nor inguinal adenopathy. REPRODUCTIVE: Prostate size normal. Seminal vesicles unremarkable. There is calcification noted in the vas deferens bilaterally. URINARY BLADDER: Uniformly thickened wall. Suspect cystitis. OSSEOUS: No fractures and no significant osseous lesions. IMPRESSION: 1. There is a stent in the left ureter. There is no hydronephrosis but the enhancement pattern of th e superior aspect of the left kidney is in homogeneous and concerning for pyelonephritis at this leve l. Cannot exclude developing renal abscess. This abnormally enhancing area in the superior half of the left kidney is measures approximately 5 x 5 cm. Also noted is a tiny 1-2 mm nonobstructive calcu danny in the lower pole calyx of the left kidney. The opposite-right kidney appears unremarkable. 2. Appearance of the urinary bladder wall is abnormal with ches diffusely thickened consistent with c ystitis. 3. There is calcification of the vas deferens bilaterally. This is usually seen with diabetes. 4. Prostate size is normal. No evidence of appendicitis nor diverticulitis. There is a right adrenal gland nodule measuring 22 x 14 mm, larger than previous. No nodules in the left adrenal gland. Follow-up MRI chemical shift imaging sequences can be considered. Called by myself to ER physician. RADIATION DOSE DELIVERED: Total DLP DATA REPOSITORY: All CT scans at this facility are submitted to the National Radiology Data Registry (NRDR) Dose Index Registry (DIR) with the [employer] (ACR). RADIATION OPTIMIZATION: All CT scans at this facility use at least one of these dose optimization te chniques: automated exposure control; mA and/or kV adjustment per patient size (includes targeted exa ms where dose is matched to clinical indication); or iterative reconstruction.
--- NOTE | 2023-10-27 15:07 | ED.GENADUL_ITS ---
Discharge Plan Disposition Patient Disposition: Home Condition: Improving Discharge Details Clinical Impression: Pyelonephritis Primary Care Provider: Camilla Sherman ED Provider: David Ballesteros Home Meds and New Rx's Prescriptions: New ciprofloxacin HCl 500 mg tablet 500 mg PO BID 10 Days Qty: 20 0RF No Action metoprolol succinate 50 mg tablet extended release 24 hr 50 mg PO DAILY Qty: 90 3RF Ozempic 0.25 mg or 0.5 mg (2 mg/3 mL) pen injector 0.25 - 0.5 mg subcut QWEEK Qty: 10 3RF Rx Instructions: Take 0.25 mg once weekly for 4 weeks then increase to 0.5 mg weekly thereafter cyanocobalamin (vitamin B-12) 1,000 mcg tablet 1,000 mcg PO DAILY Qty: 90 3RF triamcinolone acetonide 0.5 % cream 1 applic TP .BID-QID Qty: 15 0RF Rx Instructions: Apply thin film to affected area(s) two-four times daily until resolution (DME) lancets Misc See Rx Instructions .ROUTE .MEDSUPPLY Qty: 400 3RF Rx Instructions: As directed to check blood glucose four times daily. On insulin. Dispense covered brand. bupropion HCl 150 mg tablet extended release 24 hr 150 mg PO QAM Rx Instructions: Dose increased 07/2022 (DME) pen needle, diabetic [BD Ultra-Fine Short Pen Needle] 31 gauge x 5/16 needle See Rx Instructions .ROUTE .COMPLEX Qty: 400 3RF Dose Instruction: USE ONCE DAILY TO ADMINISTER LANTUS Rx Instructions: Use as directed to administer insulin 4 times daily. insulin degludec [Tresiba FlexTouch U-100] 100 unit/mL (3 mL) insulin pen 55 unit subcut QHS (DME) Blood Glucose Test Strip See Rx Instructions .ROUTE .MEDSUPPLY Qty: 400 3RF Rx Instructions: As directed to check blood glucose QID. On insulin. Dispense covered brand. alcohol swabs [Alcohol Pads] Pads, Medicated 1 pad topical QID Qty: 400 3RF nitroglycerin 0.4 mg tablet, sublingual 0.4 mg SL Q5M MDD 3 doses PRN (Reason: chest pain) Qty: 30 0RF Rx Instructions: Take 0.4 mg every 5 minutes up to 3 doses; seek emergent medical care if no relief (DME) FreeStyle Flako 2 [place] Misc See Rx Instructions .ROUTE .MEDSUPPLY Qty: 1 0RF Rx Instructions: As directed aspirin 81 mg tablet,chewable 81 mg PO DAILY Qty: 90 3RF Hold Instructions: Home Medication placed on hold at Doctor's office sertraline [Zoloft] 100 mg tablet 200 mg PO DAILY Qty: 180 3RF clopidogrel 75 mg tablet See Rx Instructions .ROUTE .COMPLEX Qty: 90 0RF Hold Instructions: Home Medication placed on hold at Doctor's office Dose Instruction: TAKE 1 TABLET BY MOUTH DAILY Rx Instructions: TAKE 1 TABLET BY MOUTH DAILY rosuvastatin [Crestor] 40 mg tablet 40 mg PO HS Qty: 90 3RF Rx Instructions: FOR CHOLESTEROL & HEART PROTECTION insulin aspart U-100 [Novolog FlexPen U-100 Insulin] 100 unit/mL (3 mL) insulin pen See Rx Instructions subcut AC Qty: 45 3RF Rx Instructions: 12-16 units per sliding scale subcut before meals; (DME) FreeStyle Flako 2 Sensor Kit See Rx Instructions .ROUTE .COMPLEX Qty: 2 0RF Dose Instruction: TO MAINTAIN HBA1C LESS THAN 7%; DIRECTED Rx Instructions: TO MAINTAIN HBA1C LESS THAN 7%; DIRECTED Jardiance 25 mg tablet See Rx Instructions .ROUTE .COMPLEX Qty: 90 3RF Dose Instruction: TAKE 1 TABLET BY MOUTH DAILY Rx Instructions: TAKE 1 TABLET BY MOUTH DAILY lisinopril 2.5 mg tablet 2.5 mg PO DAILY Qty: 90 3RF spironolactone 25 mg tablet 12.5 mg PO DAILY Qty: 45 3RF metformin 1,000 mg tablet 1,000 mg PO BID Qty: 180 3RF Rx Instructions: pantoprazole 40 mg tablet,delayed release (DR/EC) See Rx Instructions .ROUTE .COMPLEX Qty: 90 3RF Dose Instruction: TAKE 1 TABLET BY MOUTH EVERY MORNING AT LEAST 30 MINUTES BEFORE FIRST MEAL Rx Instructions: TAKE 1 TABLET BY MOUTH EVERY MORNING AT LEAST 30 MINUTES BEFORE FIRST MEAL magnesium oxide 400 mg (241.3 mg magnesium) tablet 400 mg PO DAILY Qty: 90 3RF isosorbide mononitrate 30 mg tablet extended release 24 hr See Rx Instructions .ROUTE .COMPLEX Qty: 28 0RF Dose Instruction: TAKE 1 TABLET BY MOUTH DAILY Rx Instructions: TAKE 1 TABLET BY MOUTH DAILY Ondansetron Odt, 3 Tabs/Btl [Zofran Odt, 3 Tabs/Btl] 4 mg PO DISPENSE Qty: 3 0RF tramadol 50 mg tablet 50 mg PO Q8H PRN (Reason: pain) Qty: 20 0RF Rx Instructions: may take if pain not controlled with tylenol and NSAIDs Discharge Instructions Instructions: Kidney Infection (ED) Additional Instructions: Please follow-up closely with urology team this week or early next week. If you have any worsening symptoms or have any issues seeking follow-up please return to the emergency department. Medical Decision Making 57-year-old male history of diabetes, kidney stones, recent lithotripsy, possible stent placement presents with left lower quadrant abdominal pain nausea and vomiting, generalized fatigue over the last several days. Afebrile nontoxic relatively soft BP on arrival 95/65, nontachycardic, nonmeningeal, no chest pain or shortness of breath. Abdomen soft nontender nondistended. Consider viral syndrome with mild dehydration versus UTI versus enterocolitis versus diverticulitis most also consider ureteral obstruction/hydronephrosis lower suspicion for early pyelonephritis. Will obtain screening labs imaging fluids antiemetics chest x-ray CT abdomen pelvis, flu COVID RSV screening. Patient currently resting comfortably no acute distress alert oriented interactive nontoxic. 17: 24 patient resting comfortably feeling much better after fluids and Tylenol. No vomiting here in department. Nonperitoneal. Evidence of enhancement to the superior pole of left kidney concerning for early pyelonephritis, leuk esterase positive negative nitrite UA. Will treat empirically with ciprofloxacin given patient's allergy to penicillins. Will attempt to contact urology team Dr. Balderas's office. Given nontoxic well-appearing patient clinically improving will likely encourage close follow-up as an outpatient this week or early next week for consideration of possible stent removal. 18: 13 patient resting notably no acute distress nontoxic hemodynamically stable. No vomiting here department. Dose of parenteral ciprofloxacin has been given. Will transition to oral Cipro. Will have patient follow-up closely this week or early next week with Dr. Balderas's team. Home care instructions and return precautions given HPI General Date/Time Provider Initiated Documentation: 10/27/23 14:54 . HPI Narrative: 57-year-old male history of diabetes, kidney stones presents with left lower quadrant abdominal pain nausea vomiting over the last several days. Recent lithotripsy with possible stent placement. Related Data Home Medications Medication Instructions Recorded Confirmed blood sugar diagnostic (Blood #400 ea 06/22/19 10/27/23 Glucose Test strips) triamcinolone acetonide 0.5 % 1 applic topical .BID-QID #15 grams 10/19/19 10/27/23 topical cream lancets #400 ea 04/24/20 10/27/23 alcohol swabs (Alcohol Pads) 1 pad topical QID Prior to 08/08/20 10/27/23 administering insulin for diabetes #400 ea nitroglycerin 0.4 mg sublingual 0.4 mg sublingual Q5M PRN chest 06/08/21 10/27/23 tablet pain #30 tab-caps flash glucose scanning reader #1 ea 11/11/21 10/27/23 (FreeStyle Flako 2 [place]) aspirin 81 mg chewable tablet 81 mg PO DAILY #90 tab-caps 03/31/22 10/27/23 sertraline 100 mg tablet (Zoloft) 200 mg (2 x 100 mg) PO DAILY #180 03/31/22 10/27/23 tab-caps clopidogrel 75 mg tablet See Rx Instructions .Route 07/06/22 10/27/23 .COMPLEX #90 tabs bupropion HCl 150 mg 24 hr tablet, 150 mg PO QAM 08/23/22 10/27/23 extended release rosuvastatin 40 mg tablet (Crestor) 40 mg PO HS #90 tab-caps 01/05/23 10/27/23 insulin aspart U-100 100 unit/mL See Rx Instructions subcut AC #45 01/19/23 10/27/23 (3 mL) subcutaneous pen (Novolog mL FlexPen U-100 Insulin aspart) metoprolol succinate 50 mg 50 mg PO DAILY #90 tab-caps 02/10/23 10/27/23 tablet,extended release 24 hr pen needle, diabetic 31 gauge x #400 ea 02/25/23 10/27/2316 (BD Ultra-Fine Short Pen Needle) cyanocobalamin (vitamin B-12) 1,000 mcg PO DAILY #90 tab-caps 06/30/23 10/27/23 1,000 mcg tablet semaglutide 0.25 mg or 0.5 mg (2 0.25 - 0.5 mg (0.368 - 0.736 mL) 06/30/23 1 12/28/22 mg/3 mL) subcutaneous pen injector subcut QWEEK #10 mL (Ozempic) flash glucose sensor (FreeStyle #2 ea 07/28/23 10/27/23 Flako 2 Sensor kit) empagliflozin 25 mg tablet See Rx Instructions .Route 09/26/23 10/27/23 (Jardiance) .COMPLEX #90 tabs lisinopril 2.5 mg tablet 2.5 mg PO DAILY #90 tab-caps 09/26/23 10/27/23 metformin 1,000 mg tablet 1,000 mg PO BID diabetes #180 09/26/23 10/27/23 tab-caps pantoprazole 40 mg tablet,delayed See Rx Instructions .Route 09/26/23 10/27/23 release .COMPLEX #90 tabs spironolactone 25 mg tablet 12.5 mg (1/2 x 25 mg) PO DAILY #45 09/26/23 10/27/23 tab-caps insulin degludec 100 unit/mL (3 55 unit subcut QHS Dx: E11.9 to 10/03/23 10/27/23 mL) subcutaneous pen (Tresiba maintain HbA1c less than 7% FlexTouch U-100 insulin) Ondansetron ODT, 3 tabs/btl 4 mg PO DISPENSE #3 tabs 10/17/23 10/27/23 [Zofran ODT, 3 tabs/btl] tramadol 50 mg tablet 50 mg PO Q8H PRN pain #20 tabs 10/17/23 10/27/23 magnesium oxide 400 mg (241.3 mg 400 mg PO DAILY #90 tab-caps 10/25/23 10/27/23 magnesium) tablet ciprofloxacin HCl 500 mg tablet 500 mg PO BID 10 days #20 tabs 10/27/23 isosorbide mononitrate 30 mg See Rx Instructions .Route 10/27/23 tablet,extended release 24 hr .COMPLEX #28 tabs Previous Rx's Medication Instructions Recorded blood sugar diagnostic (Blood #400 ea 06/22/19 Glucose Test strips) triamcinolone acetonide 0.5 % 1 applic topical .BID-QID #15 grams 10/19/19 topical cream lancets #400 ea 04/24/20 alcohol swabs (Alcohol Pads) 1 pad topical QID Prior to 08/08/20 administering insulin for diabetes #400 ea nitroglycerin 0.4 mg sublingual 0.4 mg sublingual Q5M PRN chest 06/08/21 tablet pain #30 tab-caps flash glucose scanning reader #1 ea 11/11/21 (FreeStyle Flako 2 [place]) aspirin 81 mg chewable tablet 81 mg PO DAILY #90 tab-caps 03/31/22 sertraline 100 mg tablet (Zoloft) 200 mg (2 x 100 mg) PO DAILY #180 03/31/22 tab-caps clopidogrel 75 mg tablet See Rx Instructions .Route 07/06/22 .COMPLEX #90 tabs rosuvastatin 40 mg tablet (Crestor) 40 mg PO HS #90 tab-caps 01/05/23 insulin aspart U-100 100 unit/mL See Rx Instructions subcut AC #45 01/19/23 (3 mL) subcutaneous pen (Novolog mL FlexPen U-100 Insulin aspart) metoprolol succinate 50 mg 50 mg PO DAILY #90 tab-caps 02/10/23 tablet,extended release 24 hr pen needle, diabetic 31 gauge x #400 ea 02/25/23 5/16 (BD Ultra-Fine Short Pen Needle) cyanocobalamin (vitamin B-12) 1,000 mcg PO DAILY #90 tab-caps 06/30/23 1,000 mcg tablet semaglutide 0.25 mg or 0.5 mg (2 0.25 - 0.5 mg (0.368 - 0.736 mL) 06/30/23 mg/3 mL) subcutaneous pen injector subcut QWEEK #10 mL (Ozempic) flash glucose sensor (FreeStyle #2 ea 07/28/23 Flako 2 Sensor kit) empagliflozin 25 mg tablet See Rx Instructions .Route 09/26/23 (Jardiance) .COMPLEX #90 tabs lisinopril 2.5 mg tablet 2.5 mg PO DAILY #90 tab-caps 09/26/23 metformin 1,000 mg tablet 1,000 mg PO BID diabetes #180 09/26/23 tab-caps pantoprazole 40 mg tablet,delayed See Rx Instructions .Route 09/26/23 release .COMPLEX #90 tabs spironolactone 25 mg tablet 12.5 mg (1/2 x 25 mg) PO DAILY #45 09/26/23 tab-caps Ondansetron ODT, 3 tabs/btl 4 mg PO DISPENSE #3 tabs 10/17/23 [Zofran ODT, 3 tabs/btl] tramadol 50 mg tablet 50 mg PO Q8H PRN pain #20 tabs 10/17/23 magnesium oxide 400 mg (241.3 mg 400 mg PO DAILY #90 tab-caps 10/25/23 magnesium) tablet ciprofloxacin HCl 500 mg tablet 500 mg PO BID 10 days #20 tabs 10/27/23 isosorbide mononitrate 30 mg See Rx Instructions .Route 10/27/23 tablet,extended release 24 hr .COMPLEX #28 tabs Allergies Allergy/AdvReac Type Severity Reaction Status Date / Time bee venom protein (honey bee) Allergy Severe Swelling/Ed Verified 10/27/23 14:51 capri Penicillins Allergy Unknown Rash Verified 10/27/23 14:51 shellfish derived Allergy Unknown Rash; Verified 10/27/23 14:51 swelling General Stated Complaint: Abd Prob VAN: 3 Review of Systems Narrative: Review of Systems Constitutional: Fatigue Eyes: negative ENT: negative Cardiovascular: negative Respiratory: negative Gastrointestinal: Abdominal pain nausea vomiting : negative Musculoskeletal: negative Skin: negative Neurologic: negative Psych: negative PFSH All Active Problems (Updated 10/27/23 @ 18:16 by David Ballesteros MD) Pyelonephritis (Acute) Nausea & vomiting (Acute) Foot ulcer, left (Acute) Chest pain (Acute) Vitamin B12 deficiency (Acute) Subclinical hypothyroidism (Chronic ~02/2023) Monitor Chronic HFrEF (heart failure with reduced ejection fraction) (Chronic 07/20/18) 2018: LVEF 30-35% at presentation; most recent echo 07/24/2020: LVEF 40-45% Type 2 diabetes mellitus with hyperglycemia, with long-term current use of insulin (Chronic 11/25/15) ASCVD (arteriosclerotic cardiovascular disease) (Chronic 07/28/17) NSTEMI with HFrEF 07/11/2017 s/p MADONNA to mLAD on 07/14/2017 at [facility] Obesity (Chronic) Hypomagnesemia (Chronic) Gastroesophageal reflux disease (Chronic) Microalbuminuria (Chronic) Callus of foot (Chronic) Type 2 diabetes mellitus with retinopathy, with long-term current use of insulin (Chronic 10/27/17) Restless leg syndrome (Chronic 10/31/14) Sleep Medicine Obstructive sleep apnea, adult (Chronic 10/31/14) Pt. states he has not been using device 09/01/20 Severe, C-pap, Dr. Almeida continue on CPAP therapy with mask of choice,heated humidification and ramp. pressure should be set at 12 cm/H2o,alternatively auto CPAP 8-14 cm/H2O can be used. (sleep study note cameron Nonproliferative diabetic retinopathy (Chronic) Noncompliance with medication regimen (Chronic 07/06/13) Hyperlipidemia (Chronic 07/06/13) Erectile dysfunction (Chronic 07/06/13) Essential hypertension (Chronic 07/06/13) Depression (Chronic 11/25/11) Sensorineural hearing loss, bilateral (Chronic 11/24/17) Conductive hearing loss in left ear (Acute) Medical History (Updated 10/27/23 @ 18:16 by David Ballesteros MD) Kidney stones Intermittent gross hematuria Osteomyelitis Diabetic foot ulcer Tubular adenoma of colon (10/18/14) NSTEMI (non-ST elevated myocardial infarction) (07/11/17) 06/2017: S/p MADONNA to mLAD at [facility]; DAPT for a minimum of 1 year Surgical History Lesion of oral mucosa 01/29/[address] Schuster. 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 No dysplasia. PAS stain negative for fungal organisms Colonoscopy - IV Sedation (10/14/14) tubular adenoma Dr. Blancas Cholecystectomy S/P coronary artery stent placement s/p MADONNA to LAD mid 2; Dr. Fercho Eddy, [facility], 07/14/2017 Family History Mother Essential hypertension Father Lung cancer Social History Smoking/Tobacco Use Status: Never Smoking risk assessment performed?: Yes Alcohol Intake: never Drug use: Never Substance use type: does not use Adopted: No Caregiver/Support person: Yes Foster care: No Household members: spouse Housing: apartment Number of Children: 1 Communication Needs: Hard of Hearing Education Level: high school Do you need help understanding health information?: Never 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 Pets and animals: No Current gender identity: male What is your relationship status?: How often do you talk on the phone with friends or family?: three or more times per week How often do you get together with friends or relatives?: twice per week Do you belong to any clubs or organized social groups?: no Panel score (0-1 are the most socially isolated patients): 2 What type of physical activity do you participate in: walking and other Details: skiing, snowboarding. 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: No Do you feel safe at home: Yes Do you feel safe in your relationship?: Yes Exam Narrative Exam Narrative: Physical Examination General: alert, awake, cooperative, resting comfortably, no acute distress HEENT: normocephalic, atraumatic; PERRL, EOM intact, conjunctiva normal; no nasal discharge; moist mucous membranes, oral and pharyngeal mucosa normal, tolerating secretions Neck: supple, trachea midline; full ROM; no meningeal Chest: normal to inspection Respiratory: normal respiratory effort, speaking in full sentences, clear to auscultation, no wheezing, rales or rhonchi Cardiac: regular rate, regular rhythm, S1S2 intact, no murmurs rubs or gallops GI: abdomen soft, non-tender, non-distended; no palpable mass or hepatosplenomegaly Skin: no lesions, rashes or trauma appreciated Neuro: AAOx3, normal speech, moving all extremities Psych: Appropriate mood and affect Course Vital Signs Vital signs: Vital Signs Temperature 36.7 C 10/27/23 14:48 Pulse 60 10/27/23 14:48 Respiratory Rate 20 10/27/23 14:48 Blood Pressure 95/65 L 10/27/23 14:48 Pulse Oximetry 97 10/27/23 14:48 Temperature 36.7 C 10/27/23 14:48 Temperature Source Skin 10/27/23 14:48 Pulse 60 10/27/23 14:48 Respiratory Rate 20 10/27/23 14:48 Blood Pressure 95/65 L 10/27/23 14:48 Blood Pressure Position Sitting 10/27/23 14:48 Pulse Oximetry 97 10/27/23 14:48 Oxygen Delivery Method Room Air 10/27/23 14:48 Oxygen Flow Rate 0 10/27/23 14:48 Pain Level 10 10/27/23 14:48
[2023-10-27] MEDS: Normal Saline 500 ML 1000 ML IV (15:29)
[2023-10-27] MEDS: Ondansetron 4 MG/2 ML VIAL IVP (15:30)
[2023-10-27 15:31] VITALS: TEMP 38.6
[2023-10-27 15:35] LABS: Abs Immature Grans 0.04 10^3/uL (0.0-0.06); Absolute Basophil Count 0.04 10^3/uL (0.0-0.2); Absolute Eosinophil Count 0.02 10^3/uL (0.0-0.7); Absolute Lymphocyte Count 0.63 10^3/uL (1.2-3.4); Absolute Monocyte Count 1.04 10^3/uL (0.1-0.8); Absolute Neutrophil Count 6.63 10^3/uL (1.2-6.7); Basophils % 0.5; Eosinophils % 0.2; HCT 45.2 % (40.0-50.0); HGB 15.5 g/dL (13.5-17.5); Immature Grans % 0.5; Lymphocytes % 7.5; MCH 30.1 pg (27.0-33.0); MCHC 34.3 % (32.0-36.0); MCV 88 fL (80-95); MPV 9.6 fL (8.0-11.0); Monocytes % 12.4; Neutrophils % 78.9; Platelet Count 135 10^3/uL (130-400); RBC 5.15 10^6/uL (4.36-5.78); RDW-SD 41.8 fL
[2023-10-27 15:44] LABS: PTT Activated 38.7 sec (23.6-32.8); Prothrombin Time 13.2 sec (9.1-11.1)
[2023-10-27 15:47] LABS: INR 1.3 (0.9-1.1)
[2023-10-27 15:53] LABS: ALT 22 U/L (16-63); AST 18 U/L (15-37); Albumin 3.2 g/dL (3.4-5.0); Alkaline Phosphatase 77 U/L (46-116); Anion Gap 5.9 mmol/L (3-11); BUN 21 mg/dL (7-18); Bilirubin, Total 1.1 mg/dL (0.2-1.0); CO2 28.1 mmol/L (21.0-32.0); CREATININE 1.5 mg/dL (0.70-1.30); Chloride 97 mmol/L (98-107); Glucose 244 mg/dL (74-106); Lipase 17 U/L (16-77); Potassium 3.4 mmol/L (3.5-5.1); Sodium 131 mmol/L (136-145); Total Protein 7.3 g/dL (6.4-8.2)
[2023-10-27] MEDS: Omnipaque 350 MG/ML 500 ML BTL-Imaging package IJ (16:03)
[2023-10-27] MEDS: Normal Saline - Diluent 50 ML VIAL IJ (16:06)
[2023-10-27 16:21] LABS: COVID-19 PCR Negative (Negative); Influenza A PCR Negative (Negative); Influenza B PCR Negative (Negative); RSV PCR Negative (Negative)
[2023-10-27 16:22] LABS: Source Nasopharynx
[2023-10-27] MEDS: ACETAMINOPHEN 1,000 MG/100 ML BTL 400 MG IVPB (16:50)
[2023-10-27 17:03] VITALS: BP 132/87; PULSE 90; TEMP 36.2; O2SAT 95
[2023-10-27 17:06] LABS: Bilirubin Small (Negative); Blood Large (Negative); Clarity Turbid (Clear); Glucose >=1000 mg/dL (Negative); Ketones Trace mg/dL (Negative); Leukocyte Esterase Trace (Negative); Nitrite Negative (Negative); Specific Gravity <= 1.005 (1.005-1.025); Urobilinogen 0.2 mg/dL (Up to 0.2); pH 5.5 (5-8)
[2023-10-27 17:15] LABS: C & S Indicated? Yes; RBC >50 HPF (0-2)
[2023-10-27] MEDS: CIPROFLOXACIN 400 MG/200 ML BAG 200 MG IVPB (17:56)
--- NOTE | 2023-10-27 18:06 | NUR.NOTE ---
Referral faxed to Dr Balderas for a visit Tuesday or Tuesday. This is for stent issues and Possible Pyelonephritis
[2023-10-27 19:14] VITALS: BP 121/81; PULSE 82; RESP 19; TEMP 36; O2SAT 95
== END 2023-10-27 19:17 | disposition home or self-care (01) ==
PROVIDERS: Emergency Provider Emergency Medicine; PCP Nurse Practitioner Family
DX: G47.00 Insomnia, unspecified (principal); R11.2 Nausea with vomiting, unspecified; E11.319 Type 2 diabetes mellitus with unspecified diabetic retinopathy without macular edema; N10 Acute pyelonephritis; I11.0 Hypertensive heart disease with heart failure; I50.22 Chronic systolic (congestive) heart failure; I25.2 Old myocardial infarction; Z79.4 Long term (current) use of insulin; Z79.02 Long term (current) use of antithrombotics/antiplatelets; Z79.82 Long term (current) use of aspirin; Z20.822 Contact with and (suspected) exposure to COVID-19
CPT/HCPCS: 80053; 82962; 83690; 87040; 87637; 96365; 96375; 99285; 71046; 74177; 81003; 81015; 85025; 85610; 85730; 87086; 99284; J0131; J0744; J2405

== ENCOUNTER 2023-10-31 08:22 | Day surgery (SDC) | payer OTHER, SELFPAY ==
[2023-10-31] VITALS (8 sets, daily range): BP systolic 65–121; BP diastolic 43–81; PULSE 80–88; RESP 16–22; TEMP 36.3–36.9; O2SAT 95–98; BMI 32.1
[2023-10-31] MEDS: Lactated Ringers 1,000 ML 80 ML IV (08:50)
[2023-10-31] MEDS: CIPROFLOXACIN 400 MG/200 ML BAG 200 MG IVPB (09:13)
--- NOTE | 2023-10-31 10:18 | ANES.PREOP_ITS ---
General Info Date of Service Date Performed: 10/31/23 Height: 5 ft 11 in Weight: 104.3 kg Body Mass Index (BMI): 32.1 Surgical Procedure: Operation Date: 10/31/23 09:40 Proposed Procedure Side Surgeon p Cystoscopy/Retrograde/Ureteroscopy/Removal of Ureteral Stent/Possible Stone Fragment Extraction Left Dc Balderas MD Meds Allergies and Home Medications Allergies Allergy/AdvReac Type Severity Reaction Status Date / Time bee venom protein (honey bee) Allergy Severe Swelling/Ed Verified 10/31/23 08:42 capri Penicillins Allergy Unknown Rash Verified 10/31/23 08:42 shellfish derived Allergy Unknown Rash; Verified 10/31/23 08:42 swelling Home Medication Medication Instructions Recorded blood sugar diagnostic (Blood #400 ea 06/22/19 Glucose Test strips) triamcinolone acetonide 0.5 % 1 applic topical .BID-QID #15 grams 10/19/19 topical cream lancets #400 ea 04/24/20 alcohol swabs (Alcohol Pads) 1 pad topical QID Prior to 08/08/20 administering insulin for diabetes #400 ea nitroglycerin 0.4 mg sublingual 0.4 mg sublingual Q5M PRN chest 06/08/21 tablet pain #30 tab-caps flash glucose scanning reader #1 ea 11/11/21 (FreeStyle Flako 2 [place]) aspirin 81 mg chewable tablet 81 mg PO DAILY #90 tab-caps 03/31/22 sertraline 100 mg tablet (Zoloft) 200 mg (2 x 100 mg) PO DAILY #180 03/31/22 tab-caps clopidogrel 75 mg tablet See Rx Instructions .Route 07/06/22 .COMPLEX #90 tabs bupropion HCl 150 mg 24 hr tablet, 150 mg PO QAM 08/23/22 extended release rosuvastatin 40 mg tablet (Crestor) 40 mg PO HS #90 tab-caps 01/05/23 insulin aspart U-100 100 unit/mL See Rx Instructions subcut AC #45 01/19/23 (3 mL) subcutaneous pen (Novolog mL FlexPen U-100 Insulin aspart) metoprolol succinate 50 mg 50 mg PO DAILY #90 tab-caps 02/10/23 tablet,extended release 24 hr pen needle, diabetic 31 gauge x #400 ea 02/25/2304/05 (BD Ultra-Fine Short Pen Needle) cyanocobalamin (vitamin B-12) 1,000 mcg PO DAILY #90 tab-caps 06/30/23 1,000 mcg tablet semaglutide 0.25 mg or 0.5 mg (2 0.25 - 0.5 mg (0.368 - 0.736 mL) 06/30/23 mg/3 mL) subcutaneous pen injector subcut QWEEK #10 mL (Ozempic) flash glucose sensor (FreeStyle #2 ea 07/28/23 Flako 2 Sensor kit) empagliflozin 25 mg tablet See Rx Instructions .Route 09/26/23 (Jardiance) .COMPLEX #90 tabs lisinopril 2.5 mg tablet 2.5 mg PO DAILY #90 tab-caps 09/26/23 metformin 1,000 mg tablet 1,000 mg PO BID diabetes #180 09/26/23 tab-caps pantoprazole 40 mg tablet,delayed See Rx Instructions .Route 09/26/23 release .COMPLEX #90 tabs spironolactone 25 mg tablet 12.5 mg (1/2 x 25 mg) PO DAILY #45 09/26/23 tab-caps insulin degludec 100 unit/mL (3 55 unit subcut QHS Dx: E11.9 to 10/03/23 mL) subcutaneous pen (Tresiba maintain HbA1c less than 7% FlexTouch U-100 insulin) tramadol 50 mg tablet 50 mg PO Q8H PRN pain #20 tabs 10/17/23 magnesium oxide 400 mg (241.3 mg 400 mg PO DAILY #90 tab-caps 10/25/23 magnesium) tablet ciprofloxacin HCl 500 mg tablet 500 mg PO BID 10 days #20 tabs 10/27/23 isosorbide mononitrate 30 mg See Rx Instructions .Route 10/27/23 tablet,extended release 24 hr .COMPLEX #28 tabs Current Visit Medications: Current Medications Generic Name Dose Route Start Last Admin Trade Name Freq PRN Reason Stop Dose Admin Ringer's Solution 1,000 mls @ 80 mls/hr 10/31/23 06:00 10/31/23 08:50 IV 10/31/23 23:59 80 mls/hr INFUSION KARAN Administration Ciprofloxacin 400 mg in 200 mls @ 200 mls/hr 10/31/23 06:00 10/31/23 10:15 Cipro I.V. IVPB 10/31/23 16:00 Infused PREOP KARAN Infusion IV Miscellaneous Supplies 1 each 10/31/23 06:00 Iv Access IV 10/31/23 23:59 DIRECTED KARAN Sodium Chloride 0 ml 10/31/23 06:00 Normal Saline Flush 10 Ml Syr IV 10/31/23 23:59 PRN PRN Sodium Chloride 0 ml 10/31/23 06:00 Normal Saline 10 Ml Vial IJ 10/31/23 23:59 DIRECTED PRN Sterile Water 0 ml 10/31/23 06:00 Water,Injection,Sterile 10 Ml Vial IJ 10/31/23 23:59 DIRECTED PRN PFSH Active Problems Active Problems: Problem Status Onset Code Pyelonephritis N12 Nausea & vomiting R11.2 Foot ulcer, left L97.529 Chest pain R07.9 Vitamin B12 deficiency E53.8 Subclinical hypothyroidism ~02/2023 E03.8 Chronic HFrEF (heart failure with reduced ejection fraction) 07/20/18 I50.22 Type 2 diabetes mellitus with hyperglycemia, with long-term current use of insulin 11/25/15 E11.65, Z79.4 ASCVD (arteriosclerotic cardiovascular disease) 07/28/17 I25.10 Obesity E66.9 Hypomagnesemia E83.42 Gastroesophageal reflux disease K21.9 Microalbuminuria R80.9 Callus of foot L84 Type 2 diabetes mellitus with retinopathy, with long-term current use of insulin 10/27/17 E11.319, Z79.4 Restless leg syndrome 10/31/14 G25.81 Obstructive sleep apnea, adult 10/31/14 G47.33 Nonproliferative diabetic retinopathy E11.3299 Noncompliance with medication regimen 07/06/13 Z91.14 Hyperlipidemia 07/06/13 E78.5 Erectile dysfunction 07/06/13 N52.9 Essential hypertension 07/06/13 I10 Depression 11/25/11 F32.9 Sensorineural hearing loss, bilateral 11/24/17 H90.3 Conductive hearing loss in left ear H90.12 Medical History Medical History Kidney stones Intermittent gross hematuria Osteomyelitis Diabetic foot ulcer Tubular adenoma of colon (10/18/14) NSTEMI (non-ST elevated myocardial infarction) (07/11/17) 06/2017: S/p MADONNA to [place]AD [place] [facility] [place] DAPT for a minimum of 1 year Medical History Comments:: Pt. stated he was in ER 10/27/23 for suspected pyelonephritis...informed Urology, per their recommendations are to proceed with procedure unless new events occur over the weekend (if urine or blood culture comes back positive) Surgical History Surgical History Lesion of oral mucosa 01/29/[address] Schuster. 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 No dysplasia. PAS stain negative for fungal organisms Colonoscopy - IV Sedation (10/14/14) tubular adenoma Dr. Blancas Cholecystectomy S/P coronary artery stent placement s/p MADONNA to LAD mid 2; Dr. Fercho Eddy, [facility], 07/14/2017 Tobacco Smoking/Tobacco Use Status: Never Passive smoking exposure: No Alcohol Alcohol Intake: never Substance Use Substance use: Never Substance use type: does not use Vital Signs and Lab Results Vital Signs Most Recent Vital Signs in EMR: Most Recent Vital Signs Temp Pulse Resp BP Pulse Ox 36.3 C L 110 H 22 93/57 L 98 10/31/23 08:49 10/31/23 08:49 10/31/23 08:49 10/31/23 08:49 10/31/23 08:49 Point of Care Results Point of Care Results: Finger Stick Blood Glucose 219 10/31/23 08:41 Lab Results Blood Type / Crossmatch: No Data to Display Complete Blood Count: White Blood Count 8.40 10^3/uL (4.4-10.8) 10/27/23 15:22 Red Blood Count 5.15 10^6/uL (4.36-5.78) 10/27/23 15:22 Hemoglobin 15.5 g/dL (13.5-17.5) 10/27/23 15:22 Hematocrit 45.2 % (40.0-50.0) 10/27/23 15:22 Platelet Count 135 10^3/uL (130-400) 10/27/23 15:22 Complete Metabolic Panel: Sodium 131 mmol/L (136-145) L 10/27/23 15:22 Potassium 3.4 mmol/L (3.5-5.1) L 10/27/23 15:22 Chloride 97 mmol/L (98-107) L 10/27/23 15:22 Carbon Dioxide 28.1 mmol/L (21.0-32.0) 10/27/23 15:22 BUN 21 mg/dL (7-18) H 10/27/23 15:22 Creatinine 1.5 mg/dL (0.70-1.30) H 10/27/23 15:22 Est GFR (CKD-EPI 2020) 53.30 (mL/min/1.73m2) 10/27/23 15:22 Calcium 9.0 mg/dL (8.5-10.1) 10/27/23 15:22 Albumin 3.2 g/dL (3.4-5.0) L 10/27/23 15:22 Glucose 244 mg/dL (74-106) H 10/27/23 15:22 Liver Function Panel: Alanine Aminotransferase (ALT/SGPT) 22 U/L (16-63) 10/27/23 15: 22 Aspartate Amino Transf (AST/SGOT) 18 U/L (15-37) 10/27/23 15:22 Coagulation Panel: INR International Normalized Ratio 1.3 (0.9-1.1) H 10/27/23 15 :22 Prothrombin Time 13.2 sec (9.1-11.1) H 10/27/23 15:22 Activated Partial Thromboplast Time 38.7 sec (23.6-32.8) H 10/27/23 15:22 Cardiac Panel: No Data to Display Arterial Blood Gas: No Data to Display Venous Blood Gas: No Data to Display Pancreas Panel: Lipase 17 U/L (16-77) 10/27/23 15:22 Thyroid Panel: No Data to Display Infectious Disease: Coronavirus (COVID-19)(PCR) Negative (Negative) 10/27/23 15:36 Coronavirus 2019 Source Nasopharynx 10/27/23 15:36 Influenza Virus Type A (PCR) Negative (Negative) 10/27/23 15:3 6 Influenza Virus Type B (PCR) Negative (Negative) 10/27/23 15:3 6 Respiratory Syncytial Virus (PCR) Negative (Negative) 10/27/23 15:36 Blood Cultures: No Data to Display Toxicology Panel: No Data to Display Imaging and Studies Imaging and Studies Study information below may be from another EMR and interpreted by another provider. Please see original notes in EMR for more complete details. EKG Summary: 09/12: sinus, PVCs. Stress Test Summary: 09/12: old AMI on ECG. MPI with apical thinning vs tiny infarction. there is no ischemia. no sig wall motion abnormalities. Echocardiogram Summary: 08/10: LVEF 40-45%, the inferior and posterior guzman are hypocontractile. trivial mitral dn tricuspid regurg. Anesthesia Assessment and Plan Anesthesia History Personal History: No History of Anesthesia Complications Family History: No Family History of Anesthesia Complications Exercise Tolerance Exercise Tolerance: Metabolic Equivalents>4 Cardiac & Pulmonary Exam Cardiac Exam: Normal S1/S2 Heart Sounds Pulmonary Exam: Clear Bilateral Breath Sounds Implantable Cardiac Device Does patient have a Pacemaker or an ICD?: No Airway Exam Known Difficult Airway: No Mallampati Class: 4 Mouth Opening: Normal (> 3cm) Thyromental Distance: Less than 3 cm Neck Range of Motion: Full ROM Neck Circumference: Thick Teeth Condition: Generalized Poor Dentition ASA Classification ASA Score: ASA 3 Emergency Case?: No NPO Status NPO Status: NPO Clears >2 hours, Solids >8 hours Anesthesia Plan Resuscitation Status: Full Code Anesthesia Technique: General Anesthesia Airway Planned: Natural Airway Monitors Used: Standard Monitors
--- NOTE | 2023-10-31 11:03 | W.PM.HP.N ---
Date of service: 10/31/23 Time of Service: 11:03 Assessment and Plan Assessment and plan (1) Kidney stones: Assessment and plan: The patient's blood and urine cultures showed no bacterial growth. He was afebrile and he did not have an elevated WBC. I think we can safely say he did not have pyelonephritis. We will move ahead with cystoscopy and stent removal History of Present Illness History of Present Illness Chief Complaint: Left renal stone Narrative: This is a 58 year old gentleman who presented to our service with hematuria and a large left renal stone. He was treated with cystoscopy and holmium laser lithotripsy of his stone. I placed a stent and made plans for stent removal and retrograde pyelogram and possible uretroscopy to address any significant remaining stone burden. Since his initial surgery, he has been seen in the ER for flank pain. His CT raised the question of possible pyelonephritis but only one small stone remained in the left kidney. Review of Systems Narrative: No fevers or chills Decreased hearing acuity. No vision change or dysphasia Hx diabetes and hypothyroidism Sleep apnea. No hemoptysis No chest pain or palpitations GERD. No hepatitis, ulcers, jaundice, diarrhea or constipation No seizures, strokes or peripheral neuropathy No bleeding disorders or anemia No gout PFSH All Active Problems (Updated 10/31/23 @ 11:07 by Dc Balderas MD) Nausea & vomiting (Acute) Foot ulcer, left (Acute) Chest pain (Acute) Vitamin B12 deficiency (Acute) Subclinical hypothyroidism (Chronic ~02/2023) Monitor Chronic HFrEF (heart failure with reduced ejection fraction) (Chronic 07/20/18) 2018: LVEF 30-35% at presentation; most recent echo 07/24/2020: LVEF 40-45% Type 2 diabetes mellitus with hyperglycemia, with long-term current use of insulin (Chronic 11/25/15) ASCVD (arteriosclerotic cardiovascular disease) (Chronic 07/28/17) NSTEMI with HFrEF 07/11/2017 [place]AD[place] [facility] [facility] [place]esity (Chronic) Hypomagnesemia (Chronic) Gastroesophageal reflux disease (Chronic) Microalbuminuria (Chronic) Callus of foot (Chronic) Type 2 diabetes mellitus with retinopathy, with long-term current use of insulin (Chronic 10/27/17) Restless leg syndrome (Chronic 10/31/14) Sleep Medicine Obstructive sleep apnea, adult (Chronic 10/31/14) Pt. states he has not been using device 09/01/20 Severe, C-pap, Dr. Almeida continue on CPAP therapy with mask of choice,heated humidification and ramp. pressure should be set at 12 cm/H2o,alternatively auto CPAP 8-14 cm/H2O can be used. (sleep study note cameron Nonproliferative diabetic retinopathy (Chronic) Noncompliance with medication regimen (Chronic 07/06/13) Hyperlipidemia (Chronic 07/06/13) Erectile dysfunction (Chronic 07/06/13) Essential hypertension (Chronic 07/06/13) Depression (Chronic 11/25/11) Sensorineural hearing loss, bilateral (Chronic 11/24/17) Conductive hearing loss in left ear (Acute) Medical History (Updated 10/31/23 @ 11:07 by Dc Balderas MD) Kidney stones Intermittent gross hematuria Osteomyelitis Diabetic foot ulcer Tubular adenoma of colon (10/18/14) NSTEMI (non-ST elevated myocardial infarction) (07/11/17) 06/2017: [place] [facility] [place] a minimum of 1 year Surgical History Lesion of oral mucosa 01/29/[address] Schuster. 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 No dysplasia. PAS stain negative for fungal organisms Colonoscopy - IV Sedation (10/14/14) tubular adenoma Dr. Blancas Cholecystectomy S/P coronary artery stent placement s/p MADONNA to LAD mid 2; Dr. 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 Do you feel safe at home: Yes Do you feel safe in your relationship?: Yes Meds Allergies and Home Medications Allergies Allergy/AdvReac Type Severity Reaction Status Date / Time bee venom protein (honey bee) Allergy Severe Swelling/Ed Verified 10/31/23 08:42 capri Penicillins Allergy Unknown Rash Verified 10/31/23 08:42 shellfish derived Allergy Unknown Rash; Verified 10/31/23 08:42 swelling Home Medications Medication Instructions Recorded Confirmed Type blood sugar diagnostic (Blood #400 ea 06/22/19 10/27/23 Rx Glucose Test strips) triamcinolone acetonide 0.5 % 1 applic topical .BID-QID #15 grams 10/19/19 10/31/23 Rx topical cream lancets #400 ea 04/24/20 10/27/23 Rx alcohol swabs (Alcohol Pads) 1 pad topical QID Prior to 08/08/20 10/31/23 Rx administering insulin for diabetes #400 ea nitroglycerin 0.4 mg sublingual 0.4 mg sublingual Q5M PRN chest 06/08/21 10/31/23 Rx tablet pain #30 tab-caps flash glucose scanning reader #1 ea 11/11/21 10/27/23 Rx (FreeStyle Flako 2 [place]) aspirin 81 mg chewable tablet 81 mg PO DAILY #90 tab-caps 03/31/22 10/28/23 Rx sertraline 100 mg tablet (Zoloft) 200 mg (2 x 100 mg) PO DAILY #180 03/31/22 10/31/23 Rx tab-caps clopidogrel 75 mg tablet See Rx Instructions .Route 07/06/22 10/28/23 Rx .COMPLEX #90 tabs bupropion HCl 150 mg 24 hr tablet, 150 mg PO QAM 08/23/22 10/31/23 History extended release rosuvastatin 40 mg tablet (Crestor) 40 mg PO HS #90 tab-caps 01/05/23 10/31/23 Rx insulin aspart U-100 100 unit/mL See Rx Instructions subcut AC #45 01/19/23 10/31/23 Rx (3 mL) subcutaneous pen (Novolog mL FlexPen U-100 Insulin aspart) metoprolol succinate 50 mg 50 mg PO DAILY #90 tab-caps 02/10/23 10/31/23 Rx tablet,extended release 24 hr pen needle, diabetic 31 gauge x #400 ea 02/25/23 10/27/23 Rx 5/16 (BD Ultra-Fine Short Pen Needle) cyanocobalamin (vitamin B-12) 1,000 mcg PO DAILY #90 tab-caps 06/30/23 10/31/23 Rx 1,000 mcg tablet semaglutide 0.25 mg or 0.5 mg (2 0.25 - 0.5 mg (0.368 - 0.736 mL) 06/30/23 10/28/23 Rx mg/3 mL) subcutaneous pen injector subcut QWEEK #10 mL (Ozempic) flash glucose sensor (FreeStyle #2 ea 07/28/23 10/27/23 Rx Flako 2 Sensor kit) empagliflozin 25 mg tablet See Rx Instructions .Route 09/26/23 10/28/23 Rx (Jardiance) .COMPLEX #90 tabs lisinopril 2.5 mg tablet 2.5 mg PO DAILY #90 tab-caps 09/26/23 10/31/23 Rx metformin 1,000 mg tablet 1,000 mg PO BID diabetes #180 09/26/23 10/31/23 Rx tab-caps pantoprazole 40 mg tablet,delayed See Rx Instructions .Route 09/26/23 10/31/23 Rx release .COMPLEX #90 tabs spironolactone 25 mg tablet 12.5 mg (1/2 x 25 mg) PO DAILY #45 09/26/23 10/31/23 Rx tab-caps insulin degludec 100 unit/mL (3 55 unit subcut QHS Dx: E11.9 to 10/03/23 10/31/23 History mL) subcutaneous pen (Tresiba maintain HbA1c less than 7% FlexTouch U-100 insulin) tramadol 50 mg tablet 50 mg PO Q8H PRN pain #20 tabs 10/17/23 10/31/23 Rx magnesium oxide 400 mg (241.3 mg 400 mg PO DAILY #90 tab-caps 10/25/23 10/31/23 Rx magnesium) tablet ciprofloxacin HCl 500 mg tablet 500 mg PO BID 10 days #20 tabs 10/27/23 10/28/23 Rx isosorbide mononitrate 30 mg See Rx Instructions .Route 10/27/23 10/28/23 Rx tablet,extended release 24 hr .COMPLEX #28 tabs Exam Const General: cooperative Neck Neck: supple Resp Effort & Inspection: normal respiratory effort Auscultation: clear to auscultation bilaterally Cardio Rate: regular rate Rhythm: regular rhythm GI Palpation: soft and no masses Neuro General: patient alert, patient awake and patient oriented x3 Results Last Vital Signs Temp 36.3 C L 10/31/23 08:49 Pulse 84 10/31/23 08:49 Resp 22 10/31/23 08:49 BP 119/81 10/31/23 08:49 Pulse Ox 98 10/31/23 08:49 Time Spent Time spent with Patient: <40 minutes Time was spent: other
--- NOTE | 2023-10-31 11:15 | DI.RAD_ITS ---
Exam(s) XR RETROGRADE IN OR EXAM: XR RETROGRADE IN OR CLINICAL HISTORY: gross hematuria. TECHNIQUE: Fluoroscopy was provided for the referring physician for guidance with performing retrogr sindy procedure. COMPARISON: No exams were available for comparison FINDINGS: Please see procedure note for details. Fluoro time: 7.5 seconds RADIATION DOSE DELIVERED: sirena Lee=2.7 mGy
[2023-10-31] MEDS: Omnipaque 300 MG/ML 50 ML BTL (11:35)
[2023-10-31] MEDS: Lidocaine 2% Jelly 11 ML SYR (11:35)
--- NOTE | 2023-10-31 12:04 | W.PM.DSUDISC ---
Date of service: 10/31/23 Time of Service: 12:04 Discharge Plan Disposition Condition: Stable Discharge Details Reason For Visit: cystoscopy with stent removal Attending Provider: Dc Balderas Primary Care Provider: None,None Home Meds and New Rx's Prescriptions: No Action metoprolol succinate 50 mg tablet extended release 24 hr 50 mg PO DAILY Qty: 90 3RF Ozempic 0.25 mg or 0.5 mg (2 mg/3 mL) pen injector 0.25 - 0.5 mg subcut QWEEK Qty: 10 3RF Rx Instructions: Take 0.25 mg once weekly for 4 weeks then increase to 0.5 mg weekly thereafter cyanocobalamin (vitamin B-12) 1,000 mcg tablet 1,000 mcg PO DAILY Qty: 90 3RF triamcinolone acetonide 0.5 % cream 1 applic TP .BID-QID Qty: 15 0RF Rx Instructions: Apply thin film to affected area(s) two-four times daily until resolution (DME) lancets Misc See Rx Instructions .ROUTE .MEDSUPPLY Qty: 400 3RF Rx Instructions: As directed to check blood glucose four times daily. On insulin. Dispense covered brand. bupropion HCl 150 mg tablet extended release 24 hr 150 mg PO QAM Rx Instructions: Dose increased 07/2022 (DME) pen needle, diabetic [BD Ultra-Fine Short Pen Needle] 31 gauge x 5/16 needle See Rx Instructions .ROUTE .COMPLEX Qty: 400 3RF Dose Instruction: USE ONCE DAILY TO ADMINISTER LANTUS Rx Instructions: Use as directed to administer insulin 4 times daily. insulin degludec [Tresiba FlexTouch U-100] 100 unit/mL (3 mL) insulin pen 55 unit subcut QHS (DME) Blood Glucose Test Strip See Rx Instructions .ROUTE .MEDSUPPLY Qty: 400 3RF Rx Instructions: As directed to check blood glucose QID. On insulin. Dispense covered brand. alcohol swabs [Alcohol Pads] Pads, Medicated 1 pad topical QID Qty: 400 3RF nitroglycerin 0.4 mg tablet, sublingual 0.4 mg SL Q5M MDD 3 doses PRN (Reason: chest pain) Qty: 30 0RF Rx Instructions: Take 0.4 mg every 5 minutes up to 3 doses; seek emergent medical care if no relief (DME) FreeStyle Flako 2 [place] Misc See Rx Instructions .ROUTE .MEDSUPPLY Qty: 1 0RF Rx Instructions: As directed aspirin 81 mg tablet,chewable 81 mg PO DAILY Qty: 90 3RF Hold Instructions: Home Medication placed on hold at Doctor's office sertraline [Zoloft] 100 mg tablet 200 mg PO DAILY Qty: 180 3RF clopidogrel 75 mg tablet See Rx Instructions .ROUTE .COMPLEX Qty: 90 0RF Hold Instructions: Home Medication placed on hold at Doctor's office Dose Instruction: TAKE 1 TABLET BY MOUTH DAILY Patient Comments: Pt. states his PCP IS aware he has been off this medication for 2 weeks Rx Instructions: TAKE 1 TABLET BY MOUTH DAILY rosuvastatin [Crestor] 40 mg tablet 40 mg PO HS Qty: 90 3RF Rx Instructions: FOR CHOLESTEROL & HEART PROTECTION insulin aspart U-100 [Novolog FlexPen U-100 Insulin] 100 unit/mL (3 mL) insulin pen See Rx Instructions subcut AC Qty: 45 3RF Rx Instructions: 12-16 units per sliding scale subcut before meals; (DME) FreeStyle Flako 2 Sensor Kit See Rx Instructions .ROUTE .COMPLEX Qty: 2 0RF Dose Instruction: TO MAINTAIN HBA1C LESS THAN 7%; DIRECTED Rx Instructions: TO MAINTAIN HBA1C LESS THAN 7%; DIRECTED Jardiance 25 mg tablet See Rx Instructions .ROUTE .COMPLEX Qty: 90 3RF Dose Instruction: TAKE 1 TABLET BY MOUTH DAILY Rx Instructions: TAKE 1 TABLET BY MOUTH DAILY lisinopril 2.5 mg tablet 2.5 mg PO DAILY Qty: 90 3RF spironolactone 25 mg tablet 12.5 mg PO DAILY Qty: 45 3RF metformin 1,000 mg tablet 1,000 mg PO BID Qty: 180 3RF Rx Instructions: pantoprazole 40 mg tablet,delayed release (DR/EC) See Rx Instructions .ROUTE .COMPLEX Qty: 90 3RF Dose Instruction: TAKE 1 TABLET BY MOUTH EVERY MORNING AT LEAST 30 MINUTES BEFORE FIRST MEAL Rx Instructions: TAKE 1 TABLET BY MOUTH EVERY MORNING AT LEAST 30 MINUTES BEFORE FIRST MEAL magnesium oxide 400 mg (241.3 mg magnesium) tablet 400 mg PO DAILY Qty: 90 3RF isosorbide mononitrate 30 mg tablet extended release 24 hr See Rx Instructions .ROUTE .COMPLEX Qty: 28 0RF Dose Instruction: TAKE 1 TABLET BY MOUTH DAILY Rx Instructions: TAKE 1 TABLET BY MOUTH DAILY tramadol 50 mg tablet 50 mg PO Q8H PRN (Reason: pain) Qty: 20 0RF Rx Instructions: may take if pain not controlled with tylenol and NSAIDs ciprofloxacin HCl 500 mg tablet 500 mg PO BID 10 Days Qty: 20 0RF Patient Comments: hasn't started...never received from pharmacy Discharge Instructions Additional Instructions: OK to restart all meds followup @ 6 weeks with renal US no need to strain urine Activity:: Activity as Tolerated Shower/Bathe:: 24 hours Diet:: As Tolerated DS: Diagnosis Discharge Diagnosis (1) Kidney stones:
--- NOTE | 2023-10-31 12:07 | ROE_ITS ---
Date of service: 10/31/23 Time of Service: 12:07 Operative Note Operative Note DATE OF PROCEDURE: 10/31/23 PRE-OP DIAGNOSIS: left kidney stone POST-OP DIAGNOSIS: same PROCEDURE: cystoscopy, remove left ureteral stent, left retrograde pyelogram SURGEON: Dc Balderas ANESTHESIA TYPE: Local By Surgeon and General:No Airway Refer to Anesthesia Record ESTIMATED BLOOD LOSS: 0 PATHOLOGY: none sent COMPLICATIONS: None Patient was transported to: same day Patient's condition: stable Implants: none Indications: This is a 58-year-old gentleman who was previously identified as having a 1 cm stone in the left renal pelvis. He was treated with ureteroscopy and holmium laser lithotripsy of the stone. We placed a ureteral stent at the completion of the procedure. He presents now for stent removal and retrograde pyelogram to ensure all stone fragments had been removed. In the interim, the patient was seen in the emergency department and a CT scan was performed. We now know that there are no large stone fragments remaining in the kidney. There was some concern about development of pyelonephritis based on his CT findings, but the patient was afebrile, had no elevated white blood count and negative urine and blood cultures, so I do not believe that he actually had pyelonephritis. Procedure Description: The patient was brought to the operating room on 10/31/2023. He was given preoperative IV antibiotics. After successful induction of general anesthesia, he was placed in the dorsal lithotomy position. His genitalia was prepped and draped. 2% Xylocaine jelly was instilled into the urethra to act as a local anesthetic. A 22 Sinhala rigid cystoscope was passed through the urethra into the bladder. The urethra and bladder were inspected with the 30 degree lens. The pendulous, bulbar and membranous urethra's appeared normal with no s trictures. The prostatic urethra showed some lateral lobe enlargement but no significant median lobe. The bladder neck was entered and the bladder mucosa was inspected. The stent could be seen protruding from the left ureteral orifice. The mucosa surrounding the orifice was quite edematous. I grasped the stent with alligator forceps and brought the stent out to the level of the urethral meatus. I then passed a guidewire through the lumen of the stent and removed the stent. I then passed a ureteral access catheter over the wire and positioned the catheter in the left distal ureter. I removed the wire and performed a retrograde pyelogram by injecting Omnipaque through the access catheter under fluoroscopic guidance. The ureter and collecting system appeared intact with no extravasation of contrast. The left kidney drained promptly on a 5-minute drainage film. Based on today's examination, there is no significant stone burden remaining. The bladder was emptied and the cystoscope was withdrawn. The patient tolerated the procedure well with no complications. He was taken to the day surgery unit in stable condition.
[2023-10-31] MEDS: ePHEDrine 25 MG/5 ML Syringe IVP (12:16)
--- NOTE | 2023-10-31 13:17 | W.ANESPOSTOP ---
Postoperative Evaluation Date, Time and Location Date Performed: 10/31/23 Time Performed: 13:17 Patient Location: Day Surgery Unit Vital Signs Most Recent Imported Vital Signs: Most Recent Vital Signs Temp Pulse Resp BP Pulse Ox 36.5 C 80 18 119/81 96 10/31/23 12:51 10/31/23 12:51 10/31/23 12:51 10/31/23 12:51 10/31/23 12:51 Pain Score Most Recent Pain Score: Most Recent Pain Score Pain Level 0 10/31/23 12:52 Assessment Mental Status: Awake (Alert & Oriented to Patient Baseline) Airway and Respiratory Function: Patent airway with normal (patient baseline) respiratory exam Cardiovascular Function: Hemodynamically Stable Hydration Status: Adequately Hydrated Nausea & Vomiting: No Nausea or Vomiting Pain: Pt. Denies Any Pain Peripheral Nerve Block: Patient did not receive a nerve block
== END 2023-10-31 13:45 | disposition home or self-care (01) ==
PROVIDERS: Visit Provider Urology
PROC: (CPT 52005; principal; 2023-10-31 09:30)
DX: N20.0 Calculus of kidney (principal); R31.9 Hematuria, unspecified; E11.9 Type 2 diabetes mellitus without complications; E03.9 Hypothyroidism, unspecified; K21.9 Gastro-esophageal reflux disease without esophagitis; G47.30 Sleep apnea, unspecified
CPT/HCPCS: 52005; 74420; J0744; J2001; J2405; J2704; J3010; Q9967

== ENCOUNTER 2023-12-08 07:53 | Inpatient (IN) | payer OTHER, SELFPAY ==
[2023-12-08] VITALS (53 sets, daily range): BP systolic 91–165; BP diastolic 62–127; PULSE 76–91; RESP 16–18; TEMP 36.4–36.7; O2SAT 93–97
--- NOTE | 2023-12-08 08:00 | RT.EKG_ITS ---
APPROVED REPORT Exam: Resting ECG Reason for Exam: Dizziness Patient Location: E HR:77 bpm ECG Measurements Heart Rate 77 AXIS MN 85 P -4 QRSd 122 QRS -40 QT 406 T 4 QTc 460 Conclusion Sinus rhythm...normal P axis, V-rate 60- 99
--- NOTE | 2023-12-08 08:17 | ED.GENADUL_ITS ---
HPI General Date/Time Provider Initiated Documentation: 12/08/23 08:14 . HPI Narrative: Patient presents emergency department via ambulance after he states that he sustained a fall this morning falling into his right hip complaining of mild right hip pain. States that he has been falling frequently and having pre- syncopal episodes. Reports that he gets very dizzy and then he falls and passes out he said he had like 4 episodes. States that he had heart attack and had his stents placed last 2016. Denies any shortness of breath denies any headache denies any nausea denies any vomiting denies any fever denies any chills. Related Data Home Medications Medication Instructions Recorded Confirmed blood sugar diagnostic (Blood #400 ea 06/22/19 10/27/23 Glucose Test strips) triamcinolone acetonide 0.5 % 1 applic topical .BID-QID #15 grams 10/19/19 12/13/23 topical cream lancets #400 ea 04/24/20 10/27/23 alcohol swabs (Alcohol Pads) 1 pad topical QID Prior to 08/08/20 12/08/23 administering insulin for diabetes #400 ea nitroglycerin 0.4 mg sublingual 0.4 mg sublingual Q5M PRN chest 06/08/21 12/13/23 tablet pain #30 tab-caps flash glucose scanning reader #1 ea 11/11/21 10/27/23 (FreeStyle Flako 2 Raymond) clopidogrel 75 mg tablet See Rx Instructions .Route 07/06/22 12/13/23 .COMPLEX #90 tabs bupropion HCl 150 mg 24 hr tablet, 300 mg PO QAM 08/23/22 12/13/23 extended release insulin aspart U-100 100 unit/mL See Rx Instructions subcut AC #45 01/19/23 12/13/23 (3 mL) subcutaneous pen (Novolog mL FlexPen U-100 Insulin aspart) metoprolol succinate 50 mg 50 mg PO DAILY #90 tab-caps 02/10/23 12/13/23 tablet,extended release 24 hr pen needle, diabetic 31 gauge x #400 ea 02/25/23 10/27/2304/05 (BD Ultra-Fine Short Pen Needle) cyanocobalamin (vitamin B-12) 1,000 mcg PO DAILY #90 tab-caps 06/30/23 12/08/23 1,000 mcg tablet semaglutide 0.25 mg or 0.5 mg (2 0.25 - 0.5 mg (0.368 - 0.736 mL) 06/30/23 12/13/23 mg/3 mL) subcutaneous pen injector subcut QWEEK #10 mL (Ozempic) flash glucose sensor (FreeStyle #2 ea 07/28/23 10/27/23 Flako 2 Sensor kit) empagliflozin 25 mg tablet See Rx Instructions .Route 09/26/23 12/13/23 (Jardiance) .COMPLEX #90 tabs metformin 1,000 mg tablet 1,000 mg PO BID diabetes #180 09/26/23 12/13/23 tab-caps pantoprazole 40 mg tablet,delayed See Rx Instructions .Route 09/26/23 12/13/23 release .COMPLEX #90 tabs spironolactone 25 mg tablet 12.5 mg (1/2 x 25 mg) PO DAILY #45 09/26/23 12/13/23 tab-caps insulin degludec 100 unit/mL (3 55 unit subcut QHS Dx: E11.9 to 10/03/23 12/13/23 mL) subcutaneous pen (Tresiba maintain HbA1c less than 7% FlexTouch U-100 insulin) magnesium oxide 400 mg (241.3 mg 400 mg PO DAILY #90 tab-caps 10/25/23 12/13/23 magnesium) tablet isosorbide mononitrate 30 mg See Rx Instructions .Route 11/24/23 12/13/23 tablet,extended release 24 hr .COMPLEX #28 tabs rosuvastatin 40 mg tablet (Crestor) 40 mg PO HS #90 tab-caps 11/24/23 12/13/23 cholecalciferol (vitamin D3) 25 2,000 mcg (80 x 25 mcg (1,000 12/12/23 12/13/23 mcg (1,000 unit) tablet unit)) PO DAILY #60 tabs midodrine 10 mg tablet 10 mg PO TID #90 tabs 12/12/23 12/13/23 sertraline 100 mg tablet (Zoloft) 200 mg (2 x 100 mg) PO DAILY #180 12/13/23 12/13/23 tab-caps Previous Rx's Medication Instructions Recorded blood sugar diagnostic (Blood #400 ea 06/22/19 Glucose Test strips) triamcinolone acetonide 0.5 % 1 applic topical .BID-QID #15 grams 10/19/19 topical cream lancets #400 ea 04/24/20 alcohol swabs (Alcohol Pads) 1 pad topical QID Prior to 08/08/20 administering insulin for diabetes #400 ea nitroglycerin 0.4 mg sublingual 0.4 mg sublingual Q5M PRN chest 06/08/21 tablet pain #30 tab-caps flash glucose scanning reader #1 ea 11/11/21 (FreeStyle Flako 2 Raymond) clopidogrel 75 mg tablet See Rx Instructions .Route 07/06/22 .COMPLEX #90 tabs insulin aspart U-100 100 unit/mL See Rx Instructions subcut AC #45 01/19/23 (3 mL) subcutaneous pen (Novolog mL FlexPen U-100 Insulin aspart) metoprolol succinate 50 mg 50 mg PO DAILY #90 tab-caps 02/10/23 tablet,extended release 24 hr pen needle, diabetic 31 gauge x #400 ea 02/25/23 5/16 (BD Ultra-Fine Short Pen Needle) cyanocobalamin (vitamin B-12) 1,000 mcg PO DAILY #90 tab-caps 06/30/23 1,000 mcg tablet semaglutide 0.25 mg or 0.5 mg (2 0.25 - 0.5 mg (0.368 - 0.736 mL) 06/30/23 mg/3 mL) subcutaneous pen injector subcut QWEEK #10 mL (Ozempic) flash glucose sensor (FreeStyle #2 ea 07/28/23 Flako 2 Sensor kit) empagliflozin 25 mg tablet See Rx Instructions .Route 09/26/23 (Jardiance) .COMPLEX #90 tabs metformin 1,000 mg tablet 1,000 mg PO BID diabetes #180 09/26/23 tab-caps pantoprazole 40 mg tablet,delayed See Rx Instructions .Route 09/26/23 release .COMPLEX #90 tabs spironolactone 25 mg tablet 12.5 mg (1/2 x 25 mg) PO DAILY #45 09/26/23 tab-caps magnesium oxide 400 mg (241.3 mg 400 mg PO DAILY #90 tab-caps 10/25/23 magnesium) tablet isosorbide mononitrate 30 mg See Rx Instructions .Route 11/24/23 tablet,extended release 24 hr .COMPLEX #28 tabs rosuvastatin 40 mg tablet (Crestor) 40 mg PO HS #90 tab-caps 11/24/23 cholecalciferol (vitamin D3) 25 2,000 mcg (80 x 25 mcg (1,000 12/12/23 mcg (1,000 unit) tablet unit)) PO DAILY #60 tabs midodrine 10 mg tablet 10 mg PO TID #90 tabs 12/12/23 sertraline 100 mg tablet (Zoloft) 200 mg (2 x 100 mg) PO DAILY #180 12/13/23 tab-caps Allergies Allergy/AdvReac Type Severity Reaction Status Date / Time bee venom protein (honey bee) Allergy Severe Swelling/Ed Verified 12/13/23 12:09 capri Penicillins Allergy Unknown Rash Verified 12/13/23 12:09 shellfish derived Allergy Unknown Rash; Verified 12/13/23 12:09 swelling General Stated Complaint: Fall/Non TraumaCriteria VAN: 3 Review of Systems Narrative: Review of Systems: Constitutional: No fevers, chills, sweats Eye: No recent visual problems ENT: No ear pain, nasal congestion, sore throat Respiratory: No shortness of breath, cough Cardiovascular: No Chest pain, palpitations, syncope Gastrointestinal: No nausea, vomiting, diarrhea Genitourinary: No hematuria Dexter/Lymph: Negative for bruising tendency, swollen lymph glands Endocrine: Negative for excessive thirst, excessive hunger Musculoskeletal: No back pain, neck pain, joint pain, muscle pain, decreased range of motion Integumentary: No rash, pruritus, abrasions Neurologic: Alert & oriented X 4 Psychiatric: No anxiety, depression Exam Narrative Exam Narrative: Exam; vitals signs as reported above normal Constitutional; In no acute distress, afebrile General: cooperative, healthy appearing, comfortable and no acute distress HEENT: Head: normal to inspection, no palpable skull fracture and normocephalic atraumatic Eyes: : appearance normal, both eyes and all related structures EOM intact bilaterally Pupils: PERRL : conjunctiva normal Direct ophthalmoscopy: normal light reflex, normal conjunctiva, normal visual acuity Ears: Normal TM, normal external canal Nose: normal no rhinorreha Neck no JVD, supple non tender Neck: normal visual inspection, full ROM and no lymphadenopathy Chest: normal inspection of the chest Respiratory : normal respiratory effort and able to speak in complete sentences no wheezing no rales Cardio Rate: regular rate, rhythm: regular rhythm normal heart sounds S1 and S2 no murmurs, gallops, or rubs GI : normal to inspection, normal bowel sounds, soft, non tender, non distended, no organomegaly Back/Spine/ no CVA tenderness Thoracic/Lumbar Spine: no tenderness or deformities Skin no rashes or lesions Neuro: patient alert oriented x 4 and no meningeal signs, Cranial Nerves: CN's II-XI intact bilaterally, Cognition: normal cognition, Speech: speech normal, Gait: normal gait, Depp tendon reflexes normal 2+ muscle strength 5/5 bilaterally Extremities, no edema, full range of motion, normal strength Course Vital Signs Vital signs: Vital Signs Temperature 36.4 C L 12/08/23 07:56 Pulse 76 12/08/23 07:56 Respiratory Rate 16 12/08/23 07:56 Blood Pressure 119/72 12/08/23 07:56 Pulse Oximetry 93 12/08/23 07:56 Temperature 36.4 C L 12/08/23 07:56 Temperature Source Temporal Artery Scan 12/08/23 07:56 Pulse 76 12/08/23 07:56 Respiratory Rate 16 12/08/23 07:56 Respiratory Effort Normal, Non-Labored 12/08/23 08:03 Blood Pressure 119/72 12/08/23 07:56 Pulse Oximetry 93 12/08/23 07:56 Oxygen Delivery Method Room Air 12/08/23 07:56 Oxygen Flow Rate 0 12/08/23 07:56 Medical Decision Making Medical decision making MDM: Summary: Patient presents emergency department after multiple falls and is orthostatic labs with slightly decreased orthostatic lightheadedness patient has autonomic dysfunction due to diabetes. PT and OT evaluated patient and deemed that he is not safe to be home so he will be admitted as an inpatient for rehab treatment as discharged EKG was normal, the head was normal labs completely unremarkable except for mild hyperglycemia urinalysis was negative EKG did not show abnormality and a [id number] ultrasound shows normal ejection fraction changes from an old inferior WA CT head CT chest abdomen pelvis does not show any abnormality Ultrasound as described above Data Review Analysis All the data on this patient was reviewed by me including laboratory and imaging studies as well as bedside studies performed by me Independent review of Studies Imaging CT head Chest abdomen pelvis and CT head as described above Rest Lab: Labs show no significant abnormality Risk Stratification: Patient with longstanding diabetes has been falling frequently and likely did not sustain any fracture but has most likely diabetic autonomic dysfunction and associated discharged home patient able to walk and continue to be hydrated and will need to be admitted to the hospital. I spoke with Dr. Jeter increase patient Diff Diagnosis: 1. 2. orthostatic hypotension Diabetic autonomic dysfunctio 3. syncope 4. 5. Consultants I have spoken with Dr. Jeter who agrees patient needs admission Shared disposition: pt understands disposition Impression: Medical Records Medical records reviewed: Yes I reviewed the patient's medical records. Imaging Data Radiologic Study: Attestation: I personally reviewed and interpreted this imaging study as follows: Imaging: X-Ray Radiologist's impression: Close Hip X-Ray (Signed) Virginia Mims - 12/08/23 Launch?Image Patient Name: Ganesh Tang JR Unit #: [id number] Loc: ER Ordering Provider: Abelardo Garber M.D. Status: REG ER Primary Care Provider: Unknown,Unknown Date of Exam: 12/08/23 Sex: M Admission Date: 12/08/23 : 1965 Age: 58 Exam(s) XR HIP RT COMPLETE AP PELVIS EXAM: XR HIP RT COMPLETE AP PELVIS CLINICAL HISTORY: fall and right hip pain. TECHNIQUE: 2D digital imaging was performed. Two views COMPARISON: No exams were available for comparison FINDINGS: BONES: No acute fracture is present. No bony destructive lesion is seen. JOINTS: No dislocation present. Hip joint spaces are maintained. SI joints and pubic symphysis unremarkable. SOFT TISSUE: Defied vas deferens. IMPRESSION: No acute abnormality. DATA REPOSITORY: RADIATION DOSE DELIVERED: Ordered By: Abelardo Garber M.D. CC: Dictated By: Virginia Mims M.D. 12/08/23912 <Electronically signed by Virginia Mims M.D. in OV> 12/08/23912 Transcribed By: Virginia Mims 12/08/23912 ECG Data Attestation: I personally reviewed and interpreted this ECG (s) as follows: Prior ECG tracings: available for review Interpretation: Normal sinus rhythm heart rate 77 nonspecific IVCD no acute ST-T changes unchanged from the previous EKG Quality:SDOH Health Related Social Needs: 2 No Data to Display PFSH All Active Problems (Updated 12/13/23 @ 00:05 by [place]) Compression fracture of L1 vertebra (Acute) Orthostatic hypotension (Acute) Dizziness (Acute) Autonomic dysfunction with type 2 diabetes mellitus (Acute) Foot ulcer, left (Acute) Chest pain (Acute) Vitamin B12 deficiency (Acute) Subclinical hypothyroidism (Chronic ~02/2023) Monitor Chronic HFrEF (heart failure with reduced ejection fraction) (Chronic 07/20/18) 2018: LVEF 30-35% at presentation; most recent echo 07/24/2020: LVEF 40-45% Type 2 diabetes mellitus with hyperglycemia, with long-term current use of insulin (Chronic 11/25/15) ASCVD (arteriosclerotic cardiovascular disease) (Chronic 07/28/17) NSTEMI with HFrEF 07/11/2017 s/p MADONNA to mLAD on 07/14/[address] [facility] Obesity (Chronic) Hypomagnesemia (Chronic) Gastroesophageal reflux disease (Chronic) Microalbuminuria (Chronic) Callus of foot (Chronic) Type 2 diabetes mellitus with retinopathy, with long-term current use of insulin (Chronic 10/27/17) Restless leg syndrome (Chronic 10/31/14) Sleep Medicine Obstructive sleep apnea, adult (Chronic 10/31/14) Pt. states he has not been using device 09/01/20 Severe, C-pap, Dr. Almeida continue on CPAP therapy with mask of choice,heated humidification and ramp. pressure should be set at 12 cm/H2o,alternatively auto CPAP 8-14 cm/H2O can be used. (sleep study note cameron Nonproliferative diabetic retinopathy (Chronic) Noncompliance with medication regimen (Chronic 07/06/13) Hyperlipidemia (Chronic 07/06/13) Erectile dysfunction (Chronic 07/06/13) Essential hypertension (Chronic 07/06/13) Depression (Chronic 11/25/11) Sensorineural hearing loss, bilateral (Chronic 11/24/17) Conductive hearing loss in left ear (Acute) Medical History Kidney stones Intermittent gross hematuria Osteomyelitis Diabetic foot ulcer Tubular adenoma of colon (10/18/14) NSTEMI (non-ST elevated myocardial infarction) (07/11/17) 06/2017: S/p MADONNA to mLAD at [facility]; DAPT for a minimum of 1 year Surgical History Lesion of oral mucosa 01/29/[address] Schuster. 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 No dysplasia. PAS stain negative for fungal organisms Colonoscopy - IV Sedation (10/14/14) tubular adenoma Dr. Blancas Cholecystectomy S/P coronary artery stent placement s/p MADONNA to LAD mid 2; Dr. Fercho Eddy, [facility], 07/14/2017 Family History Mother Essential hypertension Father Lung cancer Social History Smoking/Tobacco Use Status: Never Smoking risk assessment performed?: Yes Alcohol Intake: never Drug use: Never Substance use type: does not use Adopted: No Caregiver/Support person: Yes Foster care: No Household members: spouse Housing: house Number of Children: 1 Communication Needs: Hard of Hearing Education Level: high school Do you need help understanding health information?: Never 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 Pets and animals: No Current gender identity: male What is your relationship status?: How often do you talk on the phone with friends or family?: three or more times per week How often do you get together with friends or relatives?: twice per week Do you belong to any clubs or organized social groups?: no Panel score (0-1 are the most socially isolated patients): 2 What type of physical activity do you participate in: walking and other Details: skiing, snowboarding. 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 Do you feel safe at home: Yes Do you feel safe in your relationship?: Yes Discharge Plan Disposition Patient Disposition: Admit to [facility] Condition: Fair Discharge Details Clinical Impression: Autonomic dysfunction with type 2 diabetes mellitus, Dizziness Admit Date/Time: 12/08/23 17:08 Admit Provider: Tim Jeter Attending Provider: Tim Jeter Primary Care Provider: Unknown,Unknown ED Provider: Abelardo Garber Discharge Data Discharge Date/Time-TO BE ENTERED AT DEPARTURE: 12/08/23 19:12 Discharge Physician: Abelardo Garber POCUS Exam (ED) Limited Cardiac Exam DATE OF EXAM: 12/08/23 TIME OF EXAM: 14:46 PROVIDER THAT PERFORMED THE STUDY: Abelardo Garber IS THIS A REPEAT EXAM DURING THIS ENCOUNTER: no REASON FOR EXAM: Syncope VISUALIZED STRUCTURES: Four Chambers, Left atrium, Left ventricle, LVOT, Right atrium, Right ventricle, Aortic valve, Mitral valve, Interventricular septum and IVC VIEW OBTAINED: Apical 4-Chamber, Parasternal long-axis, Parasternal short-axis and Subxiphoid PERTINENT FINDINGS/IMPRESSION: No apparent abnormalities INCIDENTAL FINDINGS: Inferoseptal hypokinesis due to an old myocardial infarction Exam complete Vital Signs & Lab Results Vital Signs Most Recent Vital Signs: Most Recent Vital Signs Temp Pulse Resp BP Pulse Ox 36.4 C L 76 16 119/72 93 12/08/23 07:56 12/08/23 07:56 12/08/23 07:56 12/08/23 07:56 12/08/23 07:56 Point of Care Results Nursing Point of Care Results: 2 Finger Stick Blood Glucose 154 H (70 - 120) 12/12/23 16:31 Lab Results 12/11/23 05:40 12/12/23 06:07 Blood Type / Crossmatch: 2 No Data to Display Complete Blood Count: 2 White Blood Count 8.46 10^3/uL (4.4-10.8) 12/11/23 05:40 Red Blood Count 4.31 10^6/uL (4.36-5.78) L 12/11/23 05:40 Hemoglobin 12.7 g/dL (13.5-17.5) L 12/11/23 05:40 Hematocrit 36.6 % (40.0-50.0) L 12/11/23 05:40 Platelet Count 174 10^3/uL (130-400) 12/11/23 05:40 Complete Metabolic Panel: 2 Sodium 139 mmol/L (136-145) 12/12/23 06:07 Potassium 4.0 mmol/L (3.5-5.1) 12/12/23 06:07 Chloride 104 mmol/L (98-107) 12/12/23 06:07 Carbon Dioxide 24.8 mmol/L (21.0-32.0) 12/12/23 06:07 BUN 19 mg/dL (7-18) H 12/12/23 06:07 Creatinine 1.1 mg/dL (0.70-1.30) 12/12/23 06:07 Est GFR (CKD-EPI 2020) 76.85 (mL/min/1.73m2) 12/12/23 06:07 Magnesium 1.9 mg/dL (1.8-2.4) 12/12/23 06:07 Calcium 9.5 mg/dL (8.5-10.1) 12/12/23 06:07 Albumin 3.6 g/dL (3.4-5.0) 12/08/23 08:17 Glucose 113 mg/dL (74-106) H 12/12/23 06:07 Liver Function Panel: 2 Alanine Aminotransferase (ALT/SGPT) 37 U/L (16-63) 12/08/23 08: 17 Aspartate Amino Transf (AST/SGOT) 22 U/L (15-37) 12/08/23 08:17 Coagulation Panel: 2 INR International Normalized Ratio 1.2 (0.9-1.1) H 12/08/23 08 :17 Prothrombin Time 11.6 sec (9.1-11.1) H 12/08/23 08:17 Cardiac Panel: 2 Troponin I < 50 ng/L (< or =60) 12/08/23 Arterial Blood Gas: 2 No Data to Display Venous Blood Gas: 2 No Data to Display Pancreas Panel: 2 No Data to Display Thyroid Panel: 2 No Data to Display Infectious Disease: 2 No Data to Display Blood Cultures: 2 No Data to Display Toxicology Panel: 2 No Data to Display Vital Signs and Lab Results Vital Signs Most Recent Vital Signs in EMR: Most Recent Vital Signs Temp Pulse Resp BP Pulse Ox 36.4 C L 80 16 127/74 93 12/08/23 07:56 12/08/23 14:27 12/08/23 07:56 12/08/23 14:27 12/08/23 07:56 Lab Results 12/11/23 05:40 12/12/23 06:07 Blood Type / Crossmatch: 2 No Data to Display Complete Blood Count: 2 White Blood Count 8.46 10^3/uL (4.4-10.8) 12/11/23 05:40 Red Blood Count 4.31 10^6/uL (4.36-5.78) L 12/11/23 05:40 Hemoglobin 12.7 g/dL (13.5-17.5) L 12/11/23 05:40 Hematocrit 36.6 % (40.0-50.0) L 12/11/23 05:40 Platelet Count 174 10^3/uL (130-400) 12/11/23 05:40 Complete Metabolic Panel: 2 Sodium 139 mmol/L (136-145) 12/12/23 06:07 Potassium 4.0 mmol/L (3.5-5.1) 12/12/23 06:07 Chloride 104 mmol/L (98-107) 12/12/23 06:07 Carbon Dioxide 24.8 mmol/L (21.0-32.0) 12/12/23 06:07 BUN 19 mg/dL (7-18) H 12/12/23 06:07 Creatinine 1.1 mg/dL (0.70-1.30) 12/12/23 06:07 Est GFR (CKD-EPI 2020) 76.85 (mL/min/1.73m2) 12/12/23 06:07 Magnesium 1.9 mg/dL (1.8-2.4) 12/12/23 06:07 Calcium 9.5 mg/dL (8.5-10.1) 12/12/23 06:07 Albumin 3.6 g/dL (3.4-5.0) 12/08/23 08:17 Glucose 113 mg/dL (74-106) H 12/12/23 06:07 Liver Function Panel: 2 Alanine Aminotransferase (ALT/SGPT) 37 U/L (16-63) 12/08/23 08: 17 Aspartate Amino Transf (AST/SGOT) 22 U/L (15-37) 12/08/23 08:17 Coagulation Panel: 2 INR International Normalized Ratio 1.2 (0.9-1.1) H 12/08/23 08 :17 Prothrombin Time 11.6 sec (9.1-11.1) H 12/08/23 08:17 Cardiac Panel: 2 Troponin I < 50 ng/L (< or =60) 12/08/23 Arterial Blood Gas: 2 No Data to Display Venous Blood Gas: 2 No Data to Display Pancreas Panel: 2 No Data to Display Thyroid Panel: 2 No Data to Display Infectious Disease: 2 No Data to Display Blood Cultures: 2 No Data to Display Toxicology Panel: 2 No Data to Display
[2023-12-08 09:06] LABS: Abs Immature Grans 0.05 10^3/uL (0.0-0.06); Absolute Basophil Count 0.06 10^3/uL (0.0-0.2); Absolute Lymphocyte Count 1.86 10^3/uL (1.2-3.4); Absolute Monocyte Count 0.69 10^3/uL (0.1-0.8); Absolute Neutrophil Count 5.99 10^3/uL (1.2-6.7); Basophils % 0.7; Eosinophils % 1.1; HGB 14.3 g/dL (13.5-17.5); Immature Grans % 0.6; Lymphocytes % 21.3; MCH 29.2 pg (27.0-33.0); MCV 86 fL (80-95); MPV 8.7 fL (8.0-11.0); Monocytes % 7.9; Neutrophils % 68.4; Platelet Count 218 10^3/uL (130-400); RBC 4.89 10^6/uL (4.36-5.78); RDW 14.6 % (11.8-14.1); RDW-SD 45.5 fL; WBC 8.75 10^3/uL (4.4-10.8)
--- NOTE | 2023-12-08 09:07 | DI.RAD_ITS ---
Exam(s) XR HIP RT COMPLETE AP PELVIS EXAM: XR HIP RT COMPLETE AP PELVIS CLINICAL HISTORY: fall and right hip pain. TECHNIQUE: 2D digital imaging was performed. Two views COMPARISON: No exams were available for comparison FINDINGS: BONES: No acute fracture is present. No bony destructive lesion is seen. JOINTS: No dislocation present. Hip joint spaces are maintained. SI joints and pubic symphysis unre markable. SOFT TISSUE: Defied vas deferens. IMPRESSION: No acute abnormality. DATA REPOSITORY: RADIATION DOSE DELIVERED:
[2023-12-08 09:15] LABS: INR 1.2 (0.9-1.1); Prothrombin Time 11.6 sec (9.1-11.1)
[2023-12-08 09:22] LABS: ALT 37 U/L (16-63); AST 22 U/L (15-37); Albumin 3.6 g/dL (3.4-5.0); Alkaline Phosphatase 128 U/L (46-116); Anion Gap 9.7 mmol/L (3-11); BUN 27 mg/dL (7-18); Bilirubin, Total 0.7 mg/dL (0.2-1.0); CO2 23.3 mmol/L (21.0-32.0); CREATININE 1.3 mg/dL (0.70-1.30); Calcium 9.3 mg/dL (8.5-10.1); Chloride 102 mmol/L (98-107); Estimated GFR 62.89 (mL/min/1.73m2); Glucose 178 mg/dL (74-106); Magnesium 1.8 mg/dL (1.8-2.4); Potassium 4.3 mmol/L (3.5-5.1); Sodium 135 mmol/L (136-145); Total Protein 7.7 g/dL (6.4-8.2); Troponin I < 50 ng/L (< or =60)
[2023-12-08] MEDS: Normal Saline 1,000 ML 1000 ML IV (09:22)
--- NOTE | 2023-12-08 10:45 | DI.CT_ITS ---
Exam(s) CT ABDOMEN PELVIS W EXAM: CT ABDOMEN PELVIS W CLINICAL HISTORY: epigastric abdominal pain. TECHNIQUE: Imaging Protocol: Axial computed tomography images with coronal and sagittal reformatted images were created and reviewed CONTRAST MATERIAL: Intravenous: Omnipaque 350 Contrast volume:100 ml Oral: / no COMPARISON: CT RENAL COLIC WO CONTRAST from 11/19/[address] ABDOMEN PELVIS WO from 07/18/[address] ABDOMEN PELVIS W from 10/27/2023 FINDINGS: ABDOMEN and PELVIS: Lung Bases: No acute findings. Liver: Normal density. No measurable mass. Gallbladder and biliary tract: Status post cholecystectomy. No biliary dilatation. Pancreas: Normal density. No abnormal calcifications or inflammatory process. No evidence of mass. Spleen: Upper normal size. Kidneys: Normal size, contour and axis. No radiodense stones. No obstructive uropathy. No suspicious masses seen. The previously noted left ureteral stent has been removed. Renal enhancement now appea rs normal. Tiny nonobstructing stone noted mid to lower left kidney. Adrenal glands: Stable appearance of 2 cm homogeneous right adrenal nodule. It has however increased in size from 2022. MRI could be considered.. Vasculature: Abdominal aorta non-dilated. Soft tissues: Unremarkable. Bladder: Distended. No gross wall thickening. No calculi.No focal mass. Bowel: Duodenal diverticulum again noted. No obstruction. No bowel wall thickening. Appendix normal . Peritoneal cavity: No ascites. No focal collection or mesenteric inflammatory response. Bones: Mild compression of the superior endplate of L1, new since prior exam.. Reproductive organs: Within normal limits. Lymph nodes: Unremarkable. IMPRESSION:: Acute abnormality in the abdomen or pelvis. Mild L1 compression fracture of indeterminate age but new since prior exam. Right adrenal nodule unchanged from October 2023 but increased in size from June 2023. MRI could be considered for further evaluation. RADIATION DOSE DELIVERED: 1,661.05mGy.cm Total DLP DATA REPOSITORY: All CT scans at this facility are submitted to the National Radiology Data Registry (NRDR) Dose Index Registry (DIR) with the [employer] (A[employer]). RADIATION OPTIMIZATION: All CT scans at this facility use at least one of these dose optimization te chniques: automated exposure control; mA and/or kV adjustment per patient size (includes targeted exa ms where dose is matched to clinical indication); or iterative reconstruction.
--- NOTE | 2023-12-08 10:45 | DI.CT_ITS ---
Exam(s) CT HEAD WO EXAM: CT HEAD WO CLINICAL HISTORY: syncope dizziness. TECHNIQUE: Imaging Protocol: Axial computed tomography images with coronal and sagittal reformatted images were created and reviewed COMPARISON: No exams were available for comparison FINDINGS: Ventricles and Extra axial spaces: Normal in size and morphology for the patient's age. Hemorrhage: None. Cerebral parenchyma: No evidence of acute infarct or mass. Midline shift: None. Brainstem/Cerebellum: Normal. Calvarium: Normal. Visualized Paranasal sinuses/Mastoids: Clear. Soft Tissues: Unremarkable. IMPRESSION: No acute intracranial process. RADIATION DOSE DELIVERED: 777.31mGy.cm Total DLP DATA REPOSITORY: All CT scans at this facility are submitted to the National Radiology Data Registry (NRDR) Dose Index Registry (DIR) with the [employer] (ACR). RADIATION OPTIMIZATION: All CT scans at this facility use at least one of these dose optimization te chniques: automated exposure control; mA and/or kV adjustment per patient size (includes targeted exa ms where dose is matched to clinical indication); or iterative reconstruction.
[2023-12-08 11:09] LABS: Bilirubin Negative (Negative); Blood Trace-intact (Negative); Clarity Clear (Clear); Glucose 500 mg/dL (Negative); Ketones Negative (Negative); Leukocyte Esterase Negative (Negative); Nitrite Negative (Negative); Specific Gravity 1.015 (1.005-1.025); Urobilinogen 0.2 mg/dL (Up to 0.2)
[2023-12-08] MEDS: Omnipaque 350 MG/ML 500 ML BTL-Imaging package 100 ML IJ (11:10)
[2023-12-08] MEDS: Normal Saline - Diluent 50 ML VIAL IJ (11:11)
[2023-12-08 11:27] LABS: Bacteria Negative HPF (Negative); C & S Indicated? No; Casts Negative LPF (Negative); Crystals Negative HPF (Negative); Epithelial Cells Rare HPF (Negative); Mucus Negative (Negative); WBC Negative HPF (0-5)
[2023-12-08 12:47] LABS: Troponin I < 50 ng/L (< or =60)
--- NOTE | 2023-12-08 16:40 | PDOC.CMPRO ---
Date of service: 12/08/23 Time of Service: 16:41 Care Management Progress Note Progress Note Text Progress Note Text: CM asked to see patient in the ED by provider. clyde is a 58 year old man with autonomic dysfunction with type 2 diabetes. He has been falling at home more frequently as he gets dizzy. This morning he fell and presented with right hip pain. He did not sustain any fractures however stated that he continues to feel dizzy and lightheaded. When CM met with Clyde he stated that this dizziness and falling has been happening for the last couple of months. CM suggested a PT evaluation be done but PT was unable to complete the evaluation as Clyde became orthostatic with SBP in the mid seventies. 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 CM also sent a referral to [facility] for [facility]ing and community case management.
--- NOTE | 2023-12-08 16:48 | PT.INIE ---
PT Notes Visit Reasons: [place]-Fall Physical Therapy Initial Evaluation Date: 12/08/2023 Referring Doctor: Clyde Garber MD PT Orders: PT CONSULT: Safety Consult for D/C Precautions: Fall. Standard. Activity as tolerated. Patient Profile/Admitting Diagnosis: Ganesh is a 58-year-old male patient with past medical history significant for chronic HFrEF referred to PT for safe discharge recommendations. Patient came in today due to a fall and reports 9/10 pain in the R hip and R flank area. PMHX: All Active Problems (Updated 10/31/23 @ 11:07 by Dc Balderas MD) Nausea & vomiting (Acute) Foot ulcer, left (Acute) Chest pain (Acute) Vitamin B12 deficiency (Acute) Subclinical hypothyroidism (Chronic ~02/2023) Monitor Chronic HFrEF (heart failure with reduced ejection fraction) (Chronic 07/20/18) 2018: LVEF 30-35% at presentation; most recent echo 07/24/2020: LVEF 40-45%Type 2 diabetes mellitus with hyperglycemia, with long-term current use of insulin (Chronic 11/25/15) ASCVD (arteriosclerotic cardiovascular disease) (Chronic 07/28/17) NSTEMI with HFrEF 07/11/2017 [place]AD[place]NA [place] [facility] [place]esity (Chronic) Hypomagnesemia (Chronic) Gastroesophageal reflux disease (Chronic) Microalbuminuria (Chronic) Callus of foot (Chronic) Type 2 diabetes mellitus with retinopathy, with long-term current use of insulin (Chronic 10/27/17) Restless leg syndrome (Chronic 10/31/14) Sleep Medicine Obstructive sleep apnea, adult (Chronic 10/31/14) Pt. states he has not been using device 09/01/20 Severe, C-pap, Dr. Almeida continue on CPAP therapy with mask of choice,heated humidification and ramp. pressure should be set at 12 cm/H2o,alternatively auto CPAP 8-14 cm/H2O can be used. (sleep study note cameron Nonproliferative diabetic retinopathy (Chronic) Noncompliance with medication regimen (Chronic 07/06/13) Hyperlipidemia (Chronic 07/06/13) Erectile dysfunction (Chronic 07/06/13) Essential hypertension (Chronic 07/06/13) Depression (Chronic 11/25/11) Sensorineural hearing loss, bilateral (Chronic 11/24/17) Conductive hearing loss in left ear (Acute) Medical History (Updated 10/31/23 @ 11:07 by Dc Balderas MD) Kidney stones Intermittent gross hematuria Osteomyelitis Diabetic foot ulcer Tubular adenoma of colon (10/18/14) NSTEMI (non-ST elevated myocardial infarction) (07/11/17) 06/2017: [place] [facility] [place] DAPT for a minimum of 1 year Surgical History Lesion of oral mucosa 01/29/[address] Schuster. 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 No dysplasia. PAS stain negative for fungal organisms Colonoscopy - IV Sedation (10/14/14) tubular adenoma Dr. Blancas Cholecystectomy S/P coronary artery stent placement s/p MADONNA to LAD mid 2; Dr. Fercho Eddy, [facility], 07/14/2017 Social History/Home Situation: Lives in a private home. Uses no assistive device with mobility performance. Equipment Owned/DME: None Subjective: Patient stated that he has not eaten since arrival at the ED early this morning. Feels very ill and unable to walk stating that he is extremely dizzy. Complains of severe pain in the R hip and flank area. Adds that he has fallen about 3-4 times at home in the past 2 weeks due to dizziness and weakness. [place] unsafe and unable to tolerate upright positioning due to worsening dizziness. Objective: General Observation: Resting in bed. Appears anxious about moving. Mental Status: Alert and oriented as to person, place, time, and purpose. Able to pay attention, focus, and respond appropriately. Pain: 9/10 in the R hip and flank area Vital Signs: Orthostatics: supine 145/82 mmHg, sitting 81/50 mmHg, and standing 75/46 mmHg. ROM: Right Upper Extremity: Shoulder Flexion WFL. Shoulder abduction WFL. Elbow flexion WFL. Wrist flexion WFL. Functional opening and closing of hand WFL. Left Upper Extremity: Shoulder Flexion WFL. Shoulder abduction WFL. Elbow flexion WFL. Wrist flexion WFL. Functional opening and closing of hand WFL. Right Lower Extremity: Hip flexion lacks the last 50% of AROM. Hip abduction lacks the last 50% of AROM. Knee flexion 10 degrees to 90 degrees. Ankle dorsiflexion WFL. Ankle plantarflexion WFL. Left Lower Extremity: Hip flexion WFL. Hip abduction WFL. Knee flexion WFL. Ankle dorsiflexion WFL. Ankle plantarflexion WFL. Strength: Right Upper Extremity: Shoulder flexors 4-/5. Shoulder abductors 4-/5. Elbow flexors 4-/5. Elbow extensors 4-/5. Line Appliance Assembler strong. Left Upper Extremity: Shoulder flexors 4-/5. Shoulder abductors 4-/5. Elbow flexors 4-/5. Elbow extensors 4-/5. Line Appliance Assembler strong. Right Lower Extremity: Hip flexors 3-/5. Hip abductors 3-/5. Knee flexors 3-/5. Knee extensors 3-/5. Ankle dorsiflexors 4-/5. Ankle plantarflexors 4-/5. Left Lower Extremity: Hip flexors 3+/5. Hip abductors 3+/5. Knee flexors 3+/5. Knee extensors 3+/5. Ankle dorsiflexors 4-/5. Ankle plantarflexors 4-/5. Bed Mobility/Transfers: Moderate cueing provided for use of B hands as needed for support, movement sequence, Ad management, and and posture to reduce fall risk and minimize pain report. Rolling moderate assist Supine to sit moderate assist Sit to supine moderate assist Sit to stand minimal assist of 2 Stand to sit minimal assist of 2 Bed to reclining chair DEFERRED, patient unable to tolerate vertical positioning Reclining chair to bed DEFERRED, patient unable to tolerate vertical positioning Gait: DEFERRED. Patient unable to tolerate vertical positioning Balance: Static Sitting: Fair Dynamic Sitting: Poor Static Standing: Unable Dynamic Standing: Unable Special Tests: Mobility Limitations Standardized Measure [facility] AM-PAC 6 clicks Basic Mobility Inpatient Short Form: Raw Score: 9 CMS Score: 81% deficit Informed Consent/Education: Patient was instructed in purpose of PT consult and plan of care. Agreeable to proceed with established PT POC to achieve personal goals. ASSESSMENT: Patient was seen at the ED per referral of Dr. Abelardo Garber for mobility assessment and safe discharge recommendation. Patient was found to have generalized weakness, 9/10 pain in the R hip and R flank, and severe lightheadedness. Further mobility assessment was deferred as risk for falls was high related to hypotensive epsisode. Patient is not safe to go home as risk for repeated falls and injury from BP variation is high. Initial evaluation will be completed tomorrow morning. Patient presents with clinical signs and symptoms consistent with current/admitting diagnoses that have resulted to mobility limitations, gait instability, generalized weakness, and overall ADL decline as demonstrated by the following impairment level findings: 1. Decreased strength to B UE/LE major muscle groups 2. Impaired sitting/standing balance 3. Impaired activity tolerance 4. Limitation of joint range of motion in R hip and knee 5. Orthostatic hypotension 6. R hip and flank pain 9/10 Impairments are contributing to the following functional limitations: 1. Decline in bed mobility skills 2. Decline in transfer skills 3. Difficulty with ambulation without assistive device and physical assistance 4. Increased completion time for mobility ADL performance 5. Increased risk for falls 6. Difficulty with managing steps alone safely Patient is [place] 48064 moderate complexity based on the following: History: 58-year-old male with past medical history as indicated above Examination: Demonstrable impairment in strength, balance, and mobility level with underlying impairments and functional limitations as exhibited above as well as deficit score of 81% utilizing the [facility] Mobility Inpatient Short Form Presentation: Evolving Decision Makin moderate complexity Goals: Goals X1 week 1. Supine-Sit independent 2. Sit-Supine independent 3. Sit-Stand independent 4. Stand-Sit independent with FWW 5. Bed-Chair independent with FWW 6. Chair-Bed independent with FWW 7. Independent gait on level surface with use of FWW for at least 300 feet without report of pain nor dyspnea 8. Independent stair negotiation while holding onto B rails for at least 5 steps without report of pain nor dyspnea 9. Independent with home exercise program 10. Good static and dynamic standing balance/tolerance Plan of Care/Treatment Plan: PT to follow same plan of care for patient should admission to medical surgical unit is decided by ED MD/hospitalist to achieve above functional goals. 1-2x/day, 7 days/week x 1 week. Plan of care has been reviewed with the DEVELOPMENT DIRECTOR providing the service under Physical Therapy direction. Initiate Physical Therapy intervention for pain management as needed, strengthening, bed mobility, transfers, gait, stairs, balance training, and use of assistive device. DISCHARGE RECOMMENDATIONS: [] Home with no services [] [] Home with services [specify] [] Home with outpatient PT [] [] SNF for continued rehabilitation [] [] [facility] [] [] SNF versus LTC based on ability to participate and progress [] [X] HH PT vs SNF based on progress towards goals TREATMENT CODE/TIME: 03117 x 20 minutes for 1 unit, 29779 x 10 minutes beginning at 16:14 PM. Thank you for the opportunity to participate in the care of this patient. Janet Lopez PT, DPT, CLT [facility] [place], [place]
--- NOTE | 2023-12-08 17:08 | HPE_ITS ---
Date of service: 12/08/23 Time of Service: 17:08 Assessment and Plan Assessment and plan (1) Autonomic dysfunction with type 2 diabetes mellitus: Status: Acute Assessment and plan: admitted to med/surg receiving IV fluids apply TEDS, consider midodrine fall precautions pharmacy review of meds (2) Type 2 diabetes mellitus with hyperglycemia, with long-term current use of insulin: Status: Chronic Assessment and plan: diabetic diet with blood sugar checks ac/hs and sliding scale coverage as needed. A1C was 7.0 in june 2023 (3) Chronic HFrEF (heart failure with reduced ejection fraction): Status: Chronic Assessment and plan: stable continue home medications echo from 2019 Conclusion Normal left ventricular wall thickness and chamber size. Estimated ejection fraction is 40 to 45%. The inferior and posterior guzman are hypocontractile. Findings are similar to prior echocardiogram from 2018. LV function has improved compared to 2017 Normal right ventricular size and function Both atria are normal in size Minimally sclerotic aortic valve, without stenosis or regurgitation Structurally normal mitral, tricuspid, and pulmonic valves Trace mitral and tricuspid regurgitation No valvular vegetations identified (4) Subclinical hypothyroidism: Status: Chronic Assessment and plan: TSH 2.86 in aug 2023 (5) ASCVD (arteriosclerotic cardiovascular disease): Status: Chronic Assessment and plan: stable, continue home medications discussed with Dr Jeter History of Present Illness History of Present Illness Chief Complaint: dizziness Narrative: Presents to the emergency department with complaints of multiple falls at home associated with dizziness. Workup in the emergency department concerning for autonomic dysfunction. He received IV fluids unable to be safely really ambulated hospitalist services was contacted and he will be admitted to the medical surgical unit under observation. He denies any recent illness, fever or c/o other than dizziness. no injury with falls. Review of Systems All systems reviewed & are unremarkable except as noted in HPI and below PFSH All Active Problems (Updated 12/08/23 @ 14:45 by Abelardo Garber MD) Dizziness (Acute) Autonomic dysfunction with type 2 diabetes mellitus (Acute) Foot ulcer, left (Acute) Chest pain (Acute) Vitamin B12 deficiency (Acute) Subclinical hypothyroidism (Chronic ~02/2023) Monitor Chronic HFrEF (heart failure with reduced ejection fraction) (Chronic 07/20/18) 2018: LVEF 30-35% at presentation; most recent echo 07/24/2020: LVEF 40-45% Type 2 diabetes mellitus with hyperglycemia, with long-term current use of insulin (Chronic 11/25/15) ASCVD (arteriosclerotic cardiovascular disease) (Chronic 07/28/17) NSTEMI with HFrEF 07/11/2017 s/p MADONNA to mLAD on 07/14/2017 at [facility] Obesity (Chronic) Hypomagnesemia (Chronic) Gastroesophageal reflux disease (Chronic) Microalbuminuria (Chronic) Callus of foot (Chronic) Type 2 diabetes mellitus with retinopathy, with long-term current use of insulin (Chronic 10/27/17) Restless leg syndrome (Chronic 10/31/14) Sleep Medicine Obstructive sleep apnea, adult (Chronic 10/31/14) Pt. states he has not been using device 09/01/20 Severe, C-pap, Dr. Almeida continue on CPAP therapy with mask of choice,heated humidification and ramp. pressure should be set at 12 cm/H2o,alternatively auto CPAP 8-14 cm/H2O can be used. (sleep study note cameron Nonproliferative diabetic retinopathy (Chronic) Noncompliance with medication regimen (Chronic 07/06/13) Hyperlipidemia (Chronic 07/06/13) Erectile dysfunction (Chronic 07/06/13) Essential hypertension (Chronic 07/06/13) Depression (Chronic 11/25/11) Sensorineural hearing loss, bilateral (Chronic 11/24/17) Conductive hearing loss in left ear (Acute) Medical History Kidney stones Intermittent gross hematuria Osteomyelitis Diabetic foot ulcer Tubular adenoma of colon (10/18/14) NSTEMI (non-ST elevated myocardial infarction) (07/11/17) 06/2017: S/p MADONNA to mLAD at [facility]; DAPT for a minimum of 1 year Surgical History Lesion of oral mucosa 01/29/[address] Schuster. 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 No dysplasia. PAS stain negative for fungal organisms Colonoscopy - IV Sedation (10/14/14) tubular adenoma Dr. Blancas Cholecystectomy S/P coronary artery stent placement s/p MADONNA to LAD mid 2; Dr. Fercho Eddy, [facility], 07/14/2017 Family History Mother Essential hypertension Father Lung cancer Social History Smoking/Tobacco Use Status: Never Smoking risk assessment performed?: Yes Alcohol Intake: never Drug use: Never Substance use type: does not use Adopted: No Caregiver/Support person: Yes Foster care: No Household members: spouse Housing: house Number of Children: 1 Communication Needs: Hard of Hearing Education Level: high school Do you need help understanding health information?: Never 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 Pets and animals: No Current gender identity: male What is your relationship status?: How often do you talk on the phone with friends or family?: three or more times per week How often do you get together with friends or relatives?: twice per week Do you belong to any clubs or organized social groups?: no Panel score (0-1 are the most socially isolated patients): 2 What type of physical activity do you participate in: walking and other Details: skiing, snowboarding. 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: No Do you feel safe at home: Yes Do you feel safe in your relationship?: Yes Meds Allergies and Home Medications Allergies Allergy/AdvReac Type Severity Reaction Status Date / Time bee venom protein (honey bee) Allergy Severe Swelling/Ed Verified 12/08/23 08:03 capri Penicillins Allergy Unknown Rash Verified 12/08/23 08:03 shellfish derived Allergy Unknown Rash; Verified 12/08/23 08:03 swelling Home Medications Medication Instructions Recorded Confirmed Type blood sugar diagnostic (Blood #400 ea 06/22/19 10/27/23 Rx Glucose Test strips) triamcinolone acetonide 0.5 % 1 applic topical .BID-QID #15 grams 10/19/19 12/08/23 Rx topical cream lancets #400 ea 04/24/20 10/27/23 Rx alcohol swabs (Alcohol Pads) 1 pad topical QID Prior to 08/08/20 12/08/23 Rx administering insulin for diabetes #400 ea nitroglycerin 0.4 mg sublingual 0.4 mg sublingual Q5M PRN chest 06/08/21 12/08/23 Rx tablet pain #30 tab-caps flash glucose scanning reader #1 ea 11/11/21 10/27/23 Rx (FreeStyle Flako 2 Everly) aspirin 81 mg chewable tablet 81 mg PO DAILY #90 tab-caps 03/31/22 12/08/23 Rx sertraline 100 mg tablet (Zoloft) 200 mg (2 x 100 mg) PO DAILY #180 03/31/22 12/08/23 Rx tab-caps clopidogrel 75 mg tablet See Rx Instructions .Route 07/06/22 12/08/23 Rx .COMPLEX #90 tabs bupropion HCl 150 mg 24 hr tablet, 300 mg PO QAM 08/23/22 12/08/23 History extended release insulin aspart U-100 100 unit/mL See Rx Instructions subcut AC #45 01/19/23 12/08/23 Rx (3 mL) subcutaneous pen (Novolog mL FlexPen U-100 Insulin aspart) metoprolol succinate 50 mg 50 mg PO DAILY #90 tab-caps 02/10/23 12/08/23 Rx tablet,extended release 24 hr pen needle, diabetic 31 gauge x #400 ea 02/25/23 10/27/23 Rx /16 (BD Ultra-Fine Short Pen Needle) cyanocobalamin (vitamin B-12) 1,000 mcg PO DAILY #90 tab-caps 06/30/23 12/08/23 Rx 1,000 mcg tablet semaglutide 0.25 mg or 0.5 mg (2 0.25 - 0.5 mg (0.368 - 0.736 mL) 06/30/23 12/08/23 Rx mg/3 mL) subcutaneous pen injector subcut QWEEK #10 mL (Ozempic) flash glucose sensor (FreeStyle #2 ea 07/28/23 10/27/23 Rx Flako 2 Sensor kit) empagliflozin 25 mg tablet See Rx Instructions .Route 09/26/23 12/08/23 Rx (Jardiance) .COMPLEX #90 tabs lisinopril 2.5 mg tablet 2.5 mg PO DAILY #90 tab-caps 09/26/23 12/08/23 Rx metformin 1,000 mg tablet 1,000 mg PO BID diabetes #180 09/26/23 12/08/23 Rx tab-caps pantoprazole 40 mg tablet,delayed See Rx Instructions .Route 09/26/23 12/08/23 Rx release .COMPLEX #90 tabs spironolactone 25 mg tablet 12.5 mg (1/2 x 25 mg) PO DAILY #45 09/26/23 12/08/23 Rx tab-caps insulin degludec 100 unit/mL (3 55 unit subcut QHS Dx: E11.9 to 10/03/23 12/08/23 History mL) subcutaneous pen (Tresiba maintain HbA1c less than 7% FlexTouch U-100 insulin) magnesium oxide 400 mg (241.3 mg 400 mg PO DAILY #90 tab-caps 10/25/23 12/08/23 Rx magnesium) tablet isosorbide mononitrate 30 mg See Rx Instructions .Route 11/24/23 12/08/23 Rx tablet,extended release 24 hr .COMPLEX #28 tabs rosuvastatin 40 mg tablet (Crestor) 40 mg PO HS #90 tab-caps 11/24/23 12/08/23 Rx Exam Narrative Exam Narrative: frail appearing, chronically ill older than stated age head atraumatic, normocephalic neck supple, full ROM with no cspine tenderness CV: RRR, well perfused, good peripheral pulses resp: even and unlabored, dim breath sounds in the bases skin dry, no rashes noted ext: no edema, full range of motion. neuro: awake and oriented x3, no focal deficits. Results Labs 12/09/23 06:14 12/10/23 06:06 Labs: Laboratory Results - last 24 hr 12/08/23 12/08/23 12/08/23 08:17 10:55 12:12 WBC 8.75 RBC 4.89 Hgb 14.3 Hct 42.0 MCV 86 MCH 29.2 MCHC 34.0 RDW 14.6 H Plt Count 218 MPV 8.7 Immature Gran % 0.6 Neutrophils % 68.4 Lymphocytes % 21.3 Monocytes % 7.9 Eosinophils % 1.1 Basophils % 0.7 Nucleated RBC % 0.0 Absolute Neutrophils 5.99 Absolute Lymphocytes 1.86 Absolute Monocytes 0.69 Absolute Eosinophils 0.10 Absolute Basophils 0.06 PT 11.6 H INR 1.2 H Sodium 135 L Potassium 4.3 Chloride 102 Carbon Dioxide 23.3 Anion Gap 9.7 BUN 27 H Creatinine 1.3 Est GFR (CKD-EPI 2020) 62.89 Glucose 178 H Calcium 9.3 Magnesium 1.8 Total Bilirubin 0.7 AST 22 ALT 37 Alkaline Phosphatase 128 H Troponin I < 50 < 50 Total Protein 7.7 Albumin 3.6 Urine Color Yellow Urine Clarity Clear Urine pH 5.0 Ur Specific [place] 1.015 Urine Protein Negative Urine Ketones Negative Urine Blood Trace-intact H Urine Nitrite Negative Urine Bilirubin Negative Urine Urobilinogen 0.2 Ur Leukocyte Esterase Negative Urine RBC 3-5 H Urine WBC Negative Ur Epithelial Cells Rare Urine Crystals Negative Urine Bacteria Negative Urine Casts Negative Urine Mucus Negative Ur Culture Indicated? No Urine Glucose 500 H Last Vital Signs Temp 36.4 C L 12/08/23 07:56 Pulse 80 12/08/23 14:27 Resp 16 12/08/23 07:56 BP 127/74 12/08/23 14:27 Pulse Ox 93 12/08/23 07:56 Time Spent Time spent with Patient: 40-54 minutes Time was spent: preparing to see the patient(eg.review tests), obtaining and/or reviewing separately otained hiistory, ordering medications,tests, procedures, indepentently interpreting results and counseling the patient
[2023-12-08] MEDS: Acetaminophen 325 MG TAB PO (19:49)
[2023-12-08] MEDS: Rosuvastatin 20 MG TAB 40 MG PO (20:15)
[2023-12-08] MEDS: Normal Saline Flush 10 ML SYR IVP ×2 (20:16→23:10)
[2023-12-08] MEDS: Docusate Sodium 100 MG CAP PO (21:58)
[2023-12-08] MEDS: Normal Saline 1,000 ML 100 ML IV (23:10)
[2023-12-09] MEDS: Acetaminophen 325 MG TAB PO ×3 (02:42→23:33)
[2023-12-09 06:30] LABS: HCT 38.6 % (40.0-50.0); HGB 13.3 g/dL (13.5-17.5); MCH 29.7 pg (27.0-33.0); MCHC 34.5 % (32.0-36.0); MCV 86 fL (80-95); MPV 8.6 fL (8.0-11.0); Platelet Count 165 10^3/uL (130-400); RBC 4.48 10^6/uL (4.36-5.78); RDW 14.6 % (11.8-14.1); RDW-SD 45.7 fL; WBC 8.73 10^3/uL (4.4-10.8)
[2023-12-09 06:42] LABS: Anion Gap 11.5 mmol/L (3-11); BUN 23 mg/dL (7-18); CO2 22.5 mmol/L (21.0-32.0); CREATININE 1.1 mg/dL (0.70-1.30); Chloride 104 mmol/L (98-107); Estimated GFR 76.85 (mL/min/1.73m2); Glucose 133 mg/dL (74-106); Magnesium 1.7 mg/dL (1.8-2.4); Sodium 138 mmol/L (136-145)
[2023-12-09 07:36] VITALS: BP 131/91; PULSE 77; RESP 17; TEMP 36.2; O2SAT 98
[2023-12-09] MEDS: MAGNESIUM SULFATE 2 GM/50 ML BAG IVPB (08:30)
[2023-12-09] MEDS: Cyanocobalamin 100 MCG TABLET 1000 MCG PO (08:32)
[2023-12-09] MEDS: buPROPion-XL 150 MG TABCR 300 MG PO (08:34)
[2023-12-09] MEDS: Aspirin 81 MG CHEW PO (08:35)
[2023-12-09] MEDS: Sertraline 100 MG TAB 200 MG PO (08:35)
[2023-12-09] MEDS: Isosorbide Mononitrate 30 MG TABCR PO (08:35)
[2023-12-09] MEDS: Lisinopril 2.5 MG TAB PO (08:36)
[2023-12-09] MEDS: Metoprolol CR 50 MG TABCR PO (08:36)
[2023-12-09] MEDS: Pantoprazole 40 MG TABCR PO (08:36)
[2023-12-09] MEDS: Normal Saline Flush 10 ML SYR IVP (08:37)
[2023-12-09] MEDS: Empaglifozin 25 MG TAB PO (08:39)
[2023-12-09] MEDS: Insulin Aspart 300 UNITS/3 ML PEN SC ×3 (08:42→17:16)
[2023-12-09] MEDS: Normal Saline 1,000 ML 100 ML IV ×2 (08:44→18:32)
--- NOTE | 2023-12-09 09:34 | PDOC.CMIN ---
Date of service: 12/09/23 Time of Service: 09:34 Care Management Initial Assmt Initial Assessment REASON FOR HOSPITALIZATION:: orthostatic hypotension PREVIOUS FUNCTIONAL STATUS/SOCIAL/FAMILY SUPPORTS:: Ben lives in a first floor apartment in [facility] with his . He has one son who lives in [place]. Ben states that they are close and talk regularly on the phone. Ben is independent with ADLs however with the orthostasis, has had frequent falls. A PT evaluation has been requested. CURRENT FUNCTIONAL STATUS:: Ben was sitting up in bed when CM met with him. He was pleasant and engaged well with CM. Ben stated that he continues to feel lightheaded when he sits up and then tries to stand from a sitting position. PT attempted to do an evaluation yesterday, however ended the session as Ben was unable to tolerate vertical positioning. Again today, when they attempted to treat him, he was unable to participate due to lightheadedness. ADVANCE DIRECTIVES:: On file, Candy RICKETTS Has patient been provided with info about the portal/API?: Yes Did the patient sign up for the portal?: No CODE STATUS:: Full Code INSURANCE COVERAGE / FINANCIAL ISSUES:: [employer] Health Plans [facility] CURRENT HOME/COMMUNITY SERVICES/EQUIPMENT:: has a cane PRIMARY CARE PHYSICIAN:: Oscar Weinstein POTENTIAL DISCHARGE NEEDS:: home health services, follow up appointments PATIENT/FAMILY EDUCATION NEEDS:: Review of discharge instructions, activity, limitations, precautions, follow up plan, discuss Ask Me Three TRANSPORTATION:: via private vehicle with family PLAN:: Anticipate Ben will be discharged home with new home health services for nursing, PT and HAND CEMENTER. He will follow up with his community providers and plan of care and will transport with family. CM will follow and continue to support discharge needs. PFSH All Active Problems (Updated 12/08/23 @ 14:45 by Abelardo Garber MD) Dizziness (Acute) Autonomic dysfunction with type 2 diabetes mellitus (Acute) Foot ulcer, left (Acute) Chest pain (Acute) Vitamin B12 deficiency (Acute) Subclinical hypothyroidism (Chronic ~02/2023) Monitor Chronic HFrEF (heart failure with reduced ejection fraction) (Chronic 07/20/18) 2018: LVEF 30-35% at presentation; most recent echo 07/24/2020: LVEF 40-45% Type 2 diabetes mellitus with hyperglycemia, with long-term current use of insulin (Chronic 11/25/15) ASCVD (arteriosclerotic cardiovascular disease) (Chronic 07/28/17) NSTEMI with HFrEF 07/11/2017 s/p MADONNA to mLAD on 07/14/2017 at [facility] Obesity (Chronic) Hypomagnesemia (Chronic) Gastroesophageal reflux disease (Chronic) Microalbuminuria (Chronic) Callus of foot (Chronic) Type 2 diabetes mellitus with retinopathy, with long-term current use of insulin (Chronic 10/27/17) Restless leg syndrome (Chronic 10/31/14) Sleep Medicine Obstructive sleep apnea, adult (Chronic 10/31/14) Pt. states he has not been using device 09/01/20 Severe, C-pap, Dr. Almeida continue on CPAP therapy with mask of choice,heated humidification and ramp. pressure should be set at 12 cm/H2o,alternatively auto CPAP 8-14 cm/H2O can be used. (sleep study note cameron Nonproliferative diabetic retinopathy (Chronic) Noncompliance with medication regimen (Chronic 07/06/13) Hyperlipidemia (Chronic 07/06/13) Erectile dysfunction (Chronic 07/06/13) Essential hypertension (Chronic 07/06/13) Depression (Chronic 11/25/11) Sensorineural hearing loss, bilateral (Chronic 11/24/17) Conductive hearing loss in left ear (Acute) Medical History Kidney stones Intermittent gross hematuria Osteomyelitis Diabetic foot ulcer Tubular adenoma of colon (10/18/14) NSTEMI (non-ST elevated myocardial infarction) (07/11/17) 06/2017: S/p MADONNA to mLAD at [facility]; DAPT for a minimum of 1 year Surgical History Lesion of oral mucosa 01/29/[address] Schuster. 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 No dysplasia. PAS stain negative for fungal organisms Colonoscopy - IV Sedation (10/14/14) tubular adenoma Dr. Blancas Cholecystectomy S/P coronary artery stent placement s/p MADONNA to LAD mid 2; Dr. Fercho Eddy, [facility], 07/14/2017 Family History Mother Essential hypertension Father Lung cancer Social History Smoking/Tobacco Use Status: Never Smoking risk assessment performed?: Yes Alcohol Intake: never Drug use: Never Substance use type: does not use Adopted: No Caregiver/Support person: Yes Foster care: No Household members: spouse Housing: house Number of Children: 1 Communication Needs: Hard of Hearing Education Level: high school Do you need help understanding health information?: Never 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 Pets and animals: No Current gender identity: male What is your relationship status?: How often do you talk on the phone with friends or family?: three or more times per week How often do you get together with friends or relatives?: twice per week Do you belong to any clubs or organized social groups?: no Panel score (0-1 are the most socially isolated patients): 2 What type of physical activity do you participate in: walking and other Details: skiing, snowboarding. 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: No Do you feel safe at home: Yes Do you feel safe in your relationship?: Yes SDOH(Care Management) Screening Will the Patient Participate in the Screening?: Yes Do you worry about having a steady place to live?: no Problems where you live: no known problems In the past 12 months, have you had to go without electric, gas, oil or water in your home?: no Have you or anyone in your house had to go without enough food to eat?: no Has lack of transportation kept you from medical appointments or from doing things needed for daily living?: no Has anyone in your support network made you feel unsafe for any reason?: no
[2023-12-09 09:36] VITALS: BP 121/76; BP 87/56; BP 92/59; PULSE 75; PULSE 87; PULSE 88
[2023-12-09 11:13] VITALS: BP 120/74; PULSE 79; RESP 17; TEMP 36.2; O2SAT 96
--- NOTE | 2023-12-09 14:47 | PT.INTREAT ---
Date of service: 12/09/23 Time of Service: 14:20 PT Notes Visit Reasons: Orthostatic hypotension Inpatient Physical Therapy Treatment Note [facility] Date: 12/09/23 PRECAUTIONS: Standard, activity as tolerated. EXTREME FALL RISK. ORTHOSTATIC HYPOTENSIVE. SUBJECTIVE: Patient reports not feeling great, has back pain from the fall. Disinclined to work with therapy. RN Pantera alerted, patient given Tylenol. Agreeable to work with therapy an hour later despite reporting unchanged pain level. OBJECTIVE: Supine in bed, agreeable to therapy.? PAIN: significant back pain VITALS: monitored by nursing staff. ? BED MOBILITY/TRANSFERS? Rolling L/R: independent Supine-sit: independent ? Sit-supine: independent ? Sit-stand: CGA to FWW ? Stand-sit: CGA from FWW? Bed-Chair: CGA with FWW ? Chair-bed: CGA with FWW Provided skilled cues and instruction on performance and technique throughout. ? Therapeutic Exercises ([id number]): Direct one-on-one instruction in therapeutic exercises to develop strength, endurance, range of motion and flexibility. Ambulation ? Assistive Device: FWW? Weight bearing: full Assist: CGA, close wheelchair follow? Distance:? 12 feet? Deviation: Gait largely unremarkable, patient reports significant dizziness which worsens with ambulation. At 12 feet, patient asks to sit, stating that's enough of that for today. ? Provided skilled instruction in proper exercise performance Provided skilled manual cues to facilitate proper muscle recruitment and/or form. ASSESSMENT:? Patient still experiencing significant orthostatic hypotensive symptoms. PLAN: Progress ambulation to patient tolerance. TREATMENT CODE/TIME: 17 minutes beginning at 14:20
[2023-12-09 15:34] VITALS: BP 114/72; PULSE 80; RESP 18; TEMP 36.4; O2SAT 95
--- NOTE | 2023-12-09 17:19 | CHAPLAIN ---
Ben and I remembered each other from previous admissions. He hasn't been able to work with PT because of light-headedness. Ebn was a member of the [facility], which has closed. He's in touch with his by phone.
[2023-12-09] MEDS: Rosuvastatin 20 MG TAB 40 MG PO (19:50)
[2023-12-09 19:53] VITALS: BP 118/76; PULSE 82; RESP 18; TEMP 36.6; O2SAT 98
[2023-12-09] MEDS: Midodrine 2.5 MG TAB PO (20:00)
[2023-12-09] MEDS: Insulin Glargine 300 UNITS/3 ML PEN 44 UNITS SC (22:00)
[2023-12-09 23:35] VITALS: BP 129/82; BP 89/56; BP 94/59; PULSE 80; PULSE 81; PULSE 84; RESP 18; TEMP 37.3; O2SAT 96
[2023-12-10] VITALS (7 sets, daily range): BP systolic 101–146; BP diastolic 64–96; PULSE 73–80; RESP 16–18; TEMP 36–36.9; O2SAT 94–96
[2023-12-10] MEDS: Normal Saline 1,000 ML 100 ML IV (05:19)
[2023-12-10 06:54] LABS: Anion Gap 10.7 mmol/L (3-11); BUN 19 mg/dL (7-18); CO2 24.3 mmol/L (21.0-32.0); Calcium 9.3 mg/dL (8.5-10.1); Chloride 104 mmol/L (98-107); Estimated GFR 86.16 (mL/min/1.73m2); Glucose 113 mg/dL (74-106); Magnesium 1.8 mg/dL (1.8-2.4); Potassium 3.7 mmol/L (3.5-5.1); Sodium 139 mmol/L (136-145)
[2023-12-10] MEDS: Pantoprazole 40 MG TABCR PO (07:55)
[2023-12-10] MEDS: Midodrine 2.5 MG TAB PO (08:42)
[2023-12-10] MEDS: Isosorbide Mononitrate 30 MG TABCR PO (08:42)
[2023-12-10] MEDS: Empaglifozin 25 MG TAB PO (08:42)
[2023-12-10] MEDS: Lisinopril 2.5 MG TAB PO (08:42)
[2023-12-10] MEDS: buPROPion-XL 150 MG TABCR 300 MG PO (08:42)
[2023-12-10] MEDS: Aspirin 81 MG CHEW PO (08:42)
[2023-12-10] MEDS: Metoprolol CR 50 MG TABCR PO (08:42)
[2023-12-10] MEDS: Sertraline 100 MG TAB 200 MG PO (08:42)
[2023-12-10] MEDS: Cyanocobalamin 100 MCG TABLET 1000 MCG PO (08:42)
[2023-12-10] MEDS: Normal Saline Flush 10 ML SYR IVP ×2 (08:43→19:20)
--- NOTE | 2023-12-10 09:20 | PT.INTREAT ---
Date of service: 12/10/23 Time of Service: 08:45 PT Notes Visit Reasons: Orthostatic hypotension Inpatient Physical Therapy Treatment [facility] Date: 12/10/2023 PRECAUTIONS: Standard, activity as tolerated. EXTREME FALL RISK. ORTHOSTATIC HYPOTENSIVE. SUBJECTIVE: Would like to try sitting in the recliner, but does not want to walk far. Continues to get dizzy when going from supine to sitting. Indicated he is not dizzy when in supine.Dizzy while sitting in recliner. Nurse Brooklyn was in room with patient when I left him sitting in recliner with call morelos. Advised to let us know if he would like to return to bed. Discussed doing ankle pumps and moving legs while sitting or lying in bed, to keep muscles working while in hospital. OBJECTIVE: ? PAIN: Continued back pain, but not complaining of this being worse with ambulation. VITALS: ? Pre-Treatment: Supine BP 128/81 with HR of 78, sitting BP 103/64 with HR of 77, standing BP 101/72 with HR of 84 ? Post ambulation to recliner : Sitting 126/76 with HR of 74 continuing to complain of feeling dizzy. Therapeutic Activities ([id number]): Direct one-on-one instruction in dynamic activities to improve functional performance. ? BED MOBILITY/TRANSFERS? Rolling L/R: Able to roll to right independently Supine-sit: With HOB at 45 degrees with SBA ? Sit-stand: SBA? Stand-sit: SBA? Provided skilled cues and instruction on performance and technique throughout. ? GAIT? Assistive Device: FWW ? Weight bearing: Full Assist: CGA and assist with IV ? Distance:? 10ft ? Deviation: Slow, controlled gait pattern, with decreased step length ? ASSESSMENT:?Good control with ambulation, but did display concern with falling due to dizziness. PLAN: Continue with PT's POC progressing ambulation to patient's tolerance. TREATMENT CODE/TIME: [id number], 8:45 to 9:05 (20')
[2023-12-10] MEDS: Insulin Aspart 300 UNITS/3 ML PEN SC ×2 (12:39→17:16)
[2023-12-10] MEDS: Midodrine 2.5 MG TAB 5 MG PO ×2 (13:17→19:20)
--- NOTE | 2023-12-10 13:35 | W.PM.PROGNOT ---
Date of Service Date of service: 12/10/23 Time of Service: 13:35 Assessment and Plan Assessment and plan (1) Orthostatic hypotension: Status: Acute Assessment and plan: Increase midodrine to 5 mg PO TID. Consider adjusting cardiac meds. Continue TEDs. The patient is no longer clinically dehydrated - IVF have been discontinued. Continue to monitor orthostatic BPs. (2) Autonomic dysfunction with type 2 diabetes mellitus: Status: Acute Assessment and plan: As above (3) Compression fracture of L1 vertebra: Status: Acute Assessment and plan: Traumatic. Treat with scheduled tylenol, methocarbamol, low dose gabapentin, lidocaine patches, prn tramadol. PT consulted. (4) Type 2 diabetes mellitus with hyperglycemia, with long-term current use of insulin: Status: Chronic Assessment and plan: No change in tx. (5) Chronic HFrEF (heart failure with reduced ejection fraction): Status: Chronic Assessment and plan: per Echo in 07/2020, LVEF was 40-45%, improved from 2017. Given orthostasis and dizziness, consider repeating the echo. (6) Subclinical hypothyroidism: Status: Chronic Assessment and plan: Follow up as outpatient (7) ASCVD (arteriosclerotic cardiovascular disease): Status: Chronic Assessment and plan: No change in tx at this time (8) DVT prophylaxis: Status: Acute Assessment and plan: SC enoxaparin (9) Discharge planning issues: Status: Acute Assessment and plan: Full code Continues to require hospitalization. Subjective Subjective Interval history since last seen: Mr Tang continues to report dizziness on standing. He remains orthostatic. Denies CP, SOB, n/v. Does report L-sided lower back pain since falling. Denies numbness, tingling, weakness to LLE. Able to ambulate/bear weight, but has only been able to walk to the door of his room and back. Exam Narrative Exam Narrative: General: A pleasant male who appears tired and uncomfortable, A&Ox3, NAD HEENT: EOMI, MMM Heart: RRR, no m/r/g Lungs: CTAB anteriorly Back: Tenderness to palpation left lower back Abdomen: soft, nontender, nondistended Extremities: no edema BLEs, able to move BLEs Objective Last Vital Signs Temp 36.1 C L 12/10/23 11:06 Pulse 78 12/10/23 11:06 Resp 16 12/10/23 11:06 BP 131/79 12/10/23 11:06 Pulse Ox 95 12/10/23 11:06 Laboratory Results - last 24 hr 12/10/23 06:06 Sodium 139 Potassium 3.7 Chloride 104 Carbon Dioxide 24.3 Anion Gap 10.7 BUN 19 H Creatinine 1.0 Est GFR (CKD-EPI 2020) 86.16 Glucose 113 H Calcium 9.3 Magnesium 1.8 Objective Narrative Objective Narrative: CT abdomen/pelvis: Mild L1 compression fracture of indeterminate age but new since prior exam. Right adrenal nodule unchanged from October 2023 but increased in size from June 2023. MRI could be considered for further evaluation. Time Spent with Patient Time Spent with Patient: 35-49 minutes Time was spent: preparing to see the patient(eg.review tests), obtaining and/or reviewing separately otained hiistory, ordering medications,tests, procedures, referring, communicating with other health intensive care medicine specialist, indepentently interpreting results, counseling the patient and care coordination
[2023-12-10] MEDS: Gabapentin 100 MG CAP PO ×2 (14:21→19:20)
[2023-12-10] MEDS: Enoxaparin 40 MG/0.4 ML SYR SC (14:21)
[2023-12-10] MEDS: Acetaminophen 325 MG TAB 650 MG PO ×2 (14:22→19:19)
[2023-12-10] MEDS: Lidocaine 5% Patch 1 PATCH TP (17:47)
[2023-12-10] MEDS: Rosuvastatin 20 MG TAB 40 MG PO (19:19)
[2023-12-10] MEDS: Insulin Glargine 300 UNITS/3 ML PEN 44 UNITS SC (21:27)
[2023-12-11] VITALS (7 sets, daily range): BP systolic 80–128; BP diastolic 56–91; PULSE 71–85; RESP 16; TEMP 36.1–37; O2SAT 95
[2023-12-11 06:58] LABS: Abs Immature Grans 0.06 10^3/uL (0.0-0.06); Absolute Basophil Count 0.06 10^3/uL (0.0-0.2); Absolute Eosinophil Count 0.27 10^3/uL (0.0-0.7); Absolute Lymphocyte Count 2.03 10^3/uL (1.2-3.4); Absolute Monocyte Count 0.71 10^3/uL (0.1-0.8); Absolute Neutrophil Count 5.33 10^3/uL (1.2-6.7); Basophils % 0.7; Eosinophils % 3.2; HCT 36.6 % (40.0-50.0); HGB 12.7 g/dL (13.5-17.5); Immature Grans % 0.7; MCH 29.5 pg (27.0-33.0); MCHC 34.7 % (32.0-36.0); MCV 85 fL (80-95); MPV 8.7 fL (8.0-11.0); Monocytes % 8.4; Platelet Count 174 10^3/uL (130-400); RBC 4.31 10^6/uL (4.36-5.78); RDW 14.4 % (11.8-14.1); RDW-SD 44.6 fL; WBC 8.46 10^3/uL (4.4-10.8)
[2023-12-11 07:11] LABS: Anion Gap 10.3 mmol/L (3-11); BUN 14 mg/dL (7-18); CO2 24.7 mmol/L (21.0-32.0); Calcium 9.2 mg/dL (8.5-10.1); Chloride 103 mmol/L (98-107); Estimated GFR 86.16 (mL/min/1.73m2); Glucose 67 mg/dL (74-106); Magnesium 1.6 mg/dL (1.8-2.4); Potassium 3.4 mmol/L (3.5-5.1); Sodium 138 mmol/L (136-145)
[2023-12-11 07:38] LABS: Vitamin D 25 Total 15.1 ng/mL (30-100)
[2023-12-11] MEDS: Normal Saline Flush 10 ML SYR IVP ×2 (07:45→21:08)
[2023-12-11] MEDS: buPROPion-XL 150 MG TABCR 300 MG PO (07:46)
[2023-12-11] MEDS: Cyanocobalamin 500 MCG TAB 1000 MCG PO (07:46)
[2023-12-11] MEDS: Empaglifozin 25 MG TAB PO (07:46)
[2023-12-11] MEDS: Sertraline 100 MG TAB 200 MG PO (07:46)
[2023-12-11] MEDS: Acetaminophen 325 MG TAB 650 MG PO ×3 (07:47→21:09)
[2023-12-11] MEDS: Gabapentin 100 MG CAP PO ×3 (07:47→21:10)
[2023-12-11] MEDS: Isosorbide Mononitrate 30 MG TABCR PO (07:47)
[2023-12-11] MEDS: Lisinopril 2.5 MG TAB PO (07:47)
[2023-12-11] MEDS: Metoprolol CR 50 MG TABCR PO (07:48)
[2023-12-11] MEDS: Pantoprazole 40 MG TABCR PO (07:48)
[2023-12-11] MEDS: Midodrine 2.5 MG TAB 5 MG PO ×2 (07:48→14:33)
[2023-12-11] MEDS: Aspirin 81 MG CHEW PO (08:21)
[2023-12-11] MEDS: Potassium Chloride 20 MEQ TABCR 40 MEQ PO (08:30)
[2023-12-11] MEDS: Cholecalciferol (Vitamin D3) 1,000 UNIT TAB 2000 UNITS PO (08:30)
[2023-12-11] MEDS: MAGNESIUM SULFATE 2 GM/50 ML BAG IVPB (08:30)
[2023-12-11] MEDS: Methocarbamol 750 MG TAB PO (09:09)
--- NOTE | 2023-12-11 11:41 | PT.INTREAT ---
Date of service: 12/11/23 Time of Service: 09:50 PT Notes Visit Reasons: Orthostatic hypotension Inpatient Physical Therapy Treatment Note [facility] Date: 12/11/2023 PRECAUTIONS: Standard, activity as tolerated. EXTREME FALL RISK. ORTHOSTATIC HYPOTENSIVE. SUBJECTIVE: Stated he is doing better with the dizziness today, but back continues to really bother him. Indicated to me later in morning that he was able to sit in recliner without dizziness. OBJECTIVE: ? PAIN: Back pain reported at 9 out of 10 when I first arrived to room but later in morning stated it was now more like 5 out of 10 after getting back to bed from sitting in recliner. VITALS: ?Orthostatic pressures: supine 152/89 with HR of 68b/m sitting 105/68 with HR of 68b/m standing 98/59 with HR of 68b/m sitting in recliner post ambulation 109/79 with HR of 72 Therapeutic Activities ([id number]): Direct one-on-one instruction in dynamic activities to improve functional performance. ? BED MOBILITY/TRANSFERS? Rolling L/R: SBA Supine-sit: SBA with HOB at approximately 40 degrees ? Sit-supine: SBA ? Sit-stand: SBA with verbal cueing? Stand-sit: SBA with verbal cueing ? [facility]. Able to stand for approximately 3 minutes to get cleaned up post use of commode. Provided skilled cues and instruction on performance and technique throughout. ? GAIT? Assistive Device: FFW ? Weight bearing: Full Assist: CGA-SBA, and nurse Day following with W/C? Distance:? 80ft into hallway, after use of commode.? Deviation: Slow, but well controlled gait pattern.? Agreeable to sitting up in recliner for short period post session, with pillow behind back. Nursing staff to get back to bed when ready. ? ASSESSMENT:? Patient doing much better with moving with FWW and not complaining of dizziness as much with ambulation. Appeared more stable and confident with movement today. Also, much more talkative. Telling stories of past adventures skiing, ect. PLAN: Continue to focus on improved ADL function as per supervising PT's POC. TREATMENT CODE/TIME: [id number], 9:50 to 10:20 am (30')
[2023-12-11] MEDS: Insulin Aspart 300 UNITS/3 ML PEN SC ×3 (11:52→18:08)
[2023-12-11] MEDS: Enoxaparin 40 MG/0.4 ML SYR SC (14:32)
--- NOTE | 2023-12-11 16:52 | PGE_ITS ---
Date of Service Date of service: 12/11/23 Time of Service: 16:52 Assessment and Plan Assessment and plan (1) Orthostatic hypotension: Status: Acute Assessment and plan: Increase midodrine to 10 mg PO TID. D/c lisinopril. Continue TEDs. The patient is no longer clinically dehydrated - IVF have been discontinued. Continue to monitor orthostatic BPs. (2) Autonomic dysfunction with type 2 diabetes mellitus: Status: Acute Assessment and plan: As above (3) Compression fracture of L1 vertebra: Status: Acute Assessment and plan: Traumatic. Continue scheduled tylenol, methocarbamol, low dose gabapentin, lidocaine patches, prn tramadol. PT consulted. (4) Type 2 diabetes mellitus with hyperglycemia, with long-term current use of insulin: Status: Chronic Assessment and plan: Fasting blood sugar of 67 this am. Decrease lantus. (5) Chronic HFrEF (heart failure with reduced ejection fraction): Status: Chronic Assessment and plan: per Echo in 07/2020, LVEF was 40-45%, improved from 2017. Given orthostasis and dizziness, repeat echocardiogram (6) Subclinical hypothyroidism: Status: Chronic Assessment and plan: Follow up as outpatient (7) ASCVD (arteriosclerotic cardiovascular disease): Status: Chronic Assessment and plan: No change in tx at this time (8) DVT prophylaxis: Status: Acute Assessment and plan: SC enoxaparin (9) Discharge planning issues: Status: Acute Assessment and plan: Full code Continues to require hospitalization. Possible discharge home tomorrow. Discussed with [id number] Corrine ([phone]). Subjective Subjective Interval history since last seen: Mr Tang says he is doing alright when I ask him about his back pain. He is not dizzy today, though on orthostatic vital signs his systolic BP did drop 40 points with change of position to SBP of 80. HE denies CP, SOB, n/v. Exam Narrative Exam Narrative: General: A pleasant male who appears more comfortable today, A&Ox3, NAD HEENT: EOMI, MMM Heart: RRR, no m/r/g Lungs: CTAB Abdomen: soft, nontender, nondistended Extremities: no edema BLEs, able to move BLEs Objective Last Vital Signs Temp 36.1 C L 12/11/23 14:55 Pulse 77 01/21/24 15:57 Resp 16 12/11/23 14:55 BP 80/62 L 12/11/23 15:57 Pulse Ox 95 12/11/23 14:55 Laboratory Results - last 24 hr 12/11/23 05:40 WBC 8.46 RBC 4.31 L Hgb 12.7 L Hct 36.6 L MCV 85 MCH 29.5 MCHC 34.7 RDW 14.4 H Plt Count 174 MPV 8.7 Immature Gran % 0.7 Neutrophils % 63.0 Lymphocytes % 24.0 Monocytes % 8.4 Eosinophils % 3.2 Basophils % 0.7 Nucleated RBC % 0.0 Absolute Neutrophils 5.33 Absolute Lymphocytes 2.03 Absolute Monocytes 0.71 Absolute Eosinophils 0.27 Absolute Basophils 0.06 Sodium 138 Potassium 3.4 L Chloride 103 Carbon Dioxide 24.7 Anion Gap 10.3 BUN 14 Creatinine 1.0 Est GFR (CKD-EPI 2020) 86.16 Glucose 67 L Calcium 9.2 Magnesium 1.6 L 25-OH Vitamin D Total 15.1 L Time Spent with Patient Time Spent with Patient: 35-49 minutes Time was spent: preparing to see the patient(eg.review tests), obtaining and/or reviewing separately otained hiistory, ordering medications,tests, procedures, referring, communicating with other health behavioral health care manager, indepentently interpreting results, counseling the patient and care coordination
[2023-12-11] MEDS: Lidocaine 5% Patch 1 PATCH TP (18:14)
[2023-12-11] MEDS: Insulin Glargine 300 UNITS/3 ML PEN 38 UNITS SC (21:07)
[2023-12-11] MEDS: Midodrine 2.5 MG TAB 10 MG PO (21:09)
[2023-12-11] MEDS: Rosuvastatin 20 MG TAB 40 MG PO (21:10)
[2023-12-12 07:17] LABS: Anion Gap 10.2 mmol/L (3-11); BUN 19 mg/dL (7-18); CO2 24.8 mmol/L (21.0-32.0); CREATININE 1.1 mg/dL (0.70-1.30); Calcium 9.5 mg/dL (8.5-10.1); Chloride 104 mmol/L (98-107); Estimated GFR 76.85 (mL/min/1.73m2); Glucose 113 mg/dL (74-106); Magnesium 1.9 mg/dL (1.8-2.4); Sodium 139 mmol/L (136-145)
[2023-12-12 07:26] VITALS: BP 117/81; PULSE 77; TEMP 36.6; O2SAT 99
--- NOTE | 2023-12-12 08:00 | DI.US_ITS ---
APPROVED REPORT EXAM: Comprehensive 2D, Doppler, and color-flow Echocardiogram Patient Location: In-Patient Room/Bed: 205 Professor Of Law: Peter Urias RDCS (AE) Indications: orthostatic hypotension, CHF Conclusion Technically challenging study 1. Normal chamber sizes. 2. Mild to moderate LVH. Normal systolic function, EF 50-55%. Normal RV function. 3. Anatomically normal valves. No significant regurgitation or stenosis. 4. Small to trace pericardial effusion without hemodynamic compromiser. Wall motion Left Ventricle The left ventricle is grossly normal size. Left ventricular systolic function is borderline. Unable t o assess LV wall thickness due to vertical orientation of ventricle. Appears mild to moderate concent howei left ventricular hypertrophy. There is no ventricular septal defect visualized. LVEF is 52%. Right Ventricle The right ventricle is normal size. Right ventricular systolic function is grossly normal. Atria The left atrium size is normal. The right atrium size is normal. The interatrial septum is intact wit h no evidence for an atrial septal defect. Aortic Valve The aortic valve is normal in structure. Aortic valve is probably trileaflet. There is no aortic valv ular stenosis. No aortic regurgitation is present. Mitral Valve The mitral valve is normal in structure. No evidence of mitral valve stenosis. Trace mitral regurgita tion. Tricuspid Valve The tricuspid valve is normal in structure. There is no tricuspid valve stenosis. Trace tricuspid reg urgitation. Unable to assess PA pressure. Pulmonic Valve The pulmonary valve is normal in structure. There is no pulmonic valvular stenosis. There is no pulmo mary valvular regurgitation. Great Vessels The aortic root is normal in size. The ascending aorta is normal in size. Aortic arch is not well vis ualized. IVC is normal in size and collapses >50% with inspiration. Pericardium There is no pericardial effusion. 2D Dimensions Ao Root d 3.14 cm M: 3.1 - 3.7 Ao Asc Diam d 3.16 cm M: 2.6 - 3.4 M-Mode TAPSE 1.55 cm (M/F) >1.7 Auto EF LV EDV A4C 117.4 mL LV EDV A2C 88.6 mL LV EDV BP 107.3 mL LV ESV A4C 56.1 mL LV ESV A2C 42.8 mL LV ESV BP 50.9 mL LVEF(%) A4C 52.2 % LVEF(%) A2C 51.6 % LVEF(%) BP 52.5 % LV SV A4C 61.3 ml LV SV A2C 45.7 ml LV SV BP 56.4 ml LV CO A4C 4.6 L/min LV CO A2C 3.4 L/min LV CO BP 4.0 L/min HR A4C 74.51 BPM HR A2C 75.16 BPM LV EDV Index (BP) LA Volume LA Length A4C 6.0 cm LA Length A2C 5.2 cm LA Area A4C s 15.86 cm2 LA Area A2C s 12.94 cm2 LA Vol A4C A-L 35.80 mL LA Vol A2C A-L 27.36 mL LA Vol Biplane A-L 33.5 mL LA Vol/BSA A4C A-L LA Vol/BSA A2C A-L LA Vol/BSA BP A-L 15.1 mL/m2 LA Vol A4C MOD 33.9 mL LA Vol A2C MOD 25.8 mL LA Vol BP MOD 30.9 mL RA Volume RA Area A4C 9.4 cm2 RA ESV A4C (A-L) 16.6mL RA Vol/BSA A4C A-L RA Length A4C 4.5 cm RA ESV A4C (MOD) 16.0mL LV Diastology MV E' medial 0.058 (>0.07 m/s) MV E Vmax 0.50 (0.4-1.3 m/s) MV E/E' MED 8.68 (<14) MV A Vmax 0.75 (0.4-1.3 m/s) MV E' lateral 0.079 (>0.1 m/s) E/A Ratio 0.7 MV E/E' LAT 6.34 (<14) MV E' Average 0.069 m/s MV E/E'(average) 7.33 Aortic Valve AoV Vmax 1.03 m/s LVOT Vmax 0.72 m/s AoV Peak Grad 4.2 mmHg LVOT Peak Grad 2.1 mmHg AoV Area (Vmax) 2.23 cm2 LVOT VTI 0.145 m AoV VTI 0.212 m LVOT Mean Grad 1.1 mmHg AoV Mean Antony. 0.73 m/s LVOT SV 45.95 mL AoV Mean Grad 2.4 mmHg LVOT Diam s 2.00 cm AoV Area (VTI) 2.17 cm2 Velocity Ratio 0.70 Mitral Valve MV DT 242 (160-240 msec) Pulmonary Valve PV Vmax 0.78 (0.5-1.5 m/s) RVOT Vmax 0.68 m/s PV Peak Grad 2.5 mmHg RVOT Peak Gr. 1.9 mmHg PV Mean Antony 0.56 m/s RVOT VTI 0.129 m PV Mean Grad 1.4 mmHg RVOT Mean Gr. 1.0 mmHg
[2023-12-12] MEDS: Midodrine 2.5 MG TAB 10 MG PO ×2 (08:01→14:22)
[2023-12-12] MEDS: Acetaminophen 325 MG TAB 650 MG PO ×2 (08:02→14:21)
[2023-12-12] MEDS: buPROPion-XL 150 MG TABCR 300 MG PO (08:02)
[2023-12-12] MEDS: Metoprolol CR 50 MG TABCR PO (08:03)
[2023-12-12] MEDS: Pantoprazole 40 MG TABCR PO (08:03)
[2023-12-12] MEDS: Empaglifozin 25 MG TAB PO (08:03)
[2023-12-12] MEDS: Gabapentin 100 MG CAP PO ×2 (08:04→14:22)
[2023-12-12] MEDS: Sertraline 100 MG TAB 200 MG PO (08:04)
[2023-12-12] MEDS: Isosorbide Mononitrate 30 MG TABCR PO (08:04)
[2023-12-12] MEDS: Cyanocobalamin 500 MCG TAB 1000 MCG PO (08:05)
[2023-12-12] MEDS: Aspirin 81 MG CHEW PO (08:05)
[2023-12-12] MEDS: Cholecalciferol (Vitamin D3) 1,000 UNIT TAB 2000 UNITS PO (08:05)
[2023-12-12] MEDS: Normal Saline Flush 10 ML SYR IVP (08:06)
[2023-12-12 08:09] VITALS: BP 120/80; BP 146/92; BP 97/63; PULSE 61; PULSE 71; PULSE 92
--- NOTE | 2023-12-12 09:20 | PDOC.CMPRO ---
Date of service: 12/12/23 Time of Service: 09:21 Care Management Progress Note Progress Note Text Progress Note Text: S/O: A: Edward is a 58 year old man admitted on 12/09/23 with orthostatic hypotension P:Anticipate Edward will be discharged home with new home health services for nursing, PT and [employer]. He will follow up with his community providers and plan of care and will transport with family. CM will follow and continue to support discharge needs.
[2023-12-12] MEDS: Insulin Aspart 300 UNITS/3 ML PEN SC ×3 (09:37→12:43)
[2023-12-12 10:54] VITALS: BP 133/88; PULSE 78
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
--- NOTE | 2023-12-12 13:27 | W.PM.DS.N ---
Date of service: 12/12/23 Time of Service: 13:27 DS: Diagnosis Discharge Diagnosis (1) Orthostatic hypotension: Status: Acute (2) Autonomic dysfunction with type 2 diabetes mellitus: Status: Acute (3) Compression fracture of L1 vertebra: Status: Acute (4) Type 2 diabetes mellitus with hyperglycemia, with long-term current use of insulin: Status: Chronic (5) Chronic HFrEF (heart failure with reduced ejection fraction): Status: Chronic (6) Subclinical hypothyroidism: Status: Chronic (7) ASCVD (arteriosclerotic cardiovascular disease): Status: Chronic Discharge Plan Disposition Patient Disposition: Home W/Home Health Services Condition: Improving Discharge Details Reason For Visit: Orthostatic hypotension Admit Date/Time: 12/08/23 17:08 Admit Provider: Tim Jeter Attending Provider: Tim Jeter Primary Care Provider: Unknown,Unknown Hospital Course Hospital Course: Presents to the emergency department with complaints of multiple falls at home associated with dizziness. He was complaining of some mild right hip pain but imaging did not show any acute fracture. Workup in the emergency department notable for significant orthostatic hypotension. He received IV fluids unable to be safely really ambulated as he continued to remain symptomatic. Hospitalist services was contacted and he will be admitted to the medical surgical unit under observation. He continued to receive IV fluids but remained orthostatic. He was started on midodrine 2.5 mg 3 times daily but his symptoms still persisted dose titrated up to 10 mg 3 times daily with ongoing drop in blood pressure when standing. His lisinopril was placed on hold. Now he denies any dizziness with position change. He has been safely really ambulated. Plan is to discharge to home with home health services. Medically he is stable and ready for discharge he will be discharged by private vehicle Discharge discussed with Dr. Yoon Home Meds and New Rx's Prescriptions: New midodrine 10 mg tablet 10 mg PO TID Qty: 90 0RF Rx Instructions: do not give last dose of day after 6PM or within 4 hrs of bedtime Continued metoprolol succinate 50 mg tablet extended release 24 hr 50 mg PO DAILY Qty: 90 3RF Ozempic 0.25 mg or 0.5 mg (2 mg/3 mL) pen injector 0.25 - 0.5 mg subcut QWEEK Qty: 10 3RF Rx Instructions: Take 0.25 mg once weekly for 4 weeks then increase to 0.5 mg weekly thereafter cyanocobalamin (vitamin B-12) 1,000 mcg tablet 1,000 mcg PO DAILY Qty: 90 3RF triamcinolone acetonide 0.5 % cream 1 applic TP .BID-QID Qty: 15 0RF Rx Instructions: Apply thin film to affected area(s) two-four times daily until resolution (DME) lancets [facility] [place] See Rx Instructions .ROUTE .MEDSUPPLY Qty: 400 3RF Rx Instructions: As directed to check blood glucose four times daily. On insulin. Dispense covered brand. bupropion HCl 150 mg tablet extended release 24 hr 300 mg PO QAM Rx Instructions: Dose increased 07/2022 (DME) pen needle, diabetic [BD Ultra-Fine Short Pen Needle] 31 gauge x 5/16 needle See Rx Instructions .ROUTE .COMPLEX Qty: 400 3RF Dose Instruction: USE ONCE DAILY TO ADMINISTER LANTUS Rx Instructions: Use as directed to administer insulin 4 times daily. insulin degludec [Tresiba FlexTouch U-100] 100 unit/mL (3 mL) insulin pen 55 unit subcut QHS (DME) Blood Glucose Test Strip See Rx Instructions .ROUTE .MEDSUPPLY Qty: 400 3RF Rx Instructions: As directed to check blood glucose QID. On insulin. Dispense covered brand. alcohol swabs [Alcohol Pads] Pads, Medicated 1 pad topical QID Qty: 400 3RF nitroglycerin 0.4 mg tablet, sublingual 0.4 mg SL Q5M MDD 3 doses PRN (Reason: chest pain) Qty: 30 0RF Rx Instructions: Take 0.4 mg every 5 minutes up to 3 doses; seek emergent medical care if no relief (DME) FreeStyle Flako [address] [place] [facility] [place] See Rx Instructions .ROUTE .MEDSUPPLY Qty: 1 0RF Rx Instructions: As directed aspirin 81 mg tablet,chewable 81 mg PO DAILY Qty: 90 3RF Hold Instructions: Home Medication placed on hold at Doctor's office sertraline [Zoloft] 100 mg tablet 200 mg PO DAILY Qty: 180 3RF clopidogrel 75 mg tablet See Rx Instructions .ROUTE .COMPLEX Qty: 90 0RF Hold Instructions: Home Medication placed on hold at Doctor's office Dose Instruction: TAKE 1 TABLET BY MOUTH DAILY Patient Comments: Pt. states his PCP IS aware he has been off this medication for 2 weeks Rx Instructions: TAKE 1 TABLET BY MOUTH DAILY insulin aspart U-100 [Novolog FlexPen U-100 Insulin] 100 unit/mL (3 mL) insulin pen See Rx Instructions subcut AC Qty: 45 3RF Rx Instructions: 12-16 units per sliding scale subcut before meals; (DME) FreeStyle Flako 2 Sensor Kit See Rx Instructions .ROUTE .COMPLEX Qty: 2 0RF Dose Instruction: TO MAINTAIN HBA1C LESS THAN 7%; DIRECTED Rx Instructions: TO MAINTAIN HBA1C LESS THAN 7%; DIRECTED Jardiance 25 mg tablet See Rx Instructions .ROUTE .COMPLEX Qty: 90 3RF Dose Instruction: TAKE 1 TABLET BY MOUTH DAILY Rx Instructions: TAKE 1 TABLET BY MOUTH DAILY spironolactone 25 mg tablet 12.5 mg PO DAILY Qty: 45 3RF metformin 1,000 mg tablet 1,000 mg PO BID Qty: 180 3RF Rx Instructions: pantoprazole 40 mg tablet,delayed release (DR/EC) See Rx Instructions .ROUTE .COMPLEX Qty: 90 3RF Dose Instruction: TAKE 1 TABLET BY MOUTH EVERY MORNING AT LEAST 30 MINUTES BEFORE FIRST MEAL Rx Instructions: TAKE 1 TABLET BY MOUTH EVERY MORNING AT LEAST 30 MINUTES BEFORE FIRST MEAL magnesium oxide 400 mg (241.3 mg magnesium) tablet 400 mg PO DAILY Qty: 90 3RF isosorbide mononitrate 30 mg tablet extended release 24 hr See Rx Instructions .ROUTE .COMPLEX Qty: 28 11RF Dose Instruction: TAKE 1 TABLET BY MOUTH DAILY Rx Instructions: TAKE 1 TABLET BY MOUTH DAILY rosuvastatin [Crestor] 40 mg tablet 40 mg PO HS Qty: 90 3RF Rx Instructions: FOR CHOLESTEROL & HEART PROTECTION Discontinued lisinopril 2.5 mg tablet 2.5 mg PO DAILY Qty: 90 3RF Discharge Instructions Instructions: Hypotension (DC), Dizziness (ED) Referrals: Oscar Weinstein DO [OSTEOPATHIC DOCTOR] - Activity:: Activity as Tolerated Equipment/Supplies:: No Equipment Needed Diet:: As Tolerated Discharge Orders Discharge Orders: Discharge Order (Routine); Ordered 12/12/23 Ordered By: Yessy Vizcarra DS: Summary Time Spent with Patient providing and/or coordinating discharge services: Greater than 30 minutes Status at Discharge Functional status at discharge: uses cane/walker Overall status at discharge: patient is progressing back to baseline Mental Status: mental status grossly normal Speech and Movement: speech and movement normal Mood: congruent mood Affect: normal affect Quality:SDOH Health Related Social Needs: No Data to Display Exam Narrative Exam Narrative: frail appearing, chronically ill older than stated age head atraumatic, normocephalic neck supple, full ROM with no cspine tenderness CV: RRR, well perfused, good peripheral pulses resp: even and unlabored, dim breath sounds in the bases skin dry, no rashes noted ext: no edema, full range of motion. neuro: awake and oriented x3, no focal deficits. Psych Mental Status: mental status grossly normal Speech and Movement: speech and movement normal Mood: congruent mood Affect: normal affect DS: Data Vitals/I&O Vitals and I&O: Vital Signs Temperature 36.6 C 12/12/23 07:26 Temperature Source Tympanic 12/12/23 07:26 Pulse 78 12/12/23 10:54 Pulse Rhythm Regular 12/12/23 08:09 Respiratory Rate 16 12/11/23 19:25 Respiratory Effort Normal, Non-Labored 12/12/23 08:09 Respiratory Depth Normal 12/12/23 08:09 Respiratory Pattern Normal 12/12/23 08:09 Blood Pressure 133/88 12/12/23 10:54 Pulse Oximetry 99 12/12/23 07:26 Oxygen Delivery Method Room Air 12/12/23 07:26 Oxygen Flow Rate 0 12/12/23 07:26 Pain Level 6 12/12/23 08:09 Comment Pt asleep 12/11/23 23:33 Intake & Output 12/11/23 12/12/23 12/12/23 23:59 11:59 23:59 Intake Total Output Total 1200 / 1900 1000 / 1000 Balance -1200 / -1540 -990 / -990 Intake: IV Output: Urine 1200 / 1900 1000 / 1000 Other: Urine Color Straw Yellow Urine Appearance Clear Clear Urine Odor Normal None Stool Characteristics Formed Hard Brown Voiding Methods Urinal Urinal Data Completed and Pending Labs on day of discharge: Labs from last 24 hours 12/12/23 06:07 Sodium 139 Potassium 4.0 Chloride 104 Carbon Dioxide 24.8 Anion Gap 10.2 BUN 19 H Creatinine 1.1 Est GFR (CKD-EPI 2020) 76.85 Glucose 113 H Calcium 9.5 Magnesium 1.9 PFSH All Active Problems (Updated 12/10/23 @ 13:46 by Ivory Yoon MD) Discharge planning issues (Acute) DVT prophylaxis (Acute) Compression fracture of L1 vertebra (Acute) Orthostatic hypotension (Acute) Dizziness (Acute) Autonomic dysfunction with type 2 diabetes mellitus (Acute) Foot ulcer, left (Acute) Chest pain (Acute) Vitamin B12 deficiency (Acute) Subclinical hypothyroidism (Chronic ~02/2023) Monitor Chronic HFrEF (heart failure with reduced ejection fraction) (Chronic 07/20/18) 2018: LVEF 30-35% at presentation; most recent echo 07/24/2020: LVEF 40-45% Type 2 diabetes mellitus with hyperglycemia, with long-term current use of insulin (Chronic 11/25/15) ASCVD (arteriosclerotic cardiovascular disease) (Chronic 07/28/17) NSTEMI with HFrEF 07/11/2017 s/p MADONNA to mLAD on 07/14/2017 at [facility] Obesity (Chronic) Hypomagnesemia (Chronic) Gastroesophageal reflux disease (Chronic) Microalbuminuria (Chronic) Callus of foot (Chronic) Type 2 diabetes mellitus with retinopathy, with long-term current use of insulin (Chronic 10/27/17) Restless leg syndrome (Chronic 10/31/14) Sleep Medicine Obstructive sleep apnea, adult (Chronic 10/31/14) Pt. states he has not been using device 09/01/20 Severe, C-pap, Dr. Almeida continue on CPAP therapy with mask of choice,heated humidification and ramp. pressure should be set at 12 cm/H2o,alternatively auto CPAP 8-14 cm/H2O can be used. (sleep study note cameron Nonproliferative diabetic retinopathy (Chronic) Noncompliance with medication regimen (Chronic 07/06/13) Hyperlipidemia (Chronic 07/06/13) Erectile dysfunction (Chronic 07/06/13) Essential hypertension (Chronic 07/06/13) Depression (Chronic 11/25/11) Sensorineural hearing loss, bilateral (Chronic 11/24/17) Conductive hearing loss in left ear (Acute) Medical History Kidney stones Intermittent gross hematuria Osteomyelitis Diabetic foot ulcer Tubular adenoma of colon (10/18/14) NSTEMI (non-ST elevated myocardial infarction) (07/11/17) 06/2017: S/p MADONNA to mLAD at [facility]; DAPT for a minimum of 1 year Surgical History Lesion of oral mucosa 01/29/[address] Schuster. 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 No dysplasia. PAS stain negative for fungal organisms Colonoscopy - IV Sedation (10/14/14) tubular adenoma Dr. Blancas Cholecystectomy S/P coronary artery stent placement s/p MADONNA to LAD mid 2; Dr. 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 four horse hitch driver: No Do you feel safe at home: Yes Do you feel safe in your relationship?: Yes Time Spent with Patient Time Spent with Patient: 45-69 minutes Time was spent: preparing to see the patient(eg.review tests), obtaining and/or reviewing separately otained hiistory, ordering medications,tests, procedures, indepentently interpreting results, counseling the patient and care coordination
--- NOTE | 2023-12-12 13:39 | PDOC.HHF2F_ITS ---
Home Health Referral Home Health Orders Clinical synopsis of why skilled professionals are needed: frail at risk male. medication oversight with medication changes, vital sign monitoring Medical diagnosis necessitation home health referral: orthostatic hypotension Registered Nurse: Check all that apply Instruct on new or changed medication(s)/assess compliance: Ordered Assess for exacerbation of medical condition, instruct patient/caregivers on signs and symptoms to report for early detection: Ordered Physical Therapist: Check all that apply Increase strength & endurance for safe mobility at home: Ordered To design/establish home maintenance program: Ordered Fall reduction therapy program for patient with history of frequent falls: Ordered Home safety evaluation and teaching/gait training including stair management (if applicable): Ordered Occupational Therapist: Evaluate and treat for patient unable to perform ADL/IADL/self-care: Ordered Upper extremity strengthening, range and motion: Ordered Home Bound Status Requires the aid of supportive device (check all that apply): Walker Describe why leaving home would require a considerable and taxing effort: Requires frequent rest periods and Safety Concerns: describe (orthostasis) Encounter Date and Reason: I certify that a FTF encounter for this patient was performed on December 12, 2023 and that such encounter was related to the primary reason the patient requires home health services. The encounter was conducted in the following manner: * By me as the certifying physician, LACQUER PIN PRESS OPERATOR, PA or * By an inpatient physician, LACQUER PIN PRESS OPERATOR or PA during an inpatient stay who communicated findings to me, Certification And Authentication I certify that I composed the above information based on my clinical judgment relating to this patient's medical condition and, if applicable, clinical findings communicated to me by the NPP or inpatient physician who performed the FTF encounter. Name of Provider that will be monitoring home health services: Oscar Weinstein
--- NOTE | 2023-12-12 13:48 | PDOC.CMDIS ---
Date of service: 12/12/23 Time of Service: 13:48 LACE Index Scoring Tool Questions: Length of Stay (in days): 4 - 6 Was the patient admitted via the E.D.?: Yes Comorbidities: Previous M.I., Diabetes w/o Complication, Congestive Heart Failure and Chronic Pulmonary Disease E.D. Visits: 4 Answers: Total Score: 16 Risk of Readmission: High Risk Care Management Discharge Plan Reason for Hospitalization: orthostatic hypotension Discharge Plan: Edward will be discharged home with new home health services for nursing, PT and LEAD DATABASE ADMINISTRATOR. He will follow up with his community providers and plan of care and will transport with family. Patient/Family Education Needs: Review of discharge instructions, activity, limitations, precautions, follow up plan, discuss Ask Me Three Services Needed at Discharge: Home Health Care Services SDOH Health Related Social Needs: No Data to Display
[2023-12-12] MEDS: Enoxaparin 40 MG/0.4 ML SYR SC (14:23)
[2023-12-12 14:55] VITALS: BP 117/77; PULSE 81; RESP 22; TEMP 36.4; O2SAT 95
--- NOTE | 2023-12-12 16:05 | W.DIABETESNO ---
Date of service: 12/12/23 Time of Service: 16:05 Diabetes Note Reason for Visit: diabetes education NOTE: Mr Andersen being discharged this evening. I visited pt to offer outpt counseling services re: diabetes education. Pt voiced interest as he states he has had a hard time grasping CHO counting and will consider getting referral from PCP for Diabetes education visits. We reviewed basics of ~1/2 cooked starch is 1 carb serving or 15grams and he should aim between 8-12 per day. As he was getting ready to leave, this education was kept brief and plan is to work with outpt visits to further his comprehension of carb counting. will reach out to pt via phone if I don't hear from him in a week. Time Spent in Nutritional Counseling and Treatment: 15 min
== END 2023-12-12 17:52 | disposition home health service (06) | DRG 74 ==
LOC: ER 18:28 → MS 19:14
PROVIDERS: Internal Medicine; Admitting Provider Family Medicine; Emergency Provider Emergency Medicine Emergency Medical Services; Visit Provider Family Medicine
DX: E11.43 Type 2 diabetes mellitus with diabetic autonomic (poly)neuropathy (principal); I50.22 Chronic systolic (congestive) heart failure; S32.010A Wedge compression fracture of first lumbar vertebra, initial encounter for closed fracture; I95.1 Orthostatic hypotension; E11.65 Type 2 diabetes mellitus with hyperglycemia; Z79.4 Long term (current) use of insulin; E03.9 Hypothyroidism, unspecified; I25.10 Atherosclerotic heart disease of native coronary artery without angina pectoris; R29.6 Repeated falls; E53.8 Deficiency of other specified B group vitamins; I25.2 Old myocardial infarction; E66.9 Obesity, unspecified; E83.42 Hypomagnesemia; K21.9 Gastro-esophageal reflux disease without esophagitis; G25.81 Restless legs syndrome; E11.319 Type 2 diabetes mellitus with unspecified diabetic retinopathy without macular edema; G47.33 Obstructive sleep apnea (adult) (pediatric); H90.3 Sensorineural hearing loss, bilateral; F32.A Depression, unspecified; E78.5 Hyperlipidemia, unspecified; Z91.148 Patient's other noncompliance with medication regimen for other reason; Z95.5 Presence of coronary angioplasty implant and graft; M54.50 Low back pain, unspecified; M25.551 Pain in right hip; Z68.31 Body mass index [BMI] 31.0-31.9, adult
CPT/HCPCS: 00123; 36415; 80048; 80053; 82306; 85027; 93005; 93308; 96360; 97110; 97162; 97530; 99285; J1650; 70450; 73502; 74177; 81003; 81015; 83735; 84484; 85025; 85610; 93010; 93306; 99223; 99232; 99233; 99239; J1815; J3475; J3490

== ENCOUNTER 2023-12-13 11:34 | Emergency (ER) | payer OTHER, SELFPAY ==
[2023-12-13 12:06] VITALS: BP 93/68; PULSE 72; RESP 16; O2SAT 98
== END 2023-12-13 12:22 | disposition left against medical advice (07) ==
LOC: ER 11:44
PROVIDERS: Emergency Provider Emergency Medicine Emergency Medical Services; PCP Family Medicine
DX: R42 Dizziness and giddiness (principal); M25.551 Pain in right hip; F45.8 Other somatoform disorders; E11.3293 Type 2 diabetes mellitus with mild nonproliferative diabetic retinopathy without macular edema, bilateral; I11.0 Hypertensive heart disease with heart failure; I50.22 Chronic systolic (congestive) heart failure; I25.2 Old myocardial infarction; Z79.02 Long term (current) use of antithrombotics/antiplatelets; Z91.81 History of falling; Z79.4 Long term (current) use of insulin; Z79.84 Long term (current) use of oral hypoglycemic drugs; Z79.85 Long-term (current) use of injectable non-insulin antidiabetic drugs; Z95.5 Presence of coronary angioplasty implant and graft
CPT/HCPCS: 99283

== ENCOUNTER → 2023-12-21 01:42 | Outpatient (CLI) | payer OTHER, SELFPAY ==
--- NOTE | 2023-12-21 07:30 | DI.US_ITS ---
Exam(s) US RENAL EXAM: US RENAL CLINICAL HISTORY: Post op,? Hydronephrosis,KIDNEY STONES,N20.0. TECHNIQUE: Rich scale, color and spectral Doppler were used. COMPARISON: CT CT ABDOMEN PELVIS W from 12/08/2023 FINDINGS: Renal size in cm: Right: 10.6. Left: 12.6. Echogenicity: Normal. Hydronephrosis: No. Cyst or mass: No. Nephrolithiasis: No. Other findings: None. Bladder:Normal. Ureteral jets: Right: Visualized and unremarkable. Left: Visualized and unremarkable. Prevoid vol:106 cc Postvoid vol:91 cc Prostate: 26 cc Renal color flow: Symmetric and within normal limits. IMPRESSION: 1. No sonographic evidence of nephrolithiasis or hydronephrosis. 2. Moderate postvoid urinary bladder volume. DATA REPOSITORY:
== END ==
PROVIDERS: PCP Family Medicine; Visit Provider Urology
DX: N20.0 Calculus of kidney (principal)
CPT/HCPCS: 76770

== ENCOUNTER → 2024-01-02 13:47 | Outpatient (BNVA) | payer OTHER, SELFPAY | PROVIDERS: PCP Family Medicine; Referring Provider Family Medicine; Visit Provider Urology | DX: N20.0 Calculus of kidney (principal) | CPT/HCPCS: 99213 ==

== ENCOUNTER 2024-02-09 05:35 | Outpatient (CLI) | payer MEDICARE, MEDICAID, SELFPAY ==
[2024-02-09 12:22] LABS: Vitamin B12 866 pg/mL (193-986)
== END 2024-02-09 05:36 | disposition home or self-care (01) ==
LOC: LBO 05:35
PROVIDERS: PCP Family Medicine; Visit Provider Nurse Practitioner Family
DX: E53.8 Deficiency of other specified B group vitamins (principal)
CPT/HCPCS: 36415; 82607

== ENCOUNTER 2024-06-30 20:26 | Emergency (ER) | payer MEDICARE, MEDICAID, SELFPAY ==
[2024-06-30 20:27] VITALS: BP 148/79; PULSE 56; RESP 16; TEMP 37.1
[2024-06-30] MEDS: Normal Saline 1,000 ML 1000 ML IV (20:34)
[2024-06-30 20:36] VITALS: RESP 20
--- NOTE | 2024-06-30 20:45 | RT.EKG_ITS ---
APPROVED REPORT Exam: Resting ECG Reason for Exam: dizziness Patient Location: E HR:98 bpm ECG Measurements Heart Rate 98 AXIS DC 193 P 37 QRSd 117 QRS -58 QT 366 T 81 QTc 473 Conclusion Sinus tachycardia...rate> 99 Ventricular premature complex...V complex w/ short R-R interval Left anterior fascicular block...axis(240,-40), init forces inf sinus tach. left axis, non ischemic
--- NOTE | 2024-06-30 20:45 | DI.RAD_ITS ---
Exam(s) XR CHEST 2V PA LATERAL EXAM: XR CHEST 2V PA LATERAL CLINICAL HISTORY: dizziness. TECHNIQUE: 2D digital imaging was performed. COMPARISON: CR XR CHEST 2V PA LATERAL from 10/27/2023 FINDINGS: 2 views: Heart size is normal. The mediastinum is not widened. Mildly elevated right hemidiaphragm is unchanged. Left lung is clear. There is platelike atelectasis in the right lung base above the elevated right h emidiaphragm. No pleural effusions IMPRESSION: Mildly elevated right hemidiaphragm with subsegmental platelike atelectasis in the overlying right yesenia ng base. No other pulmonary findings and no evidence of pleural effusions DATA REPOSITORY: RADIATION DOSE DELIVERED:
[2024-06-30 20:50] LABS: BE (Venous) -4 mmol/L (-2-3); HCO3 (Venous) 21 mmol/L (23-28); O2 Sat (Venous) 87 %; TCO2 (Venous) 19 mmol/L (24-29); pCO2 (Venous) 36 mmHg (41-51); pH (Venous) 7.37 (7.31-7.41); pO2 (Venous) 54 mmHg
[2024-06-30 20:53] LABS: Abs Immature Grans 0.04 10^3/uL (0.0-0.06); Absolute Basophil Count 0.04 10^3/uL (0.0-0.2); Absolute Eosinophil Count 0.08 10^3/uL (0.0-0.7); Absolute Lymphocyte Count 1.49 10^3/uL (1.2-3.4); Absolute Monocyte Count 0.87 10^3/uL (0.1-0.8); Basophils % 0.4 %; Eosinophils % 0.8 %; HCT 43.6 % (40.0-50.0); Immature Grans % 0.4 %; Lymphocytes % 14.2 %; MCH 30.5 pg (27.0-33.0); MCHC 34.4 % (32.0-36.0); MCV 89 fL (80-95); MPV 9.4 fL (8.0-11.0); Monocytes % 8.3 %; Neutrophils % 75.9 %; Platelet Count 192 10^3/uL (130-400); RBC 4.92 10^6/uL (4.36-5.78); RDW 13.7 % (11.8-14.1); RDW-SD 44.5 fL; WBC 10.52 10^3/uL (4.4-10.8)
[2024-06-30 20:54] LABS: Lactate 4.6 mmol/L (0.6-1.4)
--- NOTE | 2024-06-30 20:54 | ED.GENADUL_ITS ---
Discharge Plan Discharge Details Chief Complaint: Dizzy/Sync Primary Care Provider: Oscar Weinstein ED Provider: Jaime Brown Home Meds and New Rx's Prescriptions: No Action cyanocobalamin (vitamin B-12) 1,000 mcg tablet 1,000 mcg PO DAILY Qty: 90 3RF nitroglycerin 0.4 mg tablet, sublingual 0.4 mg SL Q5M MDD 3 doses PRN (Reason: chest pain) Qty: 30 0RF Rx Instructions: Take 0.4 mg every 5 minutes up to 3 doses; seek emergent medical care if no relief Ozempic 1 mg/dose (4 mg/3 mL) pen injector 1 mg subcut QWEEK Qty: 3 3RF midodrine 10 mg tablet 10 mg PO TID Qty: 90 3RF Rx Instructions: do not give last dose of day after 6PM or within 4 hrs of bedtime insulin degludec [Tresiba FlexTouch U-100] 100 unit/mL (3 mL) insulin pen 63 unit subcut QHS triamcinolone acetonide 0.5 % cream 1 applic TP .BID-QID Qty: 15 0RF Rx Instructions: Apply thin film to affected area(s) two-four times daily until resolution (DME) lancets Misc See Rx Instructions .ROUTE .MEDSUPPLY Qty: 400 3RF Rx Instructions: As directed to check blood glucose four times daily. On insulin. Dispense covered brand. bupropion HCl 150 mg tablet extended release 24 hr 300 mg PO QAM Rx Instructions: Dose increased 07/2022 (DME) pen needle, diabetic [BD Ultra-Fine Short Pen Needle] 31 gauge x 5/16 needle See Rx Instructions .ROUTE .COMPLEX Qty: 400 3RF Dose Instruction: USE ONCE DAILY TO ADMINISTER LANTUS Rx Instructions: Use as directed to administer insulin 4 times daily. (DME) Blood Glucose Test Strip See Rx Instructions .ROUTE .MEDSUPPLY Qty: 400 3RF Rx Instructions: As directed to check blood glucose QID. On insulin. Dispense covered brand. alcohol swabs [Alcohol Pads] Pads, Medicated 1 pad topical QID Qty: 400 3RF clopidogrel 75 mg tablet See Rx Instructions .ROUTE .COMPLEX Qty: 90 0RF Dose Instruction: TAKE 1 TABLET BY MOUTH DAILY Patient Comments: Pt. states his PCP IS aware he has been off this medication for 2 weeks Rx Instructions: TAKE 1 TABLET BY MOUTH DAILY insulin aspart U-100 [Novolog FlexPen U-100 Insulin] 100 unit/mL (3 mL) insulin pen See Rx Instructions subcut AC Qty: 45 3RF Rx Instructions: 12-16 units per sliding scale subcut before meals; Jardiance 25 mg tablet See Rx Instructions .ROUTE .COMPLEX Qty: 90 3RF Dose Instruction: TAKE 1 TABLET BY MOUTH DAILY Rx Instructions: TAKE 1 TABLET BY MOUTH DAILY spironolactone 25 mg tablet 12.5 mg PO DAILY Qty: 45 3RF metformin 1,000 mg tablet 1,000 mg PO BID Qty: 180 3RF Rx Instructions: pantoprazole 40 mg tablet,delayed release (DR/EC) See Rx Instructions .ROUTE .COMPLEX Qty: 90 3RF Dose Instruction: TAKE 1 TABLET BY MOUTH EVERY MORNING AT LEAST 30 MINUTES BEFORE FIRST MEAL Rx Instructions: TAKE 1 TABLET BY MOUTH EVERY MORNING AT LEAST 30 MINUTES BEFORE FIRST MEAL magnesium oxide 400 mg (241.3 mg magnesium) tablet 400 mg PO DAILY Qty: 90 3RF isosorbide mononitrate 30 mg tablet extended release 24 hr See Rx Instructions .ROUTE .COMPLEX Qty: 28 11RF Dose Instruction: TAKE 1 TABLET BY MOUTH DAILY Rx Instructions: TAKE 1 TABLET BY MOUTH DAILY rosuvastatin [Crestor] 40 mg tablet 40 mg PO HS Qty: 90 3RF Rx Instructions: FOR CHOLESTEROL & HEART PROTECTION sertraline [Zoloft] 100 mg tablet 200 mg PO DAILY Qty: 180 3RF metoprolol succinate 50 mg tablet extended release 24 hr 50 mg PO DAILY Qty: 90 3RF (DME) lancing device with lancets Kit See Rx Instructions .Route Qty: 1 0RF Rx Instructions: Check blood sugars QID DX: E11.9. He is insulin dependent DM. cholecalciferol (vitamin D3) 25 mcg (1,000 unit) tablet 2,000 mcg PO DAILY Qty: 60 0RF (DME) FreeStyle Flako 3 Sensor Device See Rx Instructions .Route Qty: 6 12RF Rx Instructions: DX: E11.9. Insulin Dependent DM type II. Keep A1c below 7. HPI General Date/Time Provider Initiated Documentation: 06/30/24 20:43 . HPI Narrative: 58 year-old male presents to ED today by EMS with a chief complaint of dizziness, confusion, fatigue and chills with onset after having 5 upper right teeth extracted days ago- states has diabetes, endorses polyuria. Quality described as generally feels out of it, no radiation to overt fever, nausea/vomiting, muffled voice, trismus, neck soreness, abdominal pain. Severity is described as severe. Palliating factors include nothing specific attempted. Provoking factors include dental extractions. Events leading up to the incident/Associated Symptoms: States he hasn't been eating well the past 4 days. Patient not anticoagulated. Related Data Home Medications ?Medication ?Instructions ?Recorded ?Confirmed blood sugar diagnostic (Blood #400 ea 06/22/19 04/06/24 Glucose Test strips) triamcinolone acetonide 0.5 % 1 applic topical .BID-QID #15 grams 10/19/19 06/30/24 topical cream lancets #400 ea 04/24/20 04/06/24 alcohol swabs (Alcohol Pads) 1 pad topical QID Prior to 08/08/20 04/06/24 administering insulin for diabetes #400 ea clopidogrel 75 mg tablet See Rx Instructions .Route 07/06/22 06/30/24 .COMPLEX #90 tabs bupropion HCl 150 mg 24 hr tablet, 300 mg PO QAM 08/23/22 06/30/24 extended release insulin aspart U-100 100 unit/mL See Rx Instructions subcut AC #45 01/19/23 06/30/24 (3 mL) subcutaneous pen (Novolog mL FlexPen U-100 Insulin aspart) pen needle, diabetic 31 gauge x #400 ea 02/25/23 04/06/24 5/16 (BD Ultra-Fine Short Pen Needle) cyanocobalamin (vitamin B-12) 1,000 mcg PO DAILY #90 tab-caps 06/30/23 06/30/24 1,000 mcg tablet empagliflozin 25 mg tablet See Rx Instructions .Route 09/26/23 06/30/24 (Jardiance) .COMPLEX #90 tabs metformin 1,000 mg tablet 1,000 mg PO BID diabetes #180 09/26/23 06/30/24 tab-caps pantoprazole 40 mg tablet,delayed See Rx Instructions .Route 09/26/23 06/30/24 release .COMPLEX #90 tabs spironolactone 25 mg tablet 12.5 mg (1/2 x 25 mg) PO DAILY #45 09/26/23 06/30/24 tab-caps magnesium oxide 400 mg (241.3 mg 400 mg PO DAILY #90 tab-caps 10/25/23 06/30/24 magnesium) tablet isosorbide mononitrate 30 mg See Rx Instructions .Route 11/24/23 06/30/24 tablet,extended release 24 hr .COMPLEX #28 tabs rosuvastatin 40 mg tablet (Crestor) 40 mg PO HS #90 tab-caps 11/24/23 06/30/24 sertraline 100 mg tablet (Zoloft) 200 mg (2 x 100 mg) PO DAILY #180 12/13/23 06/30/24 tab-caps nitroglycerin 0.4 mg sublingual 0.4 mg sublingual Q5M PRN chest 01/06/24 06/30/24 tablet pain #30 tab-caps metoprolol succinate 50 mg 50 mg PO DAILY #90 tab-caps 01/16/24 06/30/24 tablet,extended release 24 hr lancing device with lancets kit #1 ea 01/23/24 04/06/24 cholecalciferol (vitamin D3) 25 2,000 mcg (80 x 25 mcg (1,000 01/26/24 06/30/24 mcg (1,000 unit) tablet unit)) PO DAILY #60 tabs insulin degludec 100 unit/mL (3 63 unit subcut QHS Dx: E11.9 to 04/06/24 06/30/24 mL) subcutaneous pen (Tresiba maintain HbA1c less than 7% FlexTouch U-100 insulin) midodrine 10 mg tablet 10 mg PO TID #90 tabs 04/06/24 06/30/24 semaglutide 1 mg/dose (4 mg/3 mL) 1 mg (0.75 mL) subcut QWEEK #3 mL 04/06/24 06/30/24 subcutaneous pen injector (Ozempic) blood-glucose sensor (FreeStyle #6 ea 06/22/24 Flako 3 Sensor device) Previous Rx's ?Medication ?Instructions ?Recorded blood sugar diagnostic (Blood #400 ea 06/22/19 Glucose Test strips) triamcinolone acetonide 0.5 % 1 applic topical .BID-QID #15 grams 10/19/19 topical cream lancets #400 ea 04/24/20 alcohol swabs (Alcohol Pads) 1 pad topical QID Prior to 08/08/20 administering insulin for diabetes #400 ea clopidogrel 75 mg tablet See Rx Instructions .Route 07/06/22 .COMPLEX #90 tabs insulin aspart U-100 100 unit/mL See Rx Instructions subcut AC #45 01/19/23 (3 mL) subcutaneous pen (Novolog mL FlexPen U-100 Insulin aspart) pen needle, diabetic 31 gauge x #400 ea 02/25/2304/05 (BD Ultra-Fine Short Pen Needle) cyanocobalamin (vitamin B-12) 1,000 mcg PO DAILY #90 tab-caps 06/30/23 1,000 mcg tablet empagliflozin 25 mg tablet See Rx Instructions .Route 09/26/23 (Jardiance) .COMPLEX #90 tabs metformin 1,000 mg tablet 1,000 mg PO BID diabetes #180 09/26/23 tab-caps pantoprazole 40 mg tablet,delayed See Rx Instructions .Route 09/26/23 release .COMPLEX #90 tabs spironolactone 25 mg tablet 12.5 mg (1/2 x 25 mg) PO DAILY #45 09/26/23 tab-caps magnesium oxide 400 mg (241.3 mg 400 mg PO DAILY #90 tab-caps 10/25/23 magnesium) tablet isosorbide mononitrate 30 mg See Rx Instructions .Route 11/24/23 tablet,extended release 24 hr .COMPLEX #28 tabs rosuvastatin 40 mg tablet (Crestor) 40 mg PO HS #90 tab-caps 11/24/23 sertraline 100 mg tablet (Zoloft) 200 mg (2 x 100 mg) PO DAILY #180 12/13/23 tab-caps nitroglycerin 0.4 mg sublingual 0.4 mg sublingual Q5M PRN chest 01/06/24 tablet pain #30 tab-caps metoprolol succinate 50 mg 50 mg PO DAILY #90 tab-caps 01/16/24 tablet,extended release 24 hr lancing device with lancets kit #1 ea 01/23/24 cholecalciferol (vitamin D3) 25 2,000 mcg (80 x 25 mcg (1,000 01/26/24 mcg (1,000 unit) tablet unit)) PO DAILY #60 tabs midodrine 10 mg tablet 10 mg PO TID #90 tabs 04/06/24 semaglutide 1 mg/dose (4 mg/3 mL) 1 mg (0.75 mL) subcut QWEEK #3 mL 04/06/24 subcutaneous pen injector (Ozempic) blood-glucose sensor (FreeStyle #6 ea 06/22/24 Flako 3 Sensor device) Allergies Allergy/AdvReac Type Severity Reaction Status Date / Time bee venom protein (honey bee) Allergy Severe Swelling/Ed Verified 06/30/24 20:38 capri Penicillins Allergy Unknown Rash Verified 06/30/24 20:38 shellfish derived Allergy Unknown Rash; Verified 06/30/24 20:38 swelling General Stated Complaint: Dizzy/Sync VAN: 3 Review of Systems All systems reviewed & are unremarkable except as noted in HPI and below Exam Narrative Exam Narrative: GENERAL APPEARANCE: Well-nourished, non-toxic, awake and alert, atraumatic, no acute distress. SKIN: Warm, pink, dry, intact, without rashes/lesions/ulcerations. HEAD: Normocephalic, atraumatic, normal hair distribution for gender/age. EYES: Normal conjunctiva, no exudates on lids/lashes. ENT: Nares patent, no circumoral cyanosis, no facial swelling NECK: Supple, trachea midline, painless cervical ROM. LUNGS/CHEST: Lungs CTA bilaterally, non-labored respirations, normal A/P diameter, symmetrical expansion, no chest wall deformity HEART (CV/PV): Regular rate and rhythm without murmur, no peripheral edema, no JVD. ABDOMEN: Soft, non-distended, no guarding. MSK: Normal ROM, no swelling/deformity to bilateral UEs or LEs, moving all extremities without weakness, no cyanosis, spine midline without tenderness, normal curvature. NEURO: Mental Status AAOx4 - alert to person, place, time, events No facial droop, no forehead involvement. Motor: No focal weakness - strength 5/5 in bilateral UEs and LEs, proximal and distal, symmetric. Sensory: sensation intact to light touch globally. Gait normal: patient ambulated without ataxia into ED room. PSYCH: euthymic, cooperative, pleasant, appropriate speech Course Vital Signs Vital signs: Vital Signs Temperature 37.1 C 06/30/24 20:27 Pulse 56 L 06/30/24 20:27 Respiratory Rate 16 06/30/24 20:27 Blood Pressure 148/79 H 06/30/24 20:27 Temperature 37.1 C 06/30/24 20:27 Temperature Source Temporal Artery Scan 06/30/24 20:27 Pulse 56 L 06/30/24 20:27 Respiratory Rate 20 06/30/24 20:36 Respiratory Effort Normal 06/30/24 20:36 Respiratory Depth Normal 06/30/24 20:36 Respiratory Pattern Normal 06/30/24 20:36 Blood Pressure 148/79 H 06/30/24 20:27 Blood Pressure Position Sitting 06/30/24 20:27 Oxygen Delivery Method Room Air 06/30/24 20:27 Oxygen Flow Rate 0 06/30/24 20:27 Pain Level 9 06/30/24 20:27 Lab/Test Results Lab/Test Results: 06/30/24 20:46 Blood Blood Culture - Pending 06/30/24 20:46 Blood Blood Culture - Pending Laboratory Tests Range/Units 06/30/24 20:33 VBG pH (7.31-7.41) 7.37 VBG pCO2 (41-51) mmHg 36 L VBG pO2 mmHg 54 VBG HCO3 (23-28) mmol/L 21 L VBG Total CO2 (24-29) mmol/L 19 L VBG O2 Saturation % 87 VBG Base Excess (-2-3) mmol/L -4 L VBG Lactate (0.6-1.4) mmol/L 4.6 H* Medical Decision Making This dictation utilizes [id number] dictation software and may contain unedited grammatical errors. 58 year-old male presents to ED today by EMS with a chief complaint of dizziness, confusion, fatigue and chills with onset after having 5 upper right teeth extracted days ago- states has diabetes, endorses polyuria. Quality described as generally feels out of it, no radiation to overt fever, nausea/vomiting, muffled voice, trismus, neck soreness, abdominal pain. Severity is described as severe. Palliating factors include nothing specific attempted. Provoking factors include dental extractions. Events leading up to the incident/Associated Symptoms: States he hasn't been eating well the past 4 days. Patients' medical history: History of osteomyelitis, NSTEMI, oral lesions, status post coronary artery stent placement, dizziness, T2DM, CHF. Family and social history: noncontributory. Pertinent exam findings / vital signs include right maxillary swelling without overt erythema, no trismus, no vocal changes, no nuchal rigidity, mild epigastric tenderness, protuberant but benign abdomen, benign cardiopulmonary status, afebrile. Differential / pathologies of concern include DKA, Cellulitis, Sepsis, Deep Space Infection, CHF, PNA. Diagnostic studies of: -CBC, CMP, CRP/ESR, magnesium, ammonia, VBG, lipase, lactate, procalcitonin, troponin I, BNP, urinalysis, chest x-ray, EKG, CT neck with contrast, Blood C x's. -Initial lactate 4.6, procalcitonin negative -No leukocytosis -VBG shows no acidosis-unlikely DKA -CMP shows some mild increased creatinine beyond baseline, glucose 425 -CRP 4.5 -Troponin I negative, BNP elevated at 610 -Lipase within normal limits, LFTs negative -UA shows trace blood and glucose spilling -EKG shows normal sinus rhythm at 90 bpm with P waves followed by narrow complex QRS with left axis deviation, poor R wave progression, no ST changes or ischemia, normal intervals -CXR shows no pneumonia or pulmonary edema by my read -CT neck w Contrast pending at time of signout Interventions of: -IVF NS 1L - not giving bolus dose as patient has CHF for lactate 4.6. IV Clindamycin 300mg q8rh, 1gm IV magnesium. ED Course/Assessment/Plan: 58-year-old male presents few days after having 5 right upper teeth extracted having some cheek swelling to the right maxillary area, has poorly controlled T2DM, has been taking his basilar insulin but states poor p.o. intake lately, his sugar is 425 and his initial lactate is 4.6, he has a small anion gap. He received some IV fluids by EMS and received another liter here, running slower than 1 L/h due to CHF, received IV clindamycin for empiric dental infection cover his as he was not started on any antibiotics postprocedure. His vitals are reassuring and his VBG shows no acidosis and no ketones in his urine. I suspect that he may have been headed towards a DKA with his endorsed polyuria and mild confusion and dizziness/lightheadedness but is not in overt DKA at this time, reasonable to recheck a BMP and possibly lactate after some IV fluids, start him on outpatient clindamycin if there is no emergent findings on his CT scan. Patient signed out to Dr. Chew at shift change with CT pending. Findings not consistent with deep space infection, sepsis- no white count, not consistent with altered mentation or acidosis. Disposition of Dental Infection, Symptomatic Hyperglycemia. Patient verbalized understanding of the plan and return to ED criteria and engaged in shared decision making. Medical Records Medical records reviewed: Yes I reviewed the patient's medical records. Imaging Data Radiologic Study: Attestation: I personally reviewed and interpreted this imaging study as follows: Imaging: X-Ray My impression: No pulmonary edema or PNA by my read, official read pending at time of sign-out Radiologic Study #2: Attestation: I personally reviewed and interpreted this imaging study as follows: Imaging: CT Scan My impression: Pending at sign-out Lab Data Lab results reviewed: Yes I reviewed the patient's lab results. Labs: 06/30/24 21:00 Blood Blood Culture - Pending 06/30/24 20:46 Blood Blood Culture - Pending Laboratory Tests Range/Units 06/30/24 06/30/24 06/30/24 20:33 21:00 21:31 WBC (4.4-10.8) 10^3/uL 10.52 RBC (4.36-5.78) 10^6/uL 4.92 Hgb (13.5-17.5) g/dL 15.0 Hct (40.0-50.0) % 43.6 MCV (80-95) fL 89 MCH (27.0-33.0) pg 30.5 MCHC (32.0-36.0) % 34.4 RDW (11.8-14.1) % 13.7 Plt Count (130-400) 10^3/uL 192 MPV (8.0-11.0) fL 9.4 Immature Gran % % 0.4 Neutrophils % % 75.9 Lymphocytes % % 14.2 Monocytes % % 8.3 Eosinophils % % 0.8 Basophils % % 0.4 Nucleated RBC % (0.0-0.3) % 0.0 Absolute Neutrophils (1.2-6.7) 10^3/uL 8.00 H Absolute Lymphocytes (1.2-3.4) 10^3/uL 1.49 Absolute Monocytes (0.1-0.8) 10^3/uL 0.87 H Absolute Eosinophils (0.0-0.7) 10^3/uL 0.08 Absolute Basophils (0.0-0.2) 10^3/uL 0.04 VBG pH (7.31-7.41) 7.37 VBG pCO2 (41-51) mmHg 36 L VBG pO2 mmHg 54 VBG HCO3 (23-28) mmol/L 21 L VBG Total CO2 (24-29) mmol/L 19 L VBG O2 Saturation % 87 VBG Base Excess (-2-3) mmol/L -4 L VBG Lactate (0.6-1.4) mmol/L 4.6 H* Sodium (136-145) mmol/L 134 L Potassium (3.5-5.1) mmol/L 4.1 Chloride (98-107) mmol/L 99 Carbon Dioxide (21.0-32.0) mmol/L 22.1 Anion Gap (3-11) mmol/L 12.9 H BUN (7-18) mg/dL 18 Creatinine (0.70-1.30) mg/dL 1.4 H Est GFR (CKD-EPI 2020) (mL/min/1.73m2) 57.54 Glucose (74-106) mg/dL 425 H Calcium (8.5-10.1) mg/dL 9.3 Magnesium (1.8-2.4) mg/dL 1.4 L Total Bilirubin (0.2-1.0) mg/dL 0.50 AST (15-37) U/L 7 L ALT (16-63) U/L 18 Alkaline Phosphatase (46-116) U/L 145 H Ammonia (11-32) umol/L 15 Troponin I (< or =60) ng/L < 50 C-Reactive Protein (<or=0.5) mg/dL 4.55 H NT-Pro-B Natriuret Pep (<300) pg/mL 610 H Total Protein (6.4-8.2) g/dL 7.1 Albumin (3.4-5.0) g/dL 3.4 Lipase (16-77) U/L 38 Procalcitonin ng/mL 0.1 Urine Color (Yellow) Yellow Urine Clarity (Clear) Clear Urine pH (5-8) 5.0 Ur Specific [place] (1.005-1.025) <= 1.005 Urine Protein (Neg-Trace) mg/dL Negative Urine Ketones (Negative) mg/dL Negative Urine Blood (Negative) Trace-intact H Urine Nitrite (Negative) Negative Urine Bilirubin (Negative) Negative Urine Urobilinogen (Up to 0.2) mg/dL 0.2 Ur Leukocyte Esterase (Negative) Negative Urine RBC (0-2) HPF 0-2 Urine WBC (0-5) HPF Negative Ur Epithelial Cells (Negative) HPF Rare Urine Crystals (Negative) HPF Negative Urine Bacteria (Negative) HPF Negative Urine Casts (Negative) LPF Negative Urine Mucus (Negative) Negative Ur Culture Indicated? No Urine Glucose (Negative) mg/dL >=1000 H Quality:SDOH Health Related Social Needs: No Data to Display PFSH All Active Problems (Updated 12/13/23 @ 00:05 by [facility]) Compression fracture of L1 vertebra (Acute) Orthostatic hypotension (Acute) Dizziness (Acute) Autonomic dysfunction with type 2 diabetes mellitus (Acute) Foot ulcer, left (Acute) Chest pain (Acute) Vitamin B12 deficiency (Acute) Subclinical hypothyroidism (Chronic ~02/2023) Monitor Chronic HFrEF (heart failure with reduced ejection fraction) (Chronic 07/20/18) 2018: LVEF 30-35% at presentation; most recent echo 07/24/2020: LVEF 40-45% Type 2 diabetes mellitus with hyperglycemia, with long-term current use of insulin (Chronic 11/25/15) ASCVD (arteriosclerotic cardiovascular disease) (Chronic 07/28/17) NSTEMI with HFrEF 07/11/2017 s/p MADONNA to mLAD on 07/14/2017 at [facility] Obesity (Chronic) Hypomagnesemia (Chronic) Gastroesophageal reflux disease (Chronic) Microalbuminuria (Chronic) Callus of foot (Chronic) Type 2 diabetes mellitus with retinopathy, with long-term current use of insulin (Chronic 10/27/17) Restless leg syndrome (Chronic 10/31/14) Sleep Medicine Obstructive sleep apnea, adult (Chronic 10/31/14) Pt. states he has not been using device 09/01/20 Severe, C-pap, Dr. Almeida continue on CPAP therapy with mask of choice,heated humidification and ramp. pressure should be set at 12 cm/H2o,alternatively auto CPAP 8-14 cm/H2O can be used. (sleep study note cameron Nonproliferative diabetic retinopathy (Chronic) Noncompliance with medication regimen (Chronic 07/06/13) Hyperlipidemia (Chronic 07/06/13) Erectile dysfunction (Chronic 07/06/13) Essential hypertension (Chronic 07/06/13) Depression (Chronic 11/25/11) Sensorineural hearing loss, bilateral (Chronic 11/24/17) Conductive hearing loss in left ear (Acute) Medical History Kidney stones Intermittent gross hematuria Osteomyelitis Diabetic foot ulcer Tubular adenoma of colon (10/18/14) NSTEMI (non-ST elevated myocardial infarction) (07/11/17) 06/2017: S/p MADONNA to mLAD at [facility]; DAPT for a minimum of 1 year Surgical History Lesion of oral mucosa 01/29/[address] Schuster. 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 No dysplasia. PAS stain negative for fungal organisms Colonoscopy - IV Sedation (10/14/14) tubular adenoma Dr. Blancas Cholecystectomy S/P coronary artery stent placement s/p MADONNA to LAD mid 2; Dr. Fercho Eddy, [facility], 07/14/2017 Family History Mother Essential hypertension Father Lung cancer Social History Smoking/Tobacco Use Status: Never Smoking risk assessment performed?: Yes Alcohol Intake: never Drug use: Never Substance use type: does not use Adopted: No Caregiver/Support person: Yes Foster care: No Household members: spouse Housing: house Number of Children: 1 Communication Needs: Hard of Hearing Education Level: high school Do you need help understanding health information?: Never 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 Pets and animals: No Current gender identity: male What is your relationship status?: How often do you talk on the phone with friends or family?: three or more times per week How often do you get together with friends or relatives?: twice per week Do you belong to any clubs or organized social groups?: no Panel score (0-1 are the most socially isolated patients): 2 What type of physical activity do you participate in: walking and other Details: skiing, snowboarding. 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 Symptomatic hyperglycemia without DKA. Receiving IVF, re-check BMP for closed gap. Likely outpatient Rx for clindamycin Last updated by Jaime Brown PA at 06/30/24 22:31
[2024-06-30 21:16] LABS: ALT 18 U/L (16-63); AST 7 U/L (15-37); Albumin 3.4 g/dL (3.4-5.0); Alkaline Phosphatase 145 U/L (46-116); Anion Gap 12.9 mmol/L (3-11); BUN 18 mg/dL (7-18); C-Reactive Protein 4.55 mg/dL (<or=0.5); CO2 22.1 mmol/L (21.0-32.0); CREATININE 1.4 mg/dL (0.70-1.30); Calcium 9.3 mg/dL (8.5-10.1); Chloride 99 mmol/L (98-107); Estimated GFR 57.54 (mL/min/1.73m2); Glucose 425 mg/dL (74-106); Lipase 38 U/L (16-77); Magnesium 1.4 mg/dL (1.8-2.4); NT-proBNP 610 pg/mL (<300); Potassium 4.1 mmol/L (3.5-5.1); Sodium 134 mmol/L (136-145); Total Protein 7.1 g/dL (6.4-8.2); Troponin I < 50 ng/L (< or =60)
[2024-06-30 21:16] LABS: Bilirubin Negative (Negative); Blood Trace-intact (Negative); Clarity Clear (Clear); Glucose >=1000 mg/dL (Negative); Ketones Negative (Negative); Leukocyte Esterase Negative (Negative); Nitrite Negative (Negative); Specific Gravity <= 1.005 (1.005-1.025); Urobilinogen 0.2 mg/dL (Up to 0.2)
[2024-06-30 21:20] LABS: Ammonia 15 umol/L (11-32)
[2024-06-30 21:23] LABS: Procalcitonin 0.1 ng/mL
[2024-06-30 21:33] LABS: Bacteria Negative HPF (Negative); C & S Indicated? No; Casts Negative LPF (Negative); Crystals Negative HPF (Negative); Epithelial Cells Rare HPF (Negative); Mucus Negative (Negative); RBC 0-2 HPF (0-2); WBC Negative HPF (0-5)
[2024-06-30] MEDS: MAGNESIUM SULFATE 1 GM/100 ML BAG IVINF (21:34)
[2024-06-30] MEDS: CLINDAMYCIN 300 MG/50 ML BAG 100 MG IVPB (21:34)
--- NOTE | 2024-06-30 22:36 | DI.VRAD_ITS ---
PROCEDURE INFORMATION: Exam: XR Chest Exam date and time: 06/30/2024 9:21 PM Age: 58 years old Clinical indication: Other: Dizziness TECHNIQUE: Imaging protocol: Radiologic exam of the chest. Views: 2 views. COMPARISON: CR XR CHEST 2V PA LATERAL 10/27/2023 4:10 PM FINDINGS: Lungs: Pulmonary vasculature grossly normal. No gross pulmonary infiltrates or edema pattern. Pleural spaces: No pleural effusion. No pneumothorax. Heart/Mediastinum: Heart size normal. No tracheal/mediastinal shift. Diaphragm: Mild chronic elevation of the right hemidiaphragm unchanged. Bones/joints: No acute osseous abnormalities are identified. Osteopenia. Mild thoracic spondylosis. Intraperitoneal space: Right upper quadrant surgical clips suggest prior cholecystectomy. IMPRESSION: No acute thoracic process. Dictated and Authenticated by: Norberto Do MD. Ordering:JAEL Sandoval MD
[2024-06-30] MEDS: Omnipaque 350 MG/ML 100 ML BTL IJ (23:25)
[2024-06-30] MEDS: Normal Saline - Diluent 50 ML VIAL IJ (23:26)
--- NOTE | 2024-06-30 23:34 | DI.CT_ITS ---
Exam(s) CT NECK W EXAM: CT NECK W INDICATION: recent dental extractions, swelling/infxn. COMPARISON: No exams were available for comparison TECHNIQUE: FINDINGS: FACIAL SOFT TISSUES: There is prominent induration in the subcutaneous tissues over the right-side of the face and ipsilateral sub mandibular soft tissues and there is also preseptal periorbital involvement of the right orbit (no obvious postseptal intraorbital extension). Right orbital globes and retro conal fat compartment appears unremarkable. DENTAL: There are lucencies consistent with dental extractions on both sides of the maxilla. Lateral cortex is deficient at these levels bilaterally. On the right side there is an abscess measuring 1. 2 x 1.0 by 1.4 cm (craniocaudal). Lateral to this there is streaking-induration in the subcutaneous fat over the right-side of the face. There is no obvious abscess on the left side. There are no rec ent appearing extractions in the mandible. No periapical lucencies VISUALIZED PARANASAL SINUSES: Mucosal thickening without fluid level noted in the right maxillary sin us. Left maxillary sinus is clear as are the sphenoid and frontal sinuses and ethmoidal air cells. NASOPHARYNX: Unremarkable ORODENTAL: Unremarkable. OROPHARYNX: Unremarkable. No masses evident. HYPOPHARYNX: Unremarkable. Valleculae and epiglottis and aryepiglottic folds appear normal. VOCAL CORDS: Unremarkable. No masses evident. Subglottic airway appears unremarkable. THYROID GLAND: Unremarkable. Normal size and no obvious nodules. SALIVARY GLANDS: Unremarkable. No significant findings in the parotid and submandibular glands. LYMPH NODES: There is no adenopathy evident in the neck and supraclavicular regions. OTHER: There is calcified plaque at the carotid bifurcations and proximal ICAs bilaterally. There do es not appear to be critical stenosis on either side. There is no thrombosis of the jugular veins. VISUALIZED LUNG APICES: No significant findings. IMPRESSION: 1. There is a 12 x 10 x 14 mm abscess associated with a right maxillary bone dental extraction site and there is overlying soft tissue swelling and induration over the right-side of the face and subman dibular region, and including ipsilateral preseptal orbital cellulitis. 2. Left maxillary extraction site exhibits some adjacent swelling but no obvious discrete abscess, a s is evident on the opposite-right side First read by [facility]. RADIATION DOSE DELIVERED: Total DLP DATA REPOSITORY: All CT scans at this facility are submitted to the National Radiology Data Registry (NRDR) Dose Index Registry (DIR) with the [employer] ([employer]). RADIATION OPTIMIZATION: All CT scans at this facility use at least one of these dose optimization te chniques: automated exposure control; mA and/or kV adjustment per patient size (includes targeted exa ms where dose is matched to clinical indication); or iterative reconstruction.
[2024-07-01 00:17] LABS: Lactate 1.7 mmol/L (0.6-1.4)
--- NOTE | 2024-07-01 00:26 | DI.VRAD_ITS ---
PROCEDURE INFORMATION: Exam: CT Neck With Contrast Exam date and time: 06/30/2024 11:16 PM Age: 58 years old Clinical indication: Mass, lump, or swelling in neck; Right and anterior; Prior surgery; Surgery date: 3-7 days post-operative; Patient HX: Recent dental extraction, swelling/infxn TECHNIQUE: Imaging protocol: Computed tomography of the neck with contrast. Radiation optimization: All CT scans at this facility use at least one of these dose optimization techniques: automated exposure control; mA and/or kV adjustment per patient size (includes targeted exams where dose is matched to clinical indication); or iterative reconstruction. Contrast material: [id number]; Contrast volume: 100 ml; Contrast route: INTRAVENOUS (IV); COMPARISON: CT HEAD WO 12/08/2023 11:14 AM FINDINGS: Brain: Visualized intracranial contents demonstrate no gross abnormality. Orbital cavities: Visualized orbital contents are normal. Paranasal sinuses: Mucosal thickening in the maxillary sinuses suggesting mild chronic sinus inflammatory disease. No fluid levels. The other paranasal sinuses are clear. Mastoid air cells: The mastoid air cells are clear. Salivary glands: The parotid and submandibular glands are unremarkable. Teeth: Lucent defects consistent with recent prior dental extraction in the bilateral maxillary distributions. On the right there is an adjacent 16 x 10 x 15 mm fluid collection at the lateral margin of the extraction site measuring 57 Hounsfield units, concerning for abscess. At the left maxillary extraction site there is lateral cortical disruption and slight adjacent soft tissue swelling but no definite fluid collection. Pharynx: The parapharyngeal spaces are unremarkable. The nasopharynx is unremarkable. The oropharynx is unremarkable. The hypopharynx is unremarkable. Prevertebral and retropharyngeal spaces: Unremarkable. Larynx: Normal epiglottis. Visualized larynx is unremarkable. Thyroid: The visualized thyroid gland is unremarkable. Trachea: The visualized trachea is unremarkable. Lungs: The visualized pulmonary apices are clear. Esophagus: The visualized proximal esophagus is unremarkable. Lymph nodes: No adenopathy. Vasculature: No acute vascular abnormalities are appreciated. Bones/joints: No fractures or other bone lesions are identified. Chronic Schmorl's node in the T3 superior endplate. The infratemporal fossae and slot tag inserter spaces are unremarkable. Soft tissues: Moderate right facial soft tissue swelling predominantly subcutaneous tissues, with right preseptal periorbital involvement but no postseptal intraorbital extension. No involvement of the deep soft tissue planes of the neck. There is extension into the submandibular subcutaneous tissues, but no deep penetration of the submandibular or sublingual spaces. No mediastinal extension. Other findings: No foreign body. IMPRESSION: 1. Right maxillary dental extraction site shows lateral cortical discontinuity with an adjacent 16 mm fluid collection concerning for abscess. 2. Moderate soft tissue swelling in the right face through upper neck consistent with cellulitis. No deep extension. No intraorbital involvement. 3. Left maxillary extraction site shows minor adjacent swelling with no discrete abscess. Dictated and Authenticated by: Norberto Do MD. Ordering:JAEL Sandoval MD
[2024-07-01 00:35] LABS: Anion Gap 8.3 mmol/L (3-11); BUN 17 mg/dL (7-18); CO2 26.7 mmol/L (21.0-32.0); CREATININE 1.2 mg/dL (0.70-1.30); Calcium 9.1 mg/dL (8.5-10.1); Chloride 100 mmol/L (98-107); Estimated GFR 69.23 (mL/min/1.73m2); Glucose 258 mg/dL (74-106); Sodium 135 mmol/L (136-145)
--- NOTE | 2024-07-01 00:45 | W.EDPROG ---
Date of service: 07/01/24 Time of Service: 00:46 Medical Decision Making Patient signed out to me pending repeat BMP and lactate as well as results of CT scan. Originally seen by DEEPAK Brown, please see his initial note for presentation and plan. Patient's repeat lactic acid is almost normal. His repeat BMP with no gap and glucose much improved. CT scan does show significant cellulitis to the right face and a probable abscess related to one of the extraction sites. Patient was seen at [facility] in [place] and will need to follow up with them on Tuesday. Will continue clindamycin 450 mg every 6 hours. Will have him alternate ibuprofen with acetaminophen for pain. Continue ice to help with pain and swelling. Given to go bottles of clindamycin with prescription sent to his pharmacy. Will also provide to go bottle of hydrocodone 5 mg/acetaminophen for severe pain until he can see the dentist. Discussed return precautions. Lab Data Lab results reviewed: Yes I reviewed the patient's lab results. Sign Out Sign Out Data: Sign Out Comment: Post-extraction dental infection, CT pending for deep space r/o. Symptomatic hyperglycemia without DKA. Receiving IVF, re-check BMP for closed gap. Likely outpatient Rx for clindamycin Last updated by Jaime Brown PA at 06/30/24 22:31 Discharge Plan Disposition Patient Disposition: Home Condition: Stable Discharge Details Clinical Impression: Dental abscess, Cellulitis of face Primary Care Provider: Oscar Weinstein ED Provider: Anson Chew and New Rx's Prescriptions: New Hydrocodone/Apap 5/325, 4 Tab [[place] 5/325, 4 Tabs/Btl] 1 tab PO BID Qty: 4 0RF clindamycin HCl 150 mg capsule 450 mg PO Q6H 7 Days Qty: 84 0RF Continued cyanocobalamin (vitamin B-12) 1,000 mcg tablet 1,000 mcg PO DAILY Qty: 90 3RF nitroglycerin 0.4 mg tablet, sublingual 0.4 mg SL Q5M MDD 3 doses PRN (Reason: chest pain) Qty: 30 0RF Rx Instructions: Take 0.4 mg every 5 minutes up to 3 doses; seek emergent medical care if no relief Ozempic 1 mg/dose (4 mg/3 mL) pen injector 1 mg subcut QWEEK Qty: 3 3RF midodrine 10 mg tablet 10 mg PO TID Qty: 90 3RF Rx Instructions: do not give last dose of day after 6PM or within 4 hrs of bedtime insulin degludec [Tresiba FlexTouch U-100] 100 unit/mL (3 mL) insulin pen 63 unit subcut QHS triamcinolone acetonide 0.5 % cream 1 applic TP .BID-QID Qty: 15 0RF Rx Instructions: Apply thin film to affected area(s) two-four times daily until resolution (DME) lancets Misc See Rx Instructions .ROUTE .MEDSUPPLY Qty: 400 3RF Rx Instructions: As directed to check blood glucose four times daily. On insulin. Dispense covered brand. bupropion HCl 150 mg tablet extended release 24 hr 300 mg PO QAM Rx Instructions: Dose increased 07/2022 (DME) pen needle, diabetic [BD Ultra-Fine Short Pen Needle] 31 gauge x 5/16 needle See Rx Instructions .ROUTE .COMPLEX Qty: 400 3RF Dose Instruction: USE ONCE DAILY TO ADMINISTER LANTUS Rx Instructions: Use as directed to administer insulin 4 times daily. (DME) Blood Glucose Test Strip See Rx Instructions .ROUTE .MEDSUPPLY Qty: 400 3RF Rx Instructions: As directed to check blood glucose QID. On insulin. Dispense covered brand. alcohol swabs [Alcohol Pads] Pads, Medicated 1 pad topical QID Qty: 400 3RF clopidogrel 75 mg tablet See Rx Instructions .ROUTE .COMPLEX Qty: 90 0RF Dose Instruction: TAKE 1 TABLET BY MOUTH DAILY Patient Comments: Pt. states his PCP IS aware he has been off this medication for 2 weeks Rx Instructions: TAKE 1 TABLET BY MOUTH DAILY insulin aspart U-100 [Novolog FlexPen U-100 Insulin] 100 unit/mL (3 mL) insulin pen See Rx Instructions subcut AC Qty: 45 3RF Rx Instructions: 12-16 units per sliding scale subcut before meals; Jardiance 25 mg tablet See Rx Instructions .ROUTE .COMPLEX Qty: 90 3RF Dose Instruction: TAKE 1 TABLET BY MOUTH DAILY Rx Instructions: TAKE 1 TABLET BY MOUTH DAILY spironolactone 25 mg tablet 12.5 mg PO DAILY Qty: 45 3RF metformin 1,000 mg tablet 1,000 mg PO BID Qty: 180 3RF Rx Instructions: pantoprazole 40 mg tablet,delayed release (DR/EC) See Rx Instructions .ROUTE .COMPLEX Qty: 90 3RF Dose Instruction: TAKE 1 TABLET BY MOUTH EVERY MORNING AT LEAST 30 MINUTES BEFORE FIRST MEAL Rx Instructions: TAKE 1 TABLET BY MOUTH EVERY MORNING AT LEAST 30 MINUTES BEFORE FIRST MEAL magnesium oxide 400 mg (241.3 mg magnesium) tablet 400 mg PO DAILY Qty: 90 3RF isosorbide mononitrate 30 mg tablet extended release 24 hr See Rx Instructions .ROUTE .COMPLEX Qty: 28 11RF Dose Instruction: TAKE 1 TABLET BY MOUTH DAILY Rx Instructions: TAKE 1 TABLET BY MOUTH DAILY rosuvastatin [Crestor] 40 mg tablet 40 mg PO HS Qty: 90 3RF Rx Instructions: FOR CHOLESTEROL & HEART PROTECTION sertraline [Zoloft] 100 mg tablet 200 mg PO DAILY Qty: 180 3RF metoprolol succinate 50 mg tablet extended release 24 hr 50 mg PO DAILY Qty: 90 3RF (DME) lancing device with lancets Kit See Rx Instructions .Route Qty: 1 0RF Rx Instructions: Check blood sugars QID DX: E11.9. He is insulin dependent DM. cholecalciferol (vitamin D3) 25 mcg (1,000 unit) tablet 2,000 mcg PO DAILY Qty: 60 0RF (DME) FreeStyle Falko 3 Sensor Device See Rx Instructions .Route Qty: 6 12RF Rx Instructions: DX: E11.9. Insulin Dependent DM type II. Keep A1c below 7. Discharge Instructions Instructions: Cellulitis (Skin Infection), Adult ED, Opioids for Short-Term Treatment of Pain ED, Tooth Abscess ED Additional Instructions: You have an infection related to your dental extraction resulting in the pain and swelling. You will need to follow-up with them Tuesday for further management. Antibiotics have been started here. You may alternate acetaminophen with ibuprofen for pain. You may use the hydrocodone/acetaminophen provided here for severe pain but should avoid driving, alcohol and acknowledge that these are narcotic pain medications. Please take the antibiotics as directed. Return to the ED for any worsening pain or swelling, difficulty breathing, inability to swallow, spiking fevers, mental status change, other concerns.
[2024-07-01] MEDS: Clindamycin 150 MG CAP, 12 CAPS/BTL 450 MG PO (01:14)
[2024-07-01 01:15] VITALS: BP 132/89; PULSE 87; RESP 18; TEMP 37.1; O2SAT 97
== END 2024-07-01 00:55 | disposition home or self-care (01) ==
PROVIDERS: Physician Assistant; Emergency Provider Emergency Medicine; PCP Family Medicine
DX: R55 Syncope and collapse (principal); K04.7 Periapical abscess without sinus; L03.211 Cellulitis of face; Z98.818 Other dental procedure status; Z98.890 Other specified postprocedural states; R35.0 Frequency of micturition
CPT/HCPCS: 00123; 36415; 70491; 80048; 80053; 82805; 83690; 84145; 87040; 93005; 96361; 96365; 96367; 99284; 71046; 81003; 81015; 82140; 83605; 83735; 83880; 84484; 85025; 86140; 93010; 99283; J0736; J3475; J3490

== ENCOUNTER 2024-07-01 21:44 | Emergency (ER) | payer MEDICARE, MEDICAID, SELFPAY ==
[2024-07-01 21:35] VITALS: BP 135/89; PULSE 118; RESP 16; TEMP 36.2; O2SAT 96
[2024-07-02 00:27] LABS: BE (Venous) 3 mmol/L (-2-3); HCO3 (Venous) 27 mmol/L (23-28); Lactate 1.3 mmol/L (0.6-1.4); O2 Sat (Venous) 68 %; TCO2 (Venous) 24 mmol/L (24-29); pCO2 (Venous) 44 mmHg (41-51); pO2 (Venous) 35 mmHg
[2024-07-02 00:28] LABS: Abs Immature Grans 0.06 10^3/uL (0.0-0.06); Absolute Basophil Count 0.05 10^3/uL (0.0-0.2); Absolute Eosinophil Count 0.11 10^3/uL (0.0-0.7); Absolute Monocyte Count 1.12 10^3/uL (0.1-0.8); Basophils % 0.4 %; Eosinophils % 0.9 %; HCT 46.3 % (40.0-50.0); HGB 16.1 g/dL (13.5-17.5); Immature Grans % 0.5 %; Lymphocytes % 15.2 %; MCH 30.7 pg (27.0-33.0); MCHC 34.8 % (32.0-36.0); MCV 88 fL (80-95); Monocytes % 9.5 %; Neutrophils % 73.5 %; Platelet Count 199 10^3/uL (130-400); RBC 5.25 10^6/uL (4.36-5.78); RDW 13.4 % (11.8-14.1); RDW-SD 43.5 fL; WBC 11.82 10^3/uL (4.4-10.8)
[2024-07-02 00:30] LABS: Absolute Neutrophil Count 8.69 10^3/uL (1.2-6.7)
--- NOTE | 2024-07-02 00:40 | W.ED.GENAD ---
Discharge Plan Disposition Patient Disposition: Home Condition: Good Discharge Details Clinical Impression: Dental infection Primary Care Provider: Oscar Weinstein ED Provider: Makayla Lemus Home Meds and New Rx's Prescriptions: Continued cyanocobalamin (vitamin B-12) 1,000 mcg tablet 1,000 mcg PO DAILY Qty: 90 3RF nitroglycerin 0.4 mg tablet, sublingual 0.4 mg SL Q5M MDD 3 doses PRN (Reason: chest pain) Qty: 30 0RF Rx Instructions: Take 0.4 mg every 5 minutes up to 3 doses; seek emergent medical care if no relief Ozempic 1 mg/dose (4 mg/3 mL) pen injector 1 mg subcut QWEEK Qty: 3 3RF midodrine 10 mg tablet 10 mg PO TID Qty: 90 3RF Rx Instructions: do not give last dose of day after 6PM or within 4 hrs of bedtime insulin degludec [Tresiba FlexTouch U-100] 100 unit/mL (3 mL) insulin pen 63 unit subcut QHS triamcinolone acetonide 0.5 % cream 1 applic TP .BID-QID Qty: 15 0RF Rx Instructions: Apply thin film to affected area(s) two-four times daily until resolution (DME) lancets Misc See Rx Instructions .ROUTE .MEDSUPPLY Qty: 400 3RF Rx Instructions: As directed to check blood glucose four times daily. On insulin. Dispense covered brand. bupropion HCl 150 mg tablet extended release 24 hr 300 mg PO QAM Rx Instructions: Dose increased 07/2022 (DME) pen needle, diabetic [BD Ultra-Fine Short Pen Needle] 31 gauge x 5/16 needle See Rx Instructions .ROUTE .COMPLEX Qty: 400 3RF Dose Instruction: USE ONCE DAILY TO ADMINISTER LANTUS Rx Instructions: Use as directed to administer insulin 4 times daily. (DME) Blood Glucose Test Strip See Rx Instructions .ROUTE .MEDSUPPLY Qty: 400 3RF Rx Instructions: As directed to check blood glucose QID. On insulin. Dispense covered brand. alcohol swabs [Alcohol Pads] Pads, Medicated 1 pad topical QID Qty: 400 3RF clopidogrel 75 mg tablet See Rx Instructions .ROUTE .COMPLEX Qty: 90 0RF Dose Instruction: TAKE 1 TABLET BY MOUTH DAILY Patient Comments: Pt. states his PCP IS aware he has been off this medication for 2 weeks Rx Instructions: TAKE 1 TABLET BY MOUTH DAILY insulin aspart U-100 [Novolog FlexPen U-100 Insulin] 100 unit/mL (3 mL) insulin pen See Rx Instructions subcut AC Qty: 45 3RF Rx Instructions: 12-16 units per sliding scale subcut before meals; Jardiance 25 mg tablet See Rx Instructions .ROUTE .COMPLEX Qty: 90 3RF Dose Instruction: TAKE 1 TABLET BY MOUTH DAILY Rx Instructions: TAKE 1 TABLET BY MOUTH DAILY spironolactone 25 mg tablet 12.5 mg PO DAILY Qty: 45 3RF metformin 1,000 mg tablet 1,000 mg PO BID Qty: 180 3RF Rx Instructions: pantoprazole 40 mg tablet,delayed release (DR/EC) See Rx Instructions .ROUTE .COMPLEX Qty: 90 3RF Dose Instruction: TAKE 1 TABLET BY MOUTH EVERY MORNING AT LEAST 30 MINUTES BEFORE FIRST MEAL Rx Instructions: TAKE 1 TABLET BY MOUTH EVERY MORNING AT LEAST 30 MINUTES BEFORE FIRST MEAL magnesium oxide 400 mg (241.3 mg magnesium) tablet 400 mg PO DAILY Qty: 90 3RF isosorbide mononitrate 30 mg tablet extended release 24 hr See Rx Instructions .ROUTE .COMPLEX Qty: 28 11RF Dose Instruction: TAKE 1 TABLET BY MOUTH DAILY Rx Instructions: TAKE 1 TABLET BY MOUTH DAILY rosuvastatin [Crestor] 40 mg tablet 40 mg PO HS Qty: 90 3RF Rx Instructions: FOR CHOLESTEROL & HEART PROTECTION sertraline [Zoloft] 100 mg tablet 200 mg PO DAILY Qty: 180 3RF metoprolol succinate 50 mg tablet extended release 24 hr 50 mg PO DAILY Qty: 90 3RF (DME) lancing device with lancets Kit See Rx Instructions .Route Qty: 1 0RF Rx Instructions: Check blood sugars QID DX: E11.9. He is insulin dependent DM. cholecalciferol (vitamin D3) 25 mcg (1,000 unit) tablet 2,000 mcg PO DAILY Qty: 60 0RF (DME) FreeStyle Flako 3 Sensor Device See Rx Instructions .Route Qty: 6 12RF Rx Instructions: DX: E11.9. Insulin Dependent DM type II. Keep A1c below 7. Hydrocodone/Apap 5/325, 4 Tab [[place] 5/325, 4 Tabs/Btl] 1 tab PO BID Qty: 4 0RF clindamycin HCl 150 mg capsule 450 mg PO Q6H 7 Days Qty: 84 0RF Discharge Instructions Instructions: Dental abscess Additional Instructions: Continuing your antibiotics and pain medications as previously prescribed. Call your dentist first thing in the morning to schedule an appointment to be seen today. Return to the emergency department for new or worsening symptoms including neck pain, vision changes, pain when you move your eyes, difficulty opening your mouth, difficulty swallowing, fever, or if you have any other concerns. Referrals: Oscar Weinstein DO [Primary Care Provider] - [facility] General Mode of arrival: EMS. Date/Time Provider Initiated Documentation: 07/01/24 22:06. Limitations to Documentation: no limitations. Information obtained by: patient and old records reviewed. HPI Narrative: 58yo M with hx T2DM, CAD, CHF, VIVIANE, presenting with dental pain and facial swelling. Seen in this ED yesterday evening for same and discharged on clindamycin. Pain and swelling have been worsening since then. Had multiple teeth extracted on Tuesday. Over the past 3-4 days has noted worsening pain in his right upper gum and adjacent facial swelling. Symptoms have persisted and continued to worse despite clindamycin for the past 24 hours. No difficulty opening his mouth, no neck pain, no difficulty breathing or swallowing. Systemically well with no fevers, chills, rash, nausea, vomiting, abdominal pain, or other concerns. Related Data Home Medications ?Medication ?Instructions ?Recorded ?Confirmed blood sugar diagnostic (Blood #400 ea 06/22/19 04/06/24 Glucose Test strips) triamcinolone acetonide 0.5 % 1 applic topical .BID-QID #15 grams 10/19/19 07/02/24 topical cream lancets #400 ea 04/24/20 04/06/24 alcohol swabs (Alcohol Pads) 1 pad topical QID Prior to 08/08/20 07/02/24 administering insulin for diabetes #400 ea clopidogrel 75 mg tablet See Rx Instructions .Route 07/06/22 07/02/24 .COMPLEX #90 tabs bupropion HCl 150 mg 24 hr tablet, 300 mg PO QAM 08/23/22 07/02/24 extended release insulin aspart U-100 100 unit/mL See Rx Instructions subcut AC #45 01/19/23 07/02/24 (3 mL) subcutaneous pen (Novolog mL FlexPen U-100 Insulin aspart) pen needle, diabetic 31 gauge x #400 ea 02/25/23 04/06/24 5/16 (BD Ultra-Fine Short Pen Needle) cyanocobalamin (vitamin B-12) 1,000 mcg PO DAILY #90 tab-caps 06/30/23 07/02/24 1,000 mcg tablet empagliflozin 25 mg tablet See Rx Instructions .Route 09/26/23 07/02/24 (Jardiance) .COMPLEX #90 tabs metformin 1,000 mg tablet 1,000 mg PO BID diabetes #180 09/26/23 07/02/24 tab-caps pantoprazole 40 mg tablet,delayed See Rx Instructions .Route 09/26/23 07/02/24 release .COMPLEX #90 tabs spironolactone 25 mg tablet 12.5 mg (1/2 x 25 mg) PO DAILY #45 09/26/23 07/02/24 tab-caps magnesium oxide 400 mg (241.3 mg 400 mg PO DAILY #90 tab-caps 10/25/23 07/02/24 magnesium) tablet isosorbide mononitrate 30 mg See Rx Instructions .Route 11/24/23 07/02/24 tablet,extended release 24 hr .COMPLEX #28 tabs rosuvastatin 40 mg tablet (Crestor) 40 mg PO HS #90 tab-caps 11/24/23 07/02/24 sertraline 100 mg tablet (Zoloft) 200 mg (2 x 100 mg) PO DAILY #180 12/13/23 07/02/24 tab-caps nitroglycerin 0.4 mg sublingual 0.4 mg sublingual Q5M PRN chest 01/06/24 07/02/24 tablet pain #30 tab-caps metoprolol succinate 50 mg 50 mg PO DAILY #90 tab-caps 01/16/24 07/02/24 tablet,extended release 24 hr lancing device with lancets kit #1 ea 01/23/24 04/06/24 cholecalciferol (vitamin D3) 25 2,000 mcg (80 x 25 mcg (1,000 01/26/24 07/02/24 mcg (1,000 unit) tablet unit)) PO DAILY #60 tabs insulin degludec 100 unit/mL (3 63 unit subcut QHS Dx: E11.9 to 04/06/24 07/02/24 mL) subcutaneous pen (Tresiba maintain HbA1c less than 7% FlexTouch U-100 insulin) midodrine 10 mg tablet 10 mg PO TID #90 tabs 04/06/24 07/02/24 semaglutide 1 mg/dose (4 mg/3 mL) 1 mg (0.75 mL) subcut QWEEK #3 mL 04/06/24 07/02/24 subcutaneous pen injector (Ozempic) blood-glucose sensor (FreeStyle #6 ea 06/22/24 Flako 3 Sensor device) HYDROcodone/APAP 5/325, 4 tab 1 tab PO BID #4 caps 07/01/24 07/02/24 [[place] 5/325, 4 tabs/btl] clindamycin HCl 150 mg capsule 450 mg (3 x 150 mg) PO Q6H 7 days 07/01/24 07/02/24 #84 caps Previous Rx's ?Medication ?Instructions ?Recorded blood sugar diagnostic (Blood #400 ea 06/22/19 Glucose Test strips) triamcinolone acetonide 0.5 % 1 applic topical .BID-QID #15 grams 10/19/19 topical cream lancets #400 ea 04/24/20 alcohol swabs (Alcohol Pads) 1 pad topical QID Prior to 08/08/20 administering insulin for diabetes #400 ea clopidogrel 75 mg tablet See Rx Instructions .Route 07/06/22 .COMPLEX #90 tabs insulin aspart U-100 100 unit/mL See Rx Instructions subcut AC #45 01/19/23 (3 mL) subcutaneous pen (Novolog mL FlexPen U-100 Insulin aspart) pen needle, diabetic 31 gauge x #400 ea 02/25/2304/05 (BD Ultra-Fine Short Pen Needle) cyanocobalamin (vitamin B-12) 1,000 mcg PO DAILY #90 tab-caps 06/30/23 1,000 mcg tablet empagliflozin 25 mg tablet See Rx Instructions .Route 09/26/23 (Jardiance) .COMPLEX #90 tabs metformin 1,000 mg tablet 1,000 mg PO BID diabetes #180 09/26/23 tab-caps pantoprazole 40 mg tablet,delayed See Rx Instructions .Route 09/26/23 release .COMPLEX #90 tabs spironolactone 25 mg tablet 12.5 mg (1/2 x 25 mg) PO DAILY #45 09/26/23 tab-caps magnesium oxide 400 mg (241.3 mg 400 mg PO DAILY #90 tab-caps 10/25/23 magnesium) tablet isosorbide mononitrate 30 mg See Rx Instructions .Route 11/24/23 tablet,extended release 24 hr .COMPLEX #28 tabs rosuvastatin 40 mg tablet (Crestor) 40 mg PO HS #90 tab-caps 11/24/23 sertraline 100 mg tablet (Zoloft) 200 mg (2 x 100 mg) PO DAILY #180 12/13/23 tab-caps nitroglycerin 0.4 mg sublingual 0.4 mg sublingual Q5M PRN chest 01/06/24 tablet pain #30 tab-caps metoprolol succinate 50 mg 50 mg PO DAILY #90 tab-caps 01/16/24 tablet,extended release 24 hr lancing device with lancets kit #1 ea 01/23/24 cholecalciferol (vitamin D3) 25 2,000 mcg (80 x 25 mcg (1,000 01/26/24 mcg (1,000 unit) tablet unit)) PO DAILY #60 tabs midodrine 10 mg tablet 10 mg PO TID #90 tabs 04/06/24 semaglutide 1 mg/dose (4 mg/3 mL) 1 mg (0.75 mL) subcut QWEEK #3 mL 04/06/24 subcutaneous pen injector (Ozempic) blood-glucose sensor (FreeStyle #6 ea 06/22/24 Flako 3 Sensor device) HYDROcodone/APAP 5/325, 4 tab 1 tab PO BID #4 caps 07/01/24 [[place] 5/325, 4 tabs/btl] clindamycin HCl 150 mg capsule 450 mg (3 x 150 mg) PO Q6H 7 days 07/01/24 #84 caps Allergies Allergy/AdvReac Type Severity Reaction Status Date / Time bee venom protein (honey bee) Allergy Severe Swelling/Ed Verified 06/30/24 20:38 capri Penicillins Allergy Unknown Rash Verified 06/30/24 20:38 shellfish derived Allergy Unknown Rash; Verified 06/30/24 20:38 swelling General Stated Complaint: DentalOral VAN: 3 Review of Systems Narrative: see HPI Exam Narrative Exam Narrative: General: Alert, well appearing, well nourished, in no acute distress. Head: Normocephalic, atraumatic. Full pain free EOMI Neck: Trachea midline, ?Neck supple. Anterior neck nontender. ENT: ?MMM.? No oropharygeal lesions or exudate. No visible intraoral abscess amenable to drainge. TTP over the maxilla with moderate swelling, no overlying erythema. No palpable abscess. No trismus. Normal phonation. Cardiac: ?RRR, no murmurs appreciated Resp: No respiratory distress. CTAB. Abd: ?Soft, non-distended, nontender Extremities: ?No deformities.? Neurologic: GCS 15. ? Moves all extremities freely against gravity Course Vital Signs Vital signs: Vital Signs Temperature 36.2 C L 07/01/24 21:35 Pulse 118 H 07/01/24 21:35 Respiratory Rate 16 07/01/24 21:35 Blood Pressure 135/89 07/01/24 21:35 Pulse Oximetry 96 07/01/24 21:35 Temperature 36.2 C L 07/01/24 21:35 Temperature Source Temporal Artery Scan 07/01/24 21:35 Pulse 118 H 07/01/24 21:35 Respiratory Rate 16 07/01/24 21:35 Respiratory Effort Normal 07/02/24 00:24 Blood Pressure 135/89 07/01/24 21:35 Blood Pressure Position Sitting 07/01/24 21:35 Pulse Oximetry 96 07/01/24 21:35 Oxygen Delivery Method Room Air 07/01/24 21:35 Oxygen Flow Rate 0 07/01/24 21:35 Pain Level 8 07/01/24 21:35 Lab/Test Results Lab/Test Results: Laboratory Tests Range/Units 07/02/24 00:21 WBC (4.4-10.8) 10^3/uL 11.82 H RBC (4.36-5.78) 10^6/uL 5.25 Hgb (13.5-17.5) g/dL 16.1 Hct (40.0-50.0) % 46.3 MCV (80-95) fL 88 MCH (27.0-33.0) pg 30.7 MCHC (32.0-36.0) % 34.8 RDW (11.8-14.1) % 13.4 Plt Count (130-400) 10^3/uL 199 MPV (8.0-11.0) fL 9.0 Immature Gran % % 0.5 Neutrophils % % 73.5 Lymphocytes % % 15.2 Monocytes % % 9.5 Eosinophils % % 0.9 Basophils % % 0.4 Nucleated RBC % (0.0-0.3) % 0.0 Absolute Neutrophils (1.2-6.7) 10^3/uL 8.69 H Absolute Lymphocytes (1.2-3.4) 10^3/uL 1.80 Absolute Monocytes (0.1-0.8) 10^3/uL 1.12 H Absolute Eosinophils (0.0-0.7) 10^3/uL 0.11 Absolute Basophils (0.0-0.2) 10^3/uL 0.05 VBG pH (7.31-7.41) 7.40 VBG pCO2 (41-51) mmHg 44 VBG pO2 mmHg 35 VBG HCO3 (23-28) mmol/L 27 VBG Total CO2 (24-29) mmol/L 24 VBG O2 Saturation % 68 VBG Base Excess (-2-3) mmol/L 3 VBG Lactate (0.6-1.4) mmol/L 1.3 Medical Decision Making 58yo M with hx T2DM, CAD, CHF, VIVIANE, presenting with dental pain and facial swelling. Seen in this ED yesterday evening for same and discharged on clindamycin. Pain and swelling have been worsening since then. Systemically well, afebrile. Tachycardiac on arrival to 110's after ambulating into triage, vital signs otherwise reassuring. HR 90's on my exam. Right sided facial and tenderness on exam; exam not concerning for deep space neck infection, buccal space infection, orbital cellulitis, Marquez's, Lemiere's, etc. Would not repeat CT here today. Some increase in symptoms in the first 24 hours of antibiotics is not unexpected; would expect to stabilize shortly and begin to improve. Labs reviewed as below, CBC with mild leukocytosis to 11.8, CMP reassuring with no actionable abnormalities, VBG normal, lactate normal. Not septic. Advised continuing with clindamycin as previously prescribed, dental followup in the morning. Patient states his dentist is open on Tuesday and he expects that they will be able to see him. Discharged home to dental followup; discharge instructions and return precautions were reviewed with patient who verbalized understanding. All questions were answered and he is in full agreement with the plan. Medical Records Medical records reviewed: Yes I reviewed the patient's medical records. Medical records narrative: ED visit note 06/30/24 CT 06/30/24: IMPRESSION: 1. There is a 12 x 10 x 14 mm abscess associated with a right maxillary bone dental extraction site and there is overlying soft tissue swelling and induration over the right-side of the face and submandibular region, and including ipsilateral preseptal orbital cellulitis. 2. Left maxillary extraction site exhibits some adjacent swelling but no obvious discrete abscess, as is evident on the opposite-right side Lab Data Lab results reviewed: Yes I reviewed the patient's lab results. Labs: Laboratory Tests Range/Units 07/02/24 00:21 WBC (4.4-10.8) 10^3/uL 11.82 H RBC (4.36-5.78) 10^6/uL 5.25 Hgb (13.5-17.5) g/dL 16.1 Hct (40.0-50.0) % 46.3 MCV (80-95) fL 88 MCH (27.0-33.0) pg 30.7 MCHC (32.0-36.0) % 34.8 RDW (11.8-14.1) % 13.4 Plt Count (130-400) 10^3/uL 199 MPV (8.0-11.0) fL 9.0 Immature Gran % % 0.5 Neutrophils % % 73.5 Lymphocytes % % 15.2 Monocytes % % 9.5 Eosinophils % % 0.9 Basophils % % 0.4 Nucleated RBC % (0.0-0.3) % 0.0 Absolute Neutrophils (1.2-6.7) 10^3/uL 8.69 H Absolute Lymphocytes (1.2-3.4) 10^3/uL 1.80 Absolute Monocytes (0.1-0.8) 10^3/uL 1.12 H Absolute Eosinophils (0.0-0.7) 10^3/uL 0.11 Absolute Basophils (0.0-0.2) 10^3/uL 0.05 VBG pH (7.31-7.41) 7.40 VBG pCO2 (41-51) mmHg 44 VBG pO2 mmHg 35 VBG HCO3 (23-28) mmol/L 27 VBG Total CO2 (24-29) mmol/L 24 VBG O2 Saturation % 68 VBG Base Excess (-2-3) mmol/L 3 VBG Lactate (0.6-1.4) mmol/L 1.3 Sodium (136-145) mmol/L 136 Potassium (3.5-5.1) mmol/L 4.6 Chloride (98-107) mmol/L 99 Carbon Dioxide (21.0-32.0) mmol/L 26.3 Anion Gap (3-11) mmol/L 10.7 BUN (7-18) mg/dL 25 H Creatinine (0.70-1.30) mg/dL 1.2 Est GFR (CKD-EPI 2020) (mL/min/1.73m2) 69.23 Glucose (74-106) mg/dL 235 H Calcium (8.5-10.1) mg/dL 10.1 Total Bilirubin (0.2-1.0) mg/dL 0.90 AST (15-37) U/L 18 ALT (16-63) U/L 19 Alkaline Phosphatase (46-116) U/L 115 Total Protein (6.4-8.2) g/dL 8.4 H Albumin (3.4-5.0) g/dL 3.7 Quality:SDOH Health Related Social Needs: No Data to Display PFSH All Active Problems (Updated 07/02/24 @ 01:18 by Makayla Lemus MD) Dental infection (Acute) Cellulitis of face (Acute) Dental abscess (Acute) Compression fracture of L1 vertebra (Acute) Orthostatic hypotension (Acute) Dizziness (Acute) Autonomic dysfunction with type 2 diabetes mellitus (Acute) Foot ulcer, left (Acute) Chest pain (Acute) Vitamin B12 deficiency (Acute) Subclinical hypothyroidism (Chronic ~02/2023) Monitor Chronic HFrEF (heart failure with reduced ejection fraction) (Chronic 07/20/18) 2018: LVEF 30-35% at presentation; most recent echo 07/24/2020: LVEF 40-45% Type 2 diabetes mellitus with hyperglycemia, with long-term current use of insulin (Chronic 11/25/15) ASCVD (arteriosclerotic cardiovascular disease) (Chronic 07/28/17) NSTEMI with HFrEF 07/11/2017 [place]AD[place]NA [place] [facility] [place]esity (Chronic) Hypomagnesemia (Chronic) Gastroesophageal reflux disease (Chronic) Microalbuminuria (Chronic) Callus of foot (Chronic) Type 2 diabetes mellitus with retinopathy, with long-term current use of insulin (Chronic 10/27/17) Restless leg syndrome (Chronic 10/31/14) Sleep Medicine Obstructive sleep apnea, adult (Chronic 10/31/14) Pt. states he has not been using device 09/01/20 Severe, C-pap, Dr. Almeida continue on CPAP therapy with mask of choice,heated humidification and ramp. pressure should be set at 12 cm/H2o,alternatively auto CPAP 8-14 cm/H2O can be used. (sleep study note cameron Nonproliferative diabetic retinopathy (Chronic) Noncompliance with medication regimen (Chronic 07/06/13) Hyperlipidemia (Chronic 07/06/13) Erectile dysfunction (Chronic 07/06/13) Essential hypertension (Chronic 07/06/13) Depression (Chronic 11/25/11) Sensorineural hearing loss, bilateral (Chronic 11/24/17) Conductive hearing loss in left ear (Acute) Medical History Kidney stones Intermittent gross hematuria Osteomyelitis Diabetic foot ulcer Tubular adenoma of colon (10/18/14) NSTEMI (non-ST elevated myocardial infarction) (07/11/17) 06/2017: [place] [facility] [place] DAPT for a minimum of 1 year Surgical History Lesion of oral mucosa 01/29/[address] Schuster. 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 No dysplasia. PAS stain negative for fungal organisms Colonoscopy - IV Sedation (10/14/14) tubular adenoma Dr. Blancas Cholecystectomy S/P coronary artery stent placement s/p MADONNA to LAD mid 2; Dr. Fercho Eddy, [facility] [place], 07/14/2017 Family History Mother Essential hypertension Father Lung cancer Social History Smoking/Tobacco Use Status: Never Smoking risk assessment performed?: Yes Alcohol Intake: never Drug use: Never Substance use type: does not use Adopted: No Caregiver/Support person: Yes Foster care: No Household members: spouse Housing: house Number of Children: 1 Communication Needs: Hard of Hearing Education Level: high school Do you need help understanding health information?: Never 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 Pets and animals: No Current gender identity: male What is your relationship status?: How often do you talk on the phone with friends or family?: three or more times per week How often do you get together with friends or relatives?: twice per week Do you belong to any clubs or organized social groups?: no Panel score (0-1 are the most socially isolated patients): 2 What type of physical activity do you participate in: walking and other Details: skiing, snowboarding. 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 superintendent drivers: No Do you feel safe at home: Yes Do you feel safe in your relationship?: Yes
[2024-07-02 00:46] LABS: ALT 19 U/L (16-63); AST 18 U/L (15-37); Albumin 3.7 g/dL (3.4-5.0); Alkaline Phosphatase 115 U/L (46-116); Anion Gap 10.7 mmol/L (3-11); BUN 25 mg/dL (7-18); CO2 26.3 mmol/L (21.0-32.0); CREATININE 1.2 mg/dL (0.70-1.30); Calcium 10.1 mg/dL (8.5-10.1); Chloride 99 mmol/L (98-107); Estimated GFR 69.23 (mL/min/1.73m2); Glucose 235 mg/dL (74-106); Potassium 4.6 mmol/L (3.5-5.1); Sodium 136 mmol/L (136-145); Total Protein 8.4 g/dL (6.4-8.2)
[2024-07-02 01:24] VITALS: BP 151/101; PULSE 105; RESP 14; TEMP 37.1; O2SAT 96
== END 2024-07-02 02:15 | disposition home or self-care (01) ==
PROVIDERS: Emergency Provider Student in an Organized Health Care Education/Training Program; PCP Family Medicine
DX: K04.7 Periapical abscess without sinus (principal); Z98.818 Other dental procedure status; E11.9 Type 2 diabetes mellitus without complications; I25.10 Atherosclerotic heart disease of native coronary artery without angina pectoris; I11.0 Hypertensive heart disease with heart failure; I50.9 Heart failure, unspecified; E78.5 Hyperlipidemia, unspecified; I25.2 Old myocardial infarction
CPT/HCPCS: 80053; 82805; 99283; 83605; 85025; 99284

== ENCOUNTER 2024-07-02 12:05 | Emergency (ER) | payer MEDICARE, MEDICAID, SELFPAY ==
[2024-07-02 12:07] VITALS: BP 156/99; PULSE 103; RESP 20; TEMP 36.7; O2SAT 97
--- NOTE | 2024-07-02 12:52 | W.ED.GENAD ---
Discharge Plan Disposition Patient Disposition: Transfer-Acute Inpatient Care Specific Acute Inpt Facility: [facility] Condition: Stable Discharge Details Clinical Impression: Dental abscess Primary Care Provider: Oscar Weinstein ED Provider: Tatum Regalado Home Meds and New Rx's Prescriptions: No Action cyanocobalamin (vitamin B-12) 1,000 mcg tablet 1,000 mcg PO DAILY Qty: 90 3RF nitroglycerin 0.4 mg tablet, sublingual 0.4 mg SL Q5M MDD 3 doses PRN (Reason: chest pain) Qty: 30 0RF Rx Instructions: Take 0.4 mg every 5 minutes up to 3 doses; seek emergent medical care if no relief insulin degludec [Tresiba FlexTouch U-100] 100 unit/mL (3 mL) insulin pen 63 unit subcut QHS Ozempic 2 mg/dose (8 mg/3 mL) pen injector 2 mg subcut QWEEK Qty: 3 0RF bupropion HCl 150 mg tablet extended release 24 hr 300 mg PO QAM Qty: 180 3RF Rx Instructions: Dose increased 07/2022 Jardiance 25 mg tablet See Rx Instructions .ROUTE .COMPLEX Qty: 90 3RF Dose Instruction: TAKE 1 TABLET BY MOUTH DAILY Rx Instructions: TAKE 1 TABLET BY MOUTH DAILY lisinopril 2.5 mg tablet 2.5 mg PO DAILY Qty: 90 3RF magnesium oxide 400 mg (241.3 mg magnesium) tablet 400 mg PO DAILY Qty: 90 3RF metformin 1,000 mg tablet 1,000 mg PO BID Qty: 180 3RF Rx Instructions: metoprolol succinate 50 mg tablet extended release 24 hr 50 mg PO DAILY Qty: 90 3RF midodrine 10 mg tablet 10 mg PO TID Qty: 90 3RF Rx Instructions: do not give last dose of day after 6PM or within 4 hrs of bedtime pantoprazole 40 mg tablet,delayed release (DR/EC) See Rx Instructions .ROUTE .COMPLEX Qty: 90 3RF Dose Instruction: TAKE 1 TABLET BY MOUTH EVERY MORNING AT LEAST 30 MINUTES BEFORE FIRST MEAL Rx Instructions: TAKE 1 TABLET BY MOUTH EVERY MORNING AT LEAST 30 MINUTES BEFORE FIRST MEAL rosuvastatin [Crestor] 40 mg tablet 40 mg PO HS Qty: 90 3RF Rx Instructions: FOR CHOLESTEROL & HEART PROTECTION spironolactone 25 mg tablet 12.5 mg PO DAILY Qty: 45 3RF (DME) lancets Mis See Rx Instructions .ROUTE .MEDSUPPLY Qty: 400 3RF Rx Instructions: As directed to check blood glucose four times daily. On insulin. Dispense covered brand. (DME) pen needle, diabetic [BD Ultra-Fine Short Pen Needle] 31 gauge x 5/16 needle See Rx Instructions .ROUTE .COMPLEX Qty: 400 3RF Dose Instruction: USE ONCE DAILY TO ADMINISTER LANTUS Rx Instructions: Use as directed to administer insulin 4 times daily. (DME) Blood Glucose Test Strip See Rx Instructions .ROUTE .MEDSUPPLY Qty: 400 3RF Rx Instructions: As directed to check blood glucose QID. On insulin. Dispense covered brand. alcohol swabs [Alcohol Pads] Pads, Medicated 1 pad topical QID Qty: 400 3RF clopidogrel 75 mg tablet See Rx Instructions .ROUTE .COMPLEX Qty: 90 0RF Dose Instruction: TAKE 1 TABLET BY MOUTH DAILY Patient Comments: Pt. states his PCP IS aware he has been off this medication for 2 weeks Rx Instructions: TAKE 1 TABLET BY MOUTH DAILY insulin aspart U-100 [Novolog FlexPen U-100 Insulin] 100 unit/mL (3 mL) insulin pen See Rx Instructions subcut AC Qty: 45 3RF Rx Instructions: 12-16 units per sliding scale subcut before meals; isosorbide mononitrate 30 mg tablet extended release 24 hr See Rx Instructions .ROUTE .COMPLEX Qty: 28 11RF Dose Instruction: TAKE 1 TABLET BY MOUTH DAILY Rx Instructions: TAKE 1 TABLET BY MOUTH DAILY sertraline [Zoloft] 100 mg tablet 200 mg PO DAILY Qty: 180 3RF (DME) lancing device with lancets Kit See Rx Instructions .Route Qty: 1 0RF Rx Instructions: Check blood sugars QID DX: E11.9. He is insulin dependent DM. cholecalciferol (vitamin D3) 25 mcg (1,000 unit) tablet 2,000 mcg PO DAILY Qty: 60 0RF (DME) FreeStyle Flako 3 Sensor Device See Rx Instructions .Route Qty: 6 12RF Rx Instructions: DX: E11.9. Insulin Dependent DM type II. Keep A1c below 7. Discharge Data Discharge Date/Time-TO BE ENTERED AT DEPARTURE: 07/02/24 18:50 HPI <Tatum Regalado NP - Last Filed: 07/02/24 16:41> General Mode of arrival: ambulatory. Date/Time Provider Initiated Documentation: 07/02/24 12:08. Limitations to Documentation: no limitations. Information obtained by: patient, RN notes reviewed and old records reviewed. HPI Narrative: 58 year old male presents with worsening right facial swelling after having multiple teeth extracted at [facility] last week and a tooth extracted on the left. Has active bleeding from a hematoma to left upper gum. Patient seen here in ED 2 days ago and again early this am and was instructed to continue taking Clindamycin 450mg QID as previously instructed. Patient states that he called his dentist and they instructed him to return to the emergency department for stronger antibiotics. He reports the swelling is getting worse. He is speaking in full sentences denies any fever or chills. He did have a CT of his neck with contrast 2 days ago which showed a small abscess in the right maxillary sinus. He does have some ecchymosis noted to the inferior aspect of his right jaw. He does have swelling all the way up around his eye. He reports that sometimes his eyes swollen shut. Past medical history includes type 2 diabetes, vascular sclerotic vascular disease, NSTEMI, kidney stones, osteomyelitis. He denies being on any blood thinners at this time. Related Data Home Medications ?Medication ?Instructions ?Recorded ?Confirmed blood sugar diagnostic (Blood #400 ea 06/22/19 07/12/24 Glucose Test strips) lancets #400 ea 04/24/20 07/12/24 alcohol swabs (Alcohol Pads) 1 pad topical QID Prior to 08/08/20 07/12/24 administering insulin for diabetes #400 ea clopidogrel 75 mg tablet See Rx Instructions .Route 07/06/22 07/12/24 .COMPLEX #90 tabs insulin aspart U-100 100 unit/mL See Rx Instructions subcut AC #45 01/19/23 07/12/24 (3 mL) subcutaneous pen (Novolog mL FlexPen U-100 Insulin aspart) pen needle, diabetic 31 gauge x #400 ea 02/25/23 07/12/2404/05 (BD Ultra-Fine Short Pen Needle) cyanocobalamin (vitamin B-12) 1,000 mcg PO DAILY #90 tab-caps 06/30/23 07/12/24 1,000 mcg tablet isosorbide mononitrate 30 mg See Rx Instructions .Route 11/24/23 07/12/24 tablet,extended release 24 hr .COMPLEX #28 tabs sertraline 100 mg tablet (Zoloft) 200 mg (2 x 100 mg) PO DAILY #180 12/13/23 07/12/24 tab-caps nitroglycerin 0.4 mg sublingual 0.4 mg sublingual Q5M PRN chest 01/06/24 07/12/24 tablet pain #30 tab-caps lancing device with lancets kit #1 ea 01/23/24 07/12/24 cholecalciferol (vitamin D3) 25 2,000 mcg (80 x 25 mcg (1,000 01/26/24 07/12/24 mcg (1,000 unit) tablet unit)) PO DAILY #60 tabs insulin degludec 100 unit/mL (3 63 unit subcut QHS Dx: E11.9 to 04/06/24 07/12/24 mL) subcutaneous pen (Tresiba maintain HbA1c less than 7% FlexTouch U-100 insulin) blood-glucose sensor (FreeStyle #6 ea 06/22/24 07/12/24 Flako 3 Sensor device) bupropion HCl 150 mg 24 hr tablet, 300 mg (2 x 150 mg) PO QAM #180 07/12/24 07/12/24 extended release tabs empagliflozin 25 mg tablet See Rx Instructions .Route 07/12/24 07/12/24 (Jardiance) .COMPLEX #90 tabs lisinopril 2.5 mg tablet 2.5 mg PO DAILY #90 tabs 07/12/24 07/12/24 magnesium oxide 400 mg (241.3 mg 400 mg PO DAILY #90 tab-caps 07/12/24 07/12/24 magnesium) tablet metformin 1,000 mg tablet 1,000 mg PO BID diabetes #180 07/12/24 07/12/24 tab-caps metoprolol succinate 50 mg 50 mg PO DAILY #90 tab-caps 07/12/24 07/12/24 tablet,extended release 24 hr midodrine 10 mg tablet 10 mg PO TID #90 tabs 07/12/24 07/12/24 pantoprazole 40 mg tablet,delayed See Rx Instructions .Route 07/12/24 07/12/24 release .COMPLEX #90 tabs rosuvastatin 40 mg tablet (Crestor) 40 mg PO HS #90 tab-caps 07/12/24 07/12/24 semaglutide 2 mg/dose (8 mg/3 mL) 2 mg (0.75 mL) subcut QWEEK #3 mL 07/12/24 07/12/24 subcutaneous pen injector (Ozempic) spironolactone 25 mg tablet 12.5 mg (1/2 x 25 mg) PO DAILY #45 07/12/24 07/12/24 tab-caps Previous Rx's ?Medication ?Instructions ?Recorded blood sugar diagnostic (Blood #400 ea 06/22/19 Glucose Test strips) lancets #400 ea 04/24/20 alcohol swabs (Alcohol Pads) 1 pad topical QID Prior to 08/08/20 administering insulin for diabetes #400 ea clopidogrel 75 mg tablet See Rx Instructions .Route 07/06/22 .COMPLEX #90 tabs insulin aspart U-100 100 unit/mL See Rx Instructions subcut AC #45 01/19/23 (3 mL) subcutaneous pen (Novolog mL FlexPen U-100 Insulin aspart) pen needle, diabetic 31 gauge x #400 ea 02/25/23/16 (BD Ultra-Fine Short Pen Needle) cyanocobalamin (vitamin B-12) 1,000 mcg PO DAILY #90 tab-caps 06/30/23 1,000 mcg tablet isosorbide mononitrate 30 mg See Rx Instructions .Route 11/24/23 tablet,extended release 24 hr .COMPLEX #28 tabs sertraline 100 mg tablet (Zoloft) 200 mg (2 x 100 mg) PO DAILY #180 12/13/23 tab-caps nitroglycerin 0.4 mg sublingual 0.4 mg sublingual Q5M PRN chest 01/06/24 tablet pain #30 tab-caps lancing device with lancets kit #1 ea 01/23/24 cholecalciferol (vitamin D3) 25 2,000 mcg (80 x 25 mcg (1,000 01/26/24 mcg (1,000 unit) tablet unit)) PO DAILY #60 tabs blood-glucose sensor (FreeStyle #6 ea 06/22/24 Flako 3 Sensor device) bupropion HCl 150 mg 24 hr tablet, 300 mg (2 x 150 mg) PO QAM #180 07/12/24 extended release tabs empagliflozin 25 mg tablet See Rx Instructions .Route 08/22/24 (Jardiance) .COMPLEX #90 tabs lisinopril 2.5 mg tablet 2.5 mg PO DAILY #90 tabs 07/12/24 magnesium oxide 400 mg (241.3 mg 400 mg PO DAILY #90 tab-caps 07/12/24 magnesium) tablet metformin 1,000 mg tablet 1,000 mg PO BID diabetes #180 07/12/24 tab-caps metoprolol succinate 50 mg 50 mg PO DAILY #90 tab-caps 07/12/24 tablet,extended release 24 hr midodrine 10 mg tablet 10 mg PO TID #90 tabs 07/12/24 pantoprazole 40 mg tablet,delayed See Rx Instructions .Route 07/12/24 release .COMPLEX #90 tabs rosuvastatin 40 mg tablet (Crestor) 40 mg PO HS #90 tab-caps 07/12/24 semaglutide 2 mg/dose (8 mg/3 mL) 2 mg (0.75 mL) subcut QWEEK #3 mL 07/12/24 subcutaneous pen injector (Ozempic) spironolactone 25 mg tablet 12.5 mg (1/2 x 25 mg) PO DAILY #45 07/12/24 tab-caps Allergies Allergy/AdvReac Type Severity Reaction Status Date / Time bee venom protein (honey bee) Allergy Severe Swelling/Ed Verified 07/12/24 09:57 capri Penicillins Allergy Unknown Rash Verified 07/12/24 09:57 shellfish derived Allergy Unknown Rash; Verified 07/12/24 09:57 swelling General Stated Complaint: DentalOral VAN: 4 Review of Systems <Tatum Regalado NP - Last Filed: 07/02/24 16:41> All systems reviewed & are unremarkable except as noted in HPI and below ENT Ears, Nose, Mouth, and Throat: Reports as per HPI, Reports bleeding gums, Reports facial pain, Reports mouth pain and Reports other (Facial swelling) Exam <Tatum Regalado NP - Last Filed: 07/02/24 16:41> Const General: cooperative Nutritional Appearance: average body habitus Orientation: alert, awake and oriented x3 HENMT Head: periorbital ecchymosis Head images: 1. Significant facial swelling with ecchymosis it does extend periorbital around the right eye EOMs are intact. Right cheek over the zygomatic process is very taut. Face and sinus: ecchymosis on the right mandible and submandibular, erythema and edema on the right mandible, malar area and maxilla Face images: 1. Swelling and ecchymosis Mouth: no trismus Teeth and gingiva: gingiva abnormal edematous (Hematoma noted to left anterior gum) Teeth image: 1. Hematoma at the gumline from previous extraction area 2. Previous extraction area, positive fluctuance palpated Neck Neck: normal visual inspection Resp Effort & Inspection: normal respiratory effort and able to speak in complete sentences Auscultation: clear to auscultation bilaterally Cardio Rate: tachycardic Rhythm: regular rhythm Heart Sounds: S1 normal and S2 normal Neuro General: patient alert, patient awake and patient oriented x3 Cranial Nerves: CN's II-XI intact bilaterally Cognition: normal cognition Speech: speech normal Course <Tatum Regalado NP - Last Filed: 07/02/24 16:41> Vital Signs Vital signs: Vital Signs Temperature 36.7 C 07/02/24 12:07 Pulse 103 H 07/02/24 12:07 Respiratory Rate 20 07/02/24 12:07 Blood Pressure 156/99 H 07/02/24 12:07 Pulse Oximetry 97 07/02/24 12:07 Temperature 36.7 C 07/02/24 12:07 Temperature Source Temporal Artery Scan 07/02/24 12:07 Pulse 103 H 07/02/24 12:07 Respiratory Rate 20 07/02/24 12:07 Blood Pressure 156/99 H 07/02/24 12:07 Blood Pressure Position Sitting 07/02/24 12:07 Pulse Oximetry 97 07/02/24 12:07 Oxygen Delivery Method Room Air 07/02/24 12:07 Oxygen Flow Rate 0 07/02/24 12:07 Procedures <Blake Flower MD - Last Filed: 07/16/24 17:28> Abscess I/D Site: Other (dental) Side (if applicable): Right Sedation/analgesia: None Local Anesthetic: Other Anesthetic (mucosal benzocaine) Technique: Incised with #11 Blade Packing used?: None Complications: Other (none) Medical Decision Making <Tatum Regalado NP - Last Filed: 07/02/24 16:41> 58 year old male presents with worsening right facial swelling after having multiple teeth extracted at [facility] last week and a tooth extracted on the left. Has active bleeding from a hematoma to left upper gum. Patient seen here in ED 2 days ago and again early this am and was instructed to continue taking Clindamycin 450mg QID as previously instructed. Patient states that he called his dentist and they instructed him to return to the emergency department for stronger antibiotics. He reports the swelling is getting worse. He is speaking in full sentences denies any fever or chills. He did have a CT of his neck with contrast 2 days ago which showed a small abscess in the right maxillary sinus. He does have some ecchymosis noted to the inferior aspect of his right jaw. He does have swelling all the way up around his eye. He reports that sometimes his eyes swollen shut. Past medical history includes type 2 diabetes, vascular sclerotic vascular disease, NSTEMI, kidney stones, osteomyelitis. He denies being on any blood thinners at this time. CBC, CMP, IV Clindamycin 600 mg and Flagyl 500 mg ordered. 1406: At BS with Dr Flower who incised area of fluctuance of previous extraction ro Right upper mandible, Patient tolerated well, no-purulent drainage, bloody drainage noted. Suction used. Also noted left upper gum line hematoma pressure applied. Will plan to consult with [facility] oral facial specialist. CT neck with contrast ordered to re-evaluate abscess to rule out worsening or change. Patient informed of plan of care. 1450: [facility] has no oral surgery at this time and ENT does not cover dental.Will page [facility]. 1451: [facility] called, they will page ENT Dr. cao, they do not have oral surgery at this time. 1519: [facility] in [place] called to speak with Dentist if available 1529: Spoke with ENT at [facility] Dr. Mccloud will call me back. 1530: Spoke with Kamar who reports worsening of abscesses, on the right with interval increasing in size and also worsening left sided abscess. Please see official report. 1614: Spoke with Dr. Edwards who agrees to accept patient to ER will plan for transfer to ED to ED, spoke with ED provider Dr. Nieves Will arrange for transfer. This text was generated using [employer] system, please disregard any oddities of phrase or misspellings. Medical Records Medical records reviewed: Yes I reviewed the patient's medical records. Medical records narrative: Reviewed records from last 2 days. Imaging Data Radiologic Study: Imaging: CT Scan Radiologist's impression: CT NECK W EXAM: CT NECK W INDICATION: Right dental abscess, facial swelling. COMPARISON: CT CT NECK W from 06/30/2024 TECHNIQUE: FINDINGS: DENTAL/FACIAL SOFT TISSUES: Again noted is the previously described prominent streaking-induration in the subcutaneous tissues over the right-side of the face. This has significantly increased from previous CT scan of 2 days ago. This extends over the left side of the 5th face in the submandibular region. Ipsilateral preseptal orbital cellulitis is again noted. The previously described right side abscess associated with the right maxillary dental extraction site has increased in size, presently measuring 1.9 cm wide by 2.3 cm AP by 2.5 cm craniocaudal. There is dehiscence of the lateral cortex of the maxilla at the site of extraction again noted. On the opposite-left side there appears to be a smaller abscess associated with the extraction site symmetrically located in the maxilla where there is also some dehiscence of the lateral cortex of the left maxilla. Abscess at this level measures 1.5 x 1.5 by 1.6 cm. Milder amount of soft tissue swelling-edema seen on the left side of the face. VISUALIZED PARANASAL SINUSES: Mucosal thickening is again noted in the ipsilateral right maxillary sinus. No associated fluid level. Opposite-left maxillary sinus is clear as are the other paranasal sinuses. NASOPHARYNX: Unremarkable OROPHARYNX: Unremarkable. No masses evident. HYPOPHARYNX: Unremarkable. Valleculae and epiglottis and aryepiglottic folds appear normal. VOCAL CORDS: Unremarkable. No masses evident. Subglottic airway appears unremarkable. THYROID GLAND: Unremarkable. Normal size and no obvious nodules. SALIVARY GLANDS: Unremarkable. No significant findings in the parotid and submandibular glands. LYMPH NODES: There is no adenopathy evident in the neck and supraclavicular regions. OTHER: VISUALIZED LUNG APICES: No significant findings. IMPRESSION: 1. Compared to prior CT scan of 06/30/2024 there is further deterioration as described above with enlarging size bilateral abscesses associated with bilateral maxillary dental extraction sites. There is also increasing amount of soft tissue induration-inflammatory involvement and skin thickening/cellulitis appearance of the right-side of the face and this is now spread across the midline to involve the subcutaneous pre platysmal fat over the left side of the face-submandibular region. Called by myself to ER provider 07/02/2024 at 3:30 p.m. Lab Data Lab results reviewed: Yes I reviewed the patient's lab results. Labs: Laboratory Tests Range/Units 07/02/24 14:13 WBC (4.4-10.8) 10^3/uL 9.80 RBC (4.36-5.78) 10^6/uL 4.97 Hgb (13.5-17.5) g/dL 15.2 Hct (40.0-50.0) % 43.8 MCV (80-95) fL 88 MCH (27.0-33.0) pg 30.6 MCHC (32.0-36.0) % 34.7 RDW (11.8-14.1) % 13.5 Plt Count (130-400) 10^3/uL 202 MPV (8.0-11.0) fL 9.1 Immature Gran % % 0.5 Neutrophils % % 65.3 Lymphocytes % % 23.5 Monocytes % % 9.1 Eosinophils % % 1.2 Basophils % % 0.4 Nucleated RBC % (0.0-0.3) % 0.0 Absolute Neutrophils (1.2-6.7) 10^3/uL 6.40 Absolute Lymphocytes (1.2-3.4) 10^3/uL 2.30 Absolute Monocytes (0.1-0.8) 10^3/uL 0.89 H Absolute Eosinophils (0.0-0.7) 10^3/uL 0.12 Absolute Basophils (0.0-0.2) 10^3/uL 0.04 VBG Lactate (0.6-1.4) mmol/L 0.8 Sodium (136-145) mmol/L 137 Potassium (3.5-5.1) mmol/L 3.9 Chloride (98-107) mmol/L 99 Carbon Dioxide (21.0-32.0) mmol/L 29.0 Anion Gap (3-11) mmol/L 9.0 BUN (7-18) mg/dL 30 H Creatinine (0.70-1.30) mg/dL 1.2 Est GFR (CKD-EPI 2020) (mL/min/1.73m2) 69.23 Glucose (74-106) mg/dL 199 H Calcium (8.5-10.1) mg/dL 9.5 Total Bilirubin (0.2-1.0) mg/dL 0.79 AST (15-37) U/L 15 ALT (16-63) U/L 22 Alkaline Phosphatase (46-116) U/L 109 Total Protein (6.4-8.2) g/dL 7.9 Albumin (3.4-5.0) g/dL 3.5 Quality:[facility] Health Related Social Needs: No Data to Display <Blake Flower MD - Last Filed: 07/16/24 17:28> Date: 07/02/24 Time: 14:45 Note: Patient seen, examined, and discussed with JAMES Regalado. Reviewed CT from 06/30/2024, examined the patient, patient provided informed consent to proceed with incision and drainage. Attempted I&D did not produce significant drainage. Plan to obtain repeat CT consult with oral maxillofacial specialist at [facility]. Patient to receive metronidazole IV. I agree with treatment plan as discussed/documented. PFSH <Tatum Regalado NP - Last Filed: 07/02/24 16:41> All Active Problems (Updated 07/02/24 @ 16:21 by Tatum Regalado NP) Dental abscess (Acute) Dental infection (Acute) Cellulitis of face (Acute) Dental abscess (Acute) Compression fracture of L1 vertebra (Acute) Orthostatic hypotension (Acute) Dizziness (Acute) Autonomic dysfunction with type 2 diabetes mellitus (Acute) Foot ulcer, left (Acute) Chest pain (Acute) Vitamin B12 deficiency (Acute) Subclinical hypothyroidism (Chronic ~02/2023) Monitor Chronic HFrEF (heart failure with reduced ejection fraction) (Chronic 07/20/18) 2018: LVEF 30-35% at presentation; most recent echo 07/24/2020: LVEF 40-45% Type 2 diabetes mellitus with hyperglycemia, with long-term current use of insulin (Chronic 11/25/15) ASCVD (arteriosclerotic cardiovascular disease) (Chronic 07/28/17) NSTEMI with HFrEF 07/11/2017 s/p MADONNA to mLAD on 07/14/2017 at [facility] Obesity (Chronic) Hypomagnesemia (Chronic) Gastroesophageal reflux disease (Chronic) Microalbuminuria (Chronic) Callus of foot (Chronic) Type 2 diabetes mellitus with retinopathy, with long-term current use of insulin (Chronic 10/27/17) Restless leg syndrome (Chronic 10/31/14) Sleep Medicine Obstructive sleep apnea, adult (Chronic 10/31/14) Pt. states he has not been using device 09/01/20 Severe, C-pap, Dr. Almeida continue on CPAP therapy with mask of choice,heated humidification and ramp. pressure should be set at 12 cm/H2o,alternatively auto CPAP 8-14 cm/H2O can be used. (sleep study note cameron Nonproliferative diabetic retinopathy (Chronic) Noncompliance with medication regimen (Chronic 07/06/13) Hyperlipidemia (Chronic 07/06/13) Erectile dysfunction (Chronic 07/06/13) Essential hypertension (Chronic 07/06/13) Depression (Chronic 11/25/11) Sensorineural hearing loss, bilateral (Chronic 11/24/17) Conductive hearing loss in left ear (Acute) Medical History Kidney stones Intermittent gross hematuria Osteomyelitis Diabetic foot ulcer Tubular adenoma of colon (10/18/14) NSTEMI (non-ST elevated myocardial infarction) (07/11/17) 06/2017: S/p MADONNA to mLAD at [facility]; DAPT for a minimum of 1 year Surgical History Lesion of oral mucosa 01/29/[address] Schuster. 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 No dysplasia. PAS stain negative for fungal organisms Colonoscopy - IV Sedation (10/14/14) tubular adenoma Dr. Blancas Cholecystectomy S/P coronary artery stent placement s/p MADONNA to LAD mid 2; Dr. Fercho Eddy, [facility], 07/14/2017 Family History Mother Essential hypertension Father Lung cancer Social History Smoking/Tobacco Use Status: Never Smoking risk assessment performed?: Yes Alcohol Intake: never Drug use: Never Substance use type: does not use Adopted: No Caregiver/Support person: Yes Foster care: No Household members: spouse Housing: house Number of Children: 1 Communication Needs: Hard of Hearing Education Level: high school Do you need help understanding health information?: Never 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 Pets and animals: No Current gender identity: male What is your relationship status?: How often do you talk on the phone with friends or family?: three or more times per week How often do you get together with friends or relatives?: twice per week Do you belong to any clubs or organized social groups?: no Panel score (0-1 are the most socially isolated patients): 2 What type of physical activity do you participate in: walking and other Details: skiing, snowboarding. 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
--- NOTE | 2024-07-02 14:00 | DI.CT_ITS ---
Exam(s) CT NECK W EXAM: CT NECK W INDICATION: Right dental abscess, facial swelling. COMPARISON: CT CT NECK W from 06/30/2024 TECHNIQUE: FINDINGS: DENTAL/FACIAL SOFT TISSUES: Again noted is the previously described prominent streaking-induration in the subcutaneous tissues over the right-side of the face. This has significantly increased from pre vious CT scan of 2 days ago. This extends over the left side of the 5th face in the submandibular re gion. Ipsilateral preseptal orbital cellulitis is again noted. The previously described right side abscess associated with the right maxillary dental extraction sit e has increased in size, presently measuring 1.9 cm wide by 2.3 cm AP by 2.5 cm craniocaudal. There is dehiscence of the lateral cortex of the maxilla at the site of extraction again noted. On the opposite-left side there appears to be a smaller abscess associated with the extraction site s ymmetrically located in the maxilla where there is also some dehiscence of the lateral cortex of the left maxilla. Abscess at this level measures 1.5 x 1.5 by 1.6 cm. Milder amount of soft tissue swel ling-edema seen on the left side of the face. VISUALIZED PARANASAL SINUSES: Mucosal thickening is again noted in the ipsilateral right maxillary si nus. No associated fluid level. Opposite-left maxillary sinus is clear as are the other paranasal s inuses. NASOPHARYNX: Unremarkable OROPHARYNX: Unremarkable. No masses evident. HYPOPHARYNX: Unremarkable. Valleculae and epiglottis and aryepiglottic folds appear normal. VOCAL CORDS: Unremarkable. No masses evident. Subglottic airway appears unremarkable. THYROID GLAND: Unremarkable. Normal size and no obvious nodules. SALIVARY GLANDS: Unremarkable. No significant findings in the parotid and submandibular glands. LYMPH NODES: There is no adenopathy evident in the neck and supraclavicular regions. OTHER: VISUALIZED LUNG APICES: No significant findings. IMPRESSION: 1. Compared to prior CT scan of 06/30/2024 there is further deterioration as described above with en larging size bilateral abscesses associated with bilateral maxillary dental extraction sites. There is also increasing amount of soft tissue induration-inflammatory involvement and skin thickening/cell ulitis appearance of the right-side of the face and this is now spread across the midline to involve the subcutaneous pre platysmal fat over the left side of the face-submandibular region. Called by myself to ER provider 07/02/2024 at 3:30 p.m. RADIATION DOSE DELIVERED: Total DLP DATA REPOSITORY: All CT scans at this facility are submitted to the National Radiology Data Registry (NRDR) Dose Index Registry (DIR) with the [employer] (A[employer]). RADIATION OPTIMIZATION: All CT scans at this facility use at least one of these dose optimization te chniques: automated exposure control; mA and/or kV adjustment per patient size (includes targeted exa ms where dose is matched to clinical indication); or iterative reconstruction.
[2024-07-02 14:22] LABS: Abs Immature Grans 0.05 10^3/uL (0.0-0.06); Absolute Basophil Count 0.04 10^3/uL (0.0-0.2); Absolute Eosinophil Count 0.12 10^3/uL (0.0-0.7); Absolute Monocyte Count 0.89 10^3/uL (0.1-0.8); Basophils % 0.4 %; Eosinophils % 1.2 %; HCT 43.8 % (40.0-50.0); HGB 15.2 g/dL (13.5-17.5); Immature Grans % 0.5 %; Lactate 0.8 mmol/L (0.6-1.4); Lymphocytes % 23.5 %; MCH 30.6 pg (27.0-33.0); MCHC 34.7 % (32.0-36.0); MCV 88 fL (80-95); MPV 9.1 fL (8.0-11.0); Monocytes % 9.1 %; Neutrophils % 65.3 %; Platelet Count 202 10^3/uL (130-400); RBC 4.97 10^6/uL (4.36-5.78); RDW 13.5 % (11.8-14.1); RDW-SD 43.6 fL
[2024-07-02] MEDS: Omnipaque 350 MG/ML 100 ML BTL IJ (14:34)
[2024-07-02] MEDS: Normal Saline - Diluent 50 ML VIAL IJ (14:35)
[2024-07-02 14:40] LABS: ALT 22 U/L (16-63); AST 15 U/L (15-37); Albumin 3.5 g/dL (3.4-5.0); Alkaline Phosphatase 109 U/L (46-116); BUN 30 mg/dL (7-18); Bilirubin, Total 0.79 mg/dL (0.2-1.0); CREATININE 1.2 mg/dL (0.70-1.30); Calcium 9.5 mg/dL (8.5-10.1); Chloride 99 mmol/L (98-107); Estimated GFR 69.23 (mL/min/1.73m2); Glucose 199 mg/dL (74-106); Potassium 3.9 mmol/L (3.5-5.1); Sodium 137 mmol/L (136-145); Total Protein 7.9 g/dL (6.4-8.2)
[2024-07-02] MEDS: CLINDAMYCIN 600 MG/50 ML BAG 100 MG IVPB (15:07)
[2024-07-02] MEDS: metroNIDAZOLE 500 MG/100 ML BAG 100 MG IVPB (15:39)
[2024-07-02 16:37] VITALS: BP 165/96; PULSE 95; RESP 16; TEMP 36.7; O2SAT 98
[2024-07-02 18:50] VITALS: BP 165/96; PULSE 95; RESP 16; TEMP 36.7; O2SAT 98
[2024-07-02 19:10] VITALS: BP 165/96; PULSE 95; RESP 16; TEMP 36.7; O2SAT 98
== END 2024-07-02 18:50 | disposition short-term general hospital (02) ==
PROVIDERS: Emergency Provider Registered Nurse Emergency; PCP Family Medicine
DX: R68.84 Jaw pain (principal); K04.7 Periapical abscess without sinus
CPT/HCPCS: 36415; 40800; 70491; 80053; 96365; 96367; 99285; 83605; 85025; J0737; J1836; J3490

== ENCOUNTER 2024-08-20 19:33 | Emergency (ER) | payer MEDICARE, MEDICAID, SELFPAY ==
[2024-08-20] VITALS (43 sets, daily range): BP systolic 128–172; BP diastolic 82–129; PULSE 98–126; RESP 13–35; TEMP 36.5; O2SAT 92–98
--- NOTE | 2024-08-20 19:30 | RT.EKG_ITS ---
APPROVED REPORT Exam: Resting ECG Reason for Exam: short of breath Patient Location: E HR:117 bpm ECG Measurements Heart Rate 117 AXIS TN [id number] P [id number] QRSd 120 QRS -61 QT 327 T 81 QTc 456 Conclusion Atrial fibrillation...V-rate 115-119, irreg A-activity Left anterior fascicular block...axis(240,-40), init forces inf Physician: no stemi
--- NOTE | 2024-08-20 19:30 | DI.RAD_ITS ---
Exam(s) XR PORTABLE CHEST AP EXAM: XR PORTABLE CHEST AP CLINICAL HISTORY: sob, cough, eval for pneumonia TECHNIQUE: 2D digital imaging was performed. COMPARISON: CR,XR XR CHEST 2V PA LATERAL from 06/30/2024 FINDINGS: LUNGS: Clear. No pleural abnormality seen. HEART: Normal size. AORTA: Normal diameter. BONES: Unremarkable for age. Soft tissues: Unremarkable. IMPRESSION: No acute findings. DATA REPOSITORY: RADIATION DOSE DELIVERED:
--- NOTE | 2024-08-20 19:44 | ED.GENADUL_ITS ---
Discharge Plan Disposition Patient Disposition: Home Condition: Good Discharge Details Clinical Impression: Asthma, Hyperglycemia, Dehydration Primary Care Provider: Oscar Weinstein ED Provider: Jaime Taylor Home Meds and New Rx's Prescriptions: No Action cyanocobalamin (vitamin B-12) 1,000 mcg tablet 1,000 mcg PO DAILY Qty: 90 3RF nitroglycerin 0.4 mg tablet, sublingual 0.4 mg SL Q5M MDD 3 doses PRN (Reason: chest pain) Qty: 30 0RF Rx Instructions: Take 0.4 mg every 5 minutes up to 3 doses; seek emergent medical care if no relief insulin degludec [Tresiba FlexTouch U-100] 100 unit/mL (3 mL) insulin pen 63 unit subcut QHS Ozempic 2 mg/dose (8 mg/3 mL) pen injector 2 mg subcut QWEEK Qty: 3 0RF bupropion HCl 150 mg tablet extended release 24 hr 300 mg PO QAM Qty: 180 3RF Rx Instructions: Dose increased 07/2022 Jardiance 25 mg tablet See Rx Instructions .ROUTE .COMPLEX Qty: 90 3RF Dose Instruction: TAKE 1 TABLET BY MOUTH DAILY Rx Instructions: TAKE 1 TABLET BY MOUTH DAILY lisinopril 2.5 mg tablet 2.5 mg PO DAILY Qty: 90 3RF magnesium oxide 400 mg (241.3 mg magnesium) tablet 400 mg PO DAILY Qty: 90 3RF metformin 1,000 mg tablet 1,000 mg PO BID Qty: 180 3RF Rx Instructions: metoprolol succinate 50 mg tablet extended release 24 hr 50 mg PO DAILY Qty: 90 3RF midodrine 10 mg tablet 10 mg PO TID Qty: 90 3RF Rx Instructions: do not give last dose of day after 6PM or within 4 hrs of bedtime pantoprazole 40 mg tablet,delayed release (DR/EC) See Rx Instructions .ROUTE .COMPLEX Qty: 90 3RF Dose Instruction: TAKE 1 TABLET BY MOUTH EVERY MORNING AT LEAST 30 MINUTES BEFORE FIRST MEAL Rx Instructions: TAKE 1 TABLET BY MOUTH EVERY MORNING AT LEAST 30 MINUTES BEFORE FIRST MEAL rosuvastatin [Crestor] 40 mg tablet 40 mg PO HS Qty: 90 3RF Rx Instructions: FOR CHOLESTEROL & HEART PROTECTION spironolactone 25 mg tablet 12.5 mg PO DAILY Qty: 45 3RF (DME) lancets Misc See Rx Instructions .ROUTE .MEDSUPPLY Qty: 400 3RF Rx Instructions: As directed to check blood glucose four times daily. On insulin. Dispense covered brand. (DME) pen needle, diabetic [BD Ultra-Fine Short Pen Needle] 31 gauge x 5/16 needle See Rx Instructions .ROUTE .COMPLEX Qty: 400 3RF Dose Instruction: USE ONCE DAILY TO ADMINISTER LANTUS Rx Instructions: Use as directed to administer insulin 4 times daily. (DME) Blood Glucose Test Strip See Rx Instructions .ROUTE .MEDSUPPLY Qty: 400 3RF Rx Instructions: As directed to check blood glucose QID. On insulin. Dispense covered brand. alcohol swabs [Alcohol Pads] Pads, Medicated 1 pad topical QID Qty: 400 3RF clopidogrel 75 mg tablet See Rx Instructions .ROUTE .COMPLEX Qty: 90 0RF Dose Instruction: TAKE 1 TABLET BY MOUTH DAILY Patient Comments: Pt. states his PCP IS aware he has been off this medication for 2 weeks Rx Instructions: TAKE 1 TABLET BY MOUTH DAILY insulin aspart U-100 [Novolog FlexPen U-100 Insulin] 100 unit/mL (3 mL) insu miko pen See Rx Instructions subcut AC Qty: 45 3RF Rx Instructions: 12-16 units per sliding scale subcut before meals; isosorbide mononitrate 30 mg tablet extended release 24 hr See Rx Instructions .ROUTE .COMPLEX Qty: 28 11RF Dose Instruction: TAKE 1 TABLET BY MOUTH DAILY Rx Instructions: TAKE 1 TABLET BY MOUTH DAILY sertraline [Zoloft] 100 mg tablet 200 mg PO DAILY Qty: 180 3RF (DME) lancing device with lancets Kit See Rx Instructions .Route Qty: 1 0RF Rx Instructions: Check blood sugars QID DX: E11.9. He is insulin dependent DM. cholecalciferol (vitamin D3) 25 mcg (1,000 unit) tablet 2,000 mcg PO DAILY Qty: 60 0RF (DME) FreeStyle Flako 3 Sensor Device See Rx Instructions .Route Qty: 6 12RF Rx Instructions: DX: E11.9. Insulin Dependent DM type II. Keep A1c below 7. Discharge Instructions Instructions: Asthma in adults Additional Instructions: At this time we have been able to get your blood sugar back down to a much more normal level. Please continue to take your regular insulin. Please drink plenty fluids and stay well-hydrated. Your heart workup has returned normal. Your chest x-ray shows no evidence of pneumonia. I do believe that you are having a mild exacerbation of asthma. Your COVID flu and RSV testing is normal. Please take the record inhaler that we provided as directed, 2 puffs every 12 hours for the next week. If you notice any worsening of your symptoms, or any new symptoms such as vomiting, diarrhea, fever, chills, shortness of breath, chest pain, numbness, weakness, or fainting , please return immediately to the emergency department for reevaluation. Please follow up with your primary care provider as soon as possible for reassessment and reevaluation. As always, it was a pleasure participating in your medical care today. Referrals: Oscar Weinstein DO [Primary Care Provider] - [facility] General Date/Time Provider Initiated Documentation: 08/20/24 19:39 . HPI Narrative: 58-year-old male with a past medical history of coronary artery disease with a stent, hypertension, high cholesterol, diabetes, who presents today for evaluation of cough. Patient states that for the last 2 days he has had a mild cough, he is also missed some insulin doses here and there, and noticed that his blood sugar was up. He also admits to right arm tingling that occurs positionally when he lays on his right hand side. He denies any significant chest pain. He denies any recent long trips surgeries or procedures. He states that this feels different than his previous cardiac episodes. He denies any other complaints at this time. He denies any fever or chills at home. He denies any exertional chest pain. No other complaints at this time. No other modifying factors. Related Data Home Medications ?Medication ?Instructions ?Recorded ?Confirmed blood sugar diagnostic (Blood #400 ea 06/22/19 08/20/24 Glucose Test strips) lancets #400 ea 04/24/20 08/20/24 alcohol swabs (Alcohol Pads) 1 pad topical QID Prior to 08/08/20 08/20/24 administering insulin for diabetes #400 ea clopidogrel 75 mg tablet See Rx Instructions .Route 07/06/22 08/20/24 .COMPLEX #90 tabs insulin aspart U-100 100 unit/mL See Rx Instructions subcut AC #45 01/19/23 08/20/24 (3 mL) subcutaneous pen (Novolog mL FlexPen U-100 Insulin aspart) pen needle, diabetic 31 gauge x #400 ea 02/25/23 08/20/24 5/16 (BD Ultra-Fine Short Pen Needle) cyanocobalamin (vitamin B-12) 1,000 mcg PO DAILY #90 tab-caps 06/30/23 08/20/24 1,000 mcg tablet isosorbide mononitrate 30 mg See Rx Instructions .Route 11/24/23 08/20/24 tablet,extended release 24 hr .COMPLEX #28 tabs sertraline 100 mg tablet (Zoloft) 200 mg (2 x 100 mg) PO DAILY #180 12/13/23 08/20/24 tab-caps nitroglycerin 0.4 mg sublingual 0.4 mg sublingual Q5M PRN chest 01/06/24 08/20/24 tablet pain #30 tab-caps lancing device with lancets kit #1 ea 01/23/24 08/20/24 cholecalciferol (vitamin D3) 25 2,000 mcg (80 x 25 mcg (1,000 01/26/24 08/20/24 mcg (1,000 unit) tablet unit)) PO DAILY #60 tabs insulin degludec 100 unit/mL (3 63 unit subcut QHS Dx: E11.9 to 04/06/24 08/20/24 mL) subcutaneous pen (Tresiba maintain HbA1c less than 7% FlexTouch U-100 insulin) blood-glucose sensor (FreeStyle #6 ea 06/22/24 08/20/24 Flako 3 Sensor device) bupropion HCl 150 mg 24 hr tablet, 300 mg (2 x 150 mg) PO QAM #180 07/12/24 08/20/24 extended release tabs empagliflozin 25 mg tablet See Rx Instructions .Route 07/12/24 08/20/24 (Jardiance) .COMPLEX #90 tabs lisinopril 2.5 mg tablet 2.5 mg PO DAILY #90 tabs 07/12/24 08/20/24 magnesium oxide 400 mg (241.3 mg 400 mg PO DAILY #90 tab-caps 07/12/24 08/20/24 magnesium) tablet metformin 1,000 mg tablet 1,000 mg PO BID diabetes #180 07/12/24 08/20/24 tab-caps metoprolol succinate 50 mg 50 mg PO DAILY #90 tab-caps 07/12/24 08/20/24 tablet,extended release 24 hr midodrine 10 mg tablet 10 mg PO TID #90 tabs 07/12/24 08/20/24 pantoprazole 40 mg tablet,delayed See Rx Instructions .Route 07/12/24 08/20/24 release .COMPLEX #90 tabs rosuvastatin 40 mg tablet (Crestor) 40 mg PO HS #90 tab-caps 07/12/24 08/20/24 semaglutide 2 mg/dose (8 mg/3 mL) 2 mg (0.75 mL) subcut QWEEK #3 mL 07/12/24 08/20/24 subcutaneous pen injector (Ozempic) spironolactone 25 mg tablet 12.5 mg (1/2 x 25 mg) PO DAILY #45 07/12/24 08/20/24 tab-caps Previous Rx's ?Medication ?Instructions ?Recorded blood sugar diagnostic (Blood #400 ea 06/22/19 Glucose Test strips) lancets #400 ea 04/24/20 alcohol swabs (Alcohol Pads) 1 pad topical QID Prior to 08/08/20 administering insulin for diabetes #400 ea clopidogrel 75 mg tablet See Rx Instructions .Route 07/06/22 .COMPLEX #90 tabs insulin aspart U-100 100 unit/mL See Rx Instructions subcut AC #45 01/19/23 (3 mL) subcutaneous pen (Novolog mL FlexPen U-100 Insulin aspart) pen needle, diabetic 31 gauge x #400 ea 02/25/23/16 (BD Ultra-Fine Short Pen Needle) cyanocobalamin (vitamin B-12) 1,000 mcg PO DAILY #90 tab-caps 06/30/23 1,000 mcg tablet isosorbide mononitrate 30 mg See Rx Instructions .Route 11/24/23 tablet,extended release 24 hr .COMPLEX #28 tabs sertraline 100 mg tablet (Zoloft) 200 mg (2 x 100 mg) PO DAILY #180 12/13/23 tab-caps nitroglycerin 0.4 mg sublingual 0.4 mg sublingual Q5M PRN chest 01/06/24 tablet pain #30 tab-caps lancing device with lancets kit #1 ea 01/23/24 cholecalciferol (vitamin D3) 25 2,000 mcg (80 x 25 mcg (1,000 01/26/24 mcg (1,000 unit) tablet unit)) PO DAILY #60 tabs blood-glucose sensor (FreeStyle #6 ea 06/22/24 Flako 3 Sensor device) bupropion HCl 150 mg 24 hr tablet, 300 mg (2 x 150 mg) PO QAM #180 07/12/24 extended release tabs empagliflozin 25 mg tablet See Rx Instructions .Route 07/12/24 (Jardiance) .COMPLEX #90 tabs lisinopril 2.5 mg tablet 2.5 mg PO DAILY #90 tabs 07/12/24 magnesium oxide 400 mg (241.3 mg 400 mg PO DAILY #90 tab-caps 07/12/24 magnesium) tablet metformin 1,000 mg tablet 1,000 mg PO BID diabetes #180 07/12/24 tab-caps metoprolol succinate 50 mg 50 mg PO DAILY #90 tab-caps 07/12/24 tablet,extended release 24 hr midodrine 10 mg tablet 10 mg PO TID #90 tabs 07/12/24 pantoprazole 40 mg tablet,delayed See Rx Instructions .Route 07/12/24 release .COMPLEX #90 tabs rosuvastatin 40 mg tablet (Crestor) 40 mg PO HS #90 tab-caps 07/12/24 semaglutide 2 mg/dose (8 mg/3 mL) 2 mg (0.75 mL) subcut QWEEK #3 mL 07/12/24 subcutaneous pen injector (Ozempic) spironolactone 25 mg tablet 12.5 mg (1/2 x 25 mg) PO DAILY #45 07/12/24 tab-caps Allergies Allergy/AdvReac Type Severity Reaction Status Date / Time bee venom protein (honey bee) Allergy Severe Swelling/Ed Verified 08/20/24 19:43 capri Penicillins Allergy Unknown Rash Verified 08/20/24 19:43 shellfish derived Allergy Unknown Rash; Verified 08/20/24 19:43 swelling General Stated Complaint: SOB/SuddenOnset VAN: 3 Review of Systems All systems reviewed & are unremarkable except as noted in HPI and below Exam Narrative Exam Narrative: 1.Const: Well-nourished, Well-developed, appearing stated age 2.Eyes: PERRL, no conjunctival injection, and symmetrical lids. 3.ENT: Atraumatic external nose and ears. Dry MM. Neck: Symmetric, trachea midline, No thyromegaly. 4.CVS: +S1/S2, No murmurs or gallops. Peripheral pulses 2+ and equal in all extremities. Brisk capillary refill in all extremities. 5.RESP: Unlabored respiratory effort. Clear to auscultation bilaterally except for a mild wheeze in the left lung field. 6.GI: Soft, Nontender/Nondistended, No hepatosplenomegaly. No guarding or rebound. 7.MSK: Normocephalic/Atraumatic, Extremities w/o deformity or ttp No cyanosis or clubbing, Normal movement of all extremities 8.Skin: Warm, Dry. No rashes or lesions. 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 Sensation grossly intact, no focal neurologic deficits. 10.Psych: (AAO) x3. Appropriate mood and affect Course Vital Signs Vital signs: Vital Signs Temperature 36.5 C 08/20/24 19:38 Pulse 119 H 08/20/24 19:38 Respiratory Rate 20 08/20/24 19:38 Blood Pressure 150/117 H 08/20/24 19:38 Pulse Oximetry 97 08/20/24 19:38 Temperature 36.5 C 08/20/24 19:38 Temperature Source Oral 08/20/24 19:38 Pulse 119 H 08/20/24 19:38 Respiratory Rate 20 08/20/24 19:38 Blood Pressure 150/117 H 08/20/24 19:38 Blood Pressure Position Supine 08/20/24 19:38 Pulse Oximetry 97 08/20/24 19:38 Oxygen Delivery Method Room Air 08/20/24 19:38 Oxygen Flow Rate 0 08/20/24 19:38 Pain Level 0 08/20/24 19:38 Medical Decision Making 58-year-old male with a past medical history of coronary artery disease with a stent, hypertension, high cholesterol, diabetes, who presents today for evaluation of cough. Patient states that for the last 2 days he has had a mild cough, he is also missed some insulin doses here and there, and noticed that his blood sugar was up. He also admits to right arm tingling that occurs positionally when he lays on his right hand side. He denies any significant chest pain. He denies any recent long trips surgeries or procedures. He states that this feels different than his previous cardiac episodes. He denies any other complaints at this time. He denies any fever or chills at home. He denies any exertional chest pain. No other complaints at this time. No other modifying factors. Exam demonstrates mild wheeze in the left lung field. No pitting edema lower extremities, no calf tenderness. Lungs are otherwise clear. No hypoxemia whatsoever. Blood glucose was drawn and noted to be greater than 500 on fingerstick. Concern for hyperglycemia, DKA less likely, HHNK on differential. Pneumonia is of concern, COVID flu and RSV as well. Reactive airway disease is high on the differential secondary to the presence of the wheeze. No tearing or ripping sensation in his chest to suggest dissection. No recent long trips surgeries procedure calf wall tenderness or pleuritic chest pain to suggest PE. We will evaluate for cardiac etiology, get a D-dimer, check for concerning infectious etiologies, monitor closely and reassess. 10:48 PM Patient was given a breathing treatment and steroids. He tolerated this well. His shortness of breath notably improved. Blood sugar was noted to be 681. Troponin normal and repeat troponin normal suggesting no signs of ischemia. D- dimer normal to rule out PE. Chest x-ray negative for acute process per radiology. No evidence of pneumonia. COVID flu and RSV negative. With the patient's notably elevated blood sugar at 680, decision was made to continue hydration and administer IV insulin. He was given a 0.1 unit/kg dose, tolerated this well. Repeat blood sugar dropped down to the high 300s, however he is still notably hyperglycemic. We will give an additional 500 cc bolus normal saline and repeat labs. Initial and repeat EKG showed no evidence of STEMI. We are pending third troponin for final rule out. Otherwise patient appears notably stable. We will continue to monitor closely and reassess. 11:55 PM On reassessment after fluids and insulin the patient's blood sugar is in the mid 300s now. He is feeling much better. Wheeze has resolved. We we will give a Symbicort inhaler for home use. Chest x-ray negative. Vital signs stable. Initial repeat and third troponin are all normal. Symptoms inconsistent with STEMI. EKGs do not show any evidence of STEMI. Patient stable for discharge. No evidence of DKA. pH status normal. Patient stable for discharge. Will recommend continued insulin use and hydration at home. Discussed red flags for which to return. I have extensively reviewed the treatment plan and discharge instructions with the patient. I have addressed all patient concerns at this time. The patient was made aware of what symptoms to monitor for that would warrant a return to the emergency department. Discussed the plan with the patient, they demonstrate verbal understanding and agreement with our assessment and plan at this time. The documentation in this chart was dictated using [employer] dictation software. Please excuse any dictation errors. FINDINGS: Tubes, catheters and devices: Cardiac leads superimposed over the chest. Lungs: No alveolar infiltrate. Pleural spaces: No pleural fluid collection. No pneumothorax. Heart/Mediastinum: Heart size within normal limits. Bones/joints: Unremarkable for patient age. IMPRESSION: No active pulmonary disease. Thank you for allowing us to participate in the care of your patient. Dictated and Authenticated by: Salvador Andersen MD 08/20/2024 8:47 PM Eastern Time ([place] & [place]) Quality:SDOH Health Related Social Needs: No Data to Display PFSH All Active Problems (Updated 08/20/24 @ 23:55 by Jaime Taylor DO) Dehydration (Acute) Hyperglycemia (Acute) Asthma (Chronic) Compression fracture of L1 vertebra (Acute) Orthostatic hypotension (Acute) Dizziness (Acute) Autonomic dysfunction with type 2 diabetes mellitus (Acute) Foot ulcer, left (Acute) Chest pain (Acute) Vitamin B12 deficiency (Acute) Subclinical hypothyroidism (Chronic ~02/2023) Monitor Chronic HFrEF (heart failure with reduced ejection fraction) (Chronic 07/20/18) 2018: LVEF 30-35% at presentation; most recent echo 07/24/2020: LVEF 40-45% Type 2 diabetes mellitus with hyperglycemia, with long-term current use of insulin (Chronic 11/25/15) ASCVD (arteriosclerotic cardiovascular disease) (Chronic 07/28/17) NSTEMI with HFrEF 07/11/2017 [place]ADONNA [place] [facility] [place]esity (Chronic[place] Hypomagnesemia (Chronic) Gastroesophageal reflux disease (Chronic) Microalbuminuria (Chronic) Callus of foot (Chronic) Type 2 diabetes mellitus with retinopathy, with long-term current use of insulin (Chronic 10/27/17) Restless leg syndrome (Chronic 10/31/14) Sleep Medicine Obstructive sleep apnea, adult (Chronic 10/31/14) Pt. states he has not been using device 09/01/20 Severe, C-pap, Dr. Almeida continue on CPAP therapy with mask of choice,heated humidification and ramp. pressure should be set at 12 cm/H2o,alternatively auto CPAP 8-14 cm/H2O can be used. (sleep study note cameron Nonproliferative diabetic retinopathy (Chronic) Noncompliance with medication regimen (Chronic 07/06/13) Hyperlipidemia (Chronic 07/06/13) Erectile dysfunction (Chronic 07/06/13) Essential hypertension (Chronic 07/06/13) Depression (Chronic 11/25/11) Sensorineural hearing loss, bilateral (Chronic 11/24/17) Conductive hearing loss in left ear (Acute) Medical History Kidney stones Intermittent gross hematuria Osteomyelitis Diabetic foot ulcer Tubular adenoma of colon (10/18/14) NSTEMI (non-ST elevated myocardial infarction) (07/11/17) 06/2017: [place] [facility] [place] minimum of 1 [place] Surgical History Lesion of oral mucosa 01/29/[address] Schuster. 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 No dysplasia. PAS stain negative for fungal organisms Colonoscopy - IV Sedation (10/14/14) tubular adenoma Dr. Blancas Cholecystectomy S/P coronary artery stent placement s/p MADONNA to LAD mid 2; Dr. 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 water tanker driver: No Do you feel safe at home: Yes Do you feel safe in your relationship?: Yes
[2024-08-20 20:18] LABS: BE (Venous) 0 mmol/L (-2-3); HCO3 (Venous) 25 mmol/L (23-28); O2 Sat (Venous) 84 %; TCO2 (Venous) 23 mmol/L (24-29); pCO2 (Venous) 44 mmHg (41-51); pH (Venous) 7.38 (7.31-7.41); pO2 (Venous) 52 mmHg
[2024-08-20 20:20] LABS: Abs Immature Grans 0.02 10^3/uL (0.0-0.06); Absolute Basophil Count 0.05 10^3/uL (0.0-0.2); Absolute Eosinophil Count 0.19 10^3/uL (0.0-0.7); Absolute Lymphocyte Count 2.19 10^3/uL (1.2-3.4); Absolute Monocyte Count 0.55 10^3/uL (0.1-0.8); Absolute Neutrophil Count 3.27 10^3/uL (1.2-6.7); Basophils % 0.8 %; HCT 44.2 % (40.0-50.0); Immature Grans % 0.3 %; Lymphocytes % 34.9 %; MCH 29.5 pg (27.0-33.0); MCHC 33.9 % (32.0-36.0); MCV 87 fL (80-95); MPV 9.6 fL (8.0-11.0); Monocytes % 8.8 %; Neutrophils % 52.2 %; Platelet Count 225 10^3/uL (130-400); RBC 5.08 10^6/uL (4.36-5.78); RDW 12.8 % (11.8-14.1); RDW-SD 40.9 fL; WBC 6.27 10^3/uL (4.4-10.8)
[2024-08-20] MEDS: Albuterol/Ipratropium 3 ML UPD VIAL UPD (20:29)
[2024-08-20] MEDS: Lactated Ringers 1,000 ML 1000 ML IV (20:29)
[2024-08-20] MEDS: methylPREDNISolone SUCC 125 MG VIAL IVP (20:30)
[2024-08-20 20:33] LABS: COVID-19 PCR Negative (Negative); Influenza A PCR Negative (Negative); Influenza B PCR Negative (Negative); RSV PCR Negative (Negative); Source Nasopharynx
[2024-08-20 20:47] LABS: ALT 25 U/L (16-63); AST 9 U/L (15-37); Albumin 3.7 g/dL (3.4-5.0); Alkaline Phosphatase 262 U/L (46-116); Anion Gap 11.3 mmol/L (3-11); BUN 30 mg/dL (7-18); Bilirubin, Total 0.37 mg/dL (0.2-1.0); CO2 24.7 mmol/L (21.0-32.0); CREATININE 1.4 mg/dL (0.70-1.30); Calcium 9.4 mg/dL (8.5-10.1); Chloride 92 mmol/L (98-107); Estimated GFR 57.54 (mL/min/1.73m2); NT-proBNP 207 pg/mL (<300); Potassium 4.5 mmol/L (3.5-5.1); Sodium 128 mmol/L (136-145); Total Protein 7.9 g/dL (6.4-8.2); Troponin I 36 ng/L (<or=76)
--- NOTE | 2024-08-20 20:48 | DI.VRAD_ITS ---
PROCEDURE INFORMATION: Exam: XR Chest Exam date and time: 08/20/2024 8:32 PM Age: 58 years old Clinical indication: Cough, SOB, eval for pneumonia TECHNIQUE: Imaging protocol: Radiologic exam of the chest. Views: 1 view. COMPARISON: CR XR CHEST 2V PA LATERAL 06/30/2024 9:21 PM FINDINGS: Tubes, catheters and devices: Cardiac leads superimposed over the chest. Lungs: No alveolar infiltrate. Pleural spaces: No pleural fluid collection. No pneumothorax. Heart/Mediastinum: Heart size within normal limits. Bones/joints: Unremarkable for patient age. IMPRESSION: No active pulmonary disease. Dictated and Authenticated by: Salvador Andersen MD. Ordering:STEVEN Sandoval MD
[2024-08-20 20:52] LABS: Glucose 681 mg/dL (74-106)
[2024-08-20] MEDS: Insulin REGULAR-Human 100 UNITS/ML UNIT 10 UNITS IV (21:11)
[2024-08-20 21:26] LABS: PTT Activated 29.4 sec (23.6-32.8); Prothrombin Time 10.4 sec (9.1-11.1)
[2024-08-20 21:41] LABS: D-Dimer 347 ng/mlFEU (<500)
[2024-08-20 22:24] LABS: Troponin I 36 ng/L (<or=76)
--- NOTE | 2024-08-20 22:30 | RT.EKG_ITS ---
APPROVED REPORT Exam: Resting ECG Reason for Exam: chest pain Patient Location: E HR:114 bpm ECG Measurements Heart Rate 114 AXIS PA 180 P 31 QRSd 110 QRS -60 QT 335 T 72 QTc 461 Conclusion Sinus tachycardia...rate> 99 Left anterior fascicular block...axis(240,-40), init forces inf Physician: no stemi
[2024-08-20] MEDS: Normal Saline 500 ML IV (22:49)
[2024-08-20 23:40] LABS: Anion Gap 9.5 mmol/L (3-11); BUN 27 mg/dL (7-18); CO2 26.5 mmol/L (21.0-32.0); CREATININE 1.2 mg/dL (0.70-1.30); Calcium 9.5 mg/dL (8.5-10.1); Chloride 99 mmol/L (98-107); Estimated GFR 69.23 (mL/min/1.73m2); Glucose 370 mg/dL (74-106); Potassium 4.6 mmol/L (3.5-5.1); Sodium 135 mmol/L (136-145)
[2024-08-20 23:46] LABS: Troponin I 38 ng/L (<or=76)
[2024-08-21] VITALS: PULSE 111; RESP 27; O2SAT 95
[2024-08-21 00:01] VITALS: BP 137/93; PULSE 109; RESP 22; O2SAT 94
[2024-08-21] MEDS: Inhaler, Assist Device 1 EACH MC (00:12)
[2024-08-21] MEDS: Budesonide/Formoterol 160/4.5 6 GM 60 PUFF INH IH (00:12)
== END 2024-08-21 00:13 | disposition home or self-care (01) ==
PROVIDERS: Emergency Provider Student in an Organized Health Care Education/Training Program; PCP Family Medicine
DX: J45.909 Unspecified asthma, uncomplicated (principal); R06.02 Shortness of breath; R05.1 Acute cough; E86.0 Dehydration; I10 Essential (primary) hypertension; E11.65 Type 2 diabetes mellitus with hyperglycemia
CPT/HCPCS: 36416; 80048; 80053; 82805; 82962; 87637; 93005; 94640; 96361; 96374; 99284; 71045; 83880; 84484; 85025; 85379; 85610; 85730; 93010; J1815; J2919; J7620

== ENCOUNTER 2024-09-20 01:52 | Outpatient (CLI) | payer MEDICARE, MEDICAID, SELFPAY ==
--- NOTE | 2024-09-20 11:05 | DI.CT_ITS ---
Exam(s) CT CHEST WO EXAM: CT CHEST WO CLINICAL HISTORY: cough,r05.1. TECHNIQUE: Imaging protocol: Axial computed tomography images were obtained and coronal and sagittal reformatted images were created and reviewed. Computer aided detection (CAD) was utilized. CONTRAST MATERIAL: Noncontrast COMPARISON: CT CT CHEST PE CTA from 05/15/2019 CR,XR XR PORTABLE CHEST AP from 08/20/2024 FINDINGS: Pulmonary parenchyma: No consolidation. No suspicious nodules. Stable tiny nodule left costophrenic angle. No follow-up recommended. Interstitial changes: None. Emphysema: None. Tracheobronchial tree: No mucous plugging. No bronchiectasis . Pleura: No effusion or pneumothorax. Heart: The heart is mildly dilated. The coronary arteries show moderate calcifications. Aorta: Thoracic aorta non-dilated. Mild atherosclerotic changes. Lymph nodes: No enlarged lymph nodes. Bones: Degenerative changes are seen. No evidence of compression fracture. Upper abdomen: Unremarkable. Soft tissues: Unremarkable. IMPRESSION: No acute abnormality. RADIATION DOSE DELIVERED: 370.21mGy.cm Total DLP 370.21mGy.cm Total DLP DATA REPOSITORY: All CT scans at this facility are submitted to the National Radiology Data Registry (NRDR) Dose Index Registry (DIR) with the [employer] (ACR). RADIATION OPTIMIZATION: All CT scans at this facility use at least one of these dose optimization te chniques: automated exposure control; mA and/or kV adjustment per patient size (includes targeted exa ms where dose is matched to clinical indication); or iterative reconstruction.
== END 2024-09-20 02:12 ==
PROVIDERS: PCP Family Medicine; Visit Provider Nurse Practitioner Family
DX: R05.1 Acute cough (principal)
CPT/HCPCS: 71250

== ENCOUNTER 2024-10-08 18:30 | Emergency (ER) | payer MEDICARE, MEDICAID, SELFPAY ==
[2024-10-08 18:41] VITALS: BP 148/87; PULSE 111; RESP 20; TEMP 36.6; O2SAT 97
== END 2024-10-08 19:38 | disposition left against medical advice (07) ==
LOC: ER 18:53
PROVIDERS: PCP Family Medicine
DX: Z53.21 Procedure and treatment not carried out due to patient leaving prior to being seen by health care provider (principal)

== ENCOUNTER → 2024-10-09 13:20 | Outpatient (BNVA) | payer MEDICARE, MEDICAID, SELFPAY | PROVIDERS: PCP Family Medicine; Referring Provider Family Medicine; Visit Provider Podiatrist | DX: E11.8 Type 2 diabetes mellitus with unspecified complications (principal); L97.511 Non-pressure chronic ulcer of other part of right foot limited to breakdown of skin; L60.3 Nail dystrophy; M79.672 Pain in left foot; I73.89 Other specified peripheral vascular diseases; B35.1 Tinea unguium; G62.9 Polyneuropathy, unspecified; R09.89 Other specified symptoms and signs involving the circulatory and respiratory systems; R60.0 Localized edema; L65.9 Nonscarring hair loss, unspecified; R23.8 Other skin changes; L60.2 Onychogryphosis; Z79.4 Long term (current) use of insulin | CPT/HCPCS: 11721; 97597; 99214 ==

== ENCOUNTER 2024-10-30 01:41 | Outpatient (CLI) | payer MEDICARE, MEDICAID, SELFPAY ==
--- NOTE | 2024-10-30 10:31 | DI.RAD_ITS ---
Exam(s) XR FOOT RT COMPLETE EXAM: XR FOOT RT COMPLETE CLINICAL HISTORY: Ulcer right hallux,l97.511. TECHNIQUE: 2D digital imaging was performed. Three views. COMPARISON: CR,XR XR FOOT RT COMPLETE from 07/22/2020 MR MR LOWER EXTREMITY RT WO/W from 08/26/2020 FINDINGS: BONES: No acute fracture is present. No bony destructive lesion is seen. Since the previous exam, th ere has ring been resection of the distal portions of the 2nd and 3rd metatarsals as well as resectio n of the bases of the proximal phalanges of the 2nd and 3rd toes. Multiple adjacent bony fragments. No suspicious or erosions. JOINTS: No dislocation present. Dorsal angulation at the 2nd and 3rd metatarsal phalangeal joints. SOFT TISSUE: Vascular calcifications. No foreign body. No abnormal gas collection. IMPRESSION: Postsurgical changes at the 2nd and 3rd MTP joints. No acute appearing bony erosions. DATA REPOSITORY: RADIATION DOSE DELIVERED:
--- NOTE | 2024-10-30 10:31 | DI.RAD_ITS ---
Exam(s) XR FOOT LT COMPLETE EXAM: XR FOOT LT COMPLETE CLINICAL HISTORY: Comparison views,pain lt foot, [id number]. TECHNIQUE: 2D digital imaging was performed. Three views. COMPARISON: None FINDINGS: BONES: No acute fracture is present. No bony destructive lesion is seen. [place] adjacent to the cu boid. JOINTS: No dislocation present. Hammertoe deformities. SOFT TISSUE: Vascular calcifications. No foreign body. IMPRESSION: Hammertoe deformities. DATA REPOSITORY: RADIATION DOSE DELIVERED:
== END 2024-10-30 02:01 ==
PROVIDERS: PCP Family Medicine; Visit Provider Podiatrist
DX: M79.672 Pain in left foot (principal); L97.511 Non-pressure chronic ulcer of other part of right foot limited to breakdown of skin
CPT/HCPCS: 73630

== ENCOUNTER → 2024-10-31 09:38 | Outpatient (BNVA) | payer MEDICARE, MEDICAID, SELFPAY | PROVIDERS: PCP Family Medicine; Referring Provider Podiatrist; Visit Provider Physical Therapy Assistant | DX: I73.9 Peripheral vascular disease, unspecified (principal) | CPT/HCPCS: 93922 ==

== ENCOUNTER 2024-11-05 21:46 | Emergency (ER) | payer MEDICARE, MEDICAID, SELFPAY ==
[2024-11-05 21:49] VITALS: BP 161/108; PULSE 102; RESP 15; TEMP 36.4; O2SAT 96
[2024-11-05 21:52] VITALS: BP 161/108; PULSE 102; RESP 15; TEMP 36.4; O2SAT 96
--- NOTE | 2024-11-05 22:06 | ED.GENADUL_ITS ---
Discharge Plan Disposition Patient Disposition: Home Condition: Good Discharge Details Clinical Impression: Cough Primary Care Provider: Oscar Weinstein ED Provider: Anson Chew Becket Meds and New Rx's Prescriptions: New famotidine 40 mg tablet 40 mg PO QHS Qty: 30 0RF Continued cyanocobalamin (vitamin B-12) 1,000 mcg tablet 1,000 mcg PO DAILY Qty: 90 3RF bupropion HCl 150 mg tablet extended release 24 hr 300 mg PO QAM Qty: 180 3RF Rx Instructions: Dose increased 07/2022 Jardiance 25 mg tablet See Rx Instructions .ROUTE .COMPLEX Qty: 90 3RF Dose Instruction: TAKE 1 TABLET BY MOUTH DAILY Rx Instructions: TAKE 1 TABLET BY MOUTH DAILY magnesium oxide 400 mg (241.3 mg magnesium) tablet 400 mg PO DAILY Qty: 90 3RF metformin 1,000 mg tablet 1,000 mg PO BID Qty: 180 3RF Rx Instructions: metoprolol succinate 50 mg tablet extended release 24 hr 50 mg PO DAILY Qty: 90 3RF midodrine 10 mg tablet 10 mg PO TID Qty: 90 3RF Rx Instructions: do not give last dose of day after 6PM or within 4 hrs of bedtime pantoprazole 40 mg tablet,delayed release (DR/EC) See Rx Instructions .ROUTE .COMPLEX Qty: 90 3RF Dose Instruction: TAKE 1 TABLET BY MOUTH EVERY MORNING AT LEAST 30 MINUTES BEFORE FIRST MEAL Rx Instructions: TAKE 1 TABLET BY MOUTH EVERY MORNING AT LEAST 30 MINUTES BEFORE FIRST MEAL rosuvastatin [Crestor] 40 mg tablet 40 mg PO HS Qty: 90 3RF Rx Instructions: FOR CHOLESTEROL & HEART PROTECTION spironolactone 25 mg tablet 12.5 mg PO DAILY Qty: 45 3RF Ozempic 2 mg/dose (8 mg/3 mL) pen injector 0.5 mg subcut QWEEK Qty: 3 0RF insulin degludec [Tresiba FlexTouch U-100] 100 unit/mL (3 mL) insulin pen 75 unit subcut QHS (DME) lancing device with lancets Kit See Rx Instructions .Route Qty: 1 0RF Rx Instructions: Check blood sugars QID DX: E11.9. He is insulin dependent DM. polyethylene glycol 3350 [Miralax] 17 gram/dose powder 17 g PO DAILY PRN (Reason: constipation) Qty: 119 0RF budesonide-formoterol [Symbicort] 160-4.5 mcg/actuation HFA aerosol inhaler 2 puff inhalation BID Qty: 10.2 0RF (DME) lancets Misc See Rx Instructions .ROUTE .MEDSUPPLY Qty: 400 3RF Rx Instructions: As directed to check blood glucose four times daily. On insulin. Dispense covered brand. (DME) pen needle, diabetic [BD Ultra-Fine Short Pen Needle] 31 gauge x 5/16 needle See Rx Instructions .ROUTE .COMPLEX Qty: 400 3RF Dose Instruction: USE ONCE DAILY TO ADMINISTER LANTUS Rx Instructions: Use as directed to administer insulin 4 times daily. ketoconazole 2 % cream 1 applic topical DAILY Qty: 120 6RF Rx Instructions: Apply to toenails once daily nitroglycerin 0.4 mg tablet, sublingual 0.4 mg SL Q5M MDD 3 doses PRN (Reason: chest pain) Qty: 30 0RF Rx Instructions: Take 0.4 mg every 5 minutes up to 3 doses; seek emergent medical care if no relief (DME) Blood Glucose Test Strip See Rx Instructions .ROUTE .MEDSUPPLY Qty: 400 3RF Rx Instructions: As directed to check blood glucose QID. On insulin. Dispense covered brand. alcohol swabs [Alcohol Pads] Pads, Medicated 1 pad topical QID Qty: 400 3RF clopidogrel 75 mg tablet See Rx Instructions .ROUTE .COMPLEX Qty: 90 0RF Dose Instruction: TAKE 1 TABLET BY MOUTH DAILY Patient Comments: Pt. states his PCP IS aware he has been off this medication for 2 weeks Rx Instructions: TAKE 1 TABLET BY MOUTH DAILY insulin aspart U-100 [Novolog FlexPen U-100 Insulin] 100 unit/mL (3 mL) insulin pen See Rx Instructions subcut AC Qty: 45 3RF Rx Instructions: 12-16 units per sliding scale subcut before meals; isosorbide mononitrate 30 mg tablet extended release 24 hr See Rx Instructions .ROUTE .COMPLEX Qty: 28 11RF Dose Instruction: TAKE 1 TABLET BY MOUTH DAILY Rx Instructions: TAKE 1 TABLET BY MOUTH DAILY sertraline [Zoloft] 100 mg tablet 200 mg PO DAILY Qty: 180 3RF cholecalciferol (vitamin D3) 25 mcg (1,000 unit) tablet 2,000 mcg PO DAILY Qty: 60 0RF (DME) FreeStyle Flako 3 Sensor Device See Rx Instructions .Route Qty: 6 12RF Rx Instructions: DX: E11.9. Insulin Dependent DM type II. Keep A1c below 7. (DME) Diabetic Shoes See Rx Instructions .Route .MEDSUPPLY Qty: 1 0RF Rx Instructions: As directed Held lisinopril 2.5 mg tablet 2.5 mg PO DAILY Qty: 90 3RF Hold Instructions: Changed by Provider Discharge Instructions Additional Instructions: You were seen in the ED for continued cough since the end of July. Per our discussion it is possible that this is related to your reflux despite being on a good dose of pantoprazole. Please continue this medicine in the morning. Please continue to hold your lisinopril. Begin taking famotidine which I have provided a prescription for in the evening. It may help to raise the head of your bed but if not possible try to give yourself more of an upright position while sleeping. May also be helpful to have a humidifier in your room. Please follow-up with primary care in the next week or 2 to see how things are going. Return to ED if you are short of breath, develop persistent chest pain or exertional chest pain, lightheadedness or syncope, black or bloody stool. Referrals: Oscar Weinstein DO [Primary Care Provider] - HPI General Mode of arrival: ambulatory . Date/Time Provider Initiated Documentation: 11/05/24 21:55 . Limitations to Documentation: no limitations . Information obtained by: patient, RN notes reviewed and old records reviewed . HPI Narrative: Patient presents to ED with complaint of cough. Patient has had cough since the end of July. He had an initial ED visit at that time. He has subsequently followed up with primary care on a number of occasions. He continues to have a cough and is now having chest pain but only when he coughs. Nothing is really different but has been unable to sleep the last couple of nights because of coughing. His made him come to the ED. In regards to this cough it is dry and nonproductive. He denies any fever or cold symptoms. Maybe a little bit of runny nose. Cough only seems to bother him at night when he is trying to go to sleep. If he sleeps upright he seems to be better. Lying down precipitates the cough. During the day while he is outside and working he has no cough. He is able to cut, split, deliver almost 10 cords of wood a day without difficulty. He develops no chest pain or shortness of breath. On weekends when he is not working and at home does not notice any problems until nighttime, again associated with trying to lie down to sleep. He did stop taking lisinopril. He has been continued on budesonide-formoterol inhaler. He is on 40 mg of pantoprazole in the morning. Cough medicines including benzonatate, De La Garza's cough drops, [id number] cough medicine has not been helpful. Related Data Home Medications ?Medication ?Instructions ?Recorded ?Confirmed blood sugar diagnostic (Blood #400 ea 06/22/19 11/05/24 Glucose Test strips) lancets #400 ea 04/24/20 11/05/24 alcohol swabs (Alcohol Pads) 1 pad topical QID Prior to 08/08/20 11/05/24 administering insulin for diabetes #400 ea clopidogrel 75 mg tablet See Rx Instructions .Route 07/06/22 11/05/24 .COMPLEX #90 tabs insulin aspart U-100 100 unit/mL See Rx Instructions subcut AC #45 01/19/23 11/05/24 (3 mL) subcutaneous pen (Novolog mL FlexPen U-100 Insulin aspart) pen needle, diabetic 31 gauge x #400 ea 02/25/23 11/05/2404/05 (BD Ultra-Fine Short Pen Needle) cyanocobalamin (vitamin B-12) 1,000 mcg PO DAILY #90 tab-caps 06/30/23 11/05/24 1,000 mcg tablet isosorbide mononitrate 30 mg See Rx Instructions .Route 11/24/23 11/05/24 tablet,extended release 24 hr .COMPLEX #28 tabs sertraline 100 mg tablet (Zoloft) 200 mg (2 x 100 mg) PO DAILY #180 12/13/23 11/05/24 tab-caps cholecalciferol (vitamin D3) 25 2,000 mcg (80 x 25 mcg (1,000 01/26/24 11/05/24 mcg (1,000 unit) tablet unit)) PO DAILY #60 tabs blood-glucose sensor (FreeStyle #6 ea 06/22/24 11/05/24 Flako 3 Sensor device) bupropion HCl 150 mg 24 hr tablet, 300 mg (2 x 150 mg) PO QAM #180 07/12/24 11/05/24 extended release tabs empagliflozin 25 mg tablet See Rx Instructions .Route 07/12/24 11/05/24 (Jardiance) .COMPLEX #90 tabs lisinopril 2.5 mg tablet 2.5 mg PO DAILY #90 tabs 07/12/24 11/05/24 magnesium oxide 400 mg (241.3 mg 400 mg PO DAILY #90 tab-caps 07/12/24 11/05/24 magnesium) tablet metformin 1,000 mg tablet 1,000 mg PO BID diabetes #180 07/12/24 11/05/24 tab-caps metoprolol succinate 50 mg 50 mg PO DAILY #90 tab-caps 07/12/24 11/05/24 tablet,extended release 24 hr midodrine 10 mg tablet 10 mg PO TID #90 tabs 07/12/24 11/05/24 pantoprazole 40 mg tablet,delayed See Rx Instructions .Route 07/12/24 11/05/24 release .COMPLEX #90 tabs rosuvastatin 40 mg tablet (Crestor) 40 mg PO HS #90 tab-caps 07/12/24 11/05/24 spironolactone 25 mg tablet 12.5 mg (1/2 x 25 mg) PO DAILY #45 07/12/24 11/05/24 tab-caps semaglutide 2 mg/dose (8 mg/3 mL) 0.5 mg (0.1875 mL) subcut QWEEK #3 08/30/24 11/05/24 subcutaneous pen injector (Ozempic) mL insulin degludec 100 unit/mL (3 75 unit subcut QHS Dx: E11.9 to 09/06/24 11/05/24 mL) subcutaneous pen (Tresiba maintain HbA1c less than 7% FlexTouch U-100 insulin) lancing device with lancets kit #1 ea 09/06/24 11/05/24 polyethylene glycol 3350 17 17 g PO DAILY PRN constipation 09/06/24 11/05/24 gram/dose oral powder (Miralax) #119 grams budesonide-formoterol HFA 160 2 puff inhalation BID #10.2 grams 09/25/24 11/05/24 mcg-4.5 mcg/actuation aerosol inhaler (Symbicort) ketoconazole 2 % topical cream 1 applic topical DAILY #120 grams 10/09/24 11/05/24 Diabetic Shoes #1 ea 10/23/24 11/05/24 nitroglycerin 0.4 mg sublingual 0.4 mg sublingual Q5M PRN chest 10/23/24 11/05/24 tablet pain #30 tab-caps famotidine 40 mg tablet 40 mg PO QHS #30 tabs 11/05/24 Previous Rx's ?Medication ?Instructions ?Recorded blood sugar diagnostic (Blood #400 ea 06/22/19 Glucose Test strips) lancets #400 ea 04/24/20 alcohol swabs (Alcohol Pads) 1 pad topical QID Prior to 08/08/20 administering insulin for diabetes #400 ea clopidogrel 75 mg tablet See Rx Instructions .Route 07/06/22 .COMPLEX #90 tabs insulin aspart U-100 100 unit/mL See Rx Instructions subcut AC #45 01/19/23 (3 mL) subcutaneous pen (Novolog mL FlexPen U-100 Insulin aspart) pen needle, diabetic 31 gauge x #400 ea 02/25/2304/05 (BD Ultra-Fine Short Pen Needle) cyanocobalamin (vitamin B-12) 1,000 mcg PO DAILY #90 tab-caps 06/30/23 1,000 mcg tablet isosorbide mononitrate 30 mg See Rx Instructions .Route 11/24/23 tablet,extended release 24 hr .COMPLEX #28 tabs sertraline 100 mg tablet (Zoloft) 200 mg (2 x 100 mg) PO DAILY #180 12/13/23 tab-caps cholecalciferol (vitamin D3) 25 2,000 mcg (80 x 25 mcg (1,000 01/26/24 mcg (1,000 unit) tablet unit)) PO DAILY #60 tabs blood-glucose sensor (FreeStyle #6 ea 06/22/24 Flako 3 Sensor device) bupropion HCl 150 mg 24 hr tablet, 300 mg (2 x 150 mg) PO QAM #180 07/12/24 extended release tabs empagliflozin 25 mg tablet See Rx Instructions .Route 07/12/24 (Jardiance) .COMPLEX #90 tabs lisinopril 2.5 mg tablet 2.5 mg PO DAILY #90 tabs 07/12/24 magnesium oxide 400 mg (241.3 mg 400 mg PO DAILY #90 tab-caps 07/12/24 magnesium) tablet metformin 1,000 mg tablet 1,000 mg PO BID diabetes #180 07/12/24 tab-caps metoprolol succinate 50 mg 50 mg PO DAILY #90 tab-caps 07/12/24 tablet,extended release 24 hr midodrine 10 mg tablet 10 mg PO TID #90 tabs 07/12/24 pantoprazole 40 mg tablet,delayed See Rx Instructions .Route 07/12/24 release .COMPLEX #90 tabs rosuvastatin 40 mg tablet (Crestor) 40 mg PO HS #90 tab-caps 07/12/24 spironolactone 25 mg tablet 12.5 mg (1/2 x 25 mg) PO DAILY #45 07/12/24 tab-caps semaglutide 2 mg/dose (8 mg/3 mL) 0.5 mg (0.1875 mL) subcut QWEEK #3 08/30/24 subcutaneous pen injector ([employer] mL lancing device with lancets kit #1 ea 09/06/24 polyethylene glycol 3350 17 17 g PO DAILY PRN constipation 09/06/24 gram/dose oral powder (Miralax) #119 grams budesonide-formoterol HFA 160 2 puff inhalation BID #10.2 grams 09/25/24 mcg-4.5 mcg/actuation aerosol inhaler (Symbicort) ketoconazole 2 % topical cream 1 applic topical DAILY #120 grams 10/09/24 Diabetic Shoes #1 ea 10/23/24 nitroglycerin 0.4 mg sublingual 0.4 mg sublingual Q5M PRN chest 10/23/24 tablet pain #30 tab-caps famotidine 40 mg tablet 40 mg PO QHS #30 tabs 11/05/24 Allergies Allergy/AdvReac Type Severity Reaction Status Date / Time bee venom protein (honey bee) Allergy Severe Swelling/Ed Verified 11/05/24 21:53 capri Penicillins Allergy Unknown Rash Verified 11/05/24 21:53 shellfish derived Allergy Unknown Rash; Verified 11/05/24 21:53 swelling General Stated Complaint: RespSymp VAN: 3 Review of Systems Narrative: Per HPI Exam Narrative Exam Narrative: Const: WDWN male in NAD. VS per triage. HEENT: NC/AT. Normal facial exam. Normal OP. Neck: Supple. Trachea midline. Lungs: Normal respiratory effort. Lungs are clear. Cor: RRR without murmur. Neuro: A+O x 3. Normal speech, mentation, gait. Cranial nerves II - XII grossly intact. No gross motor or sensory deficit. Course Vital Signs Vital signs: Vital Signs Temperature 97.5 F L 11/05/24 21:49 Pulse 102 H 11/05/24 21:49 Respiratory Rate 15 11/05/24 21:49 Blood Pressure 161/108 H 11/05/24 21:49 Pulse Oximetry 96 11/05/24 21:49 Temperature 97.5 F L 11/05/24 21:52 Pulse 102 H 11/05/24 21:52 Respiratory Rate 15 11/05/24 21:52 Blood Pressure 161/108 H 11/05/24 21:52 Blood Pressure Position Sitting 11/05/24 21:52 Pulse Oximetry 96 11/05/24 21:52 Oxygen Delivery Method Room Air 11/05/24 21:52 Oxygen Flow Rate 0 11/05/24 21:52 Medical Decision Making Patient presenting to ED with continued cough for almost 3 months now. Has had clinic visits for same. Cough suppressants do not help. Discontinuing lisinopril has not seemed to help. Patient now having chest pain but only when coughing. Further delving into patient's history of his cough it appears to not bother him during the day or even the evening. Seems to begin once he lies down to try to sleep. States that if he remains upright and sleeps does not seem to have difficulty. Does note that it is very hot and dry in the house. Of note one of the thoughts from his primary care was possibility of reflux but given his 40 mg dosage of pantoprazole a day, this seemed to be less likely and discontinuation of lisinopril and continuation of his inhaler was first choice. He has subsequently had a CT of the chest which is clear. Given the history I have obtained it does seem that reflux is a very high possibility. It is possible that it is related to the dry hot air. We discussed raising the head of his bed up which she apparently is unable to do because of the way the bed is made. He will continue pantoprazole. He will take this in the morning. I will add famotidine for him to take at night. He will also try placing a humidifier in the room at night. Will have him follow-up with primary care in 1 to 2 weeks to see how he is doing with the cough. No imaging or laboratory studies obtained tonight given previous workup. His chest pain is only present when coughing and does not bother him at all during the day when he is very active. He has no shortness of breath. Will plan discharge with return precautions. Medical Records Medical records reviewed: Yes I reviewed the patient's medical records. Medical records narrative: Outpatient clinic notes and diagnostic tests PFSH All Active Problems Intermittent gross hematuria (Acute) Constipation (Acute) Cough (Acute) Onychomycosis (Acute) PAD (peripheral artery disease) (Acute) Pain in left foot (Acute) Ulcer of right foot limited to breakdown of skin (Acute) Compression fracture of L1 vertebra (Acute) Orthostatic hypotension (Acute) Dizziness (Acute) Foot ulcer, left (Acute) Vitamin B12 deficiency (Acute) Subclinical hypothyroidism (Chronic ~02/2023) Monitor Obesity (Chronic) Hypomagnesemia (Chronic) Microalbuminuria (Chronic) Callus of foot (Chronic) Type 2 diabetes mellitus with retinopathy, with long-term current use of insulin (Chronic 10/27/17) Restless leg syndrome (Chronic 10/31/14) Sleep Medicine Obstructive sleep apnea, adult (Chronic 10/31/14) Pt. states he has not been using device 09/01/20 Severe, C-pap, Dr. Almeida continue on CPAP therapy with mask of choice,heated humidification and ramp. pressure should be set at 12 cm/H2o,alternatively auto CPAP 8-14 cm/H2O can be used. (sleep study note cameron Nonproliferative diabetic retinopathy (Chronic) Noncompliance with medication regimen (Chronic 07/06/13) Erectile dysfunction (Chronic 07/06/13) Essential hypertension (Chronic 07/06/13) Depression (Chronic 11/25/11) Sensorineural hearing loss, bilateral (Chronic 11/24/17) Conductive hearing loss in left ear (Acute) Medical History ASCVD (arteriosclerotic cardiovascular disease) (07/28/17) NSTEMI with HFrEF 07/11/2017 s/p MADONNA to mLAD on 07/14/2017 at [facility] [place] Type 2 diabetes mellitus with hyperglycemia, with long-term current use of insulin (11/25/15) Hyperlipidemia (07/06/13) Gastroesophageal reflux disease Chronic HFrEF (heart failure with reduced ejection fraction) (07/20/18) 2018: LVEF 30-35% at presentation; most recent echo 07/24/2020: LVEF 40-45% PVD (peripheral vascular disease) Autonomic dysfunction with type 2 diabetes mellitus Peripheral neuropathy Kidney stones Osteomyelitis Diabetic foot ulcer Tubular adenoma of colon (10/18/14) NSTEMI (non-ST elevated myocardial infarction) (07/11/17) 06/2017: S/p MADONNA to mLAD at [facility] [place]; DAPT for a minimum of 1 year Surgical History Lesion of oral mucosa 01/29/[address] Schuster. 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 No dysplasia. PAS stain negative for fungal organisms Colonoscopy - IV Sedation (10/14/14) tubular adenoma Dr. Blancas Cholecystectomy S/P coronary artery stent placement s/p MADONNA to LAD mid 2; Dr. 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
== END 2024-11-05 22:43 | disposition home or self-care (01) ==
PROVIDERS: Emergency Provider Emergency Medicine; PCP Family Medicine
DX: R05.1 Acute cough (principal)
CPT/HCPCS: 99283

== ENCOUNTER 2024-11-14 16:10 | Inpatient (IN) | payer MEDICARE, MEDICAID, SELFPAY ==
[2024-11-14] VITALS (46 sets, daily range): BP systolic 129–193; BP diastolic 78–137; PULSE 92–109; RESP 17–34; TEMP 36.6–37.1; O2SAT 88–99
--- NOTE | 2024-11-14 16:15 | RT.EKG_ITS ---
APPROVED REPORT Exam: Resting ECG Reason for Exam: diabetes Patient Location: E HR:106 bpm ECG Measurements Heart Rate 106 AXIS ND 199 P 7 QRSd 121 QRS -55 QT 361 T 71 QTc 479 Conclusion Sinus tachycardia, rate 106 IVCD No STEMI No significant changes from priors
--- NOTE | 2024-11-14 16:23 | ED.GENADUL_ITS ---
Discharge Plan Disposition Patient Disposition: Admit to [facility] Condition: Stable Discharge Details Clinical Impression: Hyperosmolar hyperglycemic state (HHS) Primary Care Provider: Oscar Weinstein ED Provider: Jaime Brown Home Meds and New Rx's Prescriptions: No Action cyanocobalamin (vitamin B-12) 1,000 mcg tablet 1,000 mcg PO DAILY Qty: 90 3RF bupropion HCl 150 mg tablet extended release 24 hr 300 mg PO QAM Qty: 180 3RF Rx Instructions: Dose increased 07/2022 Jardiance 25 mg tablet See Rx Instructions .ROUTE .COMPLEX Qty: 90 3RF Dose Instruction: TAKE 1 TABLET BY MOUTH DAILY Rx Instructions: TAKE 1 TABLET BY MOUTH DAILY lisinopril 2.5 mg tablet 2.5 mg PO DAILY Qty: 90 3RF magnesium oxide 400 mg (241.3 mg magnesium) tablet 400 mg PO DAILY Qty: 90 3RF metformin 1,000 mg tablet 1,000 mg PO BID Qty: 180 3RF Rx Instructions: metoprolol succinate 50 mg tablet extended release 24 hr 50 mg PO DAILY Qty: 90 3RF midodrine 10 mg tablet 10 mg PO TID Qty: 90 3RF Rx Instructions: do not give last dose of day after 6PM or within 4 hrs of bedtime pantoprazole 40 mg tablet,delayed release (DR/EC) See Rx Instructions .ROUTE .COMPLEX Qty: 90 3RF Dose Instruction: TAKE 1 TABLET BY MOUTH EVERY MORNING AT LEAST 30 MINUTES BEFORE FIRST MEAL Rx Instructions: TAKE 1 TABLET BY MOUTH EVERY MORNING AT LEAST 30 MINUTES BEFORE FIRST MEAL rosuvastatin [Crestor] 40 mg tablet 40 mg PO HS Qty: 90 3RF Rx Instructions: FOR CHOLESTEROL & HEART PROTECTION spironolactone 25 mg tablet 12.5 mg PO DAILY Qty: 45 3RF Ozempic 2 mg/dose (8 mg/3 mL) pen injector 0.5 mg subcut QWEEK Qty: 3 0RF insulin degludec [Tresiba FlexTouch U-100] 100 unit/mL (3 mL) insulin pen 75 unit subcut QHS (DME) lancing device with lancets Kit See Rx Instructions .Route Qty: 1 0RF Rx Instructions: Check blood sugars QID DX: E11.9. He is insulin dependent DM. polyethylene glycol 3350 [Miralax] 17 gram/dose powder 17 g PO DAILY PRN (Reason: constipation) Qty: 119 0RF budesonide-formoterol [Symbicort] 160-4.5 mcg/actuation HFA aerosol inhaler 2 puff inhalation BID Qty: 10.2 0RF (DME) lancets Misc See Rx Instructions .ROUTE .MEDSUPPLY Qty: 400 3RF Rx Instructions: As directed to check blood glucose four times daily. On insulin. Dispense covered brand. (DME) pen needle, diabetic [BD Ultra-Fine Short Pen Needle] 31 gauge x 5/16 needle See Rx Instructions .ROUTE .COMPLEX Qty: 400 3RF Dose Instruction: USE ONCE DAILY TO ADMINISTER LANTUS Rx Instructions: Use as directed to administer insulin 4 times daily. ketoconazole 2 % cream 1 applic topical DAILY Qty: 120 6RF Rx Instructions: Apply to toenails once daily nitroglycerin 0.4 mg tablet, sublingual 0.4 mg SL Q5M MDD 3 doses PRN (Reason: chest pain) Qty: 30 0RF Rx Instructions: Take 0.4 mg every 5 minutes up to 3 doses; seek emergent medical care if no relief alcohol swabs [Alcohol Pads] Pads, Medicated 1 pad topical QID Qty: 400 3RF clopidogrel 75 mg tablet See Rx Instructions .ROUTE .COMPLEX Qty: 90 0RF Dose Instruction: TAKE 1 TABLET BY MOUTH DAILY Patient Comments: Pt. states his PCP IS aware he has been off this medication for 2 weeks Rx Instructions: TAKE 1 TABLET BY MOUTH DAILY insulin aspart U-100 [Novolog FlexPen U-100 Insulin] 100 unit/mL (3 mL) insulin pen See Rx Instructions subcut AC Qty: 45 3RF Patient Comments: pt has not been taking since jul due to lack of availability Rx Instructions: 12-16 units per sliding scale subcut before meals; isosorbide mononitrate 30 mg tablet extended release 24 hr See Rx Instructions .ROUTE .COMPLEX Qty: 28 11RF Dose Instruction: TAKE 1 TABLET BY MOUTH DAILY Rx Instructions: TAKE 1 TABLET BY MOUTH DAILY sertraline [Zoloft] 100 mg tablet 200 mg PO DAILY Qty: 180 3RF cholecalciferol (vitamin D3) 25 mcg (1,000 unit) tablet 2,000 mcg PO DAILY Qty: 60 0RF (DME) FreeStyle Flako 3 Sensor Device See Rx Instructions .Route Qty: 6 12RF Rx Instructions: DX: E11.9. Insulin Dependent DM type II. Keep A1c below 7. (DME) Diabetic Shoes See Rx Instructions .Route .MEDSUPPLY Qty: 1 0RF Rx Instructions: As directed (DME) blood-glucose meter [FreeStyle Lite Meter] Kit See Rx Instructions .Route Qty: 1 0RF Rx Instructions: Check blood sugar QID DX: E11.9. Keep A1c below 7 (DME) FreeStyle Lite Strips Strip See Rx Instructions .Route Qty: 100 2RF Rx Instructions: Check blood sugar QID. DX: E11.9. Keep A1c below 7 (DME) lancets [FreeStyle Lancets] 28 gauge misc See Rx Instructions .Route Qty: 100 2RF Rx Instructions: Check blood sugars QID. DX: E11.9. Keep A1c below 7. famotidine 40 mg tablet 40 mg PO QHS Qty: 30 0RF HPI General Date/Time Provider Initiated Documentation: 11/14/24 16:22 . HPI Narrative: 59 year-old male presents to ED today by POV/ambulating with a chief complaint of has been facing bureaucratic obstacles with insurance, and PCP- has not had test strips or glucose sensors since July- PCP last contact two weeks ago who said they would help him get test strips. Quality described as polyuria, no radiation to confusion, intractable nausea/vomiting, fever, cough, abdominal pain, endorses he had some moonshine for work today. Severity is described as not painful. Palliating factors include nothing specific attempted. Provoking factors include nothing specific. Patient not anticoagulated. Related Data Home Medications ?Medication ?Instructions ?Recorded ?Confirmed lancets #400 ea 04/24/20 11/05/24 alcohol swabs (Alcohol Pads) 1 pad topical QID Prior to 08/08/20 11/14/24 administering insulin for diabetes #400 ea clopidogrel 75 mg tablet See Rx Instructions .Route 07/06/22 11/14/24 .COMPLEX #90 tabs insulin aspart U-100 100 unit/mL See Rx Instructions subcut AC #45 01/19/23 11/14/24 (3 mL) subcutaneous pen (Novolog mL FlexPen U-100 Insulin aspart) pen needle, diabetic 31 gauge x #400 ea 02/25/23 11/05/24/16 (BD Ultra-Fine Short Pen Needle) cyanocobalamin (vitamin B-12) 1,000 mcg PO DAILY #90 tab-caps 06/30/23 11/14/24 1,000 mcg tablet isosorbide mononitrate 30 mg See Rx Instructions .Route 11/24/23 11/14/24 tablet,extended release 24 hr .COMPLEX #28 tabs sertraline 100 mg tablet (Zoloft) 200 mg (2 x 100 mg) PO DAILY #180 12/13/23 11/14/24 tab-caps cholecalciferol (vitamin D3) 25 2,000 mcg (80 x 25 mcg (1,000 01/26/24 11/14/24 mcg (1,000 unit) tablet unit)) PO DAILY #60 tabs blood-glucose sensor (FreeStyle #6 ea 06/22/24 11/05/24 Flako 3 Sensor device) bupropion HCl 150 mg 24 hr tablet, 300 mg (2 x 150 mg) PO QAM #180 07/12/24 11/14/24 extended release tabs empagliflozin 25 mg tablet See Rx Instructions .Route 07/12/24 11/14/24 (Jardiance) .COMPLEX #90 tabs lisinopril 2.5 mg tablet 2.5 mg PO DAILY #90 tabs 07/12/24 11/14/24 magnesium oxide 400 mg (241.3 mg 400 mg PO DAILY #90 tab-caps 07/12/24 11/14/24 magnesium) tablet metformin 1,000 mg tablet 1,000 mg PO BID diabetes #180 07/12/24 11/14/24 tab-caps metoprolol succinate 50 mg 50 mg PO DAILY #90 tab-caps 07/12/24 11/14/24 tablet,extended release 24 hr midodrine 10 mg tablet 10 mg PO TID #90 tabs 07/12/24 11/14/24 pantoprazole 40 mg tablet,delayed See Rx Instructions .Route 07/12/24 11/14/24 release .COMPLEX #90 tabs rosuvastatin 40 mg tablet (Crestor) 40 mg PO HS #90 tab-caps 07/12/24 11/14/24 spironolactone 25 mg tablet 12.5 mg (1/2 x 25 mg) PO DAILY #45 07/12/24 11/14/24 tab-caps semaglutide 2 mg/dose (8 mg/3 mL) 0.5 mg (0.1875 mL) subcut QWEEK #3 08/30/24 11/14/24 subcutaneous pen injector (Ozempic) mL insulin degludec 100 unit/mL (3 75 unit subcut QHS Dx: E11.9 to 09/06/24 11/14/24 mL) subcutaneous pen (Tresiba maintain HbA1c less than 7% FlexTouch U-100 insulin) lancing device with lancets kit #1 ea 09/06/24 11/05/24 polyethylene glycol 3350 17 17 g PO DAILY PRN constipation 09/06/24 11/14/24 gram/dose oral powder (Miralax) #119 grams budesonide-formoterol HFA 160 2 puff inhalation BID #10.2 grams 09/25/24 11/14/24 mcg-4.5 mcg/actuation aerosol inhaler (Symbicort) ketoconazole 2 % topical cream 1 applic topical DAILY #120 grams 10/09/24 11/14/24 Diabetic Shoes #1 ea 10/23/24 11/05/24 nitroglycerin 0.4 mg sublingual 0.4 mg sublingual Q5M PRN chest 10/23/24 11/14/24 tablet pain #30 tab-caps famotidine 40 mg tablet 40 mg PO QHS #30 tabs 11/05/24 11/14/24 blood sugar diagnostic (FreeStyle #100 ea 11/09/24 Lite Strips) blood-glucose meter (FreeStyle #1 ea 11/09/24 Lite Meter kit) lancets 28 gauge (FreeStyle #100 ea 11/09/24 Lancets) Previous Rx's ?Medication ?Instructions ?Recorded lancets #400 ea 04/24/20 alcohol swabs (Alcohol Pads) 1 pad topical QID Prior to 08/08/20 administering insulin for diabetes #400 ea clopidogrel 75 mg tablet See Rx Instructions .Route 07/06/22 .COMPLEX #90 tabs insulin aspart U-100 100 unit/mL See Rx Instructions subcut AC #45 01/19/23 (3 mL) subcutaneous pen (Novolog mL FlexPen U-100 Insulin aspart) pen needle, diabetic 31 gauge x #400 ea 02/25/2304/05 (BD Ultra-Fine Short Pen Needle) cyanocobalamin (vitamin B-12) 1,000 mcg PO DAILY #90 tab-caps 06/30/23 1,000 mcg tablet isosorbide mononitrate 30 mg See Rx Instructions .Route 11/24/23 tablet,extended release 24 hr .COMPLEX #28 tabs sertraline 100 mg tablet (Zoloft) 200 mg (2 x 100 mg) PO DAILY #180 12/13/23 tab-caps cholecalciferol (vitamin D3) 25 2,000 mcg (80 x 25 mcg (1,000 01/26/24 mcg (1,000 unit) tablet unit)) PO DAILY #60 tabs blood-glucose sensor (FreeStyle #6 ea 06/22/24 Flako 3 Sensor device) bupropion HCl 150 mg 24 hr tablet, 300 mg (2 x 150 mg) PO QAM #180 07/12/24 extended release tabs empagliflozin 25 mg tablet See Rx Instructions .Route 07/12/24 (Jardiance) .COMPLEX #90 tabs lisinopril 2.5 mg tablet 2.5 mg PO DAILY #90 tabs 07/12/24 magnesium oxide 400 mg (241.3 mg 400 mg PO DAILY #90 tab-caps 07/12/24 magnesium) tablet metformin 1,000 mg tablet 1,000 mg PO BID diabetes #180 07/12/24 tab-caps metoprolol succinate 50 mg 50 mg PO DAILY #90 tab-caps 07/12/24 tablet,extended release 24 hr midodrine 10 mg tablet 10 mg PO TID #90 tabs 07/12/24 pantoprazole 40 mg tablet,delayed See Rx Instructions .Route 07/12/24 release .COMPLEX #90 tabs rosuvastatin 40 mg tablet (Crestor) 40 mg PO HS #90 tab-caps 07/12/24 spironolactone 25 mg tablet 12.5 mg (1/2 x 25 mg) PO DAILY #45 07/12/24 tab-caps semaglutide 2 mg/dose (8 mg/3 mL) 0.5 mg (0.1875 mL) subcut QWEEK #3 08/30/24 subcutaneous pen injector (Ozempic) mL lancing device with lancets kit #1 ea 09/06/24 polyethylene glycol 3350 17 17 g PO DAILY PRN constipation 09/06/24 gram/dose oral powder (Miralax) #119 grams budesonide-formoterol HFA 160 2 puff inhalation BID #10.2 grams 09/25/24 mcg-4.5 mcg/actuation aerosol inhaler (Symbicort) ketoconazole 2 % topical cream 1 applic topical DAILY #120 grams 10/09/24 Diabetic Shoes #1 ea 10/23/24 nitroglycerin 0.4 mg sublingual 0.4 mg sublingual Q5M PRN chest 10/23/24 tablet pain #30 tab-caps famotidine 40 mg tablet 40 mg PO QHS #30 tabs 11/05/24 blood sugar diagnostic (FreeStyle #100 ea 11/09/24 Lite Strips) blood-glucose meter (FreeStyle #1 ea 11/09/24 Lite Meter kit) lancets 28 gauge (FreeStyle #100 ea 11/09/24 Lancets) Allergies Allergy/AdvReac Type Severity Reaction Status Date / Time bee venom protein (honey bee) Allergy Severe Swelling/Ed Verified 11/14/24 18:06 capri Penicillins Allergy Unknown Rash Verified 11/14/24 18:06 shellfish derived Allergy Unknown Rash; Verified 11/14/24 18:06 swelling General Stated Complaint: Diabetes VAN: 2 Review of Systems All systems reviewed & are unremarkable except as noted in HPI and below Exam Narrative Exam Narrative: GENERAL APPEARANCE: Obese, non-toxic, awake and alert, atraumatic, no acute distress. SKIN: Warm, pink, dry, intact, without rashes/lesions/ulcerations. HEAD: Normocephalic, atraumatic, normal hair distribution for gender/age. EYES: Normal conjunctiva, no exudates on lids/lashes. ENT: Nares patent, no circumoral cyanosis, no facial swelling NECK: Supple, trachea midline, painless cervical ROM. LUNGS/CHEST: Lungs CTA bilaterally- no overt rales at bases, no wheezing, non- labored respirations, normal A/P diameter, symmetrical expansion, no chest wall deformity HEART (CV/PV): Regular rate and rhythm without murmur, no peripheral edema, no JVD. ABDOMEN: Soft, non-distended, no guarding, nontender. MSK: Normal ROM, no swelling/deformity to bilateral UEs or LEs, moving all extremities without weakness, no cyanosis, spine midline without tenderness, normal curvature. NEURO: Mental Status AAOx4 - alert to person, place, time, events No facial droop, no forehead involvement. Motor: No focal weakness - strength 5/5 in bilateral UEs and LEs, proximal and distal, symmetric. Sensory: sensation intact to light touch globally. Gait normal: patient ambulated without ataxia into ED room. PSYCH: euthymic, cooperative, pleasant, appropriate speech Course Vital Signs Vital signs: Vital Signs Temperature 37.0 C 11/14/24 16:17 Pulse 105 H 11/14/24 16:17 Respiratory Rate 18 11/14/24 16:17 Blood Pressure 179/100 H 11/14/24 16:17 Pulse Oximetry 97 11/14/24 16:17 Temperature 37.0 C 11/14/24 16:17 Temperature Source Temporal Artery Scan 11/14/24 16:17 Pulse 105 H 11/14/24 16:17 Respiratory Rate 18 11/14/24 16:17 Blood Pressure 179/100 H 11/14/24 16:17 Blood Pressure Position Supine 11/14/24 16:17 Pulse Oximetry 97 11/14/24 16:17 Oxygen Delivery Method Room Air 11/14/24 16:17 Oxygen Flow Rate 0 11/14/24 16:17 Pain Level 0 11/14/24 16:17 Medical Decision Making This dictation utilizes [id number] dictation software and may contain unedited grammatical errors. 59 year-old male presents to ED today by POV/ambulating with a chief complaint of has been facing bureaucratic obstacles with insurance, and PCP- has not had test strips or glucose sensors since July- PCP last contact two weeks ago who said they would help him get test strips. Quality described as polyuria, no radiation to confusion, intractable nausea/vomiting, fever, cough, abdominal pain, endorses he had some moonshine for work today. Severity is described as not painful. Palliating factors include nothing specific attempted. Provoking factors include nothing specific. Patients' medical history: Atherosclerosis, T2DM, hyperlipidemia, GERD, CHF, PVD, peripheral neuropathy, kidney stones, osteomyelitis, diabetic foot ulcer, history of NSTEMI, PAD, obesity, hypertension, medication noncompliance. Family and social history: Lives independently, endorses some intake moonshine this evening for [place] with his family, denies illicit substance use. Pertinent exam findings / vital signs include benign abdomen, tachycardic, lungs CTA, nondiaphoretic. Differential / pathologies of concern include DKA, HHS, electrolyte derangement, dehydration. Diagnostic studies of: -CBC, CMP, VBG, urinalysis, EKG, BNP, troponin, lipase, TSH, urinalysis. -CBC is benign without any anemia -VBG shows no acidosis, show low pCO2, low total CO2 -Lactate 5.0 -CMP shows an initial sodium of 124, hypochloremia, gap of 15 with an MUSHTAQ to 1.7 of creatinine, initial sugars 880, potassium normal -BNP is elevated, Trope negative -EKG without signs of hyperkalemia -TSH within normal limits -Lipase negative -UA shows no signs of infection Interventions of: -1L IVF NS bolus @ 500mL/hr due to CHF history, 2nd liter should go in slower at 250mL/hr with patients RR increasing to 26 breaths/min. ED Course/Assessment/Plan: 59-year-old male presents with medication noncompliance since July for his diabetes medications states he has not checked his blood sugar since July, he denies confusion, sweatiness, jitters he does endorse being very thirsty, he was found to have a glucose of 880 with no acidosis indicating a likely hyperosmolar hyperglycemic state, patient likely needs fluids slowly because of his low sodium. I provided 2 L of IV fluids with recheck at around 1700 mL which showed improvement of his glucose to 629. I spoke with Dr. Fercho Brewster who accepted the patient graciously for floor he requests 10 units of subcu regular insulin and will likely give every 2 hours short acting insulins and continue to hydrate the patienton medical surgical [place]. Findings not consistent with DKA, need for ICU or insulin drip care. Disposition of Hyperosmolar hyperglycemic state (HHS). Patient verbalized understanding of the plan and return to ED criteria and engaged in shared decision making. Medical Records Medical records reviewed: Yes I reviewed the patient's medical records. Lab Data Lab results reviewed: Yes I reviewed the patient's lab results. Labs: Laboratory Tests Range/Units 11/14/24 11/14/24 16:10 18:13 WBC (4.4-10.8) 10^3/uL 4.89 RBC (4.36-5.78) 10^6/uL 4.95 Hgb (13.5-17.5) g/dL 14.1 Hct (40.0-50.0) % 41.8 MCV (80-95) fL 84 MCH (27.0-33.0) pg 28.5 MCHC (32.0-36.0) % 33.7 RDW (11.8-14.1) % 14.2 H Plt Count (130-400) 10^3/uL 201 MPV (8.0-11.0) fL 9.8 Immature Gran % % 0.4 Neutrophils % % 66.1 Lymphocytes % % 19.8 Monocytes % % 12.7 Eosinophils % % 0.4 Basophils % % 0.6 Nucleated RBC % (0.0-0.3) % 0.0 Absolute Neutrophils (1.2-6.7) 10^3/uL 3.23 Absolute Lymphocytes (1.2-3.4) 10^3/uL 0.97 L Absolute Monocytes (0.1-0.8) 10^3/uL 0.62 Absolute Eosinophils (0.0-0.7) 10^3/uL 0.02 Absolute Basophils (0.0-0.2) 10^3/uL 0.03 VBG pH (7.31-7.41) 7.34 VBG pCO2 (41-51) mmHg 33 L VBG pO2 mmHg 70 VBG HCO3 (23-28) mmol/L 18 L VBG Total CO2 (24-29) mmol/L 16 L VBG O2 Saturation % 93 VBG Base Excess (-2-3) mmol/L -8 L VBG Lactate (0.6-1.4) mmol/L 5.0 H* Sodium (136-145) mmol/L 124 L* 130 L Potassium (3.5-5.1) mmol/L 3.8 3.7 Chloride (98-107) mmol/L 90 L 96 L Carbon Dioxide (21.0-32.0) mmol/L 18.8 L 22.6 Anion Gap (3-11) mmol/L 15.2 H 11.4 H BUN (7-18) mg/dL 21 H 20 H Creatinine (0.70-1.30) mg/dL 1.7 H 1.4 H Est GFR (CKD-EPI 2020) (mL/min/1.73m2) 45.30 57.18 Glucose (74-106) mg/dL 880 H* 629 H* Calcium (8.5-10.1) mg/dL 8.4 L 8.7 Total Bilirubin (0.2-1.0) mg/dL 0.67 AST (15-37) U/L 16 ALT (16-63) U/L 28 Alkaline Phosphatase (46-116) U/L 292 H Troponin I (<or=76) ng/L 56 NT-Pro-B Natriuret Pep (<300) pg/mL 771 H Total Protein (6.4-8.2) g/dL 7.3 Albumin (3.4-5.0) g/dL 3.3 L Lipase (<78) U/L 62 TSH (0.36-3.74) uIU/mL 1.24 Urine Color (Yellow) Yellow Urine Clarity (Clear) Clear Urine pH (5-8) 5.0 Ur Specific [place] (1.005-1.025) <= 1.005 Urine Protein (Neg-Trace) mg/dL Negative Urine Ketones (Negative) mg/dL Negative Urine Blood (Negative) Trace-intact H Urine Nitrite (Negative) Negative Urine Bilirubin (Negative) Negative Urine Urobilinogen (Up to 0.2) mg/dL 0.2 Ur Leukocyte Esterase (Negative) Negative Urine RBC (0-2) HPF 0-2 Urine WBC (0-5) HPF Negative Ur Epithelial Cells (Negative) HPF Rare Urine Crystals (Negative) HPF Negative Urine Bacteria (Negative) HPF Negative Urine Casts (Negative) LPF Negative Urine Mucus (Negative) Negative Ur Culture Indicated? No Urine Glucose (Negative) mg/dL >=1000 H Quality:SDOH Health Related Social Needs: No Data to Display PFSH All Active Problems (Updated 11/14/24 @ 17:45 by DEEPAK Benson) Hyperosmolar hyperglycemic state (HHS) (Acute) Intermittent gross hematuria (Acute) Constipation (Acute) Cough (Acute) Onychomycosis (Acute) PAD (peripheral artery disease) (Acute) Pain in left foot (Acute) Ulcer of right foot limited to breakdown of skin (Acute) Compression fracture of L1 vertebra (Acute) Orthostatic hypotension (Acute) Dizziness (Acute) Foot ulcer, left (Acute) Vitamin B12 deficiency (Acute) Subclinical hypothyroidism (Chronic ~02/2023) Monitor Obesity (Chronic) Hypomagnesemia (Chronic) Microalbuminuria (Chronic) Callus of foot (Chronic) Type 2 diabetes mellitus with retinopathy, with long-term current use of insulin (Chronic 10/27/17) Restless leg syndrome (Chronic 10/31/14) Sleep Medicine Obstructive sleep apnea, adult (Chronic 10/31/14) Pt. states he has not been using device 09/01/20 Severe, C-pap, Dr. Almeida continue on CPAP therapy with mask of choice,heated humidification and ramp. pressure should be set at 12 cm/H2o,alternatively auto CPAP 8-14 cm/H2O can be used. (sleep study note cameron Nonproliferative diabetic retinopathy (Chronic) Noncompliance with medication regimen (Chronic 07/06/13) Erectile dysfunction (Chronic 07/06/13) Essential hypertension (Chronic 07/06/13) Depression (Chronic 11/25/11) Sensorineural hearing loss, bilateral (Chronic 11/24/17) Conductive hearing loss in left ear (Acute) Medical History ASCVD (arteriosclerotic cardiovascular disease) (07/28/17) NSTEMI with HFrEF 07/11/2017 [place] [facility] [place] 2 diabetes mellitus with hyperglycemia, with long-term current use of insulin (11/25/15) Hyperlipidemia (07/06/13) Gastroesophageal reflux disease Chronic HFrEF (heart failure with reduced ejection fraction) (07/20/18) 2018: LVEF 30-35% at presentation; most recent echo 07/24/2020: LVEF 40-45% PVD (peripheral vascular disease) Autonomic dysfunction with type 2 diabetes mellitus Peripheral neuropathy Kidney stones Osteomyelitis Diabetic foot ulcer Tubular adenoma of colon (10/18/14) NSTEMI (non-ST elevated myocardial infarction) (07/11/17) 06/2017: [place] [facility] [place]AP[place] for a minimum of 1 year Surgical History Lesion of oral mucosa 01/29/[address] Schuster. 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 No dysplasia. PAS stain negative for fungal organisms Colonoscopy - IV Sedation (10/14/14) tubular adenoma Dr. Blancas Cholecystectomy S/P coronary artery stent placement s/p MADONNA to LAD mid 2; Dr. Fercho Eddy, [facility], 07/14/2017 Family History Mother Essential hypertension Father Lung cancer Social History Smoking/Tobacco Use Status: Never Smoking risk assessment performed?: Yes Alcohol Intake: never Drug use: Never Substance use type: does not use Adopted: No Caregiver/Support person: Yes Foster care: No Household members: spouse Housing: house Number of Children: 1 Communication Needs: Hard of Hearing Education Level: high school Do you need help understanding health information?: Never 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 Pets and animals: No Current gender identity: male What is your relationship status?: How often do you talk on the phone with friends or family?: three or more times per week How often do you get together with friends or relatives?: twice per week Do you belong to any clubs or organized social groups?: no Panel score (0-1 are the most socially isolated patients): 2 What type of physical activity do you participate in: walking and other Details: skiing, snowboarding. 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
[2024-11-14 16:40] LABS: BE (Venous) -8 mmol/L (-2-3); HCO3 (Venous) 18 mmol/L (23-28); O2 Sat (Venous) 93 %; TCO2 (Venous) 16 mmol/L (24-29); pCO2 (Venous) 33 mmHg (41-51); pH (Venous) 7.34 (7.31-7.41); pO2 (Venous) 70 mmHg
[2024-11-14 16:42] LABS: Abs Immature Grans 0.02 10^3/uL (0.0-0.06); Absolute Basophil Count 0.03 10^3/uL (0.0-0.2); Absolute Eosinophil Count 0.02 10^3/uL (0.0-0.7); Absolute Lymphocyte Count 0.97 10^3/uL (1.2-3.4); Absolute Monocyte Count 0.62 10^3/uL (0.1-0.8); Absolute Neutrophil Count 3.23 10^3/uL (1.2-6.7); Basophils % 0.6 %; Eosinophils % 0.4 %; HCT 41.8 % (40.0-50.0); HGB 14.1 g/dL (13.5-17.5); Immature Grans % 0.4 %; Lymphocytes % 19.8 %; MCH 28.5 pg (27.0-33.0); MCHC 33.7 % (32.0-36.0); MCV 84 fL (80-95); MPV 9.8 fL (8.0-11.0); Monocytes % 12.7 %; Neutrophils % 66.1 %; Platelet Count 201 10^3/uL (130-400); RBC 4.95 10^6/uL (4.36-5.78); RDW 14.2 % (11.8-14.1); RDW-SD 43.8 fL; WBC 4.89 10^3/uL (4.4-10.8)
[2024-11-14] MEDS: Normal Saline 1,000 ML 1000 ML IV ×2 (16:43→18:01)
[2024-11-14 16:53] LABS: Bilirubin Negative (Negative); Blood Trace-intact (Negative); Clarity Clear (Clear); Glucose >=1000 mg/dL (Negative); Ketones Negative (Negative); Leukocyte Esterase Negative (Negative); Nitrite Negative (Negative); Specific Gravity <= 1.005 (1.005-1.025); Urobilinogen 0.2 mg/dL (Up to 0.2)
[2024-11-14 17:01] LABS: Bacteria Negative HPF (Negative); C & S Indicated? No; Casts Negative LPF (Negative); Crystals Negative HPF (Negative); Epithelial Cells Rare HPF (Negative); Mucus Negative (Negative); RBC 0-2 HPF (0-2); WBC Negative HPF (0-5)
[2024-11-14 17:02] LABS: ALT 28 U/L (16-63); AST 16 U/L (15-37); Albumin 3.3 g/dL (3.4-5.0); Alkaline Phosphatase 292 U/L (46-116); Anion Gap 15.2 mmol/L (3-11); BUN 21 mg/dL (7-18); Bilirubin, Total 0.67 mg/dL (0.2-1.0); CO2 18.8 mmol/L (21.0-32.0); CREATININE 1.7 mg/dL (0.70-1.30); Chloride 90 mmol/L (98-107); Lipase 62 U/L (<78); Potassium 3.8 mmol/L (3.5-5.1); Total Protein 7.3 g/dL (6.4-8.2); Troponin I 56 ng/L (<or=76)
[2024-11-14 17:07] LABS: Calcium 8.4 mg/dL (8.5-10.1)
[2024-11-14 17:09] LABS: NT-proBNP 771 pg/mL (<300); TSH (W/Ref FT4) 1.24 uIU/mL (0.36-3.74)
[2024-11-14 17:21] LABS: Glucose 880 mg/dL (74-106); Sodium 124 mmol/L (136-145)
[2024-11-14 18:40] LABS: Anion Gap 11.4 mmol/L (3-11); BUN 20 mg/dL (7-18); CO2 22.6 mmol/L (21.0-32.0); CREATININE 1.4 mg/dL (0.70-1.30); Calcium 8.7 mg/dL (8.5-10.1); Chloride 96 mmol/L (98-107); Estimated GFR 57.18 (mL/min/1.73m2); Potassium 3.7 mmol/L (3.5-5.1); Sodium 130 mmol/L (136-145)
[2024-11-14 18:42] LABS: Glucose 629 mg/dL (74-106)
[2024-11-14] MEDS: Insulin REGULAR-Human 100 UNITS/ML UNIT 10 UNITS SC (19:02)
--- NOTE | 2024-11-14 19:45 | HPE_ITS ---
Date of service: 11/14/24 Time of Service: 19:46 Assessment and Plan Assessment and plan (1) Hyperosmolar hyperglycemic state (HHS): Start date: 11/14/24 Status: Acute Assessment and plan: This is a 59-year-old gentleman who has been off his medicines for 2 months. He presents with severe hyperglycemia and HHNC though mentation is clear. He is responding well to IV hydration along with regular insulin being given in the ED and resistant sliding scale insulin being given every 4 hours with glucometer measurements. He was hypertensive off his medications and metoprolol was reinitiated at double the dose with lisinopril but midodrine was held though he does have a history of orthostatic hypotension. This need to be further evaluated. He is responding well to treatment and labs will be followed up to assure clearing of lactic acidosis and normalizing anion gap. He is not on insulin infusion not having DKA. He is a full code. (2) Type 2 diabetes mellitus with retinopathy, with long-term current use of insulin: Status: Chronic Assessment and plan: Reinitiate insulin therapy holding metformin as patient been off this medication recently. Reinitiate outpatient medical therapy once patient is stabilized. (3) Essential hypertension: Status: Chronic Assessment and plan: Reinitiate outpatient medical therapy watch for hypotension with the patient having a history of orthostatic hypotension in the past on midodrine as well. He is severely hypertensive upon presentation to the ED. Metoprolol will be started at split dosing and adjust as needed. (4) CKD (chronic kidney disease): Status: Chronic Assessment and plan: Patient appears to have chronic kidney disease with intermittent elevation of his creatinine and poorly controlled diabetes. Trend labs while hydrate. Because of patient's history of heart disease echocardiogram will be updated with fluid resuscitation ongoing though the patient has no history of CHF. He is on spironolactone chronically which will be held. (5) PAD (peripheral artery disease): Status: Chronic Assessment and plan: Continue Plavix. (6) Orthostatic hypotension: Status: Chronic Assessment and plan: Hold midodrine for now. (7) ASCVD (arteriosclerotic cardiovascular disease): Assessment and plan: No overt history of CHF but echocardiogram will be updated with some of the patient's medications indicating CHF. He also has obesity with sleep apnea which does not appear to be treated. (8) Hyperlipidemia: Assessment and plan: Continue statin therapy. History of Present Illness History of Present Illness Chief Complaint: Diabetic off treatment with polyuria without weight loss Narrative: This is a 59-year-old male patient who recently moved to the area in September 2024 without ability to receive medical care being on multiple medications with a history of diabetes not well-controlled with diabetic foot ulcers and osteomyelitis in the past, neuropathy, atherosclerosis with a non-STEMI in the past and PAD as well as hyperlipidemia. He also has kidney stones with no recent symptoms. He did have a drink of moonshine with his family at [place], the day he presented with concerns for high blood sugar with polyuria. He was found to have HHNC without mentation changes and was initiated on IV hydration with intermittent insulin having received regular insulin in the ED and now on every 4 hours glucometers with resistant sliding scale coverage. He offers no other complaints, see ED note for complete review. He was not in DKA not having acidosis but did have a increased anion gap and severe hypertension initially off his usual antihypertensives. Acid the patient not been on his medical therapy for at least 2 months. He is a full code. Review of Systems Narrative: 13 point review of systems otherwise unrevealing or stable. Patient has not had any weight loss. PFSH All Active Problems (Updated 11/15/24 @ 06:09 by Keven Garcia) CKD (chronic kidney disease) (Chronic) Hyperosmolar hyperglycemic state (HHS) (Acute) Intermittent gross hematuria (Acute) Constipation (Acute) Cough (Acute) Onychomycosis (Acute) PAD (peripheral artery disease) (Chronic) Pain in left foot (Acute) Ulcer of right foot limited to breakdown of skin (Acute) Compression fracture of L1 vertebra (Acute) Orthostatic hypotension (Chronic) Dizziness (Acute) Foot ulcer, left (Acute) Vitamin B12 deficiency (Acute) Subclinical hypothyroidism (Chronic ~02/2023) Monitor Obesity (Chronic) Hypomagnesemia (Chronic) Microalbuminuria (Chronic) Callus of foot (Chronic) Type 2 diabetes mellitus with retinopathy, with long-term current use of insulin (Chronic 10/27/17) Restless leg syndrome (Chronic 10/31/14) Sleep Medicine Obstructive sleep apnea, adult (Chronic 10/31/14) Pt. states he has not been using device 09/01/20 Severe, C-pap, Dr. Almeida continue on CPAP therapy with mask of choice,heated humidification and ramp. pressure should be set at 12 cm/H2o,alternatively auto CPAP 8-14 cm/H2O can be used. (sleep study note cameron Nonproliferative diabetic retinopathy (Chronic) Noncompliance with medication regimen (Chronic 07/06/13) Erectile dysfunction (Chronic 07/06/13) Essential hypertension (Chronic 07/06/13) Depression (Chronic 11/25/11) Sensorineural hearing loss, bilateral (Chronic 11/24/17) Conductive hearing loss in left ear (Acute) Medical History ASCVD (arteriosclerotic cardiovascular disease) (07/28/17) NSTEMI with HFrEF 07/11/2017 s/p MADONNA to mLAD on 07/14/2017 at [facility] [place] Type 2 diabetes mellitus with hyperglycemia, with long-term current use of insulin (11/25/15) Hyperlipidemia (07/06/13) Gastroesophageal reflux disease Chronic HFrEF (heart failure with reduced ejection fraction) (07/20/18) 2018: LVEF 30-35% at presentation; most recent echo 07/24/2020: LVEF 40-45% PVD (peripheral vascular disease) Autonomic dysfunction with type 2 diabetes mellitus Peripheral neuropathy Kidney stones Osteomyelitis Diabetic foot ulcer Tubular adenoma of colon (10/18/14) NSTEMI (non-ST elevated myocardial infarction) (07/11/17) 06/2017: S/p MADONNA to mLAD at [facility]; DAPT for a minimum of 1 year Surgical History Lesion of oral mucosa 01/29/[address] Schuster. 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 No dysplasia. PAS stain negative for fungal organisms Colonoscopy - IV Sedation (10/14/14) tubular adenoma Dr. Blancas Cholecystectomy S/P coronary artery stent placement s/p MADONNA to LAD mid 2; Dr. 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 parts delivery driver: No Do you feel safe at home: Yes Do you feel safe in your relationship?: Yes Meds Allergies and Home Medications Allergies Allergy/AdvReac Type Severity Reaction Status Date / Time bee venom protein (honey bee) Allergy Severe Swelling/Ed Verified 11/14/24 18:06 capri Penicillins Allergy Unknown Rash Verified 11/14/24 18:06 shellfish derived Allergy Unknown Rash; Verified 11/14/24 18:06 swelling Home Medications ?Medication ?Instructions ?Recorded ?Confirmed ?Type lancets #400 ea 04/24/20 11/05/24 Rx alcohol swabs (Alcohol Pads) 1 pad topical QID Prior to 08/08/20 11/14/24 Rx administering insulin for diabetes #400 ea clopidogrel 75 mg tablet See Rx Instructions .Route 07/06/22 11/14/24 Rx .COMPLEX #90 tabs insulin aspart U-100 100 unit/mL See Rx Instructions subcut AC #45 01/19/23 11/14/24 Rx (3 mL) subcutaneous pen (Novolog mL FlexPen U-100 Insulin aspart) pen needle, diabetic 31 gauge x #400 ea 02/25/23 11/05/24 Rx 16 (BD Ultra-Fine Short Pen Needle) cyanocobalamin (vitamin B-12) 1,000 mcg PO DAILY #90 tab-caps 06/30/23 11/14/24 Rx 1,000 mcg tablet isosorbide mononitrate 30 mg See Rx Instructions .Route 11/24/23 11/14/24 Rx tablet,extended release 24 hr .COMPLEX #28 tabs sertraline 100 mg tablet (Zoloft) 200 mg (2 x 100 mg) PO DAILY #180 12/13/23 11/14/24 Rx tab-caps cholecalciferol (vitamin D3) 25 2,000 mcg (80 x 25 mcg (1,000 01/26/24 11/14/24 Rx mcg (1,000 unit) tablet unit)) PO DAILY #60 tabs blood-glucose sensor (FreeStyle #6 ea 06/22/24 11/05/24 Rx Flako 3 Sensor device) bupropion HCl 150 mg 24 hr tablet, 300 mg (2 x 150 mg) PO QAM #180 07/12/24 11/14/24 Rx extended release tabs empagliflozin 25 mg tablet See Rx Instructions .Route 07/12/24 11/14/24 Rx (Jardiance) .COMPLEX #90 tabs lisinopril 2.5 mg tablet 2.5 mg PO DAILY #90 tabs 07/12/24 11/14/24 Rx magnesium oxide 400 mg (241.3 mg 400 mg PO DAILY #90 tab-caps 07/12/24 11/14/24 Rx magnesium) tablet metformin 1,000 mg tablet 1,000 mg PO BID diabetes #180 07/12/24 11/14/24 Rx tab-caps metoprolol succinate 50 mg 50 mg PO DAILY #90 tab-caps 07/12/24 11/14/24 Rx tablet,extended release 24 hr midodrine 10 mg tablet 10 mg PO TID #90 tabs 07/12/24 11/14/24 Rx pantoprazole 40 mg tablet,delayed See Rx Instructions .Route 07/12/24 11/14/24 Rx release .COMPLEX #90 tabs rosuvastatin 40 mg tablet (Crestor) 40 mg PO HS #90 tab-caps 07/12/24 11/14/24 Rx spironolactone 25 mg tablet 12.5 mg (1/2 x 25 mg) PO DAILY #45 07/12/24 11/14/24 Rx tab-caps semaglutide 2 mg/dose (8 mg/3 mL) 0.5 mg (0.1875 mL) subcut QWEEK #3 08/30/24 11/14/24 Rx subcutaneous pen injector (Ozempic) mL insulin degludec 100 unit/mL (3 75 unit subcut QHS Dx: E11.9 to 09/06/24 11/14/24 History mL) subcutaneous pen (Tresiba maintain HbA1c less than 7% FlexTouch U-100 insulin) lancing device with lancets kit #1 ea 09/06/24 11/05/24 Rx polyethylene glycol 3350 17 17 g PO DAILY PRN constipation 09/06/24 11/14/24 Rx gram/dose oral powder (Miralax) #119 grams budesonide-formoterol HFA 160 2 puff inhalation BID #10.2 grams 09/25/24 11/14/24 Rx mcg-4.5 mcg/actuation aerosol inhaler (Symbicort) ketoconazole 2 % topical cream 1 applic topical DAILY #120 grams 10/09/24 11/14/24 Rx Diabetic Shoes #1 ea 10/23/24 11/05/24 Rx nitroglycerin 0.4 mg sublingual 0.4 mg sublingual Q5M PRN chest 10/23/24 11/14/24 Rx tablet pain #30 tab-caps famotidine 40 mg tablet 40 mg PO QHS #30 tabs 11/05/24 11/14/24 Rx blood sugar diagnostic (FreeStyle #100 ea 11/09/24 Rx Lite Strips) blood-glucose meter (FreeStyle #1 ea 11/09/24 Rx Lite Meter kit) lancets 28 gauge (FreeStyle #100 ea 11/09/24 Rx Lancets) Exam Narrative Exam Narrative: General: The patient appears older than stated age, morbidly obese, alert and oriented x 3 and in no acute distress. HEENT: Normocephalic, disheveled hair with course and facial features, eyes with pupils equal and reactive to light symmetrically, extraocular movement intact and sclera anicteric. Oropharynx with dry mucosa and poor dentition. Neck: Supple without JVD. Back: Kyphotic without CVA tenderness. Lungs: Fair aeration and clear to auscultation percussion with no focalizing rales or rhonchi. Vesicular breath sounds. Heart: Regular rate and rhythm with no murmurs gallops appreciated. Abdomen: Obese contour, soft and nontender to palpation with no palpable hepatosplenomegaly. Bowel sounds positive in all quadrants. Genitalia/rectal: Exam deferred. Skin: Normal color, warm and dry. Extremities: Without clubbing, cyanosis or grossly pitting edema. Good capillary refill. Neuro: Cranial nerves II through XII gross intact, no focalizing motor deficits. Psych: Slightly depressed mood with flattened affect. No abnormal thought processes. Remote and recent memory grossly intact. Results Labs 11/14/24 16:10 11/14/24 18:13 Labs: Laboratory Results - last 24 hr 11/14/24 11/14/24 16:10 18:13 WBC 4.89 RBC 4.95 Hgb 14.1 Hct 41.8 MCV 84 MCH 28.5 MCHC 33.7 RDW 14.2 H Plt Count 201 MPV 9.8 Immature Gran % 0.4 Neutrophils % 66.1 Lymphocytes % 19.8 Monocytes % 12.7 Eosinophils % 0.4 Basophils % 0.6 Nucleated RBC % 0.0 Absolute Neutrophils 3.23 Absolute Lymphocytes 0.97 L Absolute Monocytes 0.62 Absolute Eosinophils 0.02 Absolute Basophils 0.03 VBG pH 7.34 VBG pCO2 33 L VBG pO2 70 VBG HCO3 18 L VBG Total CO2 16 L VBG O2 Saturation 93 VBG Base Excess -8 L VBG Lactate 5.0 H* Sodium 124 L* 130 L Potassium 3.8 3.7 Chloride 90 L 96 L Carbon Dioxide 18.8 L 22.6 Anion Gap 15.2 H 11.4 H BUN 21 H 20 H Creatinine 1.7 H 1.4 H Est GFR (CKD-EPI 2020) 45.30 57.18 Glucose 880 H* 629 H* Calcium 8.4 L 8.7 Total Bilirubin 0.67 AST 16 ALT 28 Alkaline Phosphatase 292 H Troponin I 56 NT-Pro-B Natriuret Pep 771 H Total Protein 7.3 Albumin 3.3 L Lipase 62 TSH 1.24 Urine Color Yellow Urine Clarity Clear Urine pH 5.0 Ur Specific [place] <= 1.005 Urine Protein Negative Urine Ketones Negative Urine Blood Trace-intact H Urine Nitrite Negative Urine Bilirubin Negative Urine Urobilinogen 0.2 Ur Leukocyte Esterase Negative Urine RBC 0-2 Urine WBC Negative Ur Epithelial Cells Rare Urine Crystals Negative Urine Bacteria Negative Urine Casts Negative Urine Mucus Negative Ur Culture Indicated? No Urine Glucose >=1000 H Last Vital Signs Temp 36.6 C 11/14/24 16:39 Pulse 94 H 11/14/24 19:16 Resp 27 H 11/14/24 19:16 BP 152/114 H 11/14/24 19:16 Pulse Ox 93 11/14/24 19:16 Time Spent Time spent with Patient: >75 minutes Time was spent: preparing to see the patient(eg.review tests), obtaining and/or reviewing separately otained hiistory, ordering medications,tests, procedures, indepentently interpreting results, counseling the patient and care coordination
[2024-11-14] MEDS: Insulin Aspart 300 UNITS/3 ML PEN SC (22:15)
[2024-11-14] MEDS: Enoxaparin 40 MG/0.4 ML SYR SC (22:16)
[2024-11-14] MEDS: Famotidine 20 MG TAB 40 MG PO (22:16)
[2024-11-14] MEDS: Budesonide/Formoterol 160/4.5 6 GM 60 PUFF INH IH (22:42)
[2024-11-15] VITALS (21 sets, daily range): BP systolic 80–134; BP diastolic 51–85; PULSE 77–91; RESP 14–30; TEMP 36.5–37.3; O2SAT 91–99
[2024-11-15] MEDS: Insulin Aspart 300 UNITS/3 ML PEN SC ×5 (02:05→22:41)
[2024-11-15] MEDS: Albuterol 2.5 MG/3 ML INH SOLN VIAL UPD (02:29)
[2024-11-15 06:27] LABS: ALT 23 U/L (16-63); AST 17 U/L (15-37); Alkaline Phosphatase 158 U/L (46-116); BUN 14 mg/dL (7-18); Bilirubin, Total 0.55 mg/dL (0.2-1.0); CREATININE 0.9 mg/dL (0.70-1.30); Calcium 8.3 mg/dL (8.5-10.1); Chloride 104 mmol/L (98-107); Estimated GFR 97.17 (mL/min/1.73m2); Glucose 207 mg/dL (74-106); Magnesium 1.6 mg/dL (1.8-2.4); Potassium 3.2 mmol/L (3.5-5.1); Sodium 139 mmol/L (136-145); Total Protein 6.4 g/dL (6.4-8.2)
[2024-11-15 06:29] LABS: HGB 13.8 g/dL (13.5-17.5); MCH 28.6 pg (27.0-33.0); MCHC 35.4 % (32.0-36.0); MCV 81 fL (80-95); MPV 9.3 fL (8.0-11.0); Platelet Count 205 10^3/uL (130-400); RBC 4.83 10^6/uL (4.36-5.78); RDW 14.2 % (11.8-14.1); RDW-SD 41.7 fL; WBC 5.09 10^3/uL (4.4-10.8)
[2024-11-15 06:39] LABS: Lactate 0.8 mmol/L (0.6-1.4)
[2024-11-15] MEDS: Pantoprazole 40 MG TABCR PO (07:34)
[2024-11-15] MEDS: buPROPion-XL 150 MG TABCR 300 MG PO (07:59)
[2024-11-15] MEDS: Cyanocobalamin 500 MCG TAB 1000 MCG PO (07:59)
[2024-11-15] MEDS: Potassium Chloride Liquid 20 MEQ PKT 40 MEQ PO (07:59)
[2024-11-15] MEDS: Isosorbide Mononitrate 30 MG TABCR PO (08:00)
[2024-11-15] MEDS: Magnesium Oxide 400 MG TAB PO (08:00)
[2024-11-15] MEDS: Lisinopril 5 MG TAB PO (08:00)
[2024-11-15] MEDS: Clopidogrel 75 MG TAB PO (08:01)
[2024-11-15] MEDS: Empaglifozin 25 MG TAB PO (08:01)
[2024-11-15] MEDS: Metoprolol 25 MG TAB PO ×3 (08:03→20:09)
[2024-11-15] MEDS: Budesonide/Formoterol 160/4.5 6 GM 60 PUFF INH IH ×2 (08:19→19:25)
[2024-11-15] MEDS: POTASSIUM CHLORIDE/0.9% NACL 1,000 ML 100 MEQ IV (08:24)
[2024-11-15] MEDS: MAGNESIUM SULFATE 2 GM/50 ML BAG IV_INF (08:24)
--- NOTE | 2024-11-15 08:33 | PDOC.CMIN ---
Date of service: 11/15/24 Time of Service: 08:33 Care Management Initial Assmt Initial Assessment Reason for Hospitalization: Diabetes Functional Status/Living Situation Patient Presentation: Ganesh was lying in bed when CM met with him, he is pleasant and engages in conversation. He lives in [facility] with his Nancy. He is retired and is on social security. His community health consultant is Dandre Porter from [facility] through He's been having trouble obtaining sensors for his CGM and his PCP is aware and a glucometer and supplies were sent to [facility] on 11/09/24 and are still pending prior auth with his insurance. CM spoke with his CCC at his PCP office this afternoon and a different glucometer and supplies are sent to [facility]. CM will check on the status tomorrow. Town of Residence: [facility] Resides with: Spouse ( Nancy) Significant Other/Family: Local Natural Supports: , sister and mother. On file; Candy (mother) listed as HCA; Nancy (sister) listed as alternate HCA. Employment Status: Retired Instrumental Activities of Daily Living (ADLs): Independent Medications Medication Management: Issues/Barriers (Issue obtaining his CGM sensors as a outpatient. Per chart notes: PCP aware, RX for a meter and test strips to his pharmacy on 11/09/24 to hold him over until issue is resolved.) with Obtaining Physical Functioning/Mobility Assistive Device: None Advance Directives Advance Directives: Do you have an Advance Directive: Y 05/02/14 18:13 AD On File at [facility]: Y 07/10/13 17:03 Date Asked 02/13/19 10/29/24 11:03 AD Date Reviewed 11/14/24 11/14/24 16:20 COLST On File at [facility] No 06/30/24 20:51 COLST Date Scanned Code Status Resuscitation Status Full Code Portal Pt does not currently have a portal and education provided: Yes Insurance Coverage/Financial Issues Insurance: [employer] MCR replacement. MCR. AIYANA. Financial Assist 100%. Care Team Visit Care Team Role Provider Type Oscar Weinstein DO Primary Care Provider OSTEOPATHIC DOCTOR DEEPAK Benson Emergency Provider PHYSICIANS FINANCE ADMIN Keven Garcia Admit Provider NON-[facility] STAFF PHYSICIAN Attending Provider Other: [facility] Case Management Discharge Potential Discharge Needs: PCP F/U Appt Anticipated Barriers to Discharge: Medical Status Patient/Family Education Needs: Review discharge instructions, discuss Ask Me Three Transportation: Private vehicle Plan: Anticipate Ganesh will discharge home with new [facility] services, if indicated when medically ready for discharge. He may benefit from New H RN to provided additional diabetic education after discharge. Ganesh will be transported via private vehicle by family. He will follow up with his PCP and discharge plan of care. CM will continue to follow. PFSH All Active Problems (Updated 11/15/24 @ 06:09 by Keven Garcia) CKD (chronic kidney disease) (Chronic) Hyperosmolar hyperglycemic state (HHS) (Acute) Intermittent gross hematuria (Acute) Constipation (Acute) Cough (Acute) Onychomycosis (Acute) PAD (peripheral artery disease) (Chronic) Pain in left foot (Acute) Ulcer of right foot limited to breakdown of skin (Acute) Compression fracture of L1 vertebra (Acute) Orthostatic hypotension (Chronic) Dizziness (Acute) Foot ulcer, left (Acute) Vitamin B12 deficiency (Acute) Subclinical hypothyroidism (Chronic ~02/2023) Monitor Obesity (Chronic) Hypomagnesemia (Chronic) Microalbuminuria (Chronic) Callus of foot (Chronic) Type 2 diabetes mellitus with retinopathy, with long-term current use of insulin (Chronic 10/27/17) Restless leg syndrome (Chronic 10/31/14) Sleep Medicine Obstructive sleep apnea, adult (Chronic 10/31/14) Pt. states he has not been using device 09/01/20 Severe, C-pap, Dr. Almeida continue on CPAP therapy with mask of choice,heated humidification and ramp. pressure should be set at 12 cm/H2o,alternatively auto CPAP 8-14 cm/H2O can be used. (sleep study note cameron Nonproliferative diabetic retinopathy (Chronic) Noncompliance with medication regimen (Chronic 07/06/13) Erectile dysfunction (Chronic 07/06/13) Essential hypertension (Chronic 07/06/13) Depression (Chronic 11/25/11) Sensorineural hearing loss, bilateral (Chronic 11/24/17) Conductive hearing loss in left ear (Acute) Medical History ASCVD (arteriosclerotic cardiovascular disease) (07/28/17) NSTEMI with HFrEF 07/11/2017 s/p MAODNNA to mLAD on 07/14/2017 at [facility] [place] Type 2 diabetes mellitus with hyperglycemia, with long-term current use of insulin (11/25/15) Hyperlipidemia (07/06/13) Gastroesophageal reflux disease Chronic HFrEF (heart failure with reduced ejection fraction) (07/20/18) 2018: LVEF 30-35% at presentation; most recent echo 07/24/2020: LVEF 40-45% PVD (peripheral vascular disease) Autonomic dysfunction with type 2 diabetes mellitus Peripheral neuropathy Kidney stones Osteomyelitis Diabetic foot ulcer Tubular adenoma of colon (10/18/14) NSTEMI (non-ST elevated myocardial infarction) (07/11/17) 06/2017: S/p MADONNA to mLAD at [facility] [place]; DAPT for a minimum of 1 year Surgical History Lesion of oral mucosa 01/29/[address] Schuster. 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 No dysplasia. PAS stain negative for fungal organisms Colonoscopy - IV Sedation (10/14/14) tubular adenoma Dr. Blancas Cholecystectomy S/P coronary artery stent placement s/p MADONNA to LAD mid 2; Dr. Fercho Eddy, [facility], 07/14/2017 Family History Mother Essential hypertension Father Lung cancer Social History Smoking/Tobacco Use Status: Never Smoking risk assessment performed?: Yes Alcohol Intake: never Drug use: Never Substance use type: does not use Adopted: No Caregiver/Support person: Yes Foster care: No Household members: spouse Housing: apartment Number of Children: 1 Communication Needs: Hard of Hearing Education Level: high school Do you need help understanding health information?: Never 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 Pets and animals: No Current gender identity: male What is your relationship status?: How often do you talk on the phone with friends or family?: three or more times per week How often do you get together with friends or relatives?: twice per week Do you belong to any clubs or organized social groups?: no Panel score (0-1 are the most socially isolated patients): 2 What type of physical activity do you participate in: walking and other Details: skiing, snowboarding. 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 route driver: No Do you feel safe at home: Yes Do you feel safe in your relationship?: Yes SDOH(Care Management) Screening Will the Patient Participate in the Screening?: Yes Do you worry about having a steady place to live?: no In the past 12 months, have you had to go without electric, gas, oil or water in your home?: no Have you or anyone in your house had to go without enough food to eat?: no Has lack of transportation kept you from medical appointments or from doing things needed for daily living?: no Has anyone in your support network made you feel unsafe for any reason?: no Anticipated HH Services Anticipated HH Services at Discharge [facility].
[2024-11-15] MEDS: Sertraline 100 MG TAB 200 MG PO (09:03)
--- NOTE | 2024-11-15 10:30 | DI.US_ITS ---
APPROVED REPORT EXAM: Comprehensive 2D, Doppler, and color-flow Echocardiogram Patient Location: In-Patient Room/Bed: [address] [facility] Specialists: Peter Urias RDCS (AE) Indications: PVD, CAD Other Information Study Quality: Fair. Technically limited study due to body habitus, inability to position patient. Conclusion Technically difficult study Normal left ventricular wall thickness and chamber size. Estimated EF is 50 percent. There is an an teroapical wall motion abnormality Normal right ventricular size and function Both atria are normal in size There is no structural or hemodynamically significant valvular disease Compared to an echocardiogram from 2017 at [facility] there is no significant change Wall motion Left Ventricle The left ventricle is grossly normal size. Unable to obtain measurements due to vertical orientation of left ventricle. Left ventricular systolic function is borderline Anteroapical hypokinesis There is no ventricular septal defect visualized. LVEF is 50%. Right Ventricle The right ventricle is normal size. The right ventricular systolic function is normal. Atria The left atrium size is normal. The interatrial septum is intact with no evidence for an atrial septa l defect. Aortic Valve The aortic valve is normal in structure. There is no aortic valvular stenosis. No aortic regurgitatio n is present. Mitral Valve The mitral valve is normal in structure. No evidence of mitral valve stenosis. Trace to mild mitral r egurgitation. Tricuspid Valve The tricuspid valve is normal in structure. There is no tricuspid valve stenosis. Trace tricuspid reg urgitation. Unable to assess PA pressure. Pulmonic Valve The pulmonary valve is normal in structure. There is no pulmonic valvular stenosis. There is no pulmo mary valvular regurgitation. Great Vessels The aortic root is normal in size. The ascending aorta is normal in size. Aortic arch is normal in ca liber. IVC is normal in size and collapses >50% with inspiration. Pericardium There is no pericardial effusion. 2D Dimensions Ao Root d 2.69 cm M: 3.1 - 3.7 Ao Asc Diam d 2.69 cm M: 2.6 - 3.4 Auto EF LV EDV A4C 112.2 mL LV EDV A2C 99.9 mL LV EDV BP LV ESV A4C 56.9 mL LV ESV A2C 49.8 mL LV ESV BP LVEF(%) A4C 49.3 % LVEF(%) A2C 50.1 % LVEF(%) BP LV SV A4C 55.3 ml LV SV A2C 50.1 ml LV SV BP LV CO A4C 4.2 L/min LV CO A2C 3.7 L/min LV CO BP HR A4C 76.11 BPM HR A2C 73.77 BPM LV EDV Index (BP) LA Volume LA Length A4C 5.4 cm LA Length A2C 3.9 cm LA Area A4C s 13.49 cm2 LA Area A2C s 7.84 cm2 LA Vol A4C A-L 28.50 mL LA Vol A2C A-L 13.50 mL LA Vol Biplane A-L 23.2 mL LA Vol/BSA A4C A-L LA Vol/BSA A2C A-L LA Vol/BSA BP A-L 10.5 mL/m2 LA Vol A4C MOD 27.7 mL LA Vol A2C MOD 12.8 mL LA Vol BP MOD 22.2 mL RA Volume RA Area A4C 14.0 cm2 RA ESV A4C (A-L) 33.7mL RA Vol/BSA A4C A-L RA Length A4C 4.9 cm RA ESV A4C (MOD) 31.7mL LV Diastology MV E' medial 0.080 (>0.07 m/s) MV E Vmax 0.62 (0.4-1.3 m/s) MV E/E' MED 7.78 (<14) MV A Vmax 0.65 (0.4-1.3 m/s) MV E' lateral 0.077 (>0.1 m/s) E/A Ratio 1.0 MV E/E' LAT 8.05 (<14) MV E' Average 0.078 m/s MV E/E'(average) 7.91 Aortic Valve AoV Vmax 0.86 m/s LVOT Vmax 0.91 m/s AoV Peak Grad 3.0 mmHg LVOT Peak Grad 3.3 mmHg AoV Area (Vmax) 3.45 cm2 LVOT VTI 0.162 m AoV VTI 0.165 m LVOT Mean Grad 1.9 mmHg AoV Mean Antony. 0.67 m/s LVOT SV 52.87 mL AoV Mean Grad 1.9 mmHg LVOT Diam s 2.00 cm AoV Area (VTI) 3.21 cm2 AV Regurg Peak Gr. 2.99 mmHg Velocity Ratio 1.06 Mitral Valve MV DT 175 (160-240 msec) Pulmonary Valve PV Vmax 0.83 (0.5-1.5 m/s) RVOT Vmax 0.65 m/s PV Peak Grad 2.8 mmHg RVOT Peak Gr. 1.7 mmHg PV Mean Antony 0.66 m/s RVOT VTI 0.142 m PV Mean Grad 1.8 mmHg RVOT Mean Gr. 1.0 mmHg
--- NOTE | 2024-11-15 12:29 | W.PM.PROGNOT ---
Date of Service Date of service: 11/15/24 Time of Service: 08:30 Assessment and Plan Assessment and plan (1) Hyperosmolar hyperglycemic state (HHS): Start date: 11/14/24 Status: Acute Assessment and plan: Admitted with severe hyperglycemia and HHNC though never had MS changes. Triggered by being off insulin therapy x 2 months. AG closed and lactic acidosis resolved with hydration. He never was on insulin drip. Back on basal bolus insulin, eating today. DM education requested. Confirmed CGM patches have been ordered. (2) Type 2 diabetes mellitus with retinopathy, with long-term current use of insulin: Status: Chronic Assessment and plan: Poor control with A1c 10.6% in august, then came off insulin. Reinitiated insulin therapy. Empagliflozin was restarted this morning. Reinitiate metformin as medical therapy once patient is stabilized or at discharge. he never took GLP-1 but would benefit from this (3) Essential hypertension: Status: Chronic Assessment and plan: Odd outpatient regimen with multiple antihypertensives and midodrine. He states he has not been taking metoprolol, midodrine, lisinopril, or spironolactone. I think it makes sense to start over. Reinitiate outpatient medical therapy watch for hypotension with the patient having a history of orthostatic hypotension in the past on midodrine as well. He is severely hypertensive upon presentation to the ED. Metoprolol will be started at split dosing and adjust as needed. (4) CKD (chronic kidney disease): Status: Chronic Assessment and plan: Patient appears to have chronic kidney disease with intermittent elevation of his creatinine and poorly controlled diabetes. GFR normalized today after hydration. Resumed YVETTE inh as above. On SGLT2i (5) PAD (peripheral artery disease): Status: Chronic Assessment and plan: Continue clopidogrel, resume statin. (6) Orthostatic hypotension: Status: Chronic Assessment and plan: Hold midodrine for now, needing less HTN meds, follow. (7) ASCVD (arteriosclerotic cardiovascular disease): Assessment and plan: No overt history of CHF, but some of the patient's medications indicating CHF. Echo limited but shows LVEF 50%, no change from 2017. on clopidogrel and statin, continue. (8) Hyperlipidemia: Assessment and plan: Continue statin therapy. (9) Depression: Status: Chronic Assessment and plan: was off SSRI, vomited after getting full dose this morning. Resume at starting dose tomorrow. Subjective Subjective Patient reports: voiding w/o difficulty; denies diarrhea, shortness of breath or fever Interval history since last seen: Vomited x 1 this morning, sertraline noted in vomit. Feeling okay this morning other than episode of vomiting. He is drinking some but not much appetite. Tolerated liquid potassium. No pain. He confirms he wasn't taking his insulin because his CGM was not functional. Exam Narrative Exam Narrative: General: Alert and oriented x 3 and in no acute distress. Lungs: Fair aeration and clear to auscultation percussion with no focalizing rales or rhonchi. Vesicular breath sounds. Heart: Regular rate and rhythm with no murmurs gallops appreciated. Abdomen: Soft and nontender to palpation with no masses Bowel sounds positive in all quadrants. Extremities: Without clubbing, cyanosis or grossly pitting edema. Good capillary refill. Objective Last Vital Signs Temp 37.3 C 11/15/24 11:24 Pulse 77 11/15/24 12:01 Resp 27 H 11/15/24 12:01 BP 105/70 11/15/24 12:01 Pulse Ox 93 11/15/24 12:01 Laboratory Results - last 24 hr 11/14/24 11/14/24 11/14/24 16:10 18:13 21:01 WBC 4.89 RBC 4.95 Hgb 14.1 Hct 41.8 MCV 84 MCH 28.5 MCHC 33.7 RDW 14.2 H Plt Count 201 MPV 9.8 Immature Gran % 0.4 Neutrophils % 66.1 Lymphocytes % 19.8 Monocytes % 12.7 Eosinophils % 0.4 Basophils % 0.6 Nucleated RBC % 0.0 Absolute Neutrophils 3.23 Absolute Lymphocytes 0.97 L Absolute Monocytes 0.62 Absolute Eosinophils 0.02 Absolute Basophils 0.03 VBG pH 7.34 VBG pCO2 33 L VBG pO2 70 VBG HCO3 18 L VBG Total CO2 16 L VBG O2 Saturation 93 VBG Base Excess -8 L VBG Lactate 5.0 H* Sodium 124 L* 130 L Potassium 3.8 3.7 Chloride 90 L 96 L Carbon Dioxide 18.8 L 22.6 Anion Gap 15.2 H 11.4 H BUN 21 H 20 H Creatinine 1.7 H 1.4 H Est GFR (CKD-EPI 2020) 45.30 57.18 Glucose 880 H* 629 H* Calcium 8.4 L 8.7 Magnesium Total Bilirubin 0.67 AST 16 ALT 28 Alkaline Phosphatase 292 H Troponin I 56 NT-Pro-B Natriuret Pep 771 H Total Protein 7.3 Albumin 3.3 L Lipase 62 TSH 1.24 Urine Color Yellow Cancelled Urine Clarity Clear Cancelled Urine pH 5.0 Cancelled Ur Specific [place] <= 1.005 Cancelled Urine Protein Negative Cancelled Urine Ketones Negative Cancelled Urine Blood Trace-intact H Cancelled Urine Nitrite Negative Cancelled Urine Bilirubin Negative Cancelled Urine Urobilinogen 0.2 Cancelled Ur Leukocyte Esterase Negative Cancelled Urine RBC 0-2 Urine WBC Negative Ur Epithelial Cells Rare Urine Crystals Negative Urine Bacteria Negative Urine Casts Negative Urine Mucus Negative Ur Culture Indicated? No Urine Glucose >=1000 H Cancelled 11/15/24 11/15/24 05:40 06:33 WBC 5.09 RBC 4.83 Hgb 13.8 Hct 39.0 L MCV 81 MCH 28.6 MCHC 35.4 RDW 14.2 H Plt Count 205 MPV 9.3 Immature Gran % Neutrophils % Lymphocytes % Monocytes % Eosinophils % Basophils % Nucleated RBC % Absolute Neutrophils Absolute Lymphocytes Absolute Monocytes Absolute Eosinophils Absolute Basophils VBG pH VBG pCO2 VBG pO2 VBG HCO3 VBG Total CO2 VBG O2 Saturation VBG Base Excess VBG Lactate 0.8 Sodium 139 Potassium 3.2 L Chloride 104 Carbon Dioxide 25.0 Anion Gap 10.0 BUN 14 Creatinine 0.9 Est GFR (CKD-EPI 2020) 97.17 Glucose 207 H Calcium 8.3 L Magnesium 1.6 L Total Bilirubin 0.55 AST 17 ALT 23 Alkaline Phosphatase 158 H Troponin I NT-Pro-B Natriuret Pep Total Protein 6.4 Albumin 3.0 L Lipase TSH Urine Color Urine Clarity Urine pH Ur Specific [place] Urine Protein Urine Ketones Urine Blood Urine Nitrite Urine Bilirubin Urine Urobilinogen Ur Leukocyte Esterase Urine RBC Urine WBC Ur Epithelial Cells Urine Crystals Urine Bacteria Urine Casts Urine Mucus Ur Culture Indicated? Urine Glucose PAWSS Have you Been Recently Intoxicated or Drunk Within the Last 30 days?: No Have you Ever Experienced Previous Episodes of Alcohol Withdrawal?: No Have you ever Experienced Withdrawal Seizures?: No Have you ever Experienced Delirium Tremens(DT)s?: No Have you ever undergone Alcohol Rehabilitation Treatment (i.e, inpt ot outpatient treatment programs)?: No Have you ever Experienced Blackouts?: No Have you ever Combined Alcohol with other Downers within the last 90 days?: No Have you ever Combined Alcohol with any other Substance of Abuse during the last 90 days?: No Positive Blood Alcohol level on Presentation? [PCS.BAL]: No Evidence of Increased Autonomic Activity (i.e. HR>120, tremor, sweating, agitation, nausea)?: No Result: 0 Time Spent with Patient Time Spent with Patient: >50 minutes Time was spent: preparing to see the patient(eg.review tests), obtaining and/or reviewing separately otained hiistory, ordering medications,tests, procedures, referring, communicating with other health child caregiver private home, indepentently interpreting results, counseling the patient and care coordination
[2024-11-15] MEDS: metFORMIN 500 MG TAB PO (16:56)
[2024-11-15 17:49] LABS: Osmolality Serum 308 mOsm/kg (275-295)
[2024-11-15] MEDS: Famotidine 20 MG TAB 40 MG PO (20:08)
[2024-11-15] MEDS: Enoxaparin 40 MG/0.4 ML SYR SC (20:09)
[2024-11-15] MEDS: Rosuvastatin 20 MG TAB 40 MG PO (20:09)
--- NOTE | 2024-11-15 21:38 | W.PC.ACHO ---
Registration Status: Primary Language: Preferred Language: ED Information & Data Chief Complaint Diabetes 11/14/24 16:39 Chief Complaint Diabetes 11/14/24 16:23 Triage Note Pt states he has been out of 11/14/24 16:17 insulin and unable to check glucose since july. Glucose high in triage. 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 Peripheral neuropathy Kidney stones Osteomyelitis Diabetic foot ulcer Tubular adenoma of colon (10/18/14) NSTEMI (non-ST elevated myocardial infarction) (07/11/17) (Last Reviewed 11/14/24 @ 19:46 by Keven Garcia) Lesion of oral mucosa Colonoscopy - IV Sedation (10/14/14) Cholecystectomy S/P coronary artery stent placement Most Recent Vital Signs Temperature 37.3 C 11/15/24 11:24 Temperature Source Tympanic 11/15/24 11:24 Pulse 83 11/15/24 16:58 Pulse 83 11/15/24 16:58 Respiratory Rate 16 11/15/24 16:58 Respiratory Effort Normal, Non-Labored 11/14/24 21:00 Respiratory Depth Normal 11/14/24 21:00 Respiratory Pattern Normal 11/14/24 21:00 Blood Pressure 103/61 11/15/24 16:58 Blood Pressure Mean 71 11/15/24 16:58 Blood Pressure Position Sitting 11/14/24 16:39 Pulse Oximetry 94 11/15/24 16:58 Oxygen Delivery Method Room Air 11/15/24 08:20 Oxygen Flow Rate 0 11/15/24 08:20 Pain Level 0 11/15/24 07:46 Allergies bee venom protein (honey bee) Allergy (Severe, Verified 11/14/24 18:06) Swelling/Edema Penicillins Allergy (Unknown, Verified 11/14/24 18:06) Rash Anaphylactic reaction shellfish derived Allergy (Unknown, Verified 11/14/24 18:06) Rash; swelling Active Medications Generic Name Dose Route Start Last Admin Trade Name Freq PRN Reason Stop Dose Admin Albuterol Sulfate 2.5 mg 11/14/24 21:01 11/15/24 02:29 Albuterol 2.5 Mg/3 Ml Inh Soln Vial UPD 2.5 mg Q2H PRN PRN Administration Budesonide/Formoterol Fumarate 2 puff 11/14/24 21:01 11/15/24 19:25 Budesonide/Formoterol 160/4.5 6 Gm 60 Puff Inh IH 2 puffs BID KARAN Administration Bupropion HCl 300 mg 11/15/24 08:30 11/15/24 07:59 Bupropion-Xl 150 Mg Tabcr PO 300 mg QAM KARAN Administration Clopidogrel Bisulfate 75 mg 11/15/24 08:30 11/15/24 08:01 Clopidogrel 75 Mg Tab PO 75 mg DAILY KARAN Administration Cyanocobalamin 1,000 mcg 11/15/24 08:30 11/15/24 07:59 Cyanocobalamin 500 Mcg Tab PO 1,000 mcg DAILY KARAN Administration Empagliflozin 25 mg 11/15/24 08:30 11/15/24 08:01 Empaglifozin 25 Mg Tab PO 25 mg DAILY KARAN Administration Enoxaparin Sodium 40 mg 11/14/24 21:30 11/15/24 20:09 Enoxaparin 40 Mg/0.4 Ml Syr SC 40 mg HS KARAN Administration Famotidine 40 mg 11/14/24 21:11 11/15/24 20:08 Famotidine 20 Mg Tab PO 40 mg HS KARAN Administration Insulin Aspart 0 units 11/15/24 12:00 11/15/24 16:53 Insulin Aspart 300 Units/3 Ml Pen SC 6 units 0800,1200,1700,2200 KARAN Administration Protocol Ketoconazole 0 gm 11/15/24 08:30 11/15/24 09:03 Ketoconazole 2% Cream 15 Gm Tube TP Not Given DAILY KARAN Lisinopril 5 mg 11/15/24 08:30 11/15/24 08:00 Lisinopril 5 Mg Tab PO 5 mg DAILY KARAN Administration Magnesium Oxide 400 mg 11/15/24 08:30 11/15/24 08:00 Magnesium Oxide 400 Mg Tab PO 400 mg DAILY KARAN Administration Metformin HCl 500 mg 11/15/24 17:00 11/15/24 16:56 Metformin 500 Mg Tab PO 500 mg BID@0800,1700 KARAN Administration Metoprolol Tartrate 25 mg 11/15/24 08:30 11/15/24 20:09 Metoprolol 25 Mg Tab PO 25 mg BID KARAN Administration Pantoprazole Sodium 40 mg 11/15/24 07:30 11/15/24 07:34 Pantoprazole 40 Mg Tabcr PO 40 mg 0730 KARAN Administration Rosuvastatin Calcium 40 mg 11/15/24 20:00 11/15/24 20:09 Rosuvastatin 20 Mg Tab PO 40 mg HS KARAN Administration IV IV Catheter Type [Right Wrist] Saline Lock IV Catheter Gauge [Right Wrist 18 ] Diagnostics 11/15/24 11/15/24 11/14/24 Range/Units 06:33 05:40 21:01 WBC 5.09 (4.4-10.8) 10^3/uL RBC 4.83 (4.36-5.78) 10^6/uL Hgb 13.8 (13.5-17.5) g/dL Hct 39.0 L (40.0-50.0) % MCV 81 (80-95) fL MCH 28.6 (27.0-33.0) pg MCHC 35.4 (32.0-36.0) % RDW 14.2 H (11.8-14.1) % Plt Count 205 (130-400) 10^3/uL MPV 9.3 (8.0-11.0) fL VBG Lactate 0.8 (0.6-1.4) mmol/L Sodium 139 (136-145) mmol/L Potassium 3.2 L (3.5-5.1) mmol/L Chloride 104 (98-107) mmol/L Carbon Dioxide 25.0 (21.0-32.0) mmol/L Anion Gap 10.0 (3-11) mmol/L BUN 14 (7-18) mg/dL Creatinine 0.9 (0.70-1.30) mg/dL Est GFR (CKD-EPI 2020) 97.17 (mL/min/1.73m2) Glucose 207 H (74-106) mg/dL Calcium 8.3 L (8.5-10.1) mg/dL Magnesium 1.6 L (1.8-2.4) mg/dL Total Bilirubin 0.55 (0.2-1.0) mg/dL AST 17 (15-37) U/L ALT 23 (16-63) U/L Alkaline Phosphatase 158 H (46-116) U/L Total Protein 6.4 (6.4-8.2) g/dL Albumin 3.0 L (3.4-5.0) g/dL Urine Color Cancelled Urine Clarity Cancelled Urine pH Cancelled Ur Specific [place] Cancelled Urine Protein Cancelled Urine Ketones Cancelled Urine Blood Cancelled Urine Nitrite Cancelled Urine Bilirubin Cancelled Urine Urobilinogen Cancelled Ur Leukocyte Esterase Cancelled Urine Glucose Cancelled [id number] Documentation Fingerstick Glucose Start: 11/14/24 20:07 Freq: AC & HS Status: Active Protocol: Activity Type Activity Date Activity User E-sign Co-sign Detail Recorded Client Recorded Date Recorded By Document 11/15/24 16:51 BKG DAEMON(10) [id number] 11/15/24 16:52 BKG DAEMON(10) Intake and Output - 24 Hour Total 11/14/24 16:10 thru 11/15/24 20:15 Intake Total 3645.833 Output Total 3350 Balance 295.833 Weight 102.058 kg Intake: IV 2425.833 Oral 1220 Output: Urine 3350 Other: Urine Color Yellow Urine Appearance Cloudy Urine Odor Normal Comment Pt arrived with obvious incontinent episode and voided further into commode but mixed with stool so not measured. Stool Size Moderate Stool Characteristics Liquid Foamy Emesis Description Retching Bile Falls Risk Assessment History of Falls No History 11/14/24 21:00 Contributing Factors Incontinence 11/14/24 21:00 Ambulatory Aids Independent 11/14/24 21:00 Tubes/Lines With any additional score 11/14/24 21:00 Gait Evaluation No gait disturbance 11/14/24 21:00 Cognition No cognitive impairment 11/14/24 21:00 Fall Total Score 23 11/14/24 21:00 Level of Risk Standard/Low Risk 11/14/24 21:00 Problems (Last Reviewed 11/14/24 @ 19:46 by Keven Garcia) CKD (chronic kidney disease) (Chronic) Hyperosmolar hyperglycemic state (HHS) (Acute) PAD (peripheral artery disease) (Chronic) Orthostatic hypotension (Chronic) Type 2 diabetes mellitus with retinopathy, with long-term current use of insulin (Chronic 10/27/17) Essential hypertension (Chronic 07/06/13) Depression (Chronic 11/25/11) v v v v v v v v v Sending and/or Receiving Nurses: Please use comment section below to note any information pertinent to the patient hand-off not included above. Information / Comments: No questions Report received from: Keven Barry
[2024-11-15 21:43] LABS: Osmolality, Urine 560 mOsm/kg (150-1150)
[2024-11-16 03:56] VITALS: BP 103/71; PULSE 72; RESP 18; TEMP 36.6; O2SAT 96
[2024-11-16 06:40] LABS: HCT 39.5 % (40.0-50.0); HGB 13.5 g/dL (13.5-17.5); MCH 28.6 pg (27.0-33.0); MCHC 34.2 % (32.0-36.0); MCV 84 fL (80-95); MPV 9.4 fL (8.0-11.0); Platelet Count 203 10^3/uL (130-400); RBC 4.72 10^6/uL (4.36-5.78); RDW 14.6 % (11.8-14.1); RDW-SD 44.2 fL; WBC 4.69 10^3/uL (4.4-10.8)
[2024-11-16 07:10] LABS: ALT 22 U/L (16-63); AST 21 U/L (15-37); Albumin 2.8 g/dL (3.4-5.0); Alkaline Phosphatase 149 U/L (46-116); Anion Gap 8.6 mmol/L (3-11); BUN 16 mg/dL (7-18); Bilirubin, Total 0.61 mg/dL (0.2-1.0); CO2 22.4 mmol/L (21.0-32.0); CREATININE 1.1 mg/dL (0.70-1.30); Calcium 8.4 mg/dL (8.5-10.1); Chloride 103 mmol/L (98-107); Estimated GFR 76.37 (mL/min/1.73m2); Glucose 196 mg/dL (74-106); Potassium 3.8 mmol/L (3.5-5.1); Sodium 134 mmol/L (136-145); Total Protein 6.4 g/dL (6.4-8.2)
[2024-11-16 07:37] VITALS: BP 141/90; PULSE 83; RESP 18; TEMP 36.9; O2SAT 99
[2024-11-16] MEDS: Budesonide/Formoterol 160/4.5 6 GM 60 PUFF INH IH (07:39)
[2024-11-16] MEDS: Insulin Aspart 300 UNITS/3 ML PEN SC ×2 (08:07→12:00)
[2024-11-16] MEDS: buPROPion-XL 150 MG TABCR 300 MG PO (08:08)
[2024-11-16] MEDS: Lisinopril 5 MG TAB PO (08:08)
[2024-11-16] MEDS: metFORMIN 500 MG TAB PO (08:08)
[2024-11-16] MEDS: Sertraline 25 MG TAB PO (08:09)
[2024-11-16] MEDS: Clopidogrel 75 MG TAB PO (08:09)
[2024-11-16] MEDS: Cyanocobalamin 500 MCG TAB 1000 MCG PO (08:09)
[2024-11-16] MEDS: Empaglifozin 25 MG TAB PO (08:09)
[2024-11-16] MEDS: Pantoprazole 40 MG TABCR PO (08:09)
[2024-11-16] MEDS: Magnesium Oxide 400 MG TAB PO (08:09)
[2024-11-16] MEDS: Metoprolol 25 MG TAB PO (08:38)
[2024-11-16] MEDS: Ketoconazole 2% CREAM 15 GM TUBE TP (08:38)
--- NOTE | 2024-11-16 09:58 | DSE_ITS ---
Date of service: 11/16/24 Time of Service: 09:58 DS: Diagnosis Discharge Diagnosis (1) Hyperosmolar hyperglycemic state (HHS): Status: Acute (2) Type 2 diabetes mellitus with retinopathy, with long-term current use of insulin: Status: Chronic (3) Essential hypertension: Status: Chronic (4) CKD (chronic kidney disease): Status: Chronic (5) PAD (peripheral artery disease): Status: Chronic (6) Orthostatic hypotension: Status: Chronic (7) ASCVD (arteriosclerotic cardiovascular disease): (8) Hyperlipidemia: (9) Depression: Status: Chronic Discharge Plan Disposition Patient Disposition: Home W/Home Health Services Condition: Improving Discharge Details Reason For Visit: HHNC,MUSHTAQ,NIDDM,HTN Admit Date/Time: 11/14/24 20:06 Admit Provider: Keven Garcia Attending Provider: Keven Garcia [facility] Hospital Course: This 59 years old male patient with past medical history of diabetes type 2 on insulin and metformin and stopping is antidiabetic medicines for the past 2 months, CHF with last LVEF 40 to 45% in 2019, hypertension, hyperlipidemia, STEMI presented to the ED at [facility] on 10/15/2024 with chief complaint of facing bureaucratic insurance obstacles preventing him from getting supplies to test his blood sugars at home since July. The patient presented with polyuria, polydipsia. Workup in the ED was remarkable for a blood sugar of 880 without acidosis likely pointing to hyperosmolar hyperglycemic state with sodium level of 130. BUN/creatinine were 21 and 1.7 with baseline creatinine around 1.2. The patient was treated with 10 units of regular insulin IV as well as IV normal saline with improvement of blood sugar to 629. The patient was accepted to the medical surgical floor for evaluation and management of hyperosmolar hyperglycemic nonketotic state, hyponatremia, dehydration, acute kidney injury. During the stay, hyponatremia resolved and the patient was started on subcutaneous insulin before meals and at bedtime, metformin, Jardiance of which will have to continue upon discharge. Patient also stated that is agreeable to resume is basal insulin still having supplies at home. Insulin that will take was reduced to 55 units subcutaneous at at bedtime with further management to be determined by primary care practitioner. Patient was made aware that freestyle blood sugar monitor and lancets were ordered by PCP and available at his pharmacy. Patient stated that his sensor was dispatch and with the rest results within 3 to 4 days. Patient will have to follow-up with his primary care practitioner within 7 days of discharge. The patient might benefit from a cardiology referral to the fact that the last echo report available was completed in 2019. The patient will be discharged home with home health nursing to assist patient in managing his medicines as some medicine listed on his med list were put on hold and other medicines have new dosing.The patient will also benefit from a territory sales manager medical via home health to assist him. Discussed with Dr. Dalal Home Meds and New Rx's Prescriptions: New sertraline 25 mg Tablet 25 mg PO DAILY Qty: 6 0RF Rx Instructions: Take for 6 days then take 50 mg daily further adjustment as per PCP sertraline 50 mg tablet 50 mg PO DAILY Qty: 14 0RF Rx Instructions: Start after finishing the course of 25 mg orally for 6 days Continued cyanocobalamin (vitamin B-12) 1,000 mcg tablet 1,000 mcg PO DAILY Qty: 90 3RF Jardiance 25 mg tablet See Rx Instructions .ROUTE .COMPLEX Qty: 90 3RF Dose Instruction: TAKE 1 TABLET BY MOUTH DAILY Rx Instructions: TAKE 1 TABLET BY MOUTH DAILY lisinopril 2.5 mg tablet 2.5 mg PO DAILY Qty: 90 3RF magnesium oxide 400 mg (241.3 mg magnesium) tablet 400 mg PO DAILY Qty: 90 3RF metoprolol succinate 50 mg tablet extended release 24 hr 50 mg PO DAILY Qty: 90 3RF pantoprazole 40 mg tablet,delayed release (DR/EC) See Rx Instructions .ROUTE .COMPLEX Qty: 90 3RF Dose Instruction: TAKE 1 TABLET BY MOUTH EVERY MORNING AT LEAST 30 MINUTES BEFORE FIRST MEAL Rx Instructions: TAKE 1 TABLET BY MOUTH EVERY MORNING AT LEAST 30 MINUTES BEFORE FIRST MEAL rosuvastatin [Crestor] 40 mg tablet 40 mg PO HS Qty: 90 3RF Rx Instructions: FOR CHOLESTEROL & HEART PROTECTION spironolactone 25 mg tablet 12.5 mg PO DAILY Qty: 45 3RF (DME) lancing device with lancets Kit See Rx Instructions .Route Qty: 1 0RF Rx Instructions: Check blood sugars QID DX: E11.9. He is insulin dependent DM. polyethylene glycol 3350 [Miralax] 17 gram/dose powder 17 g PO DAILY PRN (Reason: constipation) Qty: 119 0RF budesonide-formoterol [Symbicort] 160-4.5 mcg/actuation HFA aerosol inhaler 2 puff inhalation BID Qty: 10.2 0RF (DME) pen needle, diabetic [BD Ultra-Fine Short Pen Needle] 31 gauge x 5/16 needle See Rx Instructions .ROUTE .COMPLEX Qty: 400 3RF Dose Instruction: USE ONCE DAILY TO ADMINISTER LANTUS Rx Instructions: Use as directed to administer insulin 4 times daily. ketoconazole 2 % cream 1 applic topical DAILY Qty: 120 6RF Rx Instructions: Apply to toenails once daily nitroglycerin 0.4 mg tablet, sublingual 0.4 mg SL Q5M MDD 3 doses PRN (Reason: chest pain) Qty: 30 0RF Rx Instructions: Take 0.4 mg every 5 minutes up to 3 doses; seek emergent medical care if no relief clopidogrel 75 mg tablet See Rx Instructions .ROUTE .COMPLEX Qty: 90 0RF Dose Instruction: TAKE 1 TABLET BY MOUTH DAILY Patient Comments: Pt. states his PCP IS aware he has been off this medication for 2 weeks Rx Instructions: TAKE 1 TABLET BY MOUTH DAILY insulin aspart U-100 [Novolog FlexPen U-100 Insulin] 100 unit/mL (3 mL) insulin pen See Rx Instructions subcut AC Qty: 45 3RF Patient Comments: pt has not been taking since jul due to lack of availability Rx Instructions: 12-16 units per sliding scale subcut before meals; cholecalciferol (vitamin D3) 25 mcg (1,000 unit) tablet 2,000 mcg PO DAILY Qty: 60 0RF (DME) FreeStyle Flako 3 Sensor Device See Rx Instructions .Route Qty: 6 12RF Rx Instructions: DX: E11.9. Insulin Dependent DM type II. Keep A1c below 7. (DME) Diabetic Shoes See Rx Instructions .Route .MEDSUPPLY Qty: 1 0RF Rx Instructions: As directed (DME) blood-glucose meter [FreeStyle Lite Meter] Kit See Rx Instructions .Route Qty: 1 0RF Rx Instructions: Check blood sugar QID DX: E11.9. Keep A1c below 7 (DME) lancets [FreeStyle Lancets] 28 gauge misc See Rx Instructions .Route Qty: 100 2RF Rx Instructions: Check blood sugars QID. DX: E11.9. Keep A1c below 7. (DME) blood-glucose meter [Blood Glucose Monitoring] Kit See Rx Instructions .Route Qty: 1 0RF Rx Instructions: Check blood sugars QID. DX: E11.9. Keep A1c below 7. FILL WITH WHAT INSURANCE WILL COVER (DME) Blood Glucose Test Strip See Rx Instructions .Route Qty: 400 3RF Rx Instructions: Check Blood sugar QID. DXE11.8. Keep A1c below 7. FILL WITH WHAT EVER INSURANCE WILL COVER. famotidine 40 mg tablet 40 mg PO QHS Qty: 30 0RF Changed Ozempic 2 mg/dose (8 mg/3 mL) pen injector 0.25 mg subcut QWEEK Qty: 3 0RF insulin degludec [Tresiba FlexTouch U-100] 100 unit/mL (3 mL) insulin pen 50 unit subcut QHS Qty: 0 0RF Held bupropion HCl 150 mg tablet extended release 24 hr 300 mg PO QAM Qty: 180 3RF Hold Instructions: Resume on 12/19/24. Resume as per discussion with PCP Rx Instructions: Dose increased 07/2022 metformin 1,000 mg tablet 1,000 mg PO BID Qty: 180 3RF Hold Instructions: Resume on 12/19/24. Dose changed Rx Instructions: isosorbide mononitrate 30 mg tablet extended release 24 hr See Rx Instructions .ROUTE .COMPLEX Qty: 28 11RF Hold Instructions: Resume on 12/19/24. Resume s/p discussion with/ and PCP management Dose Instruction: TAKE 1 TABLET BY MOUTH DAILY Rx Instructions: TAKE 1 TABLET BY MOUTH DAILY sertraline [Zoloft] 100 mg tablet 200 mg PO DAILY Qty: 180 3RF Hold Instructions: Resume on 12/19/24. Dose changed to restart Discontinued midodrine 10 mg tablet 10 mg PO TID Qty: 90 3RF Rx Instructions: do not give last dose of day after 6PM or within 4 hrs of bedtime No Action (DME) lancets Misc See Rx Instructions .ROUTE .MEDSUPPLY Qty: 400 3RF Rx Instructions: Check blood glucose four times daily. On insulin. Dispense brand that is covered by insurance and compatible with blood sugar testing system Discharge Instructions Stand Alone Forms: Nursing Discharge Form Referrals: Oscar Weinstein DO [Primary Care Provider] - (Please call your PCP to be seen within 7 days of discharge, for a hospital discharge follow up. ) Activity:: Activity as Tolerated Equipment/Supplies:: No Equipment Needed Diet:: heart healthy DM Discharge Orders Discharge Orders: Discharge Order (Routine); Ordered 11/16/24 Ordered By: Marianela Duque DS: Summary Time Spent with Patient providing and/or coordinating discharge services: Greater than 30 minutes Status at Discharge Functional status at discharge: independent ambulation Overall status at discharge: patient is progressing back to baseline Mental Status: mental status grossly normal Speech and Movement: speech and movement normal Mood: congruent mood Affect: normal affect Quality:SDOH Health Related Social Needs: No Data to Display Exam Narrative Exam Narrative: Constitutional The patient is lying in bed comfortable , without acute distress Neuro:alert and oriented to self, person, place, time and situation. No neurological focal deficit Resp:Unlabored breathing, clear lung bilaterally Cardio: regular rhythm, S1, S2, no murmur, capillary refill<3 sec., bilateral radial and dorsalis pedis pulses are palpable GI: Abdomen is not distended, soft and non tender, bowel sounds are present : Negative Costovertebral angle tenderness Back/spine/Pelvis: No back tenderness, normal alignment Integumentary: dry scabs to right 2nd toe and right anterior tibia w/o erythema Extremities: strength 5/5 to bilateral lower and upper extremities Psych: RASS 0, congruent mood and normal affect. Psych Mental Status: mental status grossly normal Speech and Movement: speech and movement normal Mood: congruent mood Affect: normal affect DS: Data Vitals/I&O Vitals and I&O: Vital Signs Temperature 36.9 C 11/16/24 07:37 Temperature Source Tympanic 11/16/24 07:37 Pulse 83 11/16/24 07:37 Pulse 83 11/15/24 16:58 Respiratory Rate 18 11/16/24 07:37 Respiratory Effort Normal, Non-Labored 11/14/24 21:00 Respiratory Depth Normal 11/14/24 21:00 Respiratory Pattern Normal 11/14/24 21:00 Blood Pressure 141/90 H 11/16/24 07:37 Blood Pressure Mean 71 11/15/24 16:58 Blood Pressure Position Sitting 11/14/24 16:39 Pulse Oximetry 99 11/16/24 07:37 Oxygen Delivery Method Room Air 11/16/24 07:37 Oxygen Flow Rate 0 11/16/24 07:37 Pain Level 0 11/15/24 22:33 Intake & Output 11/15/24 11/15/24 11/16/24 11:59 23:59 11:59 Intake Total 573.333 / 1395.833 822.5 / 1395.833 250 / 250 Output Total 550 / 1350 800 / 1350 650 / 650 Balance 23.333 / 45.833 22.5 / 45.833 -400 / -400 Intake: IV 393.333 / 425.833 32.5 / 425.833 Oral 180 / 970 790 / 970 250 / 250 Output: Urine 550 / 1350 800 / 1350 650 / 650 Other: Urine Color Yellow Yellow Yellow Urine Appearance Clear Cloudy Clear Urine Odor Normal Normal Stool Size Moderate Stool Characteristics Liquid Foamy Emesis Description Retching Bile Data Completed and Pending Labs on day of discharge: Labs from last 24 hours 11/16/24 11/14/24 11/14/24 06:22 16:32 16:10 WBC 4.69 RBC 4.72 Hgb 13.5 Hct 39.5 L MCV 84 MCH 28.6 MCHC 34.2 RDW 14.6 H Plt Count 203 MPV 9.4 Sodium 134 L Potassium 3.8 Chloride 103 Carbon Dioxide 22.4 Anion Gap 8.6 BUN 16 Creatinine 1.1 Est GFR (CKD-EPI 2020) 76.37 Glucose 196 H Serum Osmolality 308 H Calcium 8.4 L Magnesium 2.0 Total Bilirubin 0.61 AST 21 ALT 22 Alkaline Phosphatase 149 H Total Protein 6.4 Albumin 2.8 L Urine Osmolality 560 PFSH All Active Problems (Updated 11/15/24 @ 06:09 by Keven Garcia) CKD (chronic kidney disease) (Chronic) Hyperosmolar hyperglycemic state (HHS) (Acute) Intermittent gross hematuria (Acute) Constipation (Acute) Cough (Acute) Onychomycosis (Acute) PAD (peripheral artery disease) (Chronic) Pain in left foot (Acute) Ulcer of right foot limited to breakdown of skin (Acute) Compression fracture of L1 vertebra (Acute) Orthostatic hypotension (Chronic) Dizziness (Acute) Foot ulcer, left (Acute) Vitamin B12 deficiency (Acute) Subclinical hypothyroidism (Chronic ~02/2023) Monitor Obesity (Chronic) Hypomagnesemia (Chronic) Microalbuminuria (Chronic) Callus of foot (Chronic) Type 2 diabetes mellitus with retinopathy, with long-term current use of insulin (Chronic 10/27/17) Restless leg syndrome (Chronic 10/31/14) Sleep Medicine Obstructive sleep apnea, adult (Chronic 10/31/14) Pt. states he has not been using device 09/01/20 Severe, C-pap, Dr. Almeida continue on CPAP therapy with mask of choice,heated humidification and ramp. pressure should be set at 12 cm/H2o,alternatively auto CPAP 8-14 cm/H2O can be used. (sleep study note cameron Nonproliferative diabetic retinopathy (Chronic) Noncompliance with medication regimen (Chronic 07/06/13) Erectile dysfunction (Chronic 07/06/13) Essential hypertension (Chronic 07/06/13) Depression (Chronic 11/25/11) Sensorineural hearing loss, bilateral (Chronic 11/24/17) Conductive hearing loss in left ear (Acute) Medical History ASCVD (arteriosclerotic cardiovascular disease) (07/28/17) NSTEMI with HFrEF 07/11/2017 s/p MADONNA to [place]AD [place] 07/14/2017 [place] [facility] Type 2 diabetes mellitus with hyperglycemia, with long-term current use of insulin (11/25/15) Hyperlipidemia (07/06/13) Gastroesophageal reflux disease Chronic HFrEF (heart failure with reduced ejection fraction) (07/20/18) 2018: LVEF 30-35% at presentation; most recent echo 07/24/2020: LVEF 40-45% PVD (peripheral vascular disease) Autonomic dysfunction with type 2 diabetes mellitus Peripheral neuropathy Kidney stones Osteomyelitis Diabetic foot ulcer Tubular adenoma of colon (10/18/14) NSTEMI (non-ST elevated myocardial infarction) (07/11/17) 06/2017: S/p MADONNA to mLAD at [facility]; DAPT for a minimum of 1 year Surgical History Lesion of oral mucosa 01/29/[address] Schuster. 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 No dysplasia. PAS stain negative for fungal organisms Colonoscopy - IV Sedation (10/14/14) tubular adenoma Dr. Blancas Cholecystectomy S/P coronary artery stent placement s/p MADONNA to LAD mid 2; Dr. 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
--- NOTE | 2024-11-16 11:38 | PDOC.CMDIS ---
Date of service: 11/16/24 Time of Service: 11:38 LACE Index Scoring Tool Questions: Length of Stay (in days): 2 Was the patient admitted via the E.D.?: Yes Comorbidities: Diabetes w/o Complication and Liver or Renal Disease E.D. Visits: 7 Answers: Total Score: 14 Risk of Readmission: High Risk Care Management Discharge Plan Reason for Hospitalization: HHNC, NIDDM Discharge Plan: Discharge home via private vehicle with family. New [facility] RN to support diabetic education and management after discharge. Follow up with PCP and discharge plan of care as directed. Patient/Family Education Needs: Review discharge instructions, limitations, medications and plan to follow up with PCP. Discuss ask me three. Services Needed at Discharge: Home Health Care Services (New [facility] RN) SDOH Health Related Social Needs: No Data to Display
--- NOTE | 2024-11-16 14:28 | PDOC.HHF2F_ITS ---
Home Health Referral Home Health Orders Clinical synopsis of why skilled professionals are needed: This 59 years old male patient with past medical history of diabetes type 2 on insulin and metformin and stopping is antidiabetic medicines for the past 2 months, CHF with last LVEF 40 to 45% in 2020, hypertension, hyperlipidemia, STEMI presented to the ED at [facility] on 10/15/2024 with chief complaint of facing bureaucratic insurance obstacles preventing him from getting supplies to test his blood sugars at home since July. The patient presented with polyuria, polydipsia. Workup in the ED was remarkable for a blood sugar of 880 without acidosis likely pointing to hyperosmolar hyperglycemic state with sodium level of 130. BUN/creatinine were 21 and 1.7 with baseline creatinine around 1.2. The patient was treated with 10 units of regular insulin IV as well as IV normal saline with improvement of blood sugar to 629. The patient was accepted to the medical surgical floor for evaluation and management of hyperosmolar hyperglycemic nonketotic state, hyponatremia, dehydration, acute kidney injury. During the stay, hyponatremia resolved and the patient was started on subcutaneous insulin before meals and at bedtime, metformin, Jardiance of which will have to continue upon discharge. Patient also stated that is agreeable to resume is basal insulin still having supplies at home. Insulin that will take was reduced to 55 units subcutaneous at at bedtime with further management to be determined by primary care practitioner. Patient was made aware that freestyle blood sugar monitor and lancets were ordered by PCP and available at his pharmacy. Patient stated that his sensor was dispatch and with the rest results within 3 to 4 days. Patient will have to follow-up with his primary care practitioner within 7 days of discharge. The patient might benefit from a cardiology referral to the fact that the last echo report available was completed in 2019. The patient will be discharged home with home health nursing to assist patient in managing his medicines as some medicine listed on his med list were put on hold and other medicines have new dosing. The patient will also benefit from a medical sales associate via home health to assist him. Discussed with Dr. Dalal Medical diagnosis necessitation home health referral: DM type II on insulin and oral anti-hyperglycemic agents, HTN Registered Nurse: Check all that apply Instruct on new or changed medication(s)/assess compliance: Ordered Assess for exacerbation of medical condition, instruct patient/caregivers on signs and symptoms to report for early detection: Ordered Folding Machine Feeder: Assist with community resources: Ordered Assist with intermediate care planning: Ordered Other: Inability to navigate available insurance coverage to obtain maintenance medicine and medical supply Home Bound Status Describe why leaving home would require a considerable and taxing effort: Requires frequent rest periods (Increased in rest periods d/t blood sugar control on new meds) and Safety Concerns: describe (new meds could ) Encounter Date and Reason: I certify that a FTF encounter for this patient was performed on November 16, 2024 and that such encounter was related to the primary reason the patient requires home health services. The encounter was conducted in the following manner: * By me as the certifying physician, CARROT GRADER INSPECTOR, PA or * By an inpatient physician, CARROT GRADER INSPECTOR or PA during an inpatient stay who communicated findings to me, Certification And Authentication I certify that I composed the above information based on my clinical judgment relating to this patient's medical condition and, if applicable, clinical findings communicated to me by the NPP or inpatient physician who performed the FTF encounter. Name of Provider that will be monitoring home health services: Oscar Weinstein
== END 2024-11-16 15:01 | disposition home health service (06) | DRG 638 ==
LOC: ER 20:52 → ICU 21:00 → MS 11-15 20:50
PROVIDERS: Admitting Provider Family Medicine; Emergency Provider Physician Assistant; PCP Family Medicine; Visit Provider Family Medicine
DX: E11.00 Type 2 diabetes mellitus with hyperosmolarity without nonketotic hyperglycemic-hyperosmolar coma (NKHHC) (principal); E87.1 Hypo-osmolality and hyponatremia; N17.9 Acute kidney failure, unspecified; E87.21 Acute metabolic acidosis; E11.319 Type 2 diabetes mellitus with unspecified diabetic retinopathy without macular edema; I12.9 Hypertensive chronic kidney disease with stage 1 through stage 4 chronic kidney disease, or unspecified chronic kidney disease; N18.31 Chronic kidney disease, stage 3a; E11.22 Type 2 diabetes mellitus with diabetic chronic kidney disease; I95.1 Orthostatic hypotension; I73.9 Peripheral vascular disease, unspecified; E78.5 Hyperlipidemia, unspecified; I25.10 Atherosclerotic heart disease of native coronary artery without angina pectoris; F32.A Depression, unspecified; Z79.4 Long term (current) use of insulin; Z79.02 Long term (current) use of antithrombotics/antiplatelets; I25.2 Old myocardial infarction; N20.0 Calculus of kidney; E66.9 Obesity, unspecified; K59.00 Constipation, unspecified; R31.0 Gross hematuria; E53.8 Deficiency of other specified B group vitamins; E03.8 Other specified hypothyroidism; E83.42 Hypomagnesemia; Z95.5 Presence of coronary angioplasty implant and graft; K21.9 Gastro-esophageal reflux disease without esophagitis; Z91.148 Patient's other noncompliance with medication regimen for other reason; G47.33 Obstructive sleep apnea (adult) (pediatric); H90.3 Sensorineural hearing loss, bilateral; G25.81 Restless legs syndrome; E86.0 Dehydration; E11.42 Type 2 diabetes mellitus with diabetic polyneuropathy
CPT/HCPCS: 00123; 36415; 36416; 80048; 80053; 82805; 82962; 83690; 83935; 85027; 93005; 93306; 94640; 96360; 96361; 99285; J1650; 81003; 81015; 83605; 83735; 83880; 83930; 84443; 84484; 85025; 93010; 94664; 99223; 99233; 99239; J1815; J3475; J3490; J7613

== ENCOUNTER → 2025-01-01 14:23 | Outpatient (BNVA) | payer MEDICARE, MEDICAID, SELFPAY | PROVIDERS: PCP Family Medicine; Referring Provider Family Medicine; Visit Provider Urology | DX: N20.0 Calculus of kidney (principal) | CPT/HCPCS: 76775; 99213 ==

== ENCOUNTER 2025-01-18 17:57 | Emergency (ER) | payer MEDICARE, MEDICAID, SELFPAY ==
[2025-01-18 18:02] VITALS: BP 146/98; PULSE 108; RESP 20; TEMP 36.6; O2SAT 98
--- NOTE | 2025-01-18 18:22 | W.ED.GENAD ---
Discharge Plan Disposition Patient Disposition: Home Discharge Details Clinical Impression: Closed fracture of right great toe, Foot pain, right Primary Care Provider: Oscar Weinstein ED Provider: Kaitlynn Fritz Home Meds and New Rx's Prescriptions: No Action cyanocobalamin (vitamin B-12) 1,000 mcg tablet 1,000 mcg PO DAILY Qty: 90 3RF bupropion HCl 150 mg tablet extended release 24 hr 300 mg PO QAM Qty: 180 3RF Rx Instructions: Dose increased 07/2022 Jardiance 25 mg tablet See Rx Instructions .ROUTE .COMPLEX Qty: 90 3RF Dose Instruction: TAKE 1 TABLET BY MOUTH DAILY Rx Instructions: TAKE 1 TABLET BY MOUTH DAILY lisinopril 2.5 mg tablet 2.5 mg PO DAILY Qty: 90 3RF magnesium oxide 400 mg (241.3 mg magnesium) tablet 400 mg PO DAILY Qty: 90 3RF metoprolol succinate 50 mg tablet extended release 24 hr 50 mg PO DAILY Qty: 90 3RF pantoprazole 40 mg tablet,delayed release (DR/EC) See Rx Instructions .ROUTE .COMPLEX Qty: 90 3RF Dose Instruction: TAKE 1 TABLET BY MOUTH EVERY MORNING AT LEAST 30 MINUTES BEFORE FIRST MEAL Rx Instructions: TAKE 1 TABLET BY MOUTH EVERY MORNING AT LEAST 30 MINUTES BEFORE FIRST MEAL rosuvastatin [Crestor] 40 mg tablet 40 mg PO HS Qty: 90 3RF Rx Instructions: FOR CHOLESTEROL & HEART PROTECTION spironolactone 25 mg tablet 12.5 mg PO DAILY Qty: 45 3RF (DME) lancing device with lancets Kit See Rx Instructions .Route Qty: 1 0RF Rx Instructions: Check blood sugars QID DX: E11.9. He is insulin dependent DM. polyethylene glycol 3350 [Miralax] 17 gram/dose powder 17 g PO DAILY PRN (Reason: constipation) Qty: 119 0RF ketoconazole 2 % cream 1 applic topical DAILY Qty: 120 6RF Rx Instructions: Apply to toenails once daily insulin degludec [Tresiba FlexTouch U-100] 100 unit/mL (3 mL) insulin pen 74 unit subcut QHS Qty: 0 0RF sertraline 50 mg tablet 50 mg PO DAILY Qty: 90 0RF clopidogrel 75 mg tablet See Rx Instructions .ROUTE .COMPLEX Qty: 90 3RF Dose Instruction: TAKE 1 TABLET BY MOUTH DAILY Patient Comments: Pt. states his PCP IS aware he has been off this medication for 2 weeks Rx Instructions: TAKE 1 TABLET BY MOUTH DAILY insulin aspart U-100 [Novolog FlexPen U-100 Insulin] 100 unit/mL (3 mL) insulin pen See Rx Instructions subcut AC Qty: 45 3RF Patient Comments: pt has not been taking since jul due to lack of availability Rx Instructions: Carb count: 1-2 servings 5 units, 3-4 20 units, 5-6 30 units, 7-10 35 units, 10+ 40 units; plus sliding scale: 135-150 1 unit, 151-165 2 units, 166-180 3 units, 181-195 4 units, 196-210 5 units, 211-225 6 units, 226-240 7 units, 241-260 8 units, 261-275 9 units, 276-290 10 units, 291-305 11 units, 306-320 12 units, 321-345 13 units, 346-360 14 units, 361-375 15 units, 376-390 16 units, 391-405 17 units, 406-420 18 units, 421-435 19 units, 436-450 20 units, 451-465 21 units, 446-480 22 units, 481-495 23 units isosorbide mononitrate 30 mg tablet extended release 24 hr See Rx Instructions .ROUTE .COMPLEX Qty: 90 3RF Dose Instruction: TAKE 1 TABLET BY MOUTH DAILY Rx Instructions: TAKE 1 TABLET BY MOUTH DAILY nitroglycerin 0.4 mg tablet, sublingual 0.4 mg SL Q5M MDD 3 doses PRN (Reason: chest pain) Qty: 30 0RF Rx Instructions: Take 0.4 mg every 5 minutes up to 3 doses; seek emergent medical care if no relief cholecalciferol (vitamin D3) 25 mcg (1,000 unit) tablet 2,000 mcg PO DAILY Qty: 60 0RF (DME) FreeStyle Flako 3 Sensor Device See Rx Instructions .Route Qty: 6 12RF Rx Instructions: DX: E11.9. Insulin Dependent DM type II. Keep A1c below 7. (DME) Diabetic Shoes See Rx Instructions .Route .MEDSUPPLY Qty: 1 0RF Rx Instructions: As directed (DME) blood-glucose meter [FreeStyle Lite Meter] Kit See Rx Instructions .Route Qty: 1 0RF Rx Instructions: Check blood sugar QID DX: E11.9. Keep A1c below 7 (DME) lancets [FreeStyle Lancets] 28 gauge misc See Rx Instructions .Route Qty: 100 2RF Rx Instructions: Check blood sugars QID. DX: E11.9. Keep A1c below 7. (DME) blood-glucose meter [Blood Glucose Monitoring] Kit See Rx Instructions .Route Qty: 1 0RF Rx Instructions: Check blood sugars QID. DX: E11.9. Keep A1c below 7. FILL WITH WHAT INSURANCE WILL COVER (DME) Blood Glucose Test Strip See Rx Instructions .Route Qty: 400 3RF Rx Instructions: Check Blood sugar QID. DXE11.8. Keep A1c below 7. FILL WITH WHAT EVER INSURANCE WILL COVER. (DME) lancets Misc See Rx Instructions .ROUTE .MEDSUPPLY Qty: 400 3RF Rx Instructions: Check blood glucose four times daily. On insulin. Dispense brand that is covered by insurance and compatible with blood sugar testing system budesonide-formoterol [Symbicort] 160-4.5 mcg/actuation HFA aerosol inhaler 2 puff inhalation BID Qty: 10.2 3RF semaglutide 0.25 mg or 0.5 mg(2 mg/1.5 mL) pen injector 0.5 mg subcut QWEEK Qty: 1.5 3RF (DME) pen needle, diabetic [BD Ultra-Fine Short Pen Needle] 31 gauge x 5/16 needle See Rx Instructions .ROUTE .COMPLEX Qty: 400 3RF Dose Instruction: USE ONCE DAILY TO ADMINISTER LANTUS Rx Instructions: Use as directed to administer insulin 4 times daily. famotidine 40 mg tablet 40 mg PO QHS Qty: 30 0RF Discharge Instructions Instructions: Walking Boot Additional Instructions: Please call podiatry first thing Tuesday morning to schedule follow-up appointment for your toe fracture I recommend that you discuss with your primary care provider what to do if your blood sugar is above your sliding scale and to discuss carb counting; a referral to a clinical nurse educator may be helpful. Wear the walking boot at all times when you are out of bed. This will keep your toes in alignment and prevent further damage. Elevate above heart level. Apply a cool compress for 15-20 minutes at a time. You may use Tylenol for discomfort. Return to emergency care for develop new severe foot pain, color change to the foot, or if you are very worried you need to be rechecked again immediately Referrals: Lyric Wright DPM [[facility] STAFF PHYSICIAN] - [facility] General Date/Time Provider Initiated Documentation: 01/18/25 18:07. [facility] Narrative: Ganesh is a 59 year old male who presents to the emergency department today for evaluation of R lateral foot pain. He reports he twisted his foot while getting out of bed around midnight last night. He now has pain to the lateral foot with ambulation and palpation. Mild swelling. No other injuries reported or distal numbness. Past medical history is significant for T2DM with mild neuropathy (some tingling at night), NSTEMI, ASCVD, HFrEF, peripheral artery/venous disease, CKD, and HTN Physical exam remarkable for tenderness to palpation to lateral aspect of right foot. No pain with palpation of other toes; he is able to wiggle his toes without difficulty. Mild swelling to lateral foot. No overlying abrasion/laceration/skin tears or obvious ecchymosis. Distal sensation intact. Full painless ROM of ankle and knee. D/dx includes but is not limited to: Fracture, soft tissue injury, sprain I independently interpreted the following tests: Right foot x-ray, fracture noted to proximal phalanx of great toe, no fracture noted along with fifth metatarsal. I did reevaluate patient, he denies pain to his great toe, does not believe he injured it, but he does have a history of neuropathy. While in the emergency department, Ganesh received a walking boot for stabilization left toe fracture. Referral made to podiatry for further follow-up/evaluation. Tachycardia noted in ED today, he has had tachycardia noted in the last couple of visits, including 01/01/2025 and 11/29/2024. Recommend close follow-up with PCP Reviewed discharge instructions with patient, including symptomatic management, podiatry follow-up, and red flags indicating need for return to emergency care Related Data Home Medications ?Medication ?Instructions ?Recorded ?Confirmed cyanocobalamin (vitamin B-12) 1,000 mcg PO DAILY #90 tab-caps 06/30/23 01/18/25 1,000 mcg tablet cholecalciferol (vitamin D3) 25 2,000 mcg (80 x 25 mcg (1,000 01/26/24 01/18/25 mcg (1,000 unit) tablet unit)) PO DAILY #60 tabs blood-glucose sensor (FreeStyle #6 ea 06/22/24 01/18/25 Flako 3 Sensor device) bupropion HCl 150 mg 24 hr tablet, 300 mg (2 x 150 mg) PO QAM #180 07/12/24 01/18/25 extended release tabs empagliflozin 25 mg tablet See Rx Instructions .Route 07/12/24 01/18/25 (Jardiance) .COMPLEX #90 tabs lisinopril 2.5 mg tablet 2.5 mg PO DAILY #90 tabs 07/12/24 01/18/25 magnesium oxide 400 mg (241.3 mg 400 mg PO DAILY #90 tab-caps 07/12/24 01/18/25 magnesium) tablet metoprolol succinate 50 mg 50 mg PO DAILY #90 tab-caps 07/12/24 01/18/25 tablet,extended release 24 hr pantoprazole 40 mg tablet,delayed See Rx Instructions .Route 07/12/24 01/18/25 release .COMPLEX #90 tabs rosuvastatin 40 mg tablet (Crestor) 40 mg PO HS #90 tab-caps 07/12/24 01/18/25 spironolactone 25 mg tablet 12.5 mg (1/2 x 25 mg) PO DAILY #45 07/12/24 01/18/25 tab-caps lancing device with lancets kit #1 ea 09/06/24 01/18/25 polyethylene glycol 3350 17 17 g PO DAILY PRN constipation 09/06/24 01/18/25 gram/dose oral powder (Miralax) #119 grams ketoconazole 2 % topical cream 1 applic topical DAILY #120 grams 10/09/24 01/18/25 Diabetic Shoes #1 ea 10/23/24 01/18/25 nitroglycerin 0.4 mg sublingual 0.4 mg sublingual Q5M PRN chest 10/23/24 01/18/25 tablet pain #30 tab-caps famotidine 40 mg tablet 40 mg PO QHS #30 tabs 11/05/24 01/18/25 blood-glucose meter (FreeStyle #1 ea 11/09/24 01/18/25 Lite Meter kit) lancets 28 gauge (FreeStyle #100 ea 11/09/24 01/18/25 Lancets) blood sugar diagnostic (Blood #400 ea 11/15/24 01/18/25 Glucose Test strips) blood-glucose meter (Blood Glucose #1 ea 11/15/24 01/18/25 Monitoring kit) lancets #400 ea 11/16/24 01/18/25 clopidogrel 75 mg tablet See Rx Instructions .Route 11/29/24 01/18/25 .COMPLEX #90 tabs insulin aspart U-100 100 unit/mL See Rx Instructions subcut AC #45 11/29/24 01/18/25 (3 mL) subcutaneous pen (Novolog mL FlexPen U-100 Insulin aspart) insulin degludec 100 unit/mL (3 74 unit (0.74 mL) subcut QHS Dx: 11/29/24 01/18/25 mL) subcutaneous pen (Tresiba E11.9 to maintain HbA1c less than FlexTouch U-100 insulin) 7% #0 SYRGS isosorbide mononitrate 30 mg See Rx Instructions .Route 11/29/24 01/18/25 tablet,extended release 24 hr .COMPLEX #90 tabs sertraline 50 mg tablet 50 mg PO DAILY #90 tabs 11/29/24 01/18/25 budesonide-formoterol HFA 160 2 puff inhalation BID #10.2 grams 12/20/24 01/18/25 mcg-4.5 mcg/actuation aerosol inhaler (Symbicort) semaglutide 0.25 mg or 0.5 mg (2 0.5 mg (0.374 mL) subcut QWEEK 12/20/24 01/18/25 mg/1.5 mL) subcutaneous pen #1.5 mL injector pen needle, diabetic 31 gauge x #400 ea 01/14/25 01/18/25 5/16 (BD Ultra-Fine Short Pen Needle) Previous Rx's ?Medication ?Instructions ?Recorded cyanocobalamin (vitamin B-12) 1,000 mcg PO DAILY #90 tab-caps 06/30/23 1,000 mcg tablet cholecalciferol (vitamin D3) 25 2,000 mcg (80 x 25 mcg (1,000 01/26/24 mcg (1,000 unit) tablet unit)) PO DAILY #60 tabs blood-glucose sensor (FreeStyle #6 ea 06/22/24 Flako 3 Sensor device) bupropion HCl 150 mg 24 hr tablet, 300 mg (2 x 150 mg) PO QAM #180 07/12/24 extended release tabs empagliflozin 25 mg tablet See Rx Instructions .Route 07/12/24 (Jardiance) .COMPLEX #90 tabs lisinopril 2.5 mg tablet 2.5 mg PO DAILY #90 tabs 07/12/24 magnesium oxide 400 mg (241.3 mg 400 mg PO DAILY #90 tab-caps 07/12/24 magnesium) tablet metoprolol succinate 50 mg 50 mg PO DAILY #90 tab-caps 07/12/24 tablet,extended release 24 hr pantoprazole 40 mg tablet,delayed See Rx Instructions .Route 07/12/24 release .COMPLEX #90 tabs rosuvastatin 40 mg tablet (Crestor) 40 mg PO HS #90 tab-caps 07/12/24 spironolactone 25 mg tablet 12.5 mg (1/2 x 25 mg) PO DAILY #45 07/12/24 tab-caps lancing device with lancets kit #1 ea 09/06/24 polyethylene glycol 3350 17 17 g PO DAILY PRN constipation 09/06/24 gram/dose oral powder (Miralax) #119 grams ketoconazole 2 % topical cream 1 applic topical DAILY #120 grams 10/09/24 Diabetic Shoes #1 ea 10/23/24 nitroglycerin 0.4 mg sublingual 0.4 mg sublingual Q5M PRN chest 10/23/24 tablet pain #30 tab-caps famotidine 40 mg tablet 40 mg PO QHS #30 tabs 11/05/24 blood-glucose meter (FreeStyle #1 ea 11/09/24 Lite Meter kit) lancets 28 gauge (FreeStyle #100 ea 11/09/24 Lancets) blood sugar diagnostic (Blood #400 ea 11/15/24 Glucose Test strips) blood-glucose meter (Blood Glucose #1 ea 11/15/24 Monitoring kit) lancets #400 ea 11/16/24 clopidogrel 75 mg tablet See Rx Instructions .Route 11/29/24 .COMPLEX #90 tabs insulin aspart U-100 100 unit/mL See Rx Instructions subcut AC #45 11/29/24 (3 mL) subcutaneous pen (Novolog mL FlexPen U-100 Insulin aspart) insulin degludec 100 unit/mL (3 74 unit (0.74 mL) subcut QHS Dx: 11/29/24 mL) subcutaneous pen (Tresiba E11.9 to maintain HbA1c less than FlexTouch U-100 insulin) 7% #0 SYRGS isosorbide mononitrate 30 mg See Rx Instructions .Route 11/29/24 tablet,extended release 24 hr .COMPLEX #90 tabs sertraline 50 mg tablet 50 mg PO DAILY #90 tabs 11/29/24 budesonide-formoterol HFA 160 2 puff inhalation BID #10.2 grams 12/20/24 mcg-4.5 mcg/actuation aerosol inhaler (Symbicort) semaglutide 0.25 mg or 0.5 mg (2 0.5 mg (0.374 mL) subcut QWEEK 12/20/24 mg/1.5 mL) subcutaneous pen #1.5 mL injector pen needle, diabetic 31 gauge x #400 ea 01/14/25 5/16 (BD Ultra-Fine Short Pen Needle) Allergies Allergy/AdvReac Type Severity Reaction Status Date / Time bee venom protein (honey bee) Allergy Severe Swelling/Ed Verified 01/18/25 18:08 capri Penicillins Allergy Unknown Rash Verified 01/18/25 18:08 shellfish derived Allergy Unknown Rash; Verified 01/18/25 18:08 swelling General Stated Complaint: Orthopedic VAN: 4 Review of Systems Narrative: See HPI Exam Const General: cooperative, healthy appearing, comfortable, no acute distress and well developed Nutritional Appearance: average body habitus Orientation: alert and oriented x3 Resp Effort & Inspection: normal respiratory effort and able to speak in complete sentences Skin General skin exam: no rashes or lesions noted Trauma: no lacerations or abrasions Extrem Right lower extremity: foot Details: normal capillary refill, tenderness Location: of the lateral foot and toes with normal ROM; no unusual warmth, no abrasion, no laceration, no ecchymosis, no crepitus, no foreign bodies and no puncture wound Course Vital Signs Vital signs: Vital Signs Temperature 36.6 C 01/18/25 18:02 Pulse 108 H 01/18/25 18:02 Respiratory Rate 20 01/18/25 18:02 Blood Pressure 146/98 H 01/18/25 18:02 Pulse Oximetry 98 01/18/25 18:02 Temperature 36.6 C 01/18/25 18:02 Pulse 108 H 01/18/25 18:02 Respiratory Rate 20 01/18/25 18:02 Blood Pressure 146/98 H 01/18/25 18:02 Pulse Oximetry 98 01/18/25 18:02 Oxygen Delivery Method Room Air 01/18/25 18:02 Oxygen Flow Rate 0 01/18/25 18:02 Pain Level 6 01/18/25 18:02 Medical Decision Making Imaging Data Radiologic Study: Radiologist's impression: Exam(s) XR FOOT RT COMPLETE EXAM: XR FOOT RT COMPLETE CLINICAL HISTORY: lateral foot pain with ambulation. TECHNIQUE: 2D digital imaging was performed of the right foot. Three images were obtained. AP, oblique and lateral views were obtained. COMPARISON: CR XR FOOT RT COMPLETE from 10/30/2024 FINDINGS: BONES: There is an acute fracture of the medial aspect of the base of the proximal phalanx of the great toe. The fracture extends into the joint. No bony destructive lesion is seen. Amputations are again seen involving the 2nd and 3rd MTP joints. JOINTS: No dislocation present. SOFT TISSUE: No soft tissue gas is appreciated. Vascular calcifications are present. IMPRESSION: 1. Acute nondisplaced intra-articular fracture involving the medial aspect of the base of the proximal phalanx of the great toe. 2. No radiographic findings to suggest osteomyelitis. Quality:SDOH Health Related Social Needs: No Data to Display PFSH All Active Problems (Updated 01/18/25 @ 19:17 by Kaitlynn Colunga) Foot pain, right (Acute) Closed fracture of right great toe (Acute) CKD (chronic kidney disease) (Chronic) Intermittent gross hematuria (Acute) Cough (Acute) Onychomycosis (Acute) PAD (peripheral artery disease) (Chronic) Pain in left foot (Acute) Ulcer of right foot limited to breakdown of skin (Acute) Compression fracture of L1 vertebra (Acute) Dizziness (Acute) Foot ulcer, left (Acute) Vitamin B12 deficiency (Acute) Subclinical hypothyroidism (Chronic ~02/2023) Monitor Obesity (Chronic) Hypomagnesemia (Chronic) Microalbuminuria (Chronic) Callus of foot (Chronic) Type 2 diabetes mellitus with retinopathy, with long-term current use of insulin (Chronic 10/27/17) Restless leg syndrome (Chronic 10/31/14) Sleep Medicine Obstructive sleep apnea, adult (Chronic 10/31/14) Pt. states he has not been using device 09/01/20 Severe, C-pap, Dr. Almeida continue on CPAP therapy with mask of choice,heated humidification and ramp. pressure should be set at 12 cm/H2o,alternatively auto CPAP 8-14 cm/H2O can be used. (sleep study note cameron Nonproliferative diabetic retinopathy (Chronic) Noncompliance with medication regimen (Chronic 07/06/13) Erectile dysfunction (Chronic 07/06/13) Essential hypertension (Chronic 07/06/13) Depression (Chronic 11/25/11) Sensorineural hearing loss, bilateral (Chronic 11/24/17) Conductive hearing loss in left ear (Acute) Medical History ASCVD (arteriosclerotic cardiovascular disease) (07/28/17) NSTEMI with HFrEF 07/11/2017 s/p MADONNA to mLAD on 07/14/[address] 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 [place]; DAPT for a minimum of 1 year Surgical History Lesion of oral mucosa 01/29/[address] Schuster. 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 No dysplasia. PAS stain negative for fungal organisms Colonoscopy - IV Sedation (10/14/14) tubular adenoma Dr. Blancas Cholecystectomy S/P coronary artery stent placement s/p MADONNA to LAD mid 2; Dr. Fercho Eddy, [facility], 07/14/2017 Family History Mother Essential hypertension Father Lung cancer Social History Smoking/Tobacco Use Status: Never Smoking risk assessment performed?: Yes Alcohol Intake: never Drug use: Never Substance use type: does not use Adopted: No Caregiver/Support person: Yes Foster care: No Household members: spouse Housing: apartment Number of Children: 1 Communication Needs: Hard of Hearing Education Level: high school Do you need help understanding health information?: Never 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 Pets and animals: No Current gender identity: male What is your relationship status?: How often do you talk on the phone with friends or family?: three or more times per week How often do you get together with friends or relatives?: twice per week Do you belong to any clubs or organized social groups?: no Panel score (0-1 are the most socially isolated patients): 2 What type of physical activity do you participate in: walking and other Details: skiing, snowboarding. 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
--- NOTE | 2025-01-18 18:56 | DI.RAD_ITS ---
Exam(s) XR FOOT RT COMPLETE EXAM: XR FOOT RT COMPLETE CLINICAL HISTORY: lateral foot pain with ambulation. TECHNIQUE: 2D digital imaging was performed of the right foot. Three images were obtained. AP, obl ique and lateral views were obtained. COMPARISON: CR XR FOOT RT COMPLETE from 10/30/2024 FINDINGS: BONES: There is an acute fracture of the medial aspect of the base of the proximal phalanx of the gre at toe. The fracture extends into the joint. No bony destructive lesion is seen. Amputations are ag ain seen involving the 2nd and 3rd MTP joints. JOINTS: No dislocation present. SOFT TISSUE: No soft tissue gas is appreciated. Vascular calcifications are present. IMPRESSION: 1. Acute nondisplaced intra-articular fracture involving the medial aspect of the base of the proxima l phalanx of the great toe. 2. No radiographic findings to suggest osteomyelitis. DATA REPOSITORY: RADIATION DOSE DELIVERED:
[2025-01-18 19:28] VITALS: PULSE 108; O2SAT 95
[2025-01-18 19:38] VITALS: PULSE 108; O2SAT 95
--- NOTE | 2025-01-23 10:40 | NUR.NOTE ---
Access chart to get the diagnosis for billing requisition for [facility]. Nursing Note:
== END 2025-01-18 19:38 | disposition home or self-care (01) ==
PROVIDERS: Emergency Provider Nurse Practitioner Family; PCP Family Medicine
DX: S92.411A Displaced fracture of proximal phalanx of right great toe, initial encounter for closed fracture (principal); X58.XXXA Exposure to other specified factors, initial encounter
CPT/HCPCS: 99283; 73630; 99284

== ENCOUNTER → 2025-01-21 14:39 | Outpatient (BNVA) | payer MEDICARE, MEDICAID, SELFPAY | PROVIDERS: PCP Family Medicine; Referring Provider Family Medicine; Visit Provider Podiatrist | DX: S92.411A Displaced fracture of proximal phalanx of right great toe, initial encounter for closed fracture (principal); E11.65 Type 2 diabetes mellitus with hyperglycemia; Z79.4 Long term (current) use of insulin; G62.9 Polyneuropathy, unspecified; X58.XXXA Exposure to other specified factors, initial encounter | CPT/HCPCS: 99214 ==

== ENCOUNTER 2025-02-20 02:08 | Outpatient (CLI) | payer MEDICARE, MEDICAID, SELFPAY ==
--- NOTE | 2025-02-20 14:47 | DI.RAD_ITS ---
Exam(s) XR FOOT RT COMPLETE EXAM: XR FOOT RT COMPLETE CLINICAL HISTORY: ? healing, closed fx rt great toe,s92.411a,diabetes. TECHNIQUE: 2D digital imaging was performed. COMPARISON: CR XR FOOT RT COMPLETE from 01/18/2025 FINDINGS: 3 views Previously described oblique fracture on the medial aspect of the base of the proximal phalanx of the great toe is again noted. Fracture line at this level still quite evident but there is no further d isplacement and no evidence of osteomyelitis at this level. The great toe metatarsophalangeal joint otherwise appears unremarkable. Again noted are previously described amputations involving the distal aspects of the 2nd and 3rd meta tarsals and bases of the proximal phalanges of the 2nd and 3rd toes. No new osseous findings at thes e levels. There is no radiographic evidence of osteomyelitis. IMPRESSION: The previously described minimally displaced intra-articular fracture of the medial aspect of the bas e of the proximal phalanx of the great toe appears unchanged from 01/18/2025. No obvious healing caridad dent but no further displacement. Previous amputations in the 2nd and 3rd digits as described above. No evidence of osteomyelitis. DATA REPOSITORY: RADIATION DOSE DELIVERED:
== END 2025-02-20 02:28 ==
PROVIDERS: PCP Family Medicine; Visit Provider Podiatrist
DX: S92.411D Displaced fracture of proximal phalanx of right great toe, subsequent encounter for fracture with routine healing (principal); E11.65 Type 2 diabetes mellitus with hyperglycemia; Z79.4 Long term (current) use of insulin; X58.XXXD Exposure to other specified factors, subsequent encounter; E11.319 Type 2 diabetes mellitus with unspecified diabetic retinopathy without macular edema; E53.8 Deficiency of other specified B group vitamins; I73.89 Other specified peripheral vascular diseases; G62.9 Polyneuropathy, unspecified
CPT/HCPCS: 99213; 73630

== ENCOUNTER 2025-03-01 01:08 | Outpatient (CLI) | payer MEDICARE, MEDICAID, SELFPAY ==
--- NOTE | 2025-03-04 10:13 | W.NUTRFU ---
Date of service: 03/01/25 Time of Service: 11:30 Nutrition Note NOTE: Edward referred for nutrition appt from podiatry. Edward lives in apartment with his . He has complications from chronic hyperglycemia including retinopathy, polyneuropathy, ED, microalbuminuria, PAD, CKD. Pt brought in sliding scale for his novolog administration for carb count plus corrections over glucose over 135. Edward takes insulin degludec and reports up to 76units now. Also on jardiance and semaglutide. Edward reports frustration with glucose out of control. 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 He recently cut back but still consumes them routinely. We made this the focus of out appt is that he cannot get this amount of added sugar in his diet and expect not to have health concerns develop, not just with the sugar amounts but also with other additives/chemicals in there that won't help his metabolism either. We took a short time to review carb serving sizes that equal one carb choice). We had to cut out appointment short however as towards the beginning of the appt, Edward said his glucose was >500 this morning and he was starting to get light-headed. I escorted him to ED to get checked out. I will call to follow up and offer regular outpatieint nutrition visits as Edward would benefit from frequent support and guidance with diet and accurately administering insulin. Time Spent in Nutritional Counseling and Treatment: 40 min
== END 2025-03-01 01:09 | disposition home or self-care (01) ==
LOC: DS 01:09
PROVIDERS: PCP Family Medicine; Visit Provider Podiatrist
DX: E11.319 Type 2 diabetes mellitus with unspecified diabetic retinopathy without macular edema (principal)
CPT/HCPCS: 00123; 97802

== ENCOUNTER 2025-03-01 12:09 | Emergency (ER) | payer MEDICARE, MEDICAID, SELFPAY ==
[2025-03-01 12:12] VITALS: BP 152/91; PULSE 115; RESP 24; TEMP 36.6; O2SAT 97
--- NOTE | 2025-03-01 12:15 | DI.RAD_ITS ---
Exam(s) XR CHEST 2V PA LATERAL EXAM: XR CHEST 2V PA LATERAL CLINICAL HISTORY: cough TECHNIQUE: 2D digital imaging was performed. Two views. COMPARISON: CT CT CHEST WO from 09/20/2024 FINDINGS: HEART: Normal size. Aorta: Not dilated. PULMONARY VASCULATURE: Normal. MEDIASTINUM: Unremarkable. LUNGS: Clear. PLEURAL SPACE: No pleural effusion or pneumothorax. BONE:Unremarkable for age. SOFT TISSUES: Unremarkable. IMPRESSION: No acute abnormality. DATA REPOSITORY: RADIATION DOSE DELIVERED:
--- NOTE | 2025-03-01 12:31 | ED.GENADUL_ITS ---
Discharge Plan Disposition Patient Disposition: Home Discharge Details Clinical Impression: Uncontrolled diabetes mellitus with hyperglycemia, CKD (chronic kidney disease), Acute dehydration Primary Care Provider: Oscar Weinstein ED Provider: Amauri Malone Home Meds and New Rx's Prescriptions: No Action cyanocobalamin (vitamin B-12) 1,000 mcg tablet 1,000 mcg PO DAILY Qty: 90 3RF bupropion HCl 150 mg tablet extended release 24 hr 300 mg PO QAM Qty: 180 3RF Rx Instructions: Dose increased 07/2022 Jardiance 25 mg tablet See Rx Instructions .ROUTE .COMPLEX Qty: 90 3RF Dose Instruction: TAKE 1 TABLET BY MOUTH DAILY Rx Instructions: TAKE 1 TABLET BY MOUTH DAILY lisinopril 2.5 mg tablet 2.5 mg PO DAILY Qty: 90 3RF magnesium oxide 400 mg (241.3 mg magnesium) tablet 400 mg PO DAILY Qty: 90 3RF metoprolol succinate 50 mg tablet extended release 24 hr 50 mg PO DAILY Qty: 90 3RF pantoprazole 40 mg tablet,delayed release (DR/EC) See Rx Instructions .ROUTE .COMPLEX Qty: 90 3RF Dose Instruction: TAKE 1 TABLET BY MOUTH EVERY MORNING AT LEAST 30 MINUTES BEFORE FIRST MEAL Rx Instructions: TAKE 1 TABLET BY MOUTH EVERY MORNING AT LEAST 30 MINUTES BEFORE FIRST MEAL rosuvastatin [Crestor] 40 mg tablet 40 mg PO HS Qty: 90 3RF Rx Instructions: FOR CHOLESTEROL & HEART PROTECTION spironolactone 25 mg tablet 12.5 mg PO DAILY Qty: 45 3RF (DME) lancing device with lancets Kit See Rx Instructions .Route Qty: 1 0RF Rx Instructions: Check blood sugars QID DX: E11.9. He is insulin dependent DM. polyethylene glycol 3350 [Miralax] 17 gram/dose powder 17 g PO DAILY PRN (Reason: constipation) Qty: 119 0RF ketoconazole 2 % cream 1 applic topical DAILY Qty: 120 6RF Rx Instructions: Apply to toenails once daily insulin degludec [Tresiba FlexTouch U-100] 100 unit/mL (3 mL) insulin pen 74 unit subcut QHS Qty: 0 0RF sertraline 50 mg tablet 50 mg PO DAILY Qty: 90 0RF clopidogrel 75 mg tablet See Rx Instructions .ROUTE .COMPLEX Qty: 90 3RF Dose Instruction: TAKE 1 TABLET BY MOUTH DAILY Patient Comments: Pt. states his PCP IS aware he has been off this medication for 2 weeks Rx Instructions: TAKE 1 TABLET BY MOUTH DAILY insulin aspart U-100 [Novolog FlexPen U-100 Insulin] 100 unit/mL (3 mL) insulin pen See Rx Instructions subcut AC Qty: 45 3RF Patient Comments: pt has not been taking since jul due to lack of availability Rx Instructions: Carb count: 1-2 servings 5 units, 3-4 20 units, 5-6 30 units, 7-10 35 units, 10+ 40 units; plus sliding scale: 135-150 1 unit, 151-165 2 units, 166-180 3 units, 181-195 4 units, 196-210 5 units, 211-225 6 units, 226-240 7 units, 241- 260 8 units, 261-275 9 units, 276-290 10 units, 291-305 11 units, 306-320 12 units, 321-345 13 units, 346-360 14 units, 361-375 15 units, 376-390 16 units, 391-405 17 units, 406-420 18 units, 421-435 19 units, 436-450 20 units, 451-465 21 units, 446-480 22 units, 481-495 23 units isosorbide mononitrate 30 mg tablet extended release 24 hr See Rx Instructions .ROUTE .COMPLEX Qty: 90 3RF Dose Instruction: TAKE 1 TABLET BY MOUTH DAILY Rx Instructions: TAKE 1 TABLET BY MOUTH DAILY nitroglycerin 0.4 mg tablet, sublingual 0.4 mg SL Q5M MDD 3 doses PRN (Reason: chest pain) Qty: 30 0RF Rx Instructions: Take 0.4 mg every 5 minutes up to 3 doses; seek emergent medical care if no relief cholecalciferol (vitamin D3) 25 mcg (1,000 unit) tablet 2,000 mcg PO DAILY Qty: 60 0RF (DME) FreeStyle Flako 3 Sensor Device See Rx Instructions .Route Qty: 6 12RF Rx Instructions: DX: E11.9. Insulin Dependent DM type II. Keep A1c below 7. (DME) Diabetic Shoes See Rx Instructions .Route .MEDSUPPLY Qty: 1 0RF Rx Instructions: As directed (DME) blood-glucose meter [FreeStyle Lite Meter] Kit See Rx Instructions .Route Qty: 1 0RF Rx Instructions: Check blood sugar QID DX: E11.9. Keep A1c below 7 (DME) lancets [FreeStyle Lancets] 28 gauge misc See Rx Instructions .Route Qty: 100 2RF Rx Instructions: Check blood sugars QID. DX: E11.9. Keep A1c below 7. (DME) blood-glucose meter [Blood Glucose Monitoring] Kit See Rx Instructions .Route Qty: 1 0RF Rx Instructions: Check blood sugars QID. DX: E11.9. Keep A1c below 7. FILL WITH WHAT INSURANCE WILL COVER (DME) Blood Glucose Test Strip See Rx Instructions .Route Qty: 400 3RF Rx Instructions: Check Blood sugar QID. DXE11.8. Keep A1c below 7. FILL WITH WHAT EVER INSURANCE WILL COVER. (DME) lancets Misc See Rx Instructions .ROUTE .MEDSUPPLY Qty: 400 3RF Rx Instructions: Check blood glucose four times daily. On insulin. Dispense brand that is covered by insurance and compatible with blood sugar testing system budesonide-formoterol [Symbicort] 160-4.5 mcg/actuation HFA aerosol inhaler 2 puff inhalation BID Qty: 10.2 3RF semaglutide 0.25 mg or 0.5 mg(2 mg/1.5 mL) pen injector 0.5 mg subcut QWEEK Qty: 1.5 3RF (DME) pen needle, diabetic [BD Ultra-Fine Short Pen Needle] 31 gauge x 5/16 needle See Rx Instructions .ROUTE .COMPLEX Qty: 400 3RF Dose Instruction: USE ONCE DAILY TO ADMINISTER LANTUS Rx Instructions: Use as directed to administer insulin 4 times daily. famotidine 40 mg tablet 40 mg PO QHS Qty: 30 0RF Discharge Instructions Instructions: Dehydration, Adult ED, High Blood Sugar, Adult ED Additional Instructions: Please continue to monitor your symptoms closely and return immediately to the emergency department for any new or significant worsening of your symptoms. Please continue to check your blood sugar 3 times a day and use appropriate sliding scale based upon your results. It is also important to continue to stay well-hydrated as I feel that that has led to some of your symptoms today. Please follow-up with your primary care provider if your blood sugar continues to be elevated and difficult to control. Referrals: Oscar Weinstein DO [Primary Care Provider] - HPI General Mode of arrival: ambulatory . Date/Time Provider Initiated Documentation: 03/01/25 12:16 . Limitations to Documentation: no limitations . Information obtained by: patient and RN notes reviewed . History of Present Illness 59 year old M presents to the emergency department with the chief complaint of High blood sugar, Patient started experiencing this day(s) (2) and it has been constant. No relieving factors improve symptom(s), No exacerbating factors reported . Patient did receive the following treatments prior to arrival, other (Sliding scale insulin) Related Data Home Medications ?Medication ?Instructions ?Recorded ?Confirmed cyanocobalamin (vitamin B-12) 1,000 mcg PO DAILY #90 tab-caps 06/30/23 02/20/25 1,000 mcg tablet cholecalciferol (vitamin D3) 25 2,000 mcg (80 x 25 mcg (1,000 01/26/24 02/20/25 mcg (1,000 unit) tablet unit)) PO DAILY #60 tabs blood-glucose sensor (FreeStyle #6 ea 06/22/24 02/20/25 Flako 3 Sensor device) bupropion HCl 150 mg 24 hr tablet, 300 mg (2 x 150 mg) PO QAM #180 07/12/24 02/20/25 extended release tabs empagliflozin 25 mg tablet See Rx Instructions .Route 07/12/24 02/20/25 (Jardiance) .COMPLEX #90 tabs lisinopril 2.5 mg tablet 2.5 mg PO DAILY #90 tabs 07/12/24 02/20/25 magnesium oxide 400 mg (241.3 mg 400 mg PO DAILY #90 tab-caps 07/12/24 02/20/25 magnesium) tablet metoprolol succinate 50 mg 50 mg PO DAILY #90 tab-caps 07/12/24 02/20/25 tablet,extended release 24 hr pantoprazole 40 mg tablet,delayed See Rx Instructions .Route 07/12/24 02/20/25 release .COMPLEX #90 tabs rosuvastatin 40 mg tablet (Crestor) 40 mg PO HS #90 tab-caps 07/12/24 02/20/25 spironolactone 25 mg tablet 12.5 mg (1/2 x 25 mg) PO DAILY #45 07/12/24 02/20/25 tab-caps lancing device with lancets kit #1 ea 09/06/24 02/20/25 polyethylene glycol 3350 17 17 g PO DAILY PRN constipation 09/06/24 02/20/25 gram/dose oral powder (Miralax) #119 grams ketoconazole 2 % topical cream 1 applic topical DAILY #120 grams 10/09/24 02/20/25 Diabetic Shoes #1 ea 10/23/24 02/20/25 nitroglycerin 0.4 mg sublingual 0.4 mg sublingual Q5M PRN chest 10/23/24 5 tablet pain #30 tab-caps famotidine 40 mg tablet 40 mg PO QHS #30 tabs 11/05/24 02/20/25 blood-glucose meter (FreeStyle #1 ea 11/09/24 02/20/25 Lite Meter kit) lancets 28 gauge (FreeStyle #100 ea 11/09/24 02/20/25 Lancets) blood sugar diagnostic (Blood #400 ea 11/15/24 02/20/25 Glucose Test strips) blood-glucose meter (Blood Glucose #1 ea 11/15/24 02/20/25 Monitoring kit) lancets #400 ea 11/16/24 02/20/25 clopidogrel 75 mg tablet See Rx Instructions .Route 11/29/24 02/20/25 .COMPLEX #90 tabs insulin aspart U-100 100 unit/mL See Rx Instructions subcut AC #45 11/29/24 02/20/25 (3 mL) subcutaneous pen (Novolog mL FlexPen U-100 Insulin aspart) insulin degludec 100 unit/mL (3 74 unit (0.74 mL) subcut QHS Dx: 11/29/24 02/20/25 mL) subcutaneous pen (Tresiba E11.9 to maintain HbA1c less than FlexTouch U-100 insulin) 7% #0 SYRGS isosorbide mononitrate 30 mg See Rx Instructions .Route 11/29/24 02/20/25 tablet,extended release 24 hr .COMPLEX #90 tabs sertraline 50 mg tablet 50 mg PO DAILY #90 tabs 11/29/24 02/20/25 budesonide-formoterol HFA 160 2 puff inhalation BID #10.2 grams 12/20/24 02/20/25 mcg-4.5 mcg/actuation aerosol inhaler (Symbicort) semaglutide 0.25 mg or 0.5 mg (2 0.5 mg (0.374 mL) subcut QWEEK 12/20/24 02/20/25 mg/1.5 mL) subcutaneous pen #1.5 mL injector pen needle, diabetic 31 gauge x #400 ea 01/30/25 02/20/25/ (BD Ultra-Fine Short Pen Needle) Previous Rx's ?Medication ?Instructions ?Recorded cyanocobalamin (vitamin B-12) 1,000 mcg PO DAILY #90 tab-caps 06/30/23 1,000 mcg tablet cholecalciferol (vitamin D3) 25 2,000 mcg (80 x 25 mcg (1,000 01/26/24 mcg (1,000 unit) tablet unit)) PO DAILY #60 tabs blood-glucose sensor (FreeStyle #6 ea 06/22/24 Flako 3 Sensor device) bupropion HCl 150 mg 24 hr tablet, 300 mg (2 x 150 mg) PO QAM #180 07/12/24 extended release tabs empagliflozin 25 mg tablet See Rx Instructions .Route 07/12/24 (Jardiance) .COMPLEX #90 tabs lisinopril 2.5 mg tablet 2.5 mg PO DAILY #90 tabs 07/12/24 magnesium oxide 400 mg (241.3 mg 400 mg PO DAILY #90 tab-caps 07/12/24 magnesium) tablet metoprolol succinate 50 mg 50 mg PO DAILY #90 tab-caps 07/12/24 tablet,extended release 24 hr pantoprazole 40 mg tablet,delayed See Rx Instructions .Route 07/12/24 release .COMPLEX #90 tabs rosuvastatin 40 mg tablet (Crestor) 40 mg PO HS #90 tab-caps 07/12/24 spironolactone 25 mg tablet 12.5 mg (1/2 x 25 mg) PO DAILY #45 07/12/24 tab-caps lancing device with lancets kit #1 ea 09/06/24 polyethylene glycol 3350 17 17 g PO DAILY PRN constipation 09/06/24 gram/dose oral powder (Miralax) #119 grams ketoconazole 2 % topical cream 1 applic topical DAILY #120 grams 10/09/24 Diabetic Shoes #1 ea 10/23/24 nitroglycerin 0.4 mg sublingual 0.4 mg sublingual Q5M PRN chest 10/23/24 tablet pain #30 tab-caps famotidine 40 mg tablet 40 mg PO QHS #30 tabs 11/05/24 blood-glucose meter (FreeStyle #1 ea 11/09/24 Lite Meter kit) lancets 28 gauge (FreeStyle #100 ea 11/09/24 Lancets) blood sugar diagnostic (Blood #400 ea 11/15/24 Glucose Test strips) blood-glucose meter (Blood Glucose #1 ea 11/15/24 Monitoring kit) lancets #400 ea 11/16/24 clopidogrel 75 mg tablet See Rx Instructions .Route 11/29/24 .COMPLEX #90 tabs insulin aspart U-100 100 unit/mL See Rx Instructions subcut AC #45 11/29/24 (3 mL) subcutaneous pen (Novolog mL FlexPen U-100 Insulin aspart) insulin degludec 100 unit/mL (3 74 unit (0.74 mL) subcut QHS Dx: 11/29/24 mL) subcutaneous pen (Tresiba E11.9 to maintain HbA1c less than FlexTouch U-100 insulin) 7% #0 SYRGS isosorbide mononitrate 30 mg See Rx Instructions .Route 11/29/24 tablet,extended release 24 hr .COMPLEX #90 tabs sertraline 50 mg tablet 50 mg PO DAILY #90 tabs 11/29/24 budesonide-formoterol HFA 160 2 puff inhalation BID #10.2 grams 12/20/24 mcg-4.5 mcg/actuation aerosol inhaler (Symbicort) semaglutide 0.25 mg or 0.5 mg (2 0.5 mg (0.374 mL) subcut QWEEK 12/20/24 mg/1.5 mL) subcutaneous pen #1.5 mL injector pen needle, diabetic 31 gauge x #400 ea 01/30/25/16 (BD Ultra-Fine Short Pen Needle) Allergies Allergy/AdvReac Type Severity Reaction Status Date / Time bee venom protein (honey bee) Allergy Severe Swelling/Ed Verified 03/01/25 12:15 capri Penicillins Allergy Unknown Rash Verified 03/01/25 12:15 shellfish derived Allergy Unknown Rash; Verified 03/01/25 12:15 swelling General Stated Complaint: Diabetes VAN: 3 Review of Systems Constitutional Constitutional: Denies body ache(s), Denies chills, Denies fatigue and Reports lethargy Eyes Eyes: Denies blurry vision ENT Ears, Nose, Mouth, and Throat: Reports dizziness Cardiovascular Cardiovascular: Denies chest pain, Denies syncope and Denies dyspnea Respiratory Respiratory: Reports cough (Prolonged viral cold per patient) and Denies dyspnea Gastrointestinal Gastrointestinal: Denies abdominal pain, Denies diarrhea, Denies nausea and Denies vomiting Neurologic Neurologic: Reports dizziness and Denies syncope Endocrine Endocrine: Denies fatigue Exam Const General: cooperative and no acute distress Orientation: alert, awake and oriented x3 HENMT Mouth: moist mucous membranes Resp Effort & Inspection: normal respiratory effort, able to speak in complete sentences and no respiratory distress Auscultation: clear to auscultation bilaterally Cardio Rate: tachycardic Rhythm: regular rhythm Skin General skin exam: no rashes or lesions noted Neuro General: patient alert, patient awake, patient oriented x3, moves all extremities and no focal motor deficits Sensory Exam: no sensory deficits noted Course Vital Signs Vital signs: Vital Signs Temperature 36.6 C 03/01/25 12:12 Pulse 115 H 03/01/25 12:12 Respiratory Rate 24 03/01/25 12:12 Blood Pressure 152/91 H 03/01/25 12:12 Pulse Oximetry 97 03/01/25 12:12 Temperature 36.6 C 03/01/25 12:12 Temperature Source Oral 03/01/25 12:12 Pulse 115 H 03/01/25 12:12 Respiratory Rate 24 03/01/25 12:12 Blood Pressure 152/91 H 03/01/25 12:12 Blood Pressure Position Sitting 03/01/25 12:12 Pulse Oximetry 97 03/01/25 12:12 Oxygen Delivery Method Room Air 03/01/25 12:12 Oxygen Flow Rate 0 03/01/25 12:12 Pain Level 0 03/01/25 12:12 Medical Decision Making Patient presenting to the emergency department for chief complaint of high blood sugar. Patient reports recently he has had polyuria polydipsia and was meeting with a dietitian today and was recommended to come to the emergency department. Patient states that he is on a GLP-1 just for the past month or so on a long- acting insulin and short acting insulin. Patient reports that he checks his sugar 3 times a day and has noticed it being more elevated but typically runs 1- 2 100s and this morning was over 500. Patient did take some fast acting insulin before coming to the emergency department. The only additional symptom that patient is reporting is some slight lightheadedness but otherwise denies all other symptoms. Beyond tachycardia physical exam is otherwise unremarkable and patient is alert oriented and in stable condition. I do have concern for DKA so we will plan on establishing IV access, checking labs including VBG, giving 1 L of fluid and 10 units of insulin given that initial triage fingerstick is still 494. Patient does state history of DKA and that he has had to be admitted in the past. Reviewed patient's labs and CBC shows slightly high RBC and hemoglobin but otherwise nondiagnostic, VBG shows low pCO2 and total CO2 otherwise pH is 7.39 and all other findings within normal range, patient has some hyponatremia but corrected for glucose would be roughly 140, low chloride, elevated BUN and creatinine with a glucose of 429. UA did show significant amount of glucose but negative for ketones. At this time picture does not look consistent with DKA but more with hyperglycemia and dehydration. Chest x-ray reviewed along with radiologist interpretation that shows no acute findings. Repeat fingerstick glucose is now 277 and reassessed patient after fluids completed and he states significant improvement. Will do orthostatic vital signs given the patient still is showing some tachycardia and there is concern for potential still some dehydration but will discuss with patient after orthostatics are completed. Orthopedic showed stable blood pressure with positional changes but did note an increase in heart rate. Did offer patient more IV fluids but he states that he feels significantly better and would like to be discharged. Of note patient is still tachycardic but patient stated that he would hydrate at home, monitor glucose closely and return for new or worsening symptoms. Given that there is no signs of DKA at this time and otherwise stable workup I do feel that initial disposition for home is appropriate and patient understands low threshold to return for new or worsening symptoms. After discussion of diagnosis and plan of care patient has no further needs, questions, or concerns and states clear understanding to return to the emergency department for any worsening symptoms. This documentation was generated using [employer] system, please disregard any oddities of phrase or misspellings. Lab Data Lab results reviewed: Yes I reviewed the patient's lab results. Quality:SDOH Health Related Social Needs: No Data to Display PFSH All Active Problems (Updated 03/01/25 @ 14:56 by Amauri Malone NP) Acute dehydration (Acute) Uncontrolled diabetes mellitus with hyperglycemia (Acute) Closed fracture of proximal phalanx of right great toe (Acute) CKD (chronic kidney disease) (Chronic) Intermittent gross hematuria (Acute) Cough (Acute) Onychomycosis (Acute) PAD (peripheral artery disease) (Chronic) Pain in left foot (Acute) Ulcer of right foot limited to breakdown of skin (Acute) Compression fracture of L1 vertebra (Acute) Dizziness (Acute) Foot ulcer, left (Acute) Vitamin B12 deficiency (Acute) Subclinical hypothyroidism (Chronic ~02/2023) Monitor Obesity (Chronic) Hypomagnesemia (Chronic) Microalbuminuria (Chronic) Callus of foot (Chronic) Type 2 diabetes mellitus with retinopathy, with long-term current use of insulin (Chronic 10/27/17) Restless leg syndrome (Chronic 10/31/14) Sleep Medicine Obstructive sleep apnea, adult (Chronic 10/31/14) Pt. states he has not been using device 09/01/20 Severe, C-pap, Dr. Almeida continue on CPAP therapy with mask of choice,heated humidification and ramp. pressure should be set at 12 cm/H2o,alternatively auto CPAP 8-14 cm/H2O can be used. (sleep study note cameron Nonproliferative diabetic retinopathy (Chronic) Noncompliance with medication regimen (Chronic 07/06/13) Erectile dysfunction (Chronic 07/06/13) Essential hypertension (Chronic 07/06/13) Depression (Chronic 11/25/11) Sensorineural hearing loss, bilateral (Chronic 11/24/17) Conductive hearing loss in left ear (Acute) Medical History Constipation Orthostatic hypotension ASCVD (arteriosclerotic cardiovascular disease) (07/28/17) NSTEMI with HFrEF 07/11/2017 s/p MADONNA to mLAD on 07/14/2017 at [facility] Type 2 diabetes mellitus with hyperglycemia, with long-term current use of insulin (11/25/15) Hyperlipidemia (07/06/13) Gastroesophageal reflux disease Chronic HFrEF (heart failure with reduced ejection fraction) (07/20/18) 2018: LVEF 30-35% at presentation; most recent echo 07/24/2020: LVEF 40-45% PVD (peripheral vascular disease) Autonomic dysfunction with type 2 diabetes mellitus Peripheral neuropathy Kidney stones Osteomyelitis Diabetic foot ulcer Tubular adenoma of colon (10/18/14) NSTEMI (non-ST elevated myocardial infarction) (07/11/17) 06/2017: S/p MADONNA to mLAD at [facility]; DAPT for a minimum of 1 year Surgical History Lesion of oral mucosa 01/29/[address] Schuster. 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 No dysplasia. PAS stain negative for fungal organisms Colonoscopy - IV Sedation (10/14/14) tubular adenoma Dr. Blancas Cholecystectomy S/P coronary artery stent placement s/p MADONNA to LAD mid 2; Dr. Fercho Eddy, [facility], 07/14/2017 Family History Mother Essential hypertension Father Lung cancer Social History Smoking/Tobacco Use Status: Never Smoking risk assessment performed?: Yes Alcohol Intake: never Drug use: Never Substance use type: does not use Adopted: No Caregiver/Support person: Yes Foster care: No Household members: spouse Housing: apartment Number of Children: 1 Communication Needs: Hard of Hearing Education Level: high school Do you need help understanding health information?: Never 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 Pets and animals: No Current gender identity: male What is your relationship status?: How often do you talk on the phone with friends or family?: three or more times per week How often do you get together with friends or relatives?: twice per week Do you belong to any clubs or organized social groups?: no Panel score (0-1 are the most socially isolated patients): 2 What type of physical activity do you participate in: walking and other Details: skiing, snowboarding. 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 car driver: No Do you feel safe at home: Yes Do you feel safe in your relationship?: Yes
[2025-03-01 12:47] LABS: Abs Immature Grans 0.05 10^3/uL (0.0-0.06); Absolute Basophil Count 0.09 10^3/uL (0.0-0.2); Absolute Eosinophil Count 0.25 10^3/uL (0.0-0.7); Absolute Lymphocyte Count 2.63 10^3/uL (1.2-3.4); Absolute Monocyte Count 0.58 10^3/uL (0.1-0.8); Absolute Neutrophil Count 4.18 10^3/uL (1.2-6.7); Basophils % 1.2 %; Eosinophils % 3.2 %; HCT 49.5 % (40.0-50.0); HGB 17.6 g/dL (13.5-17.5); Immature Grans % 0.6 %; Lymphocytes % 33.8 %; MCH 30.4 pg (27.0-33.0); MCHC 35.6 % (32.0-36.0); MCV 86 fL (80-95); MPV 9.6 fL (8.0-11.0); Monocytes % 7.5 %; Neutrophils % 53.7 %; Platelet Count 276 10^3/uL (130-400); RBC 5.79 10^6/uL (4.36-5.78); RDW-SD 40.2 fL; WBC 7.78 10^3/uL (4.4-10.8)
[2025-03-01 12:51] LABS: BE (Venous) 0 mmol/L (-2-3); HCO3 (Venous) 25 mmol/L (23-28); O2 Sat (Venous) 92 %; TCO2 (Venous) 21 mmol/L (24-29); pCO2 (Venous) 40 mmHg (41-51); pH (Venous) 7.39 (7.31-7.41); pO2 (Venous) 60 mmHg
[2025-03-01] MEDS: Normal Saline 1,000 ML 1000 ML IV (12:55)
[2025-03-01] MEDS: Insulin REGULAR-Human 100 UNITS/ML UNIT 10 UNITS SC (12:55)
[2025-03-01 13:03] LABS: Bilirubin Negative (Negative); Blood Negative (Negative); Clarity Clear (Clear); Glucose >=1000 mg/dL (Negative); Ketones Negative (Negative); Leukocyte Esterase Negative (Negative); Nitrite Negative (Negative); Urobilinogen 0.2 mg/dL (Up to 0.2)
[2025-03-01 13:05] VITALS: BP 123/95; PULSE 103; RESP 16; O2SAT 95
[2025-03-01 13:12] LABS: Bacteria Rare HPF (Negative); C & S Indicated? No; Epithelial Cells Rare HPF (Negative); RBC 0-2 HPF (0-2); WBC 0-2 HPF (0-5)
[2025-03-01 13:14] LABS: ALT 34 U/L (16-63); AST 17 U/L (15-37); Albumin 3.8 g/dL (3.4-5.0); Alkaline Phosphatase 343 U/L (46-116); Anion Gap 7.2 mmol/L (3-11); BUN 22 mg/dL (7-18); Bilirubin, Total 0.5 mg/dL (0.2-1.0); CO2 25.8 mmol/L (21.0-32.0); CREATININE 1.4 mg/dL (0.70-1.30); Calcium 10.1 mg/dL (8.5-10.1); Chloride 97 mmol/L (98-107); Estimated GFR 57.18 (mL/min/1.73m2); Glucose 429 mg/dL (74-106); Magnesium 1.8 mg/dL (1.8-2.4); Sodium 130 mmol/L (136-145); Total Protein 8.3 g/dL (6.4-8.2)
[2025-03-01 13:48] VITALS: BP 137/87; PULSE 110; RESP 22; TEMP 36.9; O2SAT 96
[2025-03-01 14:36] VITALS: BP 148/93; BP 152/99; BP 157/112; PULSE 100; PULSE 105; PULSE 119
[2025-03-01 15:03] VITALS: BP 146/99; PULSE 105; RESP 16; O2SAT 97
== END 2025-03-01 15:15 | disposition home or self-care (01) ==
PROVIDERS: Emergency Provider Nurse Practitioner Family; PCP Family Medicine
DX: E11.65 Type 2 diabetes mellitus with hyperglycemia (principal); I25.10 Atherosclerotic heart disease of native coronary artery without angina pectoris; I25.2 Old myocardial infarction; E11.40 Type 2 diabetes mellitus with diabetic neuropathy, unspecified; E11.22 Type 2 diabetes mellitus with diabetic chronic kidney disease; I13.0 Hypertensive heart and chronic kidney disease with heart failure and stage 1 through stage 4 chronic kidney disease, or unspecified chronic kidney disease; N18.9 Chronic kidney disease, unspecified; E78.5 Hyperlipidemia, unspecified; Z95.5 Presence of coronary angioplasty implant and graft; Z79.84 Long term (current) use of oral hypoglycemic drugs; Z79.4 Long term (current) use of insulin; Z79.02 Long term (current) use of antithrombotics/antiplatelets
CPT/HCPCS: 80053; 82805; 82962; 99284; 71046; 81003; 81015; 83735; 85025; J1815

== ENCOUNTER 2025-03-22 09:39 | Outpatient (CLI) | payer MEDICARE, MEDICAID, SELFPAY ==
--- NOTE | 2025-03-22 16:00 | RT.EKG_ITS ---
APPROVED REPORT Exam: Resting ECG Reason for Exam: Dizziness Patient Location: O HR:95 bpm ECG Measurements Heart Rate 95 AXIS NV 181 P 3 QRSd 118 QRS -53 QT 364 T 73 QTc 458 Conclusion Sinus rhythm...normal P axis, V-rate 50- 99 Left axis
== END 2025-03-22 09:40 | disposition home or self-care (01) ==
LOC: DI.KIM 16:04
PROVIDERS: PCP Family Medicine; Referring Provider Family Medicine; Visit Provider Physical Therapy Assistant
DX: I25.10 Atherosclerotic heart disease of native coronary artery without angina pectoris (principal); R42 Dizziness and giddiness
CPT/HCPCS: 93010; 93922

== ENCOUNTER 2025-04-23 01:10 | Outpatient (CLI) | payer MEDICARE, MEDICAID, SELFPAY ==
--- NOTE | 2025-04-23 14:40 | DI.US_ITS ---
Exam(s) US CAROTID EXAM: US CAROTID CLINICAL HISTORY: Symptomatic orthostasis,orthostatic dizziness,r42. TECHNIQUE: Ultrasound carotids performed using grayscale, color-flow, and spectral Doppler imaging. COMPARISON: US POCUS EXAM from 01/01/2025 FINDINGS: RIGHT CAROTID ARTERY: Plaque: Mild calcific plaque is seen in the mid common carotid artery, the carotid bulb and the proxi mal internal carotid artery. Velocity elevation: None. LEFT CAROTID ARTERY: Plaque: Minimal calcific plaque is seen in the mid common carotid artery. Velocity elevation: None. VERTEBRAL ARTERIES: Antegrade flow. Measurements: R Bulb: 51.7cm/s PS / 10.2cm/s ED R CCA: 73.7cm/s PS / 12.8cm/s ED R ECA: 83.4cm/s PS / 10.1cm/s ED R ICA Prox: 47.4cm/s PS / 12.7cm/s ED R ICA Mid: 67.6cm/s PS / 26.7cm/s ED R ICA Distal: 65cm/s PS /25.4cm/s ED R Vert: 31.8cm/s PS / 7.5cm/s ED R SVR: 0.9 R DVR: 2.1 L Bulb: 61cm/s PS / 13.6cm/s ED L CCA: 70cm/s PS / 15.2cm/s ED L ECA: 59.7cm/s PS / 0cm/s ED L ICA Prox: 67.2cm/s PS / 12.3cm/s ED L ICA Mid: 42.3cm/s PS / 13.6cm/s ED L ICA Distal: 38.5cm/s PS / 14.8cm/s ED L Vert: 36cm/s PS / 12.3cm/s ED L SVR: 1 L DVR: 0.8 IMPRESSION: No evidence for hemodynamically significant carotid stenosis. Criteria for Carotid Stenosis: Normal: ICA PSV <125 cm/s no plaque or intimal thickening is visible. <50% stenosis: ICA PSV <125 cm/s and plaque or intimal thickening is visible. 50-69% stenosis: ICA PSV is 125-250 cm/s and plaque is visible. >70% stenosis to near occlusion: ICA PSV >250 cm/s with visible plaque and luminal narrowing. DATA REPOSITORY:
== END 2025-04-23 01:30 ==
LOC: DI 01:10
PROVIDERS: PCP Family Medicine; Visit Provider Family Medicine
DX: R42 Dizziness and giddiness (principal)
CPT/HCPCS: 93880